=== PATIENT | female | born 1970 | race Caucasian/White ===

== ENCOUNTER 2020-03-03 01:52 | Inpatient (IN) | payer OTHER, SELFPAY ==
[2020-03-03] VITALS (13 sets, daily range): BP systolic 84–128; BP diastolic 51–85; PULSE 75–89; RESP 14–20; TEMP 36.6–37.1; O2SAT 91–100; BMI 52.7
--- NOTE | 2020-03-03 | ECG_ITS ---
Test Reason : OD Blood Pressure : / mmHG Vent. Rate : 077 BPM Atrial Rate : 077 BPM P-R Int : 182 ms QRS Dur : 078 ms QT Int : 422 ms P-R-T Axes : -14 027 022 degrees QTc Int : 477 ms Normal sinus rhythm Normal ECG When compared with ECG of 03-MAR-2020 02:36, Nonspecific T wave abnormality no longer evident in Anterior leads Referred By: Imelda Hoyt Electronically Signed By:SHAYLEE MEEHAN MD
--- NOTE | 2020-03-03 02:26 | ECG_ITS ---
Test Reason : overdose Blood Pressure : / mmHG Vent. Rate : 088 BPM Atrial Rate : 088 BPM P-R Int : 160 ms QRS Dur : 082 ms QT Int : 404 ms P-R-T Axes : -13 037 026 degrees QTc Int : 488 ms Normal sinus rhythm Nonspecific T wave abnormality Prolonged QT Abnormal ECG No previous ECGs available Referred By: Chelsea Mendez Electronically Signed By:SHAYLEE MEEHAN MD
--- NOTE | 2020-03-03 02:41 | PC.NURSE ---
Pt to room #17 after taking unknown amt of seroquel which she has been pocketing from visiting nurse at home. Pt arrives alert and sleepy, slurring speech. pt chg into hospital gown with security at bedside. Belongings locked up. Pt on monitor with HR 86. PO 98% on RA. VS obtained. Sitter at bedside with pt for safety. HL inserted into right foot. Pt is a very difficult stick d/t substance abuse according to EMS. EKG obtained to MD for eval. Awaiting for further orders.
[2020-03-03] MEDS: 0.9 % Sodium Chloride 1,000 ML 999 ML IVCONT ×2 (03:00→07:10)
[2020-03-03 03:05] LABS: MANUAL DIFF FLAG NO
[2020-03-03 03:07] LABS: Basophils Percent Auto 0.2 % (0-2); Hemoglobin 11.9 g/dl (12.0-16.0); Lymphocytes Absolute Auto 1.7 X10*3/uL (1.2-4.9); Lymphocytes Percent Auto 31.3 % (20-40); Mean Corpuscular HGB Conc 32.2 g/dl (31.0-35.0); Mean Corpuscular Hemoglobin 28.1 pg (27.0-33.0); Mean Corpuscular Volume 87.5 fL (80-98); Mean Platelet Volume 11.4 fL (9.4-12.3); Monocytes Absolute Auto 0.5 X10*3/uL (0.1-1.2); Monocytes Percent Auto 8.2 % (2-11); Neutrophils Absolute Auto 3.3 X10*3/uL (2.0-8.3); Neutrophils Percent Auto 60.3 % (45-73); Platelet Count 214 X10*3/uL (160-400); Red Blood Count 4.23 X10*6/uL (4.20-5.50); Red Cell Distribution Width 16.5 % (11.0-16.0); White Blood Count 5.5 X10*3/uL (4.8-10.8)
[2020-03-03 03:28] LABS: Ethanol 73 mg/dL
[2020-03-03 03:32] LABS: Acetaminophen LAB < 1 mcg/mL (<30); Alanine Aminotransferase 10 U/L (0-31); Albumin Level 4.3 g/dL (3.5-5.0); Alkaline Phosphatase 93 U/L (39-117); Anion Gap 19 (12-20); Aspartate Amino Transferase 14 U/L (5-31); Bilirubin Total 0.3 mg/dL (0.0-1.0); Blood Urea Nitrogen 12 mg/dL (9-16); Carbon Dioxide 19 mmol/L (22-29); Chloride 109 mmol/L (96-108); Estimated Glomerular Filt Rate > 60; Glucose Random 110 mg/dL (60-115); Potassium 3.2 mmol/l (3.3-5.1); Salicylate < 5.0 mg/dL (15-30); Sodium 144 mmol/L (135-145); Total Protein 7.6 g/dL (6.5-8.0)
--- NOTE | 2020-03-03 03:49 | PC.NURSE ---
Reported pt to Poison Control which recommended the following: Monitor pt for 12 hrs, watch for REPEAT CHIEF and respiratory depression. Intubate if loses airway, Give fluids if becomes hypotensive. Watch for QT prolongation, Torsades, tachycardia, seizure activity. Repeat CMP, Tylenol and ASA in [address] Mendez aware of guidelines.
--- NOTE | 2020-03-03 06:43 | ED.OVERDOSE ---
HPI - Overdose General Chief Complaint: Overdose Stated Complaint: overdose Time Seen by Provider: 03/03/20 02:24 History of Present Illness HPI Narrative: patient is a 50-year-old female admitted to using alcohol and Seroquel prior to arrival and attempt to kill herself. Patient unsure as to the number tablets of Seroquel. Unsure as to the dose of the Seroquel patient thinks that she took it approximately 1 hour prior to arrival in the emergency department. She denies any chest pain and shortness of breath. She denies any other medication. Normally gets her meds through a visiting nurse. Patient somehow got a hold of Seroquel. Patient denies any marijuana or heroin use. Patient denies any cocaine use. She is from home. Related Data Allergies Allergy/AdvReac Type Severity Reaction Status Date / Time trazodone [TRAZODONE] Allergy Severe SHORTNESS Unverified 01/25/20 15:23 OF BREATH, GASPING FOR AIR , SOB aspirin [ASPIRIN] Allergy Unknown STOMACH Unverified 01/25/20 15:23 UPSET, Nausea, nausa ciprofloxacin [Cipro] Allergy Unknown Rash Verified 10/02/15 00:00 promethazine [Phenergan] Allergy Unknown Hives Verified 10/02/15 00:00 Sulfa (Sulfonamide Allergy Unknown Verified 10/02/15 00:00 Antibiotics) From [facility] Allergy Unknown HIVES Uncoded 01/25/20 15:23 From [facility] Allergy Unknown HIVES Uncoded 01/25/20 15:23 Review of Systems Review of Systems: Patient refused to answer detailed review of system PMFSH Past Medical History Attestation statement: The following information was validated with the patient. Social History Social History 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: current Alcohol type: hard liquor Smoking Status: Current every day smoker Use of substances other than those prescribed or required for medical reasons: Unable to respond Advance Directives: No Advance Directives Information Provided: No Physical Exam Vital Signs: Vital Signs: Vital Signs Temp Pulse Resp BP Pulse Ox 03/03/20 04:00 85 16 93/58 L 97 03/03/20 03:28 86 18 100/58 L 97 03/03/20 02:11 98 F 89 18 91/53 L 97 Body Mass Index 52.7 Appearance: Alert. Oriented X3. No acute distress. Eyes: Pupils equal, round and reactive to light. ENT: Pharynx normal. Neck: Normal inspection. Neck supple. No lymph nodes noted. No crepitus CVS: Normal heart rate and rhythm. Pulses normal. Normal S1 and S2 Respiratory: No respiratory distress. Breath sounds normal. No Wheezing. No rales Abdomen: Soft and nontender. No rigidity. No distention. good BS x4 Skin: Skin warm and dry. Normal skin color. Normal skin turgor. Extremities: No lower extremity edema. Neurovascular intact to all extremities. No Lacerations. No Rash Neuro: Oriented X 3. No motor deficit. No sensory deficit. Moving all extermities. No slurred speech MDM - Overdose MDM Narrative Medical decision making narrative: patient's EKG showed a sinus pattern heart rate is 88. Patient's QTC is 488. patient monitor in the emergency department. Case was discussed with poison control. Agree to plan of monitoring for the next 10 hours. Patient will be referred for crisis intervention. Patient's aspirin and Tylenol levels were negative. Electrolytes unremarkable. Patient monitor in the emergency department with no ill affects. Will make sure Patient get a Evaluated by crisis. Lab Data Result diagrams: 03/03/20 02:59 03/03/20 02:59 Labs: Lab Results 03/03/20 03/03/20 03/03/20 Range/Units 02:59 02:59 02:59 WBC 5.5 (4.8-10.8) X10*3/uL RBC 4.23 (4.20-5.50) X10*6/uL Hgb 11.9 L (12.0-16.0) g/dl Hct 37.0 (37-47) % MCV 87.5 (80-98) fL MCH 28.1 (27.0-33.0) pg MCHC 32.2 (31.0-35.0) g/dl RDW 16.5 H (11.0-16.0) % Plt Count 214 (160-400) X10*3/uL MPV 11.4 (9.4-12.3) fL Immature Gran % (Auto) 0.0 (0.0-0.4) % Neut % (Auto) 60.3 (45-73) % Lymph % (Auto) 31.3 (20-40) % [place] % (Auto) 8.2 (2-11) % Eos % (Auto) 0.0 (0-4) % Baso % (Auto) 0.2 (0-2) % Lymph # (Auto) 1.7 (1.2-4.9) X10*3/uL [place] # (Auto) 0.5 (0.1-1.2) X10*3/uL Eos # (Auto) 0.0 (0.0-0.4) X10*3/uL Baso # (Auto) 0.0 (0.0-0.2) X10*3/uL Abs Immat Gran (auto) 0.00 (0.00-0.03) X10*3/uL Absolute Neuts (auto) 3.3 (2.0-8.3) X10*3/uL Absolute Nucleated RBC 0.000 (0.0-0.012) X10*3/uL Nucleated RBC % (auto) 0.0 (0.0-0.2) /100WBC Sodium 144 (135-145) mmol/L Potassium 3.2 L (3.3-5.1) mmol/l Chloride 109 H (96-108) mmol/L Carbon Dioxide 19 L (22-29) mmol/L Anion Gap 19 (12-20) BUN 12 (9-16) mg/dL Creatinine 0.75 (0.5-1.4) mg/dL Estim Creat Clear Calc 121.0 Estimated GFR > 60 Random Glucose 110 (60-115) mg/dL Calcium 9.0 (8.4-10.2) mg/dL Total Bilirubin 0.3 (0.0-1.0) mg/dL AST 14 (5-31) U/L ALT 10 (0-31) U/L Alkaline Phosphatase 93 (39-117) U/L Total Protein 7.6 (6.5-8.0) g/dL Albumin 4.3 (3.5-5.0) g/dL Salicylates < 5.0 L (15-30) mg/dL Acetaminophen < 1 (<30) mcg/mL Ethyl Alcohol 73 mg/dL
--- NOTE | 2020-03-03 07:10 | PC.NURSE ---
REPORT RECEIVED FROM BIANCA SANTORO. PT SLEEPING ON STRETCHER. AROUSABLE TO VERBAL STIMULI, BUT DRIFTS BACK TO SLEEP QUICKLY. ORIENTED X4. SKIN WPD. RR WNL, BUT SPO2 91-93% ON RA; PLACED ON 2L VIA NC. HYPOTENSIVE AT 80S/40S; MD MADE AWARE AND 1L NS NOW INFUSING PER MD VERBAL ORDER. NSR ON MONITOR. 1:[address] WILL CONTINUE TO MONITOR.
--- NOTE | 2020-03-03 08:39 | PC.NURSE ---
faxed release form to [facility] to get dose info.
--- NOTE | 2020-03-03 08:47 | PC.NURSE ---
methadone dose verified. form faxed to pharmacy
--- NOTE | 2020-03-03 09:43 | PC.NURSE ---
ATTEMPTED TO ASSIST PATIENT WITH AMBULATION TO BATHROOM, BUT PT C/O DIZZINESS AND WEAKNESS UPON SITTING UP TO SIDE OF BED. ASSISTED BACK TO LYING POSITION AND BED SOTO USED.
[2020-03-03 10:00] LABS: Amphetamine Screen Urine Not Detected (Not Detect); Barbiturates, Urine Not Detected (Not Detect); Benzodiazepines Screen Urine POSITIVE (Not Detect); Cannabinoid Screen Urine Not Detected (Not Detect); Cocaine Screen Urine POSITIVE (Not Detect); Opiate Screen Urine Not Detected (Not Detect); Phencyclidine Screen Urine Not Detected (Not Detect)
--- NOTE | 2020-03-03 11:37 | PC.NURSE ---
PT STOOD UP FROM STRETCHER, BUT TOO UNSTEADY ON FEET TO WALK TO BATHROOM. ASSISTED BACK INTO BED AND ASSISTED WITH BED SOTO.
[2020-03-03 12:35] LABS: Acetaminophen LAB < 1 mcg/mL (<30); Anion Gap 13 (12-20); Blood Urea Nitrogen 12 mg/dL (9-16); Calcium 8.2 mg/dL (8.4-10.2); Carbon Dioxide 19 mmol/L (22-29); Chloride 115 mmol/L (96-108); Creatinine Clr Calc Pharmacy 126.1; Estimated Glomerular Filt Rate > 60; Glucose Random 73 mg/dL (60-115); Potassium 3.7 mmol/l (3.3-5.1); Sodium 143 mmol/L (135-145)
[2020-03-03 12:44] LABS: Salicylate < 5.0 mg/dL (15-30)
[2020-03-03] MEDS: methADONE HCl 10 MG TABLET 9 MG PO (13:05)
--- NOTE | 2020-03-03 14:10 | PC.NURSE ---
pt ambulating independently to and from restroom. denies any dizziness. gait steady. sitter accompanying.
--- NOTE | 2020-03-03 14:28 | PC.NURSE ---
pt now medically cleared. n faxed.
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
--- NOTE | 2020-03-03 17:13 | PC.NURSE ---
Received call from [facility] stating that they never received a fax- refaxed and called again.
--- NOTE | 2020-03-03 17:50 | PC.NURSE ---
Pt reporting anxiety, states she normally has clonopin prn. Pt awake, alert. Declining tylenol or motrin for back pain.
[2020-03-03] MEDS: clonazePAM 1 MG TABLET PO (20:13)
[2020-03-03] MEDS: Zolpidem Tartrate 5 MG TABLET 10 MG PO (22:15)
--- NOTE | 2020-03-03 22:24 | PC.NURSE ---
Patient medication rec redone by calling her pharmacy and have them fax medication list, Patient has active Oxcarbazapine order per pharmacy, since patient's medication is handled by visiting nurse, patient has not clue what has been picked from Pharmacy. Patient informed this blog writer that she has stopped taking Trileptal for long time because medication caused her feel uncomfortable. Provider notified/medication discontinued.
[2020-03-04 05:51] VITALS: BP 115/73; PULSE 84; RESP 16; TEMP 36.9; O2SAT 97
--- NOTE | 2020-03-04 06:07 | PC.NURSE ---
[facility] called/spoke with Lorrie VALENZUELA/verified methadone dose. Patient takes 9 mg and last dose was 0n 03/02/20, patient received her 03/03/20 dose in main ED as one time order, Provider notified/approved/pending emar update. Patient in bed lying, awake, resting, will continue to monitor.
--- NOTE | 2020-03-04 07:13 | PC.NURSE ---
PT SITTING IN ROOM EATING BREAKFAST. NO SIGN OF DISTRESS NOTED. RESPIRATIONS EVEN/UNLABORED BILATERALLY. WILL CONTINUE TO MONITOR.
[2020-03-04] MEDS: Venlafaxine HCl ER 75 MG CAP.ER.24H PO (09:03)
[2020-03-04] MEDS: methADONE HCl 10 MG TABLET PO (09:03)
[2020-03-04] MEDS: Venlafaxine HCl ER 150 MG CAP.ER.24H PO (09:03)
[2020-03-04 09:12] VITALS: BP 129/78; PULSE 70; TEMP 36.4; O2SAT 98
[2020-03-04] MEDS: clonazePAM 0.5 MG TABLET PO (09:44)
[2020-03-04 10:00] VITALS: RESP 16
--- NOTE | 2020-03-04 12:25 | PC.NURSE ---
pt resting in room, respirations even/unlabored bilaterally, no sign of distress at this time. will continue to monitor.
[2020-03-04] MEDS: LORazepam 1 MG TABLET 2 MG PO (15:12)
--- NOTE | 2020-03-04 15:20 | PC.NURSE ---
Report received. Pt resting in bed, reporting anxiety, given ativan 2 MG PO. No other complaints. Continues to be a section 12 bed search.
[2020-03-04 15:53] VITALS: BP 122/74; PULSE 70; RESP 18; TEMP 37.1; O2SAT 98
--- NOTE | 2020-03-04 18:56 | PC.NURSE ---
Pt currently standing in doorway. Calm. No complaints at this time.
--- NOTE | 2020-03-04 20:13 | PC.NURSE ---
Pt had been sleeping but woke easily. Stated she is no longer suicidal but is depressed. is calm and cooperative. awaiting bedsearch results.
[2020-03-04] MEDS: clonazePAM 1 MG TABLET PO (20:43)
[2020-03-04] MEDS: QUEtiapine Fumarate 100 MG TABLET 250 MG PO (20:44)
[2020-03-04] MEDS: Zolpidem Tartrate 5 MG TABLET 10 MG PO (21:44)
[2020-03-05 00:32] VITALS: BP 101/66; PULSE 86; RESP 18; TEMP 37.2; O2SAT 96
[2020-03-05 06:34] VITALS: BP 115/73; PULSE 88; RESP 18; TEMP 35.8; O2SAT 95
[2020-03-05] MEDS: Ibuprofen 600 MG TABLET PO (06:43)
--- NOTE | 2020-03-05 07:00 | PC.NURSE ---
Report recieved. Pt currently eating breakfast, denies complaints. PT is inpatient bedsearch.
[2020-03-05] MEDS: Venlafaxine HCl ER 150 MG CAP.ER.24H PO (08:26)
[2020-03-05] MEDS: clonazePAM 0.5 MG TABLET PO ×2 (08:26→17:55)
[2020-03-05] MEDS: Venlafaxine HCl ER 75 MG CAP.ER.24H PO (08:26)
[2020-03-05 08:56] VITALS: BP 102/64; PULSE 66; RESP 18; TEMP 36.6
[2020-03-05] MEDS: QUEtiapine Fumarate 25 MG TABLET PO (13:48)
[2020-03-05 16:31] VITALS: BP 117/72; PULSE 74; RESP 20; TEMP 36.9; O2SAT 96
[2020-03-05 19:06] VITALS: BP 136/91; PULSE 68; RESP 20; TEMP 37; O2SAT 98
[2020-03-05] MEDS: LORazepam 1 MG TABLET 2 MG PO (19:09)
--- NOTE | 2020-03-05 19:11 | PC.NURSE ---
pt feeling aggitated, pt is aox3 denies pain, steady gait. po drink and snack given. pt treated with ativan po prn. pt calm and cooperative.
--- NOTE | 2020-03-05 20:57 | PC.NURSE ---
pt seen by laly receiving [facility] for abscess under pt right arm. expressed by provider and waiting order for antibx. pt roxana well,
[2020-03-05] MEDS: clonazePAM 1 MG TABLET PO (21:08)
[2020-03-05] MEDS: cephALEXin 500 MG CAPSULE PO (21:08)
[2020-03-05] MEDS: QUEtiapine Fumarate 100 MG TABLET 250 MG PO (21:09)
[2020-03-05] MEDS: OXcarbazepine 300 MG TABLET 600 MG PO (21:09)
--- NOTE | 2020-03-05 22:10 | PC.NURSE ---
Patient sitting in her bed watching TV, denied distress, will continue to monmitor.
[2020-03-06 00:12] VITALS: BP 94/58; PULSE 89; RESP 17; TEMP 36.8; O2SAT 97
--- NOTE | 2020-03-06 00:38 | PC.NURSE ---
Patient in bed appears sleeping, no distress observed/reported, respiration +/=/non-labored bilaterally. Will continue to monitor.
--- NOTE | 2020-03-06 02:12 | PC.NURSE ---
Patient in bed appears sleeping, no distress observed/reported, respiration +/=/non-labored bilaterally. Will continue to monitor for safety and provide comfort.
--- NOTE | 2020-03-06 04:08 | PC.NURSE ---
Patient in bed lying, awake, watching TV, no distress reported, out of room for snacks and TV remote. Will continue to monitor.
--- NOTE | 2020-03-06 06:05 | PC.NURSE ---
Patient in bed appears sleeping, no distress observed/reported, respiration +/=/non-labored bilaterally, will continue to monitor, provide comfort & safety.
--- NOTE | 2020-03-06 06:49 | PC.NURSE ---
Report recieved. Pt currently sleeping, respirations even and unlabored, in no apparent distress. Pt is inpatient bedsearch.
[2020-03-06 06:54] VITALS: BP 107/70; PULSE 77; RESP 18; TEMP 36.8; O2SAT 97
[2020-03-06] MEDS: QUEtiapine Fumarate 25 MG TABLET PO ×2 (07:19→16:54)
[2020-03-06 09:20] VITALS: BP 91/60; PULSE 83; TEMP 36.8
[2020-03-06] MEDS: Venlafaxine HCl ER 75 MG CAP.ER.24H PO (09:37)
[2020-03-06] MEDS: Venlafaxine HCl ER 150 MG CAP.ER.24H PO (09:37)
[2020-03-06] MEDS: cephALEXin 500 MG CAPSULE PO ×4 (09:37→21:14)
[2020-03-06] MEDS: clonazePAM 0.5 MG TABLET PO (10:23)
[2020-03-06 10:49] LABS: SARS COV2 PCR INHOUSE NEGATIVE (Negative)
--- NOTE | 2020-03-06 13:18 | PC.NURSE ---
PT aware of admission to m5 later today, pt reporting some anxiety, calm and cooperative.
[2020-03-06] MEDS: LORazepam 1 MG TABLET 2 MG PO (13:36)
[2020-03-06 16:43] VITALS: BP 94/67; PULSE 82; RESP 16; TEMP 36.2; O2SAT 97
[2020-03-06] MEDS: clonazePAM 1 MG TABLET PO (21:14)
[2020-03-06] MEDS: QUEtiapine Fumarate 100 MG TABLET 250 MG PO (21:15)
--- NOTE | 2020-03-06 22:03 | PC.NURSE ---
Pt is a 50 year old Northern Irish speaking femal
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
[2020-03-07 06:00] VITALS: BP 142/84; PULSE 100; RESP 16; TEMP 36.2; O2SAT 98
[2020-03-07] MEDS: QUEtiapine Fumarate 25 MG TABLET PO (06:10)
[2020-03-07 06:15] VITALS: BP 88/52; PULSE 91; RESP 16; TEMP 37
[2020-03-07] MEDS: cephALEXin 500 MG CAPSULE PO ×4 (09:28→20:08)
[2020-03-07] MEDS: Venlafaxine HCl ER 75 MG CAP.ER.24H PO (09:30)
[2020-03-07] MEDS: Venlafaxine HCl ER 150 MG CAP.ER.24H PO (09:30)
[2020-03-07] MEDS: LORazepam 1 MG TABLET 2 MG PO ×2 (10:05→16:43)
[2020-03-07] MEDS: clonazePAM 0.5 MG TABLET PO (14:16)
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
[2020-03-07 18:00] VITALS: BP 118/67; BP 96/51; PULSE 77; PULSE 91; RESP 16; TEMP 35.8; TEMP 36.6; O2SAT 96
[2020-03-07] MEDS: Zolpidem Tartrate 5 MG TABLET 10 MG PO (20:08)
[2020-03-07] MEDS: clonazePAM 1 MG TABLET PO (20:08)
[2020-03-07] MEDS: QUEtiapine Fumarate 100 MG TABLET 250 MG PO (20:09)
[2020-03-08 06:00] VITALS: BP 96/51; PULSE 91; TEMP 32.7; TEMP 35.8
[2020-03-08] MEDS: QUEtiapine Fumarate 25 MG TABLET PO ×2 (06:55→18:07)
[2020-03-08] MEDS: cephALEXin 500 MG CAPSULE PO ×4 (09:01→20:02)
[2020-03-08] MEDS: Venlafaxine HCl ER 75 MG CAP.ER.24H PO (09:02)
[2020-03-08] MEDS: Venlafaxine HCl ER 150 MG CAP.ER.24H PO (09:03)
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
[2020-03-08] MEDS: clonazePAM 0.5 MG TABLET PO ×2 (09:29→18:14)
[2020-03-08] MEDS: LORazepam 1 MG TABLET 2 MG PO (13:41)
[2020-03-08 18:00] VITALS: BP 121/71; BP 125/74; PULSE 73; PULSE 80; TEMP 36.8; TEMP 37.3
[2020-03-08] MEDS: QUEtiapine Fumarate 100 MG TABLET 250 MG PO (20:02)
[2020-03-08] MEDS: clonazePAM 1 MG TABLET PO (20:04)
--- NOTE | 2020-03-08 22:30 | PC.NURSE ---
Pt retracted her 3-day notice this pm. Dr Miller notified as was Mona Beal
[2020-03-09] MEDS: QUEtiapine Fumarate 25 MG TABLET PO (01:09)
[2020-03-09 06:20] VITALS: BP 97/56; PULSE 79; RESP 18; TEMP 36.9
[2020-03-09] MEDS: Venlafaxine HCl ER 75 MG CAP.ER.24H PO (09:02)
[2020-03-09] MEDS: Venlafaxine HCl ER 150 MG CAP.ER.24H PO (09:02)
[2020-03-09] MEDS: cephALEXin 500 MG CAPSULE PO ×4 (09:02→21:08)
[2020-03-09] MEDS: clonazePAM 0.5 MG TABLET PO (09:07)
--- NOTE | 2020-03-09 10:57 | P.PNPSI_ITS ---
Subjective Subjective Date of Service: 03/09/20 Reason For Visit: overdose Subjective Notes: Conditional Voluntary Interim History: Wants to get out of here, but admits to leaving [place] 3 wks ago too early and then [place] She has had many losses in last months her 13yo son () , her neighbor she was close to would hang out with all day outside, and another friend Medication Compliance: Yes Side effects from medications: No Attending Groups: Yes Review of Systems Acute medical concerns: No Medical Review of Systems: unchanged Review of Systems Review of Systems Yes all other systems are reviewed and are negative Mental Status Exam Mental Status Exam Narrative: casually dressed, just got into a bitch session with another patient who accused me of looking at clip board - when pt was just putting it back - Patient Appearance: Well Grooomed and Appropriate Patient Orientation: Person, Place, Time and Situation Level of Consciousness: Awake and Appropriate Patient Behavior: Talkative, Cooperative and Good Eye Contact Behavior Comments: irritable Mood Description: Angry (easily angered by others ) Affect Description: Depressed, Anxious and Sad Patient Cognition Impaired: No Ability to Follow Directions: Good Speech Pattern: Clear Hallucinations: None Delusions: Not Present Thought Process: Intact and Goal Oriented Thought Content: positive for Intact, positive for Goal Oriented and positive fo r Suicidal Ideation Depressive Symptoms: Increased Anxiety, Diff. Making Decisions, Increased Irritability, Difficulty Sleeping and Hopelessness Abnormal Motor Activity Signs and Symptoms: Restlessness Judgement: Fair Diagnostics Vital Signs (24Hr): Vital Signs - 24 hr 03/08/20 18:00 03/09/20 06:20 Temperature 99.1 F 98.4 F Pulse Rate 80 79 Respiratory Rate 18 Blood Pressure 121/71 97/56 L Body Mass Index 52.7 Labs Results: 03/03/20 02:59 03/03/20 11:54 Medications Medications Current Medications Generic Name Dose Route Start Last Admin Trade Name Freq PRN Reason Stop Dose Admin Acetaminophen 650 mg 03/06/20 18:05 Acetaminophen 325 Mg Tablet PO Q6H PRN Headache/Pain Mild Scale (1-3) Albuterol Sulfate 2 puff 03/04/20 09:39 03/07/20 20:41 Albuterol Sulfate 90 Mcg 18 Gm Inhaler INHALE 2 puff Q4H PRN Administration Shortness Of Breath Cephalexin HCl 500 mg 03/05/20 21:00 03/09/20 09:02 Cephalexin 500 Mg Capsule PO 03/15/20 20:59 500 mg QID ALICIA Administration Clonazepam 1 mg 03/09/20 21:00 Clonazepam 1 Mg Tablet PO BEDTIME ALICIA Doxycycline Hyclate 100 mg 03/05/20 21:00 03/09/20 09:02 Doxycycline Hyclate 100 Mg Tablet PO 03/15/20 20:58 100 mg BID ALICIA Administration Hydroxyzine HCl 25 mg 03/06/20 18:05 Hydroxyzine Hcl 25 Mg Tablet PO BEDTIME PRN Anxiety Lorazepam 2 mg 03/04/20 13:47 03/08/20 13:41 Lorazepam 1 Mg Tablet PO 2 mg RQ6H PRN Administration Anxiety Methadone HCl 10 mg 03/05/20 09:00 03/09/20 09:02 Methadone Hcl 1 Mg/0.1 Ml Oral.Conc PO 10 mg DAILY ALICIA Administration Nicotine Polacrilex 2 mg 03/06/20 18:05 Nicotine Polacrilex 2 Mg Gum BUCCAL Q2H PRN Nicotine Cravings Oxcarbazepine 300 mg 03/04/20 09:00 03/09/20 09:04 Oxcarbazepine 300 Mg Tablet PO Not Given DAILY ALICIA Oxcarbazepine 600 mg 03/04/20 21:00 03/08/20 20:06 Oxcarbazepine 300 Mg Tablet PO Not Given BEDTIME ALICIA Quetiapine Fumarate 25 mg 03/04/20 09:39 03/09/20 01:09 Quetiapine Fumarate 25 Mg Tablet PO 25 mg TID PRN Administration Anxiety Quetiapine Fumarate 250 mg 03/04/20 21:00 03/08/20 20:02 Quetiapine Fumarate 100 Mg Tablet PO 250 mg BEDTIME ALICIA Administration Venlafaxine HCl 75 mg 03/04/20 09:00 03/09/20 09:02 Venlafaxine Hcl Er 75 Mg Cap.Er.24h PO 75 mg DAILY ALIICA Administration Venlafaxine HCl 150 mg 03/04/20 09:00 03/09/20 09:02 Venlafaxine Hcl Er 150 Mg Cap.Er.24h PO 150 mg DAILY ALICIA Administration Zolpidem Tartrate 5 mg 03/08/20 22:19 Zolpidem Tartrate 5 Mg Tablet PO BEDTIME PRN Insomnia Allergies Allergies Allergy/AdvReac Type Severity Reaction Status Date / Time trazodone [TRAZODONE] Allergy Severe SHORTNESS Verified 03/03/20 08:18 OF BREATH, GASPING FOR AIR , SOB aspirin [ASPIRIN] Allergy Unknown STOMACH Verified 03/03/20 08:18 UPSET, Nausea, nausa ciprofloxacin [Cipro] Allergy Unknown Rash Verified 10/02/15 00:00 promethazine [Phenergan] Allergy Unknown Hives Verified 10/02/15 00:00 Sulfa (Sulfonamide Allergy Unknown Unknown Verified 03/03/20 08:18 Antibiotics) Assessment & Plan Assessment & Plan (1) Cocaine use disorder, moderate, dependence: Status: Acute Code(s): F14.20 - Cocaine dependence, uncomplicated Assessment and Plan: denies cravings (2) Opioid use disorder, severe, dependence: Status: Acute Code(s): F11.20 - Opioid dependence, uncomplicated Assessment and Plan: on meathdone (3) Post traumatic stress disorder: Status: Acute Code(s): F43.10 - Post-traumatic stress disorder, unspecified Assessment and Plan: taking benzos for anxiety - on 2 different here- clonazepam she came in on and added ativan discussed with pt changing to clonazepam and not being on 2 different benzo so will dc ativan and give prn clonazepam instead (4) Major depression, recurrent: Status: Acute Code(s): F33.9 - Major depressive disorder, recurrent, unspecified Assessment and Plan: tolerating inc venlafaxine, has had cumulative losses so experiencing grief Greater than 50% of the session was spent on counseling and/or coordination of care
[2020-03-09] MEDS: LORazepam 1 MG TABLET 2 MG PO (13:12)
[2020-03-09 18:00] VITALS: BP 125/74; PULSE 73; TEMP 36.8
[2020-03-09] MEDS: hydrOXYzine HCL 25 MG TABLET PO (19:00)
[2020-03-09] MEDS: QUEtiapine Fumarate 100 MG TABLET 250 MG PO (21:06)
[2020-03-09] MEDS: clonazePAM 1 MG TABLET PO (21:07)
[2020-03-10 06:30] VITALS: BP 97/54; PULSE 66; RESP 16; TEMP 36.8; O2SAT 97
[2020-03-10] MEDS: cephALEXin 500 MG CAPSULE PO ×4 (08:51→22:02)
[2020-03-10] MEDS: Venlafaxine HCl ER 150 MG CAP.ER.24H PO (08:52)
[2020-03-10] MEDS: clonazePAM 1 MG TABLET PO ×2 (08:52→22:03)
[2020-03-10] MEDS: Venlafaxine HCl ER 75 MG CAP.ER.24H PO (08:52)
[2020-03-10] MEDS: QUEtiapine Fumarate 50 MG TABLET PO (13:03)
--- NOTE | 2020-03-10 15:05 | P.PNPSI_ITS ---
Subjective Subjective Date of Service: 03/10/20 Reason For Visit: overdose Subjective Notes: Conditional Voluntary Interim History: tPatient wanting to leave even though she retracted 3 day, reminded her how she fel she left [place] too soon then [place]- Pt continues irritable - concerned about my writing 1mg clonazepam/day prn instead 0.5mg bid prn feels it doesn't last 10 hrs Medication Compliance: Yes Side effects from medications: No Attending Groups: Yes Review of Systems Acute medical concerns: No Medical Review of Systems: unchanged Mental Status Exam Mental Status Exam Narrative: seems constantly annoyed, wearing levy Patient Orientation: Person, Place, Time and Situation Level of Consciousness: Awake Patient Behavior: Appropriate Mood Description: Labile (mildly irritable) Affect Description: Anxious Ability to Follow Directions: Fair Speech Pattern: Clear Thought Process: Intact Thought Content: positive for Intact and positive for Goal Oriented Depressive Symptoms: Increased Anxiety and Difficulty Sleeping Judgement: Fair Diagnostics Vital Signs (24Hr): Vital Signs - 24 hr 03/09/20 18:00 03/10/20 06:30 Temperature 98.2 F 98.3 F Pulse Rate 73 66 Respiratory Rate 16 Blood Pressure 125/74 97/54 L Pulse Oximetry 97 Body Mass Index Labs Results: 03/03/20 02:59 03/03/20 11:54 Medications Medications Current Medications Generic Name Dose Route Start Last Admin Trade Name Ariel PRN Reason Stop Dose Admin Acetaminophen 650 mg 03/06/20 18:05 Acetaminophen 325 Mg Tablet PO Q6H PRN Headache/Pain Mild Scale (1-3) Albuterol Sulfate 2 puff 03/04/20 09:39 03/07/20 20:41 Albuterol Sulfate 90 Mcg 18 Gm Inhaler INHALE 2 puff Q4H PRN Administration Shortness Of Breath Cephalexin HCl 500 mg 03/05/20 21:00 03/10/20 13:03 Cephalexin 500 Mg Capsule PO 03/15/20 20:59 500 mg QID ALICIA Administration Clonazepam 1 mg 03/09/20 21:00 03/09/20 21:07 Clonazepam 1 Mg Tablet PO 1 mg BEDTIME ALICIA Administration Clonazepam 0.5 mg 03/10/20 11:50 Clonazepam 1 Mg Tablet PO BID PRN anxiety Doxycycline Hyclate 100 mg 03/05/20 21:00 03/10/20 08:52 Doxycycline Hyclate 100 Mg Tablet PO 03/15/20 20:58 100 mg BID ALICIA Administration Hydroxyzine HCl 25 mg 03/06/20 18:05 03/09/20 19:00 Hydroxyzine Hcl 25 Mg Tablet PO 25 mg BEDTIME PRN Administration Anxiety Methadone HCl 10 mg 03/05/20 09:00 03/10/20 08:52 Methadone Hcl 1 Mg/0.1 Ml Oral.Conc PO 10 mg DAILY ALICIA Administration Naloxone HCl 4 mg 03/10/20 09:24 Naloxone Hcl Nasal 4 Mg [place] NOSTRILALT ONCE PRN opioid overdose Nicotine Polacrilex 2 mg 03/06/20 18:05 Nicotine Polacrilex 2 Mg Gum BUCCAL Q2H PRN Nicotine Cravings Quetiapine Fumarate 200 mg 03/10/20 21:00 Quetiapine Fumarate 50 Mg Tablet PO BEDTIME ALICIA Quetiapine Fumarate 50 mg 03/10/20 11:50 03/10/20 13:03 Quetiapine Fumarate 50 Mg Tablet PO 50 mg TID PRN Administration Anxiety Venlafaxine HCl 75 mg 03/04/20 09:00 03/10/20 08:52 Venlafaxine Hcl Er 75 Mg Cap.Er.24h PO 75 mg DAILY ALICIA Administration Venlafaxine HCl 150 mg 03/04/20 09:00 03/10/20 08:52 Venlafaxine Hcl Er 150 Mg Cap.Er.24h PO 150 mg DAILY ALICIA Administration Zolpidem Tartrate 5 mg 03/08/20 22:19 Zolpidem Tartrate 5 Mg Tablet PO BEDTIME PRN Insomnia Allergies Allergies Allergy/AdvReac Type Severity Reaction Status Date / Time trazodone [TRAZODONE] Allergy Severe SHORTNESS Verified 03/03/20 08:18 OF BREATH, GASPING FOR AIR , SOB aspirin [ASPIRIN] Allergy Unknown STOMACH Verified 03/03/20 08:18 UPSET, Nausea, nausa ciprofloxacin [Cipro] Allergy Unknown Rash Verified 10/02/15 00:00 promethazine [Phenergan] Allergy Unknown Hives Verified 10/02/15 00:00 Sulfa (Sulfonamide Allergy Unknown Unknown Verified 03/03/20 08:18 Antibiotics) Assessment & Plan Assessment & Plan (1) Post traumatic stress disorder: Status: Acute Code(s): F43.10 - Post-traumatic stress disorder, unspecified Assessment and Plan: hypervigilant taking clonazepam and seroquel (2) Major depression, recurrent: Status: Acute Code(s): F33.9 - Major depressive disorder, recurrent, unspecified Assessment and Plan: reports best she did was on sertraline and seroquel and clonazepam on effexor now couldn't take sertraline any more (3) Drug overdose: Status: Acute Code(s): T50.901A - Poisoning by unspecified drugs, medicaments and biological substances, accidental (unintentional), initial encounter Assessment and Plan: reports having [place] on seroquel prior to admit Greater than 50% of the session was spent on counseling and/or coordination of care
[2020-03-10] MEDS: clonazePAM 1 MG TABLET 0.5 MG PO ×2 (15:16→18:58)
[2020-03-10 18:00] VITALS: BP 101/52; PULSE 72; TEMP 36.8
[2020-03-10] MEDS: QUEtiapine Fumarate 50 MG TABLET 200 MG PO (22:02)
[2020-03-11 06:00] VITALS: BP 100/57; PULSE 67; RESP 18; TEMP 36.8
--- NOTE | 2020-03-11 08:50 | P.PNPSI_ITS ---
Subjective Subjective Date of Service: 03/11/20 Reason For Visit: overdose Subjective Notes: Conditional Voluntary Interim History: More contrite today. Agrees she remains depressed, easily tearful, helpless. Feels fragile and unsafe out of hospital. Agrees to increase Effexor Medication Compliance: Yes Side effects from medications: No Attending Groups: Yes Review of Systems Review of Systems Yes all other systems are reviewed and are negative Mental Status Exam Mental Status Exam Narrative: seems constantly annoyed, wearing levy Patient Appearance: Well Grooomed and Appropriate Patient Orientation: Person, Place, Time and Situation Level of Consciousness: Awake Patient Behavior: Appropriate Behavior Comments: irritable Mood Description: Depressed and Labile (mildly irritable) Affect Description: Depressed and Anxious Patient Cognition Impaired: No Ability to Follow Directions: Fair Speech Pattern: Clear Memory Description: Intact Hallucinations: None Delusions: Not Present Depressive Symptoms: Diff. Making Decisions, Crying Spells, Unhappiness and Low Self Esteem Judgement: Poor Diagnostics Vital Signs (24Hr): Vital Signs - 24 hr 03/10/20 18:00 03/11/20 06:00 Temperature 98.2 F 98.3 F Pulse Rate 72 67 Respiratory Rate 18 Blood Pressure 101/52 L 100/57 L Body Mass Index 52.7 Labs Results: 03/03/20 02:59 03/03/20 11:54 Medications Medications Current Medications Generic Name Dose Route Start Last Admin Trade Name Freq PRN Reason Stop Dose Admin Acetaminophen 650 mg 03/06/20 18:05 Acetaminophen 325 Mg Tablet PO Q6H PRN Headache/Pain Mild Scale (1-3) Albuterol Sulfate 2 puff 03/04/20 09:39 03/07/20 20:41 Albuterol Sulfate 90 Mcg 18 Gm Inhaler INHALE 2 puff Q4H PRN Administration Shortness Of Breath Cephalexin HCl 500 mg 03/05/20 21:00 03/10/20 22:02 Cephalexin 500 Mg Capsule PO 03/15/20 20:59 500 mg QID ALICIA Administration Clonazepam 1 mg 03/09/20 21:00 03/10/20 22:03 Clonazepam 1 Mg Tablet PO 1 mg BEDTIME ALICIA Administration Clonazepam 0.5 mg 03/10/20 11:50 03/10/20 18:58 Clonazepam 1 Mg Tablet PO 0.5 mg BID PRN Administration anxiety Doxycycline Hyclate 100 mg 03/05/20 21:00 03/10/20 22:01 Doxycycline Hyclate 100 Mg Tablet PO 03/15/20 20:58 100 mg BID ALICIA Administration Hydroxyzine HCl 25 mg 03/06/20 18:05 03/09/20 19:00 Hydroxyzine Hcl 25 Mg Tablet PO 25 mg BEDTIME PRN Administration Anxiety Methadone HCl 10 mg 03/05/20 09:00 03/10/20 08:52 Methadone Hcl 1 Mg/0.1 Ml Oral.Conc PO 10 mg DAILY ALICIA Administration Naloxone HCl 4 mg 03/10/20 09:24 Naloxone Hcl Nasal 4 Mg [place] NOSTRILALT ONCE PRN opioid overdose Nicotine Polacrilex 2 mg 03/06/20 18:05 Nicotine Polacrilex 2 Mg Gum BUCCAL Q2H PRN Nicotine Cravings Quetiapine Fumarate 200 mg 03/10/20 21:00 03/10/20 22:02 Quetiapine Fumarate 50 Mg Tablet PO 200 mg BEDTIME ALICIA Administration Quetiapine Fumarate 50 mg 03/10/20 11:50 03/10/20 13:03 Quetiapine Fumarate 50 Mg Tablet PO 50 mg TID PRN Administration Anxiety Venlafaxine HCl 75 mg 03/04/20 09:00 03/10/20 08:52 Venlafaxine Hcl Er 75 Mg Cap.Er.24h PO 75 mg DAILY ALICIA Administration Venlafaxine HCl 150 mg 03/04/20 09:00 03/10/20 08:52 Venlafaxine Hcl Er 150 Mg Cap.Er.24h PO 150 mg DAILY ALICIA Administration Zolpidem Tartrate 5 mg 03/08/20 22:19 Zolpidem Tartrate 5 Mg Tablet PO BEDTIME PRN Insomnia Allergies Allergies Allergy/AdvReac Type Severity Reaction Status Date / Time trazodone [TRAZODONE] Allergy Severe SHORTNESS Verified 03/03/20 08:18 OF BREATH, GASPING FOR AIR , SOB aspirin [ASPIRIN] Allergy Unknown STOMACH Verified 03/03/20 08:18 UPSET, Nausea, nausa ciprofloxacin [Cipro] Allergy Unknown Rash Verified 10/02/15 00:00 promethazine [Phenergan] Allergy Unknown Hives Verified 10/02/15 00:00 Sulfa (Sulfonamide Allergy Unknown Unknown Verified 03/03/20 08:18 Antibiotics) Assessment & Plan Assessment & Plan (1) Post traumatic stress disorder: Status: Acute Code(s): F43.10 - Post-traumatic stress disorder, unspecified Assessment and Plan: hypervigilant taking clonazepam and seroquel (2) Major depression, recurrent: Status: Acute Code(s): F33.9 - Major depressive disorder, recurrent, unspecified Assessment and Plan: reports best she did was on sertraline and seroquel and clonazepam on effexor now couldn't take sertraline any more TMS education (3) Drug overdose: Status: Acute Code(s): T50.901A - Poisoning by unspecified drugs, medicaments and biological substances, accidental (unintentional), initial encounter Assessment and Plan: reports having [facility] on seroquel prior to admit Greater than 50% of the session was spent on counseling and/or coordination of care
[2020-03-11] MEDS: Venlafaxine HCl ER 150 MG CAP.ER.24H PO (09:22)
[2020-03-11] MEDS: cephALEXin 500 MG CAPSULE PO ×4 (09:22→20:28)
[2020-03-11] MEDS: Venlafaxine HCl ER 75 MG CAP.ER.24H PO ×2 (09:23→13:14)
[2020-03-11] MEDS: clonazePAM 1 MG TABLET 0.5 MG PO ×2 (09:31→15:51)
[2020-03-11] MEDS: QUEtiapine Fumarate 50 MG TABLET PO (12:11)
[2020-03-11 18:00] VITALS: BP 111/64; PULSE 75; TEMP 36.8
[2020-03-11] MEDS: QUEtiapine Fumarate 50 MG TABLET 200 MG PO (20:27)
[2020-03-11] MEDS: clonazePAM 1 MG TABLET PO (20:28)
[2020-03-11] MEDS: Ibuprofen 600 MG TABLET PO (22:44)
--- NOTE | 2020-03-12 05:21 | HO.PSYCHPN ---
Subjective Subjective Reason For Visit: overdose Interim History: Mood better after PRN meds. Remains depressed. Wants her support systems in place. Looking for grief groups. Ct meds. Will consider TMS later under advisement Review of Systems Review of Systems Yes all other systems are reviewed and are negative Mental Status Exam Mental Status Exam Narrative: seems constantly annoyed, wearing levy Patient Appearance: Well Grooomed and Appropriate Patient Orientation: Person, Place, Time and Situation Level of Consciousness: Awake Patient Behavior: Appropriate Behavior Comments: irritable Mood Description: Depressed and Labile (mildly irritable) Affect Description: Depressed and Anxious Patient Cognition Impaired: No Ability to Follow Directions: Fair Speech Pattern: Clear Memory Description: Intact Diagnostics Vital Signs (24Hr): Vital Signs - 24 hr 03/11/20 06:00 03/11/20 18:00 Temperature 98.3 F 98.2 F Pulse Rate 67 75 Respiratory Rate 18 Blood Pressure 100/57 L 111/64 Body Mass Index 52.7 Labs Results: 03/03/20 02:59 03/03/20 11:54 Medications Medications Current Medications Generic Name Dose Route Start Last Admin Trade Name Freq PRN Reason Stop Dose Admin Acetaminophen 650 mg 03/06/20 18:05 Acetaminophen 325 Mg Tablet PO Q6H PRN Headache/Pain Mild Scale (1-3) Albuterol Sulfate 2 puff 03/04/20 09:39 03/07/20 20:41 Albuterol Sulfate 90 Mcg 18 Gm Inhaler INHALE 2 puff Q4H PRN Administration Shortness Of Breath Cephalexin HCl 500 mg 03/05/20 21:00 03/11/20 20:28 Cephalexin 500 Mg Capsule PO 03/15/20 20:59 500 mg QID ALICIA Administration Clonazepam 1 mg 03/09/20 21:00 03/11/20 20:28 Clonazepam 1 Mg Tablet PO 1 mg BEDTIME ALICIA Administration Clonazepam 0.5 mg 03/10/20 11:50 03/11/20 15:51 Clonazepam 1 Mg Tablet PO 0.5 mg BID PRN Administration anxiety Doxycycline Hyclate 100 mg 03/05/20 21:00 03/11/20 20:28 Doxycycline Hyclate 100 Mg Tablet PO 03/15/20 20:58 100 mg BID ALICIA Administration Hydroxyzine HCl 25 mg 03/06/20 18:05 03/09/20 19:00 Hydroxyzine Hcl 25 Mg Tablet PO 25 mg BEDTIME PRN Administration Anxiety Ibuprofen 600 mg 03/11/20 20:52 03/11/20 22:44 Ibuprofen 600 Mg Tablet PO 600 mg Q6H PRN Administration Pain, Moderate (Pain Scale 4-6 Methadone HCl 10 mg 03/05/20 09:00 03/11/20 12:08 Methadone Hcl 1 Mg/0.1 Ml Oral.Conc PO 10 mg DAILY ALICIA Administration Naloxone HCl 4 mg 03/10/20 09:24 Naloxone Hcl Nasal 4 Mg [place] NOSTRILALT ONCE PRN opioid overdose Nicotine Polacrilex 2 mg 03/06/20 18:05 Nicotine Polacrilex 2 Mg [place] BUCCAL Q2H PRN Nicotine Cravings Quetiapine Fumarate 200 mg 03/10/20 21:00 03/11/20 20:27 Quetiapine Fumarate 50 Mg Tablet PO 200 mg BEDTIME ALICIA Administration Quetiapine Fumarate 50 mg 03/10/20 11:50 03/11/20 12:11 Quetiapine Fumarate 50 Mg Tablet PO 50 mg TID PRN Administration Anxiety Venlafaxine HCl 300 mg 03/12/20 09:00 Venlafaxine Hcl Er 150 Mg Cap.Er.24h PO DAILY ALICIA Zolpidem Tartrate 5 mg 03/08/20 22:19 Zolpidem Tartrate 5 Mg Tablet PO BEDTIME PRN Insomnia Allergies Allergies Allergy/AdvReac Type Severity Reaction Status Date / Time trazodone [TRAZODONE] Allergy Severe SHORTNESS Verified 03/03/20 08:18 OF BREATH, GASPING FOR AIR , SOB aspirin [ASPIRIN] Allergy Unknown STOMACH Verified 03/03/20 08:18 UPSET, Nausea, nausa ciprofloxacin [Cipro] Allergy Unknown Rash Verified 10/02/15 00:00 promethazine [Phenergan] Allergy Unknown Hives Verified 10/02/15 00:00 Sulfa (Sulfonamide Allergy Unknown Unknown Verified 03/03/20 08:18 Antibiotics) Assessment & Plan Assessment & Plan (1) Post traumatic stress disorder: Status: Acute Code(s): F43.10 - Post-traumatic stress disorder, unspecified Assessment and Plan: hypervigilant taking clonazepam and seroquel (2) Major depression, recurrent: Status: Acute Code(s): F33.9 - Major depressive disorder, recurrent, unspecified Assessment and Plan: reports best she did was on sertraline and seroquel and clonazepam on effexor now couldn't take sertraline any more TMS education (3) Drug overdose: Status: Acute Code(s): T50.901A - Poisoning by unspecified drugs, medicaments and biological substances, accidental (unintentional), initial encounter Assessment and Plan: reports having [facility] on seroquel prior to admit Greater than 50% of the session was spent on counseling and/or coordination of care
[2020-03-12 06:00] VITALS: BP 94/54; PULSE 65; RESP 16; TEMP 36.7
[2020-03-12] MEDS: cephALEXin 500 MG CAPSULE PO ×4 (08:48→20:45)
[2020-03-12] MEDS: Venlafaxine HCl ER 150 MG CAP.ER.24H 300 MG PO (08:49)
[2020-03-12] MEDS: clonazePAM 1 MG TABLET 0.5 MG PO ×2 (09:18→17:15)
[2020-03-12] MEDS: QUEtiapine Fumarate 50 MG TABLET PO ×2 (13:12→18:18)
[2020-03-12 13:17] VITALS: TEMP 36.2
[2020-03-12 16:36] VITALS: BP 118/61; PULSE 64; TEMP 36.4
[2020-03-12] MEDS: clonazePAM 1 MG TABLET PO (20:45)
[2020-03-12] MEDS: QUEtiapine Fumarate 50 MG TABLET 200 MG PO (20:45)
[2020-03-13 06:00] VITALS: BP 91/46; PULSE 58; RESP 16; TEMP 36.8
--- NOTE | 2020-03-13 06:38 | P.PNPSI_ITS ---
Subjective Subjective Reason For Visit: overdose Interim History: Mood better after PRN meds. Remains depressed. Wants her support systems in place. Looking for grief groups. Ct meds. Unable to do PHP as has no smartphone or computer. DC Fri Review of Systems Review of Systems Yes all other systems are reviewed and are negative Mental Status Exam Mental Status Exam Narrative: seems constantly annoyed, wearing levy Patient Appearance: Well Grooomed and Appropriate Patient Orientation: Person, Place, Time and Situation Level of Consciousness: Awake Patient Behavior: Appropriate Behavior Comments: irritable Mood Description: Depressed Affect Description: Depressed and Anxious Patient Cognition Impaired: No Ability to Follow Directions: Fair Speech Pattern: Clear Memory Description: Intact Diagnostics Vital Signs (24Hr): Vital Signs - 24 hr 03/12/20 13:17 03/12/20 16:36 03/13/20 06:00 Temperature 97.1 F 97.5 F 98.3 F Pulse Rate 64 58 Respiratory Rate 16 Blood Pressure 118/61 91/46 L Body Mass Index 52.7 Labs Results: 03/03/20 02:59 03/03/20 11:54 Medications Medications Current Medications Generic Name Dose Route Start Last Admin Trade Name Freq PRN Reason Stop Dose Admin Acetaminophen 650 mg 03/06/20 18:05 Acetaminophen 325 Mg Tablet PO Q6H PRN Headache/Pain Mild Scale (1-3) Albuterol Sulfate 2 puff 03/04/20 09:39 03/07/20 20:41 Albuterol Sulfate 90 Mcg 18 Gm Inhaler INHALE 2 puff Q4H PRN Administration Shortness Of Breath Clonazepam 1 mg 03/09/20 21:00 03/12/20 20:45 Clonazepam 1 Mg Tablet PO 1 mg BEDTIME ALICIA Administration Clonazepam 0.5 mg 03/10/20 11:50 03/12/20 17:15 Clonazepam 1 Mg Tablet PO 0.5 mg BID PRN Administration anxiety Hydroxyzine HCl 25 mg 03/06/20 18:05 03/09/20 19:00 Hydroxyzine Hcl 25 Mg Tablet PO 25 mg BEDTIME PRN Administration Anxiety Ibuprofen 600 mg 03/11/20 20:52 03/11/20 22:44 Ibuprofen 600 Mg Tablet PO 600 mg Q6H PRN Administration Pain, Moderate (Pain Scale 4-6 Methadone HCl 10 mg 03/05/20 09:00 03/12/20 08:50 Methadone Hcl 1 Mg/0.1 Ml Oral.Conc PO 10 mg DAILY ALICIA Administration Naloxone HCl 4 mg 03/10/20 09:24 Naloxone Hcl Nasal 4 Mg [place] NOSTRILALT ONCE PRN opioid overdose Nicotine Polacrilex 2 mg 03/06/20 18:05 Nicotine Polacrilex 2 Mg [place] BUCCAL Q2H PRN Nicotine Cravings Quetiapine Fumarate 200 mg 03/10/20 21:00 03/12/20 20:45 Quetiapine Fumarate 50 Mg Tablet PO 200 mg BEDTIME ALICIA Administration Quetiapine Fumarate 50 mg 03/10/20 11:50 03/12/20 18:18 Quetiapine Fumarate 50 Mg Tablet PO 50 mg TID PRN Administration Anxiety Venlafaxine HCl 300 mg 03/12/20 09:00 03/12/20 08:49 Venlafaxine Hcl Er 150 Mg Cap.Er.24h PO 300 mg DAILY ALICAI Administration Zolpidem Tartrate 5 mg 03/08/20 22:19 Zolpidem Tartrate 5 Mg Tablet PO BEDTIME PRN Insomnia Allergies Allergies Allergy/AdvReac Type Severity Reaction Status Date / Time trazodone [TRAZODONE] Allergy Severe SHORTNESS Verified 03/03/20 08:18 OF BREATH, GASPING FOR AIR , SOB aspirin [ASPIRIN] Allergy Unknown STOMACH Verified 03/03/20 08:18 UPSET, Nausea, nausa ciprofloxacin [Cipro] Allergy Unknown Rash Verified 10/02/15 00:00 promethazine [Phenergan] Allergy Unknown Hives Verified 10/02/15 00:00 Sulfa (Sulfonamide Allergy Unknown Unknown Verified 03/03/20 08:18 Antibiotics) Assessment & Plan Assessment & Plan (1) Post traumatic stress disorder: Status: Acute Code(s): F43.10 - Post-traumatic stress disorder, unspecified Assessment and Plan: hypervigilant taking clonazepam and seroquel (2) Major depression, recurrent: Status: Acute Code(s): F33.9 - Major depressive disorder, recurrent, unspecified Assessment and Plan: on effexor now (3) Drug overdose: Status: Acute Code(s): T50.901A - Poisoning by unspecified drugs, medicaments and biological substances, accidental (unintentional), initial encounter Assessment and Plan: Safety plan discussed. Coordinate community support Greater than 50% of the session was spent on counseling and/or coordination of care
[2020-03-13] MEDS: Venlafaxine HCl ER 150 MG CAP.ER.24H 300 MG PO (08:43)
[2020-03-13] MEDS: clonazePAM 1 MG TABLET 0.5 MG PO ×2 (09:42→18:23)
[2020-03-13] MEDS: QUEtiapine Fumarate 50 MG TABLET PO (13:42)
[2020-03-13 16:28] VITALS: BP 101/60; PULSE 61; TEMP 36.7
[2020-03-13] MEDS: clonazePAM 1 MG TABLET PO (20:18)
[2020-03-13] MEDS: QUEtiapine Fumarate 50 MG TABLET 200 MG PO (20:18)
[2020-03-14 06:00] VITALS: BP 108/59; PULSE 67; TEMP 36.6
[2020-03-14 06:42] VITALS: BP 108/59; PULSE 67; RESP 16; TEMP 36.6; O2SAT 95
[2020-03-14 07:00] VITALS: BMI 27.0
--- NOTE | 2020-03-14 07:31 | HO.PSYCHPN ---
Subjective Subjective Date of Service: 03/14/20 Reason For Visit: overdose Subjective Notes: Short Warning Interim History: Mood better after PRN meds. Remains depressed. Wants her support systems in place. Looking for grief groups. Ct meds. Unable to do PHP as has no smartphone or computer. DC Fri Medication Compliance: No Side effects from medications: No Review of Systems Review of Systems Yes all other systems are reviewed and are negative Mental Status Exam Mental Status Exam Narrative: seems constantly annoyed, wearing levy Patient Appearance: Well Grooomed and Appropriate Patient Orientation: Person, Place, Time and Situation Level of Consciousness: Awake Patient Behavior: Appropriate Behavior Comments: irritable Mood Description: Depressed Affect Description: Depressed and Anxious Patient Cognition Impaired: No Ability to Follow Directions: Fair Speech Pattern: Clear Memory Description: Intact Diagnostics Vital Signs (24Hr): Vital Signs - 24 hr 03/13/20 16:28 03/14/20 06:42 Temperature 98.0 F 97.9 F Pulse Rate 61 67 Respiratory Rate 16 Blood Pressure 101/60 108/59 L Pulse Oximetry 95 Body Mass Index 52.7 Labs Results: 03/03/20 02:59 03/03/20 11:54 Medications Medications Current Medications Generic Name Dose Route Start Last Admin Trade Name Freq PRN Reason Stop Dose Admin Acetaminophen 650 mg 03/06/20 18:05 Acetaminophen 325 Mg Tablet PO Q6H PRN Headache/Pain Mild Scale (1-3) Albuterol Sulfate 2 puff 03/04/20 09:39 03/07/20 20:41 Albuterol Sulfate 90 Mcg 18 Gm Inhaler INHALE 2 puff Q4H PRN Administration Shortness Of Breath Clonazepam 1 mg 03/09/20 21:00 03/13/20 20:18 Clonazepam 1 Mg Tablet PO 1 mg BEDTIME ALICIA Administration Clonazepam 0.5 mg 03/10/20 11:50 03/13/20 18:23 Clonazepam 1 Mg Tablet PO 0.5 mg BID PRN Administration anxiety Hydroxyzine HCl 25 mg 03/06/20 18:05 03/09/20 19:00 Hydroxyzine Hcl 25 Mg Tablet PO 25 mg BEDTIME PRN Administration Anxiety Ibuprofen 600 mg 03/11/20 20:52 03/11/20 22:44 Ibuprofen 600 Mg Tablet PO 600 mg Q6H PRN Administration Pain, Moderate (Pain Scale 4-6 Methadone HCl 10 mg 03/05/20 09:00 03/13/20 08:45 Methadone Hcl 1 Mg/0.1 Ml Oral.Conc PO 10 mg DAILY ALICIA Administration Naloxone HCl 4 mg 03/10/20 09:24 Naloxone Hcl Nasal 4 Mg [place] NOSTRILALT ONCE PRN opioid overdose Nicotine Polacrilex 2 mg 03/06/20 18:05 Nicotine Polacrilex 2 Mg Gum BUCCAL Q2H PRN Nicotine Cravings Quetiapine Fumarate 200 mg 03/10/20 21:00 03/13/20 20:18 Quetiapine Fumarate 50 Mg Tablet PO 200 mg BEDTIME ALICIA Administration Quetiapine Fumarate 50 mg 03/10/20 11:50 03/13/20 13:42 Quetiapine Fumarate 50 Mg Tablet PO 50 mg TID PRN Administration Anxiety Venlafaxine HCl 300 mg 03/12/20 09:00 03/13/20 08:43 Venlafaxine Hcl Er 150 Mg Cap.Er.24h PO 300 mg DAILY ALICIA Administration Zolpidem Tartrate 5 mg 03/13/20 22:18 Zolpidem Tartrate 5 Mg Tablet PO BEDTIME PRN Insomnia Allergies Allergies Allergy/AdvReac Type Severity Reaction Status Date / Time trazodone [TRAZODONE] Allergy Severe SHORTNESS Verified 03/03/20 08:18 OF BREATH, GASPING FOR AIR , SOB aspirin [ASPIRIN] Allergy Unknown STOMACH Verified 03/03/20 08:18 UPSET, Nausea, nausa ciprofloxacin [Cipro] Allergy Unknown Rash Verified 10/02/15 00:00 promethazine [Phenergan] Allergy Unknown Hives Verified 10/02/15 00:00 Sulfa (Sulfonamide Allergy Unknown Unknown Verified 03/03/20 08:18 Antibiotics) Assessment & Plan Assessment & Plan (1) Post traumatic stress disorder: Status: Acute Code(s): F43.10 - Post-traumatic stress disorder, unspecified Assessment and Plan: hypervigilant taking clonazepam and seroquel (2) Major depression, recurrent: Status: Acute Code(s): F33.9 - Major depressive disorder, recurrent, unspecified Assessment and Plan: on effexor now (3) Drug overdose: Status: Acute Code(s): T50.901A - Poisoning by unspecified drugs, medicaments and biological substances, accidental (unintentional), initial encounter Assessment and Plan: Safety plan discussed. Coordinate community support Greater than 50% of the session was spent on counseling and/or coordination of care
[2020-03-14] MEDS: Venlafaxine HCl ER 150 MG CAP.ER.24H 300 MG PO (08:20)
[2020-03-14] MEDS: clonazePAM 1 MG TABLET 0.5 MG PO ×2 (08:22→17:21)
[2020-03-14] MEDS: QUEtiapine Fumarate 50 MG TABLET PO (13:25)
[2020-03-14 17:00] VITALS: BP 106/65; PULSE 77; TEMP 36.9
[2020-03-14] MEDS: QUEtiapine Fumarate 50 MG TABLET 200 MG PO (20:23)
[2020-03-14] MEDS: clonazePAM 1 MG TABLET PO (20:26)
[2020-03-14] MEDS: Zolpidem Tartrate 5 MG TABLET PO (20:26)
[2020-03-15 06:00] VITALS: BP 108/55; PULSE 73; TEMP 36.8
[2020-03-15] MEDS: clonazePAM 1 MG TABLET 0.5 MG PO ×2 (06:10→11:23)
[2020-03-15] MEDS: Venlafaxine HCl ER 150 MG CAP.ER.24H 300 MG PO (08:32)
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
== END 2020-03-15 14:05 | disposition home or self-care (01) | DRG 751 ==
LOC: HO.ED 14:54 → HO.PM5 03-06 18:48
PROVIDERS: Emergency Medicine; Physician Assistant; Admitting Provider Psychiatry & Neurology Psychiatry; Emergency Provider Emergency Medicine Emergency Medical Services; Visit Provider Psychiatry & Neurology Psychiatry
DX: F33.9 Major depressive disorder, recurrent, unspecified (principal); R45.851 Suicidal ideations; F11.20 Opioid dependence, uncomplicated; F14.20 Cocaine dependence, uncomplicated; F43.10 Post-traumatic stress disorder, unspecified; F17.210 Nicotine dependence, cigarettes, uncomplicated; Z71.6 Tobacco abuse counseling; Z20.828 Contact with and (suspected) exposure to other viral communicable diseases; Z91.5 Personal history of self-harm; Z88.2 Allergy status to sulfonamides; Z88.6 Allergy status to analgesic agent; Z79.899 Other long term (current) drug therapy
CPT/HCPCS: 36415; 80048; 80053; 80307; 80320; 85025; 87635; 93005; 96360; 96361; 99223; 99232; 99239; 99285; G0480

== ENCOUNTER 2020-04-10 13:06 | Inpatient (IN) | payer OTHER, SELFPAY ==
[2020-04-10] VITALS (8 sets, daily range): BP systolic 103–121; BP diastolic 62–72; PULSE 67–108; RESP 14–24; TEMP 36.7–37.5; O2SAT 96–100; BMI 24.2
--- NOTE | 2020-04-10 13:14 | ECG_ITS ---
Test Reason : ABNORMAL EKG EMS Blood Pressure : / mmHG Vent. Rate : 092 BPM Atrial Rate : 092 BPM P-R Int : 138 ms QRS Dur : 084 ms QT Int : 390 ms P-R-T Axes : 048 036 040 degrees QTc Int : 482 ms Normal sinus rhythm Prolonged QT Abnormal ECG When compared to the previous EKG of QT has lengthened Referred By: Alisson Ernst Electronically Signed By:CHADWICK CARIAS MD
--- NOTE | 2020-04-10 13:21 | ED.SKABFB ---
HPI - Skin/Abscess/Foreign Bdy General Chief complaint: Skin/Abscess/Foreign Body Stated complaint: cellulitis Time Seen by Provider: 04/10/20 13:14 Source: EMS Mode of arrival: EMS Limitations: no limitations History of Present Illness HPI narrative: 50-year-old female with a past medical history of PTSD, substance abuse here with left leg redness, swelling and pain. The patient reports she has been injecting cocaine into her left thigh to the same spot and yesterday noticed redness and swelling and pain to the site. No fevers or chills. No difficulty moving the extremity. Patient does have a she was on methadone till about 10 days ago. Since then she has been intermittently using cocaine to help with withdrawal symptoms. She tells me she has had some intermittent diarrhea and vomiting which she thought were secondary to withdrawal symptoms. MD complaint: abscess/boil Onset (ago): day(s) Tetanus up to date: yes Location: LLE Severity: moderate Quality: burning Pain Consistency: constant Relieving factors: none Exacerbating factors: none Context: none Associated symptoms: denies other symptoms Treatments prior to arrival: none Related Data Previous Rx's Medication Instructions Recorded albuterol sulfate [Ventolin HFA] 2 puff INHALATION Q4H PRN 30 Days 03/15/20 #2 g clonazepam 0.5 mg PO BID PRN 30 Days #60 tab 03/15/20 methadone [Methadose] 10 mg PO DAILY 1 Days #1 ml 03/15/20 naloxone [Narcan] 4 mg INTRANASAL (ALT) ONCE PRN 1 03/15/20 Days #1 ea quetiapine 50 mg PO TID PRN 30 Days #90 tab 03/15/20 quetiapine [Seroquel] 200 mg PO BEDTIME 30 Days #30 tab 03/15/20 venlafaxine 300 mg PO DAILY 30 Days #60 cap 03/15/20 zolpidem [Ambien] 10 mg PO BEDTIME PRN 30 Days #30 03/15/20 tab Allergies Allergy/AdvReac Type Severity Reaction Status Date / Time trazodone [TRAZODONE] Allergy Severe SHORTNESS Verified 04/10/20 13:21 OF BREATH, GASPING FOR AIR , SOB aspirin [ASPIRIN] Allergy Unknown STOMACH Verified 04/10/20 13:21 UPSET, Nausea, nausa ciprofloxacin [Cipro] Allergy Unknown Rash Verified 04/10/20 13:21 promethazine [Phenergan] Allergy Unknown Hives Verified 04/10/20 13:21 Sulfa (Sulfonamide Allergy Unknown Unknown Verified 04/10/20 13:21 Antibiotics) Review of Systems Review of Systems: Yes all other systems are reviewed and are negative Constitutional: Constitutional: Reports no additional constitutional complaints, Denies body ache(s), Denies chills, Denies fever(s), Denies headache(s) and Denies weakness Eyes: Eyes: Reports no additional eye complaints and Denies change in vision ENT: Reports system reviewed and no additional complaints, except as documented, Denies dizziness, Denies headache(s), Denies nasal congestion, Denies nasal discharge and Denies neck pain Cardiovascular: Cardiovascular: Reports no additional cardiovascular complaints, Denies chest pain, Denies leg edema and Denies dyspnea Respiratory: Respiratory: Reports no additional respiratory complaints, Denies cough and Denies dyspnea Gastrointestinal: Gastrointestinal: Reports no additional gastrointestinal complaints, Denies abdominal pain, Reports diarrhea, Denies nausea and Reports vomiting Genitourinary: Genitourinary: Reports no additional female genitourinary complaints and Denies urinary incontinence Musculoskeletal: Musculoskeletal: Reports no additional musculoskeletal complaints, Denies back pain, Denies arthralgias, Denies joint swelling, Denies neck pain, Denies numbness and Denies tingling Integumentary/Breasts: Skin/Breast: Reports system reviewed and no additional complaints, except as docu, Reports furuncle and Denies rash Neurologic: Reports system reviewed and no additional complaints, except as documented, Denies Abnormal speech present, Denies dizziness, Denies headache(s), Denies numbness, Denies tingling and Denies weakness [facility] Past Medical History Attestation statement: The following information was validated with the patient. Source: old records reviewed Medical History (Updated 04/10/20 @ 16:56 by Alisson Ernst NP) Asthma Cocaine use disorder, moderate, dependence Major depression, recurrent Opioid use disorder, severe, dependence Post traumatic stress disorder Social History Social History Household Members: None Housing: Apartment 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: current Alcohol type: hard liquor Smoking Status: Current every day smoker Tobacco Type: Cigarette Packs Per Day: 1 Cigarettes Per Day: 20.0 Years Smoked: whole life Second Hand Smoke Exposure: No Substance Use Type: Crack/Cocaine Advance Directives: No Advance Directives Information Provided: No service: No Sexual orientation: Straight/Heterosexual Physical Exam Vital Signs: Vital Signs: Last Vital Signs Temp 99.1 F 04/10/20 15:34 Pulse 85 04/10/20 15:31 Resp 15 04/10/20 15:31 BP 114/70 04/10/20 15:31 Pulse Ox 96 04/10/20 15:31 Body Mass Index 24.2 Const: General: cooperative, healthy appearing, comfortable and no acute distress Orientation/consciousness: patient oriented x3 Limitations: no limitations HENMT: Head: Yes normal to inspection Ears: hearing grossly normal bilaterally General nose exam: Normal external nose present Face and sinus: Yes normal facial exam Mouth: Normal oral and palatal mucosa present Throat: Yes posterior oropharynx normal Eyes: General: appearance normal, both eyes and all related structures Pupils: Equal, round and reactive pupils present Neck: Neck: Yes normal visual inspection Chest: Chest palpation & inspection: normal inspection of the chest Resp: Effort & Inspection: normal respiratory effort Auscultation: clear to auscultation bilaterally Cardio: Rate: regular rate Rhythm: regular rhythm Peripheral pulses: Peripheral pulses 2+ throughout GI: Inspection: Yes normal to inspection Palpation (GI): Soft to palpation and nontender Auscultation: normal bowel sounds Back/Spine/Pelvis: Thoracic/Lumbar Spine: thoracic and lumbar spine normal to inspection Skin: Other: To the left medial distal thigh there is a circular area of erythema, warmth, swelling, induration and tenderness. There are track larson noted around the site. There is no fluctuance. The patient is able to extend and flex the knee with difficulty. She does not report any pain outside of the area. The compartment is soft Neuro: General: patient oriented x3, no focal motor deficits and normal sensation to monofilament Cranial nerves: Yes Equal, round and reactive pupils present Cognition (Neuro): normal cognition Speech: No Abnormal speech present Gait exam (Neuro): Normal gait present Motor exam (neuro): 5/5 motor strength present throughout Extrem: General: Yes normal to inspection Course Course Course Narrative: 50-year-old female with a past medical history of IV cocaine use here with left lower extremity swelling, redness, tenderness, warmth and induration since yesterday. Patient tells me she use IV drugs at this site. She denies any fevers or chills. There does not appear to be any palpable abscess or fluctuance. Also complaining of some vomiting and diarrhea which patient contributes to withdrawal symptoms secondary to stopping methadone. Will check labs, UA, urine , DELACRUZ. EMS reports some EKG changes but I do not have this EKG available to review. 1600- EKG unremarkable. Nursing was unable to obtain IV access and labs show a right EJ was placed. Pending labs. 1700-Labs reviewed. Patient was seen by Dr Mao at the bedside. Plan for CT w/contrast to eval for underlying abscess vs gas. Sign out to Rebekah MONTIEL pending above. Procedures EJ/Peripheral Line Neck R: Time Out Performed: No Skin Cleansed in Sterile Fashion: Yes Size (gauge): 20 IV Secured and Dressing Applied: Yes Patient Tolerated Procedure: well MDM - Skin/Abscess/Foreign Bdy Medical Records Attestation: I reviewed the patient's medical records. Lab Data Attestation: I reviewed the patient's lab results. Result diagrams: 04/10/20 13:55 04/10/20 15:49 Labs: Lab Results 04/10/20 04/10/20 04/10/20 Range/Units 13:55 13:55 13:55 WBC 11.9 H (4.8-10.8) X10*3/uL RBC 4.40 (4.20-5.50) X10*6/uL Hgb 12.6 (12.0-16.0) g/dl Hct 37.7 (37-47) % MCV 85.7 (80-98) fL MCH 28.6 (27.0-33.0) pg MCHC 33.4 (31.0-35.0) g/dl RDW 16.2 H (11.0-16.0) % Plt Count 213 (160-400) X10*3/uL MPV 11.3 (9.4-12.3) fL Immature Gran % (Auto) 0.4 (0.0-0.4) % Neut % (Auto) 80.5 H (45-73) % Lymph % (Auto) 7.4 L (20-40) % [place] % (Auto) 11.6 H (2-11) % Eos % (Auto) 0.0 (0-4) % Baso % (Auto) 0.1 (0-2) % Lymph # (Auto) 0.9 L (1.2-4.9) X10*3/uL [place] # (Auto) 1.4 H (0.1-1.2) X10*3/uL Eos # (Auto) 0.0 (0.0-0.4) X10*3/uL Baso # (Auto) 0.0 (0.0-0.2) X10*3/uL Abs Immat Gran (auto) 0.05 H (0.00-0.03) X10*3/uL Absolute Neuts (auto) 9.6 H (2.0-8.3) X10*3/uL Absolute Nucleated RBC 0.000 (0.0-0.012) X10*3/uL Nucleated RBC % (auto) 0.0 (0.0-0.2) /100WBC PT 13.5 H (10.8-13.0) SEC INR 1.1 (0.9-1.1) Sodium Cancelled Potassium Cancelled Chloride Cancelled Carbon Dioxide Cancelled Anion Gap Cancelled BUN Cancelled Creatinine Cancelled Estim Creat Clear Calc Cancelled Estimated GFR Cancelled Random Glucose Cancelled Lactic Acid (0.5-2.0) mmol/L Calcium Cancelled Magnesium Cancelled Total Bilirubin Cancelled Direct Bilirubin Cancelled AST Cancelled ALT Cancelled Alkaline Phosphatase Cancelled Total Protein Cancelled Albumin Cancelled 04/10/20 04/10/20 Range/Units 13:55 15:49 WBC (4.8-10.8) X10*3/uL RBC (4.20-5.50) X10*6/uL Hgb (12.0-16.0) g/dl Hct (37-47) % MCV (80-98) fL MCH (27.0-33.0) pg MCHC (31.0-35.0) g/dl RDW (11.0-16.0) % Plt Count (160-400) X10*3/uL MPV (9.4-12.3) fL Immature Gran % (Auto) (0.0-0.4) % Neut % (Auto) (45-73) % Lymph % (Auto) (20-40) % [place] % (Auto) (2-11) % Eos % (Auto) (0-4) % Baso % (Auto) (0-2) % Lymph # (Auto) (1.2-4.9) X10*3/uL [place] # (Auto) (0.1-1.2) X10*3/uL Eos # (Auto) (0.0-0.4) X10*3/uL Baso # (Auto) (0.0-0.2) X10*3/uL Abs Immat Gran (auto) (0.00-0.03) X10*3/uL Absolute Neuts (auto) (2.0-8.3) X10*3/uL Absolute Nucleated RBC (0.0-0.012) X10*3/uL Nucleated RBC % (auto) (0.0-0.2) /100WBC PT (10.8-13.0) SEC INR (0.9-1.1) Sodium 139 Potassium 3.0 L Chloride 106 Carbon Dioxide 22 Anion Gap 14 BUN 14 Creatinine 0.70 Estim Creat Clear Calc 83.0 Estimated GFR > 60 Random Glucose 80 Lactic Acid 0.9 (0.5-2.0) mmol/L Calcium 8.5 Magnesium 2.2 Total Bilirubin 0.7 Direct Bilirubin 0.2 AST 12 ALT 10 Alkaline Phosphatase 90 Total Protein 7.0 Albumin 4.0 ECG Data ECG interpretation date: 04/10/20 ECG interpretation time: 13:30 Interpretation: normal sinus rhythm, normal [place], normal QRS, prolonged QT 482. Discharge Plan Discharge Clinical Impression: Cellulitis Qualifiers: Site of cellulitis: extremity Site of cellulitis of extremity: lower extremity Laterality: left Qualified Code(s): L03.116 - Cellulitis of left lower limb Prescriptions: No Action methadone [Methadose] 10 mg/mL Concentrate 10 mg PO DAILY 1 Days Qty: 1 RF: 0 albuterol sulfate [Ventolin HFA] 90 mcg/actuation Hfa Aerosol Inhaler 2 puff inhalation Q4H PRN (Reason: Shortness Of Breath) 30 Days Qty: 2 RF: 0 quetiapine [Seroquel] 200 mg tablet 200 mg PO BEDTIME 30 Days Qty: 30 RF: 0 clonazepam 1 mg Tablet 0.5 mg PO BID PRN (Reason: anxiety) 30 Days Qty: 60 RF: 0 venlafaxine 150 mg Capsule,Extended Release 24hr 300 mg PO DAILY 30 Days Qty: 60 RF: 0 quetiapine 50 mg Tablet 50 mg PO TID PRN (Reason: Anxiety) 30 Days Qty: 90 RF: 0 Narcan 4 mg/actuation [place],Non-Aerosol 4 mg intranasal (ALT) ONCE PRN (Reason: opioid overdose) 1 Days Qty: 1 RF: 0 zolpidem [Ambien] 10 mg Tablet 10 mg PO BEDTIME PRN (Reason: Insomnia) 30 Days Qty: 30 RF: 0
[2020-04-10 14:04] LABS: Basophils Percent Auto 0.1 % (0-2); Hematocrit 37.7 % (37-47); Hemoglobin 12.6 g/dl (12.0-16.0); Imm Gran Abs Auto 0.05 X10*3/uL (0.00-0.03); Imm Gran Pct Auto 0.4 % (0.0-0.4); Lymphocytes Absolute Auto 0.9 X10*3/uL (1.2-4.9); Lymphocytes Percent Auto 7.4 % (20-40); MANUAL DIFF FLAG NO; Mean Corpuscular HGB Conc 33.4 g/dl (31.0-35.0); Mean Corpuscular Hemoglobin 28.6 pg (27.0-33.0); Mean Corpuscular Volume 85.7 fL (80-98); Mean Platelet Volume 11.3 fL (9.4-12.3); Monocytes Absolute Auto 1.4 X10*3/uL (0.1-1.2); Monocytes Percent Auto 11.6 % (2-11); Neutrophils Absolute Auto 9.6 X10*3/uL (2.0-8.3); Neutrophils Percent Auto 80.5 % (45-73); Platelet Count 213 X10*3/uL (160-400); Red Cell Distribution Width 16.2 % (11.0-16.0); White Blood Count 11.9 X10*3/uL (4.8-10.8)
[2020-04-10] MEDS: Morphine Sulfate 4 MG/ML CARTRIDGE IVPUSH ×2 (14:06→18:43)
[2020-04-10] MEDS: Piperacillin Sodium/Tazobactam 3.375 GM in 0.9 % Sodium Chloride 50 ML IV ×2 (14:06→22:44)
[2020-04-10] MEDS: 0.9 % Sodium Chloride 1,000 ML 999 ML IV (14:07)
[2020-04-10 14:12] LABS: INTERNATIONAL NORM RATIO 1.1 (0.9-1.1); Prothrombin Time 13.5 SEC (10.8-13.0)
[2020-04-10] MEDS: ondansetron HCL 4 MG/2 ML VIAL IVPUSH (14:13)
[2020-04-10 14:22] LABS: Lactic Acid 0.9 mmol/L (0.5-2.0)
--- NOTE | 2020-04-10 14:54 | PC.NURSE ---
PT TRIAGED C/O LLE PAIN, CELLULITIC LOOKING AREA ON POSTERIOR ASPECT. IRREGULARLY SHAPED, WARM, RED, RAISED X 2 DAYS. REPORTS INJECTING COCAINE IN THIS AREA. RECENTLY WEANED SELF OFF 7MG METHADONE, DENIES WD SXS AT THIS TIME. DIFFICULT STICK, PHYSICAL EDUCATION SPECIALIST KAIDEN PLACED 20G IN IN R EJ. PT A&OX3, SPEAKING IN CLEAR FULL SENTENCES. RESP EVEN AND NONLABOURED.
[2020-04-10] MEDS: Ketorolac Tromethamine 30 MG/ML VIAL IVPUSH (15:30)
[2020-04-10 16:38] LABS: Alanine Aminotransferase 10 U/L (0-31); Alkaline Phosphatase 90 U/L (39-117); Anion Gap 14 (12-20); Aspartate Amino Transferase 12 U/L (5-31); Bilirubin Direct 0.2 mg/dL (0.0-0.5); Bilirubin Total 0.7 mg/dL (0.0-1.0); Blood Urea Nitrogen 14 mg/dL (9-16); Calcium 8.5 mg/dL (8.4-10.2); Carbon Dioxide 22 mmol/L (22-29); Chloride 106 mmol/L (96-108); Estimated Glomerular Filt Rate > 60; Glucose Random 80 mg/dL (60-115); Magnesium 2.2 mg/dL (1.6-2.6); Sodium 139 mmol/L (135-145)
--- NOTE | 2020-04-10 16:45 | CT_ITS ---
EXAMINATION: CT FEMUR WITH CONTRAST, LEFT CLINICAL INFORMATION: Swelling and redness of distal femur. Concern for abscess or gas in the soft tissues. COMPARISON: None TECHNIQUE: Axial images obtained through the femur postcontrast. 85 mL Omnipaque 350 injected. Coronal and sagittal reformatted images are performed at the CT scanner. This CT examination was performed using dose optimization techniques as appropriate, variously including the following: *Automated exposure control. *Adjustment of mA and/or kV according to patient size (this includes techniques or standardized protocols for targeted exams where dose is matched to indication/reason for exam; i.e. extremities or head). *Use of iterative reconstruction technique. DLP: 337 mGy-cm FINDINGS: In the subcutaneous tissues of the distal medial left upper leg near the level of the metadiaphysis of the femur there is a small air collection in the subcutaneous tissue with surrounding reticulation and edema, fluid, in the subcutaneous tissue. There is no defined abscess or drainable fluid collection, however. There is no radiopaque foreign body. There is no involvement of the deeper soft tissues of muscle or intermuscular fat. There is a small popliteal cyst posterior to the knee. There is no osseous abnormality. The hip, femur and knee joint is unremarkable. CT/CT femur LT w con IMPRESSION: Small focus of edema in the subcutaneous tissue at the distal medial left thigh with a small air droplet in the area of the edema. No radiopaque foreign body.
--- NOTE | 2020-04-10 17:00 | PC.NURSE ---
pt to ct scan
[2020-04-10] MEDS: Clindamycin Phosphate/D5W 600 MG/50 ML PIGGYBACK 100 MG IV (17:14)
[2020-04-10 18:10] LABS: Glucose Urine UA NEG (NEG); Leukocyte Esterase Urine NEG (NEG); Nitrite Urine NEG (NEG); PH 5.5 (5.0-8.0); Specific Gravity - Urine >= 1.030 (1.005-1.025); Urine Blood 2+ (NEG); Urine Ketones 40 MG/DL (NEG); Urine Protein TRACE MG/DL (NEG-TRACE)
[2020-04-10 18:12] LABS: Appearance Urine HAZY; Color Urine YELLOW
[2020-04-10 18:13] LABS: UPreg QC Valid YES; Urine Pregnancy NEGATIVE (NEGATIVE)
[2020-04-10] MEDS: iohexoL 350 MG/ML 100 ML INFUS..BTL IV (18:13)
[2020-04-10 18:18] LABS: WBC Urine 0 /HPF (0-4)
[2020-04-10 18:19] LABS: Mucus Urine 1+ /LPF; Squamous Epithelial Cell Urine TRACE /LPF
[2020-04-10 18:30] LABS: Amphetamine Screen Urine Not Detected (Not Detect); Barbiturates, Urine Not Detected (Not Detect); Benzodiazepines Screen Urine POSITIVE (Not Detect); Cannabinoid Screen Urine Not Detected (Not Detect); Cocaine Screen Urine POSITIVE (Not Detect); Opiate Screen Urine POSITIVE (Not Detect); Phencyclidine Screen Urine Not Detected (Not Detect)
[2020-04-10] MEDS: oxyCODONE HCl Immed Release 5 MG TABLET PO (18:43)
[2020-04-10 20:28] LABS: COVID-19 Test Negative (Negative); IDNOW Serial# 9DD0AD1C
--- NOTE | 2020-04-10 22:15 | P.HPHOSP_ITS ---
History of Present Illness Date of Service: 04/10/20 Chief Complaint: left leg pain 85 y/o female with PMHX of underlying psychotic disorder and IV drug abuse who presented from home due to Left leg pain. Patient is a poor historian. Reports that has been injecting cocaine directly to her skin in the left leg and noticed several days ago that her distal part of the thigh became swollen and had a surrounded redness. Patient reports that for the past few days has been present but now has noticed that the erythema has decreased compared to when it started. Patient decided to come to the ED because noticed that eventhough the redness has been improving but the pain got worse. Patient denies any episodes of chest pain, SOB, nausea, vomiting, diarrhea or fever. On presentation to the ED patient was initially at some point tachypneic but rest of the vitals remained stable, initial blood work showed leukocytosis of 11.9 with left shift, K of 3.0, Utox positive for opiates, benzos and cocaine. Patient was given a total of 1 liter NS, one dose of Zosyn and Clindamycin at 1 pm. KCL not supplemented. Decision for admission taken at 7 pm. Patient was seen and examined at the bedside, laying down in bed in no acute distress. ROS as above otherwise negative. Physical exam showing distal left thigh swelling with surrounding erythema of approximately 5 cm, hot to touch and tender, hard but no palpable fluctuation or crepitate. CT reviewed which showed edema with small air droplet. General Surgery Dr Crump was contacted per ED who reports that air droplet might be secondary to injections and recommended patient to be admitted to medicine for IV antbx and will follow up in am. PMHX: IVDA, Psychotic disorder, Insomnia PSx: none Toxic habits: IVDA, no hx of alcohol abuse or smoking Review of Systems Constitutional: Constitutional: Denies headache(s) and Denies weakness ENT: Denies dizziness and Denies headache(s) Musculoskeletal: Musculoskeletal: Reports other (left leg pain, swel ling/erythema) Neurologic: Reports system reviewed and no additional complaints, except as documented, Denies dizziness, Denies headache(s) and Denies weakness PMFSH Medical History Asthma Cocaine use disorder, moderate, dependence Major depression, recurrent Opioid use disorder, severe, dependence Post traumatic stress disorder Functional capacity: independent ambulation Social History Household Members: None Housing: Apartment 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: current 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 frequency: does not drink Alcohol type: hard liquor Smoking Status: Current every day smoker Tobacco Type: Cigarette Packs Per Day: 1 Cigarettes Per Day: 20.0 Years Smoked: whole life Second Hand Smoke Exposure: No Substance Use Type: IV Drugs Substance Use Frequency: Chronic Longstanding Last Used Substance: Days (ago) Advance Directives: No Advance Directives Information Provided: No service: No Sexual orientation: Straight/Heterosexual Meds Allergies Allergy/AdvReac Type Severity Reaction Status Date / Time trazodone [TRAZODONE] Allergy Severe SHORTNESS Verified 04/10/20 13:21 OF BREATH, GASPING FOR AIR , SOB aspirin [ASPIRIN] Allergy Unknown STOMACH Verified 04/10/20 13:21 UPSET, Nausea, nausa ciprofloxacin [Cipro] Allergy Unknown Rash Verified 04/10/20 13:21 promethazine [Phenergan] Allergy Unknown Hives Verified 04/10/20 13:21 Sulfa (Sulfonamide Allergy Unknown Unknown Verified 04/10/20 13:21 Antibiotics) Physical Exam Vital Signs and Narrative: Vital Signs: Last Vital Signs Temp 98.1 F 04/10/20 22:05 Pulse 67 04/10/20 22:05 Resp 20 04/10/20 22:05 BP 103/62 04/10/20 22:05 Pulse Ox 99 04/10/20 22:05 Body Mass Index 24.2 Const: General: cooperative, comfortable and no acute distress Orientation/consciousness: oriented to person, oriented to place and oriented to time HENMT: Head: Yes normal to inspection Eyes: General: appearance normal, both eyes and all related structures Neck: Yes normal visual inspection Chest: Chest palpation & inspection: normal inspection of the chest Resp: Effort & Inspection: normal respiratory effort Auscultation: clear to auscultation bilaterally Cardio: Jugular venous distension: no JVD Rate: regular rate Rhythm: regular rhythm Heart sounds: S1 normal heart sound present and S2 normal heart sound present GI: Inspection: Yes normal to inspection Skin: General skin exam: other (distal left thigh swelling with surrounding er ytema, 5 cm diameter approxim) Neuro: General: oriented to person, oriented to place and oriented to time Cognition (Neuro): normal cognition Results Labs CBC and Chem 7: 04/10/20 13:55 04/10/20 15:49 Labs: Laboratory Results - last 24 hr 04/10/20 04/10/20 04/10/20 13:55 13:55 13:55 MCV 85.7 MCH 28.6 MCHC 33.4 RDW 16.2 H Plt Count 213 MPV 11.3 Immature Gran % (Auto) 0.4 Neut % (Auto) 80.5 H Lymph % (Auto) 7.4 L [place] % (Auto) 11.6 H Eos % (Auto) 0.0 Baso % (Auto) 0.1 Lymph # (Auto) 0.9 L [place] # (Auto) 1.4 H Eos # (Auto) 0.0 Baso # (Auto) 0.0 Abs Immat Gran (auto) 0.05 H Absolute Neuts (auto) 9.6 H Absolute Nucleated RBC 0.000 Nucleated RBC % (auto) 0.0 PT 13.5 H INR 1.1 Anion Gap Cancelled Estim Creat Clear Calc Cancelled Estimated GFR Cancelled Random Glucose Cancelled Lactic Acid Calcium Cancelled Magnesium Cancelled Total Bilirubin Cancelled Direct Bilirubin Cancelled AST Cancelled ALT Cancelled Alkaline Phosphatase Cancelled Total Protein Cancelled Albumin Cancelled Urine Color Urine Appearance Urine pH Ur Specific [place] Urine Protein Urine Glucose (UA) Urine Ketones Urine Blood Urine Nitrite Ur Leukocyte Esterase Urine RBC Urine WBC Ur Squamous Epith Cells Urine Bacteria Urine Mucus Urine Test Urine Opiates Screen Ur Barbiturates Screen Ur Phencyclidine Scrn Ur Amphetamines Screen U Benzodiazepines Scrn Urine Cocaine Screen U Marijuana (THC) Screen COVID-19 (SAMANTHA) COVID-19 Clin Com 04/10/20 04/10/20 04/10/20 13:55 15:49 17:53 MCV MCH MCHC RDW Plt Count MPV Immature Gran % (Auto) Neut % (Auto) Lymph % (Auto) [place] % (Auto) Eos % (Auto) Baso % (Auto) Lymph # (Auto) [place] # (Auto) Eos # (Auto) Baso # (Auto) Abs Immat Gran (auto) Absolute Neuts (auto) Absolute Nucleated RBC Nucleated RBC % (auto) PT INR Anion Gap 14 Estim Creat Clear Calc 83.0 Estimated GFR > 60 Random Glucose 80 Lactic Acid 0.9 Calcium 8.5 Magnesium 2.2 Total Bilirubin 0.7 Direct Bilirubin 0.2 AST 12 ALT 10 Alkaline Phosphatase 90 Total Protein 7.0 Albumin 4.0 Urine Color YELLOW Urine Appearance HAZY Urine pH 5.5 Ur Specific [place] >= 1.030 H Urine Protein TRACE Urine Glucose (UA) NEG Urine Ketones 40 Urine Blood 2+ H Urine Nitrite NEG Ur Leukocyte Esterase NEG Urine RBC 5-9 H Urine WBC 0 Ur Squamous Epith Cells TRACE Urine Bacteria NONE Urine Mucus 1+ Urine Test NEGATIVE Urine Opiates Screen Ur Barbiturates Screen Ur Phencyclidine Scrn Ur Amphetamines Screen U Benzodiazepines Scrn Urine Cocaine Screen U Marijuana (THC) Screen COVID-19 (SAMANTHA) COVID-19 [employer] 04/10/20 04/10/20 17:53 19:54 MCV MCH MCHC RDW Plt Count MPV Immature Gran % (Auto) Neut % (Auto) Lymph % (Auto) [place] % (Auto) Eos % (Auto) Baso % (Auto) Lymph # (Auto) [place] # (Auto) Eos # (Auto) Baso # (Auto) Abs Immat Gran (auto) Absolute Neuts (auto) Absolute Nucleated RBC Nucleated RBC % (auto) PT INR Anion Gap Estim Creat Clear Calc Estimated GFR Random Glucose Lactic Acid Calcium Magnesium Total Bilirubin Direct Bilirubin AST ALT Alkaline Phosphatase Total Protein Albumin Urine Color Urine Appearance Urine pH Ur Specific [place] Urine Protein Urine Glucose (UA) Urine Ketones Urine Blood Urine Nitrite Ur Leukocyte Esterase Urine RBC Urine WBC Ur Squamous Epith Cells Urine Bacteria Urine Mucus Urine Test Urine Opiates Screen POSITIVE H Ur Barbiturates Screen Not Detected Ur Phencyclidine Scrn Not Detected Ur Amphetamines Screen Not Detected U Benzodiazepines Scrn POSITIVE H Urine Cocaine Screen POSITIVE H U Marijuana (THC) Screen Not Detected COVID-19 (SAMANTHA) Negative COVID-19 [employer] Com See Note Imaging Radiologist's Impressions: Impressions Femur CT 04/10/20 16:45 IMPRESSION: Small focus of edema in the subcutaneous tissue at the distal medial left thigh with a small air droplet in the area of the edema. No radiopaque foreign body. Assessment and Plan (1) Cellulitis: Qualifiers: Laterality: left Site of cellulitis: extremity Site of cellulitis of extremity: lower extremity Qualified Code(s): L03.116 - Cellulitis of left lower limb Status: Acute Continue with Zosyn for gram neg coverage Start with Vancomycin for gram positive coverage Follow up Vanco trough Start with Clindamycin as ordered for anti toxin effect Continue with gentle IV hydration and monitor renal function closely General surgery consulted per ED Dr Crump to follow up in the am Infectious disease consult in the am (2) Psychotic disorder: Status: Acute continue with psych home meds as ordered
--- NOTE | 2020-04-10 22:23 | PC.NURSE ---
CALLED UP TO [facility] FOR REPORT, EXPECTING CALL BACK
[2020-04-10] MEDS: Potassium Chloride/H20 10 MEQ/100 ML PIGGYBACK 100 MEQ IV (22:44)
--- NOTE | 2020-04-10 23:25 | PC.NURSE ---
SITTING UP IN BED. ALERT. BREATHING EVEN, NON-LABORED. NO APPARENT DISTRESS. POTASSIUM NOW INFUSING WITH NS TO PREVENT BURNING SENSATION.
[2020-04-11] VITALS (8 sets, daily range): BP systolic 96–131; BP diastolic 60–83; PULSE 64–83; RESP 16–18; TEMP 36.1–37.1; O2SAT 94–99
--- NOTE | 2020-04-11 00:10 | PC.NURSE ---
NURSE TO NURSE GIVEN TO PINKY VALENZUELA.
[2020-04-11] MEDS: Potassium Chloride/H20 10 MEQ/100 ML PIGGYBACK 100 MEQ IV (00:15)
[2020-04-11] MEDS: clonazePAM 1 MG TABLET 0.5 MG PO ×3 (00:22→20:58)
[2020-04-11] MEDS: QUEtiapine Fumarate 200 MG TABLET PO ×2 (00:23→20:58)
[2020-04-11] MEDS: 0.9 % Sodium Chloride 1,000 ML 75 ML IVCONT (01:56)
[2020-04-11] MEDS: Clindamycin Phosphate/D5W 300 MG/50 ML PIGGYBACK 100 MG IV ×2 (02:14→09:31)
[2020-04-11 02:30] LABS: Anion Gap 10 (12-20); Blood Urea Nitrogen 12 mg/dL (9-16); Carbon Dioxide 24 mmol/L (22-29); Chloride 109 mmol/L (96-108); Creatinine Clr Calc Pharmacy 80.7; Estimated Glomerular Filt Rate > 60; Glucose Random 114 mg/dL (60-115); Potassium 3.3 mmol/l (3.3-5.1); Sodium 140 mmol/L (135-145)
[2020-04-11] MEDS: vancomycin HCL 1,000 MG in 0.9 % Sodium Chloride 250 ML 270 MG IV ×2 (03:10→13:44)
[2020-04-11] MEDS: Morphine Sulfate 2 MG/ML CARTRIDGE 1 MG IVPUSH ×2 (05:21→17:11)
[2020-04-11] MEDS: Piperacillin Sodium/Tazobactam 3.375 GM in 0.9 % Sodium Chloride 50 ML IV ×3 (05:22→17:11)
[2020-04-11 06:48] LABS: MANUAL DIFF FLAG NO
[2020-04-11 06:53] LABS: Basophils Percent Auto 0.2 % (0-2); Eosinophils Percent Auto 0.2 % (0-4); Hematocrit 31.6 % (37-47); Hemoglobin 10.3 g/dl (12.0-16.0); Imm Gran Abs Auto 0.02 X10*3/uL (0.00-0.03); Imm Gran Pct Auto 0.5 % (0.0-0.4); Lymphocytes Absolute Auto 1.1 X10*3/uL (1.2-4.9); Mean Corpuscular HGB Conc 32.6 g/dl (31.0-35.0); Mean Corpuscular Hemoglobin 28.6 pg (27.0-33.0); Mean Corpuscular Volume 87.8 fL (80-98); Mean Platelet Volume 12.1 fL (9.4-12.3); Monocytes Absolute Auto 0.7 X10*3/uL (0.1-1.2); Monocytes Percent Auto 15.7 % (2-11); Neutrophils Absolute Auto 2.6 X10*3/uL (2.0-8.3); Neutrophils Percent Auto 58.4 % (45-73); Platelet Count 169 X10*3/uL (160-400); Red Cell Distribution Width 16.6 % (11.0-16.0); White Blood Count 4.4 X10*3/uL (4.8-10.8)
[2020-04-11 07:17] LABS: Anion Gap 11 (12-20); Blood Urea Nitrogen 11 mg/dL (9-16); Calcium 8.1 mg/dL (8.4-10.2); Carbon Dioxide 24 mmol/L (22-29); Chloride 109 mmol/L (96-108); Estimated Glomerular Filt Rate > 60; Glucose Random 114 mg/dL (60-115); Potassium 3.2 mmol/l (3.3-5.1); Sodium 141 mmol/L (135-145)
--- NOTE | 2020-04-11 08:25 | P.CONGS_ITS ---
History of Present Illness Consult details Consult date: 04/11/20 Narrative: 50-year-old female with known IV drug abuse history, came into the ER yesterday because pain on her left leg. She describes this as an injection site. She says she had been injecting this area with cocaine even up until yesterday. She says this area had been swollen and red for several days but he continued on using needles on the area. She says that she had been on methadone in the past but she had transportation issues so she had been unable to take her methadone for a while now. She therefore went back to doing IV cocaine. She does state that the redness and swelling on the area seems to be improving but she continued to have pain that was the reason why she went to the ER last night. She denies any fever or chills. She had a CAT scan in the ER showing a small droplet to air on the area of the swelling with no fluid collection. Review of Systems Constitutional: Constitutional: Denies headache(s) and Denies weakness ENT: Denies dizziness and Denies headache(s) Musculoskeletal: Musculoskeletal: Denies numbness and Denies tingling Neurologic: Reports system reviewed and no additional complaints, except as documented, Denies Abnormal speech present, Denies dizziness, Denies headache(s), Denies numbness, Denies tingling and Denies weakness PMFSH Past Medical History Medical History Asthma Cocaine use disorder, moderate, dependence Major depression, recurrent Opioid use disorder, severe, dependence Post traumatic stress disorder Functional capacity: independent ambulation Social History Social History Household Members: None Housing: Apartment Do you presently have visiting nurse or other home services: Yes 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: current 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 frequency: does not drink Alcohol type: hard liquor Smoking Status: Current every day smoker Tobacco Type: Cigarette Packs Per Day: 0 Cigarettes Per Day: 10 Years Smoked: whole life Smoked in Last 30 Days: Yes Patient Interested in Nicotine Replacement: No Patient Given Instructions on How to Stop Smoking: No Second Hand Smoke Exposure: Yes Use of substances other than those prescribed or required for medical reasons: Yes Substance Use Type: Crack/Cocaine Substance Use Frequency: Daily Last Used Substance: Hours (ago) Currently Displaying Signs/Symptoms of Drug Intoxication Withdrawal: No Any prior treatment program specific to substance use: Yes Have you been hit, kicked, punched, or otherwise hurt by someone within the past year? If so, by whom?: No Do you feel safe in your current relationship?: Yes Is there a partner from a previous relationship who is making you feel unsafe no w?: No Are you made to feel afraid or neglected: No Advance Directives: No Advance Directives Information Provided: No Do you have thoughts of harming others: None Do you have a plan to hurt others: No Plan Recently lost weight without trying: Yes service: No Sexual orientation: Straight/Heterosexual Meds Allergies Allergy/AdvReac Type Severity Reaction Status Date / Time trazodone [TRAZODONE] Allergy Severe SHORTNESS Verified 04/10/20 13:21 OF BREATH, GASPING FOR AIR , SOB aspirin [ASPIRIN] Allergy Unknown STOMACH Verified 04/10/20 13:21 UPSET, Nausea, nausa ciprofloxacin [Cipro] Allergy Unknown Rash Verified 04/10/20 13:21 promethazine [Phenergan] Allergy Unknown Hives Verified 04/10/20 13:21 Sulfa (Sulfonamide Allergy Unknown Unknown Verified 04/10/20 13:21 Antibiotics) Physical Exam Vital Signs: Vital Signs: Last Vital Signs Temp 98.2 F 04/11/20 03:11 Pulse 83 04/11/20 03:11 Resp 18 04/11/20 03:11 BP 107/71 04/11/20 03:11 Pulse Ox 99 04/11/20 03:11 Body Mass Index 24.2 Const: General: comfortable and no acute distress Neck: Neck: Yes no lymphadenopathy Resp: Effort & Inspection: normal respiratory effort Cardio: Rhythm: regular rhythm GI: Inspection: No distended Palpation (GI): Soft to palpation and nontender Neuro: Speech: No Abnormal speech present Extrem: Other: Left leg on the distal thigh medially is note of a cord-like induration, about 7 cm long, mild redness, mild tenderness, no fluctuance, no getting cellulitis, no other skin changes beyond this duration Results Labs Result diagrams: 04/11/20 06:16 04/11/20 06:16 Labs: Abnormal lab results 04/10/20 04/10/20 04/10/20 Range/Units 13:55 13:55 15:49 WBC 11.9 H (4.8-10.8) X10*3/uL RBC (4.20-5.50) X10*6/uL Hgb (12.0-16.0) g/dl Hct (37-47) % RDW 16.2 H (11.0-16.0) % Immature Gran % (Auto) (0.0-0.4) % Neut % (Auto) 80.5 H (45-73) % Lymph % (Auto) 7.4 L (20-40) % [place] % (Auto) 11.6 H (2-11) % Lymph # (Auto) 0.9 L (1.2-4.9) X10*3/uL [place] # (Auto) 1.4 H (0.1-1.2) X10*3/uL Abs Immat Gran (auto) 0.05 H (0.00-0.03) X10*3/uL Absolute Neuts (auto) 9.6 H (2.0-8.3) X10*3/uL PT 13.5 H (10.8-13.0) SEC Potassium 3.0 L (3.3-5.1) mmol/l Chloride (96-108) mmol/L Anion Gap (12-20) Calcium (8.4-10.2) mg/dL Ur Specific [place] (1.005-1.025) Urine Blood (NEG) Urine RBC (0) /HPF Urine Opiates Screen (Not Detect) U Benzodiazepines Scrn (Not Detect) Urine Cocaine Screen (Not Detect) 04/10/20 04/10/20 04/11/20 Range/Units 17:53 17:53 01:27 WBC (4.8-10.8) X10*3/uL RBC (4.20-5.50) X10*6/uL Hgb (12.0-16.0) g/dl Hct (37-47) % RDW (11.0-16.0) % Immature Gran % (Auto) (0.0-0.4) % Neut % (Auto) (45-73) % Lymph % (Auto) (20-40) % [place] % (Auto) (2-11) % Lymph # (Auto) (1.2-4.9) X10*3/uL [place] # (Auto) (0.1-1.2) X10*3/uL Abs Immat Gran (auto) (0.00-0.03) X10*3/uL Absolute Neuts (auto) (2.0-8.3) X10*3/uL PT (10.8-13.0) SEC Potassium (3.3-5.1) mmol/l Chloride 109 H (96-108) mmol/L Anion Gap 10 L (12-20) Calcium 8.0 L (8.4-10.2) mg/dL Ur Specific [place] >= 1.030 H (1.005-1.025) Urine Blood 2+ H (NEG) Urine RBC 5-9 H (0) /HPF Urine Opiates Screen POSITIVE H (Not Detect) U Benzodiazepines Scrn POSITIVE H (Not Detect) Urine Cocaine Screen POSITIVE H (Not Detect) 04/11/20 04/11/20 Range/Units 06:16 06:16 WBC 4.4 L (4.8-10.8) X10*3/uL RBC 3.60 L (4.20-5.50) X10*6/uL Hgb 10.3 L (12.0-16.0) g/dl Hct 31.6 L (37-47) % RDW 16.6 H (11.0-16.0) % Immature Gran % (Auto) 0.5 H (0.0-0.4) % Neut % (Auto) (45-73) % Lymph % (Auto) (20-40) % [place] % (Auto) 15.7 H (2-11) % Lymph # (Auto) 1.1 L (1.2-4.9) X10*3/uL [place] # (Auto) (0.1-1.2) X10*3/uL Abs Immat Gran (auto) (0.00-0.03) X10*3/uL Absolute Neuts (auto) (2.0-8.3) X10*3/uL PT (10.8-13.0) SEC Potassium 3.2 L (3.3-5.1) mmol/l Chloride 109 H (96-108) mmol/L Anion Gap 11 L (12-20) Calcium 8.1 L (8.4-10.2) mg/dL Ur Specific [place] (1.005-1.025) Urine Blood (NEG) Urine RBC (0) /HPF Urine Opiates Screen (Not Detect) U Benzodiazepines Scrn (Not Detect) Urine Cocaine Screen (Not Detect) Short CBC 04/10/20 04/11/20 Range/Units 13:55 06:16 WBC 11.9 H 4.4 L (4.8-10.8) X10*3/uL Hgb 12.6 10.3 L (12.0-16.0) g/dl Hct 37.7 31.6 L (37-47) % Plt Count 213 169 (160-400) X10*3/uL BMP 04/10/20 04/10/20 04/11/20 13:55 15:49 01:27 Sodium Cancelled 139 140 Potassium Cancelled 3.0 L 3.3 Chloride Cancelled 106 109 H Carbon Dioxide Cancelled 22 24 BUN Cancelled 14 12 Creatinine Cancelled 0.70 0.72 Calcium Cancelled 8.5 8.0 L 04/11/20 06:16 Sodium 141 Potassium 3.2 L Chloride 109 H Carbon Dioxide 24 BUN 11 Creatinine 0.66 Calcium 8.1 L Liver Function 04/10/20 04/10/20 Range/Units 13:55 15:49 Total Bilirubin Cancelled 0.7 Direct Bilirubin Cancelled 0.2 AST Cancelled 12 ALT Cancelled 10 Alkaline Phosphatase Cancelled 90 Albumin Cancelled 4.0 Urine 04/10/20 Range/Units 17:53 Urine Color YELLOW Urine Appearance HAZY Urine pH 5.5 (5.0-8.0) Ur Specific [place] >= 1.030 H (1.005-1.025) Urine Protein TRACE (NEG-TRACE) MG/DL Urine Glucose (UA) NEG (NEG) MG/DL Urine Test NEGATIVE (NEGATIVE) All other labs normal. Assessment and Plan (1) Cellulitis: Qualifiers: Laterality: left Site of cellulitis: extremity Site of cellulitis of extremity: lower extremity Qualified Code(s): L03.116 - Cellulitis of left lower limb Status: Acute She has like this the injection site. This does not appear to be spreading and as per the patient, seemed to have improved. There is no suggestion of any abscess. There is note of a small teardrop blood and injection site likely because the needle sticks that she has been doing on herself. There is no suggestion of soft tissue necrosis. Her white count is normal. She appears well and nontoxic. Would recommend continuing IV antibiotics until tomorrow. Warm compresses the area may help with induration. At this time, she does not appear to need any surgical intervention. I will follow along while she is in the hospital.
--- NOTE | 2020-04-11 08:36 | MHC.CM.PN ---
CM met with Patient. Patient lives alone in an apartment and she is functionally independent. Patient's goal is to return home and CM has initiated and will follow for dc planning.Should Patient require LT IVABT, [facility] and [facility] facilities may need to be considered r/t IVDA.Patient states that her PCP is supposed to be through [place], but she refuses to see a [place] MD. Patient may benefit from a Care Team Consult r/t PTSD, Depression, Psychotic d/o and IVDA.
--- NOTE | 2020-04-11 08:43 | MHC.CM.PN ---
CORRECTION!!! Patient's goal for dc is to return home with resumption of [facility] for daily RN for med management.
[2020-04-11] MEDS: Venlafaxine HCl ER 150 MG CAP.ER.24H 300 MG PO (09:17)
[2020-04-11] MEDS: oxyCODONE HCl Immed Release 5 MG TABLET PO (10:55)
--- NOTE | 2020-04-11 15:41 | HO.PM.IMPN ---
Subjective Subjective Date of Service: 04/11/20 Interval History: left leg pain Review of Systems Patient still has leg pain and erythema and swelling area slightly improving as per the patient Denies any fever or abdominal pain or urinary complaints or weakness or numbness, any paresthesias or any rash or blister. Physical Exam Vital Signs: Vital Signs: Last Vital Signs Temp 98.0 F 04/11/20 11:54 Pulse 68 04/11/20 11:54 Resp 18 04/11/20 11:54 BP 116/66 04/11/20 11:54 Pulse Ox 94 04/11/20 11:54 Body Mass Index 24.2 Physical exam: Constitutional: Not in distress, slightly anxious. Cvs: rrr, [id number] , no murmur res: clear to auscultation ,no rhonchii or wheezing abd: no rebound or guarding ,nt, bs present. ext: Cellulitis area in the inner lower thigh area: Erythema and swelling seems improving, no discharge or fluctuation, any blister or any paresthesia. Both extremities pulses present, no edema neuro: axo3 , nonfocal. Objective Data Current Medications Generic Name Dose Route Start Last Admin Trade Name Freq PRN Reason Stop Dose Admin Albuterol Sulfate 2 puff 04/10/20 21:59 Albuterol Sulfate 90 Mcg 8 Gm Inhaler INHALE Q4H PRN Shortness Of Breath Clonazepam 0.5 mg 04/10/20 21:59 04/11/20 12:15 Clonazepam 1 Mg Tablet PO 0.5 mg BID PRN Administration anxiety Heparin Sodium (Porcine) 5,000 unit 04/11/20 01:15 04/11/20 09:35 Heparin Sodium,Porcine 5,000 Unit/Ml Vial SUBCUT Not Given Q8H ALICIA Piperacillin Sod/Tazobactam 50 mls @ 100 mls/hr 04/10/20 23:00 04/11/20 13:48 Sod 3.375 gm/ Sodium Chloride IV Infused Q6H ALICIA Infusion Vancomycin HCl 1,000 mg/ 270 mls @ 270 mls/hr 04/10/20 23:00 04/11/20 15:36 Sodium Chloride IV Infused Q12H ALICIA Infusion Sodium Chloride 1,000 mls @ 75 mls/hr 04/11/20 01:15 04/11/20 14:18 Ns IVCONT Not Given .[id number] ALICIA Oxycodone HCl 5 mg 04/11/20 10:17 04/11/20 10:55 Oxycodone Hcl Immed Release 5 Mg Tablet PO 5 mg Q6H PRN Administration leg pain Pharmacy Consult 1 each 04/10/20 19:30 Consult Rx Perform Med Rec MISCELLANE 04/11/20 19:29 ONCE PRN Consult order Pharmacy Consult 1 each 04/10/20 22:02 Consult Rx Antimicrob Dosing MISCELLANE DAILY PRN Consult order Potassium Chloride 40 meq 04/11/20 09:00 04/11/20 09:30 Potassium Chloride Packet 20 Meq Packet PO Not Given DAILY ALICIA Quetiapine Fumarate 200 mg 04/11/20 21:00 04/11/20 00:23 Quetiapine Fumarate 200 Mg Tablet PO 200 mg BEDTIME ALICIA Administration Venlafaxine HCl 300 mg 04/11/20 09:00 04/11/20 09:17 Venlafaxine Hcl Er 150 Mg Cap.Er.24h PO 300 mg DAILY ALICIA Administration Zolpidem Tartrate 5 mg 04/10/20 21:59 Zolpidem Tartrate 5 Mg Tablet PO BEDTIME PRN Insomnia Labs CBC & Chem 7: 04/11/20 06:16 04/11/20 06:16 Assessment and Plan (1) Psychotic disorder: Status: Acute (2) Cellulitis: Status: Acute Assessment and Plan: 1. Left leg cellulitis: Patient is on Vanco and Zosyn, oxycodone per pain vanco trough Seen by surgery: CT reviewed and recommended to continue IV antibiotics currently. Id evaluation pending Patient says her erythema and swelling improving as well as pain. 2.: Hypokalemia: P.o. replacement ordered 3.hx of anxiety and dperession: Continue quetiapine, venalafexine, clonazepam.
--- NOTE | 2020-04-11 15:50 | MHC.CARE ---
CARE Team reaches out to [facility] regarding potential d/c date for pt. Pt was seen by addictions recovery specialist in the ED, with plan to refer for CCC, but pt was subsequently medically admitted. Plan is for Alfredo to see pt on 04/12 to further discuss MAT and substance use resources.
[2020-04-11] MEDS: Potassium Chloride ER 20 MEQ TAB.ER.PRT PO (16:47)
[2020-04-11] MEDS: QUEtiapine Fumarate 25 MG TABLET 12.5 MG PO (16:47)
[2020-04-11] MEDS: Zolpidem Tartrate 5 MG TABLET PO (21:03)
--- NOTE | 2020-04-11 21:58 | W.PM.IDCN ---
History of Present Illness Data of Consult Service Date: 04/11/20 Requesting physician: Fam Mg Primary Care Provider: None Physician HPI Reason for consult: thigh cellulitis Patient presents to hospital with discomfort left thigh. She injected cocaine into area yesterday. She has redness in area extending up leg and pain Review of Systems Constitutional: Constitutional: Denies headache(s) and Denies weakness ENT: Denies dizziness and Denies headache(s) Musculoskeletal: Musculoskeletal: Denies numbness and Denies tingling Neurologic: Reports system reviewed and no additional complaints, except as documented, Denies Abnormal speech present, Denies dizziness, Denies headache(s), Denies numbness, Denies tingling and Denies weakness PMFSH Past Medical History Medical History Asthma Cocaine use disorder, moderate, dependence Major depression, recurrent Opioid use disorder, severe, dependence Post traumatic stress disorder Functional capacity: independent ambulation Social History Social History Household Members: None Housing: Apartment 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: unknown Smoking Status: Unknown if ever smoked Tobacco Type: Cigarette Packs Per Day: 0 Cigarettes Per Day: 10 Years Smoked: whole life Second Hand Smoke Exposure: Yes Use of substances other than those prescribed or required for medical reasons: Yes Substance Use Type: Opiates Advance Directives: No service: No Current occupational status: disabled Sexual orientation: Straight/Heterosexual Meds Allergies Allergy/AdvReac Type Severity Reaction Status Date / Time trazodone [TRAZODONE] Allergy Severe SHORTNESS Verified 04/10/20 13:21 OF BREATH, GASPING FOR AIR , SOB aspirin [ASPIRIN] Allergy Unknown STOMACH Verified 04/10/20 13:21 UPSET, Nausea, nausa ciprofloxacin [Cipro] Allergy Unknown Rash Verified 04/10/20 13:21 promethazine [Phenergan] Allergy Unknown Hives Verified 04/10/20 13:21 Sulfa (Sulfonamide Allergy Unknown Unknown Verified 04/10/20 13:21 Antibiotics) Physical Exam Vital Signs: Vital Signs: Last Vital Signs Temp 97.7 F 04/11/20 19:03 Pulse 74 04/11/20 19:03 Resp 18 04/11/20 19:03 BP 123/83 04/11/20 19:03 Pulse Ox 98 04/11/20 19:03 Body Mass Index 24.2 Const: General: cooperative HENMT: Head: Yes normal to inspection Eyes: General: appearance normal, both eyes and all related structures Resp: Effort & Inspection: normal respiratory effort Cardio: Rate: regular rate Rhythm: regular rhythm GI: Palpation (GI): Soft to palpation and nontender Neuro: Speech: No Abnormal speech present Extrem: Left lower extremity: lower leg (erythema 6 cm up leg) Upper/lower leg/hip images: 1. thrombosed vein up leg Assessment and Plan (1) Cellulitis: Qualifiers: Laterality: left Site of cellulitis: extremity Site of cellulitis of extremity: lower extremity Qualified Code(s): L03.116 - Cellulitis of left lower limb Status: Resolved Suggest continue Vancomycin cover gram positive like staph aureus Would stop Zosyn Warmth treat thrombose hemorrhoid PO Doxycycline on discharge Results Labs CBC & Chem 7: 04/12/20 06:08 04/12/20 06:08 Labs: Short CBC 04/11/20 Range/Units 06:16 WBC 4.4 L (4.8-10.8) X10*3/uL Hgb 10.3 L (12.0-16.0) g/dl Hct 31.6 L (37-47) % Plt Count 169 (160-400) X10*3/uL BMP 04/11/20 04/11/20 01:27 06:16 Sodium 140 141 Potassium 3.3 3.2 L Chloride 109 H 109 H Carbon Dioxide 24 24 BUN 12 11 Creatinine 0.72 0.66 Calcium 8.0 L 8.1 L Microbiology Microbiology Results: Microbiology 04/10/20 13:56 Blood - Venous Blood Culture - Preliminary No growth after 24 hours. 04/10/20 13:56 Blood - Venous Blood Culture - Preliminary No growth after 24 hours.
--- NOTE | 2020-04-11 23:25 | PC.NURSE ---
Patient unhooking herself from the IV. Refusing fluids at this time.
[2020-04-12] VITALS: BP 131/80; PULSE 64; RESP 18; TEMP 36.7; O2SAT 97
[2020-04-12] MEDS: vancomycin HCL 1,000 MG in 0.9 % Sodium Chloride 250 ML 270 MG IV (00:29)
[2020-04-12] MEDS: Heparin Sodium,Porcine 5,000 UNIT/ML VIAL 5000 UNIT SUBCUT (00:31)
[2020-04-12 04:00] VITALS: BP 119/72; PULSE 78; RESP 18; TEMP 36.4; O2SAT 98
[2020-04-12 06:49] LABS: Hematocrit 35.9 % (37-47); Hemoglobin 11.5 g/dl (12.0-16.0); Mean Corpuscular Hemoglobin 28.2 pg (27.0-33.0); Mean Platelet Volume 12.2 fL (9.4-12.3); Platelet Count 187 X10*3/uL (160-400); Red Blood Count 4.08 X10*6/uL (4.20-5.50); Red Cell Distribution Width 16.6 % (11.0-16.0); White Blood Count 5.2 X10*3/uL (4.8-10.8)
[2020-04-12 07:07] LABS: Anion Gap 12 (12-20); Blood Urea Nitrogen 5 mg/dL (9-16); Carbon Dioxide 26 mmol/L (22-29); Chloride 107 mmol/L (96-108); Creatinine Clr Calc Pharmacy 93.7; Estimated Glomerular Filt Rate > 60; Glucose Random 88 mg/dL (60-115); Potassium 3.7 mmol/l (3.3-5.1); Sodium 141 mmol/L (135-145)
--- NOTE | 2020-04-12 07:39 | PM.PNGS ---
Subjective Subjective Date of Service: 04/12/20 Interval history: says the left thigh feels better pain much improved pt wants to go home Physical Exam Vital Signs: Vital Signs: Last Vital Signs Temp 97.5 F 04/12/20 04:00 Pulse 78 04/12/20 04:00 Resp 18 04/12/20 04:00 BP 119/72 04/12/20 04:00 Pulse Ox 98 04/12/20 04:00 Body Mass Index 24.2 Const: General: comfortable and no acute distress Cardio: Rhythm: regular rhythm GI: Palpation (GI): Soft to palpation and nontender Extrem: Other: left thigh - cellulitic area much improved, induration resolving well, no fluctuance Progress Note: A&P Assessment and plan (1) Cellulitis: Problem details: She has erythema going up leg She has thrombus and possible cellulitis Status: Acute Assessment and Plan: celluliutus much improved presentation c/w superficial thromboplebitis with cellulitis, resolved warm compresses to area looks ok to switch to PO abx pt counseled on IVDA Fall Risk Details Current Medications: Current Medications Generic Name Dose Route Start Last Admin Trade Name Freq PRN Reason Stop Dose Admin Acetaminophen 650 mg 04/11/20 15:46 Acetaminophen 325 Mg Tablet PO Q6H PRN Pain, Mild (Pain Scale 1-3) Albuterol Sulfate 2 puff 04/10/20 21:59 Albuterol Sulfate 90 Mcg 8 Gm Inhaler INHALE Q4H PRN Shortness Of Breath Clonazepam 0.5 mg 04/10/20 21:59 04/11/20 20:58 Clonazepam 1 Mg Tablet PO 0.5 mg BID PRN Administration anxiety Heparin Sodium (Porcine) 5,000 unit 04/11/20 01:15 04/12/20 00:31 Heparin Sodium,Porcine 5,000 Unit/Ml Vial SUBCUT 5,000 unit Q8H ALICIA Administration Vancomycin HCl 1,000 mg/ 270 mls @ 270 mls/hr 04/10/20 23:00 04/12/20 01:30 Sodium Chloride IV Infused Q12H ALICIA Infusion Sodium Chloride 1,000 mls @ 75 mls/hr 04/11/20 01:15 04/12/20 04:45 Ns IVCONT Not Given .[id number] ALICIA Morphine Sulfate 1 mg 04/11/20 16:54 04/11/20 17:11 Morphine Sulfate 2 Mg/Ml Cartridge IVPUSH 1 mg Q4H PRN Administration Pain, Mild (Pain Scale 1-3) Oxycodone HCl 5 mg 04/11/20 10:17 04/11/20 10:55 Oxycodone Hcl Immed Release 5 Mg Tablet PO 5 mg Q6H PRN Administration leg pain Pharmacy Consult 1 each 04/10/20 22:02 Consult Rx Antimicrob Dosing MISCELLANE DAILY PRN Consult order Potassium Chloride 40 meq 04/11/20 09:00 04/11/20 09:30 Potassium Chloride Packet 20 Meq Packet PO Not Given DAILY ALICIA Quetiapine Fumarate 200 mg 04/11/20 21:00 04/11/20 20:58 Quetiapine Fumarate 200 Mg Tablet PO 200 mg BEDTIME ALICIA Administration Venlafaxine HCl 300 mg 04/11/20 09:00 04/11/20 09:17 Venlafaxine Hcl Er 150 Mg Cap.Er.24h PO 300 mg DAILY ALICIA Administration Zolpidem Tartrate 5 mg 04/10/20 21:59 04/11/20 21:03 Zolpidem Tartrate 5 Mg Tablet PO 5 mg BEDTIME PRN Administration Insomnia Time Spent With Patient Time: Total time spent is greater than 50% in coordination of care (as documented) at patient's floor/unit and/or counseling patient: Time with patient: 15 - 24 minutes
[2020-04-12 08:00] VITALS: BP 120/83; PULSE 58; RESP 18; TEMP 36.2; O2SAT 97
--- NOTE | 2020-04-12 08:39 | MHC.CARE ---
Recovery Support note: Patient is a 50 year old [place] speaking female who presented to [facility] ED due to an injection site injury. Patient met with a Adjuster Leader while in the ED and expressed interest in possibly being referred to our MAT clinic. This designer/writer followed up with patient to see if she would like an additional resources or an appointment at our clinic. Patient reports she is still unsure if she wants to get connected with the [facility], stating that obtaining transportation is very difficult for her which is why she stopped Methadone MAT. Explained to patient that Suboxone can be prescribed and she would not have to go to the clinic daily. Patient accepted information on MAT clinics in the area, including the [facility]. Discussed IOP with patient. Patient reports she has done IOP in the past and has information on that resource. Informed patient that the IOP's are virtual now and she can attend from home. Discussed outpatient therapy with patient, patient reports she is already connected with a therapist. Patient reports she plans to follow up with [facility] for [facility] after discharge.
[2020-04-12] MEDS: Venlafaxine HCl ER 150 MG CAP.ER.24H 300 MG PO (09:10)
[2020-04-12] MEDS: clonazePAM 1 MG TABLET 0.5 MG PO (09:10)
--- NOTE | 2020-04-12 11:21 | PM.DS ---
DS: Providers Provider Date of admission: 04/10/20 22:02 Primary care physician: None Physician Consults: 04/10/20 22:02 Consult to Infectious Diseases Routine Consulting Provider: Esperanza Cervantes Reason for consultation: cellulitis Has provider been notified: No 04/11/20 01:15 Consult to General Surgery Routine Consulting Provider: [facility] General Surgeons Reason for consultation: cellulitis Has provider been notified: Yes DS: Diagnosis Discharge Diagnosis (1) Cellulitis: Status: Acute DS: Medications Discharge Medications Home Medications: Previous Rx's Medication Instructions Recorded Narcan 4 mg INTRANASAL (ALT) ONCE PRN 1 03/15/20 Days #1 ea albuterol sulfate [Ventolin HFA] 2 puff INHALATION Q4H PRN 30 Days 03/15/20 #2 g clonazepam 0.5 mg PO BID PRN 30 Days #60 tab 03/15/20 quetiapine 50 mg PO TID PRN 30 Days #90 tab 03/15/20 quetiapine [Seroquel] 200 mg PO BEDTIME 30 Days #30 tab 03/15/20 venlafaxine 300 mg PO DAILY 30 Days #60 cap 03/15/20 zolpidem [Ambien] 10 mg PO BEDTIME PRN 30 Days #30 03/15/20 tab doxycycline hyclate 100 mg PO BID 7 Days #14 tab 04/12/20 DS: Summary Hospital Course Hospital Course: HPI from admission 85 y/o female with PMHX of underlying psychotic disorder and IV drug abuse who presented from home due to Left leg pain. Patient is a poor historian. Reports that has been injecting cocaine directly to her skin in the left leg and noticed several days ago that her distal part of the thigh became swollen and had a surrounded redness. Patient reports that for the past few days has been present but now has noticed that the erythema has decreased compared to when it started. Patient decided to come to the ED because noticed that eventhough the redness has been improving but the pain got worse. Patient denies any episodes of chest pain, SOB, nausea, vomiting, diarrhea or fever. On presentation to the ED patient was initially at some point tachypneic but rest of the vitals remained stable, initial blood work showed leukocytosis of 11.9 with left shift, K of 3.0, Utox positive for opiates, benzos and cocaine. Patient was given a total of 1 liter NS, one dose of Zosyn and Clindamycin at 1 pm. KCL not supplemented. Decision for admission taken at 7 pm. Patient was seen and examined at the bedside, laying down in bed in no acute distress. ROS as above otherwise negative. Physical exam showing distal left thigh swelling with surrounding erythema of approximately 5 cm, hot to touch and tender, hard but no palpable fluctuation or crepitate. CT reviewed which showed edema with small air droplet. General Surgery Dr Crump was contacted per ED who reports that air droplet might be secondary to injections and recommended patient to be admitted to medicine for IV antbx and will follow up in am. Hospital course 50-year-old female with IV drug use admitted with left lower extremity cellulitis and thrombophlebitis, patient was started on Vanco and Zosyn, cultures were sent, patient was seen by ID recommended continue Vanco and Zosyn, left lower extremity erythema and swelling improved, blood cultures remain negative, patient was stable, patient was seen by care team and given outpatient resources, patient was discharged home with p.o. doxycycline Time Spent with Patient Time attestation: Total time spent providing and/or coordinating discharge services: Physical Exam Vital Signs: Vital Signs: Last Vital Signs Temp 97.2 F 04/12/20 08:00 Pulse 58 04/12/20 08:00 Resp 18 04/12/20 08:00 BP 120/83 04/12/20 08:00 Pulse Ox 97 04/12/20 08:00 Body Mass Index 24.2 Const: General: cooperative, comfortable and no acute distress Orientation/consciousness: oriented to person, oriented to place and oriented to time HENMT: Head: Yes normal to inspection Eyes: General: appearance normal, both eyes and all related structures Neck: Neck: Yes normal visual inspection Chest: Chest palpation & inspection: normal inspection of the chest Resp: Effort & Inspection: normal respiratory effort Auscultation: clear to auscultation bilaterally Cardio: Jugular venous distension: no JVD Rate: regular rate Rhythm: regular rhythm Heart sounds: S1 normal heart sound present and S2 normal heart sound present GI: Inspection: Yes normal to inspection Skin: General skin exam: other (distal left thigh swelling with surrounding erytema, 5 cm diameter approxim) Neuro: General: oriented to person, oriented to place and oriented to time Cognition (Neuro): normal cognition DS: Data Data Completed and Pending Labs on day of discharge: 04/10/20 13:14 ECG 12 lead EKG Stat EKG Documentation DIRECTED 0.9 % Sodium Chloride [Ns] 1,000 ml IV 999 mls/hr 04/10/20 13:15 Morphine Sulfate 4 mg IVPUSH ONCE ONE Piperacillin Sodium/Tazobactam [Zosyn] 3.375 gm 0.9 % Sodium Chloride [Ns] 50 ml IV ONCE 04/10/20 13:55 Complete Blood Count Auto Diff Stat Lactic Acid Stat Prothrombin Time INR Stat 04/10/20 14:00 Piperacillin Sodium/Tazobactam [Zosyn] 3.375 gm IV .STK-MED ONE 04/10/20 14:10 ondansetron HCL [Zofran] 4 mg IVPUSH ONCE ONE 04/10/20 14:12 ondansetron HCL [Zofran] 4 mg .ROUTE .STK-MED ONE 04/10/20 15:10 Ketorolac Tromethamine [Toradol] 30 mg IVPUSH ONCE ONE 04/10/20 15:49 BMP [Basic Metabolic Panel] Stat Liver Panel Stat Magnesium Stat 04/10/20 16:45 CT femur LT w con Stat Clindamycin Phosphate/D5W [Cleocin] 600 mg in 50 ml IV ONCE 04/10/20 17:53 Drug Screen Urine Stat Ur Preg Test Stat 04/10/20 18:02 Morphine Sulfate 4 mg IVPUSH ONCE ONE oxyCODONE HCl Immed Release [Roxicodone] 5 mg PO ONCE ONE 04/10/20 18:13 iohexoL 350 MG/ML [Omnipaque 350 MG/ML] 100 ml IV ONCE ONE 04/10/20 19:30 Consult Rx Perform Med Rec 1 each MISCELLANE ONCE PRN 04/10/20 19:54 COVID-19 ID NOW ([facility]) Stat 04/10/20 22:00 Transfer Order Routine 04/10/20 22:15 Potassium Chloride/H20 10 meq in 100 ml IV Q1H 04/10/20 22:29 vancomycin HCL 1,000 mg .ROUTE .STK-MED ONE 04/10/20 22:32 Piperacillin Sodium/Tazobactam [Zosyn] 3.375 gm IV .STK-MED ONE 04/10/20 23:00 Piperacillin Sodium/Tazobactam [Zosyn] 3.375 gm 0.9 % Sodium Chloride [Ns] 50 ml IV Q6H 04/11/20 00:00 Clindamycin Phosphate/D5W [Cleocin] 300 mg in 50 ml IV Q6H Clindamycin Phosphate/D5W [Cleocin] 300 mg in 50 ml IV Q8H 04/11/20 01:27 Basic Metabolic Panel Stat 04/11/20 03:56 Morphine Sulfate 1 mg IVPUSH ONCE ONE 04/11/20 05:17 Piperacillin Sodium/Tazobactam [Zosyn] 3.375 gm IV .STK-MED ONE 04/11/20 06:16 Basic Metabolic Panel Routine Complete Blood Count Auto Diff Routine 04/11/20 Breakfast Low Sodium Diet 04/11/20 10:51 Piperacillin Sodium/Tazobactam [Zosyn] 3.375 gm IV .STK-MED ONE 04/11/20 13:36 vancomycin HCL 1,000 mg .ROUTE .STK-MED ONE 04/11/20 15:39 QUEtiapine Fumarate [SEROquel] 12.5 mg PO ONCE ONE 04/11/20 15:46 Potassium Chloride ER [Klor-con] 20 meq PO ONCE ONE 04/11/20 17:02 Piperacillin Sodium/Tazobactam [Zosyn] 3.375 gm IV .STK-MED ONE 04/12/20 00:18 vancomycin HCL 1,000 mg .ROUTE .STK-MED ONE 04/12/20 06:08 Basic Metabolic Panel DAILY@0600 Complete Blood Count no Diff Routine Laboratory Last Values WBC 5.2 X10*3/uL (4.8-10.8) 04/12/20 06:08 RBC 4.08 X10*6/uL (4.20-5.50) L 04/12/20 06:08 Hgb 11.5 g/dl (12.0-16.0) L 04/12/20 06:08 Hct 35.9 % (37-47) L 04/12/20 06:08 MCV 88.0 fL (80-98) 04/12/20 06:08 MCH 28.2 pg (27.0-33.0) 04/12/20 06:08 MCHC 32.0 g/dl (31.0-35.0) 04/12/20 06:08 RDW 16.6 % (11.0-16.0) H 04/12/20 06:08 Plt Count 187 X10*3/uL (160-400) 04/12/20 06:08 MPV 12.2 fL (9.4-12.3) 04/12/20 06:08 Immature Gran % (Auto) 0.5 % (0.0-0.4) H 04/11/20 06:16 Neut % (Auto) 58.4 % (45-73) 04/11/20 06:16 Lymph % (Auto) 25.0 % (20-40) 04/11/20 06:16 [place] % (Auto) 15.7 % (2-11) H 04/11/20 06:16 Eos % (Auto) 0.2 % (0-4) 04/11/20 06:16 Baso % (Auto) 0.2 % (0-2) 04/11/20 06:16 Lymph # (Auto) 1.1 X10*3/uL (1.2-4.9) L 04/11/20 06:16 [place] # (Auto) 0.7 X10*3/uL (0.1-1.2) 04/11/20 06:16 Eos # (Auto) 0.0 X10*3/uL (0.0-0.4) 04/11/20 06:16 Baso # (Auto) 0.0 X10*3/uL (0.0-0.2) 04/11/20 06:16 Abs Immat Gran (auto) 0.02 X10*3/uL (0.00-0.03) 04/11/20 06:16 Absolute Neuts (auto) 2.6 X10*3/uL (2.0-8.3) 04/11/20 06:16 Absolute Nucleated RBC 0.000 X10*3/uL (0.0-0.012) 04/12/20 06:08 Nucleated RBC % (auto) 0.0 /100WBC (0.0-0.2) 04/12/20 06:08 PT 13.5 SEC (10.8-13.0) H 04/10/20 13:55 INR 1.1 (0.9-1.1) 04/10/20 13:55 Sodium 141 mmol/L (135-145) 04/12/20 06:08 Potassium 3.7 mmol/l (3.3-5.1) 04/12/20 06:08 Chloride 107 mmol/L (96-108) 04/12/20 06:08 Carbon Dioxide 26 mmol/L (22-29) 04/12/20 06:08 Anion Gap 12 (12-20) 04/12/20 06:08 BUN 5 mg/dL (9-16) L D 04/12/20 06:08 Creatinine 0.62 mg/dL (0.5-1.4) 04/12/20 06:08 Estim Creat Clear Calc 93.7 04/12/20 06:08 Estimated GFR > 60 04/12/20 06:08 Random Glucose 88 mg/dL (60-115) 04/12/20 06:08 Lactic Acid 0.9 mmol/L (0.5-2.0) 04/10/20 13:55 Calcium 9.0 mg/dL (8.4-10.2) D 04/12/20 06:08 Magnesium 2.2 mg/dL (1.6-2.6) 04/10/20 15:49 Total Bilirubin 0.7 mg/dL (0.0-1.0) 04/10/20 15:49 Direct Bilirubin 0.2 mg/dL (0.0-0.5) 04/10/20 15:49 AST 12 U/L (5-31) 04/10/20 15:49 ALT 10 U/L (0-31) 04/10/20 15:49 Alkaline Phosphatase 90 U/L (39-117) 04/10/20 15:49 Total Protein 7.0 g/dL (6.5-8.0) 04/10/20 15:49 Albumin 4.0 g/dL (3.5-5.0) 04/10/20 15:49 Urine Color YELLOW 04/10/20 17:53 Urine Appearance HAZY 04/10/20 17:53 Urine pH 5.5 (5.0-8.0) 04/10/20 17:53 Ur Specific [place] >= 1.030 (1.005-1.025) H 04/10/20 17:53 Urine Protein TRACE MG/DL (NEG-TRACE) 04/10/20 17:53 Urine Glucose (UA) NEG MG/DL (NEG) 04/10/20 17:53 Urine Ketones 40 MG/DL (NEG) 04/10/20 17:53 Urine Blood 2+ (NEG) H 04/10/20 17:53 Urine Nitrite NEG (NEG) 04/10/20 17:53 Ur Leukocyte Esterase NEG (NEG) 04/10/20 17:53 Urine RBC 5-9 /HPF (0) H 04/10/20 17:53 Urine WBC 0 /HPF (0-4) 04/10/20 17:53 Ur Squamous Epith Cells TRACE /LPF 04/10/20 17:53 Urine Bacteria NONE /LPF 04/10/20 17:53 Urine Mucus 1+ /LPF 04/10/20 17:53 Urine Test NEGATIVE (NEGATIVE) 04/10/20 17:53 Urine Opiates Screen POSITIVE (Not Detect) H 04/10/20 17:53 Ur Barbiturates Screen Not Detected (Not Detect) 04/10/20 17:53 Ur Phencyclidine Scrn Not Detected (Not Detect) 04/10/20 17:53 Ur Amphetamines Screen Not Detected (Not Detect) 04/10/20 17:53 U Benzodiazepines Scrn POSITIVE (Not Detect) H 04/10/20 17:53 Urine Cocaine Screen POSITIVE (Not Detect) H 04/10/20 17:53 U Marijuana (THC) Screen Not Detected (Not Detect) 04/10/20 17:53 COVID-19 (SAMANTHA) Negative (Negative) 04/10/20 19:54 COVID-19 Clin Com See Note 04/10/20 19:54 Preliminary micro results at discharge 04/10/20 13:56 Blood Culture - Preliminary Blood - Venous No growth after 24 hours. 04/10/20 13:56 Blood Culture - Preliminary Blood - Venous No growth after 24 hours. Discharge Plan Discharge Anticipated Discharge Date/Time: 04/12/20 11:16 Patient Disposition: Home Health Service Referrals: [facility] [Outside] Physician,None [Primary Care Provider] - Discharge Medications: New doxycycline hyclate 100 mg tablet 100 mg PO BID 7 Days Qty: 14 RF: 0 Continued albuterol sulfate [Ventolin HFA] 90 mcg/actuation Hfa Aerosol Inhaler 2 puff inhalation Q4H PRN (Reason: Shortness Of Breath) 30 Days Qty: 2 RF: 0 quetiapine [Seroquel] 200 mg tablet 200 mg PO BEDTIME 30 Days Qty: 30 RF: 0 clonazepam 1 mg Tablet 0.5 mg PO BID PRN (Reason: anxiety) 30 Days Qty: 60 RF: 0 venlafaxine 150 mg Capsule,Extended Release 24hr 300 mg PO DAILY 30 Days Qty: 60 RF: 0 quetiapine 50 mg Tablet 50 mg PO TID PRN (Reason: Anxiety) 30 Days Qty: 90 RF: 0 Narcan 4 mg/actuation [place],Non-Aerosol 4 mg intranasal (ALT) ONCE PRN (Reason: opioid overdose) 1 Days Qty: 1 RF: 0 zolpidem [Ambien] 10 mg Tablet 10 mg PO BEDTIME PRN (Reason: Insomnia) 30 Days Qty: 30 RF: 0 Discharge Orders: Discharge Order (Routine); Ordered 04/12/20 Ordered By: Thanh Roach Diet: advance to usual diet Activity on Discharge: As tolerated Discharge Date/Time: 04/12/20 12:35 Visit Report Forms: Patient Portal Discharge page Care Plan Goals: see above Health Concerns: drug abuse Plan of Treatment: outpatient resource by care team
--- NOTE | 2020-04-12 11:22 | MHC.CM.PN ---
Patient has been medically cleared for dc to home to resume [facility] services from [facility], who has been notified of today's dc.
== END 2020-04-12 12:35 | disposition home health service (06) | DRG 383 ==
LOC: HO.ED 19:35 → HO.IMC 22:18
PROVIDERS: Internal Medicine; Nurse Practitioner Family; Physician Assistant Medical; Admitting Provider Internal Medicine; Emergency Provider Emergency Medicine; Visit Provider Internal Medicine
DX: L03.116 Cellulitis of left lower limb (principal); F33.9 Major depressive disorder, recurrent, unspecified; F10.20 Alcohol dependence, uncomplicated; F29 Unspecified psychosis not due to a substance or known physiological condition; F17.210 Nicotine dependence, cigarettes, uncomplicated; Z71.6 Tobacco abuse counseling; E87.6 Hypokalemia; F41.9 Anxiety disorder, unspecified; Z20.828 Contact with and (suspected) exposure to other viral communicable diseases; Z88.2 Allergy status to sulfonamides; Z88.6 Allergy status to analgesic agent; Z79.899 Other long term (current) drug therapy
CPT/HCPCS: 36415; 73701; 80048; 80076; 80307; 81001; 81025; 83605; 83735; 85025; 85027; 85610; 87040; 87635; 93005; 96361; 96365; 96375; 96376; 99285; J1885; J2270; J2405; J2543; J3370; Q9967

== ENCOUNTER 2020-04-29 20:52 | Emergency (ER) | payer OTHER, SELFPAY ==
[2020-04-29 21:09] VITALS: BP 100/60; BP 125/80; PULSE 79; PULSE 80; RESP 20; TEMP 36.4; O2SAT 98; BMI 23.0
--- NOTE | 2020-04-29 21:52 | ED.OVERDOSE ---
HPI - Overdose General Chief Complaint: Overdose Stated Complaint: od Time Seen by Provider: 04/29/20 21:45 Source: patient Mode of arrival: EMS Limitations: no limitations History of Present Illness HPI Narrative: Patient comes to the emergency room complaining of an overdose. Patient states earlier today she snorted powder of a tablet which she thought it was oxycodone. Patient states that she thinks she overdosed, when she woke up she called EMS. Patient states she did not fall, no head injury, no chest pain or shortness of breath. Patient states she did not mean to overdose. Denies SI or HI. Patient complaining of menstrual cramps. Related Data Previous Rx's Medication Instructions Recorded Narcan 4 mg INTRANASAL (ALT) ONCE PRN 1 03/15/20 Days #1 ea albuterol sulfate [Ventolin HFA] 2 puff INHALATION Q4H PRN 30 Days 03/15/20 #2 g clonazepam 0.5 mg PO BID PRN 30 Days #60 tab 03/15/20 quetiapine 50 mg PO TID PRN 30 Days #90 tab 03/15/20 quetiapine [Seroquel] 200 mg PO BEDTIME 30 Days #30 tab 03/15/20 venlafaxine 300 mg PO DAILY 30 Days #60 cap 03/15/20 zolpidem [Ambien] 10 mg PO BEDTIME PRN 30 Days #30 03/15/20 tab doxycycline hyclate 100 mg PO BID 7 Days #14 tab 04/12/20 Allergies Allergy/AdvReac Type Severity Reaction Status Date / Time trazodone [TRAZODONE] Allergy Severe SHORTNESS Verified 04/10/20 13:21 OF BREATH, GASPING FOR AIR , SOB aspirin [ASPIRIN] Allergy Unknown STOMACH Verified 04/10/20 13:21 UPSET, Nausea, nausa ciprofloxacin [Cipro] Allergy Unknown Rash Verified 04/10/20 13:21 promethazine [Phenergan] Allergy Unknown Hives Verified 04/10/20 13:21 Sulfa (Sulfonamide Allergy Unknown Unknown Verified 04/10/20 13:21 Antibiotics) Review of Systems Review of Systems: Constitutional : No Weight loss, No Fever, No Chills, No Night Sweats, No Fatigue, No Malaise ENT/Mouth : No Hearing loss, No Ear Pain, No Nasal Congestion, No Sinus Pain, No Hoarseness, No sore throat, No Rhinorrhea, No Swallowing Difficulty Eyes: No Eye Pain, No Swelling, No Redness, No Foreign Body, No Discharge, No Vision Changes Cardiovascular : No Chest Pain, No SOB, No Dyspnea on Exertion, No Orthopnea, No Edema, No Palpitations Respiratory : No Cough, No Sputum, No Wheezing, No Smoke Exposure, No Dyspnea Gastrointestinal : No Nausea, No Vomiting, No Diarrhea, No Constipation, No abdominal Pain, No Hematochezia, No Melena Genitourinary : Patient complaining abdominal cramps, No Dysuria, No Urinary Frequency, No Hematuria, No Urinary Incontinence, No Urgency, No Flank Pain, No Urinary Flow Changes, No Hesitancy Musculoskeletal : No joint pain, No Myalgias, No Joint Swelling Skin : No Skin Lesions, No rash Neuro : No Weakness, No Numbness, No Paresthesias, No Loss of Consciousness, No Dizziness, No Headache Psych : No Anxiety/Panic, No Depression, No SI/HI/AH/VH, No Social Issues, Heme/Lymph: No Bruising, No Bleeding,No Lymphadenopathy Endocrine : No Polyuria, No Polydipsia, No Temperature Intolerance [facility] Past Medical History Medical History Asthma Cocaine use disorder, moderate, dependence Major depression, recurrent Opioid use disorder, severe, dependence Post traumatic stress disorder Social History Social History Household Members: None Housing: Apartment 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: current 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 frequency: does not drink Alcohol type: hard liquor Smoking Status: Current every day smoker Tobacco Type: Cigarette Packs Per Day: 0 Cigarettes Per Day: 10 Years Smoked: whole life Second Hand Smoke Exposure: Yes Substance Use Type: Crack/Cocaine Advance Directives: No service: No Current occupational status: disabled Sexual orientation: Straight/Heterosexual Physical Exam Vital Signs: Vital Signs: Last Vital Signs Temp 97.6 F 04/30/20 00:23 Pulse 80 04/30/20 00:23 Resp 14 04/30/20 00:23 BP 100/63 04/30/20 00:23 Pulse Ox 96 04/30/20 00:23 Body Mass Index 23.0 Appearance: Alert. Oriented X3. No acute distress. Somnolent but easily arousable to name Eyes: Pupils equal, round and reactive to light. ENT: Pharynx normal. Neck: Normal inspection. Neck supple. No lymph nodes noted. No crepitus CVS: Normal heart rate and rhythm. Pulses normal. Normal S1 and S2 Respiratory: No respiratory distress. Breath sounds normal. No Wheezing. No rales Abdomen: Soft and nontender to palpation. No rigidity. No distention. good BS x4 Skin: Skin warm and dry. Normal skin color. Normal skin turgor. Extremities: No lower extremity edema. No lower extremity edema. No Lacerations. No Rash Neuro: Oriented X 3. No motor deficit. No sensory deficit. Moving all extermities. No slurred speech. Course Course Course Narrative: Patient remains sleeping, easily arousable. Does not seem sober yet. Please discharge when patient is sober. Patient is now sober, patient is alert and oriented x3, steady gait. Patient ready for discharge Discharge Plan Discharge Clinical Impression: Drug overdose Qualifiers: Encounter type: initial encounter Injury intent: accidental or unintentional Qualified Code(s): T50.901A - Poisoning by unspecified drugs, medicaments and biological substances, accidental (unintentional), initial encounter Patient Disposition: Home, Self-Care Instructions: Adult Overdose (ED) Additional Instructions: Please stop using drugs. Please follow-up with your primary care physician tomorrow. If you have any worsening or new symptoms, please return to the emergency room or call 911 Prescriptions: No Action albuterol sulfate [Ventolin HFA] 90 mcg/actuation Hfa Aerosol Inhaler 2 puff inhalation Q4H PRN (Reason: Shortness Of Breath) 30 Days Qty: 2 RF: 0 quetiapine [Seroquel] 200 mg tablet 200 mg PO BEDTIME 30 Days Qty: 30 RF: 0 clonazepam 1 mg Tablet 0.5 mg PO BID PRN (Reason: anxiety) 30 Days Qty: 60 RF: 0 venlafaxine 150 mg Capsule,Extended Release 24hr 300 mg PO DAILY 30 Days Qty: 60 RF: 0 quetiapine 50 mg Tablet 50 mg PO TID PRN (Reason: Anxiety) 30 Days Qty: 90 RF: 0 Narcan 4 mg/actuation [place],Non-Aerosol 4 mg intranasal (ALT) ONCE PRN (Reason: opioid overdose) 1 Days Qty: 1 RF: 0 zolpidem [Ambien] 10 mg Tablet 10 mg PO BEDTIME PRN (Reason: Insomnia) 30 Days Qty: 30 RF: 0 doxycycline hyclate 100 mg tablet 100 mg PO BID 7 Days Qty: 14 RF: 0
[2020-04-29] MEDS: Ibuprofen 600 MG TABLET PO (22:02)
[2020-04-29 22:16] VITALS: BP 107/71; PULSE 77; RESP 14; TEMP 36.6; O2SAT 96
[2020-04-30 00:23] VITALS: BP 100/63; PULSE 80; RESP 14; TEMP 36.4; O2SAT 96
[2020-04-30 02:39] VITALS: BP 117/73; PULSE 77; RESP 16; TEMP 36.7; O2SAT 98
[2020-04-30] MEDS: Acetaminophen 325 MG TABLET 650 MG PO (02:39)
== END 2020-04-30 03:22 | disposition home or self-care (01) ==
PROVIDERS: Emergency Provider Emergency Medicine
DX: T50.901A Poisoning by unspecified drugs, medicaments and biological substances, accidental (unintentional), initial encounter (principal); R40.0 Somnolence; Y92.009 Unspecified place in unspecified non-institutional (private) residence as the place of occurrence of the external cause; F11.20 Opioid dependence, uncomplicated; F14.20 Cocaine dependence, uncomplicated; F17.210 Nicotine dependence, cigarettes, uncomplicated
CPT/HCPCS: 99284

== ENCOUNTER 2020-05-27 16:48 | Emergency (ER) | payer OTHER, SELFPAY ==
[2020-05-27 17:06] VITALS: BP 126/80; BP 91/61; PULSE 107; PULSE 90; RESP 16; TEMP 36.6; O2SAT 97; O2SAT 98; BMI 21.4
[2020-05-27 17:26] VITALS: BP 103/66; PULSE 79
--- NOTE | 2020-05-27 17:29 | ECG_ITS ---
Test Reason : OVERDOSE Blood Pressure : / mmHG Vent. Rate : 073 BPM Atrial Rate : 073 BPM P-R Int : 148 ms QRS Dur : 084 ms QT Int : 412 ms P-R-T Axes : -12 026 030 degrees QTc Int : 453 ms Normal sinus rhythm Normal ECG When compared with ECG of 10-APR-2020 13:30, No significant change was found Referred By: Imelda Hoyt Electronically Signed By:JEN TAYLOR
--- NOTE | 2020-05-27 17:32 | ED_ITS ---
HPI - Psych General Chief Complaint: Psychiatric Symptoms Stated Complaint: section 12, overdose Time Seen by Provider: 05/27/20 17:24 Source: patient and EMS Mode of arrival: EMS Limitations: no limitations History of Present Illness HPI Narrative: Patient comes to the emergency room complaining of a suicide attempt. Patient states earlier today, she called the crisis center, concerned that she was feeling suicidal. She waited back for a phone call, but while waiting she decided to ingest Seroquel tablets of 100 mg each. Patient states she took a handful, estimates she had 15-20 tablets. Patient denies homicidal ideation. Patient states that over the last year she has had a lot of stress in her life, mostly with family members dying or being very sick. MD complaint: suicidal ideation Related Data Previous Rx's Medication Instructions Recorded Narcan 4 mg INTRANASAL (ALT) ONCE PRN 1 03/15/20 Days #1 ea albuterol sulfate [Ventolin HFA] 2 puff INHALATION Q4H PRN 30 Days 03/15/20 #2 g clonazepam 0.5 mg PO BID PRN 30 Days #60 tab 03/15/20 quetiapine 50 mg PO TID PRN 30 Days #90 tab 03/15/20 quetiapine [Seroquel] 200 mg PO BEDTIME 30 Days #30 tab 03/15/20 venlafaxine 300 mg PO DAILY 30 Days #60 cap 03/15/20 zolpidem [Ambien] 10 mg PO BEDTIME PRN 30 Days #30 03/15/20 tab doxycycline hyclate 100 mg PO BID 7 Days #14 tab 04/12/20 Allergies Allergy/AdvReac Type Severity Reaction Status Date / Time trazodone [TRAZODONE] Allergy Severe SHORTNESS Verified 04/10/20 13:21 OF BREATH, GASPING FOR AIR , SOB aspirin [ASPIRIN] Allergy Unknown STOMACH Verified 04/10/20 13:21 UPSET, Nausea, nausa ciprofloxacin [Cipro] Allergy Unknown Rash Verified 04/10/20 13:21 promethazine [Phenergan] Allergy Unknown Hives Verified 04/10/20 13:21 Sulfa (Sulfonamide Allergy Unknown Unknown Verified 04/10/20 13:21 Antibiotics) Review of Systems Review of Systems: Constitutional : No Weight loss, No Fever, No Chills, No Night Sweats, No Fatigue, No Malaise ENT/Mouth : No Hearing loss, No Ear Pain, No Nasal Congestion, No Sinus Pain, No Hoarseness, No sore throat, No Rhinorrhea, No Swallowing Difficulty Eyes: No Eye Pain, No Swelling, No Redness, No Foreign Body, No Discharge, No Vision Changes Cardiovascular : No Chest Pain, No SOB, No Dyspnea on Exertion, No Orthopnea, No Edema, No Palpitations Respiratory : No Cough, No Sputum, No Wheezing, No Smoke Exposure, No Dyspnea Gastrointestinal : No Nausea, No Vomiting, No Diarrhea, No Constipation, No abdominal Pain, No Hematochezia, No Melena Genitourinary : no irregular bleeding, No Dysuria, No Urinary Frequency, No Hematuria, No Urinary Incontinence, No Urgency, No Flank Pain, No Urinary Flow Changes, No Hesitancy Musculoskeletal : No joint pain, No Myalgias, No Joint Swelling Skin : No Skin Lesions, No rash Neuro : No Weakness, No Numbness, No Paresthesias, No Loss of Consciousness, No Dizziness, No Headache Psych : Complaining of depression, had a suicidal attempt, no homicidal ideation Heme/Lymph: No Bruising, No Bleeding,No Lymphadenopathy Endocrine : No Polyuria, No Polydipsia, No Temperature Intolerance PMFSH Past Medical History Medical History Asthma Cocaine use disorder, moderate, dependence Major depression, recurrent Opioid use disorder, severe, dependence Post traumatic stress disorder Social History Social History Household Members: None Housing: Apartment 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: current 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 frequency: does not drink Alcohol type: hard liquor Smoking Status: Current every day smoker Tobacco Type: Cigarette Packs Per Day: 0 Cigarettes Per Day: 10 Years Smoked: whole life Second Hand Smoke Exposure: Yes Use of substances other than those prescribed or required for medical reasons: Yes Substance Use Type: Crack/Cocaine Substance Use Frequency: Chronic Longstanding Last Used Substance: Days (ago) Advance Directives: No Advance Directives Information Provided: Yes service: No Current occupational status: disabled Sexual orientation: Straight/Heterosexual Physical Exam Vital Signs: Vital Signs: Last Vital Signs Temp 97.8 F 05/27/20 17:06 Pulse 88 05/27/20 18:33 Resp 16 05/27/20 17:06 BP 95/64 05/27/20 18:33 Pulse Ox 97 05/27/20 17:06 Body Mass Index 21.4 Appearance: Alert. Oriented X3. No acute distress. Eyes: Pupils equal, round and reactive to light. ENT: Pharynx normal. Neck: Normal inspection. Neck supple. No lymph nodes noted. No crepitus CVS: Normal heart rate and rhythm. Pulses normal. Normal S1 and S2 Respiratory: No respiratory distress. Breath sounds normal. No Wheezing. No rales Abdomen: Soft and nontender. No rigidity. No distention. good BS x4 Skin: Skin warm and dry. Normal skin color. Normal skin turgor. Extremities: No lower extremity edema. No lower extremity edema. No Lacerations. No Rash Neuro: Oriented X 3. No motor deficit. No sensory deficit. Moving all extermities. No slurred speech. Course Course Course Narrative: Patient claims that she took 15-20 tablets of Seroquel, this happened approximately at 15:00, at this time, 17:30, patient is asymptomatic, not somnolent, does not feel sleepy. Labs pending. Patient states that she took all this medication at 15:00, per EMS, she told them that this happened at 04:30 p.m. Notes a p.m., patient remains completely awake, not somnolent at all, it is possible the patient may not have taken as many tablets of Seroquel as she states. Patient's LFTs, acetaminophen and salicylates are negative. Urinalysis positive for cocaine. EKG no changes. Patient is medically cleared to receive a [facility]. EKG: Heart rate 73, normal sinus rhythm, QTC 453, no ST segment depressions or elevations, no T-wave inversions MDM - Psych Restraints Face to Face Assessment: Face to Face Assessment: Current Situation: After assessment of the patient, a review of the pertinent medical record and a discussion with nursing staff, I feel the patient requires a restrain intervention. Reaction To: [] Medical Condition: [] Behavioral State: [] Continued Need: [] Lab Data Result diagrams: 05/27/20 17:59 05/27/20 17:58 Labs: Lab Results 05/27/20 05/27/20 05/27/20 Range/Units 17:26 17:26 17:58 WBC (4.8-10.8) X10*3/uL RBC (4.20-5.50) X10*6/uL Hgb (12.0-16.0) g/dl Hct (37-47) % MCV (80-98) fL MCH (27.0-33.0) pg MCHC (31.0-35.0) g/dl RDW (11.0-16.0) % Plt Count (160-400) X10*3/uL MPV (9.4-12.3) fL Immature Gran % (Auto) (0.0-0.4) % Neut % (Auto) (45-73) % Lymph % (Auto) (20-40) % [place] % (Auto) (2-11) % Eos % (Auto) (0-4) % Baso % (Auto) (0-2) % Lymph # (Auto) (1.2-4.9) X10*3/uL [place] # (Auto) (0.1-1.2) X10*3/uL Eos # (Auto) (0.0-0.4) X10*3/uL Baso # (Auto) (0.0-0.2) X10*3/uL Abs Immat Gran (auto) (0.00-0.03) X10*3/uL Absolute Neuts (auto) (2.0-8.3) X10*3/uL Absolute Nucleated RBC (0.0-0.012) X10*3/uL Nucleated RBC % (auto) (0.0-0.2) /100WBC Sodium 141 (135-145) mmol/L Potassium 3.7 (3.3-5.1) mmol/l Chloride 105 (96-108) mmol/L Carbon Dioxide 27 (22-29) mmol/L Anion Gap 13 (12-20) BUN 12 D (9-16) mg/dL Creatinine 0.67 (0.5-1.4) mg/dL Estim Creat Clear Calc 86.7 Estimated GFR > 60 Random Glucose 81 (60-115) mg/dL Calcium 9.2 (8.4-10.2) mg/dL Total Bilirubin 0.2 (0.0-1.0) mg/dL Direct Bilirubin < 0.2 (0.0-0.5) mg/dL AST 14 (5-31) U/L ALT 11 (0-31) U/L Alkaline Phosphatase 88 (39-117) U/L Total Protein 7.5 (6.5-8.0) g/dL Albumin 4.3 (3.5-5.0) g/dL Urine Color STRAW Urine Appearance CLEAR Urine pH 6.0 (5.0-8.0) Ur Specific [place] <= 1.005 (1.005-1.025) Urine Protein NEG (NEG-TRACE) MG/DL Urine Glucose (UA) NEG (NEG) MG/DL Urine Ketones NEG (NEG) MG/DL Urine Blood NEG (NEG) Urine Nitrite NEG (NEG) Ur Leukocyte Esterase NEG (NEG) Urine Test NEGATIVE (NEGATIVE) Salicylates (15-30) mg/dL Urine Opiates Screen Not Detected (Not Detect) Acetaminophen (<30) mcg/mL Ur Barbiturates Screen Not Detected (Not Detect) Ur Phencyclidine Scrn Not Detected (Not Detect) Ur Amphetamines Screen Not Detected (Not Detect) U Benzodiazepines Scrn Not Detected (Not Detect) Urine Cocaine Screen POSITIVE H (Not Detect) U Marijuana (THC) Screen Not Detected (Not Detect) COVID-19 (SAMANTHA) (Negative) COVID-19 Clin Com 05/27/20 05/27/20 05/27/20 Range/Units 17:59 17:59 18:24 WBC 5.4 (4.8-10.8) X10*3/uL RBC 4.19 L (4.20-5.50) X10*6/uL Hgb 11.9 L (12.0-16.0) g/dl Hct 36.7 L (37-47) % MCV 87.6 (80-98) fL MCH 28.4 (27.0-33.0) pg MCHC 32.4 (31.0-35.0) g/dl RDW 16.4 H (11.0-16.0) % Plt Count 234 D (160-400) X10*3/uL MPV 11.3 (9.4-12.3) fL Immature Gran % (Auto) 0.2 (0.0-0.4) % Neut % (Auto) 60.9 (45-73) % Lymph % (Auto) 31.8 (20-40) % [place] % (Auto) 6.9 (2-11) % Eos % (Auto) 0.0 (0-4) % Baso % (Auto) 0.2 (0-2) % Lymph # (Auto) 1.7 (1.2-4.9) X10*3/uL [place] # (Auto) 0.4 (0.1-1.2) X10*3/uL Eos # (Auto) 0.0 (0.0-0.4) X10*3/uL Baso # (Auto) 0.0 (0.0-0.2) X10*3/uL Abs Immat Gran (auto) 0.01 (0.00-0.03) X10*3/uL Absolute Neuts (auto) 3.3 (2.0-8.3) X10*3/uL Absolute Nucleated RBC 0.000 (0.0-0.012) X10*3/uL Nucleated RBC % (auto) 0.0 (0.0-0.2) /100WBC Sodium (135-145) mmol/L Potassium (3.3-5.1) mmol/l Chloride (96-108) mmol/L Carbon Dioxide (22-29) mmol/L Anion Gap (12-20) BUN (9-16) mg/dL Creatinine (0.5-1.4) mg/dL Estim Creat Clear Calc Estimated GFR Random Glucose (60-115) mg/dL Calcium (8.4-10.2) mg/dL Total Bilirubin (0.0-1.0) mg/dL Direct Bilirubin (0.0-0.5) mg/dL AST (5-31) U/L ALT (0-31) U/L Alkaline Phosphatase (39-117) U/L Total Protein (6.5-8.0) g/dL Albumin (3.5-5.0) g/dL Urine Color Urine Appearance Urine pH (5.0-8.0) Ur Specific [place] (1.005-1.025) Urine Protein (NEG-TRACE) MG/DL Urine Glucose (UA) (NEG) MG/DL Urine Ketones (NEG) MG/DL Urine Blood (NEG) Urine Nitrite (NEG) Ur Leukocyte Esterase (NEG) Urine Test (NEGATIVE) Salicylates < 5.0 L (15-30) mg/dL Urine Opiates Screen (Not Detect) Acetaminophen < 1 (<30) mcg/mL Ur Barbiturates Screen (Not Detect) Ur Phencyclidine Scrn (Not Detect) Ur Amphetamines Screen (Not Detect) U Benzodiazepines Scrn (Not Detect) Urine Cocaine Screen (Not Detect) U Marijuana (THC) Screen (Not Detect) COVID-19 (SAMANTHA) Negative (Negative) COVID-19 Clin Com See Note Discharge Plan Discharge Prescriptions: No Action albuterol sulfate [Ventolin HFA] 90 mcg/actuation Hfa Aerosol Inhaler 2 puff inhalation Q4H PRN (Reason: Shortness Of Breath) 30 Days Qty: 2 RF: 0 quetiapine [Seroquel] 200 mg tablet 200 mg PO BEDTIME 30 Days Qty: 30 RF: 0 clonazepam 1 mg Tablet 0.5 mg PO BID PRN (Reason: anxiety) 30 Days Qty: 60 RF: 0 venlafaxine 150 mg Capsule,Extended Release 24hr 300 mg PO DAILY 30 Days Qty: 60 RF: 0 quetiapine 50 mg Tablet 50 mg PO TID PRN (Reason: Anxiety) 30 Days Qty: 90 RF: 0 Narcan 4 mg/actuation [place],Non-Aerosol 4 mg intranasal (ALT) ONCE PRN (Reason: opioid overdose) 1 Days Qty: 1 RF: 0 zolpidem [Ambien] 10 mg Tablet 10 mg PO BEDTIME PRN (Reason: Insomnia) 30 Days Qty: 30 RF: 0 doxycycline hyclate 100 mg tablet 100 mg PO BID 7 Days Qty: 14 RF: 0
--- NOTE | 2020-05-27 17:43 | PC.NURSE ---
Called poison control- recommended basic labs, charcoal, ekg, and close CMS monitoring. Dr. Lai jacobsen. Called N for dispo ( pt sectioned by [facility] in community)- awaiting call back from communications supervisor.
--- NOTE | 2020-05-27 17:46 | PC.NURSE ---
Per [facility]- pt needs to be medically cleared and then assessed by [facility]. Provider aware
[2020-05-27 18:04] LABS: UPreg QC Valid YES; Urine Pregnancy NEGATIVE (NEGATIVE)
[2020-05-27 18:05] LABS: Basophils Percent Auto 0.2 % (0-2); Hematocrit 36.7 % (37-47); Hemoglobin 11.9 g/dl (12.0-16.0); Imm Gran Abs Auto 0.01 X10*3/uL (0.00-0.03); Imm Gran Pct Auto 0.2 % (0.0-0.4); Lymphocytes Absolute Auto 1.7 X10*3/uL (1.2-4.9); Lymphocytes Percent Auto 31.8 % (20-40); MANUAL DIFF FLAG NO; Mean Corpuscular HGB Conc 32.4 g/dl (31.0-35.0); Mean Corpuscular Hemoglobin 28.4 pg (27.0-33.0); Mean Corpuscular Volume 87.6 fL (80-98); Mean Platelet Volume 11.3 fL (9.4-12.3); Monocytes Absolute Auto 0.4 X10*3/uL (0.1-1.2); Monocytes Percent Auto 6.9 % (2-11); Neutrophils Absolute Auto 3.3 X10*3/uL (2.0-8.3); Neutrophils Percent Auto 60.9 % (45-73); Platelet Count 234 X10*3/uL (160-400); Red Blood Count 4.19 X10*6/uL (4.20-5.50); Red Cell Distribution Width 16.4 % (11.0-16.0); White Blood Count 5.4 X10*3/uL (4.8-10.8)
[2020-05-27 18:07] LABS: Glucose Urine UA NEG (NEG); Leukocyte Esterase Urine NEG (NEG); Nitrite Urine NEG (NEG); Specific Gravity - Urine <= 1.005 (1.005-1.025); Urine Blood NEG (NEG); Urine Ketones NEG (NEG); Urine Protein NEG (NEG-TRACE)
[2020-05-27 18:13] LABS: Appearance Urine CLEAR; Color Urine STRAW
[2020-05-27 18:22] LABS: Amphetamine Screen Urine Not Detected (Not Detect); Barbiturates, Urine Not Detected (Not Detect); Benzodiazepines Screen Urine Not Detected (Not Detect); Cannabinoid Screen Urine Not Detected (Not Detect); Cocaine Screen Urine POSITIVE (Not Detect); Opiate Screen Urine Not Detected (Not Detect); Phencyclidine Screen Urine Not Detected (Not Detect)
[2020-05-27 18:33] VITALS: BP 95/64; PULSE 88
[2020-05-27 18:35] LABS: Alanine Aminotransferase 11 U/L (0-31); Albumin Level 4.3 g/dL (3.5-5.0); Alkaline Phosphatase 88 U/L (39-117); Anion Gap 13 (12-20); Aspartate Amino Transferase 14 U/L (5-31); Bilirubin Direct < 0.2 mg/dL (0.0-0.5); Bilirubin Total 0.2 mg/dL (0.0-1.0); Blood Urea Nitrogen 12 mg/dL (9-16); Calcium 9.2 mg/dL (8.4-10.2); Carbon Dioxide 27 mmol/L (22-29); Chloride 105 mmol/L (96-108); Creatinine Clr Calc Pharmacy 86.7; Estimated Glomerular Filt Rate > 60; Glucose Random 81 mg/dL (60-115); Potassium 3.7 mmol/l (3.3-5.1); Sodium 141 mmol/L (135-145); Total Protein 7.5 g/dL (6.5-8.0)
[2020-05-27 18:39] LABS: Salicylate < 5.0 mg/dL (15-30)
[2020-05-27 18:40] LABS: Acetaminophen LAB < 1 mcg/mL (<30)
[2020-05-27 19:05] LABS: COVID-19 Test Negative (Negative)
[2020-05-27 20:00] VITALS: BP 94/60; PULSE 94; RESP 21; O2SAT 97
--- NOTE | 2020-05-27 20:47 | PC.NURSE ---
[facility] was faxed with patient information for consult.
--- NOTE | 2020-05-27 22:24 | PC.NURSE ---
PHONE CALL FROM POISON CONTROL LOOKING FOR UPDATE ON PATIENT'S VSS AND RESULTS OF EKG. ECONOMETRICS PROFESSOR STATED THAT IT IS USUALLY 6 HRS. EKG TO BE REPEATED AT MIDNIGHT.
[2020-05-27 23:56] VITALS: BP 90/55; PULSE 84; RESP 18; TEMP 36.6; O2SAT 98
[2020-05-28] MEDS: clonazePAM 1 MG TABLET PO ×2 (03:18→21:05)
[2020-05-28 06:06] LABS: Glucose, Whole Blood 172 mg/dL (60-115)
[2020-05-28 10:09] VITALS: PULSE 78; RESP 18; O2SAT 99
[2020-05-28] MEDS: Albuterol Sulfate 90 MCG 8 GM INHALER 2 PUFF INHALE (10:31)
[2020-05-28] MEDS: clonazePAM 1 MG TABLET 0.5 MG PO (10:32)
--- NOTE | 2020-05-28 12:11 | PC.NURSE ---
Called N for update, PT continues to be a bed search, currently section 12 in ED. will continue to monitor.
[2020-05-28] MEDS: clonazePAM 0.5 MG TABLET PO (13:15)
--- NOTE | 2020-05-28 14:07 | PC.NURSE ---
PT STANDING IN HER ROOM DOOR, SHE IS SPEAKING WITH MYRON FROM CARE TEAM EXPRESSING HER LEVEL OF AGGITAION AND LACK OF PATIENTS WITH BEING IN THE ED. SHE IS CURRENTLY REDIRECTABLE
--- NOTE | 2020-05-28 14:33 | PC.NURSE ---
Report received. Pt ambulated to pod with steady gait, irritable. Pt is inpatient bedsearch.
[2020-05-28 16:01] VITALS: BP 105/55; PULSE 65; RESP 15; TEMP 36.8; O2SAT 98
--- NOTE | 2020-05-28 19:27 | PC.NURSE ---
Report received. PT is resting in bed quietly. Calm and cooperative. Inpatient bed search.
[2020-05-28] MEDS: Zolpidem Tartrate 5 MG TABLET 10 MG PO (20:57)
[2020-05-28 21:01] VITALS: BP 121/80; PULSE 71; RESP 16; TEMP 36.6; O2SAT 98
--- NOTE | 2020-05-28 21:11 | PC.NURSE ---
PULLED 1MG ATIVAN TAB UNDER 0.5MG ORDER. THEN PROVIDER ORDERED 1MG DOSE. GIVEN FROM THIS TAB THAT HAD ALREADY HAD HALF TAB WASTED IN PYXIS. WASTED IN PYXIS WITH JOHNNY RN TO CLEAR UNDOCUMENTED WASTE.
[2020-05-28] MEDS: QUEtiapine Fumarate 200 MG TABLET PO (21:23)
[2020-05-29 06:00] VITALS: BP 115/73; PULSE 78; RESP 18; TEMP 37.1; O2SAT 96
--- NOTE | 2020-05-29 07:08 | PC.NURSE ---
report taken from niya pierre pt here for si attempt, sec 12 inpt bed search. appears to be sleeping in bed att, rr even/unlabored. wctm.
[2020-05-29] MEDS: Venlafaxine HCl ER 150 MG CAP.ER.24H 300 MG PO (08:56)
[2020-05-29] MEDS: clonazePAM 1 MG TABLET 0.5 MG PO (08:58)
[2020-05-29 09:01] VITALS: BP 98/62; PULSE 74; TEMP 36.8; O2SAT 96
--- NOTE | 2020-05-29 09:15 | PC.NURSE ---
pt updated that [facility] clinician will speak w pt sometime late morning.
--- NOTE | 2020-05-29 10:01 | PC.NURSE ---
pt hanging out in [place] [facility] area conversing w pts and staff, pleasent affect. awaiting crisis.
[2020-05-29] MEDS: Albuterol Sulfate 90 MCG 8 GM INHALER 2 PUFF INHALE (10:51)
[2020-05-29] MEDS: QUEtiapine Fumarate 50 MG TABLET PO (12:24)
--- NOTE | 2020-05-29 12:30 | PC.NURSE ---
pt given prn anxiety med per request.
== END 2020-05-29 15:05 | disposition home or self-care (01) ==
PROVIDERS: Emergency Provider Emergency Medicine
DX: T43.591A Poisoning by other antipsychotics and neuroleptics, accidental (unintentional), initial encounter (principal); Y92.9 Unspecified place or not applicable; F32.9 Major depressive disorder, single episode, unspecified; Z20.822 Contact with and (suspected) exposure to COVID-19; F14.90 Cocaine use, unspecified, uncomplicated; F11.90 Opioid use, unspecified, uncomplicated; F17.210 Nicotine dependence, cigarettes, uncomplicated
CPT/HCPCS: 36415; 80048; 80076; 80307; 81003; 81025; 82947; 85025; 87635; 93005; 99285; G0480

== ENCOUNTER 2020-07-19 11:00 | Emergency (ER) | payer OTHER, SELFPAY ==
--- NOTE | ~2020-07-19 | XR_ITS ---
EXAMINATION: XR CHEST CLINICAL INFORMATION: SOB COMPARISON: None TECHNIQUE: Frontal view of the chest was obtained. FINDINGS: No significant abnormality is noted involving the heart, lungs, mediastinum, bony thorax or soft tissues. XR/XR chest 1V IMPRESSION: Unremarkable chest examination.
--- NOTE | ~2020-07-19 | CT_ITS ---
EXAMINATION: CT ANGIOGRAM OF THE CHEST WITH AND WITHOUT CONTRAST (CT PULMONARY ANGIOGRAM FOR PE) CLINICAL INFORMATION: Reason for Exam ? PE COMPARISON: Chest x-ray performed earlier same day TECHNIQUE: Prior to contrast administration, noncontrast localization images were obtained. Subsequently, multidetector volumetric imaging was performed from the thoracic inlet to below the diaphragms following the administration of 80 mL Omnipaque 350 intravenous contrast. No contrast reaction reported Sagittal, coronal, and MIP oblique sagittal reformatted images were obtained on the CT workstation, uploaded to PACS, and reviewed. This CT examination was performed using dose optimization techniques as appropriate, variously including the following: *Automated exposure control *Adjustment of mA and/or kV according to patient size (this includes techniques or standardized protocols for targeted exams where dose is matched to indication/reason for exam; i.e. extremities or head) *Use of iterative reconstruction technique Total exam dose-length product 200 mGy-cm FINDINGS: QUALITY OF STUDY/CONTRAST BOLUS: Satisfactory. PULMONARY ARTERIES: No central or segmental pulmonary emboli. THORACIC AORTA: No aneurysm or dissection. LUNG: There is some minimal linear opacity in the lingula and left lower lobe compatible discoid atelectasis or scarring. PLEURA: No pleural effusion or pneumothorax. MEDIASTINUM: Normal heart size. No pericardial effusion. No hilar or mediastinal lymphadenopathy. No evidence of septal bowing or right heart strain. CHEST WALL/AXILLA: No axillary or internal mammary lymphadenopathy. OSSEOUS STRUCTURES: No acute or suspicious osseous abnormality. UPPER ABDOMEN: Unremarkable. No reflux of contrast into the hepatic veins to suggest elevated right heart pressures. CT/CT angio chest PE protocol IMPRESSION: No evidence for pulmonary embolism. Minimal discoid atelectasis or scarring in the left lung VTE: negative
[2020-07-19 11:07] VITALS: BP 114/69; PULSE 75; RESP 18; TEMP 36.9; O2SAT 99; BMI 26.5
[2020-07-19 11:13] VITALS: BP 123/64; PULSE 73; RESP 16; TEMP 37.2; O2SAT 97
--- NOTE | 2020-07-19 11:39 | ECG_ITS ---
Test Reason : CHF Blood Pressure : / mmHG Vent. Rate : 063 BPM Atrial Rate : 063 BPM P-R Int : 164 ms QRS Dur : 094 ms QT Int : 434 ms P-R-T Axes : -06 025 019 degrees QTc Int : 444 ms Normal sinus rhythm Normal ECG When compared with ECG of 27-MAY-2020 17:51, No significant change was found Referred By: Chelsea Mendez Electronically Signed By:CHADWICK CARIAS MD
--- NOTE | 2020-07-19 12:03 | ED_ITS ---
HPI - SOB/Dyspnea General Chief Complaint: Dyspnea Stated Complaint: SOB Time Seen by Provider: 07/19/20 11:39 History of Present Illness HPI Narrative: Patient is a 50-year-old female presented today with having shortness of breath. Patient has small amount of leg swelling. Also compla ining of generalized malaise weakness. Patient denies any chest pain. Has pain to her rib area on the right posterior back. Patient has no spinal pain. Patient has a history of using cocaine. History of using heroin IV. No history of diabetes, hypertension, mi, family history of NC. positive coughing positive congestion. Patient went to see urgent care. Did not want to come in yesterday. Came back in today because of shortness of breath. No travel history. No history of blood clots. The leg swelling is bilateral. Patient denies any diaphoresis. Patient have not received the coronavirus vaccine Related Data Home Medications Medication Instructions Recorded Confirmed clonazepam 1 mg PO BEDTIME 05/28/20 05/28/20 Previous Rx's Medication Instructions Recorded Narcan 4 mg INTRANASAL (ALT) ONCE PRN 1 03/15/20 Days #1 ea albuterol sulfate [Ventolin HFA] 2 puff INHALATION Q4H PRN 30 Days 03/15/20 #2 g clonazepam 0.5 mg PO BID PRN 30 Days #60 tab 03/15/20 quetiapine 50 mg PO TID PRN 30 Days #90 tab 03/15/20 quetiapine [Seroquel] 200 mg PO BEDTIME 30 Days #30 tab 03/15/20 venlafaxine 300 mg PO DAILY 30 Days #60 cap 03/15/20 zolpidem [Ambien] 10 mg PO BEDTIME PRN 30 Days #30 03/15/20 tab ibuprofen 400 mg PO Q6H PRN #20 tab 07/19/20 Allergies Allergy/AdvReac Type Severity Reaction Status Date / Time trazodone [TRAZODONE] Allergy Severe SHORTNESS Verified 04/10/20 13:21 OF BREATH, GASPING FOR AIR , SOB aspirin [ASPIRIN] Allergy Unknown STOMACH Verified 04/10/20 13:21 UPSET, Nausea, nausa ciprofloxacin [Cipro] Allergy Unknown Rash Verified 04/10/20 13:21 promethazine [Phenergan] Allergy Unknown Hives Verified 04/10/20 13:21 Sulfa (Sulfonamide Allergy Unknown Unknown Verified 04/10/20 13:21 Antibiotics) Review of Systems Review of Systems: Constitutional: No Weight loss, No Fever, No Chills, No Night Sweats, No Fatigue, No Malaise ENT/Mouth: No Hearing loss, No Ear Pain, No Nasal Congestion, No Sinus Pain, No Hoarseness, No sore throat, No Rhinorrhea, No Swallowing Difficulty Eyes: No Eye Pain, No Swelling, No Redness, No Foreign Body, No Discharge, No Vision Changes Cardiovascular: No Chest Pain, No SOB, No Dyspnea on Exertion, No Orthopnea, No Edema, No Palpitations Respiratory: Positive shortness of breath positive coughing Gastrointestinal: No Nausea, No Vomiting, No Diarrhea, No Constipation, No abdominal Pain, No Hematochezia, No Melena Genitourinary: no irregular bleeding, No Dysuria, No Urinary Frequency, No Hematuria, No Urinary Incontinence, No Urgency, No Flank Pain, No Urinary Flow Changes, No Hesitancy Musculoskeletal: No joint pain, No Myalgias, No Joint Swelling Skin: No Skin Lesions, No rash Neuro: No Weakness, No Numbness, No Paresthesias, No Loss of Consciousness, No Dizziness, No Headache Psych: No Anxiety/Panic, No Depression, No SI/HI/AH/VH, No Social Issues, Heme/Lymph: No Bruising, No Bleeding,No Lymphadenopathy Endocrine: No Polyuria, No Polydipsia, No Temperature Intolerance [facility] Past Medical History Medical History Asthma Cocaine use disorder, moderate, dependence Major depression, recurrent Opioid use disorder, severe, dependence Post traumatic stress disorder Social History Social History Household Members: None Housing: Apartment 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: current 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 frequency: holidays/special occasions only Alcohol type: wine Smoking Status: Current some day smoker Tobacco Type: Cigarette Packs Per Day: 0 Cigarettes Per Day: 10 Years Smoked: whole life Smoked in Last 30 Days: Yes Second Hand Smoke Exposure: Yes Use of substances other than those prescribed or required for medical reasons: Yes Substance Use Type: Crack/Cocaine, Heroin and Marijuana Substance Use Frequency: Occasionally Last Used Substance: Days (ago) Any prior treatment program specific to substance use: Yes Advance Directives: No Advance Directives Information Provided: No service: No Current occupational status: disabled Sexual orientation: Straight/Heterosexual Physical Exam Vital Signs: Vital Signs: Last Vital Signs Temp 99.0 F 07/19/20 11:13 Pulse 64 07/19/20 14:22 Resp 15 07/19/20 14:22 BP 117/77 07/19/20 14:22 Pulse Ox 96 07/19/20 14:22 Body Mass Index 26.5 Appearance: Alert. Oriented X3. No acute distress. Eyes: Pupils equal, round and reactive to light. ENT: Pharynx normal. Neck: Normal inspection. Neck supple. No lymph nodes noted. No crepitus CVS: Normal heart rate and rhythm. Pulses normal. Normal S1 and S2 Respiratory: No respiratory distress. Breath sounds normal. No Wheezing. No rales Abdomen: Soft and nontender. No rigidity. No distention. good BS x4 Skin: Skin warm and dry. Normal skin color. Normal skin turgor. Extremities: No lower extremity edema. Neurovascular intact to all extremities. No Lacerations. No Rash Neuro: Oriented X 3. No motor deficit. No sensory deficit. Moving all extermities. No slurred speech No spinal tenderness elicited on palpation. MDM - SOB/Dyspnea MDM Narrative Medical decision making narrative: Patient's D-dimer was elevated. Based CTA of the chest was done is grossly negative for any acute evidence of pulmonary emboli. There is no rib fracture noted. Patient's electrolytes unremarkable. Patient's white count is normal. Told to stop using recreational drugs. Currently in stable condition. Will discharge home. Patient's EKG was also normal. Lab Data Result diagrams: 07/19/20 12:39 07/19/20 12:39 Labs: Lab Results 07/19/20 07/19/20 07/19/20 Range/Units 12:39 12:39 12:39 WBC 4.1 L (4.8-10.8) X10*3/uL RBC 3.49 L (4.20-5.50) X10*6/uL Hgb 9.9 L (12.0-16.0) g/dl Hct 31.2 L (37-47) % MCV 89.4 (80-98) fL MCH 28.4 (27.0-33.0) pg MCHC 31.7 (31.0-35.0) g/dl RDW 16.2 H (11.0-16.0) % Plt Count 192 (160-400) X10*3/uL MPV 12.0 (9.4-12.3) fL Immature Gran % (Auto) 0.2 (0.0-0.4) % Neut % (Auto) 48.4 (45-73) % Lymph % (Auto) 34.5 (20-40) % [place] % (Auto) 16.7 H (2-11) % Eos % (Auto) 0.0 (0-4) % Baso % (Auto) 0.2 (0-2) % Lymph # (Auto) 1.4 (1.2-4.9) X10*3/uL [place] # (Auto) 0.7 (0.1-1.2) X10*3/uL Eos # (Auto) 0.0 (0.0-0.4) X10*3/uL Baso # (Auto) 0.0 (0.0-0.2) X10*3/uL Abs Immat Gran (auto) 0.01 (0.00-0.03) X10*3/uL Absolute Neuts (auto) 2.0 (2.0-8.3) X10*3/uL Absolute Nucleated RBC 0.000 (0.0-0.012) X10*3/uL Nucleated RBC % (auto) 0.0 (0.0-0.2) /100WBC ESR 42 H (0-20) MM/HR D-Dimer Cancelled Hold Blue Top Cancelled Sodium (135-145) mmol/L Potassium (3.3-5.1) mmol/L Chloride (96-108) mmol/L Carbon Dioxide (22-29) mmol/L Anion Gap (12-20) BUN (9-16) mg/dL Creatinine (0.5-1.4) mg/dL Estim Creat Clear Calc Estimated GFR Random Glucose (60-115) mg/dL Calcium (8.4-10.2) mg/dL Total Bilirubin (0.0-1.0) mg/dL Direct Bilirubin (0.0-0.5) mg/dL AST (5-31) U/L ALT (0-31) U/L Alkaline Phosphatase (39-117) U/L Troponin I High Sens (<3.5-17.0) ng/L C-Reactive Protein (< or = 0.50) mg/dL B-Natriuretic Peptide (<100) pg/mL Total Protein (6.5-8.0) g/dL Albumin (3.5-5.0) g/dL Urine Color Urine Appearance Urine pH (5.0-8.0) Ur Specific [place] (1.005-1.025) Urine Protein (NEG-TRACE) MG/DL Urine Glucose (UA) (NEG) MG/DL Urine Ketones (NEG) MG/DL Urine Blood (NEG) Urine Nitrite (NEG) Ur Leukocyte Esterase (NEG) Urine RBC (0) /HPF Urine WBC (0-4) /HPF Ur Squamous Epith Cells /LPF Urine Bacteria /LPF Urine Mucus /LPF 07/19/20 07/19/20 07/19/20 Range/Units 12:39 12:39 13:11 WBC (4.8-10.8) X10*3/uL RBC (4.20-5.50) X10*6/uL Hgb (12.0-16.0) g/dl Hct (37-47) % MCV (80-98) fL MCH (27.0-33.0) pg MCHC (31.0-35.0) g/dl RDW (11.0-16.0) % Plt Count (160-400) X10*3/uL MPV (9.4-12.3) fL Immature Gran % (Auto) (0.0-0.4) % Neut % (Auto) (45-73) % Lymph % (Auto) (20-40) % [place] % (Auto) (2-11) % Eos % (Auto) (0-4) % Baso % (Auto) (0-2) % Lymph # (Auto) (1.2-4.9) X10*3/uL [place] # (Auto) (0.1-1.2) X10*3/uL Eos # (Auto) (0.0-0.4) X10*3/uL Baso # (Auto) (0.0-0.2) X10*3/uL Abs Immat Gran (auto) (0.00-0.03) X10*3/uL Absolute Neuts (auto) (2.0-8.3) X10*3/uL Absolute Nucleated RBC (0.0-0.012) X10*3/uL Nucleated RBC % (auto) (0.0-0.2) /100WBC ESR (0-20) MM/HR D-Dimer Hold Blue Top Sodium 140 (135-145) mmol/L Potassium 3.9 (3.3-5.1) mmol/L Chloride 106 (96-108) mmol/L Carbon Dioxide 27 (22-29) mmol/L Anion Gap 11 L (12-20) BUN 19 H D (9-16) mg/dL Creatinine 0.72 (0.5-1.4) mg/dL Estim Creat Clear Calc 86.5 Estimated GFR > 60 Random Glucose 112 D (60-115) mg/dL Calcium 9.2 (8.4-10.2) mg/dL Total Bilirubin 0.2 (0.0-1.0) mg/dL Direct Bilirubin < 0.2 (0.0-0.5) mg/dL AST 22 D (5-31) U/L ALT 13 (0-31) U/L Alkaline Phosphatase 89 (39-117) U/L Troponin I High Sens < 3.5 (<3.5-17.0) ng/L C-Reactive Protein 2.92 H (< or = 0.50) mg/dL B-Natriuretic Peptide 28 (<100) pg/mL Total Protein 6.7 (6.5-8.0) g/dL Albumin 3.8 (3.5-5.0) g/dL Urine Color YELLOW Urine Appearance HAZY Urine pH 5.5 (5.0-8.0) Ur Specific [place] >= 1.030 H (1.005-1.025) Urine Protein NEG (NEG-TRACE) MG/DL Urine Glucose (UA) NEG (NEG) MG/DL Urine Ketones NEG (NEG) MG/DL Urine Blood 2+ H (NEG) Urine Nitrite NEG (NEG) Ur Leukocyte Esterase NEG (NEG) Urine RBC 1-4 (0) /HPF Urine WBC 0 (0-4) /HPF Ur Squamous Epith Cells 1+ /LPF Urine Bacteria NONE /LPF Urine Mucus TRACE /LPF 03/12/21 Range/Units 14:18 WBC (4.8-10.8) X10*3/uL RBC (4.20-5.50) X10*6/uL Hgb (12.0-16.0) g/dl Hct (37-47) % MCV (80-98) fL MCH (27.0-33.0) pg MCHC (31.0-35.0) g/dl RDW (11.0-16.0) % Plt Count (160-400) X10*3/uL MPV (9.4-12.3) fL Immature Gran % (Auto) (0.0-0.4) % Neut % (Auto) (45-73) % Lymph % (Auto) (20-40) % [place] % (Auto) (2-11) % Eos % (Auto) (0-4) % Baso % (Auto) (0-2) % Lymph # (Auto) (1.2-4.9) X10*3/uL [place] # (Auto) (0.1-1.2) X10*3/uL Eos # (Auto) (0.0-0.4) X10*3/uL Baso # (Auto) (0.0-0.2) X10*3/uL Abs Immat Gran (auto) (0.00-0.03) X10*3/uL Absolute Neuts (auto) (2.0-8.3) X10*3/uL Absolute Nucleated RBC (0.0-0.012) X10*3/uL Nucleated RBC % (auto) (0.0-0.2) /100WBC ESR (0-20) MM/HR D-Dimer 388 Hold Blue Top Sodium (135-145) mmol/L Potassium (3.3-5.1) mmol/L Chloride (96-108) mmol/L Carbon Dioxide (22-29) mmol/L Anion Gap (12-20) BUN (9-16) mg/dL Creatinine (0.5-1.4) mg/dL Estim Creat Clear Calc Estimated GFR Random Glucose (60-115) mg/dL Calcium (8.4-10.2) mg/dL Total Bilirubin (0.0-1.0) mg/dL Direct Bilirubin (0.0-0.5) mg/dL AST (5-31) U/L ALT (0-31) U/L Alkaline Phosphatase (39-117) U/L Troponin I High Sens (<3.5-17.0) ng/L C-Reactive Protein (< or = 0.50) mg/dL B-Natriuretic Peptide (<100) pg/mL Total Protein (6.5-8.0) g/dL Albumin (3.5-5.0) g/dL Urine Color Urine Appearance Urine pH (5.0-8.0) Ur Specific [place] (1.005-1.025) Urine Protein (NEG-TRACE) MG/DL Urine Glucose (UA) (NEG) MG/DL Urine Ketones (NEG) MG/DL Urine Blood (NEG) Urine Nitrite (NEG) Ur Leukocyte Esterase (NEG) Urine RBC (0) /HPF Urine WBC (0-4) /HPF Ur Squamous Epith Cells /LPF Urine Bacteria /LPF Urine Mucus /LPF ECG Data Interpretation: EKG showed a heart rate of 60 VT QRS QT within normal limits is no acute ST segment elevation noted. Discharge Plan Discharge Clinical Impression: Chest wall pain, Substance abuse Patient Disposition: Home, Self-Care Instructions: Polysubstance Abuse (ED), Chest Wall Pain (ED) Prescriptions: New ibuprofen 400 mg tablet 400 mg PO Q6H PRN (Reason: pain) Qty: 20 RF: 0 No Action albuterol sulfate [Ventolin HFA] 90 mcg/actuation Hfa Aerosol Inhaler 2 puff inhalation Q4H PRN (Reason: Shortness Of Breath) 30 Days Qty: 2 RF: 0 quetiapine [Seroquel] 200 mg tablet 200 mg PO BEDTIME 30 Days Qty: 30 RF: 0 clonazepam 1 mg Tablet 0.5 mg PO BID PRN (Reason: anxiety) 30 Days Qty: 60 RF: 0 venlafaxine 150 mg Capsule,Extended Release 24hr 300 mg PO DAILY 30 Days Qty: 60 RF: 0 quetiapine 50 mg Tablet 50 mg PO TID PRN (Reason: Anxiety) 30 Days Qty: 90 RF: 0 Narcan 4 mg/actuation [place],Non-Aerosol 4 mg intranasal (ALT) ONCE PRN (Reason: opioid overdose) 1 Days Qty: 1 RF: 0 zolpidem [Ambien] 10 mg Tablet 10 mg PO BEDTIME PRN (Reason: Insomnia) 30 Days Qty: 30 RF: 0 clonazepam 1 mg tablet 1 mg PO BEDTIME RF: 0 Referrals: Physician,None [Primary Care Provider] - 2 days
[2020-07-19 12:44] LABS: MANUAL DIFF FLAG NO
[2020-07-19 12:46] LABS: Basophils Percent Auto 0.2 % (0-2); Hematocrit 31.2 % (37-47); Hemoglobin 9.9 g/dl (12.0-16.0); Imm Gran Abs Auto 0.01 X10*3/uL (0.00-0.03); Imm Gran Pct Auto 0.2 % (0.0-0.4); Lymphocytes Absolute Auto 1.4 X10*3/uL (1.2-4.9); Lymphocytes Percent Auto 34.5 % (20-40); Mean Corpuscular HGB Conc 31.7 g/dl (31.0-35.0); Mean Corpuscular Hemoglobin 28.4 pg (27.0-33.0); Mean Corpuscular Volume 89.4 fL (80-98); Monocytes Absolute Auto 0.7 X10*3/uL (0.1-1.2); Monocytes Percent Auto 16.7 % (2-11); Neutrophils Percent Auto 48.4 % (45-73); Platelet Count 192 X10*3/uL (160-400); Red Blood Count 3.49 X10*6/uL (4.20-5.50); Red Cell Distribution Width 16.2 % (11.0-16.0); White Blood Count 4.1 X10*3/uL (4.8-10.8)
[2020-07-19 13:09] VITALS: BP 103/62; PULSE 64; RESP 17; O2SAT 96
[2020-07-19 13:22] LABS: Glucose Urine UA NEG (NEG); Leukocyte Esterase Urine NEG (NEG); Nitrite Urine NEG (NEG); PH 5.5 (5.0-8.0); Specific Gravity - Urine >= 1.030 (1.005-1.025); Urine Blood 2+ (NEG); Urine Ketones NEG (NEG); Urine Protein NEG (NEG-TRACE)
[2020-07-19 13:23] LABS: B Type Natriuretic Peptide 28 pg/mL (<100); Troponin-I High Sensitivity < 3.5 ng/L (<3.5-17.0)
[2020-07-19 13:24] LABS: Anion Gap 11 (12-20)
[2020-07-19 13:24] LABS: Appearance Urine HAZY; Color Urine YELLOW
[2020-07-19 13:25] LABS: Alanine Aminotransferase 13 U/L (0-31); Albumin Level 3.8 g/dL (3.5-5.0); Alkaline Phosphatase 89 U/L (39-117); Aspartate Amino Transferase 22 U/L (5-31); Bilirubin Direct < 0.2 mg/dL (0.0-0.5); Bilirubin Total 0.2 mg/dL (0.0-1.0); Blood Urea Nitrogen 19 mg/dL (9-16); C Reactive Protein 2.92 mg/dL (< or = 0.50); Calcium 9.2 mg/dL (8.4-10.2); Carbon Dioxide 27 mmol/L (22-29); Chloride 106 mmol/L (96-108); Creatinine Clr Calc Pharmacy 86.5; Estimated Glomerular Filt Rate > 60; Glucose Random 112 mg/dL (60-115); Potassium 3.9 mmol/L (3.3-5.1); Sodium 140 mmol/L (135-145); Total Protein 6.7 g/dL (6.5-8.0)
[2020-07-19 13:38] LABS: Mucus Urine TRACE /LPF; Squamous Epithelial Cell Urine 1+ /LPF; WBC Urine 0 /HPF (0-4)
[2020-07-19 13:52] LABS: Erythrocyte Sedimentation Rate 42 MM/HR (0-20)
[2020-07-19 14:22] VITALS: BP 117/77; PULSE 64; RESP 15; O2SAT 96
[2020-07-19 14:43] LABS: D Dimer 388 NG/ML
[2020-07-19] MEDS: iohexoL 350 MG/ML 100 ML INFUS..BTL IV (15:41)
[2020-07-19 15:43] LABS: Influenza A PCR NEGATIVE (Negative); Influenza B PCR NEGATIVE (Negative); Resp Syncy Virus RNA Qual PCR NEGATIVE (Negative); SARS COV2 PCR INHOUSE NEGATIVE (Negative)
== END 2020-07-19 16:51 | disposition home or self-care (01) ==
PROVIDERS: Emergency Provider Emergency Medicine Emergency Medical Services
DX: R07.89 Other chest pain (principal); F11.220 Opioid dependence with intoxication, uncomplicated; F14.20 Cocaine dependence, uncomplicated; F12.90 Cannabis use, unspecified, uncomplicated; F17.210 Nicotine dependence, cigarettes, uncomplicated
CPT/HCPCS: 0241U; 36415; 71045; 71275; 80048; 80076; 81001; 83880; 84484; 85025; 85379; 85652; 86140; 93005; 99284; Q9967

== ENCOUNTER 2020-09-20 11:40 | Inpatient (IN) | payer OTHER, SELFPAY ==
--- NOTE | ~2020-09-20 | XR_ITS ---
EXAMINATION: XR HAND, RIGHT CLINICAL INFORMATION: Pain and swelling. Rule out foreign body. COMPARISON: None TECHNIQUE: PA, lateral, and oblique views of the right hand. FINDINGS: There is mild loss of PIP and DIP joints all 5 digits without any visible fracture, dislocation or subluxation. There is periarticular spurring DIP joints 2nd through 5th digits. There is mild soft tissue swelling in the PIP joints of all digits. The MCP joint space is maintained normal. The intercarpal joint space is normal. XR/XR hand RT min 3V IMPRESSION: Mild degenerative changes PIP and DIP joints with mild soft tissue swelling. No visible acute fracture, dislocation or subluxation seen.
[2020-09-20 11:41] VITALS: BP 143/83; PULSE 76; RESP 18; TEMP 36.4; O2SAT 98; BMI 25.7
[2020-09-20 14:00] VITALS: BP 142/88; PULSE 74; RESP 18; O2SAT 98
--- NOTE | 2020-09-20 14:24 | ED_ITS ---
HPI - General Adult General Chief complaint: General Medical Stated complaint: R HAND SWELLING Time Seen by Provider: 09/20/20 12:56 Source: patient Mode of arrival: ambulatory Limitations: no limitations History of Present Illness HPI narrative: Patient presents to the ED for right hand swelling after IV cocaine was introdcued into right hand yesterday. patient states also feeling mailiase and feeling warm. Related Data Home Medications Medication Instructions Recorded Confirmed clonazepam 1 mg PO BEDTIME 05/28/20 09/20/20 albuterol sulfate [ProAir HFA] 2 puff INHALATION Q4H PRN 09/20/20 09/20/20 zolpidem [Ambien] 10 mg PO BEDTIME 09/20/20 09/20/20 Previous Rx's Medication Instructions Recorded Narcan 4 mg INTRANASAL (ALT) ONCE PRN 1 03/15/20 Days #1 ea clonazepam 0.5 mg PO BID PRN 30 Days #60 tab 03/15/20 quetiapine 50 mg PO TID PRN 30 Days #90 tab 03/15/20 quetiapine [Seroquel] 200 mg PO BEDTIME 30 Days #30 tab 03/15/20 venlafaxine 300 mg PO DAILY 30 Days #60 cap 03/15/20 Allergies Allergy/AdvReac Type Severity Reaction Status Date / Time trazodone [TRAZODONE] Allergy Severe SHORTNESS Verified 04/10/20 13:21 OF BREATH, GASPING FOR AIR , SOB aspirin [ASPIRIN] Allergy Unknown STOMACH Verified 04/10/20 13:21 UPSET, Nausea, nausa ciprofloxacin [Cipro] Allergy Unknown Rash Verified 04/10/20 13:21 promethazine [Phenergan] Allergy Unknown Hives Verified 04/10/20 13:21 Sulfa (Sulfonamide Allergy Unknown Unknown Verified 04/10/20 13:21 Antibiotics) Review of Systems Review of Systems: Yes all other systems are reviewed and are negative Constitutional: Constitutional: Reports as per HPI and Reports no additional constitutional complaints Eyes: Eyes: Reports as per HPI and Reports no additional eye complaints ENT: Reports system reviewed and no additional complaints, except as documented and Reports as per HPI Cardiovascular: Cardiovascular: Reports as per HPI and Reports no additional cardiovascular complaints Respiratory: Respiratory: Reports as per HPI and Reports no additional respiratory complaints Gastrointestinal: Gastrointestinal: Reports as per HPI and Reports no additional gastrointestinal complaints Genitourinary: Genitourinary: Reports no additional female genitourinary complaints and Reports as per HPI Musculoskeletal: Musculoskeletal: Reports no additional musculoskeletal complaints and Reports as per HPI Comments: Right hand swelling/redness on dorsal aspect of hand., Neurologic: Reports system reviewed and no additional complaints, except as documented and Reports as per HPI Psychiatric: Psychiatric: Reports no additional psychiatric complaints and Reports as per HPI [facility] Past Medical History Medical History Asthma Cocaine use disorder, moderate, dependence Major depression, recurrent Opioid use disorder, severe, dependence Post traumatic stress disorder Social History Social History Household Members: None Housing: Apartment 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: current 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 frequency: holidays/special occasions only Alcohol type: wine Smoking Status: Current some day smoker Tobacco Type: Cigarette Packs Per Day: 0 Cigarettes Per Day: 10 Years Smoked: whole life Second Hand Smoke Exposure: Yes Substance Use Type: Crack/Cocaine, Heroin and Marijuana Advance Directives: Yes Advance Directives Information Provided: Yes Advance Directives on File: No Patient : No service: No Current occupational status: disabled Sexual orientation: Straight/Heterosexual Physical Exam Vital Signs: Vital Signs: Last Vital Signs Temp 97.6 F 09/20/20 11:41 Pulse 74 09/20/20 14:00 Resp 18 09/20/20 14:00 BP 142/88 H 09/20/20 14:00 Pulse Ox 98 09/20/20 14:00 Body Mass Index 25.7 Const: General: cooperative, healthy appearing, comfortable, no acute distress, well developed, alert, awake and Physically active Orientation/consciousness: patient oriented x3 HENMT: Head: Yes normal to inspection, Yes No palpable skull fracture present, Yes normocephalic and Yes atraumatic Eyes: General: appearance normal, both eyes and all related structures Neck: Neck: Yes normal visual inspection, Yes full ROM, Yes no lymphadenopathy, Yes no meningeal signs, Yes trachea midline, Yes supple and No tender Chest: Chest palpation & inspection: normal inspection of the chest and normal palpation of entire chest wall Resp: Effort & Inspection: normal respiratory effort and able to speak in complete sentences Auscultation: clear to auscultation bilaterally Cardio: Jugular venous distension: no JVD Heart sounds: S1 normal heart sound present and S2 normal heart sound present GI: Inspection: Yes normal to inspection and No abdominal wall ecchymosis Palpation (GI): Soft to palpation, not firm, nontender, no guarding and not rigid : General: No CVA tenderness and Yes no CVA tenderness Back/Spine/Pelvis: Back: no CVA tenderness, No CVA tenderness and No back tenderness Skin: General skin exam: no rashes or lesions noted and abnormal elasticity Neuro: General: patient oriented x3, no meningeal signs and CN's II-XI intact bilaterally Cranial nerves: Yes CN's II-XII intact bilaterally Extrem: Other: Right upper extremity: positive for swelling/redness on dorsal aspect of right hand. negative for fluctulance or mass on palpation. negative for any limitation of felxion or extension of fingers. patient able to make a fist. not suspecting tenosynovitis General: Yes normal to inspection and Yes full ROM Psych: Appearance: grossly normal, well kempt and not disheveled Course Course Course Narrative: Patient will have labs, imaging, Reevaluation(s) Reevaluation #1: Patient has no elevated WBC count. CRP and ESR elevated. Xray negative for foreign body or osteomyelitis. Patient was evaluated by Ortho DINESH MARK who states presently history and physical exam does not indicate tenosynocvitis. She recommends IV antibiotics. Reevaluation #2: Case accepted by Dr. Ferraro, [facility], for admission Medical Decision Making MDM Narrative Medical decision making narrative: cellulitis Lab Data Result diagrams: 09/20/20 14:52 09/20/20 14:52 Labs: Lab Results 09/20/20 09/20/20 09/20/20 Range/Units 14:52 14:52 14:52 WBC 5.4 (4.8-10.8) X10*3/uL RBC 4.47 D (4.20-5.50) X10*6/uL Hgb 12.3 D (12.0-16.0) g/dl Hct 38.3 D (37-47) % MCV 85.7 (80-98) fL MCH 27.5 (27.0-33.0) pg MCHC 32.1 (31.0-35.0) g/dl RDW 15.0 (11.0-16.0) % Plt Count 250 D (160-400) X10*3/uL MPV 11.0 (9.4-12.3) fL Immature Gran % (Auto) 0.2 (0.0-0.4) % Neut % (Auto) 64.2 (45-73) % Lymph % (Auto) 24.1 (20-40) % [place] % (Auto) 11.3 H (2-11) % Eos % (Auto) 0.0 (0-4) % Baso % (Auto) 0.2 (0-2) % Lymph # (Auto) 1.3 (1.2-4.9) X10*3/uL [place] # (Auto) 0.6 (0.1-1.2) X10*3/uL Eos # (Auto) 0.0 (0.0-0.4) X10*3/uL Baso # (Auto) 0.0 (0.0-0.2) X10*3/uL Abs Immat Gran (auto) 0.01 (0.00-0.03) X10*3/uL Absolute Neuts (auto) 3.5 (2.0-8.3) X10*3/uL Absolute Nucleated RBC 0.000 (0.0-0.012) X10*3/uL Nucleated RBC % (auto) 0.0 (0.0-0.2) /100WBC ESR (0-20) MM/HR PT 11.7 (10.8-13.0) SEC INR 1.0 (0.9-1.1) APTT 33.9 (24.1-38.0) SEC Sodium (135-145) mmol/L Potassium (3.3-5.1) mmol/L Chloride (96-108) mmol/L Carbon Dioxide (22-29) mmol/L Anion Gap (12-20) BUN (9-16) mg/dL Creatinine (0.5-1.4) mg/dL Estim Creat Clear Calc Estimated GFR Random Glucose (60-115) mg/dL Lactic Acid 0.7 (0.5-2.0) mmol/L Calcium (8.4-10.2) mg/dL Total Bilirubin (0.0-1.0) mg/dL AST (5-31) U/L ALT (0-31) U/L Alkaline Phosphatase (39-117) U/L C-Reactive Protein (< or = 0.50) mg/dL Total Protein (6.5-8.0) g/dL Albumin (3.5-5.0) g/dL 09/20/20 09/20/20 Range/Units 14:52 14:53 WBC (4.8-10.8) X10*3/uL RBC (4.20-5.50) X10*6/uL Hgb (12.0-16.0) g/dl Hct (37-47) % MCV (80-98) fL MCH (27.0-33.0) pg MCHC (31.0-35.0) g/dl RDW (11.0-16.0) % Plt Count (160-400) X10*3/uL MPV (9.4-12.3) fL Immature Gran % (Auto) (0.0-0.4) % Neut % (Auto) (45-73) % Lymph % (Auto) (20-40) % [place] % (Auto) (2-11) % Eos % (Auto) (0-4) % Baso % (Auto) (0-2) % Lymph # (Auto) (1.2-4.9) X10*3/uL [place] # (Auto) (0.1-1.2) X10*3/uL Eos # (Auto) (0.0-0.4) X10*3/uL Baso # (Auto) (0.0-0.2) X10*3/uL Abs Immat Gran (auto) (0.00-0.03) X10*3/uL Absolute Neuts (auto) (2.0-8.3) X10*3/uL Absolute Nucleated RBC (0.0-0.012) X10*3/uL Nucleated RBC % (auto) (0.0-0.2) /100WBC ESR 54 H (0-20) MM/HR PT (10.8-13.0) SEC INR (0.9-1.1) APTT (24.1-38.0) SEC Sodium 138 (135-145) mmol/L Potassium 3.6 (3.3-5.1) mmol/L Chloride 102 (96-108) mmol/L Carbon Dioxide 26 (22-29) mmol/L Anion Gap 14 (12-20) BUN 15 (9-16) mg/dL Creatinine 0.76 (0.5-1.4) mg/dL Estim Creat Clear Calc 80.7 Estimated GFR > 60 Random Glucose 82 (60-115) mg/dL Lactic Acid (0.5-2.0) mmol/L Calcium 9.8 D (8.4-10.2) mg/dL Total Bilirubin 0.6 (0.0-1.0) mg/dL AST 15 (5-31) U/L ALT 13 (0-31) U/L Alkaline Phosphatase 128 H D (39-117) U/L C-Reactive Protein 3.86 H (< or = 0.50) mg/dL Total Protein 8.4 H D (6.5-8.0) g/dL Albumin 4.6 D (3.5-5.0) g/dL Discharge Plan Discharge Clinical Impression: Cellulitis Patient Disposition: Admitted As Inpatient
[2020-09-20 15:01] LABS: MANUAL DIFF FLAG NO
[2020-09-20 15:04] LABS: Basophils Percent Auto 0.2 % (0-2); Hematocrit 38.3 % (37-47); Hemoglobin 12.3 g/dl (12.0-16.0); Imm Gran Abs Auto 0.01 X10*3/uL (0.00-0.03); Imm Gran Pct Auto 0.2 % (0.0-0.4); Lymphocytes Absolute Auto 1.3 X10*3/uL (1.2-4.9); Lymphocytes Percent Auto 24.1 % (20-40); Mean Corpuscular HGB Conc 32.1 g/dl (31.0-35.0); Mean Corpuscular Hemoglobin 27.5 pg (27.0-33.0); Mean Corpuscular Volume 85.7 fL (80-98); Monocytes Absolute Auto 0.6 X10*3/uL (0.1-1.2); Monocytes Percent Auto 11.3 % (2-11); Neutrophils Absolute Auto 3.5 X10*3/uL (2.0-8.3); Neutrophils Percent Auto 64.2 % (45-73); Platelet Count 250 X10*3/uL (160-400); Red Blood Count 4.47 X10*6/uL (4.20-5.50); White Blood Count 5.4 X10*3/uL (4.8-10.8)
[2020-09-20 15:09] LABS: Prothrombin Time 11.7 SEC (10.8-13.0)
[2020-09-20 15:12] LABS: Partial Thromboplastin Time 33.9 SEC (24.1-38.0)
[2020-09-20 15:27] LABS: Lactic Acid 0.7 mmol/L (0.5-2.0)
[2020-09-20 15:29] LABS: C Reactive Protein 3.86 mg/dL (< or = 0.50)
[2020-09-20 15:55] LABS: Erythrocyte Sedimentation Rate 54 MM/HR (0-20)
[2020-09-20] MEDS: Piperacillin Sodium/Tazobactam 3.375 GM in 0.9 % Sodium Chloride 50 ML IV (16:07)
[2020-09-20 16:16] LABS: Alanine Aminotransferase 13 U/L (0-31); Albumin Level 4.6 g/dL (3.5-5.0); Alkaline Phosphatase 128 U/L (39-117); Anion Gap 14 (12-20); Aspartate Amino Transferase 15 U/L (5-31); Bilirubin Total 0.6 mg/dL (0.0-1.0); Blood Urea Nitrogen 15 mg/dL (9-16); Calcium 9.8 mg/dL (8.4-10.2); Carbon Dioxide 26 mmol/L (22-29); Chloride 102 mmol/L (96-108); Creatinine Clr Calc Pharmacy 80.7; Estimated Glomerular Filt Rate > 60; Glucose Random 82 mg/dL (60-115); Potassium 3.6 mmol/L (3.3-5.1); Sodium 138 mmol/L (135-145); Total Protein 8.4 g/dL (6.5-8.0)
--- NOTE | 2020-09-20 17:16 | PM.EVENT ---
Event Note Date of Service: 09/20/20 Event Note: Patient seen and examined independently and was present during lora portion of E/M service. Agree with midlevel's history, physical, assessment, and plan. 50F presented with right hand swelling and pain after injection of heroin and cocaine [facility] ortho follow up cultures
[2020-09-20] MEDS: ondansetron HCL 4 MG/2 ML VIAL IVPUSH (17:17)
[2020-09-20] MEDS: Ketorolac Tromethamine 30 MG/ML VIAL IVPUSH (17:17)
--- NOTE | 2020-09-20 17:21 | P.HPHOSP_ITS ---
History of Present Illness Date of Service: 09/20/20 Chief Complaint: right hand pain This is a 50-year-old female who presents to the emergency department with complaints of redness, pain, swelling of her right hand. She has a history of polysubstance abuse and recently injected cocaine and heroin into her right hand. She has associated chills. These symptoms started yesterday. In the emergency department she is afebrile. Lab work reveals no leukocytosis. There is no evidence of sepsis. Lactic acid is within normal limits. She received a dose of empiric vancomycin. X-ray of the hand shows soft tissue swelling with no foreign body. She was evaluated by the orthopedic PA who felt the patient could be admitted to the medical service and no acute surgical intervention was required. Review of Systems Review of Systems: Yes all other systems are reviewed and are negative Constitutional: Constitutional: Reports chills and Denies fever(s) Cardiovascular: Cardiovascular: Denies chest pain Respiratory: Respiratory: Denies cough Gastrointestinal: Gastrointestinal: Denies abdominal pain [facility] Medical History (Updated 09/20/20 @ 17:29 by DINESH Craft) Asthma Cocaine use disorder, moderate, dependence COPD (chronic obstructive pulmonary disease) Major depression, recurrent Opioid use disorder, severe, dependence Post traumatic stress disorder Functional capacity: independent ambulation Family history: reviewed and not pertinent Social History Household Members: None Housing: Apartment 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: current 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 frequency: holidays/special occasions only Alcohol type: wine Smoking Status: Current some day smoker Tobacco Type: Cigarette Packs Per Day: 0 Cigarettes Per Day: 10 Years Smoked: whole life Second Hand Smoke Exposure: Yes Substance Use Type: Crack/Cocaine, Heroin and Marijuana Advance Directives: Yes Advance Directives Information Provided: Yes Advance Directives on File: No Patient : No service: No Current occupational status: disabled Sexual orientation: Straight/Heterosexual Meds Allergies Allergy/AdvReac Type Severity Reaction Status Date / Time trazodone [TRAZODONE] Allergy Severe SHORTNESS Verified 04/10/20 13:21 OF BREATH, GASPING FOR AIR , SOB aspirin [ASPIRIN] Allergy Unknown STOMACH Verified 04/10/20 13:21 UPSET, Nausea, nausa ciprofloxacin [Cipro] Allergy Unknown Rash Verified 04/10/20 13:21 promethazine [Phenergan] Allergy Unknown Hives Verified 04/10/20 13:21 Sulfa (Sulfonamide Allergy Unknown Unknown Verified 04/10/20 13:21 Antibiotics) Active Medications: Current Medications Generic Name Dose Route Start Last Admin Trade Name Donavanq PRN Reason Stop Dose Admin Nicotine 14 mg 09/20/20 17:15 Nicotine 14 Mg Patch.Td24 TRANSDERMA DAILY [facility] Pharmacy Consult 1 each 09/20/20 16:28 Consult Rx Perform Med Rec MISCELLANE ONCE PRN Consult order Home Medications Medication Instructions Recorded Confirmed Last Taken Type clonazepam 1 mg PO BEDTIME 05/28/20 09/20/20 Unknown History albuterol sulfate [ProAir HFA] 2 puff INHALATION Q4H PRN 09/20/20 09/20/20 Unknown History zolpidem [Ambien] 10 mg PO BEDTIME 09/20/20 09/20/20 Unknown History Physical Exam Vital Signs and Narrative: Vital Signs: Last Vital Signs Temp 97.6 F 09/20/20 11:41 Pulse 74 09/20/20 14:00 Resp 18 09/20/20 14:00 BP 142/88 H 09/20/20 14:00 Pulse Ox 98 09/20/20 14:00 Body Mass Index 25.7 Const: Nutritional Appearance: well nourished Orientation/consciousness: patient oriented x3 HENMT: Head: Yes normocephalic and Yes atraumatic Eyes: Sclerae: sclerae normal Chest: Chest palpation & inspection: normal inspection of the chest Resp: Effort & Inspection: normal respiratory effort and no respiratory distress Auscultation: clear to auscultation bilaterally Cardio: Rate: regular rate Rhythm: regular rhythm GI: Palpation (GI): Soft to palpation and nontender Skin: Other: no fluctuance or induration, no drainage Neuro: General: patient oriented x3 Cranial nerves: Yes CN's II-XII intact bilaterally and Yes Bilaterally intact EOM present Results Labs CBC and Chem 7: 09/20/20 14:52 09/20/20 14:52 Labs: Laboratory Results - last 24 hr 09/20/20 09/20/20 09/20/20 14:52 14:52 14:52 MCV 85.7 MCH 27.5 MCHC 32.1 RDW 15.0 Plt Count 250 D MPV 11.0 Immature Gran % (Auto) 0.2 Neut % (Auto) 64.2 Lymph % (Auto) 24.1 [place] % (Auto) 11.3 H Eos % (Auto) 0.0 Baso % (Auto) 0.2 Lymph # (Auto) 1.3 [place] # (Auto) 0.6 Eos # (Auto) 0.0 Baso # (Auto) 0.0 Abs Immat Gran (auto) 0.01 Absolute Neuts (auto) 3.5 Absolute Nucleated RBC 0.000 Nucleated RBC % (auto) 0.0 ESR PT 11.7 INR 1.0 APTT 33.9 Anion Gap Estim Creat Clear Calc Estimated GFR Random Glucose Lactic Acid 0.7 Calcium Total Bilirubin AST ALT Alkaline Phosphatase C-Reactive Protein Total Protein Albumin 09/20/20 09/20/20 14:52 14:53 MCV MCH MCHC RDW Plt Count MPV Immature Gran % (Auto) Neut % (Auto) Lymph % (Auto) [place] % (Auto) Eos % (Auto) Baso % (Auto) Lymph # (Auto) [place] # (Auto) Eos # (Auto) Baso # (Auto) Abs Immat Gran (auto) Absolute Neuts (auto) Absolute Nucleated RBC Nucleated RBC % (auto) ESR 54 H PT INR APTT Anion Gap 14 Estim Creat Clear Calc 80.7 Estimated GFR > 60 Random Glucose 82 Lactic Acid Calcium 9.8 D Total Bilirubin 0.6 AST 15 ALT 13 Alkaline Phosphatase 128 H D C-Reactive Protein 3.86 H Total Protein 8.4 H D Albumin 4.6 D Imaging Radiologist's Impressions: Impressions Hand X-Ray 09/20/20 12:56 IMPRESSION: Mild degenerative changes PIP and DIP joints with mild soft tissue swelling. No visible acute fracture, dislocation or subluxation seen. Assessment and Plan (1) Cellulitis: Status: Acute This is a 50-year-old female with history of polysubstance abuse presents to the emergency department with 1 day history of increasing redness, pain, pain of her right hand Right hand cellulitis In the setting of IVDU No evidence of sepsis -IV vancomycin -follow-up blood cultures Polysubstance abuse -addiction medicine consult -reportedly started methadone recently, will need to confirm dose tobacco dependence -NRT Mood -continue effexor, ativan, seroquel dvt ppx - lovenox code status full code Attending: dr. Ferraro
[2020-09-20 17:55] LABS: COVID-19 Test Negative (Negative)
[2020-09-20] MEDS: vancomycin HCL 750 MG in 0.9 % Sodium Chloride 250 ML 265 MG IV (18:14)
[2020-09-20 19:10] VITALS: BP 108/65; PULSE 71; RESP 18; TEMP 36.8; O2SAT 98
--- NOTE | 2020-09-20 19:26 | PC.NURSE ---
rn to rn with [place]
[2020-09-20 20:21] VITALS: BP 136/86; PULSE 62; RESP 16; TEMP 36.2; O2SAT 98
[2020-09-20] MEDS: clonazePAM 1 MG TABLET PO (20:43)
[2020-09-20] MEDS: QUEtiapine Fumarate 200 MG TABLET PO (20:43)
[2020-09-20] MEDS: 0.9 % Sodium Chloride Flush 3 ML SYRINGE IVFLUSH (20:43)
--- NOTE | 2020-09-20 20:53 | PM.EVENT ---
Event Note Date of Service: 09/20/20 Event Note: cellulitis -saw the patient at bedside in the ED -swelling on the dorsum of the hand -she is able to make a fist and extend all digits -no notable abscess formation -recommend iv abx, no surgical intervention at this time -will re-eval in 24 hours
--- NOTE | 2020-09-20 20:54 | PM.CNOR ---
History of Present Illness HPI Consult date: 09/22/20 Chief complaint: Right hand cellulitis Narrative: Ms. Chow is a 50 yo female who presented to the ED with worsening redness and pain in the right hand s/p IVDU. She was admitted to the hospital service for iv abx and ortho was consulted for further recommendations. Review of Systems Review of Systems: Yes all other systems are reviewed and are negative PMFSH Past Medical History Medical History (Updated 09/20/20 @ 17:29 by DINESH Craft) Asthma Cocaine use disorder, moderate, dependence COPD (chronic obstructive pulmonary disease) Major depression, recurrent Opioid use disorder, severe, dependence Post traumatic stress disorder Functional capacity: independent ambulation Family History Family history: reviewed and not pertinent Social History Social History Household Members: None Housing: Apartment Do you presently have visiting nurse or other home services: Yes 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: never Smoking Status: Current every day smoker Tobacco Type: Cigarette Packs Per Day: 0 Cigarettes Per Day: 10 Years Smoked: whole life Smoked in Last 30 Days: Yes Patient Interested in Nicotine Replacement: No Patient Given Instructions on How to Stop Smoking: Yes Date Education Initiated: 09/20/20 Second Hand Smoke Exposure: No Use of substances other than those prescribed or required for medical reasons: Yes Substance Use Type: Crack/Cocaine and Heroin Substance Use Frequency: Daily Last Used Substance: Days (ago) Currently Displaying Signs/Symptoms of Drug Intoxication Withdrawal: No Have you been hit, kicked, punched, or otherwise hurt by someone within the past year? If so, by whom?: No Do you feel safe in your current relationship?: No Is there a partner from a previous relationship who is making you feel unsafe now?: No Are you made to feel afraid or neglected: No Advance Directives: Yes Advance Directives Information Provided: Yes Advance Directives on File: No Advance Directives Date on File: 09/20/20 Do you have thoughts of harming others: None Do you have a plan to hurt others: No Plan Recently lost weight without trying: No Nutrition Risks: No Nutritional Risk Patient : No : No Poor oral hygiene: No service: No Current occupational status: disabled Sexual orientation: Straight/Heterosexual Meds Allergies Allergy/AdvReac Type Severity Reaction Status Date / Time trazodone [TRAZODONE] Allergy Severe SHORTNESS Verified 04/10/20 13:21 OF BREATH, GASPING FOR AIR , SOB aspirin [ASPIRIN] Allergy Unknown STOMACH Verified 04/10/20 13:21 UPSET, Nausea, nausa ciprofloxacin [Cipro] Allergy Unknown Rash Verified 04/10/20 13:21 promethazine [Phenergan] Allergy Unknown Hives Verified 04/10/20 13:21 Sulfa (Sulfonamide Allergy Unknown Unknown Verified 04/10/20 13:21 Antibiotics) Active Medications: Current Medications Generic Name Dose Route Start Last Admin Trade Name Freq PRN Reason Stop Dose Admin Acetaminophen 650 mg 09/20/20 17:48 Acetaminophen 325 Mg Tablet PO Q6H PRN Pain, Mild (Pain Scale 1-3) Clonazepam 1 mg 09/20/20 21:00 09/20/20 20:43 Clonazepam 1 Mg Tablet PO 1 mg BEDTIME ALICIA Administration Clonazepam 0.5 mg 09/20/20 17:48 Clonazepam 0.5 Mg Tablet PO BID PRN anxiety Docusate Sodium 100 mg 09/20/20 17:48 Docusate Sodium 100 Mg Capsule PO DAILY PRN Constipation Enoxaparin Sodium 40 mg 09/20/20 18:00 09/20/20 20:45 Enoxaparin Sodium 40 Mg/0.4 Ml Syringe SUBCUT Not Given Q24H [facility] Vancomycin HCl 1,000 mg/ 270 mls @ 270 mls/hr 09/21/20 02:00 Sodium Chloride IV Q12H [facility] Morphine Sulfate 2 mg 09/20/20 17:38 Morphine Sulfate 2 Mg/Ml Cartridge IVPUSH Q3H PRN Pain, Severe (Pain Scale 7-10) Nicotine 14 mg 09/20/20 17:15 09/20/20 18:15 Nicotine 14 Mg Patch.Td24 TRANSDERMA Not Given DAILY [facility] Ondansetron HCl 4 mg 09/20/20 17:48 Ondansetron Hcl 4 Mg/2 Ml Vial IVPUSH Q8H PRN Nausea and Vomiting Oxycodone HCl 5 mg 09/20/20 17:38 Oxycodone Hcl Immed Release 5 Mg Tablet PO Q6H PRN Pain, Moderate (Pain Scale 4-6 Pharmacy Consult 1 each 09/20/20 16:28 Consult Rx Perform Med Rec MISCELLANE ONCE PRN Consult order Pharmacy Consult 1 each 09/20/20 17:48 Consult Rx Vancomycin Dosing MISCELLANE DAILY PRN Consult order Quetiapine Fumarate 50 mg 09/20/20 17:48 Quetiapine Fumarate 50 Mg Tablet PO TID PRN Anxiety Quetiapine Fumarate 200 mg 09/20/20 21:00 09/20/20 20:43 Quetiapine Fumarate 200 Mg Tablet PO 200 mg BEDTIME ALICIA Administration Sodium Chloride 3 ml 09/21/20 00:00 09/20/20 20:43 0.9 % Sodium Chloride Flush 3 Ml Syringe IVFLUSH 3 ml QSHIFT ALICIA Administration Venlafaxine HCl 300 mg 09/21/20 09:00 Venlafaxine Hcl Er 75 Mg Cap.Er.24h PO DAILY [facility] Zolpidem Tartrate 10 mg 09/20/20 17:48 Zolpidem Tartrate 5 Mg Tablet PO BEDTIME PRN Insomnia Home Medications Medication Instructions Recorded Confirmed Last Taken Type clonazepam 1 mg PO BEDTIME 05/28/20 09/20/20 Unknown History albuterol sulfate [ProAir HFA] 2 puff INHALATION Q4H PRN 09/20/20 09/20/20 Unknown History zolpidem [Ambien] 10 mg PO BEDTIME 09/20/20 09/20/20 Unknown History methadone 20 mg PO DAILY 09/21/20 09/21/20 09/20/20 10:42 History Physical Exam Vital Signs: Vital Signs: Last Vital Signs Temp 97.1 F 09/20/20 20:21 Pulse 62 09/20/20 20:21 Resp 16 09/20/20 20:21 BP 136/86 09/20/20 20:21 Pulse Ox 98 09/20/20 20:21 Body Mass Index 25.7 Const: General: cooperative, healthy appearing, comfortable and no acute distress Extrem: Other: Right hand swelling over the dorsum of the hand. There is an area of redness and swelling below the index finder MCP joint with mild tenderness. She can make a full fist and fully extend the digits. NVI. xrays of the right hand negative for fractures, dislocations or foreign bodies. Results Labs Result Diagrams: 09/21/20 05:34 09/21/20 05:34 Labs: Abnormal lab results 09/20/20 09/20/20 09/20/20 Range/Units 14:52 14:52 14:53 [place] % (Auto) 11.3 H (2-11) % ESR 54 H (0-20) MM/HR Alkaline Phosphatase 128 H D (39-117) U/L C-Reactive Protein 3.86 H (< or = 0.50) mg/dL Total Protein 8.4 H D (6.5-8.0) g/dL H & H 09/20/20 Range/Units 14:52 Hgb 12.3 D (12.0-16.0) g/dl Hct 38.3 D (37-47) % Coagulation 09/20/20 Range/Units 14:52 INR 1.0 (0.9-1.1) All other labs normal. Assessment and Plan (1) Cellulitis: Status: Acute Case discussed with Dr Paz. Will continue with IV abx and warm compress. Will continue to follow.
[2020-09-20] MEDS: oxyCODONE HCl Immed Release 5 MG TABLET PO (21:07)
--- NOTE | 2020-09-21 | ECG_ITS ---
Test Reason : methadone Blood Pressure : / mmHG Vent. Rate : 066 BPM Atrial Rate : 066 BPM P-R Int : 154 ms QRS Dur : 078 ms QT Int : 424 ms P-R-T Axes : -15 026 024 degrees QTc Int : 444 ms Normal sinus rhythm Normal ECG When compared to the previous EKG of No significant changes seen Referred By: Otoniel Ferraro Electronically Signed By:Andres Dial
[2020-09-21 00:28] VITALS: BP 104/66; PULSE 69; RESP 16; TEMP 36.7; O2SAT 97
[2020-09-21 04:40] VITALS: BP 104/62; PULSE 70; RESP 16; TEMP 36.1; O2SAT 95
[2020-09-21] MEDS: vancomycin HCL 1,000 MG in 0.9 % Sodium Chloride 250 ML 270 MG IV ×2 (05:21→18:16)
[2020-09-21 06:06] LABS: Hemoglobin 10.2 g/dl (12.0-16.0); Mean Corpuscular HGB Conc 31.9 g/dl (31.0-35.0); Mean Corpuscular Hemoglobin 27.2 pg (27.0-33.0); Mean Corpuscular Volume 85.3 fL (80-98); Mean Platelet Volume 11.6 fL (9.4-12.3); Platelet Count 226 X10*3/uL (160-400); Red Blood Count 3.75 X10*6/uL (4.20-5.50); White Blood Count 3.4 X10*3/uL (4.8-10.8)
[2020-09-21 06:30] LABS: Anion Gap 10 (12-20); Blood Urea Nitrogen 12 mg/dL (9-16); Carbon Dioxide 24 mmol/L (22-29); Chloride 109 mmol/L (96-108); Creatinine Clr Calc Pharmacy 95.8; Estimated Glomerular Filt Rate > 60; Glucose Random 74 mg/dL (60-115); Potassium 3.5 mmol/L (3.3-5.1); Sodium 139 mmol/L (135-145)
[2020-09-21 07:50] VITALS: BP 113/56; PULSE 68; RESP 18; TEMP 37.3; O2SAT 94
[2020-09-21] MEDS: Venlafaxine HCl ER 150 MG CAP.ER.24H 300 MG PO (08:41)
[2020-09-21] MEDS: 0.9 % Sodium Chloride Flush 3 ML SYRINGE IVFLUSH ×3 (08:41→20:25)
[2020-09-21] MEDS: oxyCODONE HCl Immed Release 5 MG TABLET PO (09:39)
--- NOTE | 2020-09-21 10:01 | MHC.RECOVSUP ---
Recovery Support note: Patient is a 50 year old Dominican speaking female who presented to [facility] ED due to a hand infection that occurred after injecting heroin and cocaine. Patient was medically admitted and seen by this underwriter solicitation director to discuss her substance use and treatment options. Discussed harm reduction with patient and the risk of infection when injecting substances. Patient reports she gets her needles from the pharmacy. Patient states this was the first time she used cocaine in a period of weeks and that she has been using heroin regularly however recently enrolled in a methadone clinic. Patient reports she has not had any withdrawal symptoms over the past day. Patient reports she is getting her methadone from the [facility] in [place] an that they started her yesterday. Patient reports she has had great success with methadone in the past and that she had 8 years of sobriety. Patient reports during that 8 year period, she also found it helpful to be on the right psychiatric medications. Patient reports she currently feels very good about her mental health and she feels her medications are working as intended. Patient reports she gets therapy and psychiatry through [facility]. Patient reports winter is a hard time of year for her and that she is feeling good about her recovery now that she will be able to stay busy outside. Discussed additional ways to support her recovery and patient was receptive to suggestions. Patient reports she does not do well in groups however she may be interested in trying out virtual support meetings. Patient reports her methadone clinic has requested an EKG and this underwriter solicitation director passed along this request to patient's hospitalist. Discussed case with patient's RN.
--- NOTE | 2020-09-21 10:14 | P.PNIM_ITS ---
Subjective Subjective Date of Service: 09/21/20 Interval History: hand improving Cardiovascular Cardiovascular: Reports no additional cardiovascular complaints Respiratory Respiratory: Reports no additional respiratory complaints Physical Exam Vital Signs: Vital Signs: Last Vital Signs Temp 99.1 F 09/21/20 07:50 Pulse 68 09/21/20 07:50 Resp 18 09/21/20 07:50 BP 113/56 L 09/21/20 07:50 Pulse Ox 94 09/21/20 07:50 Body Mass Index 25.7 General: AO X 3, no acute distress Resp: CTA bilateral CVS: S1,S2,RRR GI: soft, non tender, non distended Neuro: motor grossly intact Psych: appropriate affect est: improving right hand erythema and edema Objective Data Current Medications Generic Name Dose Route Start Last Admin Trade Name Freq PRN Reason Stop Dose Admin Acetaminophen 650 mg 09/20/20 17:48 Acetaminophen 325 Mg Tablet PO Q6H PRN Pain, Mild (Pain Scale 1-3) Clonazepam 1 mg 09/20/20 21:00 09/20/20 20:43 Clonazepam 1 Mg Tablet PO 1 mg BEDTIME ALICIA Administration Clonazepam 0.5 mg 09/20/20 17:48 Clonazepam 0.5 Mg Tablet PO BID PRN anxiety Docusate Sodium 100 mg 09/20/20 17:48 Docusate Sodium 100 Mg Capsule PO DAILY PRN Constipation Enoxaparin Sodium 40 mg 09/20/20 18:00 09/20/20 20:45 Enoxaparin Sodium 40 Mg/0.4 Ml Syringe SUBCUT Not Given Q24H [facility] Vancomycin HCl 1,000 mg/ 270 mls @ 270 mls/hr 09/21/20 06:00 09/21/20 06:46 Sodium Chloride IV Infused Q12H [facility] Infusion Methadone HCl 20 mg 09/21/20 10:00 Methadone Hcl 1 Mg/0.1 Ml Oral.Conc PO DAILY [facility] Morphine Sulfate 2 mg 09/20/20 17:38 Morphine Sulfate 2 Mg/Ml Cartridge IVPUSH Q3H PRN Pain, Severe (Pain Scale 7-10) Nicotine 14 mg 09/20/20 17:15 09/21/20 08:41 Nicotine 14 Mg Patch.Td24 TRANSDERMA Not Given DAILY [facility] Ondansetron HCl 4 mg 09/20/20 17:48 Ondansetron Hcl 4 Mg/2 Ml Vial IVPUSH Q8H PRN Nausea and Vomiting Oxycodone HCl 5 mg 09/20/20 17:38 09/21/20 09:39 Oxycodone Hcl Immed Release 5 Mg Tablet PO 5 mg Q6H PRN Administration Pain, Moderate (Pain Scale 4-6 Pharmacy Consult 1 each 09/20/20 16:28 Consult Rx Perform Med Rec MISCELLANE ONCE PRN Consult order Pharmacy Consult 1 each 09/20/20 17:48 Consult Rx Vancomycin Dosing MISCELLANE DAILY PRN Consult order Quetiapine Fumarate 50 mg 09/20/20 17:48 Quetiapine Fumarate 50 Mg Tablet PO TID PRN Anxiety Quetiapine Fumarate 200 mg 09/20/20 21:00 09/20/20 20:43 Quetiapine Fumarate 200 Mg Tablet PO 200 mg BEDTIME ALICIA Administration Sodium Chloride 3 ml 09/21/20 00:00 09/21/20 08:41 0.9 % Sodium Chloride Flush 3 Ml Syringe IVFLUSH 3 ml QSHIFT ALICIA Administration Venlafaxine HCl 300 mg 09/21/20 09:00 09/21/20 08:41 Venlafaxine Hcl Er 150 Mg Cap.Er.24h PO 300 mg DAILY ALICIA Administration Zolpidem Tartrate 10 mg 09/20/20 17:48 Zolpidem Tartrate 5 Mg Tablet PO BEDTIME PRN Insomnia Labs CBC & Chem 7: 09/21/20 05:34 09/21/20 05:34 Assessment and Plan (1) Cellulitis: Status: Acute Assessment and Plan: 50-year-old female with history of polysubstance abuse presented to the emergency department with redness, pain, pain of her right hand Right hand cellulitis In the setting of IVDU No evidence of sepsis continue vancomycin -follow-up blood cultures improved today follow up ortho Polysubstance abuse -addiction medicine following recently started on methadone 20mg check ekg tobacco dependence -NRT Mood -continue effexor, ativan, seroquel dvt ppx - lovenox code status full code
[2020-09-21 12:00] VITALS: BP 108/56; PULSE 63; RESP 19; TEMP 36.9; O2SAT 97
[2020-09-21] MEDS: Morphine Sulfate 2 MG/ML CARTRIDGE IVPUSH ×2 (13:22→18:21)
[2020-09-21] MEDS: clonazePAM 0.5 MG TABLET PO (13:28)
--- NOTE | 2020-09-21 14:11 | PC.NURSE ---
EKG done x 2,Dr Ferraro aware.
--- NOTE | 2020-09-21 14:17 | PM.EVENT ---
Event Note Date of Service: 09/21/20 Event Note: right hand cellulitis s/p IVDU she feels there is slight improvement -continued redness and swelling -rec warm soaks -re-eval in morning after 24+ hrs on abx
--- NOTE | 2020-09-21 15:08 | MHC.CM.PN ---
PATIENT LIVES ALONE. SHE IS ACTIVE AT METHADONE CLINIC IN [place] (REPORTS THAT THIS IS A FAIRLY NEW LOCATION) PATIENT IS ACTIVE WITH QUINN TREVIÑO FOR DAILY MEDICATION ADMINISTRATION. REFERRAL PLACED FOR AGENCY TO FOLLOW. NO DME FOR AMBULATION ASSIST. THERE IS NO HCP ON FILE. PATIENT IS HOPING TO BE ABLE TO RETURN HOME TOMORROW, BUT IS AWARE THAT THERE IS CURRENTLY NO PLAN FOR DISCHARGE.
[2020-09-21 15:38] VITALS: BP 134/68; PULSE 70; RESP 16; TEMP 36; O2SAT 97
[2020-09-21 19:22] VITALS: BP 128/75; PULSE 68; RESP 18; TEMP 36; O2SAT 97
[2020-09-21] MEDS: QUEtiapine Fumarate 200 MG TABLET PO (20:24)
[2020-09-21] MEDS: clonazePAM 1 MG TABLET PO (20:24)
[2020-09-22] VITALS (8 sets, daily range): BP systolic 97–140; BP diastolic 62–79; PULSE 57–78; RESP 16–19; TEMP 36.2–37.1; O2SAT 97–99
[2020-09-22] MEDS: Morphine Sulfate 2 MG/ML CARTRIDGE IVPUSH ×4 (01:15→20:31)
[2020-09-22] MEDS: vancomycin HCL 1,000 MG in 0.9 % Sodium Chloride 250 ML 270 MG IV ×2 (06:44→17:48)
[2020-09-22] MEDS: Venlafaxine HCl ER 150 MG CAP.ER.24H 300 MG PO (07:58)
[2020-09-22] MEDS: 0.9 % Sodium Chloride Flush 3 ML SYRINGE IVFLUSH ×3 (07:58→20:34)
--- NOTE | 2020-09-22 09:24 | HO.PM.IMPN ---
Subjective Subjective Date of Service: 09/22/20 Interval History: still with right hand pain, maybe a bit better today Cardiovascular Cardiovascular: Reports no additional cardiovascular complaints Genitourinary Genitourinary: Reports no additional female genitourinary complaints Physical Exam Vital Signs: Vital Signs: Last Vital Signs Temp 97.1 F 09/22/20 08:00 Pulse 57 09/22/20 08:00 Resp 19 09/22/20 08:00 BP 113/67 09/22/20 08:00 Pulse Ox 99 09/22/20 08:00 Body Mass Index 25.7 General: AO X 3, no acute distress Resp: CTA bilateral CVS: S1,S2,RRR GI: soft, non tender, non distended Neuro: motor grossly intact Psych: appropriate affect est: improving right hand erythema and edema Objective Data Current Medications Generic Name Dose Route Start Last Admin Trade Name Freq PRN Reason Stop Dose Admin Acetaminophen 650 mg 09/20/20 17:48 Acetaminophen 325 Mg Tablet PO Q6H PRN Pain, Mild (Pain Scale 1-3) Clonazepam 1 mg 09/20/20 21:00 09/21/20 20:24 Clonazepam 1 Mg Tablet PO 1 mg BEDTIME ALICIA Administration Clonazepam 0.5 mg 09/20/20 17:48 09/21/20 13:28 Clonazepam 0.5 Mg Tablet PO 0.5 mg BID PRN Administration anxiety Docusate Sodium 100 mg 09/20/20 17:48 Docusate Sodium 100 Mg Capsule PO DAILY PRN Constipation Enoxaparin Sodium 40 mg 09/20/20 18:00 09/21/20 18:17 Enoxaparin Sodium 40 Mg/0.4 Ml Syringe SUBCUT Not Given Q24H ALICIA Vancomycin HCl 1,000 mg/ 270 mls @ 270 mls/hr 09/21/20 06:00 09/22/20 07:59 Sodium Chloride IV Infused Q12H ALICIA Infusion Methadone HCl 20 mg 09/21/20 10:00 09/22/20 07:58 Methadone Hcl 1 Mg/0.1 Ml Oral.Conc PO 20 mg DAILY ALICIA Administration Morphine Sulfate 2 mg 09/20/20 17:38 09/22/20 01:15 Morphine Sulfate 2 Mg/Ml Cartridge IVPUSH 2 mg Q3H PRN Administration Pain, Severe (Pain Scale 7-10) Nicotine 14 mg 09/20/20 17:15 09/22/20 07:58 Nicotine 14 Mg Patch.Td24 TRANSDERMA Not Given DAILY ALICIA Ondansetron HCl 4 mg 09/20/20 17:48 Ondansetron Hcl 4 Mg/2 Ml Vial IVPUSH Q8H PRN Nausea and Vomiting Oxycodone HCl 5 mg 09/20/20 17:38 09/21/20 09:39 Oxycodone Hcl Immed Release 5 Mg Tablet PO 5 mg Q6H PRN Administration Pain, Moderate (Pain Scale 4-6 Pharmacy Consult 1 each 09/20/20 16:28 Consult Rx Perform Med Rec MISCELLANE ONCE PRN Consult order Pharmacy Consult 1 each 09/20/20 17:48 Consult Rx Vancomycin Dosing MISCELLANE DAILY PRN Consult order Quetiapine Fumarate 50 mg 09/20/20 17:48 Quetiapine Fumarate 50 Mg Tablet PO TID PRN Anxiety Quetiapine Fumarate 200 mg 09/20/20 21:00 09/21/20 20:24 Quetiapine Fumarate 200 Mg Tablet PO 200 mg BEDTIME ALICIA Administration Sodium Chloride 3 ml 09/21/20 00:00 09/22/20 07:58 0.9 % Sodium Chloride Flush 3 Ml Syringe IVFLUSH 3 ml QSHIFT ALICIA Administration Venlafaxine HCl 300 mg 09/21/20 09:00 09/22/20 07:58 Venlafaxine Hcl Er 150 Mg Cap.Er.24h PO 300 mg DAILY ALICIA Administration Zolpidem Tartrate 10 mg 09/20/20 17:48 Zolpidem Tartrate 5 Mg Tablet PO BEDTIME PRN Insomnia Labs CBC & Chem 7: 09/21/20 05:34 09/21/20 05:34 Microbiology Microbiology Results: Microbiology 09/20/20 17:25 Blood - Venous Blood Culture - Preliminary No growth after 24 hours. 09/20/20 14:51 Blood - Venous Blood Culture - Preliminary No growth after 24 hours. Assessment and Plan (1) Cellulitis: Status: Acute Assessment and Plan: 50-year-old female with history of polysubstance abuse presented to the emergency department with redness, pain, pain of her right hand Right hand cellulitis In the setting of IVDU No evidence of sepsis continue vancomycin IV for now blood cultures negative so far continue soaks follow up ortho Polysubstance abuse -addiction medicine following recently started on methadone 20mg tobacco dependence -NRT Mood -continue effexor, ativan, seroquel dvt ppx - lovenox code status full code
--- NOTE | 2020-09-22 11:13 | MHC.RECOVSUP ---
Recovery Support note: Patient signed release for EKG results to be sent to [facility] in [place]. This service writer advisor faxed release and EKG to facility.
[2020-09-22] MEDS: clonazePAM 0.5 MG TABLET PO (11:52)
[2020-09-22] MEDS: QUEtiapine Fumarate 200 MG TABLET PO (20:24)
[2020-09-22] MEDS: clonazePAM 1 MG TABLET PO (20:24)
[2020-09-22] MEDS: Zolpidem Tartrate 5 MG TABLET 10 MG PO ×2 (20:27→20:28)
[2020-09-23] VITALS: BP 133/71; PULSE 63; RESP 18; TEMP 36.1; O2SAT 99
[2020-09-23] MEDS: Morphine Sulfate 2 MG/ML CARTRIDGE IVPUSH ×3 (03:32→11:58)
[2020-09-23 04:00] VITALS: BP 100/60; RESP 16; TEMP 37; O2SAT 94
[2020-09-23] MEDS: vancomycin HCL 1,000 MG in 0.9 % Sodium Chloride 250 ML 270 MG IV (06:46)
[2020-09-23 06:55] LABS: Hematocrit 36.7 % (37-47); Hemoglobin 11.4 g/dl (12.0-16.0); Mean Corpuscular HGB Conc 31.1 g/dl (31.0-35.0); Mean Corpuscular Volume 86.8 fL (80-98); Mean Platelet Volume 12.5 fL (9.4-12.3); Platelet Count 191 X10*3/uL (160-400); Red Blood Count 4.23 X10*6/uL (4.20-5.50); Red Cell Distribution Width 15.2 % (11.0-16.0); White Blood Count 4.1 X10*3/uL (4.8-10.8)
[2020-09-23 07:11] VITALS: BP 110/55; PULSE 55; RESP 17; TEMP 36.8; O2SAT 95
[2020-09-23 07:34] LABS: Anion Gap 14 (12-20); Blood Urea Nitrogen 14 mg/dL (9-16); Calcium 9.6 mg/dL (8.4-10.2); Carbon Dioxide 25 mmol/L (22-29); Chloride 104 mmol/L (96-108); Creatinine Clr Calc Pharmacy 94.4; Estimated Glomerular Filt Rate > 60; Glucose Fasting 103 mg/dL (60-99); Magnesium 2.1 mg/dL (1.6-2.6); Potassium 5.1 mmol/L (3.3-5.1); Sodium 138 mmol/L (135-145)
[2020-09-23] MEDS: Venlafaxine HCl ER 150 MG CAP.ER.24H 300 MG PO (08:58)
[2020-09-23] MEDS: clonazePAM 0.5 MG TABLET PO (09:01)
--- NOTE | 2020-09-23 09:52 | PM.DS ---
DS: Providers Provider Date of Service: 09/23/20 Date of admission: 09/20/20 17:07 Primary care physician: Aretha Macedo MD Consults: 09/20/20 17:07 Addiction Medicine Routine Consulting Provider: Anali Valdez Reason for consultation: polysubstance abuse Has provider been notified: No Consult to Orthopedics Routine Consulting Provider: Margot Paz Reason for consultation: right hand cellulitis, IVDU Has provider been notified: No DS: Diagnosis Discharge Diagnosis (1) Cellulitis: Status: Acute (2) Polysubstance (including opioids) dependence with physiol dependence: Status: Acute (3) Tobacco use: Status: Acute DS: Medications Discharge Medications Home Medications: Home Medications Medication Instructions Recorded Confirmed clonazepam 1 mg PO BEDTIME 05/28/20 09/20/20 albuterol sulfate [ProAir HFA] 2 puff INHALATION Q4H PRN 09/20/20 09/20/20 zolpidem [Ambien] 10 mg PO BEDTIME 09/20/20 09/20/20 methadone 20 mg PO DAILY 09/21/20 09/21/20 Previous Rx's Medication Instructions Recorded Narcan 4 mg INTRANASAL (ALT) ONCE PRN 1 03/15/20 Days #1 ea clonazepam 0.5 mg PO BID PRN 30 Days #60 tab 03/15/20 quetiapine 50 mg PO TID PRN 30 Days #90 tab 03/15/20 quetiapine [Seroquel] 200 mg PO BEDTIME 30 Days #30 tab 03/15/20 venlafaxine 300 mg PO DAILY 30 Days #60 cap 03/15/20 doxycycline hyclate 100 mg PO BID #14 tab 09/23/20 DS: Summary Hospital Course Hospital Course: Patient was admitted for cellulitis of the right hand and forearm in the setting of IV drug use. She was started on IV vancomycin and orthopedic consultation was sought. Orthopedics recommended IV antibiotics and warm compresses. The patient did not require any surgical intervention. Over the course of 3 days in the hospital her cellulitis had significant improvement. Her blood cultures were negative at 48 hours and she will be transitioned to oral doxycycline for 7 more days at the time of discharge. She has been strongly encouraged on complete cessation of illicit substances. She reports that she follows up with the methadone clinic and she has been advised to do so. Time Spent with Patient Time attestation: Total time spent providing and/or coordinating discharge services: Discharge coordination time: Greater than 30 minutes Quality: Stroke Does the patient have a stroke diagnosis?: No Physical Exam Vital Signs: Vital Signs: Last Vital Signs Temp 98.2 F 09/23/20 07:11 Pulse 55 09/23/20 07:11 Resp 17 09/23/20 07:11 BP 110/55 L 09/23/20 07:11 Pulse Ox 95 09/23/20 07:11 Body Mass Index 25.7 Const: Other: General - no acute distress, appears comfortable Cardiovascular - regular rate and rhythm, S1-S2 Lungs - normal respiratory effort, clear to auscultation bilaterally, no wheezing Abdomen - soft, nontender, no rebound or guarding Extremities - no edema bilaterally Neuro - awake and alert, no focal deficits Skin - RUE - dorsal aspect mild erythema, ROM normal, no pain with ROM DS: Data Data Completed and Pending Completed studies during hospitalization [Text1]: Procedures Insertion of Infusion Device into Right External Jugular Vein, Percutaneous Approach (04/10/20) Ultrasonography of Right Jugular Veins, Guidance (04/10/20) Labs on day of discharge: Laboratory Results - last 24 hr 09/23/20 09/23/20 06:06 06:06 WBC 4.1 L RBC 4.23 Hgb 11.4 L Hct 36.7 L MCV 86.8 MCH 27.0 MCHC 31.1 RDW 15.2 Plt Count 191 MPV 12.5 H Absolute Nucleated RBC 0.000 Nucleated RBC % (auto) 0.0 Sodium 138 Potassium 5.1 D Chloride 104 Carbon Dioxide 25 Anion Gap 14 BUN 14 Creatinine 0.65 Estim Creat Clear Calc 94.4 Estimated GFR > 60 Fasting Glucose 103 H Calcium 9.6 D Magnesium 2.1 Preliminary micro results at discharge 09/20/20 17:25 Blood Culture - Preliminary Blood - Venous No growth after 48 hours. 09/20/20 14:51 Blood Culture - Preliminary Blood - Venous No growth after 48 hours. Discharge Plan Discharge Patient Disposition: Home, Self-Care Discharge Diagnosis: Cellulitis in the setting of IVDU Referrals: [facility] [Other] - 1 Week (RESUMPTION OF YOUR [facility] FOR METHADONE DELIVERY AND MEDICATION ADMINISTRTION ) Aretha Macedo MD [Primary Care Provider] - 1 Week Discharge Medications: New doxycycline hyclate 100 mg tablet 100 mg PO BID Qty: 14 RF: 0 Continued quetiapine [Seroquel] 200 mg tablet 200 mg PO BEDTIME 30 Days Qty: 30 RF: 0 clonazepam 1 mg Tablet 0.5 mg PO BID PRN (Reason: anxiety) 30 Days Qty: 60 RF: 0 venlafaxine 150 mg Capsule,Extended Release 24hr 300 mg PO DAILY 30 Days Qty: 60 RF: 0 quetiapine 50 mg Tablet 50 mg PO TID PRN (Reason: Anxiety) 30 Days Qty: 90 RF: 0 Narcan 4 mg/actuation [place],Non-Aerosol 4 mg intranasal (ALT) ONCE PRN (Reason: opioid overdose) 1 Days Qty: 1 RF: 0 clonazepam 1 mg tablet 1 mg PO BEDTIME RF: 0 albuterol sulfate [ProAir HFA] 90 mcg/actuation HFA aerosol inhaler 2 puff inhalation Q4H PRN (Reason: Shortness Of Breath Or Wheezing) RF: 0 zolpidem [Ambien] 10 mg tablet 10 mg PO BEDTIME RF: 0 methadone solution 20 mg PO DAILY RF: 0 Discharge Orders: Discharge Order (Routine); Ordered 09/23/20 Ordered By: Delano Castellanos Diet: advance to usual diet Activity on Discharge: As tolerated Stand Alone Forms: Patient Portal Discharge page Care Plan Goals: To stay healthy and out of the hospital. Health Concerns: Cellulitis IVDU Plan of Treatment: Cellulitis - Take Doxycycline for 7 more days. If you have worsening pain, redness, fevers/chills or any other symptoms, return to the ED. IVDU - follow up at the Methadone clinic Assessment: 50 yo F admitted for cellulitis. Treated with vancomcyin with improvement in her symptoms. Evaluated by orthopedics and did not require any surgical intervention. Will be d/c home on oral doxycycline.
--- NOTE | 2020-09-23 09:57 | MHC.CM.PN ---
NURSE BOOKBINDER APPRENTICE NOTE ELECTRONIC MEDICAL RECORD REVIEWED, PATIENT WILL BE DISCHARGED HOME TOD SHE MADONNA AY WITH THE RESUMPTION OF HER [facility] AT HOME ,NURSE FOR HER DAILY METHADONE DELIVERY AND MEDICATION ADMINISTRATION TRANSPORTATION PATIENT TO SELF ARRANGE PCP PATIENT TO CONTACT FOR POST HOSPITLA DISCHARGE FOLLOW UP CALLED TO [facility] AND NOTIFIED OF THE DISCHAGRE HOME TODAY AND REQUESTED DAILY NURSING VISIT FOR HER METHADONE ADMINISTRATION , .
--- NOTE | 2020-09-23 10:25 | PM.EVENT ---
Event Note Date of Service: 09/23/20 Event Note: Resolving right hand cellulitis from IVDU No purulance or abscess formation. Recommend continue Abx and f/u with PCP
[2020-09-23 10:57] VITALS: BP 103/53; PULSE 63; RESP 15; TEMP 36.4; O2SAT 98
--- NOTE | 2020-09-23 12:25 | MHC.CM.PN ---
CASE MANAGEMENT VERIFIED THAT PATIENT CAN USE SHUTTLE TO TRANSPORT HOME TODAY TO [place]. FORM COMPLETD AND GIVEN TO RN. PATIENT TO BE DOWNSTAIRS BY 12:45 FOR TRANSPORT
== END 2020-09-23 13:02 | disposition home health service (06) | DRG 383 ==
LOC: HO.ED 17:27 → HO.S3 19:11
PROVIDERS: Internal Medicine; Physician Assistant; Admitting Provider Physician Assistant Medical; Emergency Provider Emergency Medicine; PCP Internal Medicine; Visit Provider Family Medicine
DX: L03.113 Cellulitis of right upper limb (principal); F11.20 Opioid dependence, uncomplicated; F32.9 Major depressive disorder, single episode, unspecified; F17.210 Nicotine dependence, cigarettes, uncomplicated; F19.10 Other psychoactive substance abuse, uncomplicated; Z20.822 Contact with and (suspected) exposure to COVID-19; Z88.2 Allergy status to sulfonamides; Z88.6 Allergy status to analgesic agent; Z79.899 Other long term (current) drug therapy
CPT/HCPCS: 36415; 73130; 80048; 80053; 80202; 83605; 83735; 85025; 85027; 85610; 85652; 85730; 86140; 87040; 87635; 93005; 96368; 96375; 99285; J1885; J2270; J2405; J2543; J3370

== ENCOUNTER 2020-10-25 13:45 | Emergency (ER) | payer OTHER, SELFPAY ==
[2020-10-25 13:52] VITALS: BP 121/83; BP 154/86; PULSE 82; PULSE 93; RESP 18; TEMP 37.6; O2SAT 98; BMI 23.0
--- NOTE | 2020-10-25 14:11 | ED.GENADULT ---
HPI - General Adult General Chief complaint: Skin/Abscess/Foreign Body Stated complaint: leg pain Time Seen by Provider: 10/25/20 14:00 Source: patient and EMS Mode of arrival: EMS History of Present Illness HPI narrative: 50-year-old female with a past medical history of asthma, COPD, substance abuse, PTSD, depression, BIBA c/o bilateral foot swelling, erythema, and pain x a couple days, and generalized malaise, nausea, vomiting, diarrhea, and chills x1 day. Admits does use IV cocaine in bilateral feet which occurred prior to foot symptoms. Denies fever, weakness, abdominal pain, chest pain, shortness of breath Is interested in talking about detox, denies other illicit drugs/substances Related Data Home Medications Medication Instructions Recorded Confirmed clonazepam 1 mg PO BEDTIME 05/28/20 09/20/20 albuterol sulfate [ProAir HFA] 2 puff INHALATION Q4H PRN 09/20/20 09/20/20 zolpidem [Ambien] 10 mg PO BEDTIME 09/20/20 09/20/20 methadone 20 mg PO DAILY 09/21/20 09/21/20 Previous Rx's Medication Instructions Recorded Narcan 4 mg INTRANASAL (ALT) ONCE PRN 1 03/15/20 Days #1 ea clonazepam 0.5 mg PO BID PRN 30 Days #60 tab 03/15/20 quetiapine 50 mg PO TID PRN 30 Days #90 tab 03/15/20 quetiapine [Seroquel] 200 mg PO BEDTIME 30 Days #30 tab 03/15/20 venlafaxine 300 mg PO DAILY 30 Days #60 cap 03/15/20 doxycycline hyclate 100 mg PO BID #14 tab 09/23/20 cephalexin 500 mg PO QID 7 Days #28 cap 10/25/20 doxycycline hyclate 100 mg PO BID 7 Days #14 tab 10/25/20 Allergies Allergy/AdvReac Type Severity Reaction Status Date / Time trazodone [TRAZODONE] Allergy Severe SHORTNESS Verified 04/10/20 13:21 OF BREATH, GASPING FOR AIR , SOB aspirin [ASPIRIN] Allergy Unknown STOMACH Verified 04/10/20 13:21 UPSET, Nausea, nausa ciprofloxacin [Cipro] Allergy Unknown Rash Verified 04/10/20 13:21 promethazine [Phenergan] Allergy Unknown Hives Verified 04/10/20 13:21 Sulfa (Sulfonamide Allergy Unknown Unknown Verified 04/10/20 13:21 Antibiotics) Review of Systems Review of Systems: Constitutional: No Fever, + Chills, + Fatigue, No Malaise Cardiovascular: No Chest Pain, No SOB, + Edema Respiratory: No Cough, No Dyspnea Gastrointestinal: + Nausea, + Vomiting, + Diarrhea, No Constipation, No Abdominal pain, No Hematochezia, No Melena Genitourinary: No Dysuria, No Urinary Frequency, No Hematuria Musculoskeletal: + joint pain, No Myalgias, No Joint Swelling Skin: No Skin Lesions, No rash Neuro: No Weakness, No Numbness, + paresthesias, + Headache Yes all other systems are reviewed and are negative [facility] Past Medical History Attestation statement: The following information was validated with the patient. Medical History (Updated 10/25/20 @ 17:38 by DINESH Woods) Asthma Cocaine use disorder, moderate, dependence COPD (chronic obstructive pulmonary disease) Major depression, recurrent Opioid use disorder, severe, dependence Post traumatic stress disorder Social History Social History Household Members: None Housing: Apartment Do you presently have visiting nurse or other home services: Yes 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: never Patient Tobacco Use Status: Current everyday Tobacco user Cigarette Packs Per Day: 0 Cigarettes Per Day: 10 Years Smoked: whole life Second Hand Smoke Exposure: No Substance Use Type: Crack/Cocaine Advance Directives: No Advance Directives Information Provided: No Advance Directives Date on File: 09/20/20 service: No Current occupational status: disabled Sexual orientation: Straight/Heterosexual Physical Exam Vital Signs: Vital Signs: Last Vital Signs Temp 99.7 F 10/25/20 13:52 Pulse 82 10/25/20 13:52 Resp 18 10/25/20 13:52 BP 121/83 10/25/20 13:52 Body Mass Index 23.0 Const: General: cooperative and healthy appearing Orientation/consciousness: patient oriented x3 Limitations: no limitations HENMT: Head: Yes normal to inspection Ears: hearing grossly normal bilaterally General nose exam: Normal external nose present Face and sinus: Yes normal facial exam Eyes: General: appearance normal, both eyes and all related structures EOM: EOMs intact bilaterally Neck: Neck: Yes normal visual inspection Resp: Effort & Inspection: normal respiratory effort Auscultation: clear to auscultation bilaterally Cardio: Rate: regular rate Heart sounds: S1 normal heart sound present and S2 normal heart sound present GI: Inspection: Yes normal to inspection Palpation (GI): Soft to palpation, nontender, no guarding and not rigid Skin: Rashes: no rashes Neuro: General: patient oriented x3 Gait exam (Neuro): Normal gait present Extrem: Other: Bilateral feet with mild swelling and erythema. Track larson noted to dorsal aspect of right foot. No fluctuance or induration. No streaking. NV intact. Course Course Course Narrative: -no leukocytosis, ESR elevated to 40 (chronically elevated), CRP mildly elevated (improved from priors) >> results discussed with patient, patient reporting she needs IV antibiotics and admission, discussed with her that she does not require admission at this time, can initiate p.o. antibiotics, offered 1st dose in the ED, patient got very upset, refused dose in the ED, also stated not to send antibiotics to the pharmacy that she would just come back in a couple days. Discussed with her that infection would get worse and she would require IV antibiotics in a couple days if she did not take p.o. antibiotics. Told patient she is welcome to return, stressed importance of returning if symptoms persist or worsen, especially if she is not compliant with antibiotics. Patient proceeded to elope the ED. I will still send antibiotics to the pharmacy anyway Medical Decision Making MDM Narrative Medical decision making narrative: 50-year-old female with a past medical history of asthma, COPD, substance abuse, PTSD, depression, BIBA c/o bilateral foot swelling, erythema, and pain x a couple days, and generalized malaise, nausea, vomiting, diarrhea, and chills x1 day. On exam VS, NAD/nontoxic, physical exam as above. Concern for early cellulitis. No evidence of abscess. Low concern for severe sepsis. Plan: Labs, lactic, blood cultures, reassess Lab Data Result diagrams: 10/25/20 15:21 10/25/20 15:21 Labs: Lab Results 10/25/20 10/25/20 10/25/20 Range/Units 15:21 15:21 15:21 WBC 8.3 (4.8-10.8) X10*3/uL RBC 4.78 (4.20-5.50) X10*6/uL Hgb 12.9 (12.0-16.0) g/dl Hct 40.6 (37-47) % MCV 84.9 (80-98) fL MCH 27.0 (27.0-33.0) pg MCHC 31.8 (31.0-35.0) g/dl RDW 16.5 H (11.0-16.0) % Plt Count 301 D (160-400) X10*3/uL MPV 11.3 (9.4-12.3) fL Immature Gran % (Auto) 0.4 (0.0-0.4) % Neut % (Auto) 75.8 H (45-73) % Lymph % (Auto) 18.5 L (20-40) % [place] % (Auto) 5.2 (2-11) % Eos % (Auto) 0.0 (0-4) % Baso % (Auto) 0.1 (0-2) % Lymph # (Auto) 1.5 (1.2-4.9) X10*3/uL [place] # (Auto) 0.4 (0.1-1.2) X10*3/uL Eos # (Auto) 0.0 (0.0-0.4) X10*3/uL Baso # (Auto) 0.0 (0.0-0.2) X10*3/uL Abs Immat Gran (auto) 0.03 (0.00-0.03) X10*3/uL Absolute Neuts (auto) 6.3 (2.0-8.3) X10*3/uL Absolute Nucleated RBC 0.000 (0.0-0.012) X10*3/uL Nucleated RBC % (auto) 0.0 (0.0-0.2) /100WBC ESR 40 H (0-20) MM/HR Sodium 142 (135-145) mmol/L Potassium 4.1 (3.3-5.1) mmol/L Chloride 104 (96-108) mmol/L Carbon Dioxide 26 (22-29) mmol/L Anion Gap 16 (12-20) BUN 18 H (9-16) mg/dL Creatinine 0.82 (0.5-1.4) mg/dL Estim Creat Clear Calc 67.8 Estimated GFR > 60 Random Glucose 84 (60-115) mg/dL Lactic Acid (0.5-2.0) mmol/L Calcium 10.7 H D (8.4-10.2) mg/dL Magnesium 2.3 (1.6-2.6) mg/dL Total Bilirubin 0.8 (0.0-1.0) mg/dL Direct Bilirubin 0.2 (0.0-0.5) mg/dL AST 18 (5-31) U/L ALT 10 (0-31) U/L Alkaline Phosphatase 145 H (39-117) U/L C-Reactive Protein 0.86 H (< or = 0.50) mg/dL Total Protein 8.8 H (6.5-8.0) g/dL Albumin 4.8 (3.5-5.0) g/dL Lipase 21 (8-78) U/L 10/25/20 10/25/20 Range/Units 15:21 15:21 WBC (4.8-10.8) X10*3/uL RBC (4.20-5.50) X10*6/uL Hgb (12.0-16.0) g/dl Hct (37-47) % MCV (80-98) fL MCH (27.0-33.0) pg MCHC (31.0-35.0) g/dl RDW (11.0-16.0) % Plt Count (160-400) X10*3/uL MPV (9.4-12.3) fL Immature Gran % (Auto) (0.0-0.4) % Neut % (Auto) (45-73) % Lymph % (Auto) (20-40) % [place] % (Auto) (2-11) % Eos % (Auto) (0-4) % Baso % (Auto) (0-2) % Lymph # (Auto) (1.2-4.9) X10*3/uL [place] # (Auto) (0.1-1.2) X10*3/uL Eos # (Auto) (0.0-0.4) X10*3/uL Baso # (Auto) (0.0-0.2) X10*3/uL Abs Immat Gran (auto) (0.00-0.03) X10*3/uL Absolute Neuts (auto) (2.0-8.3) X10*3/uL Absolute Nucleated RBC (0.0-0.012) X10*3/uL Nucleated RBC % (auto) (0.0-0.2) /100WBC ESR (0-20) MM/HR Sodium (135-145) mmol/L Potassium (3.3-5.1) mmol/L Chloride (96-108) mmol/L Carbon Dioxide (22-29) mmol/L Anion Gap (12-20) BUN (9-16) mg/dL Creatinine (0.5-1.4) mg/dL Estim Creat Clear Calc Estimated GFR Random Glucose (60-115) mg/dL Lactic Acid 1.1 (0.5-2.0) mmol/L Calcium (8.4-10.2) mg/dL Magnesium (1.6-2.6) mg/dL Total Bilirubin (0.0-1.0) mg/dL Direct Bilirubin (0.0-0.5) mg/dL AST (5-31) U/L ALT (0-31) U/L Alkaline Phosphatase (39-117) U/L C-Reactive Protein (< or = 0.50) mg/dL Total Protein (6.5-8.0) g/dL Albumin (3.5-5.0) g/dL Lipase Cancelled (8-78) U/L Discharge Plan Discharge Clinical Impression: Cellulitis Patient Disposition: Elopement Instructions: Cellulitis (ED) Additional Instructions: You have early cellulitis of her bilateral feet. Doxycycline and Keflex for antibiotics please take as prescribed Please return to the ED if her symptoms persist or worsen or if you develop fever Prescriptions: New cephalexin 500 mg capsule 500 mg PO QID 7 Days Qty: 28 RF: 0 doxycycline hyclate 100 mg tablet 100 mg PO BID 7 Days Qty: 14 RF: 0 No Action quetiapine [Seroquel] 200 mg tablet 200 mg PO BEDTIME 30 Days Qty: 30 RF: 0 clonazepam 1 mg Tablet 0.5 mg PO BID PRN (Reason: anxiety) 30 Days Qty: 60 RF: 0 venlafaxine 150 mg Capsule,Extended Release 24hr 300 mg PO DAILY 30 Days Qty: 60 RF: 0 quetiapine 50 mg Tablet 50 mg PO TID PRN (Reason: Anxiety) 30 Days Qty: 90 RF: 0 Narcan 4 mg/actuation [place],Non-Aerosol 4 mg intranasal (ALT) ONCE PRN (Reason: opioid overdose) 1 Days Qty: 1 RF: 0 clonazepam 1 mg tablet 1 mg PO BEDTIME RF: 0 albuterol sulfate [ProAir HFA] 90 mcg/actuation HFA aerosol inhaler 2 puff inhalation Q4H PRN (Reason: Shortness Of Breath Or Wheezing) RF: 0 zolpidem [Ambien] 10 mg tablet 10 mg PO BEDTIME RF: 0 methadone solution 20 mg PO DAILY RF: 0 doxycycline hyclate 100 mg tablet 100 mg PO BID Qty: 14 RF: 0 Referrals: ED Physician,Jonny [Emergency Provider] - 2 days Aretha Macedo MD [Primary Care Provider] - 2 days
[2020-10-25] MEDS: 0.9 % Sodium Chloride 1,000 ML 999 ML IVCONT (15:27)
[2020-10-25 15:31] LABS: MANUAL DIFF FLAG NO
[2020-10-25 15:32] LABS: Basophils Percent Auto 0.1 % (0-2); Hematocrit 40.6 % (37-47); Hemoglobin 12.9 g/dl (12.0-16.0); Imm Gran Abs Auto 0.03 X10*3/uL (0.00-0.03); Imm Gran Pct Auto 0.4 % (0.0-0.4); Lymphocytes Absolute Auto 1.5 X10*3/uL (1.2-4.9); Lymphocytes Percent Auto 18.5 % (20-40); Mean Corpuscular HGB Conc 31.8 g/dl (31.0-35.0); Mean Corpuscular Volume 84.9 fL (80-98); Mean Platelet Volume 11.3 fL (9.4-12.3); Monocytes Absolute Auto 0.4 X10*3/uL (0.1-1.2); Monocytes Percent Auto 5.2 % (2-11); Neutrophils Absolute Auto 6.3 X10*3/uL (2.0-8.3); Neutrophils Percent Auto 75.8 % (45-73); Platelet Count 301 X10*3/uL (160-400); Red Blood Count 4.78 X10*6/uL (4.20-5.50); Red Cell Distribution Width 16.5 % (11.0-16.0); White Blood Count 8.3 X10*3/uL (4.8-10.8)
--- NOTE | 2020-10-25 15:59 | PC.NURSE ---
pt states she injects cocaine vaibhav her feet. She states she has tried stopping drugs but friends encourage her to use. She states she has had infections in the past from IVDU and states understanding of risks involved with the behavior. Pt awake, oriented, calm and cooperative. IV placed under ultrasound, pt getting IVF
[2020-10-25 16:02] LABS: Lactic Acid 1.1 mmol/L (0.5-2.0)
[2020-10-25 16:14] LABS: Alanine Aminotransferase 10 U/L (0-31); Albumin Level 4.8 g/dL (3.5-5.0); Alkaline Phosphatase 145 U/L (39-117); Anion Gap 16 (12-20); Aspartate Amino Transferase 18 U/L (5-31); Bilirubin Direct 0.2 mg/dL (0.0-0.5); Bilirubin Total 0.8 mg/dL (0.0-1.0); Blood Urea Nitrogen 18 mg/dL (9-16); C Reactive Protein 0.86 mg/dL (< or = 0.50); Calcium 10.7 mg/dL (8.4-10.2); Carbon Dioxide 26 mmol/L (22-29); Chloride 104 mmol/L (96-108); Creatinine Clr Calc Pharmacy 67.8; Estimated Glomerular Filt Rate > 60; Glucose Random 84 mg/dL (60-115); Lipase 21 U/L (8-78); Magnesium 2.3 mg/dL (1.6-2.6); Potassium 4.1 mmol/L (3.3-5.1); Sodium 142 mmol/L (135-145); Total Protein 8.8 g/dL (6.5-8.0)
[2020-10-25 16:18] LABS: Erythrocyte Sedimentation Rate 40 MM/HR (0-20)
--- NOTE | 2020-10-25 17:26 | PC.NURSE ---
pt has refused tylenol, states she was wanting real pain medication. She is also stating she wants to leave and is threatening to walk out. Provider aware.
--- NOTE | 2020-10-25 18:13 | PC.NURSE ---
pt refused all antibiotics and further treatment and left.Provider spoke with pt who would not stay for treatment.
== END 2020-10-25 18:16 | disposition left against medical advice (07) ==
PROVIDERS: Physician Assistant; Emergency Provider Internal Medicine; PCP Internal Medicine
DX: L03.116 Cellulitis of left lower limb (principal); L03.115 Cellulitis of right lower limb; J44.9 Chronic obstructive pulmonary disease, unspecified; Z79.899 Other long term (current) drug therapy
CPT/HCPCS: 36415; 80048; 80076; 83605; 83690; 83735; 85025; 85652; 86140; 87040; 96360; 99284

== ENCOUNTER 2021-01-14 02:08 | Emergency (ER) | payer OTHER, SELFPAY ==
[2021-01-14 02:22] VITALS: BP 106/70; BP 93/60; PULSE 72; PULSE 84; RESP 16; TEMP 36.5; O2SAT 94; O2SAT 97; BMI 23.0
[2021-01-14 03:13] VITALS: BP 90/52; PULSE 68; RESP 15; O2SAT 92
[2021-01-14 06:45] VITALS: BP 90/54; PULSE 65; RESP 13; O2SAT 100
--- NOTE | 2021-01-14 06:47 | ED.OVERDOSE ---
HPI - Overdose General Chief Complaint: Overdose Stated Complaint: DRUG USE Time Seen by Provider: 01/14/21 06:10 Source: patient and EMS Mode of arrival: EMS Limitations: no limitations History of Present Illness HPI Narrative: pt comes to the Ed after being found unconscious by a neighbor. The patient's neighbor called EMS, on their arrival they gave the patient 4 mg of nasal Narcan, patient woke up immediately, vomited, no other complaints under to the hospital. Patient admits to using heroin prior to arrival. Patient denies falls, no head injury, not on blood thinners. Patient denies suicidal or homicidal ideation Related Data Home Medications Medication Instructions Recorded Confirmed clonazepam 1 mg tablet 1 mg PO BEDTIME 05/28/20 09/20/20 albuterol sulfate 90 mcg/actuation 2 puff INHALATION Q4H PRN 09/20/20 09/20/20 aerosol inhaler (ProAir HFA) zolpidem 10 mg tablet (Ambien) 10 mg PO BEDTIME 09/20/20 09/20/20 methadone 20 mg PO DAILY 09/21/20 09/21/20 Previous Rx's Medication Instructions Recorded clonazepam 1 mg tablet 0.5 mg PO BID PRN 30 Days #60 tab 03/15/20 naloxone 4 mg/actuation nasal 4 mg INTRANASAL (ALT) ONCE PRN 1 03/15/20 spray (Narcan) Days #1 ea quetiapine 200 mg tablet (Seroquel) 200 mg PO BEDTIME 30 Days #30 tab 03/15/20 quetiapine 50 mg tablet 50 mg PO TID PRN 30 Days #90 tab 03/15/20 venlafaxine 150 mg 300 mg PO DAILY 30 Days #60 cap 03/15/20 capsule,extended release 24 hr doxycycline hyclate 100 mg tablet 100 mg PO BID #14 tab 09/23/20 cephalexin 500 mg capsule 500 mg PO QID 7 Days #28 cap 10/25/20 doxycycline hyclate 100 mg tablet 100 mg PO BID 7 Days #14 tab 10/25/20 Allergies Allergy/AdvReac Type Severity Reaction Status Date / Time trazodone [TRAZODONE] Allergy Severe SHORTNESS Verified 01/14/21 02:23 OF BREATH, GASPING FOR AIR , SOB aspirin [ASPIRIN] Allergy Unknown STOMACH Verified 01/14/21 02:23 UPSET, Nausea, nausa ciprofloxacin [Cipro] Allergy Unknown Rash Verified 01/14/21 02:23 promethazine [Phenergan] Allergy Unknown Hives Verified 01/14/21 02:23 Sulfa (Sulfonamide Allergy Unknown Unknown Verified 01/14/21 02:23 Antibiotics) Review of Systems Review of Systems: Constitutional : No Weight loss, No Fever, No Chills, No Night Sweats, No Fatigue, No Malaise ENT/Mouth : No Hearing loss, No Ear Pain, No Nasal Congestion, No Sinus Pain, No Hoarseness, No sore throat, No Rhinorrhea, No Swallowing Difficulty Eyes: No Eye Pain, No Swelling, No Redness, No Foreign Body, No Discharge, No Vision Changes Cardiovascular : No Chest Pain, No SOB, No Dyspnea on Exertion, No Orthopnea, No Edema, No Palpitations Respiratory : No Cough, No Sputum, No Wheezing, No Smoke Exposure, No Dyspnea Gastrointestinal : No Nausea, No Vomiting, No Diarrhea, No Constipation, No abdominal Pain, No Hematochezia, No Melena Genitourinary : no irregular bleeding, No Dysuria, No Urinary Frequency, No Hematuria, No Urinary Incontinence, No Urgency, No Flank Pain, No Urinary Flow Changes, No Hesitancy Musculoskeletal : No joint pain, No Myalgias, No Joint Swelling Skin : No Skin Lesions, No rash Neuro : No Weakness, No Numbness, No Paresthesias, No Loss of Consciousness, No Dizziness, No Headache Psych : No Anxiety/Panic, No Depression, No SI/HI/AH/VH, No Social Issues, Heme/Lymph: No Bruising, No Bleeding,No Lymphadenopathy Endocrine : No Polyuria, No Polydipsia, No Temperature Intolerance [facility] Past Medical History Medical History Asthma Cocaine use disorder, moderate, dependence COPD (chronic obstructive pulmonary disease) Major depression, recurrent Opioid use disorder, severe, dependence Post traumatic stress disorder Social History Social History Household Members: None Housing: Apartment Do you presently have visiting nurse or other home services: Yes 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: never Patient Tobacco Use Status: Current everyday Tobacco user Cigarette Packs Per Day: 0 Cigarettes Per Day: 10 Years Smoked: whole life Second Hand Smoke Exposure: No Substance Use Type: Crack/Cocaine Advance Directives: Yes Advance Directives on File: Yes Advance Directives Date on File: 09/20/20 Patient : No service: No Current occupational status: disabled Sexual orientation: Straight/Heterosexual Physical Exam Vital Signs: Vital Signs: Last Vital Signs Temp 97.7 F 01/14/21 02:22 Pulse 65 01/14/21 06:45 Resp 13 01/14/21 06:45 BP 90/54 L 01/14/21 06:45 Pulse Ox 100 01/14/21 06:45 Body Mass Index 23.0 Const: Other: Appearance: Alert. Somnolent, easily arousable, calm and cooperative Eyes: Pupils equal, round and reactive to light. ENT: Pharynx normal. Neck: Normal inspection. Neck supple. No lymph nodes noted. No crepitus CVS: Normal heart rate and rhythm. Pulses normal. Normal S1 and S2 Respiratory: No respiratory distress. Breath sounds normal. No Wheezing. No rales Abdomen: Soft and nontender. No rigidity. No distention. good BS x4 Skin: Skin warm and dry. Normal skin color. Normal skin turgor. Extremities: No lower extremity edema. No lower extremity edema. No Lacerations. No Rash Neuro: Oriented X 3. No motor deficit. No sensory deficit. Moving all extermities. No slurred speech. Cranial nerves 2-12 grossly intact Course Course Course Narrative: Patient remains somnolent, easily arousable, oxygen saturation in the high 90s on room air. Patient will metabolize to freedom, then she can be discharged. Patient denies SI or HI Sign-out given to Dr. Choi Discharge Plan Discharge Clinical Impression: Drug overdose, Heroin abuse Patient Disposition: Home, Self-Care Instructions: Adult Overdose (ED) Additional Instructions: Please follow-up with your primary care physician tomorrow. If you have any worsening or new symptoms, please return to the emergency room or call 911 Prescriptions: No Action cephalexin 500 mg capsule 500 mg PO QID 7 Days Qty: 28 RF: 0 doxycycline hyclate 100 mg tablet 100 mg PO BID 7 Days Qty: 14 RF: 0 quetiapine [Seroquel] 200 mg tablet 200 mg PO BEDTIME 30 Days Qty: 30 RF: 0 clonazepam 1 mg Tablet 0.5 mg PO BID PRN (Reason: anxiety) 30 Days Qty: 60 RF: 0 venlafaxine 150 mg Capsule,Extended Release 24hr 300 mg PO DAILY 30 Days Qty: 60 RF: 0 quetiapine 50 mg Tablet 50 mg PO TID PRN (Reason: Anxiety) 30 Days Qty: 90 RF: 0 Narcan 4 mg/actuation Doran,Non-Aerosol 4 mg intranasal (ALT) ONCE PRN (Reason: opioid overdose) 1 Days Qty: 1 RF: 0 clonazepam 1 mg tablet 1 mg PO BEDTIME RF: 0 albuterol sulfate [ProAir HFA] 90 mcg/actuation HFA aerosol inhaler 2 puff inhalation Q4H PRN (Reason: Shortness Of Breath Or Wheezing) RF: 0 zolpidem [Ambien] 10 mg tablet 10 mg PO BEDTIME RF: 0 methadone solution 20 mg PO DAILY RF: 0 doxycycline hyclate 100 mg tablet 100 mg PO BID Qty: 14 RF: 0
--- NOTE | 2021-01-14 06:48 | PC.NURSE ---
PT WAKES TO VOICE AND TOUCH. PT GIVEN ICEWATER, SWALLOWS WITHOUT COUGHING OR CHOKING.
[2021-01-14 08:20] VITALS: BP 90/54; PULSE 70; RESP 16
== END 2021-01-14 08:22 | disposition home or self-care (01) ==
PROVIDERS: Emergency Provider Emergency Medicine
DX: T40.1X1A Poisoning by heroin, accidental (unintentional), initial encounter (principal); R40.0 Somnolence; Y92.410 Unspecified street and highway as the place of occurrence of the external cause; F19.10 Other psychoactive substance abuse, uncomplicated; F14.20 Cocaine dependence, uncomplicated; F11.20 Opioid dependence, uncomplicated; F17.210 Nicotine dependence, cigarettes, uncomplicated
CPT/HCPCS: 99282; 99284

== ENCOUNTER 2021-06-23 16:18 | Inpatient (IN) | payer OTHER, SELFPAY ==
--- NOTE | 2021-06-23 | ECG_ITS ---
Test Reason : med clearance Blood Pressure : / mmHG Vent. Rate : 078 BPM Atrial Rate : 078 BPM P-R Int : 174 ms QRS Dur : 088 ms QT Int : 408 ms P-R-T Axes : 061 039 027 degrees QTc Int : 465 ms Normal sinus rhythm Normal ECG When compared with ECG of 21-SEP-2020 13:59, T wave inversion no longer evident in Anterior leads Referred By: Pilar Powers Electronically Signed By:CHADWICK CARIAS MD
--- NOTE | 2021-06-23 16:23 | MHC.CARE ---
CARE team was contacted by Boris- pt was evaluated in the community and arrives as in inpt psych bedsearch. Plan is for pt to be admitted to this evening pending medical clearance.
--- NOTE | 2021-06-23 16:31 | ED_ITS ---
HPI - Psych General Chief Complaint: Psychiatric Symptoms Stated Complaint: SECTION 12 BY CONYN,SEEN IN COMM,BED SEARCH IN PROG Source: patient and EMS Mode of arrival: EMS Limitations: no limitations History of Present Illness HPI Narrative: 51-year-old female presents via EMS on a Section 12 from the community. Patient is suicidal, homicidal, and requesting detox. Patient admits to using approximately 4 bags of heroin and cocaine this morning MD complaint: suicidal ideation, feels depressed, homicidal ideation, anxiety, substance abuse and alcohol abuse Onset (ago): unknown Duration: constant History of same: Yes Relieving factors: none Exacerbating factors: alcohol and drug use Context: recent alcohol abuse, recent drug abuse and significant life stressor Associated psychiatric symptoms: depression, suicidal ideation, homicidal ideation and racing thoughts Associated symptoms: denies other symptoms Treatments prior to arrival: placed on mental health hold If self harm: admits thoughts of self harm Related Data Home Medications Medication Instructions Recorded Confirmed clonazepam 1 mg tablet 1 mg PO BEDTIME 05/28/20 06/23/21 albuterol sulfate 90 mcg/actuation 2 puff INHALATION Q4H PRN 09/20/20 06/23/21 aerosol inhaler (ProAir HFA) zolpidem 10 mg tablet (Ambien) 10 mg PO BEDTIME 09/20/20 06/23/21 methadone 20 mg PO DAILY 09/21/20 09/21/20 clonazepam 1 mg tablet 0.5 mg PO BID 06/23/21 06/23/21 Previous Rx's Medication Instructions Recorded naloxone 4 mg/actuation nasal 4 mg INTRANASAL (ALT) ONCE PRN 1 03/15/20 spray (Narcan) Days #1 ea quetiapine 200 mg tablet (Seroquel) 200 mg PO BEDTIME 30 Days #30 tab 03/15/20 quetiapine 50 mg tablet 50 mg PO TID PRN 30 Days #90 tab 03/15/20 venlafaxine 150 mg 300 mg PO DAILY 30 Days #60 cap 03/15/20 capsule,extended release 24 hr Allergies Allergy/AdvReac Type Severity Reaction Status Date / Time trazodone [TRAZODONE] Allergy Severe SHORTNESS Verified 01/14/21 02:23 OF BREATH, GASPING FOR AIR , SOB aspirin [ASPIRIN] Allergy Unknown STOMACH Verified 01/14/21 02:23 UPSET, Nausea, nausa ciprofloxacin [Cipro] Allergy Unknown Rash Verified 01/14/21 02:23 promethazine [Phenergan] Allergy Unknown Hives Verified 01/14/21 02:23 Sulfa (Sulfonamide Allergy Unknown Unknown Verified 01/14/21 02:23 Antibiotics) Review of Systems Review of Systems: Constitutional: No Fever, No Chills ENT/Mouth: No Ear Pain, No Nasal Congestion, No sore throat Eyes: No Eye Pain, No Swelling, No Redness Cardiovascular: No Chest Pain, No SOB Respiratory: No Cough, No Sputum, No Dyspnea Gastrointestinal: No Nausea, No Vomiting, No Diarrhea, No Hematochezia, No Melena Genitourinary: No Dysuria, No Urinary Frequency, No Hematuria Musculoskeletal: No Myalgias Skin: No Skin Lesions, No rash Neuro: No Weakness, No Numbness, No Paresthesias, No Dizziness, No Headache Psych: positive Anxiety, positive Depression, positive SI, positive HI, positive polysubstance abuse Heme/Lymph: No Lymphadenopathy Endocrine: No Polyuria, No Polydipsia Yes all other systems are reviewed and are negative [facility] Past Medical History Attestation statement: The following information was validated with the patient. Source: old records reviewed Medical History Asthma Cocaine use disorder, moderate, dependence COPD (chronic obstructive pulmonary disease) Major depression, recurrent Opioid use disorder, severe, dependence Post traumatic stress disorder Social History Social History Household Members: None Housing: Apartment Do you presently have visiting nurse or other home services: Yes 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: never Patient Tobacco Use Status: Current everyday Tobacco user Cigarette Packs Per Day: 0 Cigarettes Per Day: 10 Years Smoked: whole life Second Hand Smoke Exposure: No Substance Use Type: Crack/Cocaine Advance Directives: Yes Advance Directives Information Provided: No Advance Directives on File: No Advance Directives Date on File: 09/20/20 Patient : No service: No Current occupational status: disabled Sexual orientation: Straight/Heterosexual Physical Exam Vital Signs: Vital Signs: Last Vital Signs Temp 97.9 F 06/23/21 16:38 Pulse 74 06/23/21 16:38 Resp 18 06/23/21 16:38 BP 125/76 06/23/21 16:38 Pulse Ox 97 06/23/21 16:38 BMI result Body Mass Index 23.0 Appearance: Alert. Oriented X3. Moderate emotional distress. Eyes: Pupils equal, round and reactive to light. EOMI. Sclera nonicteric. ENT: Pharynx normal. Moist mucous membranes. Neck: Normal inspection. Neck supple. CVS: Normal heart rate and rhythm. Pulses normal. Respiratory: No respiratory distress. Breath sounds normal. Abdomen: Soft and nontender. Skin: Skin warm and dry. Normal skin color. Normal skin turgor. Extremities: No lower extremity edema. Gait well-balanced well coordinated. Neuro: No motor deficit. No sensory deficit. Cranial nerves 2-12 intact. Course Course Course Narrative: 51-year-old female presents via EMS on section 12 bed search for suicidal ideation, homicidal ideation, polysubstance abuse. Patient is seeking detox. States have used 4 bags of heroin and some cocaine rocks earlier today. Will order labs, crisis consult, section 12 bed search. Midnight patient transported to . MDM - Psych Differential Diagnosis Differential diagnosis: Likely acute psychosis, homicidal ideation, suicidal ideation, depression, drug-induced psychotic disorder, acute anxiety, substance abuse and alcohol intoxication Medical Records Attestation: I reviewed the patient's medical records. Lab Data Attestation: I reviewed the patient's lab results. Result diagrams: 06/23/21 19:02 06/23/21 19:02 Labs: Lab Results 06/23/21 06/23/21 06/23/21 Range/Units 17:46 17:48 19:02 WBC (4.8-10.8) X10*3/uL RBC (4.20-5.50) X10*6/uL Hgb (12.0-16.0) g/dl Hct (37.0-47.0) % MCV (80.0-98.0) fL MCH (27.0-33.0) pg MCHC (31.0-35.0) g/dl RDW (11.0-16.0) % Plt Count (160-400) X10*3/uL MPV (9.4-12.3) fL Immature Gran % (Auto) (0.0-0.4) % Neut % (Auto) (45-73) % Lymph % (Auto) (20-40) % [place] % (Auto) (2-11) % Eos % (Auto) (0-4) % Baso % (Auto) (0-2) % Lymph # (Auto) (1.2-4.9) X10*3/uL [place] # (Auto) (0.1-1.2) X10*3/uL Eos # (Auto) (0.0-0.4) X10*3/uL Baso # (Auto) (0.0-0.2) X10*3/uL Abs Immat Gran (auto) (0.00-0.03) X10*3/uL Absolute Neuts (auto) (2.0-8.3) x10*3/uL Absolute Nucleated RBC (0.0-0.012) X10*3/uL Nucleated RBC % (auto) (0.0-0.2) /100WBC Sodium 140 (135-145) mmol/L Potassium 3.3 (3.3-5.1) mmol/L Chloride 105 (96-108) mmol/L Carbon Dioxide 23 (22-29) mmol/L Anion Gap 15 (12-20) BUN 17 H (9-16) mg/dL Creatinine 0.67 (0.5-1.4) mg/dL Estim Creat Clear Calc 82.1 Estimated GFR > 60 Random Glucose 134 H (60-115) mg/dL Calcium 10.4 H (8.4-10.2) mg/dL Total Bilirubin 0.5 (0.0-1.0) mg/dL AST 15 (5-31) U/L ALT 8 (0-31) U/L Alkaline Phosphatase 90 D (39-117) U/L Total Protein 7.8 (6.5-8.0) g/dL Albumin 4.2 (3.5-5.0) g/dL Urine Color YELLOW Urine Appearance HAZY Urine pH 6.0 (5.0-8.0) Ur Specific [place] >= 1.030 H (1.005-1.025) Urine Protein TRACE (NEG-TRACE) MG/DL Urine Glucose (UA) NEG (NEG) MG/DL Urine Ketones 15 (NEG) MG/DL Urine Blood TRACE (NEG) Urine Nitrite NEG (NEG) Ur Leukocyte Esterase NEG (NEG) Urine RBC 0-2 (0) /HPF Urine WBC 0-2 (0-4) /HPF Ur Squamous Epith Cells 3+ /LPF Calcium Oxalate Crystal 2+ /LPF Amorphous Sediment 1+ /LPF Urine Bacteria NONE /LPF Urine Mucus 3+ /LPF Urine Opiates Screen POSITIVE H (Not Detect) Urine Fentanyl Screen POSITIVE H (Not Detect) Ur Barbiturates Screen Not Detected (Not Detect) Ur Phencyclidine Scrn Not Detected (Not Detect) Ur Amphetamines Screen Not Detected (Not Detect) U Benzodiazepines Scrn Not Detected (Not Detect) Urine Cocaine Screen POSITIVE H (Not Detect) U Marijuana (THC) Screen Not Detected (Not Detect) Ethyl Alcohol mg/dL COVID-19 (SAMANTHA) (Negative) COVID-19 Clin Com 06/23/21 06/23/21 06/23/21 Range/Units 19:02 19:02 20:46 WBC 9.8 (4.8-10.8) X10*3/uL RBC 4.20 (4.20-5.50) X10*6/uL Hgb 11.7 L (12.0-16.0) g/dl Hct 35.5 L (37.0-47.0) % MCV 84.5 (80.0-98.0) fL MCH 27.9 (27.0-33.0) pg MCHC 33.0 (31.0-35.0) g/dl RDW 15.3 (11.0-16.0) % Plt Count 265 (160-400) X10*3/uL MPV 11.7 (9.4-12.3) fL Immature Gran % (Auto) 0.4 (0.0-0.4) % Neut % (Auto) 66.1 (45-73) % Lymph % (Auto) 25.1 (20-40) % [place] % (Auto) 8.2 (2-11) % Eos % (Auto) 0.0 (0-4) % Baso % (Auto) 0.2 (0-2) % Lymph # (Auto) 2.5 (1.2-4.9) X10*3/uL [place] # (Auto) 0.8 (0.1-1.2) X10*3/uL Eos # (Auto) 0.0 (0.0-0.4) X10*3/uL Baso # (Auto) 0.0 (0.0-0.2) X10*3/uL Abs Immat Gran (auto) 0.04 H (0.00-0.03) X10*3/uL Absolute Neuts (auto) 6.4 (2.0-8.3) x10*3/uL Absolute Nucleated RBC 0.000 (0.0-0.012) X10*3/uL Nucleated RBC % (auto) 0.0 (0.0-0.2) /100WBC Sodium (135-145) mmol/L Potassium (3.3-5.1) mmol/L Chloride (96-108) mmol/L Carbon Dioxide (22-29) mmol/L Anion Gap (12-20) BUN (9-16) mg/dL Creatinine (0.5-1.4) mg/dL Estim Creat Clear Calc Estimated GFR Random Glucose (60-115) mg/dL Calcium (8.4-10.2) mg/dL Total Bilirubin (0.0-1.0) mg/dL AST (5-31) U/L ALT (0-31) U/L Alkaline Phosphatase (39-117) U/L Total Protein (6.5-8.0) g/dL Albumin (3.5-5.0) g/dL Urine Color Urine Appearance Urine pH (5.0-8.0) Ur Specific [place] (1.005-1.025) Urine Protein (NEG-TRACE) MG/DL Urine Glucose (UA) (NEG) MG/DL Urine Ketones (NEG) MG/DL Urine Blood (NEG) Urine Nitrite (NEG) Ur Leukocyte Esterase (NEG) Urine RBC (0) /HPF Urine WBC (0-4) /HPF Ur Squamous Epith Cells /LPF Calcium Oxalate Crystal /LPF Amorphous Sediment /LPF Urine Bacteria /LPF Urine Mucus /LPF Urine Opiates Screen (Not Detect) Urine Fentanyl Screen (Not Detect) Ur Barbiturates Screen (Not Detect) Ur Phencyclidine Scrn (Not Detect) Ur Amphetamines Screen (Not Detect) U Benzodiazepines Scrn (Not Detect) Urine Cocaine Screen (Not Detect) U Marijuana (THC) Screen (Not Detect) Ethyl Alcohol < 10 mg/dL COVID-19 (SAMANTHA) Negative (Negative) COVID-19 Clin Com See Note ECG Data Attestation: I personally reviewed and interpreted this ECG as follows: ECG interpretation date: 06/23/21 ECG interpretation time: 22:51 Prior ECG tracings: available for review Interpretation: Vent. rate 78 BPM CA interval 174 ms QRS duration 88 ms QT/QTc 408/465 ms P-R-T axes 61 39 27 Normal sinus rhythm Normal ECG When compared with ECG of 21-SEP-2020 13:59, T wave inversion no longer evident in Anterior leads Discharge Plan Discharge Clinical Impression: Depression Patient Disposition: Admitted As Inpatient Interventions: Admission Worksheet (ED) Last Done: 06/24/21 00:01 Discharge Date/Time: 06/24/21 00:03
[2021-06-23 16:33] VITALS: BMI 23.0
[2021-06-23 16:38] VITALS: BP 125/76; PULSE 74; RESP 18; TEMP 36.6; O2SAT 97
--- NOTE | 2021-06-23 17:24 | PC.NURSE ---
belongings in locker 9
[2021-06-23 18:02] LABS: Appearance Urine HAZY; Color Urine YELLOW; Glucose Urine UA NEG (NEG); Leukocyte Esterase Urine NEG (NEG); Nitrite Urine NEG (NEG); Specific Gravity - Urine >= 1.030 (1.005-1.025); Urine Blood TRACE (NEG); Urine Ketones 15 MG/DL (NEG); Urine Protein TRACE MG/DL (NEG-TRACE)
[2021-06-23 18:16] LABS: WBC Urine 0-2 /HPF (0-4)
[2021-06-23 18:17] LABS: Amphetamine Screen Urine Not Detected (Not Detect); Barbiturates, Urine Not Detected (Not Detect); Benzodiazepines Screen Urine Not Detected (Not Detect); Cannabinoid Screen Urine Not Detected (Not Detect); Cocaine Screen Urine POSITIVE (Not Detect); Fentanyl, urine POSITIVE (Not Detect); Opiate Screen Urine POSITIVE (Not Detect); Phencyclidine Screen Urine Not Detected (Not Detect)
[2021-06-23 18:17] LABS: Amorphous Sediment Urine 1+ /LPF; Calcium Oxalate Crystals Urine 2+ /LPF; Mucus Urine 3+ /LPF; RBC Urine 0-2 /HPF (0); Squamous Epithelial Cell Urine 3+ /LPF
[2021-06-23] MEDS: LORazepam 1 MG TABLET 2 MG PO (18:24)
--- NOTE | 2021-06-23 18:37 | PC.NURSE ---
spoke with LEESA - pt is an inpatient bed search- will send smart sheet when labs have been drawn
[2021-06-23 19:15] LABS: MANUAL DIFF FLAG NO
[2021-06-23 19:18] LABS: Basophils Percent Auto 0.2 % (0-2); Hematocrit 35.5 % (37.0-47.0); Hemoglobin 11.7 g/dl (12.0-16.0); Imm Gran Abs Auto 0.04 X10*3/uL (0.00-0.03); Imm Gran Pct Auto 0.4 % (0.0-0.4); Lymphocytes Absolute Auto 2.5 X10*3/uL (1.2-4.9); Lymphocytes Percent Auto 25.1 % (20-40); Mean Corpuscular Hemoglobin 27.9 pg (27.0-33.0); Mean Corpuscular Volume 84.5 fL (80.0-98.0); Mean Platelet Volume 11.7 fL (9.4-12.3); Monocytes Absolute Auto 0.8 X10*3/uL (0.1-1.2); Monocytes Percent Auto 8.2 % (2-11); Neutrophils Absolute Auto 6.4 x10*3/uL (2.0-8.3); Neutrophils Percent Auto 66.1 % (45-73); Platelet Count 265 X10*3/uL (160-400); Red Cell Distribution Width 15.3 % (11.0-16.0); White Blood Count 9.8 X10*3/uL (4.8-10.8)
[2021-06-23 19:30] LABS: Ethanol < 10 mg/dL
[2021-06-23 19:37] LABS: Alanine Aminotransferase 8 U/L (0-31); Albumin Level 4.2 g/dL (3.5-5.0); Alkaline Phosphatase 90 U/L (39-117); Anion Gap 15 (12-20); Aspartate Amino Transferase 15 U/L (5-31); Bilirubin Total 0.5 mg/dL (0.0-1.0); Blood Urea Nitrogen 17 mg/dL (9-16); Calcium 10.4 mg/dL (8.4-10.2); Carbon Dioxide 23 mmol/L (22-29); Chloride 105 mmol/L (96-108); Creatinine Clr Calc Pharmacy 82.1; Estimated Glomerular Filt Rate > 60; Glucose Random 134 mg/dL (60-115); Potassium 3.3 mmol/L (3.3-5.1); Sodium 140 mmol/L (135-145); Total Protein 7.8 g/dL (6.5-8.0)
[2021-06-23 21:12] LABS: COVID-19 Test Negative (Negative)
[2021-06-24] MEDS: LORazepam 1 MG TABLET PO (01:41)
[2021-06-24] MEDS: QUEtiapine Fumarate 200 MG TABLET PO ×2 (01:41→20:25)
[2021-06-24 02:02] VITALS: BMI 22.6
[2021-06-24 04:00] VITALS: BP 105/68; PULSE 98; RESP 18; TEMP 36.9; O2SAT 97
--- NOTE | 2021-06-24 04:38 | PC.ADMIT ---
Patient is a 51-year-old single white female who was evaluated in the community by [facility] for suicidal ideation and thoughts of robbing a bank and harming others. Patient relapsed two months ago and has since lost her treatment providers and is unable to refill her medications. Patient is seeking detox stating, I was told by N to come here because I won't just get Ativan and Haldol to detox, that do nothing, that I would get Methadone or Suboxone and would not feel any withdrawal symptoms at all. This RN clarified to the patient withdrawal symptoms to some degree are unavoidable and she may have misinterpreted the conversation with N. Patient admited to using approximately 4 bags of heroin this morning before arriving to the hospital. Patient was withdrawn and not more forthcoming; stated she was tired and wanted to go to her room.
[2021-06-24 06:00] VITALS: BP 102/65; PULSE 100; RESP 18; TEMP 37.1; O2SAT 97
--- NOTE | 2021-06-24 09:41 | PC.NURSE ---
This RN offered to administer flu shot but patient refused at this time
--- NOTE | 2021-06-24 09:59 | HO.PSYADMNOT ---
HPI Date of Service: 06/24/21 Chief Complaint: SI, HI, Polysubstance use Sources of Information: patient interviewed, chart reviewed and crisis/core team assessment reviewed HPI Subjective Notes: Short Warning and Conditional Voluntary Narrative: Pt is a 51 yo female with long hx of depression, PTSD and heroin dependence who presents for SI, recent intentional overdose, and HI in face of increased heroin use, currently in withdrawal and off her medications for a week. Pt reports she's been using heroin consistently for at least 15 years with some brief periods of sobriety. Patient reports that until about 2 months ago she was using heroin every other day but it has now become daily about 2 g per day. Patient reports that she has chronic, intermittent suicidal ideation as well as chronic intermittent thoughts about robbing a bank. She reports that over the last week her depression increased and so did her suicidality. She started having thoughts like just do it and attempted to overdose on heroin. She also had thought to shoot herself but decided to tell a friend of hers to get the guns out of her house which he did. Patient also had increased thoughts of robbing a bank; she said she has had this thought on and off for years of robbing a specific bank and has fantasized about plans. Patient said she has never actually attempted to do anything like this but reports that this past week she considered it; regarding shooting people, patient said she has no intention of harming anybody but understands it could be necessary if she were to jeniffer a bank. Patient said that in her depression she called [facility] herself and got herself to the hospital, wanting to avoid harm. She reports that she has been taking her medications as prescribed except stopped Effexor this past week and is feeling the effects of abruptly discontinuing. She does not think that Effexor has helped her very much saying even when she was sober she found herself depressed; she reports having tried most medications which have done very little or nothing to help. Patient says she is regularly prescribed clonazepam 0.5 mg b.i.d. p.r.n. and 1 mg at bedtime in addition to Ambien 10 mg at bedtime and says nothing else helps her sleep or helps her anxiety; information writer reviewed prescription monitoring program and verified this information. Patient denies history of manic type symptoms or episodes. She endorses history of multiple traumas throughout her life and has consistent nightmares, flashbacks, hypervigilance and is easily startled. Patient would like to get on Suboxone but would like to use methadone to help her withdrawal symptoms which are currently mild to moderate, 4/10. She reports that she is not currently suicidal and is not currently planning to jeniffer a bank harm anyone. Past Psychiatric History: Hx X detoxs/suicide attempts, area hospitalizations. OD in Jun needed intubation. 2020: Prov x 2/ [place]. M5 on . [facility] providers X but dropped out recently Medical Evaluation Reviewed: Yes [facility] Medical History (Updated 06/24/21 @ 18:22 by Bhupinder Chavez MD) Asthma Cocaine use disorder, moderate, dependence COPD (chronic obstructive pulmonary disease) Major depression, recurrent MDD (major depressive disorder), recurrent episode, severe Opioid dependence Post traumatic stress disorder PTSD (post-traumatic stress disorder) Family History: X family members have depression and substance abuse Social History: Single, lives in own apt. On SDI. Son14, in November in MVA Don mujica is supportive but conflicted relationship Has 2 daughters and grandchildren Substance History: Long history of opiate abuse starting around 18 years old; off and on cocaine abuse Trauma History: Complex PTSD: nightmares/triggers/intrusive thoughts Diagnostics Vital Signs (24Hr): Vital Signs - 24 hr 06/23/21 16:38 06/24/21 04:00 06/24/21 06:00 Temperature 97.9 F 98.5 F 98.7 F Pulse Rate 74 98 100 Respiratory Rate 18 18 18 Blood Pressure 125/76 105/68 102/65 Pulse Oximetry 97 97 97 BMI result Body Mass Index 22.6 Labs Results: 06/23/21 19:02 06/23/21 19:02 Labs: Laboratory Results - last 48 hr 06/23/21 06/23/21 06/23/21 17:46 17:48 19:02 WBC RBC Hgb Hct MCV MCH MCHC RDW Plt Count MPV Immature Gran % (Auto) Neut % (Auto) Lymph % (Auto) [place] % (Auto) Eos % (Auto) Baso % (Auto) Lymph # (Auto) [place] # (Auto) Eos # (Auto) Baso # (Auto) Abs Immat Gran (auto) Absolute Neuts (auto) Absolute Nucleated RBC Nucleated RBC % (auto) Sodium 140 Potassium 3.3 Chloride 105 Carbon Dioxide 23 Anion Gap 15 BUN 17 H Creatinine 0.67 Estim Creat Clear Calc 82.1 Estimated GFR > 60 Random Glucose 134 H Calcium 10.4 H Total Bilirubin 0.5 AST 15 ALT 8 Alkaline Phosphatase 90 D Total Protein 7.8 Albumin 4.2 Urine Color YELLOW Urine Appearance HAZY Urine pH 6.0 Ur Specific [place] >= 1.030 H Urine Protein TRACE Urine Glucose (UA) NEG Urine Ketones 15 Urine Blood TRACE Urine Nitrite NEG Ur Leukocyte Esterase NEG Urine RBC 0-2 Urine WBC 0-2 Ur Squamous Epith Cells 3+ Calcium Oxalate Crystal 2+ Amorphous Sediment 1+ Urine Bacteria NONE Urine Mucus 3+ Urine Opiates Screen POSITIVE H Urine Fentanyl Screen POSITIVE H Ur Barbiturates Screen Not Detected Ur Phencyclidine Scrn Not Detected Ur Amphetamines Screen Not Detected U Benzodiazepines Scrn Not Detected Urine Cocaine Screen POSITIVE H U Marijuana (THC) Screen Not Detected Ethyl Alcohol COVID-19 (SAMANTHA) COVID-19 Clin Com 06/23/21 06/23/21 06/23/21 19:02 19:02 20:46 WBC 9.8 RBC 4.20 Hgb 11.7 L Hct 35.5 L MCV 84.5 MCH 27.9 MCHC 33.0 RDW 15.3 Plt Count 265 MPV 11.7 Immature Gran % (Auto) 0.4 Neut % (Auto) 66.1 Lymph % (Auto) 25.1 [place] % (Auto) 8.2 Eos % (Auto) 0.0 Baso % (Auto) 0.2 Lymph # (Auto) 2.5 [place] # (Auto) 0.8 Eos # (Auto) 0.0 Baso # (Auto) 0.0 Abs Immat Gran (auto) 0.04 H Absolute Neuts (auto) 6.4 Absolute Nucleated RBC 0.000 Nucleated RBC % (auto) 0.0 Sodium Potassium Chloride Carbon Dioxide Anion Gap BUN Creatinine Estim Creat Clear Calc Estimated GFR Random Glucose Calcium Total Bilirubin AST ALT Alkaline Phosphatase Total Protein Albumin Urine Color Urine Appearance Urine pH Ur Specific [place] Urine Protein Urine Glucose (UA) Urine Ketones Urine Blood Urine Nitrite Ur Leukocyte Esterase Urine RBC Urine WBC Ur Squamous Epith Cells Calcium Oxalate Crystal Amorphous Sediment Urine Bacteria Urine Mucus Urine Opiates Screen Urine Fentanyl Screen Ur Barbiturates Screen Ur Phencyclidine Scrn Ur Amphetamines Screen U Benzodiazepines Scrn Urine Cocaine Screen U Marijuana (THC) Screen Ethyl Alcohol < 10 COVID-19 (SAMANTHA) Negative COVID-19 Clin Com See Note Meds/Allergies Meds Home Medications Acetaminophen (Acetaminophen 325 Mg Tablet) 650 mg PO Q6H PRN PRN Reason: Headache/Pain Mild Scale (1-3) Al Hydroxide/Mg Hydroxide (Magnesium Hydrox/Alum Hydrox 30 Ml Oral.Susp) 30 ml PO Q6H PRN PRN Reason: Heartburn/Nausea Albuterol Sulfate (Albuterol Sulfate 90 Mcg 8 Gm Inhaler) 2 puff INHALE Q4H PRN PRN Reason: Shortness Of Breath Or Wheezing Clonazepam (Clonazepam 0.5 Mg Tablet) 0.5 mg PO BID PRN PRN Reason: anxiety/insomnia Clonazepam (Clonazepam 1 Mg Tablet) 1 mg PO BEDTIME PRN PRN Reason: anxiety/insomnia Clonidine HCl (Clonidine Hcl 0.1 Mg Tablet) 0.1 mg PO Q4H PRN; Protocol PRN Reason: Opiate Withdrawal Hydroxyzine HCl (Hydroxyzine Hcl 25 Mg Tablet) 25 mg PO Q6H PRN PRN Reason: Anxiety Magnesium Hydroxide (Milk Of Magnesia 30 Ml Oral.Susp) 30 ml PO DAILY PRN PRN Reason: Constipation Methadone HCl (Methadone Hcl 20 Mg/2 Ml Oral.Conc) 15 mg PO DAILY ALICIA Quetiapine Fumarate (Quetiapine Fumarate 200 Mg Tablet) 200 mg PO BEDTIME [facility] Last Admin: 06/24/21 01:41 Dose: 200 mg Documented by: Quetiapine Fumarate (Quetiapine Fumarate 25 Mg Tablet) 75 mg PO BID PRN PRN Reason: anxiety Allergies Allergies Allergy/AdvReac Type Severity Reaction Status Date / Time trazodone [TRAZODONE] Allergy Severe SHORTNESS Verified 01/14/21 02:23 OF BREATH, GASPING FOR AIR , SOB aspirin [ASPIRIN] Allergy Unknown STOMACH Verified 01/14/21 02:23 UPSET, Nausea, nausa ciprofloxacin [Cipro] Allergy Unknown Rash Verified 01/14/21 02:23 promethazine [Phenergan] Allergy Unknown Hives Verified 01/14/21 02:23 Sulfa (Sulfonamide Allergy Unknown Unknown Verified 01/14/21 02:23 Antibiotics) Mental Status Exam Mental Status Exam Narrative: Pt is alert and oriented; behavior is cooperative, friendly and calm; patient is not in distress; dressed in casual attire with unkempt hair but adequate hygiene; mood is described as good and affect congruent; eye contact appropriate; Speech is normal rate, volume and prosody and not pressured; no psychomotor agitation/retardation present; thought process is organized and goal directed; Thought content is on tx; otherwise pertinent to relevant topics and without any delusional content, paranoid ideations or grandiosity; denies any SI/HI. There is no evidence of perceptual disturbance. Patients insight and judgment appear intact. Assessment & Plan Assessment & Plan (1) MDD (major depressive disorder), recurrent episode, severe: Status: Acute Code(s): F33.2 - Major depressive disorder, recurrent severe without psychotic features (2) PTSD (post-traumatic stress disorder): Status: Acute Code(s): F43.10 - Post-traumatic stress disorder, unspecified (3) Opioid dependence: Status: Acute Code(s): F11.20 - Opioid dependence, uncomplicated Plan Pt is a 51 yo female with long hx of depression, PTSD and heroin dependence who presents for SI, recent intentional overdose, and HI in face of increased heroin use, currently in withdrawal and off her medications for a week. Pt reports she's been using heroin consistently for at least 15 years with some brief periods of sobriety. Patient reports that until about 2 months ago she was using heroin every other day but it has now become daily about 2 g per day. Patient reports that she has chronic, intermittent suicidal ideation as well as chronic intermittent thoughts about robbing a bank. She reports that over the last week her depression increased and so did her suicidality. -patient reports SI has resolved and she currently has no intention or plans to jeniffer a bank however she says that she was considering this over the past few days -says medications are helping but agrees to restart venlafaxine to avoid discontinuation syndrom while discussing med management -methadone for detox and then transferred to Suboxone Patient's outpatient provider has been prescribing both Ambien 10 mg and clonazepam regularly Plan Patient on CV Q 15 minute checks Venlafaxine ER 150 mg daily for now; will discuss with patient whether not to continue this medication and resume home dose or to have a new medication trial Methadone 20 mg today; 15 mg tomorrow and will continue to taper Transition to Suboxone Patient has been on both Ambien and clonazepam prescriber outpatient provider. Patient is adamant about this being continued and says nothing else helps her sleep. Given her long history of being on this med information writer will continue clonazepam; however will hold Ambien for now since she was just started on methadone and did not want to risk over sedation Will need to verify that the guns were removed from her house Will need to verify that the excess medications have been removed Reason for continued inpatient stay Substantial Risk for: harm to self and rapid decompensation
[2021-06-24 12:00] VITALS: BP 106/65; PULSE 96
[2021-06-24] MEDS: Venlafaxine HCl ER 150 MG CAP.ER.24H PO (12:14)
[2021-06-24] MEDS: clonazePAM 0.5 MG TABLET PO ×2 (12:36→17:40)
--- NOTE | 2021-06-24 13:32 | PC.NURSE ---
This RN called [facility] Rend[facility] [phone] to verify pt's methadone dose. Each time the call went to voicemail. This RN left a message requesting them to call us back as soon as possible.
[2021-06-24] MEDS: methADONE HCl 20 MG/2 ML ORAL.CONC PO (13:39)
[2021-06-24 16:30] VITALS: BP 117/72; PULSE 80; TEMP 35.8
--- NOTE | 2021-06-24 16:54 | PC.NURSE ---
Pt was offered and declined nicotine replacement therapy; pt is aware she can request nicotine replacement therapy at any time.
[2021-06-24] MEDS: clonazePAM 1 MG TABLET PO (20:24)
[2021-06-25 06:00] VITALS: BP 93/52; PULSE 62; RESP 16; TEMP 36.7; O2SAT 95
[2021-06-25] MEDS: clonazePAM 0.5 MG TABLET PO ×2 (07:10→20:36)
[2021-06-25] MEDS: methADONE HCl 20 MG/2 ML ORAL.CONC 15 MG PO (08:51)
[2021-06-25 09:17] VITALS: BP 91/52; PULSE 66
[2021-06-25] MEDS: Venlafaxine HCl ER 150 MG CAP.ER.24H 300 MG PO (12:43)
[2021-06-25] MEDS: methADONE HCl 20 MG/2 ML ORAL.CONC 5 MG PO (12:43)
[2021-06-25] MEDS: Cyclobenzaprine HCl 10 MG TABLET PO (12:43)
[2021-06-25] MEDS: chlorproMAZINE HCl 25 MG TABLET PO ×2 (14:43→20:36)
--- NOTE | 2021-06-25 16:56 | P.PNPSI_ITS ---
Subjective Subjective Date of Service: 06/25/21 Reason For Visit: SI, HI, Polysubstance use Interim History: Patient reports that SI has fully resolved. Regarding thoughts to jeniffer a bank, p chayo laughed and said how strange the mine works and that I do not know what I was thinking. Patient says that she gets destructive thoughts like that when she is depressed. She denies any intention or plans to jeniffer a bank, harm herself or anyone. Patient slept well enough last night without Ambien. After discussing medication in more detail, she feels that venlafaxine did help take away night terrors, which she said were severe, describing that 1 time she woke up with a knife in her hand, screaming. She also attributes clonazepam 1 mg at bedtime with helping them resolve. Thus, patient would like to get back to her home dose of 300 mg. Patient also agrees to augmenting this with mirtazapine which she has been on in the past. She says it makes her very sleepy which can also help with her insomnia and hopefully further make her less inclined to use Ambien. She agrees that given her continued substance abuse, it is very difficult to ascertain the true benefits from medication. Patient reports that she has worse withdrawal symptoms today and would like another 5 mg of methad one. She is still hopeful to get on Suboxone. Patient denies any recent history of sharing needles. Patient shared more about her history of trauma which says started in infancy and has followed her through her life year after year with numerous traumatic incidences. Patient says that she can get very triggered at times and black out angry if triggered enough. Court Orderly discussed guns and excess medication in her apartment. Patient said that her friend who is sober, took the guns out of her house and will not give them back to her. Court Orderly explained the team's concerns and wanting to verify this with her friend. Patient said this will not happen, she does not want to involve her friend and there is no way her friend would ever talk to staff anyway. Patient feels it is unnecessary for staff to verify this with her friend anyway, giving evidence by saying do you know how easy it would be for me to get another gun? I could just walked out the door and in 30 minutes I would have one. Regarding excess supply of Seroquel, patient says that she would like to restart her VNA who will take the excess medications. Court Orderly and patient discussed therapy. She says that therapy was helpful in the past. She was not aware of EMDR or exposure therapy but said she can not imagine this would be helpful. Mental Status Exam Mental Status Exam Narrative: Pt is alert and oriented; behavior is cooperative, friendly and calm; patient is not in distress; dressed in hospital gown and sweatshirt, with combed hair and good hygiene; mood is described as ok and affect congruent; eye contact appropriate; Speech is normal rate, volume and prosody and not pressured; no psychomotor agitation/retardation present; thought process is organized and goal directed; Thought content is on tx; otherwise pertinent to relevant topics and without any delusional content, paranoid ideations or grandiosity; denies any SI/HI. There is no evidence of perceptual disturbance. ?Patients insight and judgment appear intact. Diagnostics Vital Signs (24Hr): Vital Signs - 24 hr 06/25/21 06:00 06/25/21 09:17 Temperature 98.1 F Pulse Rate 62 66 Respiratory Rate 16 Blood Pressure 93/52 L 91/52 L Pulse Oximetry 95 BMI result Body Mass Index 22.6 Labs Results: 06/23/21 19:02 06/23/21 19:02 Labs: Laboratory Results - last 48 hr 06/23/21 06/23/21 06/23/21 17:46 17:48 19:02 WBC RBC Hgb Hct MCV MCH MCHC RDW Plt Count MPV Immature Gran % (Auto) Neut % (Auto) Lymph % (Auto) [place] % (Auto) Eos % (Auto) Baso % (Auto) Lymph # (Auto) [place] # (Auto) Eos # (Auto) Baso # (Auto) Abs Immat Gran (auto) Absolute Neuts (auto) Absolute Nucleated RBC Nucleated RBC % (auto) Sodium 140 Potassium 3.3 Chloride 105 Carbon Dioxide 23 Anion Gap 15 BUN 17 H Creatinine 0.67 Estim Creat Clear Calc 82.1 Estimated GFR > 60 Random Glucose 134 H Calcium 10.4 H Total Bilirubin 0.5 AST 15 ALT 8 Alkaline Phosphatase 90 D Total Protein 7.8 Albumin 4.2 Urine Color YELLOW Urine Appearance HAZY Urine pH 6.0 Ur Specific [place] >= 1.030 H Urine Protein TRACE Urine Glucose (UA) NEG Urine Ketones 15 Urine Blood TRACE Urine Nitrite NEG Ur Leukocyte Esterase NEG Urine RBC 0-2 Urine WBC 0-2 Ur Squamous Epith Cells 3+ Calcium Oxalate Crystal 2+ Amorphous Sediment 1+ Urine Bacteria NONE Urine Mucus 3+ Urine Opiates Screen POSITIVE H Urine Fentanyl Screen POSITIVE H Ur Barbiturates Screen Not Detected Ur Phencyclidine Scrn Not Detected Ur Amphetamines Screen Not Detected U Benzodiazepines Scrn Not Detected Urine Cocaine Screen POSITIVE H U Marijuana (THC) Screen Not Detected Ethyl Alcohol COVID-19 (SAMANTHA) COVID-19 [facility] Com 06/23/21 06/23/21 06/23/21 19:02 19:02 20:46 WBC 9.8 RBC 4.20 Hgb 11.7 L Hct 35.5 L MCV 84.5 MCH 27.9 MCHC 33.0 RDW 15.3 Plt Count 265 MPV 11.7 Immature Gran % (Auto) 0.4 Neut % (Auto) 66.1 Lymph % (Auto) 25.1 [place] % (Auto) 8.2 Eos % (Auto) 0.0 Baso % (Auto) 0.2 Lymph # (Auto) 2.5 [place] # (Auto) 0.8 Eos # (Auto) 0.0 Baso # (Auto) 0.0 Abs Immat Gran (auto) 0.04 H Absolute Neuts (auto) 6.4 Absolute Nucleated RBC 0.000 Nucleated RBC % (auto) 0.0 Sodium Potassium Chloride Carbon Dioxide Anion Gap BUN Creatinine Estim Creat Clear Calc Estimated GFR Random Glucose Calcium Total Bilirubin AST ALT Alkaline Phosphatase Total Protein Albumin Urine Color Urine Appearance Urine pH Ur Specific [place] Urine Protein Urine Glucose (UA) Urine Ketones Urine Blood Urine Nitrite Ur Leukocyte Esterase Urine RBC Urine WBC Ur Squamous Epith Cells Calcium Oxalate Crystal Amorphous Sediment Urine Bacteria Urine Mucus Urine Opiates Screen Urine Fentanyl Screen Ur Barbiturates Screen Ur Phencyclidine Scrn Ur Amphetamines Screen U Benzodiazepines Scrn Urine Cocaine Screen U Marijuana (THC) Screen Ethyl Alcohol < 10 COVID-19 (SAMANTHA) Negative COVID-19 Clin Com See Note Medications Medications Current Medications Acetaminophen (Acetaminophen 325 Mg Tablet) 650 mg PO Q6H PRN PRN Reason: Headache/Pain Mild Scale (1-3) Al Hydroxide/Mg Hydroxide (Magnesium Hydrox/Alum Hydrox 30 Ml Oral.Susp) 30 ml PO Q6H PRN PRN Reason: Heartburn/Nausea Albuterol Sulfate (Albuterol Sulfate 90 Mcg 8 Gm Inhaler) 2 puff INHALE Q4H PRN PRN Reason: Shortness Of Breath Or Wheezing Chlorpromazine HCl (Chlorpromazine Hcl 25 Mg Tablet) 25 mg PO QID PRN PRN Reason: anxiety Last Admin: 06/25/21 14:43 Dose: 25 mg Documented by: Clonazepam (Clonazepam 0.5 Mg Tablet) 0.5 mg PO BID PRN PRN Reason: anxiety/insomnia Last Admin: 06/25/21 07:10 Dose: 0.5 mg Documented by: Clonazepam (Clonazepam 1 Mg Tablet) 1 mg PO BEDTIME PRN PRN Reason: anxiety/insomnia Last Admin: 06/24/21 20:24 Dose: 1 mg Documented by: Clonidine HCl (Clonidine Hcl 0.1 Mg Tablet) 0.1 mg PO Q4H PRN; Protocol PRN Reason: Opiate Withdrawal Cyclobenzaprine HCl (Cyclobenzaprine Hcl 10 Mg Tablet) 10 mg PO TID PRN PRN Reason: muscle cramps Last Admin: 06/25/21 12:43 Dose: 10 mg Documented by: Dicyclomine HCl (Dicyclomine Hcl 10 Mg Capsule) 10 mg PO TIDAC PRN PRN Reason: stomach cramps Hydroxyzine HCl (Hydroxyzine Hcl 25 Mg Tablet) 25 mg PO Q6H PRN PRN Reason: Anxiety Loperamide HCl (Loperamide Hcl 2 Mg Capsule) 2 mg PO Q4H PRN PRN Reason: loose stool Magnesium Hydroxide (Milk Of Magnesia 30 Ml Oral.Susp) 30 ml PO DAILY PRN PRN Reason: Constipation Methadone HCl (Methadone Hcl 20 Mg/2 Ml Oral.Conc) 15 mg PO DAILY ALICIA Mirtazapine (Mirtazapine 7.5 Mg Tablet) 7.5 mg PO BEDTIME ALICIA Quetiapine Fumarate (Quetiapine Fumarate 200 Mg Tablet) 200 mg PO BEDTIME ALICIA Last Admin: 06/24/21 20:25 Dose: 200 mg Documented by: Quetiapine Fumarate (Quetiapine Fumarate 25 Mg Tablet) 75 mg PO BID PRN PRN Reason: anxiety Venlafaxine HCl (Venlafaxine Hcl Er 150 Mg Cap.Er.24h) 300 mg PO DAILY ALICIA Allergies Allergies Allergy/AdvReac Type Severity Reaction Status Date / Time trazodone [TRAZODONE] Allergy Severe SHORTNESS Verified 01/14/21 02:23 OF BREATH, GASPING FOR AIR , SOB aspirin [ASPIRIN] Allergy Unknown STOMACH Verified 01/14/21 02:23 UPSET, Nausea, nausa ciprofloxacin [Cipro] Allergy Unknown Rash Verified 01/14/21 02:23 promethazine [Phenergan] Allergy Unknown Hives Verified 01/14/21 02:23 Sulfa (Sulfonamide Allergy Unknown Unknown Verified 01/14/21 02:23 Antibiotics) Assessment & Plan Assessment & Plan (1) MDD (major depressive disorder), recurrent episode, severe: Status: Acute Code(s): F33.2 - Major depressive disorder, recurrent severe without psychotic features (2) PTSD (post-traumatic stress disorder): Status: Acute Code(s): F43.10 - Post-traumatic stress disorder, unspecified (3) Opioid dependence: Status: Acute Code(s): F11.20 - Opioid dependence, uncomplicated Plan Pt is a 51 yo female with long hx of depression, PTSD and heroin dependence who presents for SI, recent intentional overdose, and HI in face of increased heroin use, currently in withdrawal and off her medications for a week. Pt reports she's been using heroin consistently for at least 15 years with some brief periods of sobriety. Patient reports that until about 2 months ago she was using heroin every other day but it has now become daily about 2 g per day. Patient reports that she has chronic, intermittent suicidal ideation as well as chronic intermittent thoughts about robbing a bank. She reports that over the last week her depression increased and so did her suicidality. -patient reports SI has resolved and she currently has no intention or plans to jeniffer a bank however she says that she was considering this over the past few days -says medications are helping but agrees to restart venlafaxine to avoid discontinuation syndrom while discussing med management -methadone for detox and then transferred to Suboxone Patient's outpatient provider has been prescribing both Ambien 10 mg and clonazepam regularly 06/25 patient's mood is better and denies any SI, HI or thoughts of robbing anything. She would like to get back on full dose of venlafaxine since she thinks it has been at least partially helpful and would like to restart mirtazapine which she has been on in the past. Patient will not give TATYANA or the phone number to verify that the guns removed from her house but feels it is sufficient to say that they are gone and that music writer will just have to trust this is true because even if music writer did talk to her friend and verified, she could always get new ones if she really wanted. Plan Patient on CV Q 15 minute checks INCREASE to Venlafaxine ER 300 mg daily since partially helpful Start mirtazapine 7.5 mg q.h.s.; venlafaxine only partially helpful; the patient has tolerated this medication in the past and helps with insomnia Again Methadone 20 mg today; Methadone 15 mg tomorrow and will continue to taper Transition to Suboxone Patient has been on both Ambien and clonazepam prescriber outpatient provider. Patient is adamant about this being continued and says nothing else helps her sleep. Given her long history of being on this med music writer will continue clonazepam; however will hold Ambien for now since she was just started on methadone and did not want to risk over sedation I spent minutes with the patient and/or on the patient floor today, greater than?50% of which was spent counseling/coordinating care. Reason for contiued inpatient stay Substantial Risk for: rapid decompensation and med/psych decompensation
[2021-06-25] MEDS: Acetaminophen 325 MG TABLET 650 MG PO (18:06)
[2021-06-25] MEDS: clonazePAM 1 MG TABLET PO (18:07)
[2021-06-25 20:10] VITALS: BP 103/55; PULSE 72; TEMP 36.6; O2SAT 99
[2021-06-25] MEDS: QUEtiapine Fumarate 200 MG TABLET PO (21:39)
[2021-06-25] MEDS: Mirtazapine 7.5 MG TABLET PO (21:39)
[2021-06-26 06:00] VITALS: BP 108/62; PULSE 68; RESP 18; TEMP 36.7; O2SAT 98
[2021-06-26 08:00] VITALS: BP 93/55; PULSE 69; RESP 16; TEMP 36.6; O2SAT 97
[2021-06-26] MEDS: Venlafaxine HCl ER 150 MG CAP.ER.24H 300 MG PO (08:10)
[2021-06-26] MEDS: methADONE HCl 20 MG/2 ML ORAL.CONC 15 MG PO (08:11)
[2021-06-26] MEDS: chlorproMAZINE HCl 25 MG TABLET PO (09:12)
[2021-06-26] MEDS: clonazePAM 0.5 MG TABLET PO ×2 (09:12→15:01)
[2021-06-26 10:10] VITALS: BMI 23.3
[2021-06-26] MEDS: Cyclobenzaprine HCl 10 MG TABLET PO ×2 (10:51→18:45)
[2021-06-26] MEDS: Ondansetron ODT 4 MG TAB.RAPDIS TRANSLINGU (11:06)
[2021-06-26 12:00] VITALS: BP 99/61; PULSE 74
[2021-06-26] MEDS: chlorproMAZINE HCl 25 MG TABLET 50 MG PO ×2 (15:01→18:45)
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
[2021-06-26 19:30] VITALS: BP 103/56; PULSE 68
[2021-06-26] MEDS: QUEtiapine Fumarate 200 MG TABLET PO (19:49)
[2021-06-26] MEDS: fluvoxaMINE Maleate 50 MG TABLET PO (19:50)
[2021-06-26] MEDS: Mirtazapine 7.5 MG TABLET PO (19:50)
[2021-06-27 06:00] VITALS: BP 108/62; PULSE 68; TEMP 36.6; O2SAT 99
[2021-06-27] MEDS: methADONE HCl 20 MG/2 ML ORAL.CONC 10 MG PO (08:36)
[2021-06-27] MEDS: Cyclobenzaprine HCl 10 MG TABLET PO (09:45)
[2021-06-27] MEDS: Acetaminophen 325 MG TABLET 650 MG PO ×2 (09:46→16:58)
[2021-06-27 09:55] VITALS: BP 72/44; PULSE 119; RESP 16; TEMP 36.7; O2SAT 97
[2021-06-27 12:19] VITALS: BP 81/46; PULSE 77
[2021-06-27] MEDS: clonazePAM 0.5 MG TABLET PO (13:16)
[2021-06-27] MEDS: chlorproMAZINE HCl 25 MG TABLET 50 MG PO (16:58)
--- NOTE | 2021-06-27 18:15 | HO.PSYCHPN ---
Subjective Subjective Date of Service: 06/27/21 Reason For Visit: SI, HI, Polysubstance use Interim History: pt reports feeling withdrawal symptoms more today than before; she agrees to have another methadone 10mg tomorrow and elongate taper. Mood is a little better overall though still depressed and still frequent bouts of anxiety. Pt denies any SI/HI. BP dropped and pt felt a little dizzy, however, it resolved; automatic typewriter inspector explained most likely due to Fluvoxamine. Pt would like to continue. Slept well last night, again w/out ambien. Mental Status Exam Mental Status Exam Narrative: Pt is alert and oriented; behavior is cooperative and calm; patient is not in distress; dressed in hospital gown and sweatshirt, with combed hair and good hygiene; mood is described as depressed and affect still downcaste; eye contact overall appropriate but tendency to look down; Speech is normal rate, volume and prosody and not pressured; some psychomotor retardation present; thought process is organized and goal directed; Thought content is on tx, no SI but intermittent passive wish; otherwise pertinent to relevant topics and without any delusional content, paranoid ideations or grandiosity; denies any active SI; denies HI. There is no evidence of perceptual disturbance. ?Patients insight and judgment are adequate. Diagnostics Vital Signs (24Hr): Vital Signs - 24 hr 06/26/21 19:30 06/27/21 06:00 06/27/21 09:55 Temperature 97.8 F 98.1 F Pulse Rate 68 68 119 H Respiratory Rate 16 Blood Pressure 103/56 L 108/62 72/44 L Pulse Oximetry 99 97 06/27/21 12:19 Temperature Pulse Rate 77 Respiratory Rate Blood Pressure 81/46 L Pulse Oximetry BMI result Body Mass Index 23.3 Labs Results: 06/23/21 19:02 06/23/21 19:02 Medications Medications Current Medications Acetaminophen (Acetaminophen 325 Mg Tablet) 650 mg PO Q6H PRN PRN Reason: Headache/Pain Mild Scale (1-3) Last Admin: 06/27/21 16:58 Dose: 650 mg Documented by: Al Hydroxide/Mg Hydroxide (Magnesium Hydrox/Alum Hydrox 30 Ml Oral.Susp) 30 ml PO Q6H PRN PRN Reason: Heartburn/Nausea Albuterol Sulfate (Albuterol Sulfate 90 Mcg 8 Gm Inhaler) 2 puff INHALE Q4H PRN PRN Reason: Shortness Of Breath Or Wheezing Chlorpromazine HCl (Chlorpromazine Hcl 25 Mg Tablet) 50 mg PO QID PRN PRN Reason: anxiety Last Admin: 06/27/21 16:58 Dose: 50 mg Documented by: Clonazepam (Clonazepam 0.5 Mg Tablet) 0.5 mg PO BID PRN PRN Reason: anxiety/insomnia Last Admin: 06/27/21 13:16 Dose: 0.5 mg Documented by: Clonazepam (Clonazepam 1 Mg Tablet) 1 mg PO BEDTIME PRN PRN Reason: anxiety/insomnia Last Admin: 06/25/21 18:07 Dose: 1 mg Documented by: Clonidine HCl (Clonidine Hcl 0.1 Mg Tablet) 0.1 mg PO Q4H PRN; Protocol PRN Reason: Opiate Withdrawal Cyclobenzaprine HCl (Cyclobenzaprine Hcl 10 Mg Tablet) 10 mg PO TID PRN PRN Reason: muscle cramps Last Admin: 06/27/21 09:45 Dose: 10 mg Documented by: Dicyclomine HCl (Dicyclomine Hcl 10 Mg Capsule) 10 mg PO TIDAC PRN PRN Reason: stomach cramps Fluvoxamine Maleate (Fluvoxamine Maleate 50 Mg Tablet) 50 mg PO BEDTIME [facility] Last Admin: 06/26/21 19:50 Dose: 50 mg Documented by: Hydroxyzine HCl (Hydroxyzine Hcl 25 Mg Tablet) 25 mg PO Q6H PRN PRN Reason: Anxiety Loperamide HCl (Loperamide Hcl 2 Mg Capsule) 2 mg PO Q4H PRN PRN Reason: loose stool Magnesium Hydroxide (Milk Of Magnesia 30 Ml Oral.Susp) 30 ml PO DAILY PRN PRN Reason: Constipation Methadone HCl (Methadone Hcl 20 Mg/2 Ml Oral.Conc) 10 mg PO DAILY [facility] Last Admin: 06/27/21 08:36 Dose: 10 mg Documented by: Mirtazapine (Mirtazapine 7.5 Mg Tablet) 7.5 mg PO BEDTIME [facility]ICIA Last Admin: 06/26/21 19:50 Dose: 7.5 mg Documented by: Ondansetron HCl (Ondansetron Odt 4 Mg Tab.Rapdis) 4 mg TRANSLINGU Q6H PRN PRN Reason: Nausea Last Admin: 06/26/21 11:06 Dose: 4 mg Documented by: Quetiapine Fumarate (Quetiapine Fumarate 200 Mg Tablet) 200 mg PO BEDTIME [facility]ICIA Last Admin: 06/26/21 19:49 Dose: 200 mg Documented by: Allergies Allergies Allergy/AdvReac Type Severity Reaction Status Date / Time trazodone [TRAZODONE] Allergy Severe SHORTNESS Verified 01/14/21 02:23 OF BREATH, GASPING FOR AIR , SOB aspirin [ASPIRIN] Allergy Unknown STOMACH Verified 01/14/21 02:23 UPSET, Nausea, nausa ciprofloxacin [Cipro] Allergy Unknown Rash Verified 01/14/21 02:23 promethazine [Phenergan] Allergy Unknown Hives Verified 01/14/21 02:23 Sulfa (Sulfonamide Allergy Unknown Unknown Verified 01/14/21 02:23 Antibiotics) Assessment & Plan Assessment & Plan (1) MDD (major depressive disorder), recurrent episode, severe: Status: Acute Code(s): F33.2 - Major depressive disorder, recurrent severe without psychotic features (2) PTSD (post-traumatic stress disorder): Status: Acute Code(s): F43.10 - Post-traumatic stress disorder, unspecified (3) Opioid dependence: Status: Acute Code(s): F11.20 - Opioid dependence, uncomplicated Plan Pt is a 51 yo female with long hx of depression, PTSD and heroin dependence who presents for SI, recent intentional overdose, and HI in face of increased heroin use, currently in withdrawal and off her medications for a week. Pt reports she's been using heroin consistently for at least 15 years with some brief periods of sobriety. Patient reports that until about 2 months ago she was using heroin every other day but it has now become daily about 2 g per day. Patient reports that she has chronic, intermittent suicidal ideation as well as chronic intermittent thoughts about robbing a bank. She reports that over the last week her depression increased and so did her suicidality. -patient reports SI has resolved and she currently has no intention or plans to jeniffer a bank however she says that she was considering this over the past few days -says medications are helping but agrees to restart venlafaxine to avoid discontinuation syndrom while discussing med management -methadone for detox and then transferred to Suboxone Patient's outpatient provider has been prescribing both Ambien 10 mg and clonazepam regularly 06/25 patient's mood is better and denies any SI, HI or thoughts of robbing anything. She would like to get back on full dose of venlafaxine since she thinks it has been at least partially helpful and would like to restart mirtazapine which she has been on in the past. Patient will not give TATYANA or the phone number to verify that the guns removed from her house but feels it is sufficient to say that they are gone and that automatic typewriter inspector will just have to trust this is true because even if automatic typewriter inspector did talk to her friend and verified, she could always get new ones if she really wanted. 06/26 Patient clarified that her better mood is only better in comparison to what it has been which is severely depressed. She reports continued depression with intermittent thoughts throughout the day, wishing she were . Patient reflected on the medications and concluded that Effexor is not really helpful and would like to switch; she agrees to fluvoxamine. Currently, patient is not appropriate for discharge. She remains very depressed And with passive wish we leaves her vulnerable for resurgence of active SI; patient still needs to be discontinued on venlafaxine and started and titrated on fluvoxamine; also her liver enzymes will need to be checked once on fluvoxamine since they were elevated during past trials of Sertraline. Patient is also still tapering down off methadone and will need to be switched to Suboxone. Given her continued depression and need for continued medication management, patient is to remain on the unit for continued stabilization and safety. 06/27 pt mood a little better; still intermittent passive thoughts of wishing to be , but less frequent, less intense. Plan Patient on CV Q 15 minute checks DC Venlafaxine Conitnue Fluvoxamine 50 mg q.h.s. for depression, PTSD; will increase but slowly given hypotenision Will get LFT's Since she reports they were elevated on Zoloft Continue mirtazapine 7.5 mg q.h.s.; the patient has tolerated this medication in the past and helps with insomnia Methadone 10 mg wednesday methadone 5mg wednesday and wednesday, the dc and Transition to Suboxone Patient has been on both Ambien and clonazepam prescriber outpatient provider. Patient is adamant about this being continued and says nothing else helps her sleep. Given her long history of being on this med automatic typewriter inspector will continue clonazepam; however will hold Ambien for now since she was just started on methadone and did not want to risk over sedation med trials: Zoloft: Helpful however increased liver enzymes so discontinued Lexapro 10 mg Lamictal: Sub therapeutic dose Abilify 5 mg Mirtazapine 15 mg Oxcarbamazepine 600 Wellbutrin: Worsened anxiety Patient reports history of Depakote and lithium which she said were unhelpful I spent minutes with the patient and/or on the patient floor today, greater than?50% of which was spent counseling/coordinating care. Reason for contiued inpatient stay Substantial Risk for: rapid decompensation
[2021-06-27 19:07] VITALS: BP 90/55; PULSE 77
[2021-06-27] MEDS: Mirtazapine 7.5 MG TABLET PO (20:30)
[2021-06-27] MEDS: QUEtiapine Fumarate 200 MG TABLET PO (20:30)
[2021-06-27] MEDS: fluvoxaMINE Maleate 50 MG TABLET PO (20:31)
[2021-06-27] MEDS: clonazePAM 1 MG TABLET PO (20:33)
[2021-06-28] VITALS: BP 92/58; PULSE 72; RESP 16; O2SAT 98
[2021-06-28 06:00] VITALS: BP 94/56; PULSE 68; RESP 16; TEMP 36.7; O2SAT 98
[2021-06-28 07:55] LABS: Alanine Aminotransferase 7 U/L (0-31); Albumin Level 3.4 g/dL (3.5-5.0); Alkaline Phosphatase 66 U/L (39-117); Aspartate Amino Transferase 14 U/L (5-31); Bilirubin Direct < 0.2 mg/dL (0.0-0.5); Bilirubin Total 0.2 mg/dL (0.0-1.0); Total Protein 6.6 g/dL (6.5-8.0)
[2021-06-28] MEDS: methADONE HCl 20 MG/2 ML ORAL.CONC 10 MG PO (08:43)
[2021-06-28 08:46] VITALS: BP 90/59; PULSE 86; RESP 18; TEMP 36.7; O2SAT 96
[2021-06-28] MEDS: clonazePAM 0.5 MG TABLET PO ×2 (08:58→18:37)
[2021-06-28] MEDS: Cyclobenzaprine HCl 10 MG TABLET PO (08:58)
[2021-06-28 12:00] VITALS: BP 101/63; PULSE 75
[2021-06-28] MEDS: chlorproMAZINE HCl 25 MG TABLET 50 MG PO (14:02)
[2021-06-28] MEDS: Acetaminophen 325 MG TABLET 650 MG PO (14:02)
[2021-06-28 16:00] VITALS: BP 110/57; PULSE 87
--- NOTE | 2021-06-28 16:44 | P.PNPSI_ITS ---
Subjective Subjective Date of Service: 06/28/21 Reason For Visit: SI, HI, Polysubstance use Subjective Notes: Conditional Voluntary Interim History: patient reports that today has been difficult. Anxiety and depression have been high. Some irritability. Sleep has been okay though. Feels positive that Luvox has been started. Feels the chlorpromazine has been helpful regarding anxiety. Slept better last night. Was asking around Effexor dosing which was 300 mg pre-admission and had been off same for approximately 3-4 days prior to admission. Denied current SI. Hopeful around treatment. Denies cravings Medication Compliance: Yes Side effects from medications: No Attending Groups: Yes Review of Systems Acute medical concerns: No Review of Systems Review of Systems unremarkable Mental Status Exam Mental Status Exam Narrative: pleasant. Engaged. Organized. Reports feeling irritable and anxious. Is some anxiety in affect but no agitation. No SI. No HI. Insight judgment fair Diagnostics Vital Signs (24Hr): Vital Signs - 24 hr 06/27/21 19:07 06/28/21 00:00 06/28/21 06:00 Temperature 98.0 F Pulse Rate 77 72 68 Respiratory Rate 16 16 Blood Pressure 90/55 L 92/58 L 94/56 L Pulse Oximetry 98 98 06/28/21 08:46 06/28/21 12:00 06/28/21 16:00 Temperature 98.1 F Pulse Rate 86 75 87 Respiratory Rate 18 Blood Pressure 90/59 L 101/63 110/57 L Pulse Oximetry 96 BMI result Body Mass Index 23.3 Labs Results: 06/23/21 19:02 06/23/21 19:02 Labs: Laboratory Results - last 48 hr 06/28/21 07:11 Total Bilirubin 0.2 Direct Bilirubin < 0.2 AST 14 ALT 7 Alkaline Phosphatase 66 D Total Protein 6.6 Albumin 3.4 L Medications Medications Current Medications Acetaminophen (Acetaminophen 325 Mg Tablet) 650 mg PO Q6H PRN PRN Reason: Headache/Pain Mild Scale (1-3) Last Admin: 06/28/21 14:02 Dose: 650 mg Documented by: Al Hydroxide/Mg Hydroxide (Magnesium Hydrox/Alum Hydrox 30 Ml Oral.Susp) 30 ml PO Q6H PRN PRN Reason: Heartburn/Nausea Albuterol Sulfate (Albuterol Sulfate 90 Mcg 8 Gm Inhaler) 2 puff INHALE Q4H PRN PRN Reason: Shortness Of Breath Or Wheezing Chlorpromazine HCl (Chlorpromazine Hcl 25 Mg Tablet) 50 mg PO QID PRN PRN Reason: anxiety Last Admin: 06/28/21 14:02 Dose: 50 mg Documented by: Clonazepam (Clonazepam 0.5 Mg Tablet) 0.5 mg PO BID PRN PRN Reason: anxiety/insomnia Last Admin: 06/28/21 08:58 Dose: 0.5 mg Documented by: Clonazepam (Clonazepam 1 Mg Tablet) 1 mg PO BEDTIME PRN PRN Reason: anxiety/insomnia Last Admin: 06/27/21 20:33 Dose: 1 mg Documented by: Clonidine HCl (Clonidine Hcl 0.1 Mg Tablet) 0.1 mg PO Q4H PRN; Protocol PRN Reason: Opiate Withdrawal Cyclobenzaprine HCl (Cyclobenzaprine Hcl 10 Mg Tablet) 10 mg PO TID PRN PRN Reason: muscle cramps Last Admin: 06/28/21 08:58 Dose: 10 mg Documented by: Dicyclomine HCl (Dicyclomine Hcl 10 Mg Capsule) 10 mg PO TIDAC PRN PRN Reason: stomach cramps Fluvoxamine Maleate (Fluvoxamine Maleate 50 Mg Tablet) 50 mg PO BEDTIME ALICIA Last Admin: 06/27/21 20:31 Dose: 50 mg Documented by: Hydroxyzine HCl (Hydroxyzine Hcl 25 Mg Tablet) 25 mg PO Q6H PRN PRN Reason: Anxiety Loperamide HCl (Loperamide Hcl 2 Mg Capsule) 2 mg PO Q4H PRN PRN Reason: loose stool Magnesium Hydroxide (Milk Of Magnesia 30 Ml Oral.Susp) 30 ml PO DAILY PRN PRN Reason: Constipation Methadone HCl (Methadone Hcl 20 Mg/2 Ml Oral.Conc) 10 mg PO DAILY ALICIA Stop: 06/28/21 23:59 Last Admin: 06/28/21 08:43 Dose: 10 mg Documented by: Methadone HCl (Methadone Hcl 5 Mg Tablet) 5 mg PO DAILY ALICIA Stop: 06/30/21 23:50 Mirtazapine (Mirtazapine 7.5 Mg Tablet) 7.5 mg PO BEDTIME ALICIA Last Admin: 06/27/21 20:30 Dose: 7.5 mg Documented by: Ondansetron HCl (Ondansetron Odt 4 Mg Tab.Rapdis) 4 mg TRANSLINGU Q6H PRN PRN Reason: Nausea Last Admin: 06/26/21 11:06 Dose: 4 mg Documented by: Quetiapine Fumarate (Quetiapine Fumarate 200 Mg Tablet) 200 mg PO BEDTIME ALICIA Last Admin: 06/27/21 20:30 Dose: 200 mg Documented by: Allergies Allergies Allergy/AdvReac Type Severity Reaction Status Date / Time trazodone [TRAZODONE] Allergy Severe SHORTNESS Verified 01/14/21 02:23 OF BREATH, GASPING FOR AIR , SOB aspirin [ASPIRIN] Allergy Unknown STOMACH Verified 01/14/21 02:23 UPSET, Nausea, nausa ciprofloxacin [Cipro] Allergy Unknown Rash Verified 01/14/21 02:23 promethazine [Phenergan] Allergy Unknown Hives Verified 01/14/21 02:23 Sulfa (Sulfonamide Allergy Unknown Unknown Verified 01/14/21 02:23 Antibiotics) Assessment & Plan Assessment & Plan (1) MDD (major depressive disorder), recurrent episode, severe: Status: Acute Code(s): F33.2 - Major depressive disorder, recurrent severe without psychotic features (2) PTSD (post-traumatic stress disorder): Status: Acute Code(s): F43.10 - Post-traumatic stress disorder, unspecified (3) Opioid dependence: Status: Acute Code(s): F11.20 - Opioid dependence, uncomplicated Plan Pt is a 51 yo female with long hx of depression, PTSD and heroin dependence who presents for SI, recent intentional overdose, and HI in face of increased heroin use, currently in withdrawal and off her medications for a week. Pt reports she's been using heroin consistently for at least 15 years with some brief periods of sobriety. Patient reports that until about 2 months ago she was using heroin every other day but it has now become daily about 2 g per day. Patient reports that she has chronic, intermittent suicidal ideation as well as chronic intermittent thoughts about robbing a bank. She reports that over the last week her depression increased and so did her suicidality. -patient reports SI has resolved and she currently has no intention or plans to jeniffer a bank however she says that she was considering this over the past few days -says medications are helping but agrees to restart venlafaxine to avoid discontinuation syndrom while discussing med management -methadone for detox and then transferred to Suboxone Patient's outpatient provider has been prescribing both Ambien 10 mg and clonazepam regularly 06/25 patient's mood is better and denies any SI, HI or thoughts of robbing anything. She would like to get back on full dose of venlafaxine since she thinks it has been at least partially helpful and would like to restart mirtazapine which she has been on in the past. Patient will not give TATYANA or the phone number to verify that the guns removed from her house but feels it is sufficient to say that they are gone and that physician underwriter will just have to trust this is true because even if physician underwriter did talk to her friend and verified, she could always get new ones if she really wanted. 06/26 Patient clarified that her better mood is only better in comparison to what it has been which is severely depressed. She reports continued depression with intermittent thoughts throughout the day, wishing she were . Patient reflected on the medications and concluded that Effexor is not really helpful and would like to switch; she agrees to fluvoxamine. Currently, patient is not appropriate for discharge. She remains very depressed And with passive wish we leaves her vulnerable for resurgence of active SI; patient still needs to be discontinued on venlafaxine and started and titrated on fluvoxamine; also her liver enzymes will need to be checked once on fluvoxamine since they were elevated during past trials of Sertraline. Patient is also still tapering down off methadone and will need to be switched to Suboxone. Given her continued depression and need for continued medication management, patient is to remain on the unit for continued stabilization and safety. 06/27 pt mood a little better; still intermittent passive thoughts of wishing to be , but less frequent, less intense. Plan Patient on CV Q 15 minute checks DC Venlafaxine Conitnue Fluvoxamine 50 mg q.h.s. for depression, PTSD; will increase but slowly given hypotenision Will get LFT's Since she reports they were elevated on Zoloft Continue mirtazapine 7.5 mg q.h.s.; the patient has tolerated this medication in the past and helps with insomnia Methadone 10 mg wednesday methadone 5mg wednesday and wednesday, the dc and Transition to Suboxone Patient has been on both Ambien and clonazepam prescriber outpatient provider. Patient is adamant about this being continued and says nothing else helps her sleep. Given her long history of being on this med physician underwriter will continue clonazepam; however will hold Ambien for now since she was just started on methadone and did not want to risk over sedation med trials: Zoloft: Helpful however increased liver enzymes so discontinued Lexapro 10 mg Lamictal: Sub therapeutic dose Abilify 5 mg Mirtazapine 15 mg Oxcarbamazepine 600 Wellbutrin: Worsened anxiety Patient reports history of Depakote and lithium which she said were unhelpful 06/28/2021: No changes to primary team treatment plan. Will continue to observe being off Effexor on a daily basis. Otherwise no changes. I spent minutes with the patient and/or on the patient floor today, greater than?50% of which was spent counseling/coordinating care. Reason for contiued inpatient stay Substantial Risk for: inability to function
[2021-06-28] MEDS: QUEtiapine Fumarate 200 MG TABLET PO (19:49)
[2021-06-28] MEDS: fluvoxaMINE Maleate 50 MG TABLET PO (19:49)
[2021-06-28] MEDS: clonazePAM 1 MG TABLET PO (19:49)
[2021-06-28] MEDS: Mirtazapine 7.5 MG TABLET PO (19:49)
[2021-06-29 05:08] VITALS: BP 106/60; PULSE 78; RESP 18; TEMP 36.6; O2SAT 98
[2021-06-29 08:00] VITALS: BP 101/63; PULSE 75
[2021-06-29] MEDS: methADONE HCl 20 MG/2 ML ORAL.CONC 5 MG PO (08:27)
[2021-06-29] MEDS: Cyclobenzaprine HCl 10 MG TABLET PO ×2 (08:43→16:25)
[2021-06-29] MEDS: clonazePAM 0.5 MG TABLET PO ×2 (08:43→16:26)
[2021-06-29] MEDS: hydrOXYzine HCL 25 MG TABLET PO (11:28)
--- NOTE | 2021-06-29 11:59 | P.PNPSI_ITS ---
Subjective Subjective Date of Service: 06/29/21 Reason For Visit: SI, HI, Polysubstance use Subjective Notes: Conditional Voluntary Medical Problems Affecting Mental Status: No Interim History: Patient reports that today has been better than yesterday, but still feels anxious. Mood slightly less irritable. Has been out of room more and trying to attend groups. Sleep was broken last night and we did discuss scheduling Thorazine. Reports Thorazine has been helpful for anxiety symptoms. We also discussed ongoing withdrawal and sometimes difficult to separate when drawl symptoms and mood symptoms. Methadone is helping with withdrawal symptoms. Otherwise no concerns regarding medications. Denied current SI. Hopeful around treatment. Denies cravings Medication Compliance: Yes Side effects from medications: No Attending Groups: Intermittent Review of Systems Acute medical concerns: No Review of Systems Review of Systems unremarkable Mental Status Exam Mental Status Exam Narrative: Out of room more today. Self-care is better today. Engaged. Organized. Reports feeling anxious, but less irritable today. Has some anxiety in affect but no agitation. No SI. No HI. Insight judgment fair Diagnostics Vital Signs (24Hr): Vital Signs - 24 hr 06/28/21 12:00 06/28/21 16:00 06/29/21 05:08 Temperature 97.8 F Pulse Rate 75 87 78 Respiratory Rate 18 Blood Pressure 101/63 110/57 L 106/60 Pulse Oximetry 98 06/29/21 08:00 Temperature Pulse Rate 75 Respiratory Rate Blood Pressure 101/63 Pulse Oximetry BMI result Body Mass Index 23.3 Labs Results: 06/23/21 19:02 06/23/21 19:02 Labs: Laboratory Results - last 48 hr 06/28/21 07:11 Total Bilirubin 0.2 Direct Bilirubin < 0.2 AST 14 ALT 7 Alkaline Phosphatase 66 D Total Protein 6.6 Albumin 3.4 L Medications Medications Current Medications Acetaminophen (Acetaminophen 325 Mg Tablet) 650 mg PO Q6H PRN PRN Reason: Headache/Pain Mild Scale (1-3) Last Admin: 06/28/21 14:02 Dose: 650 mg Documented by: Al Hydroxide/Mg Hydroxide (Magnesium Hydrox/Alum Hydrox 30 Ml Oral.Susp) 30 ml PO Q6H PRN PRN Reason: Heartburn/Nausea Albuterol Sulfate (Albuterol Sulfate 90 Mcg 8 Gm Inhaler) 2 puff INHALE Q4H PRN PRN Reason: Shortness Of Breath Or Wheezing Chlorpromazine HCl (Chlorpromazine Hcl 25 Mg Tablet) 50 mg PO QID PRN PRN Reason: anxiety Last Admin: 06/28/21 14:02 Dose: 50 mg Documented by: Clonazepam (Clonazepam 0.5 Mg Tablet) 0.5 mg PO BID PRN PRN Reason: anxiety/insomnia Last Admin: 06/29/21 08:43 Dose: 0.5 mg Documented by: Clonazepam (Clonazepam 1 Mg Tablet) 1 mg PO BEDTIME PRN PRN Reason: anxiety/insomnia Last Admin: 06/28/21 19:49 Dose: 1 mg Documented by: Clonidine HCl (Clonidine Hcl 0.1 Mg Tablet) 0.1 mg PO Q4H PRN; Protocol PRN Reason: Opiate Withdrawal Cyclobenzaprine HCl (Cyclobenzaprine Hcl 10 Mg Tablet) 10 mg PO TID PRN PRN Reason: muscle cramps Last Admin: 06/29/21 08:43 Dose: 10 mg Documented by: Dicyclomine HCl (Dicyclomine Hcl 10 Mg Capsule) 10 mg PO TIDAC PRN PRN Reason: stomach cramps Fluvoxamine Maleate (Fluvoxamine Maleate 50 Mg Tablet) 50 mg PO BEDTIME ALICIA Last Admin: 06/28/21 19:49 Dose: 50 mg Documented by: Hydroxyzine HCl (Hydroxyzine Hcl 25 Mg Tablet) 25 mg PO Q6H PRN PRN Reason: Anxiety Last Admin: 06/29/21 11:28 Dose: 25 mg Documented by: Loperamide HCl (Loperamide Hcl 2 Mg Capsule) 2 mg PO Q4H PRN PRN Reason: loose stool Magnesium Hydroxide (Milk Of Magnesia 30 Ml Oral.Susp) 30 ml PO DAILY PRN PRN Reason: Constipation Methadone HCl (Methadone Hcl 20 Mg/2 Ml Oral.Conc) 5 mg PO DAILY ALICIA Last Admin: 06/29/21 08:27 Dose: 5 mg Documented by: Mirtazapine (Mirtazapine 7.5 Mg Tablet) 7.5 mg PO BEDTIME ALICIA Last Admin: 06/28/21 19:49 Dose: 7.5 mg Documented by: Ondansetron HCl (Ondansetron Odt 4 Mg Tab.Rapdis) 4 mg TRANSLINGU Q6H PRN PRN Reason: Nausea Last Admin: 06/26/21 11:06 Dose: 4 mg Documented by: Quetiapine Fumarate (Quetiapine Fumarate 200 Mg Tablet) 200 mg PO BEDTIME ALICIA Last Admin: 06/28/21 19:49 Dose: 200 mg Documented by: Allergies Allergies Allergy/AdvReac Type Severity Reaction Status Date / Time trazodone [TRAZODONE] Allergy Severe SHORTNESS Verified 01/14/21 02:23 OF BREATH, GASPING FOR AIR , SOB aspirin [ASPIRIN] Allergy Unknown STOMACH Verified 01/14/21 02:23 UPSET, Nausea, nausa ciprofloxacin [Cipro] Allergy Unknown Rash Verified 01/14/21 02:23 promethazine [Phenergan] Allergy Unknown Hives Verified 01/14/21 02:23 Sulfa (Sulfonamide Allergy Unknown Unknown Verified 01/14/21 02:23 Antibiotics) Assessment & Plan Assessment & Plan (1) MDD (major depressive disorder), recurrent episode, severe: Status: Acute Code(s): F33.2 - Major depressive disorder, recurrent severe without psychotic features (2) PTSD (post-traumatic stress disorder): Status: Acute Code(s): F43.10 - Post-traumatic stress disorder, unspecified (3) Opioid dependence: Status: Acute Code(s): F11.20 - Opioid dependence, uncomplicated Plan Pt is a 51 yo female with long hx of depression, PTSD and heroin dependence who presents for SI, recent intentional overdose, and HI in face of increased heroin use, currently in withdrawal and off her medications for a week. Pt reports she's been using heroin consistently for at least 15 years with some brief periods of sobriety. Patient reports that until about 2 months ago she was using heroin every other day but it has now become daily about 2 g per day. Patient reports that she has chronic, intermittent suicidal ideation as well as chronic intermittent thoughts about robbing a bank. She reports that over the last week her depression increased and so did her suicidality. -patient reports SI has resolved and she currently has no intention or plans to jeniffer a bank however she says that she was considering this over the past few days -says medications are helping but agrees to restart venlafaxine to avoid discontinuation syndrom while discussing med management -methadone for detox and then transferred to Suboxone Patient's outpatient provider has been prescribing both Ambien 10 mg and clonazepam regularly 06/25 patient's mood is better and denies any SI, HI or thoughts of robbing anything. She would like to get back on full dose of venlafaxine since she thinks it has been at least partially helpful and would like to restart mirtazapine which she has been on in the past. Patient will not give TATYANA or the phone number to verify that the guns removed from her house but feels it is sufficient to say that they are gone and that typewriter ribbon winder will just have to trust this is true because even if typewriter ribbon winder did talk to her friend and verified, she could always get new ones if she really wanted. 06/26 Patient clarified that her better mood is only better in comparison to what it has been which is severely depressed. She reports continued depression with intermittent thoughts throughout the day, wishing she were . Patient reflected on the medications and concluded that Effexor is not really helpful and would like to switch; she agrees to fluvoxamine. Currently, patient is not appropriate for discharge. She remains very depressed And with passive wish we leaves her vulnerable for resurgence of active SI; patient still needs to be discontinued on venlafaxine and started and titrated on fluvoxamine; also her liver enzymes will need to be checked once on fluvoxamine since they were elevated during past trials of Sertraline. Patient is also still tapering down off methadone and will need to be switched to Suboxone. Given her continued depression and need for continued medication management, patient is to remain on the unit for continued stabilization and safety. 06/27 pt mood a little better; still intermittent passive thoughts of wishing to be , but less frequent, less intense. Plan Patient on CV Q 15 minute checks DC Venlafaxine Conitnue Fluvoxamine 50 mg q.h.s. for depression, PTSD; will increase but slowly given hypotenision Will get LFT's Since she reports they were elevated on Zoloft Continue mirtazapine 7.5 mg q.h.s.; the patient has tolerated this medication in the past and helps with insomnia Methadone 10 mg wednesday methadone 5mg wednesday and wednesday, the dc and Transition to Suboxone Patient has been on both Ambien and clonazepam prescriber outpatient provider. Patient is adamant about this being continued and says nothing else helps her sleep. Given her long history of being on this med typewriter ribbon winder will continue c lonazepam; however will hold Ambien for now since she was just started on methadone and did not want to risk over sedation med trials: Zoloft: Helpful however increased liver enzymes so discontinued Lexapro 10 mg Lamictal: Sub therapeutic dose Abilify 5 mg Mirtazapine 15 mg Oxcarbamazepine 600 Wellbutrin: Worsened anxiety Patient reports history of Depakote and lithium which she said were unhelpful 06/28/2021: No changes to primary team treatment plan. Will continue to observe being off Effexor on a daily basis. Otherwise no changes. 06/29: Schedule Thorazine 50 mg at bedtime I spent minutes with the patient and/or on the patient floor today, greater than?50% of which was spent counseling/coordinating care. Reason for contiued inpatient stay Substantial Risk for: inability to function and rapid decompensation
[2021-06-29] MEDS: chlorproMAZINE HCl 25 MG TABLET 50 MG PO ×2 (14:25→20:18)
[2021-06-29] MEDS: Mineral Oil/Petrolatum,White 106 GM Tube 1 APPL TOPICAL (14:26)
[2021-06-29 16:21] VITALS: BP 125/71; PULSE 91
[2021-06-29] MEDS: QUEtiapine Fumarate 200 MG TABLET PO (20:18)
[2021-06-29] MEDS: clonazePAM 1 MG TABLET PO (20:18)
[2021-06-29] MEDS: fluvoxaMINE Maleate 50 MG TABLET PO (20:18)
[2021-06-29] MEDS: Mirtazapine 7.5 MG TABLET PO (20:18)
[2021-06-30 06:00] VITALS: BP 112/68; PULSE 82; RESP 18; TEMP 36.6; O2SAT 98
[2021-06-30] MEDS: methADONE HCl 20 MG/2 ML ORAL.CONC 5 MG PO (09:21)
[2021-06-30] MEDS: Mineral Oil/Petrolatum,White 106 GM Tube 1 APPL TOPICAL (09:23)
--- NOTE | 2021-06-30 10:46 | HO.PSYCHPN ---
Subjective Subjective Date of Service: 06/30/21 Reason For Visit: SI, HI, Polysubstance use Medical Problems Affecting Mental Status: No Interim History: Patient was seen and discussed in rounds. Records were reviewed. She has been doing a little better but continues to feel depressed and anxious. She states that she is having a lot of sleep interruptions and does not know why she was not continued on her Ambien which she will discuss with Dr. Chavez tomorrow. Current regimen reviewed. She has some questions about Thorazine which we discussed. No changes were made today Medication Compliance: Yes Side effects from medications: No Review of Systems Review of Systems Yes all other systems are reviewed and are negative Mental Status Exam Mental Status Exam Narrative: In today's visit she is alert, oriented and pleasant. Normal speech. The lie contact. Affect is subdued. Moderate anxiety present. No auditory or visual hallucinations. No SI. Cognitively is intact. Judgment is intact Diagnostics Vital Signs (24Hr): Vital Signs - 24 hr 06/29/21 16:21 06/30/21 06:00 Temperature 97.9 F Pulse Rate 91 82 Respiratory Rate 18 Blood Pressure 125/71 112/68 Pulse Oximetry 98 BMI result Body Mass Index 23.3 Labs Results: 06/23/21 19:02 06/23/21 19:02 Medications Medications Current Medications Acetaminophen (Acetaminophen 325 Mg Tablet) 650 mg PO Q6H PRN PRN Reason: Headache/Pain Mild Scale (1-3) Last Admin: 06/28/21 14:02 Dose: 650 mg Documented by: Al Hydroxide/Mg Hydroxide (Magnesium Hydrox/Alum Hydrox 30 Ml Oral.Susp) 30 ml PO Q6H PRN PRN Reason: Heartburn/Nausea Albuterol Sulfate (Albuterol Sulfate 90 Mcg 8 Gm Inhaler) 2 puff INHALE Q4H PRN PRN Reason: Shortness Of Breath Or Wheezing Chlorpromazine HCl (Chlorpromazine Hcl 25 Mg Tablet) 50 mg PO QID PRN PRN Reason: anxiety Last Admin: 06/29/21 14:25 Dose: 50 mg Documented by: Chlorpromazine HCl (Chlorpromazine Hcl 25 Mg Tablet) 50 mg PO BEDTIME ALICIA Last Admin: 06/29/21 20:18 Dose: 50 mg Documented by: Clonazepam (Clonazepam 1 Mg Tablet) 1 mg PO BEDTIME PRN PRN Reason: Insomnia Last Admin: 06/29/21 20:18 Dose: 1 mg Documented by: Clonazepam (Clonazepam 0.5 Mg Tablet) 0.5 mg PO BID PRN PRN Reason: anxiety Clonidine HCl (Clonidine Hcl 0.1 Mg Tablet) 0.1 mg PO Q4H PRN; Protocol PRN Reason: Opiate Withdrawal Cyclobenzaprine HCl (Cyclobenzaprine Hcl 10 Mg Tablet) 10 mg PO TID PRN PRN Reason: muscle cramps Last Admin: 06/29/21 16:25 Dose: 10 mg Documented by: Dicyclomine HCl (Dicyclomine Hcl 10 Mg Capsule) 10 mg PO TIDAC PRN PRN Reason: stomach cramps Fluvoxamine Maleate (Fluvoxamine Maleate 50 Mg Tablet) 50 mg PO BEDTIME ALICIA Last Admin: 06/29/21 20:18 Dose: 50 mg Documented by: Hydroxyzine HCl (Hydroxyzine Hcl 25 Mg Tablet) 25 mg PO Q6H PRN PRN Reason: Anxiety Last Admin: 06/29/21 11:28 Dose: 25 mg Documented by: Loperamide HCl (Loperamide Hcl 2 Mg Capsule) 2 mg PO Q4H PRN PRN Reason: loose stool Magnesium Hydroxide (Milk Of Magnesia 30 Ml Oral.Susp) 30 ml PO DAILY PRN PRN Reason: Constipation Methadone HCl (Methadone Hcl 20 Mg/2 Ml Oral.Conc) 5 mg PO DAILY ALICIA Last Admin: 06/30/21 09:21 Dose: 5 mg Documented by: Mirtazapine (Mirtazapine 7.5 Mg Tablet) 7.5 mg PO BEDTIME ALICIA Last Admin: 06/29/21 20:18 Dose: 7.5 mg Documented by: Multi-Ingred Cream/Lotion/Oil/Oint (Mineral Oil/Petrolatum,White 106 Gm Tube) 1 appl TOPICAL TID ALICIA; Protocol Last Admin: 06/30/21 09:23 Dose: 1 appl Documented by: Ondansetron HCl (Ondansetron Odt 4 Mg Tab.Rapdis) 4 mg TRANSLINGU Q6H PRN PRN Reason: Nausea Last Admin: 06/26/21 11:06 Dose: 4 mg Documented by: Quetiapine Fumarate (Quetiapine Fumarate 200 Mg Tablet) 200 mg PO BEDTIME ALICIA Last Admin: 06/29/21 20:18 Dose: 200 mg Documented by: Allergies Allergies Allergy/AdvReac Type Severity Reaction Status Date / Time trazodone [TRAZODONE] Allergy Severe SHORTNESS Verified 01/14/21 02:23 OF BREATH, GASPING FOR AIR , SOB aspirin [ASPIRIN] Allergy Unknown STOMACH Verified 01/14/21 02:23 UPSET, Nausea, nausa ciprofloxacin [Cipro] Allergy Unknown Rash Verified 01/14/21 02:23 promethazine [Phenergan] Allergy Unknown Hives Verified 01/14/21 02:23 Sulfa (Sulfonamide Allergy Unknown Unknown Verified 01/14/21 02:23 Antibiotics) Assessment & Plan Assessment & Plan (1) MDD (major depressive disorder), recurrent episode, severe: Status: Acute Code(s): F33.2 - Major depressive disorder, recurrent severe without psychotic features (2) PTSD (post-traumatic stress disorder): Status: Acute Code(s): F43.10 - Post-traumatic stress disorder, unspecified (3) Opioid dependence: Status: Acute Code(s): F11.20 - Opioid dependence, uncomplicated Plan Pt is a 51 yo female with long hx of depression, PTSD and heroin dependence who presents for SI, recent intentional overdose, and HI in face of increased heroin use, currently in withdrawal and off her medications for a week. Pt reports she's been using heroin consistently for at least 15 years with some brief periods of sobriety. Patient reports that until about 2 months ago she was using heroin every other day but it has now become daily about 2 g per day. Patient reports that she has chronic, intermittent suicidal ideation as well as chronic intermittent thoughts about robbing a bank. She reports that over the last week her depression increased and so did her suicidality. -patient reports SI has resolved and she currently has no intention or plans to jeniffer a bank however she says that she was considering this over the past few days -says medications are helping but agrees to restart venlafaxine to avoid discontinuation syndrom while discussing med management -methadone for detox and then transferred to Suboxone Patient's outpatient provider has been prescribing both Ambien 10 mg and clonazepam regularly 06/25 patient's mood is better and denies any SI, HI or thoughts of robbing anything. She would like to get back on full dose of venlafaxine since she thinks it has been at least partially helpful and would like to restart mirtazapine which she has been on in the past. Patient will not give TATYANA or the phone number to verify that the guns removed from her house but feels it is sufficient to say that they are gone and that commercial loan underwriter will just have to trust this is true because even if commercial loan underwriter did talk to her friend and verified, she could always get new ones if she really wanted. 06/26 Patient clarified that her better mood is only better in comparison to what it has been which is severely depressed. She reports continued depression with intermittent thoughts throughout the day, wishing she were . Patient reflected on the medications and concluded that Effexor is not really helpful and would like to switch; she agrees to fluvoxamine. Currently, patient is not appropriate for discharge. She remains very depressed And with passive wish we leaves her vulnerable for resurgence of active SI; patient still needs to be discontinued on venlafaxine and started and titrated on fluvoxamine; also her liver enzymes will need to be checked once on fluvoxamine since they were elevated during past trials of Sertraline. Patient is also still tapering down off methadone and will need to be switched to Suboxone. Given her continued depression and need for continued medication management, patient is to remain on the unit for continued stabilization and safety. 06/27 pt mood a little better; still intermittent passive thoughts of wishing to be , but less frequent, less intense. Plan Patient on CV Q 15 minute checks DC Venlafaxine Conitnue Fluvoxamine 50 mg q.h.s. for depression, PTSD; will increase but slowly given hypotenision Will get LFT's Since she reports they were elevated on Zoloft Continue mirtazapine 7.5 mg q.h.s.; the patient has tolerated this medication in the past and helps with insomnia Methadone 10 mg wednesday methadone 5mg wednesday and wednesday, the dc and Transition to Suboxone Patient has been on both Ambien and clonazepam prescriber outpatient provider. Patient is adamant about this being continued and says nothing else helps her sleep. Given her long history of being on this med commercial loan underwriter will continue clonazepam; however will hold Ambien for now since she was just started on methadone and did not want to risk over sedation med trials: Zoloft: Helpful however increased liver enzymes so discontinued Lexapro 10 mg Lamictal: Sub therapeutic dose Abilify 5 mg Mirtazapine 15 mg Oxcarbamazepine 600 Wellbutrin: Worsened anxiety Patient reports history of Depakote and lithium which she said were unhelpful 06/28/2021: No changes to primary team treatment plan. Will continue to observe being off Effexor on a daily basis. Otherwise no changes. 06/29: Schedule Thorazine 50 mg at bedtime 06/30/2021: Continue current regimen. I did increase her Thorazine to 100 mg I spent minutes with the patient and/or on the patient floor today, greater than?50% of which was spent counseling/coordinating care. Patient educated on: medication risk/benefits Reason for contiued inpatient stay Substantial Risk for: other
[2021-06-30] MEDS: clonazePAM 0.5 MG TABLET PO ×2 (11:04→15:13)
[2021-06-30] MEDS: Cyclobenzaprine HCl 10 MG TABLET PO ×2 (11:04→15:13)
[2021-06-30] MEDS: chlorproMAZINE HCl 25 MG TABLET 50 MG PO (13:25)
[2021-06-30 18:01] VITALS: BP 120/67; PULSE 80
[2021-06-30] MEDS: fluvoxaMINE Maleate 50 MG TABLET PO (21:02)
[2021-06-30] MEDS: QUEtiapine Fumarate 200 MG TABLET PO (21:02)
[2021-06-30] MEDS: chlorproMAZINE HCl 100 MG TABLET PO (21:02)
[2021-06-30] MEDS: clonazePAM 1 MG TABLET PO (21:02)
[2021-06-30] MEDS: Mirtazapine 7.5 MG TABLET PO (21:02)
[2021-07-01 06:00] VITALS: BP 84/49; PULSE 78; RESP 16; TEMP 36.9; O2SAT 97
[2021-07-01] MEDS: Mineral Oil/Petrolatum,White 106 GM Tube 1 APPL TOPICAL (08:35)
[2021-07-01] MEDS: methADONE HCl 20 MG/2 ML ORAL.CONC 5 MG PO (08:35)
[2021-07-01] MEDS: Cyclobenzaprine HCl 10 MG TABLET PO ×2 (08:43→18:55)
[2021-07-01] MEDS: clonazePAM 0.5 MG TABLET PO ×2 (08:44→20:31)
[2021-07-01] MEDS: Buprenorphine/Naloxone 8/2 mg FILM 1 FILM SUBLINGUAL (15:01)
[2021-07-01] MEDS: Buprenorphine/Naloxone 4/1 mg FILM 1 FILM SUBLINGUAL (16:08)
[2021-07-01 17:00] VITALS: BP 122/85; PULSE 83; TEMP 36.3; O2SAT 96
--- NOTE | 2021-07-01 17:33 | P.PNPSI_ITS ---
Subjective Subjective Date of Service: 07/01/21 Reason For Visit: SI, HI, Polysubstance use Interim History: Patient reports that her mood is significantly better and that anxiety is down. Patient feels that the medications are indeed helping. She feels withdrawal is mostly over and is ready to get on Suboxone. Patient also notices that her ability to interact without getting triggered has increased and she denies any SI and does not have passive wish. Patient reports she is overall sleeping well enough even without Ambien. Pulmonology Physician discussed the risks of Ambien and patient wondered if perhaps the few instances of para insomnia activity she has had was due to Ambien. She said maybe it is time she gets off of it and would like to see if she can continue sleeping without it. Patient asked also if Seroquel could be made into a p.r.n. to see if she does not need this me dication either since Thorazine has been working well. Regarding Suboxone patient agrees to get on Suboxone now and quality analyst/technical writer discussed the procedure and how to take this medication. She asked if it was possible for some to be available as a p.r.n. for pain to which quality analyst/technical writer agreed that this is an option. Mental Status Exam Mental Status Exam Narrative: Pt is alert and oriented; behavior is cooperative and calm; patient is not in distress; dressed in casual, appropriate cloths, well groomed and good hygiene; mood is described as better and affect congruent, more calm; eye contact adequate; Speech is normal rate, volume and prosody and not pressured; no psychomotor retardation present; thought process is organized and goal directed; Thought content is on tx; otherwise pertinent to relevant topics and without any delusional content, paranoid ideations or grandiosity; denies any SI or any de nies HI. There is no evidence of perceptual disturbance. ?Patients insight and judgment are adequate and fair. Diagnostics Vital Signs (24Hr): Vital Signs - 24 hr 06/30/21 18:01 07/01/21 06:00 Temperature 98.4 F Pulse Rate 80 78 Respiratory Rate 16 Blood Pressure 120/67 84/49 L Pulse Oximetry 97 BMI result Body Mass Index 23.3 Labs Results: 06/23/21 19:02 06/23/21 19:02 Medications Medications Current Medications Acetaminophen (Acetaminophen 325 Mg Tablet) 650 mg PO Q6H PRN PRN Reason: Headache/Pain Mild Scale (1-3) Last Admin: 06/28/21 14:02 Dose: 650 mg Documented by: Al Hydroxide/Mg Hydroxide (Magnesium Hydrox/Alum Hydrox 30 Ml Oral.Susp) 30 ml PO Q6H PRN PRN Reason: Heartburn/Nausea Albuterol Sulfate (Albuterol Sulfate 90 Mcg 8 Gm Inhaler) 2 puff INHALE Q4H PRN PRN Reason: Shortness Of Breath Or Wheezing Buprenorphine/Naloxone (Buprenorphine/Naloxone 4/1 Mg Film) 1 film SUBLINGUAL ONCE PRN PRN Reason: titration Last Admin: 07/01/21 16:08 Dose: 1 film Documented by: Chlorpromazine HCl (Chlorpromazine Hcl 25 Mg Tablet) 50 mg PO QID PRN PRN Reason: anxiety Last Admin: 06/30/21 13:25 Dose: 50 mg Documented by: Chlorpromazine HCl (Chlorpromazine Hcl 100 Mg Tablet) 100 mg PO BEDTIME ALICIA Last Admin: 06/30/21 21:02 Dose: 100 mg Documented by: Clonazepam (Clonazepam 1 Mg Tablet) 1 mg PO BEDTIME PRN PRN Reason: Insomnia Last Admin: 06/30/21 21:02 Dose: 1 mg Documented by: Clonazepam (Clonazepam 0.5 Mg Tablet) 0.5 mg PO BID PRN PRN Reason: anxiety Last Admin: 07/01/21 08:44 Dose: 0.5 mg Documented by: Clonidine HCl (Clonidine Hcl 0.1 Mg Tablet) 0.1 mg PO Q4H PRN; Protocol PRN Reason: Opiate Withdrawal Cyclobenzaprine HCl (Cyclobenzaprine Hcl 10 Mg Tablet) 10 mg PO TID PRN PRN Reason: muscle cramps Last Admin: 07/01/21 08:43 Dose: 10 mg Documented by: Fluvoxamine Maleate (Fluvoxamine Maleate 50 Mg Tablet) 50 mg PO BEDTIME ALICIA Last Admin: 06/30/21 21:02 Dose: 50 mg Documented by: Hydroxyzine HCl (Hydroxyzine Hcl 25 Mg Tablet) 25 mg PO Q6H PRN PRN Reason: Anxiety Last Admin: 06/29/21 11:28 Dose: 25 mg Documented by: Magnesium Hydroxide (Milk Of Magnesia 30 Ml Oral.Susp) 30 ml PO DAILY PRN PRN Reason: Constipation Mirtazapine (Mirtazapine 7.5 Mg Tablet) 7.5 mg PO BEDTIME ALICIA Last Admin: 06/30/21 21:02 Dose: 7.5 mg Documented by: Multi-Ingred Cream/Lotion/Oil/Oint (Mineral Oil/Petrolatum,White 106 Gm Tube) 1 appl TOPICAL TID ALICIA; Protocol Last Admin: 07/01/21 13:32 Dose: Not Given Documented by: Ondansetron HCl (Ondansetron Odt 4 Mg Tab.Rapdis) 4 mg TRANSLINGU Q6H PRN PRN Reason: Nausea Last Admin: 06/26/21 11:06 Dose: 4 mg Documented by: Quetiapine Fumarate (Quetiapine Fumarate 100 Mg Tablet) 100 mg PO BEDTIME PRN PRN Reason: insomnia Allergies Allergies Allergy/AdvReac Type Severity Reaction Status Date / Time trazodone [TRAZODONE] Allergy Severe SHORTNESS Verified 01/14/21 02:23 OF BREATH, GASPING FOR AIR , SOB aspirin [ASPIRIN] Allergy Unknown STOMACH Verified 01/14/21 02:23 UPSET, Nausea, nausa ciprofloxacin [Cipro] Allergy Unknown Rash Verified 01/14/21 02:23 promethazine [Phenergan] Allergy Unknown Hives Verified 01/14/21 02:23 Sulfa (Sulfonamide Allergy Unknown Unknown Verified 01/14/21 02:23 Antibiotics) Assessment & Plan Assessment & Plan (1) MDD (major depressive disorder), recurrent episode, severe: Status: Acute Code(s): F33.2 - Major depressive disorder, recurrent severe without psychotic features (2) PTSD (post-traumatic stress disorder): Status: Acute Code(s): F43.10 - Post-traumatic stress disorder, unspecified (3) Opioid dependence: Status: Acute Code(s): F11.20 - Opioid dependence, uncomplicated Plan Pt is a 51 yo female with long hx of depression, PTSD and heroin dependence who presents for SI, recent intentional overdose, and HI in face of increased heroin use, currently in withdrawal and off her medications for a week. Pt reports she 's been using heroin consistently for at least 15 years with some brief periods of sobriety. Patient reports that until about 2 months ago she was using heroin every other day but it has now become daily about 2 g per day. Patient reports that she has chronic, intermittent suicidal ideation as well as chronic intermittent thoughts about robbing a bank. She reports that over the last week her depression increased and so did her suicidality. -patient reports SI has resolved and she currently has no intention or plans to jeniffer a bank however she says that she was considering this over the past few days -says medications are helping but agrees to restart venlafaxine to avoid discontinuation syndrom while discussing med management -methadone for detox and then transferred to Suboxone Patient's outpatient provider has been prescribing both Ambien 10 mg and clonazepam regularly 06/25 patient's mood is better and denies any SI, HI or thoughts of robbing anything. She would like to get back on full dose of venlafaxine since she thinks it has been at least partially helpful and would like to restart mirtazapine which she has been on in the past. Patient will not give TATYANA or the phone number to verify that the guns removed from her house but feels it is sufficient to say that they are gone and that quality analyst/technical writer will just have to trust this is true because even if quality analyst/technical writer did talk to her friend and verified, she could always get new ones if she really wanted. 06/26 Patient clarified that her better mood is only better in comparison to what it has been which is severely depressed. She reports continued depression with intermittent thoughts throughout the day, wishing she were . Patient reflected on the medications and concluded that Effexor is not really helpful and would like to switch; she agrees to fluvoxamine. Currently, patient is not appropriate for discharge. She remains very depressed And with passive wish we leaves her vulnerable for resurgence of active SI; patient still needs to be discontinued on venlafaxine and started and titrated on fluvoxamine; also her liver enzymes will need to be checked once on fluvoxamine since they were elevated during past trials of Sertraline. Patient is also still tapering down off methadone and will need to be switched to Suboxone. Given her continued depression and need for continued medication management, patient is to remain on the unit for continued stabilization and safety. 06/27 pt mood a little better; still intermittent passive thoughts of wishing to be , but less frequent, less intense. 07/01 patient's mood significantly improved, anxiety improved, patient is sleeping and progressing well; methadone discontinued and patient being transition to Suboxone. No SI, no HI Plan Patient on CV Q 15 minute checks DC Methadone START Suboxone tirtration to 12/3mg -Conitnue Fluvoxamine 50 mg q.h.s. for depression, PTSD; will increase but slowly given hypotenision; LFT's wnl (lfts reportedly elevated on Zoloft) -Continue mirtazapine 7.5 mg q.h.s.; the patient has tolerated this medication in the past and helps with insomnia -continue Thorazine for sleep and as a p.r.n. -make Seroquel p.r.n. for continued insomnia -patient is sleeping without Ambien: Patient has been on both Ambien and clonazepam prescriber outpatient provider. Patient is adamant about this being continued and says nothing else helps her sleep. Given her long history of being on this med quality analyst/technical writer will -continue clonazepam; however will hold Ambien for now since she was just started on methadone and did not want to risk over sedation DC Venlafaxine med trials: Zoloft: Helpful however increased liver enzymes so discontinued Lexapro 10 mg Lamictal: Sub therapeutic dose Abilify 5 mg Mirtazapine 15 mg Oxcarbamazepine 600 Wellbutrin: Worsened anxiety Patient reports history of Depakote and lithium which she said were unhelpful 06/28/2021: No changes to primary team treatment plan. Will continue to observe being off Effexor on a daily basis. Otherwise no changes. 06/29: Schedule Thorazine 50 mg at bedtime 06/30/2021: Continue current regimen. I did increase her Thorazine to 100 mg I spent minutes with the patient and/or on the patient floor today, greater than?50% of which was spent counseling/coordinating care. Reason for contiued inpatient stay Substantial Risk for: stable for discharge
[2021-07-01] MEDS: clonazePAM 1 MG TABLET PO (18:56)
[2021-07-01] MEDS: fluvoxaMINE Maleate 50 MG TABLET PO (20:20)
[2021-07-01] MEDS: Mirtazapine 7.5 MG TABLET PO (20:20)
[2021-07-01] MEDS: chlorproMAZINE HCl 100 MG TABLET PO (20:20)
[2021-07-01] MEDS: QUEtiapine Fumarate 100 MG TABLET PO (20:32)
[2021-07-01] MEDS: Buprenorphine/Naloxone 2/0.5mg FILM 1 FILM SUBLINGUAL (21:02)
[2021-07-02] MEDS: Mineral Oil/Petrolatum,White 106 GM Tube 1 APPL TOPICAL ×2 (08:42→21:45)
[2021-07-02] MEDS: Buprenorphine/Naloxone 12/3 mg FILM 1 FILM SUBLINGUAL (08:42)
[2021-07-02] MEDS: clonazePAM 0.5 MG TABLET PO ×2 (09:03→16:24)
[2021-07-02] MEDS: Cyclobenzaprine HCl 10 MG TABLET PO ×2 (09:03→16:24)
[2021-07-02 09:33] VITALS: BP 91/55; PULSE 107; RESP 18; TEMP 36.6; O2SAT 98
[2021-07-02] MEDS: chlorproMAZINE HCl 25 MG TABLET 50 MG PO ×2 (12:12→18:53)
--- NOTE | 2021-07-02 12:48 | HO.PSYCHPN ---
Subjective Subjective Date of Service: 07/02/21 Reason For Visit: SI, HI, Polysubstance use Interim History: pt reports she actually feels happier today and she says today is best she's felt in a long time. Pt says usually she leaves hospitals too soon, but she reports feeling ready and a little excited about going home. Pt is tolerating suboxone; data analyst report writer discussed and pt agrees to increase to 16/4mg daily all at once; data analyst report writer provided further education on this med, risks/side-effects. Regarding insomnia, pt says she is able to fall asleep w/out a problem but keeps waking up every 2 hours or so for various reasons, sometimes, anxious, sometimes naturally...upon further discussion pt says she thinks it's likely hx of trauma and that her body has gotten used to being hypervigilent about her surroundings. She agrees with data analyst report writer that Ambien in not the best for her and that she'll try to remain off it, however, she says she says it does help her stay asleep. Pt understands however that as she continues to address ptsd/trauma hx, her frequent waking up will hopefully decrease. Given pt's mutliple med changes/titrations over admission, agreed to leave Fluvoxamine at current dose and let outpt provider f/u. Pt denies any SI or HI and no passive wish. Optimistic and wants to restart therapy. Mental Status Exam Mental Status Exam Narrative: Pt is alert and oriented; behavior is cooperative and calm; patient is not in distress; dressed in casual, appropriate cloths, well groomed and good hygiene; mood is described as happier and affect congruent, more calm; eye contact adequate; Speech is normal rate, volume and prosody and not pressured; no psychomotor retardation present; thought process is organized and goal directed; Thought content is on tx; otherwise pertinent to relevant topics and without any delusional content, paranoid ideations or grandiosity; denies any SI or any denies HI. There is no evidence of perceptual disturbance. ?Patients insight and judgment are adequate and fair. Diagnostics Vital Signs (24Hr): Vital Signs - 24 hr 07/01/21 17:00 07/02/21 09:33 Temperature 97.4 F 97.9 F Pulse Rate 83 107 H Respiratory Rate 18 Blood Pressure 122/85 91/55 L Pulse Oximetry 96 98 BMI result Body Mass Index 23.3 Labs Results: 06/23/21 19:02 06/23/21 19:02 Medications Medications Current Medications Acetaminophen (Acetaminophen 325 Mg Tablet) 650 mg PO Q6H PRN PRN Reason: Headache/Pain Mild Scale (1-3) Last Admin: 06/28/21 14:02 Dose: 650 mg Documented by: Al Hydroxide/Mg Hydroxide (Magnesium Hydrox/Alum Hydrox 30 Ml Oral.Susp) 30 ml PO Q6H PRN PRN Reason: Heartburn/Nausea Albuterol Sulfate (Albuterol Sulfate 90 Mcg 8 Gm Inhaler) 2 puff INHALE Q4H PRN PRN Reason: Shortness Of Breath Or Wheezing Buprenorphine/Naloxone (Buprenorphine/Naloxone 8/2 Mg Film) 2 film SUBLINGUAL DAILY ALICIA Buprenorphine/Naloxone (Buprenorphine/Naloxone 2/0.5mg Film) 1 film SUBLINGUAL TID PRN PRN Reason: more severe pain Chlorpromazine HCl (Chlorpromazine Hcl 25 Mg Tablet) 50 mg PO QID PRN PRN Reason: anxiety Last Admin: 07/02/21 12:12 Dose: 50 mg Documented by: Chlorpromazine HCl (Chlorpromazine Hcl 100 Mg Tablet) 100 mg PO BEDTIME ALICIA Last Admin: 07/01/21 20:20 Dose: 100 mg Documented by: Clonazepam (Clonazepam 1 Mg Tablet) 1 mg PO BEDTIME PRN PRN Reason: Insomnia Last Admin: 07/01/21 18:56 Dose: 1 mg Documented by: Clonazepam (Clonazepam 0.5 Mg Tablet) 0.5 mg PO BID PRN PRN Reason: anxiety Last Admin: 07/02/21 09:03 Dose: 0.5 mg Documented by: Clonidine HCl (Clonidine Hcl 0.1 Mg Tablet) 0.1 mg PO Q4H PRN; Protocol PRN Reason: Opiate Withdrawal Cyclobenzaprine HCl (Cyclobenzaprine Hcl 10 Mg Tablet) 10 mg PO TID PRN PRN Reason: muscle cramps Last Admin: 07/02/21 09:03 Dose: 10 mg Documented by: Fluvoxamine Maleate (Fluvoxamine Maleate 50 Mg Tablet) 50 mg PO BEDTIME ALICIA Last Admin: 07/01/21 20:20 Dose: 50 mg Documented by: Magnesium Hydroxide (Milk Of Magnesia 30 Ml Oral.Susp) 30 ml PO DAILY PRN PRN Reason: Constipation Mirtazapine (Mirtazapine 7.5 Mg Tablet) 7.5 mg PO BEDTIME ALICIA Last Admin: 07/01/21 20:20 Dose: 7.5 mg Documented by: Multi-Ingred Cream/Lotion/Oil/Oint (Mineral Oil/Petrolatum,White 106 Gm Tube) 1 appl TOPICAL TID ALICIA; Protocol Last Admin: 07/02/21 08:42 Dose: 1 appl Documented by: Quetiapine Fumarate (Quetiapine Fumarate 100 Mg Tablet) 100 mg PO BEDTIME PRN PRN Reason: insomnia Last Admin: 07/01/21 20:32 Dose: 100 mg Documented by: Allergies Allergies Allergy/AdvReac Type Severity Reaction Status Date / Time trazodone [TRAZODONE] Allergy Severe SHORTNESS Verified 01/14/21 02:23 OF BREATH, GASPING FOR AIR , SOB aspirin [ASPIRIN] Allergy Unknown STOMACH Verified 01/14/21 02:23 UPSET, Nausea, nausa ciprofloxacin [Cipro] Allergy Unknown Rash Verified 01/14/21 02:23 promethazine [Phenergan] Allergy Unknown Hives Verified 01/14/21 02:23 Sulfa (Sulfonamide Allergy Unknown Unknown Verified 01/14/21 02:23 Antibiotics) Assessment & Plan Assessment & Plan (1) MDD (major depressive disorder), recurrent episode, severe: Status: Acute Code(s): F33.2 - Major depressive disorder, recurrent severe without psychotic features (2) PTSD (post-traumatic stress disorder): Status: Acute Code(s): F43.10 - Post-traumatic stress disorder, unspecified (3) Opioid dependence: Status: Acute Code(s): F11.20 - Opioid dependence, uncomplicated Plan Pt is a 51 yo female with long hx of depression, PTSD and heroin dependence who presents for SI, recent intentional overdose, and HI in face of increased heroin use, currently in withdrawal and off her medications for a week. Pt reports she's been using heroin consistently for at least 15 years with some brief periods of sobriety. Patient reports that until about 2 months ago she was using heroin every other day but it has now become daily about 2 g per day. Patient reports that she has chronic, intermittent suicidal ideation as well as chronic intermittent thoughts about robbing a bank. She reports that over the last week her depression increased and so did her suicidality. -patient reports SI has resolved and she currently has no intention or plans to jeniffer a bank however she says that she was considering this over the past few days -says medications are helping but agrees to restart venlafaxine to avoid discontinuation syndrom while discussing med management -methadone for detox and then transferred to Suboxone Patient's outpatient provider has been prescribing both Ambien 10 mg and clonazepam regularly 06/25 patient's mood is better and denies any SI, HI or thoughts of robbing anything. She would like to get back on full dose of venlafaxine since she thinks it has been at least partially helpful and would like to restart mirtazapine which she has been on in the past. Patient will not give TATYANA or the phone number to verify that the guns removed from her house but feels it is sufficient to say that they are gone and that data analyst report writer will just have to trust this is true because even if data analyst report writer did talk to her friend and verified, she could always get new ones if she really wanted. 06/26 Patient clarified that her better mood is only better in comparison to what it has been which is severely depressed. She reports continued depression with intermittent thoughts throughout the day, wishing she were . Patient reflected on the medications and concluded that Effexor is not really helpful and would like to switch; she agrees to fluvoxamine. Currently, patient is not appropriate for discharge. She remains very depressed And with passive wish we leaves her vulnerable for resurgence of active SI; patient still needs to be discontinued on venlafaxine and started and titrated on fluvoxamine; also her liver enzymes will need to be checked once on fluvoxamine since they were elevated during past trials of Sertraline. Patient is also still tapering down off methadone and will need to be switched to Suboxone. Given her continued depression and need for continued medication management, patient is to remain on the unit for continued stabilization and safety. 06/27 pt mood a little better; still intermittent passive thoughts of wishing to be , but less frequent, less intense. 07/01 patient's mood significantly improved, anxiety improved, patient is sleeping and progressing well; methadone discontinued and patient being transition to Suboxone. No SI, no HI 07/02 Patient's mood continues to improve and she remained stable, without any SI or HI. Medications seem to be helping and patient denies side effects. She has some insomnia, able fall sleep but with frequent waking up during the night which she mostly attributes to history of trauma and PTSD symptoms. Patient feels stable and is ready to discuss discharge. Plan Patient on CV Q 15 minute checks DC Methadone titrated to Suboxone tirtration to 16/4mg daily subxone 2/0.5mg TID for mod-severe pain; acetaminophen/nsaids minimal help; data analyst report writer's strong opinion that if adding some suboxone as a prn helps her stay sober, the benefits far outweigh the risks -Conitnue Fluvoxamine 50 mg q.h.s. for depression, PTSD; will increase but slowly given hypotenision; LFT's wnl (lfts reportedly elevated on Zoloft) -Continue mirtazapine 7.5 mg q.h.s.; the patient has tolerated this medication in the past and helps with insomnia -continue Thorazine for sleep and as a p.r.n. -make Seroquel p.r.n. for continued insomnia -patient is sleeping without Ambien: Patient has been on both Ambien and clonazepam prescriber outpatient provider. Patient is adamant about this being continued and says nothing else helps her sleep. Given her long history of being on this med data analyst report writer will -continue clonazepam; however will hold Ambien for now since she was just started on methadone and did not want to risk over sedation DC Venlafaxine med trials: Zoloft: Helpful however increased liver enzymes so discontinued Lexapro 10 mg Lamictal: Sub therapeutic dose Abilify 5 mg Mirtazapine 15 mg Oxcarbamazepine 600 Wellbutrin: Worsened anxiety Patient reports history of Depakote and lithium which she said were unhelpful 06/28/2021: No changes to primary team treatment plan. Will continue to observe being off Effexor on a daily basis. Otherwise no changes. 06/29: Schedule Thorazine 50 mg at bedtime 06/30/2021: Continue current regimen. I did increase her Thorazine to 100 mg I spent minutes with the patient and/or on the patient floor today, greater than?50% of which was spent counseling/coordinating care. Reason for contiued inpatient stay Substantial Risk for: stable for discharge
[2021-07-02] MEDS: Buprenorphine/Naloxone 4/1 mg FILM 1 FILM SUBLINGUAL (13:20)
[2021-07-02 16:28] VITALS: BP 122/80; PULSE 95; TEMP 36.7; O2SAT 100
[2021-07-02] MEDS: Buprenorphine/Naloxone 2/0.5mg FILM 1 FILM SUBLINGUAL (19:17)
[2021-07-02] MEDS: fluvoxaMINE Maleate 50 MG TABLET PO (21:42)
[2021-07-02] MEDS: Mirtazapine 7.5 MG TABLET PO (21:42)
[2021-07-02] MEDS: chlorproMAZINE HCl 100 MG TABLET PO (21:42)
[2021-07-02] MEDS: QUEtiapine Fumarate 100 MG TABLET PO (21:45)
[2021-07-02] MEDS: clonazePAM 1 MG TABLET PO (21:47)
[2021-07-03 06:00] VITALS: BP 110/68; PULSE 88; RESP 18; TEMP 36.4; O2SAT 98
[2021-07-03] MEDS: Cyclobenzaprine HCl 10 MG TABLET PO ×2 (08:18→13:58)
[2021-07-03] MEDS: clonazePAM 0.5 MG TABLET PO ×2 (08:18→13:58)
[2021-07-03] MEDS: Buprenorphine/Naloxone 8/2 mg FILM 2 FILM SUBLINGUAL (08:18)
[2021-07-03 08:21] VITALS: BMI 25.2
[2021-07-03] MEDS: chlorproMAZINE HCl 25 MG TABLET 50 MG PO (10:47)
[2021-07-03] MEDS: Naloxone HCl Nasal TAKE HOME 4 MG SPRAY NOSTRILALT (14:57)
--- NOTE | 2021-07-03 15:18 | PM.PSYDC ---
DS: Providers Provider Date of Service: 07/03/21 Date of admission: 06/23/21 23:10 Date of discharge: 07/03/21 Primary care physician: Unknown Physician Attending physician on admission: Bhupinder Chavez Attending physician on discharge: Bhupinder Chavez DS: Diagnosis Discharge Diagnosis (1) MDD (major depressive disorder), recurrent episode, severe: Status: Acute (2) PTSD (post-traumatic stress disorder): Status: Acute (3) Opioid dependence: Status: Acute DS: Medications Discharge Medications Home Medications: Previous Rx's Medication Instructions Recorded naloxone 4 mg/actuation nasal 4 mg INTRANASAL (ALT) ONCE PRN 1 03/15/20 spray (Narcan) Days #1 ea albuterol sulfate 90 mcg/actuation 2 puff INHALATION Q4H PRN 30 Days 07/03/21 aerosol inhaler (ProAir HFA) #6.7 g buprenorphine 2 mg-naloxone 0.5 mg 1 film BUCCAL BID PRN 5 Days #10 ea 07/03/21 sublingual film (Suboxone) buprenorphine 8 mg-naloxone 2 mg 2 film SUBLINGUAL DAILY 5 Days #10 07/03/21 sublingual film (Suboxone) ea chlorpromazine 50 mg tablet See Rx Instructions .ROUTE 07/03/21 .COMPLEX #120 tab clonazepam 1 mg tablet See Rx Instructions .ROUTE 07/03/21 .COMPLEX PRN 15 Days #30 tab cyclobenzaprine 10 mg tablet 10 mg PO BID PRN 30 Days #60 tab 07/03/21 fluvoxamine 50 mg tablet 50 mg PO BEDTIME 30 Days #30 tab 07/03/21 mirtazapine 7.5 mg tablet 7.5 mg PO BEDTIME 30 Days #30 tab 07/03/21 Mental Status Exam Mental Status Exam Narrative: Pt is alert and oriented; behavior is cooperative and calm; patient is not in distress; dressed in casual, appropriate cloths, well groomed and good hygiene; mood is described as good and affect congruent, more calm; eye contact adequate; Speech is normal rate, volume and prosody and not pressured; no psychomotor retardation present; thought process is organized and goal directed; Thought content is on tx; otherwise pertinent to relevant topics and without any delusional content, paranoid ideations or grandiosity; denies any SI or any denies HI. There is no evidence of perceptual disturbance. ?Patients insight and judgment are adequate and fair. Data Data Completed and Pending Completed studies during hospitalization [Text1]: 06/28/21 07:11 Total Bilirubin 0.2 Direct Bilirubin < 0.2 AST 14 ALT 7 Alkaline Phosphatase 66 D Total Protein 6.6 Albumin 3.4 L DS: Summary Hospital Course Hospital Course: Pt is a 51 yo female with long hx of depression, PTSD and heroin dependence who presents for SI, recent intentional overdose, and HI in face of increased heroin use, currently in withdrawal and off her medications for a week. Pt reports she's been using heroin consistently for at least 15 years with some brief periods of sobriety.? Patient reports that until about 2 months ago she was using heroin every other day but it has now become daily about 2 g per day.? Patient reports that she has chronic, intermittent suicidal ideation as well as chronic intermittent thoughts about robbing a bank.? She reports that over the last week her depression increased and so did her suicidality.? On admission, pt was depressed, though SI and HI soon resolved. She was detoxing with methadone and eventually successfully transitioned to suboxone. Pt at first wanted to get back on Venlafaxine but eventually concluded it was not that helpful and agreed to start Fluvoxamine which was titrated to good effect. She was also started on Mirtazpine and was eventually able to realize she could sleep w/out any Ambien, which she agreed to discontinue given it's risks/side-effects. Pt also benefited from low dose Thorazine for insomnia. Pt was enaged in treatment, attending groups and being forthcoming during 1:1 sessions. Over subsequent days, her mood significantly improved and she reported she actually feels happy and the best she's felt in a long time. Pt says usually she leaves hospitals too soon, but she reports feeling ready and a little excited about going home. Pt is tolerating suboxone; sign writer letterer or painter discussed and pt agrees to increase to 16/4mg daily all at once; sign writer letterer or painter provided further education on this med, risks/side-effects. Regarding insomnia, pt says she is able to fall asleep w/out a problem but keeps waking up every 2 hours or so for various reasons, sometimes, anxious, sometimes naturally...upon further discussion pt says she thinks it's likely hx of trauma and that her body has gotten used to being hypervigilent about her surroundings. She agrees with sign writer letterer or painter that Ambien in not the best for her and that she'll try to remain off it, however, she says she says it does help her stay asleep. Pt understands however that as she continues to address ptsd/trauma hx, her frequent waking up will hopefully decrease. Given pt's mutliple med changes/titrations over admission, agreed to leave Fluvoxamine at current dose and let outpt provider f/u. Pt denies any SI or HI and no passive wish. Optimistic and wants to restart therapy. Pt felt ready for discharge and ready to return home. There was a coming snow storm so patient wanted to discharge a day earlier than was planned; sign writer letterer or painter advised staying longer so that discharge is not rushed, but she decided she was ready. She discussed her vulnerability to relapse but knows it will be a chronic struggle for her that she'll need to work on for a long while. She remains in a good mood w/out any SI or HI and agrees to present again if she feels unsafe. Pt not in imminent risk of harm to herself or others and her request for discharge honored. med trials: Venlafaxine: does not think it was all that helpful Zoloft: Helpful however increased liver enzymes so discontinued Lexapro 10 mg Lamictal: Sub therapeutic dose Abilify 5 mg Mirtazapine 15 mg Oxcarbamazepine 600 Wellbutrin:? 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 Referrals: QUINN GARAY RN [Other] - 07/05/21 (FAX- [phone] services will resume after D/C ) [facility] [Other] - 07/08/21 10:00 am (Outpatient MAT treatment at [facility] [Other] - 1 Week (Outpatient provider appointment with therapist) [facility] [Other] - 1 Week (Outpatient psychiatry appointment ) Discharge Medications: New chlorpromazine 50 mg tablet See Rx Instructions .ROUTE .COMPLEX Qty: 120 0RF Rx Instructions: take 1 tab BID as needed for anxiety; take 2 tabs at bedtime as needed for insomnia Discontinued quetiapine [Seroquel] 200 mg tablet 200 mg PO BEDTIME 30 Days Qty: 30 0RF venlafaxine 150 mg Capsule,Extended Release 24hr 300 mg PO DAILY 30 Days Qty: 60 0RF quetiapine 50 mg Tablet 50 mg PO TID PRN (Reason: Anxiety) 30 Days Qty: 90 0RF clonazepam 1 mg tablet 1 mg PO BEDTIME 0RF albuterol sulfate [ProAir HFA] 90 mcg/actuation HFA aerosol inhaler 2 puff inhalation Q4H PRN (Reason: Shortness Of Breath Or Wheezing) 0RF zolpidem [Ambien] 10 mg tablet 10 mg PO BEDTIME 0RF methadone solution 20 mg PO DAILY 0RF clonazepam 1 mg tablet 0.5 mg PO BID 0RF No Action fluvoxamine 50 mg tablet 1 tab PO BEDTIME 0RF albuterol sulfate [ProAir HFA] 90 mcg/actuation HFA aerosol inhaler 2 puff inhalation Q4H PRN (Reason: wheezing) 0RF mirtazapine 7.5 mg tablet 1 tab PO BEDTIME 0RF buprenorphine-naloxone [Suboxone] 8-2 mg film 2 strip sublingual DAILY 0RF cephalexin 500 mg Capsule 500 mg PO QID 2 Days Qty: 7 0RF doxycycline hyclate 100 mg Tablet 100 mg PO BID 2 Days Qty: 3 0RF nicotine 21 mg/24 hr Patch 24 Hour 21 mg transdermal DAILY PRN (Reason: smoking cessation) 28 Days Qty: 28 0RF buprenorphine-naloxone [Suboxone] 2-0.5 mg Film 1 film sublingual BID PRN (Reason: Pain, Moderate (Pain Scale 4-6) Qty: 0 0RF clonazepam 1 mg tablet See Rx Instructions .ROUTE .COMPLEX PRN (Reason: anxiety) 15 Days Qty: 30 0RF Rx Instructions: take 1/2 BID prn for anxiety; take 1 tab at bedtime prn for anxiety buprenorphine-naloxone [Suboxone] 2-0.5 mg film 1 film sublingual BID Qty: 14 0RF Rx Instructions: place 1 strip/tab under (each) side of tongue Discharge Orders: Discharge Order (Routine); Ordered 07/03/21 Ordered By: Bhupinder Chavez Diet: regular diet Activity on Discharge: As tolerated Stand Alone Forms: Patient Portal Discharge page, Community Support Care Plan Goals: Maintain mood and safe behaviors Take medications as prescribed Continue to pursue sobriety Practice coping skills Continue with outpatient providers and reach out to them as needed Health Concerns: Mood stability and behaviors Sobriety Chronic Back pain Plan of Treatment: Follow up with your PCP, psychiatric provider and other outpatient providers regarding above concerns Take medications as prescribed Assessment: Risk assessment at time of discharge:? Patient was interviewed prior to discharge and found to be fully oriented and without any SI or HI. Patient has insight and demonstrates good judgment in terms of wanting to pursue treatment. Patient is not in imminent risk of harm to self or others and has a safety plan that includes presenting to the closest ER or calling 911 if feeling unsafe.? Patient has been observed closely by nursing and unit staff throughout admission; patient has not engaged in any behaviors that suggest dangerousness to self or others and has demonstrated appropriate behaviors and impulse control Discharge Date/Time: 07/03/21 16:00
--- NOTE | 2021-07-03 16:03 | PC.NURSE ---
Pt walked with staff to lobby where her ride was waiting. Pt verbalized understanding of discharge instructions.
== END 2021-07-03 16:00 | disposition home or self-care (01) | DRG 751 ==
LOC: HO.ED 23:16 → HO.PM5 23:18
PROVIDERS: Nurse Practitioner Family; Admitting Provider Registered Nurse; Emergency Provider Internal Medicine; Visit Provider Psychiatry & Neurology Psychiatry
DX: F33.2 Major depressive disorder, recurrent severe without psychotic features (principal); R45.851 Suicidal ideations; F43.10 Post-traumatic stress disorder, unspecified; F11.20 Opioid dependence, uncomplicated; F17.210 Nicotine dependence, cigarettes, uncomplicated; Z20.822 Contact with and (suspected) exposure to COVID-19; Z71.6 Tobacco abuse counseling; Z88.2 Allergy status to sulfonamides; Z88.6 Allergy status to analgesic agent; Z79.899 Other long term (current) drug therapy
CPT/HCPCS: 36415; 80053; 80076; 80307; 81001; 82077; 85025; 87635; 93005; 99285

== ENCOUNTER 2021-07-08 21:19 | Inpatient (IN) | payer OTHER, SELFPAY ==
--- NOTE | ~2021-07-08 | US_ITS ---
EXAMINATION: US VENOUS ULTRASOUND WITH DOPPLER LOWER EXTREMITY, LEFT CLINICAL INFORMATION: Left lower extremity pain and swelling COMPARISON: 03/22/2019 TECHNIQUE: Ultrasound of the deep veins is performed from the hip to the calf with compression sonography and color and pulse Doppler assessment. Spectral analysis with color-flow imaging is performed. FINDINGS: There is normal venous compression and respiratory variation and augmented flow. The visualized common femoral vein, superficial femoral vein, profunda femoral vein, popliteal vein, and the trifurcation region shows no evidence of deep venous thrombosis. There is a fluid collection seen in the left popliteal fossa measuring 3.9 x 0.6 x 1.0 cm, similar to prior. The contralateral right common femoral vein appears normal. If the patient's symptoms persist, followup ultrasound in 5 days 7 days might be of value to exclude proximal propagation from a non-visualized calf vein. US/US venous duplex LE IMPRESSION: No DVT demonstrated in the left lower extremity. A left sided Thompson's cyst is present, similar to prior.
[2021-07-08 21:37] VITALS: BP 121/78; BP 138/84; PULSE 107; PULSE 95; RESP 16; TEMP 37.3; O2SAT 97; O2SAT 98; BMI 24.0
--- NOTE | 2021-07-08 22:23 | ED.PSYCH ---
HPI - Psych General Chief Complaint: Psychiatric Symptoms Stated Complaint: crisis/SI Time Seen by Provider: 07/08/21 22:23 Source: patient and EMS Mode of arrival: EMS Limitations: no limitations History of Present Illness HPI Narrative: This is a 51-year-old female past medical history significant for PTSD, major depression, polysubstance abuse, IV drug abuse presenting to the emergency department with complaints of intermittent suicidal ideation, and pain behind the left knee. Patient tells me that she tried to inject heroin behind the knee few days ago. In this site quickly became red, inflamed, and painful. She tells me that she was recently here and patient at our hospital, for depression. She tells me she was here for about a week. When she left she has it she is feeling great however she started to compensating. She tells me she was discharged on a bunch of new medications, some of which she had a hard time getting from the pharmacy. She also mentions to me that today she blacked out for a moment and just remembers having scissors in her hand. She denies visual, auditory and tactile hallucinations. She is having intermittent suicidal ideation without a specific plan. Denies homicidal ideation. Admits to IV heroin use, no other drugs, denies tobacco, alcohol abuse. She denies fevers, chills, nausea, vomiting, chest pain, shortness of breath. MD complaint: suicidal ideation and feels depressed Duration: constant History of same: Yes Relieving factors: none Exacerbating factors: none Context: recent drug abuse and new medication(s) Associated psychiatric symptoms: depression and suicidal ideation Associated symptoms: denies other symptoms Treatments prior to arrival: none If self harm: admits thoughts of self harm Related Data Previous Rx's Medication Instructions Recorded naloxone 4 mg/actuation nasal 4 mg INTRANASAL (ALT) ONCE PRN 1 03/15/20 spray (Narcan) Days #1 ea albuterol sulfate 90 mcg/actuation 2 puff INHALATION Q4H PRN 30 Days 07/03/21 aerosol inhaler (ProAir HFA) #6.7 g buprenorphine 2 mg-naloxone 0.5 mg 1 film BUCCAL BID PRN 5 Days #10 ea 07/03/21 sublingual film (Suboxone) buprenorphine 8 mg-naloxone 2 mg 2 film SUBLINGUAL DAILY 5 Days #10 07/03/21 sublingual film (Suboxone) ea chlorpromazine 50 mg tablet See Rx Instructions .ROUTE 07/03/21 .COMPLEX #120 tab clonazepam 1 mg tablet See Rx Instructions .ROUTE 07/03/21 .COMPLEX PRN 15 Days #30 tab cyclobenzaprine 10 mg tablet 10 mg PO BID PRN 30 Days #60 tab 07/03/21 fluvoxamine 50 mg tablet 50 mg PO BEDTIME 30 Days #30 tab 07/03/21 mirtazapine 7.5 mg tablet 7.5 mg PO BEDTIME 30 Days #30 tab 07/03/21 cephalexin 500 mg tablet 500 mg PO Q6H 10 Days #40 tab 07/09/21 doxycycline hyclate 100 mg capsule 100 mg PO BID 10 Days #20 cap 07/09/21 Allergies Allergy/AdvReac Type Severity Reaction Status Date / Time trazodone [TRAZODONE] Allergy Severe SHORTNESS Verified 01/14/21 02:23 OF BREATH, GASPING FOR AIR , SOB aspirin [ASPIRIN] Allergy Unknown STOMACH Verified 01/14/21 02:23 UPSET, Nausea, nausa ciprofloxacin [Cipro] Allergy Unknown Rash Verified 01/14/21 02:23 promethazine [Phenergan] Allergy Unknown Hives Verified 01/14/21 02:23 Sulfa (Sulfonamide Allergy Unknown Unknown Verified 01/14/21 02:23 Antibiotics) Review of Systems Review of Systems: Constitutional : No Fever, No Chills ENT/Mouth : No sore throat, No Rhinorrhea Eyes: No Eye Pain, No Swelling, No Redness Cardiovascular : No Chest Pain, No SOB Respiratory : No Cough, No Sputum Gastrointestinal : No Nausea, No Vomiting, No Diarrhea, No abdominal Pain Genitourinary : No Dysuria, No Hematuria Musculoskeletal : No joint pain, No Myalgias, + Joint Swelling Skin : No Skin Lesions, No rash Neuro : No Weakness, No Numbness Psych : No Anxiety, + Depression, + SI, No HI/AH/VH/TH Heme/Lymph: No Bruising, No Bleeding Endocrine : No Polyuria, No Polydipsia All other systems reviewed and are negative Yes all other systems are reviewed and are negative [facility] Past Medical History Attestation statement: The following information was validated with the patient. Source: old records reviewed and nursing notes reviewed Medical History Asthma Cocaine use disorder, moderate, dependence COPD (chronic obstructive pulmonary disease) Major depression, recurrent MDD (major depressive disorder), recurrent episode, severe Opioid dependence Post traumatic stress disorder PTSD (post-traumatic stress disorder) Social History Social History Household Members: None Housing: Apartment Do you presently have visiting nurse or other home services: No 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: never Patient Tobacco Use Status: Current everyday Tobacco user Tobacco use type: Cigarette Cigarette Packs Per Day: 0 Cigarettes Per Day: 10 Years Smoked: whole life e-Cigarette/Vaping Use: Never Used Second Hand Smoke Exposure: No Substance Use Type: Crack/Cocaine, Heroin, Opiates, Other and Prescription Drugs Advance Directives: Yes Advance Directives Information Provided: No Advance Directives on File: No Advance Directives Date on File: 09/20/20 Patient : No service: No Current occupational status: disabled Sexual orientation: Straight/Heterosexual Physical Exam Vital Signs: Vital Signs: Last Vital Signs Temp 99.2 F 07/08/21 21:37 Pulse 84 07/08/21 23:41 Resp 16 07/08/21 23:41 BP 100/64 07/08/21 23:41 Pulse Ox 98 07/08/21 23:41 BMI result Body Mass Index 24.0 VSS Appearance: Alert.? Oriented X3.? No acute distress.? Head: Normocephalic, atraumatic, no step-offs or deformities Eyes: Pupils equal, round and reactive to light.? ENT: Pharynx normal.? Neck: Normal inspection.? Neck supple.? CVS: Normal heart rate and rhythm.? Pulses normal.? Respiratory: No respiratory distress.? Breath sounds normal.? Abdomen: Soft and nontender.? Skin: Skin warm and dry.? Normal skin color.? Normal skin turgor.? Extremities: No lower extremity edema.? No calf ttp. 5/5 strength to bilateral upper and lower extremities + erythema and tenderness to the posterior aspect of left knee. Consistent with cellulitis. Back: No midline tenderness, no C-spine tenderness, full range of motion, no CVA tenderness bilaterally Neuro: Oriented X 3.? No motor deficit.? No sensory deficit. CN 2-12 intact Course Reevaluation(s) Reevaluation #1: CBC within normal limits patient appears to have a normocytic anemia at baseline. Chemistry with no acute electrolyte abnormalities. UA negative for infection. UA positive for fentanyl and cocaine. COVID negative. Pending ultrasound of left lower extremity. Time: 23:31 Reevaluation #2: Ultrasound of the left lower extremity with no DVT. A left-sided Thompson cyst is noted. This does not appear to be a new finding. At this time patient will be placed in physician observation to allow more time for patient to be evaluated by the behavioral health team. I will give patient doxycycline and Keflex p.o. by mouth now. At time observation was started vital signs are stable. Patient was, cooperative in no acute distress. She has a sitter at the bedside. Time: 01:51 MDM - Psych MDM Narrative Medical decision making narrative: 2222 51 yo f presents with intermittent suicidal ideation, depression and redness and swelling to the posterior aspect of left knee x1 week worsening. Patient reports IV drug abuse and she tells me she injected behind the left knee. Physical examination significant for erythema and swelling and pain to palpation to the posterior aspect of left knee. Full range of motion to bilateral knees. Plan at this time labs, urine, drug tox, doppler to rule out DVT Likely small area of cellulitis to left lower extremity that can be treated with p.o. doxycycline/ Keflex. Medical Records Attestation: I reviewed the patient's medical records. Lab Data Attestation: I reviewed the patient's lab results. Result diagrams: 07/08/21 22:52 07/08/21 22:52 Labs: Lab Results 07/08/21 07/08/21 07/08/21 Range/Units 22:52 22:52 22:52 WBC 7.4 (4.8-10.8) X10*3/uL RBC 3.79 L (4.20-5.50) X10*6/uL Hgb 10.6 L (12.0-16.0) g/dl Hct 34.1 L (37.0-47.0) % MCV 90.0 (80.0-98.0) fL MCH 28.0 (27.0-33.0) pg MCHC 31.1 (31.0-35.0) g/dl RDW 15.8 (11.0-16.0) % Plt Count TNP MPV 12.0 (9.4-12.3) fL Immature Gran % (Auto) 0.4 (0.0-0.4) % Neut % (Auto) 70.0 (45-73) % Lymph % (Auto) 21.9 (20-40) % [place] % (Auto) 7.3 (2-11) % Eos % (Auto) 0.3 (0-4) % Baso % (Auto) 0.1 (0-2) % Lymph # (Auto) 1.6 (1.2-4.9) X10*3/uL [place] # (Auto) 0.5 (0.1-1.2) X10*3/uL Eos # (Auto) 0.0 (0.0-0.4) X10*3/uL Baso # (Auto) 0.0 (0.0-0.2) X10*3/uL Abs Immat Gran (auto) 0.03 (0.00-0.03) X10*3/uL Absolute Neuts (auto) 5.2 (2.0-8.3) x10*3/uL Absolute Nucleated RBC 0.000 (0.0-0.012) X10*3/uL Nucleated RBC % (auto) 0.0 (0.0-0.2) /100WBC Smear Tech's Comments VERIFIED Sodium 139 (135-145) mmol/L Potassium 4.0 D (3.3-5.1) mmol/L Chloride 105 (96-108) mmol/L Carbon Dioxide 21 L (22-29) mmol/L Anion Gap 17 (12-20) BUN 12 (9-16) mg/dL Creatinine 0.66 (0.5-1.4) mg/dL Estim Creat Clear Calc 87.0 Estimated GFR > 60 Random Glucose 133 H (60-115) mg/dL Calcium 9.8 (8.4-10.2) mg/dL Total Bilirubin 0.3 (0.0-1.0) mg/dL AST 20 D (5-31) U/L ALT 12 (0-31) U/L Alkaline Phosphatase 81 D (39-117) U/L Total Protein 8.3 H D (6.5-8.0) g/dL Albumin 4.4 D (3.5-5.0) g/dL Urine Color Urine Appearance Urine pH (5.0-8.0) Ur Specific [place] (1.005-1.025) Urine Protein (NEG-TRACE) MG/DL Urine Glucose (UA) (NEG) MG/DL Urine Ketones (NEG) MG/DL Urine Blood (NEG) Urine Nitrite (NEG) Ur Leukocyte Esterase (NEG) Urine RBC (0) /HPF Urine WBC (0-4) /HPF Ur Squamous Epith Cells /LPF Ur Renal Epithelial Cell /LPF Urine Bacteria /LPF Urine Mucus /LPF Urine Opiates Screen (Not Detect) Urine Fentanyl Screen (Not Detect) Ur Barbiturates Screen (Not Detect) Ur Phencyclidine Scrn (Not Detect) Ur Amphetamines Screen (Not Detect) U Benzodiazepines Scrn (Not Detect) Urine Cocaine Screen (Not Detect) U Marijuana (THC) Screen (Not Detect) Ethyl Alcohol mg/dL COVID-19 (SAMANTHA) Negative (Negative) COVID-19 Clin Com See Note 07/08/21 07/08/21 07/08/21 Range/Units 22:52 22:52 22:52 WBC (4.8-10.8) X10*3/uL RBC (4.20-5.50) X10*6/uL Hgb (12.0-16.0) g/dl Hct (37.0-47.0) % MCV (80.0-98.0) fL MCH (27.0-33.0) pg MCHC (31.0-35.0) g/dl RDW (11.0-16.0) % Plt Count MPV (9.4-12.3) fL Immature Gran % (Auto) (0.0-0.4) % Neut % (Auto) (45-73) % Lymph % (Auto) (20-40) % [place] % (Auto) (2-11) % Eos % (Auto) (0-4) % Baso % (Auto) (0-2) % Lymph # (Auto) (1.2-4.9) X10*3/uL [place] # (Auto) (0.1-1.2) X10*3/uL Eos # (Auto) (0.0-0.4) X10*3/uL Baso # (Auto) (0.0-0.2) X10*3/uL Abs Immat Gran (auto) (0.00-0.03) X10*3/uL Absolute Neuts (auto) (2.0-8.3) x10*3/uL Absolute Nucleated RBC (0.0-0.012) X10*3/uL Nucleated RBC % (auto) (0.0-0.2) /100WBC Smear Tech's Comments Sodium (135-145) mmol/L Potassium (3.3-5.1) mmol/L Chloride (96-108) mmol/L Carbon Dioxide (22-29) mmol/L Anion Gap (12-20) BUN (9-16) mg/dL Creatinine (0.5-1.4) mg/dL Estim Creat Clear Calc Estimated GFR Random Glucose (60-115) mg/dL Calcium (8.4-10.2) mg/dL Total Bilirubin (0.0-1.0) mg/dL AST (5-31) U/L ALT (0-31) U/L Alkaline Phosphatase (39-117) U/L Total Protein (6.5-8.0) g/dL Albumin (3.5-5.0) g/dL Urine Color YELLOW Urine Appearance HAZY Urine pH 5.5 (5.0-8.0) Ur Specific [place] >= 1.030 H (1.005-1.025) Urine Protein TRACE (NEG-TRACE) MG/DL Urine Glucose (UA) NEG (NEG) MG/DL Urine Ketones NEG (NEG) MG/DL Urine Blood 1+ H (NEG) Urine Nitrite NEG (NEG) Ur Leukocyte Esterase NEG (NEG) Urine RBC 1-4 (0) /HPF Urine WBC 0 (0-4) /HPF Ur Squamous Epith Cells 3+ /LPF Ur Renal Epithelial Cell 1+ /LPF Urine Bacteria TRACE /LPF Urine Mucus 2+ /LPF Urine Opiates Screen Not Detected (Not Detect) Urine Fentanyl Screen POSITIVE H (Not Detect) Ur Barbiturates Screen Not Detected (Not Detect) Ur Phencyclidine Scrn Not Detected (Not Detect) Ur Amphetamines Screen Not Detected (Not Detect) U Benzodiazepines Scrn Not Detected (Not Detect) Urine Cocaine Screen POSITIVE H (Not Detect) U Marijuana (THC) Screen Not Detected (Not Detect) Ethyl Alcohol < 10 mg/dL COVID-19 (SAMANTHA) (Negative) COVID-19 Clin Com Critical Care Time Critical Care Time Critical Care Time: No Discharge Plan Discharge Clinical Impression: Cellulitis, Suicidal ideation, Depression Patient Disposition: Still a Patient Instructions: Cellulitis (ED), Depression (ED), Suicide Prevention (ED), Depression in Older Adults (ED) Additional Instructions: Take your medications as prescribed. If you were prescribed antibiotics today, it is important that you take your medication to their entirety, do not skip any doses, do not finish them early. Follow-up with your primary care provider this week. Please follow-up with your therapist/psychiatrist as soon as possible. Return to the emergency department with new or worsening symptoms. Such as fevers, chills, nausea, vomiting, chest pain, shortness of breath, worsening of redness, swelling to the lower extremities, fevers, chills. In case of emergency call 911 Prescriptions: New doxycycline hyclate 100 mg capsule 100 mg PO BID 10 Days Qty: 20 0RF cephalexin 500 mg tablet 500 mg PO Q6H 10 Days Qty: 40 0RF No Action naloxone [Narcan] 4 mg/actuation [place],Non-Aerosol 4 mg intranasal (ALT) ONCE PRN (Reason: opioid overdose) 1 Days Qty: 1 0RF cyclobenzaprine 10 mg Tablet 10 mg PO BID PRN (Reason: muscle cramps) 30 Days Qty: 60 0RF chlorpromazine 50 mg tablet See Rx Instructions .ROUTE .COMPLEX Qty: 120 0RF Rx Instructions: take 1 tab BID as needed for anxiety; take 2 tabs at bedtime as needed for insomnia fluvoxamine 50 mg Tablet 50 mg PO BEDTIME 30 Days Qty: 30 0RF mirtazapine 7.5 mg Tablet 7.5 mg PO BEDTIME 30 Days Qty: 30 0RF buprenorphine-naloxone [Suboxone] 8-2 mg Film 2 film sublingual DAILY 5 Days Qty: 10 0RF buprenorphine-naloxone [Suboxone] 2-0.5 mg film 1 film buccal BID PRN (Reason: pain) 5 Days Qty: 10 0RF Rx Instructions: place 1 strip/tab under (each) side of tongue clonazepam 1 mg tablet See Rx Instructions .ROUTE .COMPLEX PRN (Reason: anxiety) 15 Days Qty: 30 1RF Rx Instructions: take 1/2 tab BID as needed for anxiety; take 1 tab at bedtime as needed for nighttime anxiety albuterol sulfate [ProAir HFA] 90 mcg/actuation HFA aerosol inhaler 2 puff inhalation Q4H PRN (Reason: Shortness Of Breath Or Wheezing) 30 Days Qty: 6.7 0RF Referrals: Physician,None [Primary Care Provider] - 2 days
[2021-07-08 23:00] LABS: Basophils Percent Auto 0.1 % (0-2); Eosinophils Percent Auto 0.3 % (0-4); Hematocrit 34.1 % (37.0-47.0); Hemoglobin 10.6 g/dl (12.0-16.0); Imm Gran Abs Auto 0.03 X10*3/uL (0.00-0.03); Imm Gran Pct Auto 0.4 % (0.0-0.4); Lymphocytes Absolute Auto 1.6 X10*3/uL (1.2-4.9); Lymphocytes Percent Auto 21.9 % (20-40); MANUAL DIFF FLAG SCAN; Mean Corpuscular HGB Conc 31.1 g/dl (31.0-35.0); Monocytes Absolute Auto 0.5 X10*3/uL (0.1-1.2); Monocytes Percent Auto 7.3 % (2-11); Neutrophils Absolute Auto 5.2 x10*3/uL (2.0-8.3); PLT CLUMP 1; Red Blood Count 3.79 X10*6/uL (4.20-5.50); Red Cell Distribution Width 15.8 % (11.0-16.0); SCAN SMEAR FLAG 1
[2021-07-08 23:02] LABS: White Blood Count 7.4 X10*3/uL (4.8-10.8)
[2021-07-08 23:03] LABS: Appearance Urine HAZY; Color Urine YELLOW; Glucose Urine UA NEG (NEG); Leukocyte Esterase Urine NEG (NEG); Nitrite Urine NEG (NEG); PH 5.5 (5.0-8.0); Specific Gravity - Urine >= 1.030 (1.005-1.025); UACC Culture Trigger NO; Urine Blood 1+ (NEG); Urine Ketones NEG (NEG); Urine Protein TRACE MG/DL (NEG-TRACE)
[2021-07-08 23:09] LABS: Bacteria Urine TRACE /LPF; Mucus Urine 2+ /LPF; Renal Epithelial Cells Urine 1+ /LPF; Squamous Epithelial Cell Urine 3+ /LPF; WBC Urine 0 /HPF (0-4)
[2021-07-08 23:11] LABS: Ethanol < 10 mg/dL
[2021-07-08 23:14] LABS: Alanine Aminotransferase 12 U/L (0-31); Albumin Level 4.4 g/dL (3.5-5.0); Alkaline Phosphatase 81 U/L (39-117); Anion Gap 17 (12-20); Aspartate Amino Transferase 20 U/L (5-31); Bilirubin Total 0.3 mg/dL (0.0-1.0); Blood Urea Nitrogen 12 mg/dL (9-16); Calcium 9.8 mg/dL (8.4-10.2); Carbon Dioxide 21 mmol/L (22-29); Chloride 105 mmol/L (96-108); Estimated Glomerular Filt Rate > 60; Glucose Random 133 mg/dL (60-115); Sodium 139 mmol/L (135-145); Total Protein 8.3 g/dL (6.5-8.0)
[2021-07-08 23:17] LABS: COVID-19 Test Negative (Negative)
[2021-07-08 23:19] LABS: Amphetamine Screen Urine Not Detected (Not Detect); Barbiturates, Urine Not Detected (Not Detect); Benzodiazepines Screen Urine Not Detected (Not Detect); Cannabinoid Screen Urine Not Detected (Not Detect); Cocaine Screen Urine POSITIVE (Not Detect); Fentanyl, urine POSITIVE (Not Detect); Opiate Screen Urine Not Detected (Not Detect); Phencyclidine Screen Urine Not Detected (Not Detect)
[2021-07-08 23:23] LABS: SLIDE REVIEW VERIFIED
[2021-07-08 23:41] VITALS: BP 100/64; PULSE 84; RESP 16; O2SAT 98
--- NOTE | 2021-07-09 | ECG_ITS ---
Test Reason : MED CLEARANCE Blood Pressure : / mmHG Vent. Rate : 082 BPM Atrial Rate : 082 BPM P-R Int : 138 ms QRS Dur : 078 ms QT Int : 386 ms P-R-T Axes : 011 042 044 degrees QTc Int : 450 ms Normal sinus rhythm Normal ECG When compared with ECG of 23-JUN-2021 22:51, No significant change was found Referred By: Roseline Dee Electronically Signed By:Andres Dial
[2021-07-09] MEDS: cephALEXin 500 MG CAPSULE PO ×3 (02:15→19:44)
[2021-07-09 02:17] VITALS: BP 91/55; PULSE 86; RESP 18; O2SAT 97
--- NOTE | 2021-07-09 05:39 | PC.NURSE ---
[facility]
--- NOTE | 2021-07-09 06:10 | PC.NURSE ---
Patient was just transferred from main ED, ambulated independently with minimal limping from drug use, calm and quiet, no distress reported or observed, [facility] referral completed and confirmed pending evaluation in the morning, med rec completed/pending provider's approval, will continue to monitor.
[2021-07-09 06:29] VITALS: BP 102/75; PULSE 82; RESP 16; TEMP 37.1; O2SAT 98
--- NOTE | 2021-07-09 07:32 | PC.NURSE ---
patient appears to remain asleep at present respirations are even and unlabored patient appears in no distress
[2021-07-09] MEDS: chlorproMAZINE HCl 25 MG TABLET PO (12:52)
[2021-07-09] MEDS: lamoTRIgine 100 MG TABLET PO (12:52)
--- NOTE | 2021-07-09 13:35 | MHC.CARE ---
Patient evaluated by the CARE Team to need inpatient psychiatric care, written assessment to follow.
[2021-07-09] MEDS: clonazePAM 0.5 MG TABLET PO (17:02)
[2021-07-09 17:08] VITALS: BP 104/68; PULSE 89; RESP 18; TEMP 36.9; O2SAT 100
[2021-07-09] MEDS: chlorproMAZINE HCl 25 MG TABLET 50 MG PO ×2 (19:45→23:35)
[2021-07-09] MEDS: Mirtazapine 7.5 MG TABLET PO (21:00)
[2021-07-09] MEDS: fluvoxaMINE Maleate 50 MG TABLET PO (21:06)
[2021-07-09 21:28] VITALS: BP 108/70; PULSE 89; RESP 16; TEMP 36.3; O2SAT 100; BMI 24.6
--- NOTE | 2021-07-09 22:26 | PC.ADMIT ---
Pt is a 51y/o female admitted for inpatient level of care for depression and SI. Pt reports that she has been off of her meds since discharge from on 07/03/21 and relapsed on heroin and cocain. Pt decompensated quickly, feels depressed with SI and feels she cannot manage this all alone and would like to be stabilized. Pt is alert and oriented X3, VSS, Covid negative, Tox positive for cocain and fentanyl. Pt appears disheveled, slightly labile, Speech is coherent with normal tone and rhythm. Pt denies SI/HI/AH/VH. Pt reports cellulites behind the knee from IV drug use access. Admission orders obtained.
[2021-07-10 06:00] VITALS: BP 117/68; PULSE 89; TEMP 36.6; O2SAT 98
[2021-07-10] MEDS: Buprenorphine/Naloxone 8/2 mg FILM 2 FILM SUBLINGUAL (08:34)
[2021-07-10] MEDS: lamoTRIgine 100 MG TABLET PO (08:34)
[2021-07-10] MEDS: clonazePAM 0.5 MG TABLET PO (09:50)
[2021-07-10 09:56] LABS: Free T4 (Free Thyroxine) 0.77 ng/dL (0.71-1.85); Thyroid Stimulating Hormone 3.76 uIU/mL (0.32-4.0)
[2021-07-10 10:21] LABS: Folate 6.9 ng/mL (> or = 4.0); Vitamin B12 343 pg/mL (200-900)
[2021-07-10] MEDS: chlorproMAZINE HCl 25 MG TABLET 50 MG PO (14:00)
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
[2021-07-10] MEDS: cephALEXin 500 MG CAPSULE PO ×2 (18:23→21:07)
[2021-07-10] MEDS: Loperamide HCl 2 MG CAPSULE 4 MG PO (18:23)
[2021-07-10] MEDS: Mirtazapine 7.5 MG TABLET PO (21:06)
[2021-07-10] MEDS: chlorproMAZINE HCl 100 MG TABLET PO (21:07)
[2021-07-10] MEDS: fluvoxaMINE Maleate 50 MG TABLET PO (21:07)
[2021-07-10 21:10] VITALS: BP 100/60; PULSE 88; TEMP 36.7
[2021-07-11 06:00] VITALS: BP 99/57; PULSE 82; RESP 16; TEMP 37; O2SAT 96
[2021-07-11] MEDS: Buprenorphine/Naloxone 8/2 mg FILM 2 FILM SUBLINGUAL (09:59)
[2021-07-11] MEDS: cephALEXin 500 MG CAPSULE PO ×4 (09:59→20:35)
[2021-07-11] MEDS: Loperamide HCl 2 MG CAPSULE PO (10:00)
--- NOTE | 2021-07-11 10:19 | HO.PSYCHPN ---
Subjective Subjective Date of Service: 07/11/21 Reason For Visit: Depression,SI Interim History: Patient reports that her mood is better and that is overall .good she denies any SI and says depression is resolved. Patient says she just got overwhelmed which she does easily and and feels that she will be able to discharge next week. She thinks that she would do better if the [facility] could meter the day she discharges. Patient is overall sleeping okay. She is also tolerating antibiotics making use of Imodium. Mental Status Exam Mental Status Exam Narrative: Pt is alert and oriented; behavior is cooperative and calm; patient is not in distress; dressed in casual attire with washed hair and adequate hygiene; mood is described as good and affect congruent; eye contact appropriate; Speech is normal rate, volume and prosody and not pressured; psychomotor retardation present; thought process is organized and goal directed; Thought content is on tx; otherwise pertinent to relevant topics and without any delusional content, paranoid ideations or grandiosity; denies SI/HI. There is no evidence of perceptual disturbance. ?Patients insight and judgment appear intact. Diagnostics Vital Signs (24Hr): Vital Signs - 24 hr 07/10/21 21:10 07/11/21 06:00 Temperature 98.1 F 98.6 F Pulse Rate 88 82 Respiratory Rate 16 Blood Pressure 100/60 99/57 L Pulse Oximetry 96 BMI result Body Mass Index 24.6 Labs Results: 07/08/21 22:52 07/08/21 22:52 Labs: Laboratory Results - last 48 hr 07/10/21 07/10/21 08:32 08:32 Magnesium 2.0 Vitamin B12 343 Folate 6.9 TSH 3.76 Free T4 0.77 Imaging Radiology Impressions: ITS Impressions Venous Duplex 07/09/21 00:30 IMPRESSION: No DVT demonstrated in the left lower extremity. A left sided Thompson's cyst is present, similar to prior. Medications Medications Current Medications Acetaminophen (Acetaminophen 325 Mg Tablet) 650 mg PO Q6H PRN PRN Reason: Headache/Pain Mild Scale (1-3) Al Hydroxide/Mg Hydroxide (Magnesium Hydrox/Alum Hydrox 30 Ml Oral.Susp) 30 ml PO Q6H PRN PRN Reason: Heartburn/Nausea Albuterol Sulfate (Albuterol Sulfate 90 Mcg 8 Gm Inhaler) 2 puff INHALE Q4H PRN PRN Reason: wheezing Buprenorphine/Naloxone (Buprenorphine/Naloxone 8/2 Mg Film) 2 film SUBLINGUAL DAILY [facility] Last Admin: 07/11/21 09:59 Dose: 2 film Documented by: Buprenorphine/Naloxone (Buprenorphine/Naloxone 2/0.5mg Film) 1 film SUBLINGUAL BID PRN PRN Reason: Pain, Moderate (Pain Scale 4-6 Cephalexin HCl (Cephalexin 500 Mg Capsule) 500 mg PO QID [facility] Stop: 07/16/21 12:59 Last Admin: 07/11/21 09:59 Dose: 500 mg Documented by: Chlorpromazine HCl (Chlorpromazine Hcl 100 Mg Tablet) 100 mg PO BEDTIME [facility] Last Admin: 07/10/21 21:07 Dose: 100 mg Documented by: Chlorpromazine HCl (Chlorpromazine Hcl 25 Mg Tablet) 50 mg PO QID PRN PRN Reason: Anxiety Last Admin: 07/10/21 14:00 Dose: 50 mg Documented by: Clonazepam (Clonazepam 0.5 Mg Tablet) 0.5 mg PO BID PRN PRN Reason: anxiety Last Admin: 07/10/21 09:50 Dose: 0.5 mg Documented by: Clonazepam (Clonazepam 1 Mg Tablet) 1 mg PO BEDTIME PRN PRN Reason: Insomnia Doxycycline Hyclate (Doxycycline Hyclate 100 Mg Tablet) 100 mg PO BID [facility] Stop: 07/16/21 12:59 Last Admin: 07/11/21 09:59 Dose: 100 mg Documented by: Fluvoxamine Maleate (Fluvoxamine Maleate 50 Mg Tablet) 50 mg PO BEDTIME [facility] Last Admin: 07/10/21 21:07 Dose: 50 mg Documented by: Hydroxyzine HCl (Hydroxyzine Hcl 25 Mg Tablet) 25 mg PO Q6H PRN PRN Reason: Anxiety Loperamide HCl (Loperamide Hcl 2 Mg Capsule) 2 mg PO Q4H PRN PRN Reason: Loose Stool Last Admin: 07/11/21 10:00 Dose: 2 mg Documented by: Magnesium Hydroxide (Milk Of Magnesia 30 Ml Oral.Susp) 30 ml PO DAILY PRN PRN Reason: Constipation Mirtazapine (Mirtazapine 7.5 Mg Tablet) 7.5 mg PO BEDTIME [facility] Last Admin: 07/10/21 21:06 Dose: 7.5 mg Documented by: Nicotine (Nicotine 21 Mg Patch.Td24) 21 mg TRANSDERMA DAILY PRN PRN Reason: smoking cessation Allergies Allergies Allergy/AdvReac Type Severity Reaction Status Date / Time trazodone [TRAZODONE] Allergy Severe SHORTNESS Verified 01/14/21 02:23 OF BREATH, GASPING FOR AIR , SOB aspirin [ASPIRIN] Allergy Unknown STOMACH Verified 01/14/21 02:23 UPSET, Nausea, nausa ciprofloxacin [Cipro] Allergy Unknown Rash Verified 01/14/21 02:23 promethazine [Phenergan] Allergy Unknown Hives Verified 01/14/21 02:23 Sulfa (Sulfonamide Allergy Unknown Unknown Verified 01/14/21 02:23 Antibiotics) Assessment & Plan Assessment & Plan (1) MDD (major depressive disorder), recurrent episode, severe: Status: Acute Code(s): F33.2 - Major depressive disorder, recurrent severe without psychotic features (2) PTSD (post-traumatic stress disorder): Status: Acute Code(s): F43.10 - Post-traumatic stress disorder, unspecified (3) Opioid dependence: Status: Acute Code(s): F11.20 - Opioid dependence, uncomplicated (4) Cellulitis: Status: Acute Code(s): L03.90 - Cellulitis, unspecified Plan Pt is a 51 yo female with hx of PtSD, depression, opiate dependence and cocaine abuse, now with cellulites on left leg from IV drug use, recently discharged from last week who presents for depression and SI in face of not taking her prescriptions, including Suboxone, and relapse with cocaine and heroin -SI resolved -pt restarted on meds, subxone 3/4 patient reports that depression has resolved and that her mood is good. She denies any SI. She feels that meds continue to work and thinks she will be ready to discharge early next week plan: cv q15min restart home meds tx cellulitis I spent minutes with the patient and/or on the patient floor today, greater than?50% of which was spent counseling/coordinating care. Patient educated on: diagnosis, medication risk/benefits and substance abuse Informed Consent: understands Reason for contiued inpatient stay Substantial Risk for: stable for discharge
[2021-07-11] MEDS: clonazePAM 0.5 MG TABLET PO (12:18)
[2021-07-11] MEDS: Acetaminophen 325 MG TABLET 650 MG PO (12:18)
[2021-07-11] MEDS: Buprenorphine/Naloxone 2/0.5mg FILM 1 FILM SUBLINGUAL (15:00)
[2021-07-11] MEDS: chlorproMAZINE HCl 25 MG TABLET 50 MG PO (16:46)
[2021-07-11 18:35] VITALS: BP 122/79; PULSE 94; TEMP 36.3
[2021-07-11] MEDS: Mirtazapine 7.5 MG TABLET PO (20:36)
[2021-07-11] MEDS: fluvoxaMINE Maleate 50 MG TABLET PO (20:36)
[2021-07-11] MEDS: chlorproMAZINE HCl 100 MG TABLET PO (20:36)
[2021-07-11] MEDS: clonazePAM 1 MG TABLET PO (21:18)
[2021-07-12 05:55] VITALS: BP 110/68; PULSE 83; TEMP 36.8; O2SAT 97
[2021-07-12] MEDS: cephALEXin 500 MG CAPSULE PO ×4 (08:42→20:00)
[2021-07-12] MEDS: Buprenorphine/Naloxone 8/2 mg FILM 2 FILM SUBLINGUAL (09:08)
[2021-07-12] MEDS: clonazePAM 0.5 MG TABLET PO ×2 (10:17→15:02)
[2021-07-12] MEDS: chlorproMAZINE HCl 25 MG TABLET 50 MG PO (12:27)
--- NOTE | 2021-07-12 14:54 | HO.PSYCHPN ---
Subjective Subjective Date of Service: 07/12/21 Reason For Visit: Depression,SI Subjective Notes: Conditional Voluntary Interim History: Kelley reports having dry nasal passages. She requests a saline nasal spray. She has no other immediate concerns Review of Systems Acute medical concerns: No Mental Status Exam Mental Status Exam Narrative: Pt is alert and oriented; behavior is cooperative and calm; patient is not in distress; dressed in casual attire with washed hair and adequate hygiene; mood is described as good and affect congruent; eye contact appropriate; Speech is normal rate, volume and prosody and not pressured; psychomotor retardation present; thought process is organized and goal directed; Thought content is on tx; otherwise pertinent to relevant topics and without any delusional content, paranoid ideations or grandiosity; denies SI/HI. There is no evidence of perceptual disturbance. ?Patients insight and judgment appear intact. Diagnostics Vital Signs (24Hr): Vital Signs - 24 hr 07/11/21 18:35 07/12/21 05:55 Temperature 97.3 F 98.2 F Pulse Rate 94 83 Blood Pressure 122/79 110/68 Pulse Oximetry 97 BMI result Body Mass Index 24.6 Labs Results: 07/08/21 22:52 07/08/21 22:52 Imaging Radiology Impressions: ITS Impressions Venous Duplex 07/09/21 00:30 IMPRESSION: No DVT demonstrated in the left lower extremity. A left sided Thompson's cyst is present, similar to prior. Medications Medications Current Medications Acetaminophen (Acetaminophen 325 Mg Tablet) 650 mg PO Q6H PRN PRN Reason: Headache/Pain Mild Scale (1-3) Last Admin: 07/11/21 12:18 Dose: 650 mg Documented by: Al Hydroxide/Mg Hydroxide (Magnesium Hydrox/Alum Hydrox 30 Ml Oral.Susp) 30 ml PO Q6H PRN PRN Reason: Heartburn/Nausea Albuterol Sulfate (Albuterol Sulfate 90 Mcg 8 Gm Inhaler) 2 puff INHALE Q4H PRN PRN Reason: wheezing Buprenorphine/Naloxone (Buprenorphine/Naloxone 8/2 Mg Film) 2 film SUBLINGUAL DAILY [facility] Last Admin: 07/12/21 09:08 Dose: 2 film Documented by: Buprenorphine/Naloxone (Buprenorphine/Naloxone 2/0.5mg Film) 1 film SUBLINGUAL BID PRN PRN Reason: Pain, Moderate (Pain Scale 4-6 Last Admin: 07/11/21 15:00 Dose: 1 film Documented by: Cephalexin HCl (Cephalexin 500 Mg Capsule) 500 mg PO QID [facility] Stop: 07/16/21 12:59 Last Admin: 07/12/21 12:27 Dose: 500 mg Documented by: Chlorpromazine HCl (Chlorpromazine Hcl 100 Mg Tablet) 100 mg PO BEDTIME [facility] Last Admin: 07/11/21 20:36 Dose: 100 mg Documented by: Chlorpromazine HCl (Chlorpromazine Hcl 25 Mg Tablet) 50 mg PO QID PRN PRN Reason: Anxiety Last Admin: 07/12/21 12:27 Dose: 50 mg Documented by: Clonazepam (Clonazepam 0.5 Mg Tablet) 0.5 mg PO BID PRN PRN Reason: anxiety Last Admin: 07/12/21 10:17 Dose: 0.5 mg Documented by: Clonazepam (Clonazepam 1 Mg Tablet) 1 mg PO BEDTIME PRN PRN Reason: Insomnia Last Admin: 07/11/21 21:18 Dose: 1 mg Documented by: Doxycycline Hyclate (Doxycycline Hyclate 100 Mg Tablet) 100 mg PO BID [facility] Stop: 07/16/21 12:59 Last Admin: 07/12/21 08:42 Dose: 100 mg Documented by: Fluvoxamine Maleate (Fluvoxamine Maleate 50 Mg Tablet) 50 mg PO BEDTIME [facility] Last Admin: 07/11/21 20:36 Dose: 50 mg Documented by: Hydroxyzine HCl (Hydroxyzine Hcl 25 Mg Tablet) 25 mg PO Q6H PRN PRN Reason: Anxiety Loperamide HCl (Loperamide Hcl 2 Mg Capsule) 2 mg PO Q4H PRN PRN Reason: Loose Stool Last Admin: 07/11/21 10:00 Dose: 2 mg Documented by: Magnesium Hydroxide (Milk Of Magnesia 30 Ml Oral.Susp) 30 ml PO DAILY PRN PRN Reason: Constipation Mirtazapine (Mirtazapine 7.5 Mg Tablet) 7.5 mg PO BEDTIME [facility] Last Admin: 07/11/21 20:36 Dose: 7.5 mg Documented by: Nicotine (Nicotine 21 Mg Patch.Td24) 21 mg TRANSDERMA DAILY PRN PRN Reason: smoking cessation Sodium Chloride (Sodium Chloride 0.65 % Nasal 44 Ml Sprbtl) 1 spray NOSTRIL-B Q1H PRN PRN Reason: Dryness Allergies Allergies Allergy/AdvReac Type Severity Reaction Status Date / Time trazodone [TRAZODONE] Allergy Severe SHORTNESS Verified 01/14/21 02:23 OF BREATH, GASPING FOR AIR , SOB aspirin [ASPIRIN] Allergy Unknown STOMACH Verified 01/14/21 02:23 UPSET, Nausea, nausa ciprofloxacin [Cipro] Allergy Unknown Rash Verified 01/14/21 02:23 promethazine [Phenergan] Allergy Unknown Hives Verified 01/14/21 02:23 Sulfa (Sulfonamide Allergy Unknown Unknown Verified 01/14/21 02:23 Antibiotics) Assessment & Plan Assessment & Plan (1) MDD (major depressive disorder), recurrent episode, severe: Status: Acute Code(s): F33.2 - Major depressive disorder, recurrent severe without psychotic features (2) PTSD (post-traumatic stress disorder): Status: Acute Code(s): F43.10 - Post-traumatic stress disorder, unspecified (3) Opioid dependence: Status: Acute Code(s): F11.20 - Opioid dependence, uncomplicated (4) Cellulitis: Status: Acute Code(s): L03.90 - Cellulitis, unspecified Plan Pt is a 51 yo female with hx of PtSD, depression, opiate dependence and cocaine abuse, now with cellulites on left leg from IV drug use, recently discharged from last week who presents for depression and SI in face of not taking her prescriptions, including Suboxone, and relapse with cocaine and heroin -SI resolved -pt restarted on meds, subxone 07/11 patient reports that depression has resolved and that her mood is good. She denies any SI. She feels that meds continue to work and thinks she will be ready to discharge early next week plan: cv q15min restart home meds tx cellulitis 07/12/21 - no change to the above I spent minutes with the patient and/or on the patient floor today, greater than?50% of which was spent counseling/coordinating care. Patient educated on: diagnosis and medication risk/benefits Informed Consent: further education needed Reason for contiued inpatient stay Substantial Risk for: rapid decompensation
[2021-07-12] MEDS: Buprenorphine/Naloxone 2/0.5mg FILM 1 FILM SUBLINGUAL (15:02)
[2021-07-12 15:50] VITALS: BP 100/54; PULSE 91; TEMP 36.7
[2021-07-12] MEDS: Mirtazapine 7.5 MG TABLET PO (20:00)
[2021-07-12] MEDS: fluvoxaMINE Maleate 50 MG TABLET PO (20:00)
[2021-07-12] MEDS: chlorproMAZINE HCl 100 MG TABLET PO (20:00)
[2021-07-12] MEDS: clonazePAM 1 MG TABLET PO (20:01)
[2021-07-13 06:00] VITALS: BP 110/70; PULSE 82; TEMP 36.8; O2SAT 98
[2021-07-13] MEDS: cephALEXin 500 MG CAPSULE PO ×4 (09:01→20:49)
[2021-07-13] MEDS: Buprenorphine/Naloxone 8/2 mg FILM 2 FILM SUBLINGUAL (09:01)
[2021-07-13] MEDS: clonazePAM 0.5 MG TABLET PO (09:02)
[2021-07-13] MEDS: Sodium Chloride 0.65 % Nasal 44 ML SPRBTL 1 SPRAY NOSTRIL-B (12:15)
[2021-07-13] MEDS: chlorproMAZINE HCl 25 MG TABLET 50 MG PO (14:58)
[2021-07-13 16:21] VITALS: BP 95/59; PULSE 104
--- NOTE | 2021-07-13 17:21 | HO.PSYCHPN ---
Subjective Subjective Date of Service: 07/13/21 Reason For Visit: Depression,SI Interim History: Kelely has been keeping to herself. She found the nasal spray quite helpful Medication Compliance: Yes Side effects from medications: No Review of Systems Acute medical concerns: No Mental Status Exam Mental Status Exam Narrative: Pt is alert and oriented; behavior is cooperative and calm; patient is not in distress; dressed in casual attire with washed hair and adequate hygiene; mood is described as good and affect congruent; eye contact appropriate; Speech is normal rate, volume and prosody and not pressured; psychomotor retardation present; thought process is organized and goal directed; Thought content is on tx; otherwise pertinent to relevant topics and without any delusional content, paranoid ideations or grandiosity; denies SI/HI. There is no evidence of perceptual disturbance. ?Patients insight and judgment appear intact. Diagnostics Vital Signs (24Hr): Vital Signs - 24 hr 07/13/21 06:00 07/13/21 16:21 Temperature 98.2 F Pulse Rate 82 104 H Blood Pressure 110/70 95/59 L Pulse Oximetry 98 BMI result Body Mass Index 24.6 Labs Results: 07/08/21 22:52 07/08/21 22:52 Imaging Radiology Impressions: ITS Impressions Venous Duplex 07/09/21 00:30 IMPRESSION: No DVT demonstrated in the left lower extremity. A left sided Thompson's cyst is present, similar to prior. Medications Medications Current Medications Acetaminophen (Acetaminophen 325 Mg Tablet) 650 mg PO Q6H PRN PRN Reason: Headache/Pain Mild Scale (1-3) Last Admin: 07/11/21 12:18 Dose: 650 mg Documented by: Al Hydroxide/Mg Hydroxide (Magnesium Hydrox/Alum Hydrox 30 Ml Oral.Susp) 30 ml PO Q6H PRN PRN Reason: Heartburn/Nausea Albuterol Sulfate (Albuterol Sulfate 90 Mcg 8 Gm Inhaler) 2 puff INHALE Q4H PRN PRN Reason: wheezing Buprenorphine/Naloxone (Buprenorphine/Naloxone 8/2 Mg Film) 2 film SUBLINGUAL DAILY [facility] Last Admin: 07/13/21 09:01 Dose: 2 film Documented by: Buprenorphine/Naloxone (Buprenorphine/Naloxone 2/0.5mg Film) 1 film SUBLINGUAL BID PRN PRN Reason: Pain, Moderate (Pain Scale 4-6 Last Admin: 07/12/21 15:02 Dose: 1 film Documented by: Cephalexin HCl (Cephalexin 500 Mg Capsule) 500 mg PO QID [facility] Stop: 07/16/21 12:59 Last Admin: 07/13/21 16:20 Dose: 500 mg Documented by: Chlorpromazine HCl (Chlorpromazine Hcl 100 Mg Tablet) 100 mg PO BEDTIME [facility] Last Admin: 07/12/21 20:00 Dose: 100 mg Documented by: Chlorpromazine HCl (Chlorpromazine Hcl 25 Mg Tablet) 50 mg PO QID PRN PRN Reason: Anxiety Last Admin: 07/13/21 14:58 Dose: 50 mg Documented by: Clonazepam (Clonazepam 0.5 Mg Tablet) 0.5 mg PO BID PRN PRN Reason: anxiety Last Admin: 07/13/21 09:02 Dose: 0.5 mg Documented by: Clonazepam (Clonazepam 1 Mg Tablet) 1 mg PO BEDTIME PRN PRN Reason: Insomnia Last Admin: 07/12/21 20:01 Dose: 1 mg Documented by: Doxycycline Hyclate (Doxycycline Hyclate 100 Mg Tablet) 100 mg PO BID [facility] Stop: 07/16/21 12:59 Last Admin: 07/13/21 09:01 Dose: 100 mg Documented by: Fluvoxamine Maleate (Fluvoxamine Maleate 50 Mg Tablet) 50 mg PO BEDTIME [facility] Last Admin: 07/12/21 20:00 Dose: 50 mg Documented by: Hydroxyzine HCl (Hydroxyzine Hcl 25 Mg Tablet) 25 mg PO Q6H PRN PRN Reason: Anxiety Loperamide HCl (Loperamide Hcl 2 Mg Capsule) 2 mg PO Q4H PRN PRN Reason: Loose Stool Last Admin: 07/11/21 10:00 Dose: 2 mg Documented by: Magnesium Hydroxide (Milk Of Magnesia 30 Ml Oral.Susp) 30 ml PO DAILY PRN PRN Reason: Constipation Mirtazapine (Mirtazapine 7.5 Mg Tablet) 7.5 mg PO BEDTIME [facility] Last Admin: 07/12/21 20:00 Dose: 7.5 mg Documented by: Nicotine (Nicotine 21 Mg Patch.Td24) 21 mg TRANSDERMA DAILY PRN PRN Reason: smoking cessation Sodium Chloride (Sodium Chloride 0.65 % Nasal 44 Ml Sprbtl) 1 spray NOSTRIL-B Q1H PRN PRN Reason: Dryness Last Admin: 07/13/21 12:15 Dose: 1 spray Documented by: Allergies Allergies Allergy/AdvReac Type Severity Reaction Status Date / Time trazodone [TRAZODONE] Allergy Severe SHORTNESS Verified 01/14/21 02:23 OF BREATH, GASPING FOR AIR , SOB aspirin [ASPIRIN] Allergy Unknown STOMACH Verified 01/14/21 02:23 UPSET, Nausea, nausa ciprofloxacin [Cipro] Allergy Unknown Rash Verified 01/14/21 02:23 promethazine [Phenergan] Allergy Unknown Hives Verified 01/14/21 02:23 Sulfa (Sulfonamide Allergy Unknown Unknown Verified 01/14/21 02:23 Antibiotics) Assessment & Plan Assessment & Plan (1) MDD (major depressive disorder), recurrent episode, severe: Status: Acute Code(s): F33.2 - Major depressive disorder, recurrent severe without psychotic features (2) PTSD (post-traumatic stress disorder): Status: Acute Code(s): F43.10 - Post-traumatic stress disorder, unspecified (3) Opioid dependence: Status: Acute Code(s): F11.20 - Opioid dependence, uncomplicated (4) Cellulitis: Status: Acute Code(s): L03.90 - Cellulitis, unspecified Plan Pt is a 51 yo female with hx of PtSD, depression, opiate dependence and cocaine abuse, now with cellulites on left leg from IV drug use, recently discharged from last week who presents for depression and SI in face of not taking her prescriptions, including Suboxone, and relapse with cocaine and heroin -SI resolved -pt restarted on meds, subxone 3 patient reports that depression has resolved and that her mood is good. She denies any SI. She feels that meds continue to work and thinks she will be ready to discharge early next week plan: cv q15min restart home meds tx cellulitis 07/12/21 - no change to the above 07/13/21 - no change I spent minutes with the patient and/or on the patient floor today, greater than?50% of which was spent counseling/coordinating care. Reason for contiued inpatient stay Substantial Risk for: rapid decompensation
[2021-07-13] MEDS: fluvoxaMINE Maleate 50 MG TABLET PO (20:48)
[2021-07-13] MEDS: clonazePAM 1 MG TABLET PO (20:49)
[2021-07-13] MEDS: chlorproMAZINE HCl 100 MG TABLET PO (20:49)
[2021-07-13] MEDS: Mirtazapine 7.5 MG TABLET PO (20:49)
[2021-07-14 06:00] VITALS: BP 108/66; PULSE 87; RESP 18; TEMP 36.6; O2SAT 98
[2021-07-14] MEDS: cephALEXin 500 MG CAPSULE PO ×4 (09:06→20:29)
[2021-07-14] MEDS: Buprenorphine/Naloxone 8/2 mg FILM 2 FILM SUBLINGUAL (09:06)
--- NOTE | 2021-07-14 09:19 | HO.PSYCHPN ---
Subjective Subjective Date of Service: 07/14/21 Reason For Visit: Depression,SI Interim History: Patient said that her mood remains good in that she is bored being on the unit. She says she is looking for to discharging tomorrow. She denies any SI or HI and feels that medications are working well enough. 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 Patient is thankful that the VNA will continue to come to her house saying that this is in the central part of her remaining stable. Mental Status Exam Mental Status Exam Narrative: Pt is alert and oriented; behavior is cooperative and calm; patient is not in distress; dressed in casual attire with good hygiene; mood is described as good and affect congruent; eye contact appropriate; Speech is normal rate, volume and prosody and not pressured; psychomotor retardation present; thought process is organized and goal directed; Thought content is on tx; otherwise pertinent to relevant topics and without any delusional content, paranoid ideations or grandiosity; denies SI/HI. There is no evidence of perceptual disturbance. ?Patients insight and judgment appear intact. Diagnostics Vital Signs (24Hr): Vital Signs - 24 hr 07/13/21 16:21 07/14/21 06:00 Temperature 97.9 F Pulse Rate 104 H 87 Respiratory Rate 18 Blood Pressure 95/59 L 108/66 Pulse Oximetry 98 BMI result Body Mass Index 24.6 Labs Results: 07/08/21 22:52 07/08/21 22:52 Imaging Radiology Impressions: ITS Impressions Venous Duplex 07/09/21 00:30 IMPRESSION: No DVT demonstrated in the left lower extremity. A left sided Thompson's cyst is present, similar to prior. Medications Medications Current Medications Acetaminophen (Acetaminophen 325 Mg Tablet) 650 mg PO Q6H PRN PRN Reason: Headache/Pain Mild Scale (1-3) Last Admin: 07/11/21 12:18 Dose: 650 mg Documented by: Al Hydroxide/Mg Hydroxide (Magnesium Hydrox/Alum Hydrox 30 Ml Oral.Susp) 30 ml PO Q6H PRN PRN Reason: Heartburn/Nausea Albuterol Sulfate (Albuterol Sulfate 90 Mcg 8 Gm Inhaler) 2 puff INHALE Q4H PRN PRN Reason: wheezing Buprenorphine/Naloxone (Buprenorphine/Naloxone 8/2 Mg Film) 2 film SUBLINGUAL DAILY [facility] Last Admin: 07/14/21 09:06 Dose: 2 film Documented by: Buprenorphine/Naloxone (Buprenorphine/Naloxone 2/0.5mg Film) 1 film SUBLINGUAL BID PRN PRN Reason: Pain, Moderate (Pain Scale 4-6 Last Admin: 07/12/21 15:02 Dose: 1 film Documented by: Cephalexin HCl (Cephalexin 500 Mg Capsule) 500 mg PO QID [facility] Stop: 07/16/21 12:59 Last Admin: 07/14/21 09:06 Dose: 500 mg Documented by: Chlorpromazine HCl (Chlorpromazine Hcl 100 Mg Tablet) 100 mg PO BEDTIME [facility] Last Admin: 07/13/21 20:49 Dose: 100 mg Documented by: Chlorpromazine HCl (Chlorpromazine Hcl 25 Mg Tablet) 50 mg PO QID PRN PRN Reason: Anxiety Last Admin: 07/13/21 14:58 Dose: 50 mg Documented by: Clonazepam (Clonazepam 0.5 Mg Tablet) 0.5 mg PO BID PRN PRN Reason: anxiety Last Admin: 07/13/21 09:02 Dose: 0.5 mg Documented by: Clonazepam (Clonazepam 1 Mg Tablet) 1 mg PO BEDTIME PRN PRN Reason: Insomnia Last Admin: 07/13/21 20:49 Dose: 1 mg Documented by: Doxycycline Hyclate (Doxycycline Hyclate 100 Mg Tablet) 100 mg PO BID [facility] Stop: 07/16/21 12:59 Last Admin: 07/14/21 09:06 Dose: 100 mg Documented by: Fluvoxamine Maleate (Fluvoxamine Maleate 50 Mg Tablet) 50 mg PO BEDTIME [facility] Last Admin: 07/13/21 20:48 Dose: 50 mg Documented by: Hydroxyzine HCl (Hydroxyzine Hcl 25 Mg Tablet) 25 mg PO Q6H PRN PRN Reason: Anxiety Loperamide HCl (Loperamide Hcl 2 Mg Capsule) 2 mg PO Q4H PRN PRN Reason: Loose Stool Last Admin: 07/11/21 10:00 Dose: 2 mg Documented by: Magnesium Hydroxide (Milk Of Magnesia 30 Ml Oral.Susp) 30 ml PO DAILY PRN PRN Reason: Constipation Mirtazapine (Mirtazapine 7.5 Mg Tablet) 7.5 mg PO BEDTIME [facility] Last Admin: 07/13/21 20:49 Dose: 7.5 mg Documented by: Nicotine (Nicotine 21 Mg Patch.Td24) 21 mg TRANSDERMA DAILY PRN PRN Reason: smoking cessation Sodium Chloride (Sodium Chloride 0.65 % Nasal 44 Ml Sprbtl) 1 spray NOSTRIL-B Q1H PRN PRN Reason: Dryness Last Admin: 07/13/21 12:15 Dose: 1 spray Documented by: Allergies Allergies Allergy/AdvReac Type Severity Reaction Status Date / Time trazodone [TRAZODONE] Allergy Severe SHORTNESS Verified 01/14/21 02:23 OF BREATH, GASPING FOR AIR , SOB aspirin [ASPIRIN] Allergy Unknown STOMACH Verified 01/14/21 02:23 UPSET, Nausea, nausa ciprofloxacin [Cipro] Allergy Unknown Rash Verified 01/14/21 02:23 promethazine [Phenergan] Allergy Unknown Hives Verified 01/14/21 02:23 Sulfa (Sulfonamide Allergy Unknown Unknown Verified 01/14/21 02:23 Antibiotics) Assessment & Plan Assessment & Plan (1) MDD (major depressive disorder), recurrent episode, severe: Status: Acute Code(s): F33.2 - Major depressive disorder, recurrent severe without psychotic features (2) PTSD (post-traumatic stress disorder): Status: Acute Code(s): F43.10 - Post-traumatic stress disorder, unspecified (3) Opioid dependence: Status: Acute Code(s): F11.20 - Opioid dependence, uncomplicated (4) Cellulitis: Status: Acute Code(s): L03.90 - Cellulitis, unspecified Plan Pt is a 51 yo female with hx of PtSD, depression, opiate dependence and cocaine abuse, now with cellulites on left leg from IV drug use, recently discharged from last week who presents for depression and SI in face of not taking her prescriptions, including Suboxone, and relapse with cocaine and heroin -SI resolved -pt restarted on meds, subxone 07/11 patient reports that depression has resolved and that her mood is good. She denies any SI. She feels that meds continue to work and thinks she will be ready to discharge early next week 07/14 patient remains in good mood, no SI, with good impulse and behavioral control unit and feeling that she is ready for discharge; eating and sleeping well and future oriented. Patient is not in imminent risk for harm to self or others and her request for discharge honored plan: cv q15min restart home meds tx cellulitis 07/12/21 - no change to the above 07/13/21 - no change I spent minutes with the patient and/or on the patient floor today, greater than?50% of which was spent counseling/coordinating care. Patient educated on: medication risk/benefits Reason for contiued inpatient stay Substantial Risk for: stable for discharge
[2021-07-14] MEDS: clonazePAM 0.5 MG TABLET PO (10:43)
[2021-07-14] MEDS: Sodium Chloride 0.65 % Nasal 44 ML SPRBTL 1 SPRAY NOSTRIL-B ×2 (10:43→20:31)
--- NOTE | 2021-07-14 11:24 | HE.PHANOTE ---
Patient own medications are being stored in the main pharmacy: [facility]
[2021-07-14] MEDS: chlorproMAZINE HCl 25 MG TABLET 50 MG PO (18:32)
[2021-07-14] MEDS: clonazePAM 1 MG TABLET PO (20:28)
[2021-07-14] MEDS: chlorproMAZINE HCl 100 MG TABLET PO (20:28)
[2021-07-14] MEDS: Mirtazapine 7.5 MG TABLET PO (20:29)
[2021-07-14] MEDS: fluvoxaMINE Maleate 50 MG TABLET PO (20:29)
[2021-07-15 06:00] VITALS: BP 87/51; PULSE 72; RESP 18; TEMP 37.2; O2SAT 98
[2021-07-15] MEDS: cephALEXin 500 MG CAPSULE PO ×2 (09:10→12:27)
[2021-07-15] MEDS: Buprenorphine/Naloxone 8/2 mg FILM 2 FILM SUBLINGUAL (09:10)
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
[2021-07-15] MEDS: Naloxone HCl Nasal TAKE HOME 4 MG SPRAY NOSTRILALT (11:50)
[2021-07-15] MEDS: chlorproMAZINE HCl 25 MG TABLET 50 MG PO (12:28)
== END 2021-07-15 13:08 | disposition home or self-care (01) | DRG 751 ==
LOC: HO.ED 07-09 05:29 → HO.PM5 07-09 21:04
PROVIDERS: Physician Assistant; Registered Nurse; Admitting Provider Psychiatry & Neurology Psychiatry; Emergency Provider Internal Medicine; Visit Provider Psychiatry & Neurology Psychiatry
DX: F33.2 Major depressive disorder, recurrent severe without psychotic features (principal); R45.851 Suicidal ideations; L03.116 Cellulitis of left lower limb; F11.20 Opioid dependence, uncomplicated; F14.10 Cocaine abuse, uncomplicated; F17.210 Nicotine dependence, cigarettes, uncomplicated; F43.10 Post-traumatic stress disorder, unspecified; Z20.822 Contact with and (suspected) exposure to COVID-19; Z71.6 Tobacco abuse counseling; Z88.2 Allergy status to sulfonamides; Z88.5 Allergy status to narcotic agent; Z79.899 Other long term (current) drug therapy
CPT/HCPCS: 36415; 80053; 80307; 81001; 82077; 82607; 82746; 83735; 84439; 84443; 85025; 87635; 93005; 93971; 99285

== ENCOUNTER 2022-02-09 16:08 | Inpatient (IN) | payer OTHER, SELFPAY ==
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
[2022-02-09 18:00] VITALS: BP 92/54; PULSE 72; TEMP 37; O2SAT 94
--- NOTE | 2022-02-09 18:30 | PC.ADMIT ---
pt is a 52 year old female who presented to [facility] ED with SI, withdrawal, and IV cellutiits. pt has a PMH of opioid use disorder, cocaine use disorder, cellutitis, mild asthma. during admission, pt looked tired, but answered questions. pt reported limited pain in her wrists due to celluitis. patient reports no symptoms of withdrawal during admission. pt said nothing has been helping her anxiety recently and wants her meds changed.
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
[2022-02-09] MEDS: clonazePAM 1 MG TABLET PO (20:44)
[2022-02-09] MEDS: QUEtiapine Fumarate 100 MG TABLET PO (20:44)
[2022-02-09] MEDS: busPIRone HCl 5 MG TABLET 15 MG PO (20:44)
[2022-02-10 06:00] VITALS: BP 85/50; PULSE 83; RESP 16; TEMP 36.8; O2SAT 97
[2022-02-10] MEDS: clonazePAM 0.5 MG TABLET PO ×2 (08:10→15:07)
[2022-02-10] MEDS: busPIRone HCl 5 MG TABLET 15 MG PO ×2 (08:10→14:48)
--- NOTE | 2022-02-10 08:29 | HE.PHANOTE ---
[Methadone verification] Received methadone verification form from [facility] for 80mg daily 02/10/22
[2022-02-10] MEDS: methADONE HCl 20 MG/2 ML ORAL.CONC 80 MG PO (08:38)
--- NOTE | 2022-02-10 09:17 | P.PNPSI_ITS ---
Subjective Subjective Date of Service: 02/10/22 Reason For Visit: Opioid d/o, stimulant use d/o, PTSD Interim History: Patient reports that she is depressed and anxious. She is vague about the past 5-6 months since her last admission but says that she has been using on and off since she was discharged. Initially she said Suboxone just in work for her, saying that she still had pain with it; then she said there was something wrong with the appointment for Suboxone and so she just bought from the street but ultimately said it just was not helping her. Patient shared numerous other system failures regarding missed therapy appointment. Regarding medication, Patient said that the medications were initially helping but then they just stopped helping so she stopped taking them (pt says she's been off most meds for at least 3 months). [facility] she said that anxiety just kept getting worse and worse and that this past month it has been so bad that she has and been able to leave her house and is even beginning paranoid about noises and feeling excessively fearful.[facility] shared that it seems patient felt the medications were helpful and read aloud the notes from her last admission in July 2021 where she reported feeling much better, in a good mood without any SI, anxiety down, sleeping better. [facility] also discussed with patient how no medication can overcome the dysregulating effect of ongoing substance abuse and how after she stopped taking medications her anxiety and mood just seemed to get worse. Patient however remains focus on the fact that the medications just stopped working. She says that they stop working and that is what led to her relapse. [facility] reviewed list of medication trials. Patient does not want to try anything she has tried before. She is willing to try Risperdal after appeals writer went over the risks/side effects of this medication. Patient said that methadone has been helpful to reduce cravings but she still feels like it needs to be higher. Mental Status Exam Mental Status Exam Narrative: Pt is alert and oriented; behavior is marginally cooperative; patient is not in distress; dressed in casual attire with adequate hygiene; mood is described as depressed...anxious and affect congruent, downcast, poor eye contact; Speech is normal rate, volume and prosody and not pressured; psychomotor agitation present; thought process is organized and goal directed; Thought content is on how medications just stop working; otherwise pertinent to relevant topics and without any delusional content, paranoid ideations or grandiosity; intermittent SI; denies HI. There is no evidence of perceptual disturbance; denies AVH. Patients insight and judgment are impaired, but adequate Diagnostics Vital Signs (24Hr): Vital Signs - 24 hr 02/09/22 18:00 Temperature 98.6 F Pulse Rate 72 Blood Pressure 92/54 L Pulse Oximetry 94 Oxygen Delivery Method Room Air Medications Medications Current Medications Acetaminophen (Acetaminophen 325 Mg Tablet) 650 mg PO Q6H PRN PRN Reason: Headache/Pain Mild Scale (1-3) Al Hydroxide/Mg Hydroxide (Magnesium Hydrox/Alum Hydrox 30 Ml Oral.Susp) 30 ml PO Q6H PRN PRN Reason: Heartburn/Nausea Buspirone HCl (Buspirone Hcl 5 Mg Tablet) 15 mg PO TID [facility] Last Admin: 02/10/22 08:10 Dose: 15 mg Clonazepam (Clonazepam 1 Mg Tablet) 1 mg PO BEDTIME [facility] Last Admin: 02/09/22 20:44 Dose: 1 mg Clonazepam (Clonazepam 0.5 Mg Tablet) 0.5 mg PO BID@0900,1600 [facility] Last Admin: 02/10/22 08:10 Dose: 0.5 mg Doxycycline Hyclate (Doxycycline Hyclate 100 Mg Tablet) 100 mg PO Q12H [facility] Last Admin: 02/10/22 08:10 Dose: 100 mg Hydroxyzine HCl (Hydroxyzine Hcl 25 Mg Tablet) 25 mg PO Q6H PRN PRN Reason: Anxiety Magnesium Hydroxide (Milk Of Magnesia 30 Ml Oral.Susp) 30 ml PO DAILY PRN PRN Reason: Constipation Methadone HCl (Methadone Hcl 20 Mg/2 Ml Oral.Conc) 80 mg PO DAILY [facility] Last Admin: 02/10/22 08:38 Dose: 80 mg Quetiapine Fumarate (Quetiapine Fumarate 100 Mg Tablet) 100 mg PO BEDTIME PRN PRN Reason: insomnia Last Admin: 02/09/22 20:44 Dose: 100 mg Allergies Allergies Allergy/AdvReac Type Severity Reaction Status Date / Time trazodone [TRAZODONE] Allergy Severe SHORTNESS Verified 01/14/21 02:23 OF BREATH, GASPING FOR AIR , SOB aspirin [ASPIRIN] Allergy Unknown STOMACH Verified 01/14/21 02:23 UPSET, Nausea, nausa ciprofloxacin [Cipro] Allergy Unknown Rash Verified 09/07/21 02:23 promethazine [Phenergan] Allergy Unknown Hives Verified 01/14/21 02:23 Sulfa (Sulfonamide Allergy Unknown Unknown Verified 01/14/21 02:23 Antibiotics) Assessment & Plan Assessment & Plan (1) MDD (major depressive disorder), recurrent episode, severe: Status: Acute Code(s): F33.2 - Major depressive disorder, recurrent severe without psychotic features (2) PTSD (post-traumatic stress disorder): Status: Acute Code(s): F43.10 - Post-traumatic stress disorder, unspecified (3) Opioid dependence: Status: Acute Code(s): F11.20 - Opioid dependence, uncomplicated (4) Cocaine use disorder, moderate, dependence: Status: Acute Code(s): F14.20 - Cocaine dependence, uncomplicated Plan Kelley is a 52 y.o. woman who carries a dx of opioid use disorder, cocaine use disorder, PTSD, social anxiety, and MDD recurrent. She presented to [facility] ED on 02/07/2022 due to worsening depression, anxiety, and SI with a plan to run into traffic. Precipitating factors include that pt has been using IV heroin and cocaine, chronic relapsing, has not had a period of sustained sobriety in several years. She is non-adherent with psych meds, only taking klonopin and seroquel for sleep. Says her landlord is trying to evict her. Utox positive for opiates, methadone, fentanyl, benzos, and cocaine. Hx of several [facility] admissions. 02/10 patient depressed and anxious; denies active SI but has passive wish. Patient minimizing role that her relapse and chronic substance abuse with cocaine and heroin has in worsening her anxiety/depressive symptoms, saying that the medications were working before, but then just stopped working; unable to acknowledge that after going off the medications symptoms simply got worse. [facility] encouraged patient to retry fluvoxamine/Remeron which she reported was helpful for a time period, however patient does not agree. [facility] discussed options and Patient agrees to trying Risperdal which could help some emotional lability (reviewed risks/side effects of this medication which patient understood, asked questions about and agreed to continue with). PLAN: 1. depression/anxiety/ptsd START Risperdal 0.5mg BID (may help with emotional lability -has only been taking klonopin 1 mg HS and 0.5 mg BID -seroquel 100-200 mg HS PRN for insomnia. -buspar 15mg TID was started on admission (Lamictal, Latuda, Vraylar are considerations) 2. indurated area on the hand (left?) -will monitor Dr. Castellanos: She has an indurated area on the hand...if... enlarging over the next few days...recommend gen Surg to see if maybe an I&D would be of benefit. Doxycycline Hyclate 100 mg PO Q12H [facility] x8 doses 3. opioid dependence methadone 80 mg Q15 min safety checks, CV Monitor response to medications. Monitor for safety in the milieu. Discharge on stabilization. Patient seen. Chart reviewed. Discussed with team. Obtain collateral contact info?as needed med trials: Fluvoxamine: says helpful at first and then stopped working Remeron: says helpful at first and then stopped working Zoloft: Helpful however increased liver enzymes so discontinued Lexapro 10 mg Lamictal: only Sub-therapeutic dose Abilify 5 mg Mirtazapine 15 mg Oxcarbamazepine 600 Wellbutrin:? Worsened anxiety Patient reports history of Depakote and lithium which she said were unhelpful prn seroquel prn thorazine prazosin/clonidine for nightmares: not helpful I spent minutes with the patient and/or on the patient floor today, greater than?50% of which was spent counseling/coordinating care. Patient educated on: diagnosis, medication risk/benefits, substance abuse and therapeutic strategies Informed Consent: further education needed Reason for contiued inpatient stay Substantial Risk for: rapid decompensation
--- NOTE | 2022-02-10 09:44 | PC.NURSE ---
Methadone Verification This morning Kelley reported that she had been taking methadone 80 mg daily. This was verified at her clinic. The form was filled out, faxed, and filed. Pharmacy received the verification. Kelley was continued on her outpatient dose this morning.
--- NOTE | 2022-02-10 11:26 | HO.PM.IMCN ---
History of Present Illness Data of Consult Service Date: 02/10/22 Primary Care Provider: Aretha Macedo MD HPI Reason for consult: routine medical H&P This is a 52 yo F with a PMH as outlined below who is admitted to the inpatient psychiatric unit. Medical consult has been requested for routine medical H&P. Pt seen and examined in the exam room. Window Glass Cutter Off present. Pt denies any medical complaints, particularly those related to low BP. Her BP this AM was 85/50 -- which is likely innacurate as the patient is abmulating without any issues. Chart review reveals that her BP is usually on the lower side. The pt endorses intravenous opiate/cocaine use. She reports last use prior to presentation as [facility] (from where she was transferred). Review of Systems Review of Systems: negative except HPI [facility] Medical History Adjustment disorder with mixed disturbance of emotions and conduct in remission Asthma Cocaine use disorder, moderate, dependence COPD (chronic obstructive pulmonary disease) Major depression, recurrent MDD (major depressive disorder), recurrent episode, severe Opioid dependence Post traumatic stress disorder PTSD (post-traumatic stress disorder) Pertinent family history: Denies Social History Household Members: None Household Members Other:: no Housing: Apartment Do you presently have visiting nurse or other home services: Yes 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: never Patient Tobacco Use Status: Current everyday Tobacco user Tobacco use type: Cigarette Cigarette Packs Per Day: 0.5 Cigarettes Per Day: 10.0 Years Smoked: whole life e-Cigarette/Vaping Use: Currently Using Patient Interested in Nicotine Replacement: No Patient Given Instructions on How to Stop Smoking: Yes Date Education Initiated: 02/09/22 Second Hand Smoke Exposure: No Use of substances other than those prescribed or required for medical reasons: Yes Substance Use Type: Crack/Cocaine and Heroin Substance Use Frequency: Occasionally Last Used Substance: Just Prior to Admission Currently Displaying Signs/Symptoms of Drug Intoxication Withdrawal: No Any prior treatment program specific to substance use: Yes Have you been hit, kicked, punched, or otherwise hurt by someone within the past year? If so, by whom?: No Do you feel safe in your current relationship?: Yes Is there a partner from a previous relationship who is making you feel unsafe now?: No Are you made to feel afraid or neglected: No Advance Directives: Yes Advance Directives on File: Yes Advance Directives Date on File: 09/20/20 Do you have thoughts of harming others: None Do you have a plan to hurt others: No Plan Recently lost weight without trying: No How much weight loss: 2-13 pounds Eating poorly because of decreased appetite: Yes Nutrition screen score: 2 Nutrition Risks: No Nutritional Risk Patient : No : No Poor oral hygiene: No service: No Current occupational status: disabled Sexual orientation: Straight/Heterosexual Meds Allergies Allergy/AdvReac Type Severity Reaction Status Date / Time trazodone [TRAZODONE] Allergy Severe SHORTNESS Verified 01/14/21 02:23 OF BREATH, GASPING FOR AIR , SOB aspirin [ASPIRIN] Allergy Unknown STOMACH Verified 01/14/21 02:23 UPSET, Nausea, nausa ciprofloxacin [Cipro] Allergy Unknown Rash Verified 01/14/21 02:23 promethazine [Phenergan] Allergy Unknown Hives Verified 01/14/21 02:23 Sulfa (Sulfonamide Allergy Unknown Unknown Verified 01/14/21 02:23 Antibiotics) Active Medications: Current Medications Acetaminophen (Acetaminophen 325 Mg Tablet) 650 mg PO Q6H PRN PRN Reason: Headache/Pain Mild Scale (1-3) Al Hydroxide/Mg Hydroxide (Magnesium Hydrox/Alum Hydrox 30 Ml Oral.Susp) 30 ml PO Q6H PRN PRN Reason: Heartburn/Nausea Buspirone HCl (Buspirone Hcl 5 Mg Tablet) 15 mg PO TID [facility] Last Admin: 02/10/22 08:10 Dose: 15 mg Clonazepam (Clonazepam 1 Mg Tablet) 1 mg PO BEDTIME [facility] Last Admin: 02/09/22 20:44 Dose: 1 mg Clonazepam (Clonazepam 0.5 Mg Tablet) 0.5 mg PO BID@0900,1600 [facility] Last Admin: 02/10/22 08:10 Dose: 0.5 mg Doxycycline Hyclate (Doxycycline Hyclate 100 Mg Tablet) 100 mg PO Q12H [facility] Last Admin: 02/10/22 08:10 Dose: 100 mg Hydroxyzine HCl (Hydroxyzine Hcl 25 Mg Tablet) 25 mg PO Q6H PRN PRN Reason: Anxiety Magnesium Hydroxide (Milk Of Magnesia 30 Ml Oral.Susp) 30 ml PO DAILY PRN PRN Reason: Constipation Methadone HCl (Methadone Hcl 20 Mg/2 Ml Oral.Conc) 80 mg PO DAILY [facility] Last Admin: 02/10/22 08:38 Dose: 80 mg Quetiapine Fumarate (Quetiapine Fumarate 100 Mg Tablet) 100 mg PO BEDTIME PRN PRN Reason: insomnia Last Admin: 02/09/22 20:44 Dose: 100 mg Home Medications Medication Instructions Recorded Confirmed Last Taken Type albuterol sulfate 90 mcg/actuation 2 puff inhalation Q4H PRN wheezing 07/09/21 07/09/21 Unknown History aerosol inhaler (ProAir HFA) buprenorphine 8 mg-naloxone 2 mg 2 strip sublingual DAILY 07/09/21 07/09/21 Unknown History sublingual film (Suboxone) fluvoxamine 50 mg tablet 1 tab PO BEDTIME 07/09/21 07/09/21 Unknown History mirtazapine 7.5 mg tablet 1 tab PO BEDTIME 07/09/21 07/09/21 Unknown History Physical Exam Vital Signs and Narrative: Vital Signs: Last Vital Signs Temp 98.3 F 02/10/22 06:00 Pulse 83 02/10/22 06:00 Resp 16 02/10/22 06:00 BP 85/50 L 02/10/22 06:00 Pulse Ox 97 02/10/22 06:00 O2 Del Method 02/10/22 06:00 Const: Other: General - no acute distress, appears comfortable Cardiovascular - regular rate and rhythm, S1-S2 Lungs - normal respiratory effort, clear to auscultation bilaterally, no wheezing Abdomen - soft, nontender, no rebound or guarding Extremities - no edema bilaterally; rull ROM b/l ue incluing hand/fingers Neuro - awake and alert, no focal deficits; cn 2-12 intact b/l Skin - indurated area on forearm, no fluctuation appreciated -- she reports it is improving Assessment and Plan (1) Routine medical exam: Status: Acute Plan 52 yo F with a history of active IVDU, admitted to for psychiatric treatment. 1. Cellulitis / possible abcess indurated area -- for which is she is on doxycycline; endorses that it is improving; would recommend surgical evaluation if not improving or worsens continue doxy -- total 10 days 2. Chronic Hypotension BP this AM in the 80s, but it appears to be a false reading as she is ambulating without any signs of symptoms of hypotension recommend repeat BP 3. Acute intravenous opiate/cocaine use cessation has been strongly encouraged Will sign off at this time. Please reconsult with any questions.
[2022-02-10] MEDS: risperiDONE 0.5 MG TABLET PO (14:48)
[2022-02-11 06:00] VITALS: BP 85/52; PULSE 57; RESP 14; TEMP 36.6; O2SAT 96
[2022-02-11] MEDS: methADONE HCl 20 MG/2 ML ORAL.CONC 80 MG PO (08:41)
[2022-02-11] MEDS: clonazePAM 0.5 MG TABLET PO ×2 (08:42→16:03)
[2022-02-11] MEDS: risperiDONE 0.5 MG TABLET PO ×2 (08:42→14:12)
[2022-02-11] MEDS: busPIRone HCl 5 MG TABLET 15 MG PO ×3 (08:42→21:50)
--- NOTE | 2022-02-11 10:15 | P.PNPSI_ITS ---
Subjective Subjective Date of Service: 02/11/22 Reason For Visit: Opioid d/o, stimulant use d/o, PTSD Interim History: Patient depressed but no SI. Overall slept well last night. With more discussion, patient agrees that perhaps the medications she will was on were at least partially helpful. She also agrees that her anxiety got significantly worse after she had fully discontinue taking these medications. She agrees to restart fluvoxamine. No side effects from Risperdal and agrees to continue taking. Patient shared about cycle social stressors that are troublesome for her, including potentially of action from her home. She is working with social work to try and navigate through this. Discussed more about substance abuse and how it was probably once a week until this last month when it got much worse. She agrees however that even if only once a week this amount can still be significantly disrupting to her mood making it seem that medications are not that helpful. Mental Status Exam Mental Status Exam Narrative: Pt is alert and oriented; behavior is cooperative; patient is not in distress; dressed in casual attire, well groomed; mood is described as depressed...a nxious and affect congruent, downcast, limited eye contact; Speech is normal rate, volume and prosody and not pressured; psychomotor retardation present; thought process is distracted with some latency, but is overall organized and goal directed; Thought content is on dealing with anxiety; otherwise pertinent to relevant topics and without any delusional content, paranoid ideations or grandiosity; no SI (though can intermittently come and go); denies HI. There is no evidence of perceptual disturbance; denies AVH. Patients insight and judgment are impaired, but improved and adequate Diagnostics Vital Signs (24Hr): Vital Signs - 24 hr 02/11/22 06:00 Temperature 97.9 F Pulse Rate 57 Respiratory Rate 14 Blood Pressure 85/52 L Pulse Oximetry 96 Oxygen Delivery Method Room Air Medications Medications Current Medications Acetaminophen (Acetaminophen 325 Mg Tablet) 650 mg PO Q6H PRN PRN Reason: Headache/Pain Mild Scale (1-3) Al Hydroxide/Mg Hydroxide (Magnesium Hydrox/Alum Hydrox 30 Ml Oral.Susp) 30 ml PO Q6H PRN PRN Reason: Heartburn/Nausea Buspirone HCl (Buspirone Hcl 5 Mg Tablet) 15 mg PO TID [facility] Last Admin: 02/11/22 08:42 Dose: 15 mg Clonazepam (Clonazepam 1 Mg Tablet) 1 mg PO BEDTIME [facility] Last Admin: 02/11/22 04:16 Dose: Not Given Clonazepam (Clonazepam 0.5 Mg Tablet) 0.5 mg PO BID@0900,1600 [facility] Last Admin: 02/11/22 08:42 Dose: 0.5 mg Doxycycline Hyclate (Doxycycline Hyclate 100 Mg Tablet) 100 mg PO Q12H [facility] Last Admin: 02/11/22 08:42 Dose: 100 mg Hydroxyzine HCl (Hydroxyzine Hcl 25 Mg Tablet) 25 mg PO Q6H PRN PRN Reason: Anxiety Magnesium Hydroxide (Milk Of Magnesia 30 Ml Oral.Susp) 30 ml PO DAILY PRN PRN Reason: Constipation Methadone HCl (Methadone Hcl 20 Mg/2 Ml Oral.Conc) 80 mg PO DAILY [facility] Last Admin: 02/11/22 08:41 Dose: 80 mg Quetiapine Fumarate (Quetiapine Fumarate 100 Mg Tablet) 100 mg PO BEDTIME PRN PRN Reason: insomnia Last Admin: 02/09/22 20:44 Dose: 100 mg Risperidone (Risperidone 0.5 Mg Tablet) 0.5 mg PO BID@0900,1500 [facility] Last Admin: 02/11/22 08:42 Dose: 0.5 mg Allergies Allergies Allergy/AdvReac Type Severity Reaction Status Date / Time trazodone [TRAZODONE] Allergy Severe SHORTNESS Verified 01/14/21 02:23 OF BREATH, GASPING FOR AIR , SOB aspirin [ASPIRIN] Allergy Unknown STOMACH Verified 01/14/21 02:23 UPSET, Nausea, nausa ciprofloxacin [Cipro] Allergy Unknown Rash Verified 01/14/21 02:23 promethazine [Phenergan] Allergy Unknown Hives Verified 01/14/21 02:23 Sulfa (Sulfonamide Allergy Unknown Unknown Verified 01/14/21 02:23 Antibiotics) Assessment & Plan Assessment & Plan (1) MDD (major depressive disorder), recurrent episode, severe: Status: Acute Code(s): F33.2 - Major depressive disorder, recurrent severe without psychotic features (2) PTSD (post-traumatic stress disorder): Status: Acute Code(s): F43.10 - Post-traumatic stress disorder, unspecified (3) Opioid dependence: Status: Acute Code(s): F11.20 - Opioid dependence, uncomplicated (4) Cocaine use disorder, moderate, dependence: Status: Acute Code(s): F14.20 - Cocaine dependence, uncomplicated Plan Kelley is a 52 y.o. woman who carries a dx of opioid use disorder, cocaine use disorder, PTSD, social anxiety, and MDD recurrent. She presented to [facility] ED on 02/07/2022 due to worsening depression, anxiety, and SI with a plan to run into traffic. Precipitating factors include that pt has been using IV heroin and cocaine, chronic relapsing, has not had a period of sustained sobriety in several years. She is non-adherent with psych meds, only taking klonopin and seroquel for sleep. Says her landlord is trying to evict her. Utox positive for opiates, methadone, fentanyl, benzos, and cocaine. Hx of several [facility] admissions. 02/10 patient depressed and anxious; denies active SI but has passive wish. Patient minimizing role that her relapse and chronic substance abuse with cocaine and heroin has in worsening her anxiety/depressive symptoms, saying that the medications were working before, but then just stopped working; unable to acknowledge that after going off the medications symptoms simply got worse. Black Topper encouraged patient to retry fluvoxamine/Remeron which she reported was helpful for a time period, however patient does not agree. Black Topper discussed options and Patient agrees to trying Risperdal which could help some emotional lability (reviewed risks/side effects of this medication which patient understood, asked questions about and agreed to continue with). 02/11, patient depressed but no SI. More able to engage and agrees that perhaps medications were at least partially helpful in the past and agrees to get back on fluvoxamine. Will stay on Risperdal for now to see if he can help. Will hold off Remeron since patient is sleeping. Though In the past, she has had Mood congruent psychotic symptoms, none are present thus far. -hypotensive but patient denies symptoms PLAN: 1. depression/anxiety/ptsd Continue Risperdal 0.5mg BID (may help with emotional lability -has only been taking klonopin 1 mg HS and 0.5 mg BID -seroquel 100-200 mg HS PRN for insomnia. -buspar 15mg TID was started on admission (Lamictal, Latuda, Vraylar are considerations) START Fluvoxamine 50mg qhs (patient has been on this before which was helpful; 2. indurated area on the hand (left?) -will monitor; no changes Dr. Castellanos: She has an indurated area on the hand...if... enlarging over the next few days...recommend gen Surg to see if maybe an I&D would be of benefit. Doxycycline Hyclate 100 mg PO Q12H [facility] x8 doses 3. opioid dependence methadone 80 mg Q15 min safety checks, CV Monitor response to medications. Monitor for safety in the milieu. Discharge on stabilization. Patient seen. Chart reviewed. Discussed with team. Obtain collateral contact info?as needed med trials: Fluvoxamine: says helpful at first and then stopped working Remeron: says helpful at first and then stopped working Zoloft: Helpful however increased liver enzymes so discontinued Lexapro 10 mg Lamictal: only Sub-therapeutic dose Abilify 5 mg Mirtazapine 15 mg Oxcarbamazepine 600 Wellbutrin:? Worsened anxiety Patient reports history of Depakote and lithium which she said were unhelpful prn seroquel prn thorazine prazosin/clonidine for nightmares: not helpful I spent minutes with the patient and/or on the patient floor today, greater than?50% of which was spent counseling/coordinating care. Patient educated on: diagnosis, medication risk/benefits, substance abuse and therapeutic strategies Informed Consent: understands Reason for contiued inpatient stay Substantial Risk for: rapid decompensation
[2022-02-11] MEDS: hydrOXYzine HCL 50 MG TABLET PO (14:12)
[2022-02-11 16:37] VITALS: BP 78/51; PULSE 53; RESP 14; TEMP 36.4; O2SAT 94
[2022-02-11] MEDS: fluvoxaMINE Maleate 50 MG TABLET PO (21:50)
[2022-02-11] MEDS: clonazePAM 1 MG TABLET PO (21:50)
[2022-02-12 06:00] VITALS: BP 97/49; PULSE 59; RESP 16; TEMP 37.3; O2SAT 96
[2022-02-12] MEDS: methADONE HCl 20 MG/2 ML ORAL.CONC 80 MG PO (08:11)
[2022-02-12] MEDS: clonazePAM 0.5 MG TABLET PO ×2 (08:12→16:04)
[2022-02-12] MEDS: risperiDONE 0.5 MG TABLET PO ×2 (08:12→14:06)
[2022-02-12] MEDS: busPIRone HCl 5 MG TABLET 15 MG PO ×3 (08:12→20:30)
--- NOTE | 2022-02-12 08:55 | P.PNPSI_ITS ---
Subjective Subjective Date of Service: 02/12/22 Reason For Visit: Opioid d/o, stimulant use d/o, PTSD Interim History: Patient reports she slept well enough last night. No medication side effects or complaints. Patient is hypotensive but denies any symptoms. She denies any AVH or SI or HI. Patient said she is trying to just block out her worries for today by distracting herself to see if that helps Examined abscess/induration left wrist which looks to be resolving and has decreased in size and no erythemia Mental Status Exam Mental Status Exam Narrative: Pt is alert and oriented; behavior is cooperative; patient is not in distress; dressed in casual attire, well groomed; mood is described as depressed...anxious and affect congruent, downcast, limited eye contact; Speech is normal rate, volume and prosody and not pressured; psychomotor retardation present; thought process is distracted with some latency, but is overall organized and goal directed; Thought content is on dealing with anxiety; otherwise pertinent to relevant topics and without any delusional content, paranoid ideations or grandiosity; no SI (though can intermittently come and go); denies HI. There is no evidence of perceptual disturbance; denies AVH. Patients insight and judgment are impaired, but improved and adequate Diagnostics Vital Signs (24Hr): Vital Signs - 24 hr 02/11/22 16:37 Temperature 97.6 F Pulse Rate 53 Respiratory Rate 14 Blood Pressure 78/51 L Pulse Oximetry 94 Oxygen Delivery Method Room Air Medications Medications Current Medications Acetaminophen (Acetaminophen 325 Mg Tablet) 650 mg PO Q6H PRN PRN Reason: Headache/Pain Mild Scale (1-3) Al Hydroxide/Mg Hydroxide (Magnesium Hydrox/Alum Hydrox 30 Ml Oral.Susp) 30 ml PO Q6H PRN PRN Reason: Heartburn/Nausea Buspirone HCl (Buspirone Hcl 5 Mg Tablet) 15 mg PO TID [facility] Last Admin: 02/12/22 08:12 Dose: 15 mg Clonazepam (Clonazepam 1 Mg Tablet) 1 mg PO BEDTIME [facility] Last Admin: 02/11/22 21:50 Dose: 1 mg Clonazepam (Clonazepam 0.5 Mg Tablet) 0.5 mg PO BID@0900,1600 [facility] Last Admin: 02/12/22 08:12 Dose: 0.5 mg Doxycycline Hyclate (Doxycycline Hyclate 100 Mg Tablet) 100 mg PO Q12H [facility] Last Admin: 02/12/22 08:12 Dose: 100 mg Fluvoxamine Maleate (Fluvoxamine Maleate 50 Mg Tablet) 50 mg PO BEDTIME [facility] Last Admin: 02/11/22 21:50 Dose: 50 mg Hydroxyzine HCl (Hydroxyzine Hcl 50 Mg Tablet) 50 mg PO Q6H PRN PRN Reason: Anxiety Last Admin: 02/11/22 14:12 Dose: 50 mg Magnesium Hydroxide (Milk Of Magnesia 30 Ml Oral.Susp) 30 ml PO DAILY PRN PRN Reason: Constipation Methadone HCl (Methadone Hcl 20 Mg/2 Ml Oral.Conc) 80 mg PO DAILY [facility] Last Admin: 02/12/22 08:11 Dose: 80 mg Quetiapine Fumarate (Quetiapine Fumarate 100 Mg Tablet) 100 mg PO BEDTIME PRN PRN Reason: insomnia Last Admin: 02/09/22 20:44 Dose: 100 mg Risperidone (Risperidone 0.5 Mg Tablet) 0.5 mg PO BID@0900,1500 [facility] Last Admin: 02/12/22 08:12 Dose: 0.5 mg Allergies Allergies Allergy/AdvReac Type Severity Reaction Status Date / Time trazodone [TRAZODONE] Allergy Severe SHORTNESS Verified 01/14/21 02:23 OF BREATH, GASPING FOR AIR , SOB aspirin [ASPIRIN] Allergy Unknown STOMACH Verified 01/14/21 02:23 UPSET, Nausea, nausa ciprofloxacin [Cipro] Allergy Unknown Rash Verified 01/14/21 02:23 promethazine [Phenergan] Allergy Unknown Hives Verified 01/14/21 02:23 Sulfa (Sulfonamide Allergy Unknown Unknown Verified 01/14/21 02:23 Antibiotics) Assessment & Plan Assessment & Plan (1) MDD (major depressive disorder), recurrent episode, severe: Status: Acute Code(s): F33.2 - Major depressive disorder, recurrent severe without psychotic features (2) PTSD (post-traumatic stress disorder): Status: Acute Code(s): F43.10 - Post-traumatic stress disorder, unspecified (3) Opioid dependence: Status: Acute Code(s): F11.20 - Opioid dependence, uncomplicated (4) Cocaine use disorder, moderate, dependence: Status: Acute Code(s): F14.20 - Cocaine dependence, uncomplicated Plan Kelley is a 52 y.o. woman who carries a dx of opioid use disorder, cocaine use disorder, PTSD, social anxiety, and MDD recurrent. She presented to [facility] ED on 02/07/2022 due to worsening depression, anxiety, and SI with a plan to run into traffic. Precipitating factors include that pt has been using IV heroin and cocaine, chronic relapsing, has not had a period of sustained sobriety in several years. She is non-adherent with psych meds, only taking klonopin and seroquel for sleep. Says her landlord is trying to evict her. Utox positive for opiates, methadone, fentanyl, benzos, and cocaine. Hx of several [facility] admissions. 02/10 patient depressed and anxious; denies active SI but has passive wish. Patient minimizing role that her relapse and chronic substance abuse with cocaine and heroin has in worsening her anxiety/depressive symptoms, saying that the medications were working before, but then just stopped working; unable to a cknowledge that after going off the medications symptoms simply got worse. Fur Finisher Tailor encouraged patient to retry fluvoxamine/Remeron which she reported was helpful for a time period, however patient does not agree. Fur Finisher Tailor discussed options and Patient agrees to trying Risperdal which could help some emotional lability (reviewed risks/side effects of this medication which patient understood, asked questions about and agreed to continue with). 02/11, patient depressed but no SI. More able to engage and agrees that perhaps medications were at least partially helpful in the past and agrees to get back on fluvoxamine. Will stay on Risperdal for now to see if he can help. Will hold off Remeron since patient is sleeping. Though In the past, she has had Mood congruent psychotic symptoms, none are present thus far. -hypotensive but patient denies symptoms PLAN: 1. depression/anxiety/ptsd Continue Risperdal 0.5mg BID (may help with emotional lability -has only been taking klonopin 1 mg HS and 0.5 mg BID -seroquel 100-200 mg HS PRN for insomnia. -buspar 15mg TID was started on admission (Lamictal, Latuda, Vraylar are considerations) Continue Fluvoxamine 50mg qhs (patient has been on this before which was helpful; 2. indurated area on the wrist (left) -will monitor; no changes 10/6 Examined abscess/induration left wrist which looks to be resolving and has decreased in size and no erythemia Dr. Castellanos: She has an indurated area on the hand...if... enlarging over the next few days...recommend gen Surg to see if maybe an I&D would be of benefit. Doxycycline Hyclate 100 mg PO Q12H [facility] x8 doses 3. opioid dependence methadone 80 mg Q15 min safety checks, CV Monitor response to medications. Monitor for safety in the milieu. Discharge on stabilization. Patient seen. Chart reviewed. Discussed with team. Obtain collateral contact info?as needed med trials: Fluvoxamine: says helpful at first and then stopped working Remeron: says helpful at first and then stopped working Zoloft: Helpful however increased liver enzymes so discontinued Lexapro 10 mg Lamictal: only Sub-therapeutic dose Abilify 5 mg Mirtazapine 15 mg Oxcarbamazepine 600 Wellbutrin:? Worsened anxiety Patient reports history of Depakote and lithium which she said were unhelpful prn seroquel prn thorazine prazosin/clonidine for nightmares: not helpful I spent minutes with the patient and/or on the patient floor today, greater than?50% of which was spent counseling/coordinating care. Patient educated on: diagnosis and medication risk/benefits Informed Consent: understands Reason for contiued inpatient stay Substantial Risk for: rapid decompensation
[2022-02-12 16:57] VITALS: BP 96/53; PULSE 58
[2022-02-12] MEDS: clonazePAM 1 MG TABLET PO (20:30)
[2022-02-12] MEDS: fluvoxaMINE Maleate 50 MG TABLET PO (20:30)
[2022-02-13 06:00] VITALS: BP 107/53; PULSE 55; RESP 14; TEMP 35.8; O2SAT 96
[2022-02-13] MEDS: clonazePAM 0.5 MG TABLET PO ×2 (08:30→15:44)
[2022-02-13] MEDS: busPIRone HCl 5 MG TABLET 15 MG PO ×3 (08:30→19:45)
[2022-02-13] MEDS: risperiDONE 0.5 MG TABLET PO ×4 (08:30→19:46)
[2022-02-13] MEDS: methADONE HCl 20 MG/2 ML ORAL.CONC 80 MG PO (08:31)
--- NOTE | 2022-02-13 15:14 | HO.PSYCHPN ---
Subjective Subjective Date of Service: 02/13/22 Reason For Visit: Opioid d/o, stimulant use d/o, PTSD Interim History: Patient reports it is little hard to fall asleep but even though she keeps waking up is able to fall back asleep. She still feels depressed. But no SI. Mental Status Exam Mental Status Exam Narrative: Pt is alert and oriented; behavior is cooperative; patient is not in distress; dressed in casual attire, well groomed; mood is described as the same and affect congruent, downcast, limited eye contact; Speech is normal rate, volume and prosody and not pressured; psychomotor retardation present; thought process is distracted with some latency, but is overall organized and goal directed; Thought content is on dealing with anxiety; otherwise pertinent to relevant topics and without any delusional content, paranoid ideations or grandiosity; no SI (though can intermittently come and go); denies HI. There is no evidence of perceptual disturbance; denies AVH. Patients insight and judgment are impaired, but improved and adequate Diagnostics Vital Signs (24Hr): Vital Signs - 24 hr 02/12/22 16:57 02/13/22 06:00 Temperature 96.5 F L Pulse Rate 58 55 Respiratory Rate 14 Blood Pressure 96/53 L 107/53 L Pulse Oximetry 96 Oxygen Delivery Method Room Air Medications Medications Current Medications Acetaminophen (Acetaminophen 325 Mg Tablet) 650 mg PO Q6H PRN PRN Reason: Headache/Pain Mild Scale (1-3) Al Hydroxide/Mg Hydroxide (Magnesium Hydrox/Alum Hydrox 30 Ml Oral.Susp) 30 ml PO Q6H PRN PRN Reason: Heartburn/Nausea Buspirone HCl (Buspirone Hcl 5 Mg Tablet) 15 mg PO TID [facility] Last Admin: 02/13/22 08:30 Dose: 15 mg Clonazepam (Clonazepam 1 Mg Tablet) 1 mg PO BEDTIME [facility] Last Admin: 02/12/22 20:30 Dose: 1 mg Clonazepam (Clonazepam 0.5 Mg Tablet) 0.5 mg PO BID@0900,1600 [facility] Last Admin: 02/13/22 08:30 Dose: 0.5 mg Doxycycline Hyclate (Doxycycline Hyclate 100 Mg Tablet) 100 mg PO Q12H [facility] Last Admin: 02/13/22 08:29 Dose: 100 mg Fluvoxamine Maleate (Fluvoxamine Maleate 50 Mg Tablet) 50 mg PO BEDTIME [facility] Last Admin: 02/12/22 20:30 Dose: 50 mg Hydroxyzine HCl (Hydroxyzine Hcl 50 Mg Tablet) 50 mg PO Q6H PRN PRN Reason: Anxiety Last Admin: 02/11/22 14:12 Dose: 50 mg Magnesium Hydroxide (Milk Of Magnesia 30 Ml Oral.Susp) 30 ml PO DAILY PRN PRN Reason: Constipation Methadone HCl (Methadone Hcl 20 Mg/2 Ml Oral.Conc) 80 mg PO DAILY [facility] Last Admin: 02/13/22 08:31 Dose: 80 mg Quetiapine Fumarate (Quetiapine Fumarate 100 Mg Tablet) 100 mg PO BEDTIME PRN PRN Reason: insomnia Last Admin: 02/09/22 20:44 Dose: 100 mg Risperidone (Risperidone 0.5 Mg Tablet) 0.5 mg PO BID@0900,1500 [facility] Last Admin: 02/13/22 08:30 Dose: 0.5 mg Allergies Allergies Allergy/AdvReac Type Severity Reaction Status Date / Time trazodone [TRAZODONE] Allergy Severe SHORTNESS Verified 01/14/21 02:23 OF BREATH, GASPING FOR AIR , SOB aspirin [ASPIRIN] Allergy Unknown STOMACH Verified 01/14/21 02:23 UPSET, Nausea, nausa ciprofloxacin [Cipro] Allergy Unknown Rash Verified 01/14/21 02:23 promethazine [Phenergan] Allergy Unknown Hives Verified 01/14/21 02:23 Sulfa (Sulfonamide Allergy Unknown Unknown Verified 01/14/21 02:23 Antibiotics) Assessment & Plan Assessment & Plan (1) MDD (major depressive disorder), recurrent episode, severe: Status: Acute Code(s): F33.2 - Major depressive disorder, recurrent severe without psychotic features (2) PTSD (post-traumatic stress disorder): Status: Acute Code(s): F43.10 - Post-traumatic stress disorder, unspecified (3) Opioid dependence: Status: Acute Code(s): F11.20 - Opioid dependence, uncomplicated (4) Cocaine use disorder, moderate, dependence: Status: Acute Code(s): F14.20 - Cocaine dependence, uncomplicated Plan Kelley is a 52 y.o. woman who carries a dx of opioid use disorder, cocaine use disorder, PTSD, social anxiety, and MDD recurrent. She presented to [facility] ED on 02/07/2022 due to worsening depression, anxiety, and SI with a plan to run into traffic. Precipitating factors include that pt has been using IV heroin and cocaine, chronic relapsing, has not had a period of sustained sobriety in several years. She is non-adherent with psych meds, only taking klonopin and seroquel for sleep. Says her landlord is trying to evict her. Utox positive for opiates, methadone, fentanyl, benzos, and cocaine. Hx of several [facility] admissions. 02/10 patient depressed and anxious; denies active SI but has passive wish. Patient minimizing role that her relapse and chronic substance abuse with cocaine and heroin has in worsening her anxiety/depressive symptoms, saying that the medications were working before, but then just stopped working; unable to acknowledge that after going off the medications symptoms simply got worse. Tip Mender encouraged patient to retry fluvoxamine/Remeron which she reported was helpful for a time period, however patient does not agree. Tip Mender discussed options and Patient agrees to trying Risperdal which could help some emotional lability (reviewed risks/side effects of this medication which patient understood, asked questions about and agreed to continue with). 02/11, patient depressed but no SI. More able to engage and agrees that perhaps medications were at least partially helpful in the past and agrees to get back on fluvoxamine. Will stay on Risperdal for now to see if he can help. Will hold off Remeron since patient is sleeping. Though In the past, she has had Mood congruent psychotic symptoms, none are present thus far. -hypotensive but patient denies symptoms 02/13 remains depressed, downcast affect, psychomotor retardation, quiet. No SI PLAN: 1. depression/anxiety/ptsd Continue Risperdal 0.5mg BID (may help with emotional lability -has only been taking klonopin 1 mg HS and 0.5 mg BID -seroquel 100-200 mg HS PRN for insomnia. -buspar 15mg TID was started on admission (Lamictal, Latuda, Vraylar are considerations) Continue Fluvoxamine 50mg qhs (patient has been on this before which was helpful; 2. indurated area on the wrist (left) -will monitor; no changes 02/12 Examined abscess/induration left wrist which looks to be resolving and has decreased in size and no erythemia Dr. Castellanos: She has an indurated area on the hand...if... enlarging over the next few days...recommend gen Surg to see if maybe an I&D would be of benefit. Doxycycline Hyclate 100 mg PO Q12H [facility] x8 doses 3. opioid dependence methadone 80 mg Q15 min safety checks, CV Monitor response to medications. Monitor for safety in the milieu. Discharge on stabilization. Patient seen. Chart reviewed. Discussed with team. Obtain collateral contact info?as needed med trials: Fluvoxamine: says helpful at first and then stopped working Remeron: says helpful at first and then stopped working Zoloft: Helpful however increased liver enzymes so discontinued Lexapro 10 mg Lamictal: only Sub-therapeutic dose Abilify 5 mg Mirtazapine 15 mg Oxcarbamazepine 600 Wellbutrin:? Worsened anxiety Patient reports history of Depakote and lithium which she said were unhelpful prn seroquel prn thorazine prazosin/clonidine for nightmares: not helpful I spent minutes with the patient and/or on the patient floor today, greater than?50% of which was spent counseling/coordinating care. Patient educated on: diagnosis Informed Consent: understands Reason for contiued inpatient stay Substantial Risk for: rapid decompensation
[2022-02-13 18:00] VITALS: BP 97/58; PULSE 53; RESP 16; TEMP 36.9; O2SAT 99
[2022-02-13] MEDS: fluvoxaMINE Maleate 50 MG TABLET PO (19:46)
[2022-02-13] MEDS: clonazePAM 1 MG TABLET PO (19:46)
[2022-02-14 09:00] VITALS: BP 120/69; PULSE 118; TEMP 37.2
[2022-02-14] MEDS: busPIRone HCl 5 MG TABLET 15 MG PO ×3 (09:32→20:55)
[2022-02-14] MEDS: risperiDONE 0.5 MG TABLET PO ×2 (09:32→20:55)
[2022-02-14] MEDS: clonazePAM 0.5 MG TABLET PO ×2 (09:32→16:59)
[2022-02-14] MEDS: methADONE HCl 20 MG/2 ML ORAL.CONC 80 MG PO (09:34)
[2022-02-14 18:00] VITALS: BP 90/50; PULSE 72; TEMP 36.6; O2SAT 96
[2022-02-14] MEDS: fluvoxaMINE Maleate 50 MG TABLET PO (20:55)
[2022-02-14] MEDS: clonazePAM 1 MG TABLET PO (20:55)
--- NOTE | 2022-02-14 22:26 | HO.PSYCHPN ---
Subjective Subjective Date of Service: 02/14/22 Reason For Visit: Opioid d/o, stimulant use d/o, PTSD Interim History: Patient says she is feeling isolated today and down but not sure why; still wants still wants to leave medications the way they are for now but is open to adjusting them Mental Status Exam Mental Status Exam Narrative: Pt is alert and oriented; behavior is cooperative; patient is not in distress; dressed in casual attire, well groomed; mood is described as the same and affect congruent, downcast, limited eye contact; Speech is normal rate, volume and prosody and not pressured; psychomotor retardation present; thought process is distracted with some latency, but is overall organized and goal directed; Thought content is on dealing with anxiety; otherwise pertinent to relevant topics and without any delusional content, paranoid ideations or grandiosity; no SI (though can intermittently come and go); denies HI. There is no evidence of perceptual disturbance; denies AVH. Patients insight and judgment are impaired, but improved and adequate Diagnostics Vital Signs (24Hr): Vital Signs - 24 hr 02/14/22 09:00 02/14/22 18:00 Temperature 99 F 98 F Pulse Rate 118 H 72 Blood Pressure 120/69 90/50 L Pulse Oximetry 96 Oxygen Delivery Method Room Air Medications Medications Current Medications Acetaminophen (Acetaminophen 325 Mg Tablet) 650 mg PO Q6H PRN PRN Reason: Headache/Pain Mild Scale (1-3) Al Hydroxide/Mg Hydroxide (Magnesium Hydrox/Alum Hydrox 30 Ml Oral.Susp) 30 ml PO Q6H PRN PRN Reason: Heartburn/Nausea Buspirone HCl (Buspirone Hcl 5 Mg Tablet) 15 mg PO TID [facility] Last Admin: 02/14/22 20:55 Dose: 15 mg Clonazepam (Clonazepam 0.5 Mg Tablet) 0.5 mg PO BID@0900,1600 [facility] Last Admin: 02/14/22 16:59 Dose: 0.5 mg Doxycycline Hyclate (Doxycycline Hyclate 100 Mg Tablet) 100 mg PO Q12H [facility] Last Admin: 02/14/22 20:55 Dose: 100 mg Fluvoxamine Maleate (Fluvoxamine Maleate 50 Mg Tablet) 50 mg PO BEDTIME [facility] Last Admin: 02/14/22 20:55 Dose: 50 mg Hydroxyzine HCl (Hydroxyzine Hcl 50 Mg Tablet) 50 mg PO Q6H PRN PRN Reason: Anxiety Last Admin: 02/11/22 14:12 Dose: 50 mg Magnesium Hydroxide (Milk Of Magnesia 30 Ml Oral.Susp) 30 ml PO DAILY PRN PRN Reason: Constipation Methadone HCl (Methadone Hcl 20 Mg/2 Ml Oral.Conc) 80 mg PO DAILY [facility] Last Admin: 02/14/22 09:34 Dose: 80 mg Quetiapine Fumarate (Quetiapine Fumarate 100 Mg Tablet) 100 mg PO BEDTIME PRN PRN Reason: insomnia Last Admin: 02/09/22 20:44 Dose: 100 mg Risperidone (Risperidone 0.5 Mg Tablet) 0.5 mg PO BID [facility] Last Admin: 02/14/22 20:55 Dose: 0.5 mg Allergies Allergies Allergy/AdvReac Type Severity Reaction Status Date / Time trazodone [TRAZODONE] Allergy Severe SHORTNESS Verified 01/14/21 02:23 OF BREATH, GASPING FOR AIR , SOB aspirin [ASPIRIN] Allergy Unknown STOMACH Verified 01/14/21 02:23 UPSET, Nausea, nausa ciprofloxacin [Cipro] Allergy Unknown Rash Verified 01/14/21 02:23 promethazine [Phenergan] Allergy Unknown Hives Verified 01/14/21 02:23 Sulfa (Sulfonamide Allergy Unknown Unknown Verified 01/14/21 02:23 Antibiotics) Assessment & Plan Assessment & Plan (1) MDD (major depressive disorder), recurrent episode, severe: Status: Acute Code(s): F33.2 - Major depressive disorder, recurrent severe without psychotic features (2) PTSD (post-traumatic stress disorder): Status: Acute Code(s): F43.10 - Post-traumatic stress disorder, unspecified (3) Opioid dependence: Status: Acute Code(s): F11.20 - Opioid dependence, uncomplicated (4) Cocaine use disorder, moderate, dependence: Status: Acute Code(s): F14.20 - Cocaine dependence, uncomplicated Plan Kelley is a 52 y.o. woman who carries a dx of opioid use disorder, cocaine use disorder, PTSD, social anxiety, and MDD recurrent. She presented to [facility] ED on 02/07/2022 due to worsening depression, anxiety, and SI with a plan to run into traffic. Precipitating factors include that pt has been using IV heroin and cocaine, chronic relapsing, has not had a period of sustained sobriety in several years. She is non-adherent with psych meds, only taking klonopin and seroquel for sleep. Says her landlord is trying to evict her. Utox positive for opiates, methadone, fentanyl, benzos, and cocaine. Hx of several [facility] admissions. 02/10 patient depressed and anxious; denies active SI but has passive wish. Patient minimizing role that her relapse and chronic substance abuse with cocaine and heroin has in worsening her anxiety/depressive symptoms, saying that the medications were working before, but then just stopped working; unable to acknowledge that after going off the medications symptoms simply got worse. Staff Certified Nurse Midwife encouraged patient to retry fluvoxamine/Remeron which she reported was helpful for a time period, however patient does not agree. Staff Certified Nurse Midwife discussed options and Patient agrees to trying Risperdal which could help some emotional lability (reviewed risks/side effects of this medication which patient understood, asked questions about and agreed to continue with). 02/11, patient depressed but no SI. More able to engage and agrees that perhaps medications were at least partially helpful in the past and agrees to get back on fluvoxamine. Will stay on Risperdal for now to see if he can help. Will hold off Remeron since patient is sleeping. Though In the past, she has had Mood congruent psychotic symptoms, none are present thus far. -hypotensive but patient denies symptoms 02/13 remains depressed, downcast affect, psychomotor retardation, quiet.? No SI 02/14 will consider increasing fluvoxamine; remains depressed PLAN: 1. depression/anxiety/ptsd Continue Risperdal 0.5mg BID (may help with emotional lability -has only been taking klonopin 1 mg HS and 0.5 mg BID -seroquel 100-200 mg HS PRN for insomnia. -buspar 15mg TID was started on admission (Lamictal, Latuda, Vraylar are considerations) Continue Fluvoxamine 50mg qhs (patient has been on this before which was helpful; 2. indurated area on the wrist (left) -will monitor; no changes 02/12 Examined abscess/induration left wrist which looks to be resolving and has decreased in size and no erythemia Dr. Castellanos: She has an indurated area on the hand...if... enlarging over the next few days...recommend gen Surg to see if maybe an I&D would be of benefit. Doxycycline Hyclate 100 mg PO Q12H [facility]IC[facility] x8 doses 3. opioid dependence methadone 80 mg Q15 min safety checks, CV Monitor response to medications. Monitor for safety in the milieu. Discharge on stabilization. Patient seen. Chart reviewed. Discussed with team. Obtain collateral contact info?as needed med trials: Fluvoxamine: says helpful at first and then stopped working Remeron: says helpful at first and then stopped working Zoloft: Helpful however increased liver enzymes so discontinued Lexapro 10 mg Lamictal: only Sub-therapeutic dose Abilify 5 mg Mirtazapine 15 mg Oxcarbamazepine 600 Wellbutrin:? Worsened anxiety Patient reports history of Depakote and lithium which she said were unhelpful prn seroquel prn thorazine prazosin/clonidine for nightmares: not helpful I spent minutes with the patient and/or on the patient floor today, greater than?50% of which was spent counseling/coordinating care. Patient educated on: diagnosis and medication risk/benefits Informed Consent: understands Reason for contiued inpatient stay Substantial Risk for: rapid decompensation
[2022-02-15 08:30] VITALS: BP 99/56; PULSE 82; TEMP 36.7
[2022-02-15] MEDS: risperiDONE 0.5 MG TABLET PO ×2 (09:25→19:24)
[2022-02-15] MEDS: busPIRone HCl 5 MG TABLET 15 MG PO ×3 (09:25→19:24)
[2022-02-15] MEDS: methADONE HCl 20 MG/2 ML ORAL.CONC 80 MG PO (09:27)
[2022-02-15] MEDS: clonazePAM 0.5 MG TABLET PO ×2 (10:34→16:31)
[2022-02-15 16:34] VITALS: BP 94/91; PULSE 100; TEMP 36.7; O2SAT 95
[2022-02-15] MEDS: clonazePAM 1 MG TABLET PO (19:24)
[2022-02-15] MEDS: fluvoxaMINE Maleate 50 MG TABLET 100 MG PO (19:24)
--- NOTE | 2022-02-15 20:33 | HO.PSYCHPN ---
Subjective Subjective Date of Service: 02/15/22 Reason For Visit: Opioid d/o, stimulant use d/o, PTSD Interim History: Patient said she is a little bit better and notices that she laughed some in the milieu when interacting with peers. She also says she slept better. Patient would like fluvoxamine to be increased to help with her mood. Drying Machine Back Tender examined patient's left arm/abscess which continues to be reduced in swelling and without obvious signs of infection Mental Status Exam Mental Status Exam Narrative: Pt is alert and oriented; behavior is cooperative; patient is not in distress; dressed in casual attire, well groomed; mood is described as little better though affect congruent, downcast, limited eye contact; Speech is normal rate, volume and prosody and not pressured; psychomotor retardation present; thought process is distracted with some latency, but is overall organized and goal directed; Thought content is on dealing with anxiety; otherwise pertinent to relevant topics and without any delusional content, paranoid ideations or grandiosity; no SI (though can intermittently come and go); denies HI. There is no evidence of perceptual disturbance; denies AVH. Patients insight and judgment are impaired, but improved and adequate Diagnostics Vital Signs (24Hr): Vital Signs - 24 hr 02/15/22 08:30 02/15/22 16:34 Temperature 98.1 F 98.1 F Pulse Rate 82 100 Blood Pressure 99/56 L 94/91 H Pulse Oximetry 95 Oxygen Delivery Method Room Air Medications Medications Current Medications Acetaminophen (Acetaminophen 325 Mg Tablet) 650 mg PO Q6H PRN PRN Reason: Headache/Pain Mild Scale (1-3) Al Hydroxide/Mg Hydroxide (Magnesium Hydrox/Alum Hydrox 30 Ml Oral.Susp) 30 ml PO Q6H PRN PRN Reason: Heartburn/Nausea Buspirone HCl (Buspirone Hcl 5 Mg Tablet) 15 mg PO TID [facility] Last Admin: 02/15/22 19:24 Dose: 15 mg Clonazepam (Clonazepam 1 Mg Tablet) 1 mg PO BEDTIME [facility] Last Admin: 02/15/22 19:24 Dose: 1 mg Clonazepam (Clonazepam 0.5 Mg Tablet) 0.5 mg PO DAILY@0900,1600 [facility] Last Admin: 02/15/22 16:31 Dose: 0.5 mg Doxycycline Hyclate (Doxycycline Hyclate 100 Mg Tablet) 100 mg PO Q12H [facility] Last Admin: 02/15/22 19:24 Dose: 100 mg Fluvoxamine Maleate (Fluvoxamine Maleate 50 Mg Tablet) 100 mg PO BEDTIME [facility] Last Admin: 02/15/22 19:24 Dose: 100 mg Hydroxyzine HCl (Hydroxyzine Hcl 50 Mg Tablet) 50 mg PO Q6H PRN PRN Reason: Anxiety Last Admin: 02/11/22 14:12 Dose: 50 mg Magnesium Hydroxide (Milk Of Magnesia 30 Ml Oral.Susp) 30 ml PO DAILY PRN PRN Reason: Constipation Methadone HCl (Methadone Hcl 20 Mg/2 Ml Oral.Conc) 80 mg PO DAILY [facility] Last Admin: 02/15/22 09:27 Dose: 80 mg Multi-Ingred Cream/Lotion/Oil/Oint (Mineral Oil/Petrolatum,White 106 Gm Tube) 1 appl TOPICAL TID PRN; Protocol PRN Reason: dry skin Quetiapine Fumarate (Quetiapine Fumarate 100 Mg Tablet) 100 mg PO BEDTIME PRN PRN Reason: insomnia Last Admin: 02/09/22 20:44 Dose: 100 mg Risperidone (Risperidone 0.5 Mg Tablet) 0.5 mg PO BID [facility] Last Admin: 02/15/22 19:24 Dose: 0.5 mg Allergies Allergies Allergy/AdvReac Type Severity Reaction Status Date / Time trazodone [TRAZODONE] Allergy Severe SHORTNESS Verified 01/14/21 02:23 OF BREATH, GASPING FOR AIR , SOB aspirin [ASPIRIN] Allergy Unknown STOMACH Verified 01/14/21 02:23 UPSET, Nausea, nausa ciprofloxacin [Cipro] Allergy Unknown Rash Verified 01/14/21 02:23 promethazine [Phenergan] Allergy Unknown Hives Verified 01/14/21 02:23 Sulfa (Sulfonamide Allergy Unknown Unknown Verified 01/14/21 02:23 Antibiotics) Assessment & Plan Assessment & Plan (1) MDD (major depressive disorder), recurrent episode, severe: Status: Acute Code(s): F33.2 - Major depressive disorder, recurrent severe without psychotic features (2) PTSD (post-traumatic stress disorder): Status: Acute Code(s): F43.10 - Post-traumatic stress disorder, unspecified (3) Opioid dependence: Status: Acute Code(s): F11.20 - Opioid dependence, uncomplicated (4) Cocaine use disorder, moderate, dependence: Status: Acute Code(s): F14.20 - Cocaine dependence, uncomplicated Plan Kelley is a 52 y.o. woman who carries a dx of opioid use disorder, cocaine use disorder, PTSD, social anxiety, and MDD recurrent. She presented to [facility] ED on 02/07/2022 due to worsening depression, anxiety, and SI with a plan to run into traffic. Precipitating factors include that pt has been using IV heroin and cocaine, chronic relapsing, has not had a period of sustained sobriety in several years. She is non-adherent with psych meds, only taking klonopin and seroquel for sleep. Says her landlord is trying to evict her. Utox positive for opiates, methadone, fentanyl, benzos, and cocaine. Hx of several [facility] [place]. 02/10 patient depressed and anxious; denies active SI but has passive wish. Patient minimizing role that her relapse and chronic substance abuse with cocaine and heroin has in worsening her anxiety/depressive symptoms, saying that the medications were working before, but then just stopped working; unable to acknowledge that after going off the medications symptoms simply got worse. Drying Machine Back Tender encouraged patient to retry fluvoxamine/Remeron which she reported was helpful for a time period, however patient does not agree. Drying Machine Back Tender discussed options and Patient agrees to trying Risperdal which could help some emotional lability (reviewed risks/side effects of this medication which patient understood, asked questions about and agreed to continue with). 02/11, patient depressed but no SI. More able to engage and agrees that perhaps medications were at least partially helpful in the past and agrees to get back on fluvoxamine. Will stay on Risperdal for now to see if he can help. Will hold off Remeron since patient is sleeping. Though In the past, she has had Mood congruent psychotic symptoms, none are present thus far. -hypotensive but patient denies symptoms 02/13 remains depressed, downcast affect, psychomotor retardation, quiet.? No SI 02/14 will consider increasing fluvoxamine; remains depressed PLAN: 1. depression/anxiety/ptsd INCREASE fluvoxamine to 100 mg q.h.s. for continued depression Continue Risperdal 0.5mg BID (may help with emotional lability -has only been taking klonopin 1 mg HS and 0.5 mg BID -seroquel 100-200 mg HS PRN for insomnia. -buspar 15mg TID was started on admission (Lamictal, Latuda, Vraylar are considerations) 2. indurated area on the wrist (left) -will monitor; no changes 02/12 Examined abscess/induration left wrist which looks to be resolving and has decreased in size and no erythemia Dr. Castellanos: She has an indurated area on the hand...if... enlarging over the next few days...recommend gen Surg to see if maybe an I&D would be of benefit. Doxycycline Hyclate 100 mg PO Q12H ALICIA x8 doses 3. opioid dependence methadone 80 mg Q15 min safety checks, CV Monitor response to medications. Monitor for safety in the milieu. Discharge on stabilization. Patient seen. Chart reviewed. Discussed with team. Obtain collateral contact info?as needed med trials: Fluvoxamine: says helpful at first and then stopped working Remeron: says helpful at first and then stopped working Zoloft: Helpful however increased liver enzymes so discontinued Lexapro 10 mg Lamictal: only Sub-therapeutic dose Abilify 5 mg Mirtazapine 15 mg Oxcarbamazepine 600 Wellbutrin:? Worsened anxiety Patient reports history of Depakote and lithium which she said were unhelpful prn seroquel prn thorazine prazosin/clonidine for nightmares: not helpful I spent minutes with the patient and/or on the patient floor today, greater than?50% of which was spent counseling/coordinating care. Patient educated on: diagnosis and medication risk/benefits Informed Consent: understands Reason for contiued inpatient stay Substantial Risk for: rapid decompensation
[2022-02-16 06:00] VITALS: BP 89/51; PULSE 64; RESP 16; TEMP 36.5; O2SAT 97
[2022-02-16] MEDS: risperiDONE 0.5 MG TABLET PO ×2 (09:32→20:02)
[2022-02-16] MEDS: methADONE HCl 20 MG/2 ML ORAL.CONC 80 MG PO (09:32)
[2022-02-16] MEDS: busPIRone HCl 5 MG TABLET 15 MG PO ×3 (09:32→20:02)
[2022-02-16] MEDS: clonazePAM 0.5 MG TABLET PO ×2 (09:39→15:46)
[2022-02-16] MEDS: Mineral Oil/Petrolatum,White 106 GM Tube 1 APPL TOPICAL (09:56)
--- NOTE | 2022-02-16 14:33 | P.PNPSI_ITS ---
Subjective Subjective Date of Service: 02/16/22 Reason For Visit: Opioid d/o, stimulant use d/o, PTSD Interim History: Patient reports that she has overall doing better and that her mood has significantly improved since 1st coming in. She still feels depressed and anxious and the improved mood can still epic flow, but feels her emotions are getting under control. Patient had an upsetting dream last night but wonders if it was triggered by rude comment a peer made to her last night. Patient had asked if methadone could be increased and video games storywriter agreed to start bumping it up as her mood is stabilizing Mental Status Exam Mental Status Exam Narrative: Pt is alert and oriented; behavior is cooperative; patient is not in distress; dressed in casual attire, well groomed; mood is described as little better though affect still downcast, limited eye contact; Speech is normal rate, volume and prosody and not pressured; psychomotor retardation present; thought process is distracted with some latency, but is overall organized and goal directed; Thought content is on dealing with anxiety; otherwise pertinent to relevant topics and without any delusional content, paranoid ideations or grandiosity; no SI (though can intermittently come and go); denies HI. There is no evidence of perceptual disturbance; denies AVH. Patients insight and judgment are impaired, but improved and adequate Diagnostics Vital Signs (24Hr): Vital Signs - 24 hr 02/15/22 16:34 02/16/22 06:00 Temperature 98.1 F 97.7 F Pulse Rate 100 64 Respiratory Rate 16 Blood Pressure 94/91 H 89/51 L Pulse Oximetry 95 97 Oxygen Delivery Method Room Air Room Air Medications Medications Current Medications Acetaminophen (Acetaminophen 325 Mg Tablet) 650 mg PO Q6H PRN PRN Reason: Headache/Pain Mild Scale (1-3) Al Hydroxide/Mg Hydroxide (Magnesium Hydrox/Alum Hydrox 30 Ml Oral.Susp) 30 ml PO Q6H PRN PRN Reason: Heartburn/Nausea Buspirone HCl (Buspirone Hcl 5 Mg Tablet) 15 mg PO TID [facility] Last Admin: 02/16/22 14:25 Dose: 15 mg Clonazepam (Clonazepam 1 Mg Tablet) 1 mg PO BEDTIME [facility] Last Admin: 02/15/22 19:24 Dose: 1 mg Clonazepam (Clonazepam 0.5 Mg Tablet) 0.5 mg PO DAILY@0900,1600 [facility] Last Admin: 02/16/22 09:39 Dose: 0.5 mg Doxycycline Hyclate (Doxycycline Hyclate 100 Mg Tablet) 100 mg PO Q12H [facility] Last Admin: 02/16/22 09:32 Dose: 100 mg Fluvoxamine Maleate (Fluvoxamine Maleate 50 Mg Tablet) 100 mg PO BEDTIME [facility] Last Admin: 02/15/22 19:24 Dose: 100 mg Hydroxyzine HCl (Hydroxyzine Hcl 50 Mg Tablet) 50 mg PO Q6H PRN PRN Reason: Anxiety Last Admin: 02/11/22 14:12 Dose: 50 mg Magnesium Hydroxide (Milk Of Magnesia 30 Ml Oral.Susp) 30 ml PO DAILY PRN PRN Reason: Constipation Methadone HCl (Methadone Hcl 20 Mg/2 Ml Oral.Conc) 80 mg PO DAILY [facility] Last Admin: 02/16/22 09:32 Dose: 80 mg Multi-Ingred Cream/Lotion/Oil/Oint (Mineral Oil/Petrolatum,White 106 Gm Tube) 1 appl TOPICAL TID PRN; Protocol PRN Reason: dry skin Last Admin: 02/16/22 09:56 Dose: 1 appl Quetiapine Fumarate (Quetiapine Fumarate 100 Mg Tablet) 100 mg PO BEDTIME PRN PRN Reason: insomnia Last Admin: 02/09/22 20:44 Dose: 100 mg Risperidone (Risperidone 0.5 Mg Tablet) 0.5 mg PO BID [facility] Last Admin: 02/16/22 09:32 Dose: 0.5 mg Allergies Allergies Allergy/AdvReac Type Severity Reaction Status Date / Time trazodone [TRAZODONE] Allergy Severe SHORTNESS Verified 01/14/21 02:23 OF BREATH, GASPING FOR AIR , SOB aspirin [ASPIRIN] Allergy Unknown STOMACH Verified 01/14/21 02:23 UPSET, Nausea, nausa ciprofloxacin [Cipro] Allergy Unknown Rash Verified 01/14/21 02:23 promethazine [Phenergan] Allergy Unknown Hives Verified 01/14/21 02:23 Sulfa (Sulfonamide Allergy Unknown Unknown Verified 01/14/21 02:23 Antibiotics) Assessment & Plan Assessment & Plan (1) MDD (major depressive disorder), recurrent episode, severe: Status: Acute Code(s): F33.2 - Major depressive disorder, recurrent severe without psychotic features (2) PTSD (post-traumatic stress disorder): Status: Acute Code(s): F43.10 - Post-traumatic stress disorder, unspecified (3) Opioid dependence: Status: Acute Code(s): F11.20 - Opioid dependence, uncomplicated (4) Cocaine use disorder, moderate, dependence: Status: Acute Code(s): F14.20 - Cocaine dependence, uncomplicated Plan Kelley is a 52 y.o. woman who carries a dx of opioid use disorder, cocaine use disorder, PTSD, social anxiety, and MDD recurrent. She presented to [facility] ED on 02/07/2022 due to worsening depression, anxiety, and SI with a plan to run into traffic. Precipitating factors include that pt has been using IV heroin and cocaine, chronic relapsing, has not had a period of sustained sobriety in several years. She is non-adherent with psych meds, only taking klonopin and seroquel for sleep. Says her landlord is trying to evict her. Utox positive for opiates, methadone, fentanyl, benzos, and cocaine. H[place] of several [facility] [place]. 02/10 patient depressed and anxious; denies active SI but has passive wish. Patient minimizing role that her relapse and chronic substance abuse with cocaine and heroin has in worsening her anxiety/depressive symptoms, saying that the medications were working before, but then just stopped working; unable to acknowledge that after going off the medications symptoms simply got worse. Paper Machine Back Tender encouraged patient to retry fluvoxamine/Remeron which she reported was helpful for a time period, however patient does not agree. Paper Machine Back Tender discussed options and Patient agrees to trying Risperdal which could help some emotional lability (reviewed risks/side effects of this medication which patient understood, asked questions about and agreed to continue with). 02/11, patient depressed but no SI. More able to engage and agrees that perhaps medications were at least partially helpful in the past and agrees to get back on fluvoxamine. Will stay on Risperdal for now to see if he can help. Will hold off Remeron since patient is sleeping. Though In the past, she has had Mood congruent psychotic symptoms, none are present thus far. -hypotensive but patient denies symptoms 02/13 remains depressed, downcast affect, psychomotor retardation, quiet.? No SI 02/14 will consider increasing fluvoxamine; remains depressed PLAN: 1. depression/anxiety/ptsd INCREASE fluvoxamine to 100 mg q.h.s. for continued depression Continue Risperdal 0.5mg BID (may help with emotional lability -has only been taking klonopin 1 mg HS and 0.5 mg BID -seroquel 100-200 mg HS PRN for insomnia. -buspar 15mg TID was started on admission (Lamictal, Latuda, Vraylar are considerations) 2. indurated area on the wrist (left) -will monitor; no changes 02/12 Examined abscess/induration left wrist which looks to be resolving and has decreased in size and no erythemia Dr. Castellanos: She has an indurated area on the hand...if... enlarging over the next few days...recommend gen Surg to see if maybe an I&D would be of benefit. Doxycycline Hyclate 100 mg PO Q12H ALICIA x8 doses 3. opioid dependence INCREASE to methadone 85 mg today and then to 90mg Q15 min safety checks, CV Monitor response to medications. Monitor for safety in the milieu. Discharge on stabilization. Patient seen. Chart reviewed. Discussed with team. Obtain collateral contact info?as needed med trials: Fluvoxamine: says helpful at first and then stopped working Remeron: says helpful at first and then stopped working Zoloft: Helpful however increased liver enzymes so discontinued Lexapro 10 mg Lamictal: only Sub-therapeutic dose Abilify 5 mg Mirtazapine 15 mg Oxcarbamazepine 600 Wellbutrin:? Worsened anxiety Patient reports history of Depakote and lithium which she said were unhelpful prn seroquel prn thorazine prazosin/clonidine for nightmares: not helpful I spent minutes with the patient and/or on the patient floor today, greater than?50% of which was spent counseling/coordinating care. Patient educated on: diagnosis, medication risk/benefits and substance abuse Informed Consent: understands Reason for contiued inpatient stay Substantial Risk for: stable for discharge
[2022-02-16] MEDS: methADONE HCl 20 MG/2 ML ORAL.CONC 5 MG PO (15:46)
[2022-02-16 18:00] VITALS: BP 101/63; PULSE 56; RESP 16; TEMP 36.4; O2SAT 98
[2022-02-16] MEDS: fluvoxaMINE Maleate 50 MG TABLET 100 MG PO (20:02)
[2022-02-16] MEDS: clonazePAM 1 MG TABLET PO (20:02)
[2022-02-17 06:00] VITALS: BP 92/54; PULSE 52; RESP 18
[2022-02-17] MEDS: risperiDONE 0.5 MG TABLET PO ×2 (08:24→20:07)
[2022-02-17] MEDS: methADONE HCl 20 MG/2 ML ORAL.CONC 90 MG PO (08:24)
[2022-02-17] MEDS: busPIRone HCl 5 MG TABLET 15 MG PO ×3 (08:24→20:07)
[2022-02-17] MEDS: clonazePAM 0.5 MG TABLET PO ×2 (08:31→15:57)
[2022-02-17 16:18] VITALS: BP 88/49; PULSE 50; RESP 18; O2SAT 98
--- NOTE | 2022-02-17 18:01 | HO.PSYCHPN ---
Subjective Subjective Date of Service: 02/17/22 Reason For Visit: Opioid d/o, stimulant use d/o, PTSD Interim History: Patient reports that she remains better and denies any SI. Discussed discharge and patient said she is feeling close to ready. Does worry about discharging before the weekend since the weekends are very triggering for her. Patient continues to have nightmares and wonders if it is the increasing fluvoxamine. Discussed lowering fluvoxamine and starting Remeron instead. Also discussed TMS which patient is interested Mental Status Exam Mental Status Exam Narrative: Pt is alert and oriented; behavior is cooperative; patient is not in distress; dressed in casual attire, well groomed; mood is described as little better though affect still downcast but less so; appropriate eye contact; Speech is normal rate, volume and prosody and not pressured; some psychomotor retardation present; thought process is linear and goal oriented; less distracted, no latency; Thought content is on dealing with anxiety, symptoms, aftercare; otherwise pertinent to relevant topics and without any delusional content, paranoid ideations or grandiosity; no SI; no HI; There is no evidence of perceptual disturbance; denies AVH. Patients insight and judgment are improved, fair and adequate. Diagnostics Vital Signs (24Hr): Vital Signs - 24 hr 02/17/22 06:00 02/17/22 16:18 Pulse Rate 52 50 Respiratory Rate 18 18 Blood Pressure 92/54 L 88/49 L Pulse Oximetry 98 Oxygen Delivery Method Room Air Medications Medications Current Medications Acetaminophen (Acetaminophen 325 Mg Tablet) 650 mg PO Q6H PRN PRN Reason: Headache/Pain Mild Scale (1-3) Al Hydroxide/Mg Hydroxide (Magnesium Hydrox/Alum Hydrox 30 Ml Oral.Susp) 30 ml PO Q6H PRN PRN Reason: Heartburn/Nausea Buspirone HCl (Buspirone Hcl 5 Mg Tablet) 15 mg PO TID [facility] Last Admin: 02/17/22 14:19 Dose: 15 mg Clonazepam (Clonazepam 1 Mg Tablet) 1 mg PO BEDTIME [facility] Last Admin: 02/16/22 20:02 Dose: 1 mg Clonazepam (Clonazepam 0.5 Mg Tablet) 0.5 mg PO DAILY@0900,1600 [facility] Last Admin: 02/17/22 15:57 Dose: 0.5 mg Doxycycline Hyclate (Doxycycline Hyclate 100 Mg Tablet) 100 mg PO Q12H [facility] Last Admin: 02/17/22 08:24 Dose: 100 mg Fluvoxamine Maleate (Fluvoxamine Maleate 50 Mg Tablet) 100 mg PO BEDTIME [facility] Last Admin: 02/16/22 20:02 Dose: 100 mg Hydroxyzine HCl (Hydroxyzine Hcl 50 Mg Tablet) 50 mg PO Q6H PRN PRN Reason: Anxiety Last Admin: 02/11/22 14:12 Dose: 50 mg Magnesium Hydroxide (Milk Of Magnesia 30 Ml Oral.Susp) 30 ml PO DAILY PRN PRN Reason: Constipation Methadone HCl (Methadone Hcl 20 Mg/2 Ml Oral.Conc) 90 mg PO DAILY [facility] Last Admin: 02/17/22 08:24 Dose: 90 mg Multi-Ingred Cream/Lotion/Oil/Oint (Mineral Oil/Petrolatum,White 106 Gm Tube) 1 appl TOPICAL TID PRN; Protocol PRN Reason: dry skin Last Admin: 02/16/22 09:56 Dose: 1 appl Quetiapine Fumarate (Quetiapine Fumarate 100 Mg Tablet) 100 mg PO BEDTIME PRN PRN Reason: insomnia Last Admin: 02/09/22 20:44 Dose: 100 mg Risperidone (Risperidone 0.5 Mg Tablet) 0.5 mg PO BID [facility] Last Admin: 02/17/22 08:24 Dose: 0.5 mg Allergies Allergies Allergy/AdvReac Type Severity Reaction Status Date / Time trazodone [TRAZODONE] Allergy Severe SHORTNESS Verified 01/14/21 02:23 OF BREATH, GASPING FOR AIR , SOB aspirin [ASPIRIN] Allergy Unknown STOMACH Verified 01/14/21 02:23 UPSET, Nausea, nausa ciprofloxacin [Cipro] Allergy Unknown Rash Verified 01/14/21 02:23 promethazine [Phenergan] Allergy Unknown Hives Verified 01/14/21 02:23 Sulfa (Sulfonamide Allergy Unknown Unknown Verified 01/14/21 02:23 Antibiotics) Assessment & Plan Assessment & Plan (1) MDD (major depressive disorder), recurrent episode, severe: Status: Acute Code(s): F33.2 - Major depressive disorder, recurrent severe without psychotic features (2) PTSD (post-traumatic stress disorder): Status: Acute Code(s): F43.10 - Post-traumatic stress disorder, unspecified (3) Opioid dependence: Status: Acute Code(s): F11.20 - Opioid dependence, uncomplicated (4) Cocaine use disorder, moderate, dependence: Status: Acute Code(s): F14.20 - Cocaine dependence, uncomplicated Plan Kelley is a 52 y.o. woman who carries a dx of opioid use disorder, cocaine use disorder, PTSD, social anxiety, and MDD recurrent. She presented to [facility] ED on 02/07/2022 due to worsening depression, anxiety, and SI with a plan to run into traffic. Precipitating factors include that pt has been using IV heroin and cocaine, chronic relapsing, has not had a period of sustained sobriety in several years. She is non-adherent with psych meds, only taking klonopin and seroquel for sleep. Says her landlord is trying to evict her. Utox positive for opiates, methadone, fentanyl, benzos, and cocaine. [place] [facility] [place] 02/10 patient depressed and anxious; denies active SI but has passive wish. Patient minimizing role that her relapse and chronic substance abuse with cocaine and heroin has in worsening her anxiety/depressive symptoms, saying that the medications were working before, but then just stopped working; unable to acknowledge that after going off the medications symptoms simply got worse. Mushroom Picker encouraged patient to retry fluvoxamine/Remeron which she reported was helpful for a time period, however patient does not agree. Mushroom Picker discussed options and Patient agrees to trying Risperdal which could help some emotional lability (reviewed risks/side effects of this medication which patient understood, asked questions about and agreed to continue with). 02/11, patient depressed but no SI. More able to engage and agrees that perhaps medications were at least partially helpful in the past and agrees to get back on fluvoxamine. Will stay on Risperdal for now to see if he can help. Will hold off Remeron since patient is sleeping. Though In the past, she has had Mood congruent psychotic symptoms, none are present thus far. -hypotensive but patient denies symptoms 02/13 remains depressed, downcast affect, psychomotor retardation, quiet.? No SI 02/14 will consider increasing fluvoxamine; remains depressed 02/17 patient stable no SI mood is better. Continues to have nightmares and wonders if it is the fluvoxamine that was raised to 200. Will consider lowering that and starting Remeron. Discussing discharge however patient is very worried about discharging right before the weekend which is triggering for her; discussed respite PLAN: 1. depression/anxiety/ptsd INCREASE fluvoxamine to 100 mg q.h.s. for continued depression Continue Risperdal 0.5mg BID (may help with emotional lability -has only been taking klonopin 1 mg HS and 0.5 mg BID -seroquel 100-200 mg HS PRN for insomnia. -buspar 15mg TID was started on admission (Lamictal, Latuda, Vraylar are considerations) 2. indurated area on the wrist (left) -will monitor; no changes 02/12 Examined abscess/induration left wrist which looks to be resolving and has decreased in size and no erythemia Dr. Castellanos: She has an indurated area on the hand...if... enlarging over the next few days...recommend gen Surg to see if maybe an I&D would be of benefit. Doxycycline Hyclate 100 mg PO Q12H [facility] x8 doses 3. opioid dependence INCREASE to methadone 85 mg today and then to 90mg Q15 min safety checks, CV Monitor response to medications. Monitor for safety in the milieu. Discharge on stabilization. Patient seen. Chart reviewed. Discussed with team. Obtain collateral contact info?as needed med trials: Fluvoxamine: says helpful at first and then stopped working Remeron: says helpful at first and then stopped working Zoloft: Helpful however increased liver enzymes so discontinued Lexapro 10 mg Lamictal: only Sub-therapeutic dose Abilify 5 mg Mirtazapine 15 mg Oxcarbamazepine 600 Wellbutrin:? Worsened anxiety Patient reports history of Depakote and lithium which she said were unhelpful prn seroquel prn thorazine prazosin/clonidine for nightmares: not helpful I spent minutes with the patient and/or on the patient floor today, greater than?50% of which was spent counseling/coordinating care. Patient educated on: diagnosis, medication risk/benefits and substance abuse Informed Consent: understands Reason for contiued inpatient stay Substantial Risk for: stable for discharge
[2022-02-17] MEDS: clonazePAM 1 MG TABLET PO (20:07)
[2022-02-17] MEDS: fluvoxaMINE Maleate 50 MG TABLET 100 MG PO (20:07)
[2022-02-18 06:00] VITALS: BP 89/54; PULSE 60
[2022-02-18] MEDS: methADONE HCl 20 MG/2 ML ORAL.CONC 90 MG PO (07:54)
[2022-02-18] MEDS: risperiDONE 0.5 MG TABLET PO ×2 (07:54→19:57)
[2022-02-18] MEDS: busPIRone HCl 5 MG TABLET 15 MG PO ×3 (07:54→19:57)
[2022-02-18] MEDS: clonazePAM 0.5 MG TABLET PO ×2 (08:29→17:42)
[2022-02-18 09:16] VITALS: BP 89/54; PULSE 57; RESP 17; TEMP 37.1; O2SAT 96
--- NOTE | 2022-02-18 09:57 | P.PNPSI_ITS ---
Subjective Subjective Date of Service: 02/18/22 Reason For Visit: Opioid d/o, stimulant use d/o, PTSD Interim History: remains in better mood, anxiety better, no SI; had another nightmare last night and thinks probably due to increaed fluvoxamine dose; agrees to lower it and add remeron back on which worked in past. Mental Status Exam Mental Status Exam Narrative: Pt is alert and oriented; behavior is cooperative; patient is not in distress; dressed in casual attire, well groomed; mood is described as better though affect, brighter; appropriate eye contact; Speech is normal rate, volume and prosody and not pressured; no psychomotor retardation present; thought process is linear and goal oriented; no latency; Thought content is on dealing staying stable, aftercare; otherwise pertinent to relevant topics and without any delusional content, paranoid ideations or grandiosity; no SI; no HI; There is no evidence of perceptual disturbance; denies AVH. Patients insight and judgment are improved, fair and adequate. Diagnostics Vital Signs (24Hr): Vital Signs - 24 hr 02/17/22 16:18 02/18/22 06:00 02/18/22 09:16 Temperature 98.8 F Pulse Rate 50 60 57 Respiratory Rate 18 17 Blood Pressure 88/49 L 89/54 L 89/54 L Pulse Oximetry 98 96 Oxygen Delivery Method Room Air Medications Medications Current Medications Acetaminophen (Acetaminophen 325 Mg Tablet) 650 mg PO Q6H PRN PRN Reason: Headache/Pain Mild Scale (1-3) Al Hydroxide/Mg Hydroxide (Magnesium Hydrox/Alum Hydrox 30 Ml Oral.Susp) 30 ml PO Q6H PRN PRN Reason: Heartburn/Nausea Buspirone HCl (Buspirone Hcl 5 Mg Tablet) 15 mg PO TID [facility] Last Admin: 02/18/22 07:54 Dose: 15 mg Clonazepam (Clonazepam 1 Mg Tablet) 1 mg PO BEDTIME [facility] Last Admin: 02/17/22 20:07 Dose: 1 mg Clonazepam (Clonazepam 0.5 Mg Tablet) 0.5 mg PO DAILY@0900,1600 [facility] Last Admin: 02/18/22 08:29 Dose: 0.5 mg Doxycycline Hyclate (Doxycycline Hyclate 100 Mg Tablet) 100 mg PO Q12H [facility] Last Admin: 02/18/22 07:54 Dose: 100 mg Fluvoxamine Maleate (Fluvoxamine Maleate 50 Mg Tablet) 100 mg PO BEDTIME [facility] Last Admin: 02/17/22 20:07 Dose: 100 mg Hydroxyzine HCl (Hydroxyzine Hcl 50 Mg Tablet) 50 mg PO Q6H PRN PRN Reason: Anxiety Last Admin: 02/11/22 14:12 Dose: 50 mg Magnesium Hydroxide (Milk Of Magnesia 30 Ml Oral.Susp) 30 ml PO DAILY PRN PRN Reason: Constipation Methadone HCl (Methadone Hcl 20 Mg/2 Ml Oral.Conc) 90 mg PO DAILY [facility] Last Admin: 02/18/22 07:54 Dose: 90 mg Multi-Ingred Cream/Lotion/Oil/Oint (Mineral Oil/Petrolatum,White 106 Gm Tube) 1 appl TOPICAL TID PRN; Protocol PRN Reason: dry skin Last Admin: 02/16/22 09:56 Dose: 1 appl Quetiapine Fumarate (Quetiapine Fumarate 100 Mg Tablet) 100 mg PO BEDTIME PRN PRN Reason: insomnia Last Admin: 02/09/22 20:44 Dose: 100 mg Risperidone (Risperidone 0.5 Mg Tablet) 0.5 mg PO BID [facility] Last Admin: 02/18/22 07:54 Dose: 0.5 mg Allergies Allergies Allergy/AdvReac Type Severity Reaction Status Date / Time trazodone [TRAZODONE] Allergy Severe SHORTNESS Verified 01/14/21 02:23 OF BREATH, GASPING FOR AIR , SOB aspirin [ASPIRIN] Allergy Unknown STOMACH Verified 01/14/21 02:23 UPSET, Nausea, nausa ciprofloxacin [Cipro] Allergy Unknown Rash Verified 01/14/21 02:23 promethazine [Phenergan] Allergy Unknown Hives Verified 01/14/21 02:23 Sulfa (Sulfonamide Allergy Unknown Unknown Verified 01/14/21 02:23 Antibiotics) Assessment & Plan Assessment & Plan (1) MDD (major depressive disorder), recurrent episode, severe: Status: Acute Code(s): F33.2 - Major depressive disorder, recurrent severe without psychotic features (2) PTSD (post-traumatic stress disorder): Status: Acute Code(s): F43.10 - Post-traumatic stress disorder, unspecified (3) Opioid dependence: Status: Acute Code(s): F11.20 - Opioid dependence, uncomplicated (4) Cocaine use disorder, moderate, dependence: Status: Acute Code(s): F14.20 - Cocaine dependence, uncomplicated Plan Kelley is a 52 y.o. woman who carries a dx of opioid use disorder, cocaine use disorder, PTSD, social anxiety, and MDD recurrent. She presented to [facility] ED on 02/07/2022 due to worsening depression, anxiety, and SI with a plan to run into traffic. Precipitating factors include that pt has been using IV heroin and cocaine, chronic relapsing, has not had a period of sustained sobriety in several years. She is non-adherent with psych meds, only taking klonopin and seroquel for sleep. Says her landlord is trying to evict her. Utox positive for opiates, methadone, fentanyl, benzos, and cocaine. Hx of several [facility] [place]. 02/10 patient depressed and anxious; denies active SI but has passive wish. Patient minimizing role that her relapse and chronic substance abuse with cocaine and heroin has in worsening her anxiety/depressive symptoms, saying that the medications were working before, but then just stopped working; unable to acknowledge that after going off the medications symptoms simply got worse. Nurse Epidemiologist encouraged patient to retry fluvoxamine/Remeron which she reported was helpful for a time period, however patient does not agree. Nurse Epidemiologist discussed options and Patient agrees to trying Risperdal which could help some emotional lability (reviewed risks/side effects of this medication which patient understood, asked questions about and agreed to continue with). 02/11, patient depressed but no SI. More able to engage and agrees that perhaps medications were at least partially helpful in the past and agrees to get back on fluvoxamine. Will stay on Risperdal for now to see if he can help. Will hold off Remeron since patient is sleeping. Though In the past, she has had Mood congruent psychotic symptoms, none are present thus far. -hypotensive but patient denies symptoms 02/13 remains depressed, downcast affect, psychomotor retardation, quiet.? No SI 02/14 will consider increasing fluvoxamine; remains depressed 02/17 patient stable no SI mood is better. Continues to have nightmares and wonders if it is the fluvoxamine that was raised to 200. Will consider lowering that and starting Remeron. Discussing discharge however patient is very worr ied about discharging right before the weekend which is triggering for her; discussed respite 02/18 stable, no SI; still nightmares so will lower fluvox back to 50mg and restart remeron (which worked in past) PLAN: 1. depression/anxiety/ptsd Lowered to fluvoxamine to 50 mg q.h.s. (lowered since maybe causing nightmares at 100mg) START Remeron 7.5mg qhs Continue Risperdal 0.5mg BID (may help with emotional lability -has only been taking klonopin 1 mg HS and 0.5 mg BID -seroquel 100-200 mg HS PRN for insomnia. -buspar 15mg TID was started on admission (Lamictal, Latuda, Vraylar are considerations) 2. indurated area on the wrist (left) -will monitor; no changes 02/12 Examined abscess/induration left wrist which looks to be resolving and has decreased in size and no erythemia Dr. Castellanos: She has an indurated area on the hand...if... enlarging over the next few days...recommend gen Surg to see if maybe an I&D would be of benefit. Doxycycline Hyclate 100 mg PO Q12H [facility] x8 doses 3. opioid dependence INCREASE to methadone 85 mg today and then to 90mg Q15 min safety checks, CV Monitor response to medications. Monitor for safety in the milieu. Discharge on stabilization. Patient seen. Chart reviewed. Discussed with team. Obtain collateral contact info?as needed med trials: Fluvoxamine: says helpful at first and then stopped working Remeron: says helpful at first and then stopped working Zoloft: Helpful however increased liver enzymes so discontinued Lexapro 10 mg Lamictal: only Sub-therapeutic dose Abilify 5 mg Mirtazapine 15 mg Oxcarbamazepine 600 Wellbutrin:? Worsened anxiety Patient reports history of Depakote and lithium which she said were unhelpful prn seroquel prn thorazine prazosin/clonidine for nightmares: not helpful I spent minutes with the patient and/or on the patient floor today, greater than?50% of which was spent counseling/coordinating care. Patient educated on: diagnosis and medication risk/benefits Informed Consent: understands Reason for contiued inpatient stay Substantial Risk for: stable for discharge
[2022-02-18 18:00] VITALS: BP 122/78; PULSE 78; RESP 16; TEMP 36.6; O2SAT 98
[2022-02-18] MEDS: clonazePAM 1 MG TABLET PO (19:57)
[2022-02-18] MEDS: Mirtazapine 7.5 MG TABLET PO (19:57)
[2022-02-18] MEDS: fluvoxaMINE Maleate 50 MG TABLET PO (19:57)
[2022-02-19] MEDS: busPIRone HCl 5 MG TABLET 15 MG PO ×3 (08:52→20:09)
[2022-02-19] MEDS: risperiDONE 0.5 MG TABLET PO ×2 (08:52→20:09)
[2022-02-19] MEDS: methADONE HCl 20 MG/2 ML ORAL.CONC 90 MG PO (08:52)
[2022-02-19] MEDS: clonazePAM 0.5 MG TABLET PO ×2 (08:56→16:00)
[2022-02-19 09:02] VITALS: BP 114/56; PULSE 55; RESP 18; TEMP 36.8; O2SAT 97
--- NOTE | 2022-02-19 14:11 | HO.PSYCHPN ---
Subjective Subjective Date of Service: 02/19/22 Reason For Visit: Opioid d/o, stimulant use d/o, PTSD Medical Problems Affecting Mental Status: Yes Interim History: Patient reports depression remains but her mood is much better and she remains without any SI. Anxiety under better control. Nightmares less last night with reduction of fluvoxamine; patient will continue to take fluvoxamine 50 mg and Remeron which was restarted. Patient remains interested in TMS and consult set up for right after patient's discharge. Patient feels ready to go home. Mental Status Exam Mental Status Exam Narrative: Pt is alert and oriented; behavior is cooperative; patient is not in distress; dressed in casual attire, well groomed; mood is described as better though affect, brighter; appropriate eye contact; Speech is normal rate, volume and prosody and not pressured; no psychomotor retardation present; thought process is linear and goal oriented; no latency; Thought content is on dealing staying stable, aftercare; otherwise pertinent to relevant topics and without any delusional content, paranoid ideations or grandiosity; no SI; no HI; There is no evidence of perceptual disturbance; denies AVH. Patients insight and judgment are improved, fair and adequate. Diagnostics Vital Signs (24Hr): Vital Signs - 24 hr 02/18/22 18:00 02/19/22 09:02 Temperature 97.8 F 98.2 F Pulse Rate 78 55 Respiratory Rate 16 18 Blood Pressure 122/78 114/56 L Pulse Oximetry 98 97 Oxygen Delivery Method Room Air Room Air Medications Medications Current Medications Acetaminophen (Acetaminophen 325 Mg Tablet) 650 mg PO Q6H PRN PRN Reason: Headache/Pain Mild Scale (1-3) Al Hydroxide/Mg Hydroxide (Magnesium Hydrox/Alum Hydrox 30 Ml Oral.Susp) 30 ml PO Q6H PRN PRN Reason: Heartburn/Nausea Buspirone HCl (Buspirone Hcl 5 Mg Tablet) 15 mg PO TID [facility] Last Admin: 02/19/22 08:52 Dose: 15 mg Clonazepam (Clonazepam 1 Mg Tablet) 1 mg PO BEDTIME [facility] Last Admin: 02/18/22 19:57 Dose: 1 mg Clonazepam (Clonazepam 0.5 Mg Tablet) 0.5 mg PO DAILY@0900,1600 [facility] Last Admin: 02/19/22 08:56 Dose: 0.5 mg Fluvoxamine Maleate (Fluvoxamine Maleate 50 Mg Tablet) 50 mg PO BEDTIME [facility] Last Admin: 02/18/22 19:57 Dose: 50 mg Hydroxyzine HCl (Hydroxyzine Hcl 50 Mg Tablet) 50 mg PO Q6H PRN PRN Reason: Anxiety Last Admin: 02/11/22 14:12 Dose: 50 mg Magnesium Hydroxide (Milk Of Magnesia 30 Ml Oral.Susp) 30 ml PO DAILY PRN PRN Reason: Constipation Methadone HCl (Methadone Hcl 20 Mg/2 Ml Oral.Conc) 90 mg PO DAILY [facility] Last Admin: 02/19/22 08:52 Dose: 90 mg Mirtazapine (Mirtazapine 7.5 Mg Tablet) 7.5 mg PO BEDTIME [facility] Last Admin: 02/18/22 19:57 Dose: 7.5 mg Multi-Ingred Cream/Lotion/Oil/Oint (Mineral Oil/Petrolatum,White 106 Gm Tube) 1 appl TOPICAL TID PRN; Protocol PRN Reason: dry skin Last Admin: 02/16/22 09:56 Dose: 1 appl Quetiapine Fumarate (Quetiapine Fumarate 100 Mg Tablet) 100 mg PO BEDTIME PRN PRN Reason: insomnia Last Admin: 02/09/22 20:44 Dose: 100 mg Risperidone (Risperidone 0.5 Mg Tablet) 0.5 mg PO BID [facility] Last Admin: 02/19/22 08:52 Dose: 0.5 mg Allergies Allergies Allergy/AdvReac Type Severity Reaction Status Date / Time trazodone [TRAZODONE] Allergy Severe SHORTNESS Verified 01/14/21 02:23 OF BREATH, GASPING FOR AIR , SOB aspirin [ASPIRIN] Allergy Unknown STOMACH Verified 01/14/21 02:23 UPSET, Nausea, nausa ciprofloxacin [Cipro] Allergy Unknown Rash Verified 01/14/21 02:23 promethazine [Phenergan] Allergy Unknown Hives Verified 01/14/21 02:23 Sulfa (Sulfonamide Allergy Unknown Unknown Verified 01/14/21 02:23 Antibiotics) Assessment & Plan Assessment & Plan (1) MDD (major depressive disorder), recurrent episode, severe: Status: Acute Code(s): F33.2 - Major depressive disorder, recurrent severe without psychotic features (2) PTSD (post-traumatic stress disorder): Status: Acute Code(s): F43.10 - Post-traumatic stress disorder, unspecified (3) Opioid dependence: Status: Acute Code(s): F11.20 - Opioid dependence, uncomplicated (4) Cocaine use disorder, moderate, dependence: Status: Acute Code(s): F14.20 - Cocaine dependence, uncomplicated Plan Kelley is a 52 y.o. woman who carries a dx of opioid use disorder, cocaine use disorder, PTSD, social anxiety, and MDD recurrent. She presented to [facility] ED on 02/07/2022 due to worsening depression, anxiety, and SI with a plan to run into traffic. Precipitating factors include that pt has been using IV heroin and cocaine, chronic relapsing, has not had a period of sustained sobriety in several years. She is non-adherent with psych meds, only taking klonopin and seroquel for sleep. Says her landlord is trying to evict her. Utox positive for opiates, methadone, fentanyl, benzos, and cocaine. Hx of several [facility] [place] [facility] admissions. 02/10 patient depressed and anxious; denies active SI but has passive wish. Patient minimizing role that her relapse and chronic substance abuse with cocaine and heroin has in worsening her anxiety/depressive symptoms, saying that the medications were working before, but then just stopped working; unable to acknowledge that after going off the medications symptoms simply got worse. [employer] encouraged patient to retry fluvoxamine/Remeron which she reported was helpful for a time period, however patient does not agree. [employer] discussed options and Patient agrees to trying Risperdal which could help some emotional lability (reviewed risks/side effects of this medication which patient understood, asked questions about and agreed to continue with). 02/11, patient depressed but no SI. More able to engage and agrees that perhaps medications were at least partially helpful in the past and agrees to get back on fluvoxamine. Will stay on Risperdal for now to see if he can help. Will hold off Remeron since patient is sleeping. Though In the past, she has had Mood congruent psychotic symptoms, none are present thus far. -hypotensive but patient denies symptoms 02/13 remains depressed, downcast affect, psychomotor retardation, quiet.? No SI 02/14 will consider increasing fluvoxamine; remains depressed 02/17 patient stable no SI mood is better. Continues to have nightmares and wonders if it is the fluvoxamine that was raised to 200. Will consider lowering that and starting Remeron. Discussing discharge however patient is very worried about discharging right before the weekend which is triggering for her; discussed respite 02/18 stable, no SI; still nightmares so will lower fluvox back to 50mg and restart remeron (which worked in past) 02/19 patient remains in much improved mood, no SI no AVH no HI and anxiety under better control. She reports she is ready to go home tomorrow and is relieved to have made headway on her housing situation. Patient appreciates increase in methadone and is optimistic about staying sober. Patient has supports and a prescriber with whom she has a good rapport. She is not in imminent risk for harm to self or others and she is appropriate to continue treatment in the outpatient community. PLAN: 1. depression/anxiety/ptsd Continue fluvoxamine to 50 mg q.h.s. (lowered since maybe causing nightmares at 100mg) Continue Remeron 7.5mg qhs Continue Risperdal 0.5mg BID (may help with emotional lability -has only been taking klonopin 1 mg HS and 0.5 mg BID -seroquel 100-200 mg HS PRN for insomnia. -buspar 15mg TID was started on admission (Lamictal, Latuda, Vraylar are considerations) 2. indurated area on the wrist (left) -will monitor; no changes 02/12 Examined abscess/induration left wrist which looks to be resolving and has decreased in size and no erythemia Dr. Castellanos: She has an indurated area on the hand...if... enlarging over the next few days...recommend gen Surg to see if maybe an I&D would be of benefit. Doxycycline Hyclate 100 mg PO Q12H ALICIA x8 doses 3. opioid dependence INCREASE to methadone 85 mg today and then to 90mg Q15 min safety checks, CV Monitor response to medications. Monitor for safety in the milieu. Discharge on stabilization. Patient seen. Chart reviewed. Discussed with team. Obtain collateral contact info?as needed med trials: Fluvoxamine: says helpful at first and then stopped working Remeron: says helpful at first and then stopped working Zoloft: Helpful however increased liver enzymes so discontinued Lexapro 10 mg Lamictal: only Sub-therapeutic dose Abilify 5 mg Mirtazapine 15 mg Oxcarbamazepine 600 Wellbutrin:? Worsened anxiety Patient reports history of Depakote and lithium which she said were unhelpful prn seroquel prn thorazine prazosin/clonidine for nightmares: not helpful I spent minutes with the patient and/or on the patient floor today, greater than?50% of which was spent counseling/coordinating care. Patient educated on: diagnosis, medication risk/benefits and substance abuse Informed Consent: understands Reason for contiued inpatient stay Substantial Risk for: stable for discharge
[2022-02-19 15:44] VITALS: BP 101/63; PULSE 51
[2022-02-19] MEDS: fluvoxaMINE Maleate 50 MG TABLET PO (20:09)
[2022-02-19] MEDS: clonazePAM 1 MG TABLET PO (20:09)
[2022-02-19] MEDS: Mirtazapine 7.5 MG TABLET PO (20:09)
[2022-02-20 06:00] VITALS: BP 109/59; PULSE 67; RESP 18; TEMP 36.3; O2SAT 97
[2022-02-20] MEDS: methADONE HCl 20 MG/2 ML ORAL.CONC 90 MG PO (09:15)
[2022-02-20] MEDS: busPIRone HCl 5 MG TABLET 15 MG PO (09:15)
[2022-02-20] MEDS: risperiDONE 0.5 MG TABLET PO (09:15)
[2022-02-20] MEDS: clonazePAM 0.5 MG TABLET PO (09:15)
--- NOTE | 2022-02-20 09:36 | P.DS_ITS ---
DS: Providers Provider Date of Service: 02/20/22 Date of admission: 02/09/22 16:08 Date of discharge: 02/20/22 Primary care physician: Aretha Macedo MD Attending physician on admission: Bhupinder Chavez Consults: 02/09/22 18:23 Consult to Hospitalist Routine Consulting Provider: Hospitalist Reason For Exam: New admit from [facility] Attending physician on discharge: Bhupinder Chavez DS: Diagnosis Discharge Diagnosis (1) MDD (major depressive disorder), recurrent episode, severe: Status: Acute (2) PTSD (post-traumatic stress disorder): Status: Acute (3) Opioid dependence: Status: Acute (4) Cocaine use disorder, moderate, dependence: Status: Acute DS: Medications Discharge Medications Home Medications: Previous Rx's Medication Instructions Recorded clonazepam 1 mg tablet See Rx Instructions .Route 07/15/21 .COMPLEX PRN anxiety 15 days #30 tabs albuterol sulfate 90 mcg/actuation 2 puff inhalation Q4H PRN wheezing 02/19/22 aerosol inhaler (ProAir HFA) 30 days #6.7 grams buspirone 15 mg tablet 15 mg PO TID 30 days #90 tabs 02/19/22 fluvoxamine 50 mg tablet 50 mg PO BEDTIME 30 days #30 tabs 02/19/22 methadone 10 mg/mL oral 90 mg (9 mL) PO DAILY #0 mL 02/19/22 concentrate (Methadose) mirtazapine 7.5 mg tablet 7.5 mg PO BEDTIME 30 days #30 tabs 02/19/22 nicotine 21 mg/24 hr daily 21 mg transdermal DAILY PRN 02/19/22 transdermal patch smoking cessation 28 days #28 ea risperidone 0.5 mg tablet 0.5 mg PO BID 30 days #60 tabs 02/19/22 Mental Status Exam Mental Status Exam Narrative: Pt is alert and oriented; behavior is cooperative; patient is not in distress; dressed in casual attire, well groomed; mood is described as better though affect, brighter; appropriate eye contact; Speech is normal rate, volume and prosody and not pressured; no psychomotor retardation present; thought process is linear and goal oriented; no latency; Thought content is on dealing staying stable, aftercare; otherwise pertinent to relevant topics and without any delusional content, paranoid ideations or grandiosity; no SI; no HI; There is no evidence of perceptual disturbance; denies AVH. Patients insight and judgment are improved, fair and adequate. DS: Summary Hospital Course Hospital Course: HPI: Kelley is a 52 y.o. woman who carries a dx of opioid use disorder, cocaine use disorder, PTSD, social anxiety, and MDD recurrent. She presented to [facility] ED on 02/07/2022 due to worsening depression, anxiety, and SI with a plan to run into traffic. Precipitating factors include that pt has been using IV heroin and cocaine, chronic relapsing, has not had a period of sustained sobriety in several years. She is non-adherent with psych meds, only taking klonopin and seroquel for sleep. Says her landlord is trying to evict her. Utox positive for opiates, methadone, fentanyl, benzos, and cocaine. Hx of several [facility] [place] [place] admissions. Hospital course: On admission, patient was depressed with a passive wish, and struggling with anxiety. She was also detoxing from cocaine and opioids. Initially patient had a hard time deciding if past medications fluvoxamine and Remeron were helpful, saying they initially helped but seem to stop helping; however aft er more reflection she agreed that her consistent substance abuse interfered with their affect and agreed to get back on fluvoxamine medications. Patient also agreed to try Risperdal to help with emotional lability which patient found helpful. Patient remained depressed for several days however the medication kicked in and depression began to cris. All SI resolved. Patient reported she was mostly able to sleep well however when a fluvoxamine was increased to 100 mg, patient experienced nightmares so it was reduced back to 50 mg and Remeron started instead, both which were well tolerated and nightmares decreased. Patient's affect brightened and she remained with significantly improved mood. SI remained fully resolved. Patient was appropriate with peers and staff, attended group and was engaged in treatment. The situation with her housing/eviction seemed to be getting resolved and she would be able to stay in her place. Patient felt that methadone was much more helpful than Suboxone and this was also increased by 10 mg. Patient felt ready to return home, overall in a much better mood and future oriented. Assistant Coach discussed with her the possibility of TMS which she was very interested in and a consult appointment was arranged. Patient remains vulnerable to both relapse and decompensation as she has had a very long history struggling with both; however as mentioned this is chronic and will not resolve with a longer stay on the unit but requires consistent outpatient treatment with which patient says she is willing to engage. Patient was not in imminent risk for harm to self or others and appropriate to continue her treatment in the community. On admission, patient had an indurated area on her left wrist where she had injected drugs; hospitalist inspected and felt that it was resolving and patient was started on a trial of antibiotics which she completed. Induration continue to decrease in size and was without any signs of infection. Past med trials: Zoloft: Helpful however increased liver enzymes so discontinued Lexapro 10 mg Lamictal: only Sub-therapeutic dose Abilify 5 mg Mirtazapine 15 mg Oxcarbamazepine 600 Wellbutrin:? Worsened anxiety Patient reports history of Depakote and lithium which she said were unhelpful prn seroquel prn thorazine prazosin/clonidine for nightmares: not helpful Time spent discussing smoking cessation with patient: 3 to 10 minutes Status at Discharge Functional status at discharge: independent ambulation Overall status at discharge: patient is progressing back to baseline Time Spent with Patient Time attestation: Total time spent providing and/or coordinating discharge services: Time spent: Greater than 30 minutes Discharge Plan Discharge Anticipated Discharge Date/Time: 02/20/22 11:00 Patient Disposition: Home, Self-Care Discharge Diagnosis: MDD, recurrent, severe without psychosis, in partial sis ssion Referrals: Mikayla Zacarias [Other] - 02/25/22 9:00 am (Patient follow-up discharge appointment with outpatient psychiatric provider. Appointment by tele-health ) Aretha Macedo MD [Primary Care Provider] - 1 Week (LEFT MESSAGE TO CALL BACK FOR F/U APPOINTMENTalso left message for them to call her at home with f/u appointment) Discharge Medications: New buspirone 15 mg tablet 15 mg PO TID 30 Days Qty: 90 0RF methadone [Methadose] 10 mg/mL Concentrate 90 mg PO DAILY Qty: 0 0RF Rx Instructions: Partial Fill upon patient request. risperidone 0.5 mg Tablet 0.5 mg PO BID 30 Days Qty: 60 0RF Continued clonazepam 1 mg tablet See Rx Instructions .ROUTE .COMPLEX PRN (Reason: anxiety) 15 Days Qty: 30 0RF Rx Instructions: take 1/2 BID prn for anxiety; take 1 tab at bedtime prn for anxiety nicotine 21 mg/24 hr Patch 24 Hour 21 mg transdermal DAILY PRN (Reason: smoking cessation) 28 Days Qty: 28 0RF albuterol sulfate [ProAir HFA] 90 mcg/actuation HFA aerosol inhaler 2 puff inhalation Q4H PRN (Reason: wheezing) 30 Days Qty: 6.7 0RF Changed fluvoxamine 50 mg tablet 50 mg PO BEDTIME 30 Days Qty: 30 0RF mirtazapine 7.5 mg tablet 7.5 mg PO BEDTIME 30 Days Qty: 30 0RF Discontinued buprenorphine-naloxone [Suboxone] 8-2 mg film 2 strip sublingual DAILY cephalexin 500 mg Capsule 500 mg PO QID 2 Days Qty: 7 0RF doxycycline hyclate 100 mg Tablet 100 mg PO BID 2 Days Qty: 3 0RF buprenorphine-naloxone [Suboxone] 2-0.5 mg Film 1 film sublingual BID PRN (Reason: Pain, Moderate (Pain Scale 4-6) Qty: 0 0RF buprenorphine-naloxone [Suboxone] 2-0.5 mg film 1 film sublingual BID Qty: 14 0RF Rx Instructions: place 1 strip/tab under (each) side of tongue chlorpromazine 50 mg tablet See Rx Instructions .ROUTE .COMPLEX Qty: 120 0RF Rx Instructions: take 1 tab BID as needed for anxiety; take 2 tabs at bedtime as needed for insomnia Discharge Orders: Discharge Order (Routine); Ordered 02/20/22 Ordered By: Bhupinder Chavez Diet: Regular diet Activity on Discharge: As tolerated Stand Alone Forms: Patient Portal Discharge page Care Plan Goals: Maintain mood and safe behaviors Take medications as prescribed Continue to pursue sobriety Practice coping skills Continue with outpatient providers and reach out to them as needed Health Concerns: Mood stability and behaviors Sobriety Asthma Plan of Treatment: Follow up with your PCP, psychiatric provider and other outpatient providers regarding above concerns Take medications as prescribed Assessment: Risk assessment at time of discharge:? Patient was interviewed prior to discharge and found to be fully oriented and without any SI or HI. Patient has insight and demonstrates good judgment in terms of wanting to pursue treatment. Patient is not in imminent risk of harm to self or others and has a safety plan that includes presenting to the closest ER or calling 911 if feeling unsafe.? Patient has been observed closely by nursing and unit staff throughout admission; patient has not engaged in any behaviors that suggest dangerousness to self or others and has demonstrated appropriate behaviors and impulse control
== END 2022-02-20 11:19 | disposition home or self-care (01) | DRG 751 ==
PROVIDERS: Admitting Provider Psychiatry & Neurology Psychiatry; PCP Internal Medicine; Visit Provider Psychiatry & Neurology Psychiatry
DX: F33.2 Major depressive disorder, recurrent severe without psychotic features (principal); I95.89 Other hypotension; R45.851 Suicidal ideations; F11.20 Opioid dependence, uncomplicated; J44.9 Chronic obstructive pulmonary disease, unspecified; F17.210 Nicotine dependence, cigarettes, uncomplicated; L02.414 Cutaneous abscess of left upper limb; F14.20 Cocaine dependence, uncomplicated; F43.10 Post-traumatic stress disorder, unspecified; Z71.6 Tobacco abuse counseling; Z88.1 Allergy status to other antibiotic agents; Z88.2 Allergy status to sulfonamides; Z88.6 Allergy status to analgesic agent; Z88.8 Allergy status to other drugs, medicaments and biological substances; Z79.899 Other long term (current) drug therapy
CPT/HCPCS: 90686; 90792

== ENCOUNTER 2022-04-12 21:15 | Inpatient (IN) | payer OTHER, SELFPAY ==
[2022-04-12 21:26] VITALS: BP 157/90; BP 158/100; PULSE 64; PULSE 71; RESP 18; TEMP 36.8; O2SAT 98; BMI 23.9
--- NOTE | 2022-04-12 21:40 | ECG_ITS ---
Test Reason : SYNCOPE Blood Pressure : / mmHG Vent. Rate : 064 BPM Atrial Rate : 064 BPM P-R Int : 156 ms QRS Dur : 078 ms QT Int : 472 ms P-R-T Axes : 012 030 035 degrees QTc Int : 486 ms Normal sinus rhythm Prolonged QT Abnormal ECG When compared with ECG of 09-JUL-2021 18:22, No significant change was found Referred By: Trip Mao Electronically Signed By:CHADWICK CARIAS MD
--- NOTE | 2022-04-12 21:41 | ED.GENADULT ---
HPI - General Adult General Chief complaint: General Medical Stated complaint: syncope Time Seen by Provider: 04/12/22 21:31 Source: patient Mode of arrival: EMS Limitations: no limitations History of Present Illness HPI narrative: 52-year-old female who presents emergency department for evaluation of a syncopal episode at home. Patient states that she was recently hospitalized in [place] for psychiatric illness and detox. She states that when she was discharged she was not given a refill of her Klonopin. She states she takes Klonopin 1 mg at night and half a tab twice a day as needed for anxiety. She states that she has been taking small pieces of her Klonopin so that she does not withdraw but she now believes that she is in withdrawal. She states that she is shaking uncontrollably, she has hot and cold flashes with sweats, she has had nausea with vomiting. She states that she walked into her kitchen, she felt lightheaded and dizzy as if she was going to pass out and then lowered herself to the ground. She then called her neighbor who called 911 and she was transported to the emergency department for evaluation. The patient does have a history of heroin and cocaine use disorder. She states that she relapsed yesterday and injected 1 bag of heroin and 1 bag of cocaine. She denied fever, rhinorrhea, sore throat, cough, chest pain, shortness of breath or dyspnea on exertion. She denied dark tarry stools or bright blood per rectum. She denied frequency, urgency or dysuria. Related Data Home Medications Medication Instructions Recorded Confirmed buspirone 10 mg tablet 1 tab PO TID 04/13/22 04/13/22 clonazepam 1 mg tablet 0.5 mg PO BID PRN Anxiety 04/13/22 04/13/22 clonazepam 1 mg tablet 1 mg PO BEDTIME 04/13/22 04/13/22 methadone 10 mg/mL oral 85 mg PO DAILY 04/13/22 04/13/22 concentrate (Methadose) sertraline 50 mg tablet 75 mg PO DAILY 04/13/22 04/13/22 Previous Rx's Medication Instructions Recorded albuterol sulfate 90 mcg/actuation 2 puff inhalation Q4H PRN wheezing 02/19/22 aerosol inhaler (ProAir HFA) 30 days #6.7 grams Allergies Allergy/AdvReac Type Severity Reaction Status Date / Time trazodone [TRAZODONE] Allergy Severe SHORTNESS Verified 01/14/21 02:23 OF BREATH, GASPING FOR AIR , SOB aspirin [ASPIRIN] Allergy Unknown STOMACH Verified 01/14/21 02:23 UPSET, Nausea, nausa ciprofloxacin [Cipro] Allergy Unknown Rash Verified 01/14/21 02:23 promethazine [Phenergan] Allergy Unknown Hives Verified 01/14/21 02:23 Sulfa (Sulfonamide Allergy Unknown Unknown Verified 01/14/21 02:23 Antibiotics) Review of Systems Review of Systems: Yes all other systems are reviewed and are negative [facility] Past Medical History [facility] Narrative: Social history: Smokes 1/2 pack of cigarettes per day times many years. She denies alcohol use. She does inject heroin and cocaine and states that she relapsed yesterday and used most of the substances as an injection Medical History Adjustment disorder with mixed disturbance of emotions and conduct in remission Asthma Cocaine use disorder, moderate, dependence COPD (chronic obstructive pulmonary disease) Major depression, recurrent MDD (major depressive disorder), recurrent episode, severe Opioid dependence Post traumatic stress disorder PTSD (post-traumatic stress disorder) Social History Social History Household Members: None Household Members Other:: no Housing: Apartment Do you presently have visiting nurse or other home services: Yes 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: never Patient Tobacco Use Status: Current everyday Tobacco user Tobacco use type: Cigarette Cigarette Packs Per Day: 0.5 Cigarettes Per Day: 10.0 Years Smoked: whole life e-Cigarette/Vaping Use: Currently Using Second Hand Smoke Exposure: No Use of substances other than those prescribed or required for medical reasons: Yes Substance Use Type: Crack/Cocaine and Heroin Advance Directives: No Advance Directives Information Provided: No Advance Directives Date on File: 09/20/20 Guardian: No service: No Current occupational status: disabled Sexual orientation: Straight/Heterosexual Physical Exam ED Vital Signs: Vital Signs - 24 hr 04/12/22 21:26 04/12/22 23:46 04/13/22 01:34 Temperature 98.3 F 97.9 F 97.9 F Pulse Rate 71 75 66 Respiratory Rate 18 15 16 Blood Pressure 157/90 H 124/74 92/54 L Pulse Oximetry 98 100 93 Oxygen Delivery Method Room Air Room Air Room Air 04/13/22 05:13 04/13/22 07:40 04/13/22 16:35 Temperature 97.9 F 97.9 F 97.9 F Pulse Rate 62 61 73 Respiratory Rate 18 14 17 Blood Pressure 96/58 L 90/63 100/59 L Pulse Oximetry 97 94 97 Oxygen Delivery Method Room Air Room Air Room Air BMI result Body Mass Index 23.9 Const Other: Awake, alert, female patient, very tremulous, cooperative, pleasant, answers all questions appropriately HENMT Head: Yes normal to inspection, Yes normocephalic and Yes atraumatic Ears: external ears normal General nose exam: Normal external nose present Face and sinus: Yes normal facial exam Mouth: Normal oral and palatal mucosa present Throat: Yes posterior oropharynx normal Eyes General: appearance normal, both eyes and all related structures Pupils: Equal, round and reactive pupils present Neck Neck: Yes normal visual inspection, Yes no lymphadenopathy, Yes trachea midline and Yes supple Chest Chest palpation & inspection: normal inspection of the chest and normal palpation of entire chest wall Resp Effort & Inspection: normal respiratory effort and able to speak in complete sentences Auscultation: clear to auscultation bilaterally Cardio Rate: regular rate Rhythm: regular rhythm Heart sounds: S1 normal heart sound present, S2 normal heart sound present and no murmurs GI Inspection: Yes normal to inspection Palpation (GI): Soft to palpation, nontender and no guarding Auscultation: normal bowel sounds General: Yes no CVA tenderness Back/Spine/Pelvis Back: no CVA tenderness Skin General skin exam: no rashes or lesions noted Neuro Cranial nerves: Yes CN's II-XII intact bilaterally and Yes Equal, round and reactive pupils present Cognition (Neuro): normal cognition Motor exam (neuro): 5/5 motor strength present throughout Extrem General: Yes normal to inspection Psych Appearance: grossly normal Speech and movement: Normal speech and movement present Affect: Anxious affect present Attitude: cooperative Thought process: Normal thought process present Thought content: Normal thought content present Course Course Course Narrative: 52-year-old female who presents emergency department for evaluation of a syncopal episode and withdrawal from benzodiazepines (Klonopin). Patient also has a history of opiate and cocaine use disorder and states she relapsed and she injected both heroin and cocaine yesterday. The patient states she was walking to her kitchen felt lightheaded dizzy and then lowered herself to the ground and passed out. At the time my evaluation she is complaining of withdrawal from opiates otherwise has no other complaints. Vital signs revealed hypertension with a blood pressure of 157/90 otherwise were unremarkable. Patient is tremulous and anxious appearing exam was otherwise normal. I did order a CBC, CMP, troponin, EKG. Patient will be placed on a cardiac and O2 saturation monitor. I did order Klonopin 2 mg orally for the patient's withdrawal symptoms. 2315: Laboratory evaluation CBC and CMP were normal. Troponin was below detectable limits. Twelve EKG was unremarkable. Start physician observation: I did discuss discharge with the patient however she told me that she is now having racing thoughts and over the past several days she has been thinking of hurting herself. She states she has been thinking of jumping in front of a car. She states that this time however she does not think that she will hurt herself but she would like to stay in the emergency department and talk to our crisis counselors about getting further treatment. I did order a COVID-19, RSV and influenza test on her. I will also get a urine drug screen on the patient. Patient will be placed in physician observation until she can be evaluated by our crisis counselors and disposition to be determined. I will obtain a medicine reconciliation and order Klonopin pain for the patient. She does take methadone so need to be confirmed in the morning. Medications Administered Generic Name Dose Route Start Last Admin Trade Name Freq PRN Reason Stop Dose Admin Buspirone HCl 10 mg 04/13/22 15:00 04/13/22 15:03 Buspirone Hcl 10 Mg Tablet PO 10 mg TID ALICIA Administration Clonazepam 0.5 mg 04/12/22 23:19 04/13/22 13:37 Clonazepam 0.5 Mg Tablet PO 0.5 mg BID PRN Administration Anxiety Clonazepam 1 mg 04/12/22 23:30 04/12/22 23:38 Clonazepam 1 Mg Tablet PO 1 mg BEDTIME ALICIA Administration Methadone HCl 85 mg 04/13/22 14:15 04/13/22 15:03 Methadone Hcl 20 Mg/2 Ml Oral.Conc PO 85 mg DAILY ALICIA Administration Sertraline HCl 75 mg 04/13/22 14:15 04/13/22 15:03 Sertraline Hcl 25 Mg Tablet PO 75 mg DAILY ALICIA Administration Discontinued Medications Generic Name Dose Route Start Last Admin Trade Name Ariel PRN Reason Stop Dose Admin Clonazepam 2 mg 04/12/22 21:41 04/12/22 21:53 Clonazepam 1 Mg Tablet PO 04/12/22 21:42 2 mg ONCE STA Administration Medical Decision Making Lab Data Result diagrams: 04/12/22 22:00 04/12/22 22:00 Labs: Lab Results 04/12/22 04/12/22 04/12/22 Range/Units 22:00 22:00 22:00 WBC 5.7 (4.8-10.8) X10*3/uL RBC 4.11 L (4.20-5.50) X10*6/uL Hgb 11.7 L (12.0-16.0) g/dl Hct 35.2 L (37.0-47.0) % MCV 85.6 (80.0-98.0) fL MCH 28.5 (27.0-33.0) pg MCHC 33.2 (31.0-35.0) g/dl RDW 17.1 H (11.0-16.0) % Plt Count 210 (160-400) X10*3/uL MPV 11.4 (9.4-12.3) fL Immature Gran % (Auto) 0.2 (0.0-0.4) % Neut % (Auto) 53.3 (45-73) % Lymph % (Auto) 27.1 (20-40) % Nobles % (Auto) 13.2 H (2-11) % Eos % (Auto) 5.8 H (0-4) % Baso % (Auto) 0.4 (0-2) % Lymph # (Auto) 1.5 (1.2-4.9) X10*3/uL Nobles # (Auto) 0.8 (0.1-1.2) X10*3/uL Eos # (Auto) 0.3 (0.0-0.4) X10*3/uL Baso # (Auto) 0.0 (0.0-0.2) X10*3/uL Abs Immat Gran (auto) 0.01 (0.00-0.03) X10*3/uL Absolute Neuts (auto) 3.0 (2.0-8.3) x10*3/uL Absolute Nucleated RBC 0.000 (0.0-0.012) X10*3/uL Nucleated RBC % (auto) 0.0 (0.0-0.2) /100WBC Sodium 142 (135-145) mmol/L Potassium 3.7 (3.3-5.1) mmol/L Chloride 104 (96-108) mmol/L Carbon Dioxide 25 (22-29) mmol/L Anion Gap 17 (12-20) BUN 13 (9-16) mg/dL Creatinine 0.68 (0.5-1.4) mg/dL Estim Creat Clear Calc 80.0 Estimated GFR > 60 Random Glucose 100 (60-115) mg/dL Calcium 9.9 (8.4-10.2) mg/dL Total Bilirubin 0.5 (0.0-1.0) mg/dL AST 17 (5-31) U/L ALT 12 (0-31) U/L Alkaline Phosphatase 115 D (39-117) U/L Troponin I High Sens < 3.5 (<3.5-17.0) ng/L Total Protein 7.7 (6.5-8.0) g/dL Albumin 4.4 (3.5-5.0) g/dL Urine Opiates Screen (Not Detect) Urine Fentanyl Screen (Not Detect) Ur Barbiturates Screen (Not Detect) Ur Phencyclidine Scrn (Not Detect) Ur Amphetamines Screen (Not Detect) U Benzodiazepines Scrn (Not Detect) Urine Cocaine Screen (Not Detect) U Marijuana (THC) Screen (Not Detect) Influenza Type A (PCR) (Negative) Influenza Type B (PCR) (Negative) RSV RNA Qual (PCR) (Negative) SARS-CoV-2 RNA (RT-PCR) (Negative) 04/12/22 04/13/22 Range/Units 23:52 01:12 WBC (4.8-10.8) X10*3/uL RBC (4.20-5.50) X10*6/uL Hgb (12.0-16.0) g/dl Hct (37.0-47.0) % MCV (80.0-98.0) fL MCH (27.0-33.0) pg MCHC (31.0-35.0) g/dl RDW (11.0-16.0) % Plt Count (160-400) X10*3/uL MPV (9.4-12.3) fL Immature Gran % (Auto) (0.0-0.4) % Neut % (Auto) (45-73) % Lymph % (Auto) (20-40) % Nobles % (Auto) (2-11) % Eos % (Auto) (0-4) % Baso % (Auto) (0-2) % Lymph # (Auto) (1.2-4.9) X10*3/uL Nobles # (Auto) (0.1-1.2) X10*3/uL Eos # (Auto) (0.0-0.4) X10*3/uL Baso # (Auto) (0.0-0.2) X10*3/uL Abs Immat Gran (auto) (0.00-0.03) X10*3/uL Absolute Neuts (auto) (2.0-8.3) x10*3/uL Absolute Nucleated RBC (0.0-0.012) X10*3/uL Nucleated RBC % (auto) (0.0-0.2) /100WBC Sodium (135-145) mmol/L Potassium (3.3-5.1) mmol/L Chloride (96-108) mmol/L Carbon Dioxide (22-29) mmol/L Anion Gap (12-20) BUN (9-16) mg/dL Creatinine (0.5-1.4) mg/dL Estim Creat Clear Calc Estimated GFR Random Glucose (60-115) mg/dL Calcium (8.4-10.2) mg/dL Total Bilirubin (0.0-1.0) mg/dL AST (5-31) U/L ALT (0-31) U/L Alkaline Phosphatase (39-117) U/L Troponin I High Sens (<3.5-17.0) ng/L Total Protein (6.5-8.0) g/dL Albumin (3.5-5.0) g/dL Urine Opiates Screen POSITIVE H (Not Detect) Urine Fentanyl Screen POSITIVE H (Not Detect) Ur Barbiturates Screen Not Detected (Not Detect) Ur Phencyclidine Scrn Not Detected (Not Detect) Ur Amphetamines Screen Not Detected (Not Detect) U Benzodiazepines Scrn POSITIVE H (Not Detect) Urine Cocaine Screen POSITIVE H (Not Detect) U Marijuana (THC) Screen Not Detected (Not Detect) Influenza Type A (PCR) NEGATIVE (Negative) Influenza Type B (PCR) NEGATIVE (Negative) RSV RNA Qual (PCR) NEGATIVE (Negative) SARS-CoV-2 RNA (RT-PCR) NEGATIVE (Negative) Discharge Plan Discharge Clinical Impression: Anxiety Patient Disposition: Still a Patient Prescriptions: No Action buspirone 10 mg tablet 1 tab PO TID sertraline 50 mg tablet 75 mg PO DAILY clonazepam 1 mg tablet 0.5 mg PO BID PRN (Reason: Anxiety) clonazepam 1 mg tablet 1 mg PO BEDTIME Rx Instructions: take 1/2 BID prn for anxiety; take 1 tab at bedtime prn for anxiety methadone [Methadose] 10 mg/mL concentrate 85 mg PO DAILY Rx Instructions: Partial Fill upon patient request. albuterol sulfate [ProAir HFA] 90 mcg/actuation HFA aerosol inhaler 2 puff inhalation Q4H PRN (Reason: wheezing) 30 Days Qty: 6.7 0RF
[2022-04-12] MEDS: clonazePAM 1 MG TABLET 2 MG PO (21:53)
[2022-04-12 22:05] LABS: MANUAL DIFF FLAG NO
[2022-04-12 22:08] LABS: Basophils Percent Auto 0.4 % (0-2); Eosinophils Absolute Auto 0.3 X10*3/uL (0.0-0.4); Eosinophils Percent Auto 5.8 % (0-4); Hematocrit 35.2 % (37.0-47.0); Hemoglobin 11.7 g/dl (12.0-16.0); Imm Gran Abs Auto 0.01 X10*3/uL (0.00-0.03); Imm Gran Pct Auto 0.2 % (0.0-0.4); Lymphocytes Absolute Auto 1.5 X10*3/uL (1.2-4.9); Lymphocytes Percent Auto 27.1 % (20-40); Mean Corpuscular HGB Conc 33.2 g/dl (31.0-35.0); Mean Corpuscular Hemoglobin 28.5 pg (27.0-33.0); Mean Corpuscular Volume 85.6 fL (80.0-98.0); Mean Platelet Volume 11.4 fL (9.4-12.3); Monocytes Absolute Auto 0.8 X10*3/uL (0.1-1.2); Monocytes Percent Auto 13.2 % (2-11); Neutrophils Percent Auto 53.3 % (45-73); Platelet Count 210 X10*3/uL (160-400); Red Blood Count 4.11 X10*6/uL (4.20-5.50); Red Cell Distribution Width 17.1 % (11.0-16.0); White Blood Count 5.7 X10*3/uL (4.8-10.8)
[2022-04-12 22:28] LABS: Alanine Aminotransferase 12 U/L (0-31); Albumin Level 4.4 g/dL (3.5-5.0); Alkaline Phosphatase 115 U/L (39-117); Anion Gap 17 (12-20); Aspartate Amino Transferase 17 U/L (5-31); Blood Urea Nitrogen 13 mg/dL (9-16); Calcium 9.9 mg/dL (8.4-10.2); Carbon Dioxide 25 mmol/L (22-29); Chloride 104 mmol/L (96-108); Estimated Glomerular Filt Rate > 60; Glucose Random 100 mg/dL (60-115); Potassium 3.7 mmol/L (3.3-5.1); Sodium 142 mmol/L (135-145); Total Protein 7.7 g/dL (6.5-8.0)
[2022-04-12 22:31] LABS: Troponin-I High Sensitivity < 3.5 ng/L (<3.5-17.0)
--- NOTE | 2022-04-12 23:26 | PC.NURSE ---
patient alert, oriented x4. tremulous. able to make needs known, uses call sprague appropriately. patient is currently eating a sandwich in bed while watching tv.
[2022-04-12] MEDS: clonazePAM 1 MG TABLET PO (23:38)
[2022-04-12 23:46] VITALS: BP 124/74; PULSE 75; RESP 15; TEMP 36.6; O2SAT 100
[2022-04-13 00:45] LABS: Influenza A PCR NEGATIVE (Negative); Influenza B PCR NEGATIVE (Negative); Resp Syncy Virus RNA Qual PCR NEGATIVE (Negative); SARS COV2 PCR INHOUSE NEGATIVE (Negative)
[2022-04-13 01:14] LABS: Bilirubin Total 0.5 mg/dL (0.0-1.0)
[2022-04-13 01:32] LABS: Amphetamine Screen Urine Not Detected (Not Detect); Barbiturates, Urine Not Detected (Not Detect); Benzodiazepines Screen Urine POSITIVE (Not Detect); Cannabinoid Screen Urine Not Detected (Not Detect); Cocaine Screen Urine POSITIVE (Not Detect); Fentanyl, urine POSITIVE (Not Detect); Opiate Screen Urine POSITIVE (Not Detect); Phencyclidine Screen Urine Not Detected (Not Detect)
[2022-04-13 01:34] VITALS: BP 92/54; PULSE 66; RESP 16; TEMP 36.6; O2SAT 93
--- NOTE | 2022-04-13 02:29 | PC.NURSE ---
patient sleeping. respirations are equal and unlabored..
[2022-04-13 05:13] VITALS: BP 96/58; PULSE 62; RESP 18; TEMP 36.6; O2SAT 97
[2022-04-13 07:40] VITALS: BP 90/63; PULSE 61; RESP 14; TEMP 36.6; O2SAT 94
--- NOTE | 2022-04-13 11:01 | PHA.MEDREC ---
Pharmacy Consult ? Medication Reconciliation Pharmacy has completed the medication reconciliation. Patient reports she was suppose to start setraline but has not picked it up. She stated she is no longer taking fluoxamine mirtazepine or risperidone. She thinks she is suppose to be on buspirone, which has been recently filled. Reports she is suppose to be on klonopin but has not gotten any refills. Ayana Mills, ArielD
--- NOTE | 2022-04-13 11:02 | HE.PHANOTE ---
Methadone Verification I confirmed with LEESA Telles that patient last received methadone 85 mg on 04/12 @ 0299. Ayana Mills, PharmD
--- NOTE | 2022-04-13 11:10 | PC.NURSE ---
smart sheet done by this rn.
--- NOTE | 2022-04-13 11:13 | MHC.RECOVRN ---
Briefly met with pt in main ED prior to move to [facility]. Pt reports recently being admitted psychiatrically in [place] and had been discharged without some prescriptions, including clonazepam. Per Kelly, last clonazepam script filled on 01/30 for a 30 day supply. Pt reports recurrence with substances after discharging from facility, however, is not interested in ATS at this time. Pt is currently on methadone, 85 mg daily at [facility] x 2 months. Pt reports hx 110 mg. Pt reports prolonged QTc and is working with OTP to adjust dose accordingly. Pt reports not taking psychiatric medications since dc from last facility and endorses SI. Pt denies questions or concerns for t/w. CARE Team aware.
[2022-04-13] MEDS: clonazePAM 0.5 MG TABLET PO (13:37)
[2022-04-13] MEDS: Sertraline HCL 25 MG TABLET 75 MG PO (15:03)
[2022-04-13] MEDS: methADONE HCl 20 MG/2 ML ORAL.CONC 85 MG PO (15:03)
[2022-04-13] MEDS: busPIRone HCl 10 MG TABLET PO ×2 (15:03→20:42)
[2022-04-13 16:35] VITALS: BP 100/59; PULSE 73; RESP 17; TEMP 36.6; O2SAT 97
--- NOTE | 2022-04-13 17:00 | MHC.CARE ---
Patient will remain in the ED tonight and CARE Team will follow up tomorrow. She is not on a Section 12A but should meet with a clinician for safety planning if she requests discharge.
[2022-04-13] MEDS: clonazePAM 1 MG TABLET PO (20:42)
[2022-04-13 23:54] VITALS: BP 96/68; PULSE 66; RESP 17; TEMP 36.8; O2SAT 95
--- NOTE | 2022-04-14 06:24 | PC.NURSE ---
Patient slept through the night, no distress observed/reported, behavior non concerning, patient was assessed by care team disposition, patient will be reassessed by care team in the morning, medication compliant, appetite is great and elimination intact, patient was observed/ tremulous, VSS, will continue to monitor.
--- NOTE | 2022-04-14 07:17 | PC.NURSE ---
patient appears to remain asleep at present respirations are even and unlabored patient appears in no distress
[2022-04-14] MEDS: Sertraline HCL 25 MG TABLET 75 MG PO (09:05)
[2022-04-14] MEDS: busPIRone HCl 10 MG TABLET PO ×3 (09:05→20:47)
[2022-04-14] MEDS: methADONE HCl 20 MG/2 ML ORAL.CONC 85 MG PO (09:05)
[2022-04-14] MEDS: clonazePAM 0.5 MG TABLET PO ×2 (09:13→15:04)
[2022-04-14 09:17] VITALS: BP 121/81; PULSE 76; RESP 18; TEMP 36.8; O2SAT 96
[2022-04-14 17:20] VITALS: BP 111/72; PULSE 71; RESP 16; TEMP 35.9; O2SAT 96
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
[2022-04-14] MEDS: hydrOXYzine HCL 25 MG TABLET PO (19:41)
[2022-04-14] MEDS: clonazePAM 1 MG TABLET PO (20:47)
[2022-04-15] MEDS: busPIRone HCl 10 MG TABLET PO (09:24)
[2022-04-15] MEDS: methADONE HCl 20 MG/2 ML ORAL.CONC 85 MG PO (09:24)
[2022-04-15] MEDS: Sertraline HCL 25 MG TABLET 75 MG PO (09:24)
[2022-04-15 09:27] VITALS: BP 117/70; PULSE 77; RESP 18; TEMP 36.3; O2SAT 97
[2022-04-15] MEDS: clonazePAM 0.5 MG TABLET PO ×2 (09:40→16:57)
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
[2022-04-15] MEDS: hydrOXYzine HCL 25 MG TABLET PO ×2 (11:24→14:20)
[2022-04-15] MEDS: busPIRone HCl 5 MG TABLET 15 MG PO ×2 (14:20→19:34)
[2022-04-15 17:01] VITALS: BP 107/66; PULSE 67; RESP 16; TEMP 35.1; O2SAT 96
[2022-04-15] MEDS: clonazePAM 1 MG TABLET PO (19:35)
[2022-04-16] MEDS: busPIRone HCl 5 MG TABLET 15 MG PO ×3 (09:14→20:02)
[2022-04-16] MEDS: methADONE HCl 20 MG/2 ML ORAL.CONC 85 MG PO (09:14)
[2022-04-16 09:21] VITALS: BP 107/60; PULSE 73; RESP 16; TEMP 36.4; O2SAT 96
[2022-04-16] MEDS: clonazePAM 0.5 MG TABLET PO (09:45)
[2022-04-16] MEDS: hydrOXYzine HCL 25 MG TABLET 50 MG PO (13:01)
--- NOTE | 2022-04-16 15:30 | P.PNPSI_ITS ---
Subjective Subjective Date of Service: 04/16/22 Reason For Visit: SI Interim History: late entry note for patient seen on 04/16/22 depressed; passive SI. She informs blog writer that she was recently switched back to Zoloft which had worked well for her in the past but was stopped due to prolonged qtc. She says at last admission at [facility] this was checked to be OK and so it was restarted; she was on it until this past week. Patient says most of her other meds were discontinued. She agrees to remain on remeron for now. Mental Status Exam Mental Status Exam Narrative: Pt is alert and oriented; behavior is Isolative and quiet; patient is not in distress; dressed in hospital attire with unkempt hair and marginal hygiene; mood is described as depressed and affect congruent, downcast; minimal eye contact; Speech is latent, soft; psychomotor retardation present; thought process is goal directed; Thought content is on hopelessness of her situation; otherwise pertinent to relevant topics and without any delusional content, paranoid ideations or grandiosity; +SI; no HI. There is no evidence of perceptual disturbance. Patients insight and judgment are impaired. Diagnostics Vital Signs (24Hr): Vital Signs - 24 hr 04/16/22 19:40 04/17/22 07:52 Temperature 98.1 F Pulse Rate 72 62 Respiratory Rate 16 Blood Pressure 107/65 85/54 L Pulse Oximetry 95 Oxygen Delivery Method Room Air BMI result Body Mass Index 23.9 Labs Results: 04/12/22 22:00 04/12/22 22:00 Medications Medications Current Medications Acetaminophen (Acetaminophen 325 Mg Tablet) 650 mg PO Q6H PRN PRN Reason: Headache/Pain Mild Scale (1-3) Al Hydroxide/Mg Hydroxide (Magnesium Hydrox/Alum Hydrox 30 Ml Oral.Susp) 30 ml PO Q6H PRN PRN Reason: Heartburn/Nausea Albuterol Sulfate (Albuterol Sulfate 90 Mcg 8 Gm Inhaler) 2 puff INHALE Q4H PRN PRN Reason: wheezing Buspirone HCl (Buspirone Hcl 5 Mg Tablet) 15 mg PO TID ALICIA Last Admin: 04/17/22 08:51 Dose: 15 mg Clonazepam (Clonazepam 0.5 Mg Tablet) 0.5 mg PO BID PRN PRN Reason: Anxiety Last Admin: 04/17/22 08:51 Dose: 0.5 mg Clonazepam (Clonazepam 1 Mg Tablet) 1 mg PO BEDTIME [facility] Last Admin: 04/16/22 20:03 Dose: 1 mg Hydroxyzine HCl (Hydroxyzine Hcl 25 Mg Tablet) 50 mg PO Q6H PRN PRN Reason: Anxiety Last Admin: 04/16/22 13:01 Dose: 50 mg Magnesium Hydroxide (Milk Of Magnesia 30 Ml Oral.Susp) 30 ml PO DAILY PRN PRN Reason: Constipation Methadone HCl (Methadone Hcl 20 Mg/2 Ml Oral.Conc) 85 mg PO DAILY [facility] Last Admin: 04/17/22 08:53 Dose: 85 mg Mirtazapine (Mirtazapine 7.5 Mg Tablet) 7.5 mg PO BEDTIME [facility] Last Admin: 04/16/22 20:03 Dose: 7.5 mg Multi-Ingred Cream/Lotion/Oil/Oint (Mineral Oil/Petrolatum,White 106 Gm Tube) 1 appl TOPICAL TID PRN; Protocol PRN Reason: dry skin Nicotine (Nicotine 21 Mg Patch.Td24) 21 mg TRANSDERMA DAILY PRN PRN Reason: nicotine craving Nicotine Polacrilex (Nicotine Polacrilex 2 Mg Gum) 4 mg BUCCAL Q2H PRN PRN Reason: Nicotine Cravings Quetiapine Fumarate (Quetiapine Fumarate 100 Mg Tablet) 100 mg PO BEDTIME PRN PRN Reason: insomnia Sertraline HCl (Sertraline Hcl 25 Mg Tablet) 75 mg PO DAILY [facility] Last Admin: 04/17/22 08:51 Dose: 75 mg Allergies Allergies Allergy/AdvReac Type Severity Reaction Status Date / Time trazodone [TRAZODONE] Allergy Severe SHORTNESS Verified 01/14/21 02:23 OF BREATH, GASPING FOR AIR , SOB aspirin [ASPIRIN] Allergy Unknown STOMACH Verified 01/14/21 02:23 UPSET, Nausea, nausa ciprofloxacin [Cipro] Allergy Unknown Rash Verified 01/14/21 02:23 promethazine [Phenergan] Allergy Unknown Hives Verified 01/14/21 02:23 Sulfa (Sulfonamide Allergy Unknown Unknown Verified 01/14/21 02:23 Antibiotics) Assessment & Plan Assessment & Plan (1) MDD (major depressive disorder), recurrent episode, severe: Status: Acute Code(s): F33.2 - Major depressive disorder, recurrent severe without psychotic features (2) PTSD (post-traumatic stress disorder): Status: Acute Code(s): F43.10 - Post-traumatic stress disorder, unspecified (3) Opioid dependence: Status: Acute Code(s): F11.20 - Opioid dependence, uncomplicated (4) Cocaine use disorder, moderate, dependence: Status: Acute Code(s): F14.20 - Cocaine dependence, uncomplicated Plan Patient is a 52-year-old female with hx of depression, anxiety, opioid and cocaine abuse, currently on methadone, who recently discharged from [place] in psych (and M5 on Feb 20) who presents to the ED following a near syncopal episode at home; on presentation, she reports she is anxious, depressed and suicidal in face of being off Clonazepam and having relapsed on opiates and cocaine. Withdrawal from benzos mild given low dose -patient remains with suicidal ideation and is feeling hopeless. Likely contributory is patients hx of trauma, including loss of a child, that seems to be only partially processed and of which she is reticent about during admissions; patient has few community supports and has other contributing psychosocial stressors such as possible eviction. She agrees to restart her medication regimen at last M 5 admission. 04/16 depressed, talking little, keeping to her self. Passive SI; wants to be back on Zoloft and dc fluvox/risperdal. Says did best on Zoloft; will restart and check qtc PLAN: CV Q 5 minute checks RESTART Zoloft 75mg; will titrate (pt thinks she's been on 200mg in past) -will check qtc; in past, she reports Zoloft caused prolonged qtc Contnue mirtazapine 7.5mg qhs DC fluvoxamine DC Risperdal continue BuSpar 15 mg t.i.d. Continue clonazepam 0.5 mg b.i.d. p.r.n. and 1 mg q.h.s.(has been on this dose for years) Continue Seroquel 100mg qhs prn for insomnia I spent minutes with the patient and/or on the patient floor today, greater than?50% of which was spent counseling/coordinating care. Patient educated on: diagnosis and medication risk/benefits Informed Consent: understands Reason for contiued inpatient stay Substantial Risk for: rapid decompensation
[2022-04-16] MEDS: Sertraline HCL 25 MG TABLET 75 MG PO (17:28)
[2022-04-16 19:40] VITALS: BP 107/65; PULSE 72
[2022-04-16] MEDS: Mirtazapine 7.5 MG TABLET PO (20:03)
[2022-04-16] MEDS: clonazePAM 1 MG TABLET PO (20:03)
[2022-04-17 07:52] VITALS: BP 85/54; PULSE 62; RESP 16; TEMP 36.7; O2SAT 95
[2022-04-17] MEDS: busPIRone HCl 5 MG TABLET 15 MG PO ×3 (08:51→19:53)
[2022-04-17] MEDS: Sertraline HCL 25 MG TABLET 75 MG PO (08:51)
[2022-04-17] MEDS: clonazePAM 0.5 MG TABLET PO ×2 (08:51→18:17)
[2022-04-17] MEDS: methADONE HCl 20 MG/2 ML ORAL.CONC 85 MG PO (08:53)
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
[2022-04-17] MEDS: hydrOXYzine HCL 25 MG TABLET 50 MG PO (12:19)
[2022-04-17 18:00] VITALS: BP 110/65; PULSE 80
[2022-04-17] MEDS: clonazePAM 1 MG TABLET PO (19:53)
[2022-04-17] MEDS: Mirtazapine 7.5 MG TABLET PO (19:53)
--- NOTE | 2022-04-18 | ECG_ITS ---
Test Reason : bradycardia Blood Pressure : / mmHG Vent. Rate : 053 BPM Atrial Rate : 053 BPM P-R Int : 166 ms QRS Dur : 078 ms QT Int : 506 ms P-R-T Axes : -17 030 032 degrees QTc Int : 474 ms Sinus bradycardia Otherwise normal ECG When compared with ECG of 12-APR-2022 21:46, No significant change was found Referred By: Bhupinder Chavez Electronically Signed By:JEN TAYLOR
[2022-04-18] MEDS: QUEtiapine Fumarate 100 MG TABLET PO (00:47)
[2022-04-18] MEDS: hydrOXYzine HCL 25 MG TABLET 50 MG PO ×2 (07:00→17:28)
[2022-04-18] MEDS: Sertraline HCL 25 MG TABLET 75 MG PO (08:57)
[2022-04-18] MEDS: methADONE HCl 20 MG/2 ML ORAL.CONC 85 MG PO (08:58)
[2022-04-18] MEDS: busPIRone HCl 5 MG TABLET 15 MG PO ×3 (08:58→22:44)
[2022-04-18 09:06] VITALS: BP 98/64; PULSE 74; TEMP 36.6; O2SAT 96
--- NOTE | 2022-04-18 09:42 | HO.PSYCHPN ---
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 Mental Status Exam Mental Status Exam Narrative: Mental Status Exam Narrative: Appearance: Casually dressed Behavior: Cooperative appropriate psychomotor: Within normal limits Speech: Normal volume and prosody Thought proccess logical poverty of content Thought content: Some hopelessness helplessness denies self-harm Mood: Depressed Affect: Constricted SI:denies HI:denies VH/AH:none Delusions: None Insight/judgment: Good insight and judgment Memory/cog: Intact Diagnostics Vital Signs (24Hr): Vital Signs - 24 hr 04/17/22 18:00 04/18/22 09:06 Temperature 97.9 F Pulse Rate 80 74 Blood Pressure 110/65 98/64 Pulse Oximetry 96 Oxygen Delivery Method Room Air BMI result Body Mass Index 23.9 Labs Results: 04/12/22 22:00 04/12/22 22:00 Medications Medications Current Medications Acetaminophen (Acetaminophen 325 Mg Tablet) 650 mg PO Q6H PRN PRN Reason: Headache/Pain Mild Scale (1-3) Al Hydroxide/Mg Hydroxide (Magnesium Hydrox/Alum Hydrox 30 Ml Oral.Susp) 30 ml PO Q6H PRN PRN Reason: Heartburn/Nausea Albuterol Sulfate (Albuterol Sulfate 90 Mcg 8 Gm Inhaler) 2 puff INHALE Q4H PRN PRN Reason: wheezing Buspirone HCl (Buspirone Hcl 5 Mg Tablet) 15 mg PO TID REPLACED BY [facility] Last Admin: 04/18/22 08:58 Dose: 15 mg Hydroxyzine HCl (Hydroxyzine Hcl 25 Mg Tablet) 50 mg PO Q6H PRN PRN Reason: Anxiety Last Admin: 04/18/22 07:00 Dose: 50 mg Magnesium Hydroxide (Milk Of Magnesia 30 Ml Oral.Susp) 30 ml PO DAILY PRN PRN Reason: Constipation Methadone HCl (Methadone Hcl 20 Mg/2 Ml Oral.Conc) 85 mg PO DAILY REPLACED BY [facility] Last Admin: 04/18/22 08:58 Dose: 85 mg Mirtazapine (Mirtazapine 7.5 Mg Tablet) 7.5 mg PO BEDTIME REPLACED BY [facility] Last Admin: 04/17/22 19:53 Dose: 7.5 mg Multi-Ingred Cream/Lotion/Oil/Oint (Mineral Oil/Petrolatum,White 106 Gm Tube) 1 appl TOPICAL TID PRN; Protocol PRN Reason: dry skin Nicotine (Nicotine 21 Mg Patch.Td24) 21 mg TRANSDERMA DAILY PRN PRN Reason: nicotine craving Nicotine Polacrilex (Nicotine Polacrilex 2 Mg Gum) 4 mg BUCCAL Q2H PRN PRN Reason: Nicotine Cravings Quetiapine Fumarate (Quetiapine Fumarate 100 Mg Tablet) 100 mg PO BEDTIME PRN PRN Reason: insomnia Last Admin: 04/18/22 00:47 Dose: 100 mg Sertraline HCl (Sertraline Hcl 25 Mg Tablet) 75 mg PO DAILY [facility] Last Admin: 04/18/22 08:57 Dose: 75 mg Allergies Allergies Allergy/AdvReac Type Severity Reaction Status Date / Time trazodone [TRAZODONE] Allergy Severe SHORTNESS Verified 01/14/21 02:23 OF BREATH, GASPING FOR AIR , SOB aspirin [ASPIRIN] Allergy Unknown STOMACH Verified 01/14/21 02:23 UPSET, Nausea, nausa ciprofloxacin [Cipro] Allergy Unknown Rash Verified 01/14/21 02:23 promethazine [Phenergan] Allergy Unknown Hives Verified 01/14/21 02:23 Sulfa (Sulfonamide Allergy Unknown Unknown Verified 01/14/21 02:23 Antibiotics) Assessment & Plan Assessment & Plan (1) MDD (major depressive disorder), recurrent episode, severe: Status: Acute Code(s): F33.2 - Major depressive disorder, recurrent severe without psychotic features (2) PTSD (post-traumatic stress disorder): Status: Acute Code(s): F43.10 - Post-traumatic stress disorder, unspecified (3) Opioid dependence: Status: Acute Code(s): F11.20 - Opioid dependence, uncomplicated (4) Cocaine use disorder, moderate, dependence: Status: Acute Code(s): F14.20 - Cocaine dependence, uncomplicated Plan Patient is a 52-year-old female with hx of depression, anxiety, opioid and cocaine abuse, currently on methadone, who recently discharged from [place] in psych (and M5 on Feb 20) who presents to the ED following a near syncopal episode at home; on presentation, she reports she is anxious, depressed and suicidal in face of being off Clonazepam and having relapsed on opiates and cocaine. Withdrawal from benzos mild given low dose -patient remains with suicidal ideation and is feeling hopeless. Likely contributory is patients hx of trauma, including loss of a child, that seems to be only partially processed and of which she is reticent about during admissions; patient has few community supports and has other contributing psychosocial stressors such as possible eviction. She agrees to restart her medication regimen at last M 5 admission. PLAN: CV Q 5 minute checks Restart mirtazapine 7.5mg qhs Restart fluvoxamine 50 mg q.h.s. Restart Risperdal 0.5 mg b.i.d. Restart BuSpar 15 mg t.i.d. Restart clonazepam 0.5 mg b.i.d. p.r.n. and 1 mg q.h.s.(has been on this dose for years) restart Seroquel 100mg qhs prn for insomnia 04/18/2022 Monitor EKG on methadone mirtazapine Seroquel p.r.n. has increase QTC will lower Seroquel p.r.n. I spent minutes with the patient and/or on the patient floor today, greater than?50% of which was spent counseling/coordinating care. Reason for contiued inpatient stay Substantial Risk for: harm to self
[2022-04-18] MEDS: clonazePAM 0.5 MG TABLET PO (10:18)
[2022-04-18 17:30] VITALS: BP 101/50; PULSE 73; TEMP 36.7
[2022-04-18] MEDS: clonazePAM 1 MG TABLET PO (22:43)
[2022-04-18] MEDS: Mirtazapine 15 MG TABLET PO (22:44)
[2022-04-19 06:00] VITALS: BP 90/50; PULSE 61; RESP 15; TEMP 36.7; O2SAT 97
[2022-04-19] MEDS: Sertraline HCL 25 MG TABLET 75 MG PO (08:28)
[2022-04-19] MEDS: methADONE HCl 20 MG/2 ML ORAL.CONC 85 MG PO (08:28)
[2022-04-19] MEDS: busPIRone HCl 5 MG TABLET 15 MG PO ×3 (08:28→20:38)
[2022-04-19 09:57] VITALS: BP 119/59
[2022-04-19] MEDS: clonazePAM 0.5 MG TABLET PO ×2 (09:59→16:34)
[2022-04-19] MEDS: hydrOXYzine HCL 25 MG TABLET 50 MG PO (13:31)
[2022-04-19 16:44] VITALS: BP 97/66; PULSE 65; RESP 18; TEMP 36.7; O2SAT 97
[2022-04-19] MEDS: Mirtazapine 15 MG TABLET PO (20:38)
[2022-04-19] MEDS: clonazePAM 1 MG TABLET PO (20:39)
--- NOTE | 2022-04-19 23:27 | HO.PSYCHPN ---
Subjective Subjective Date of Service: 04/19/22 Reason For Visit: SI Subjective Notes: Conditional Voluntary Interim History: The patient is withdrawn dysphoric spending much of her time in bed EKG reviewed QTC relatively unchanged from previous Seroquel had been lowered to 50 mg Mental Status Exam Mental Status Exam Narrative: Mental Status Exam Narrative: Appearance: Casually dressed Behavior: Cooperative appropriate psychomotor: Within normal limits Speech: Normal volume and prosody Thought proccess logical poverty of content Thought content: Some hopelessness helplessness denies self-harm Mood: Depressed Affect: Constricted SI:denies in this setting HI:denies VH/AH:none Delusions: None Insight/judgment: Good insight and judgment Memory/cog: Intact Diagnostics Vital Signs (24Hr): Vital Signs - 24 hr 04/19/22 06:00 04/19/22 09:57 04/19/22 16:44 Temperature 98.0 F 98.1 F Pulse Rate 61 65 Respiratory Rate 15 18 Blood Pressure 90/50 L 119/59 L 97/66 Pulse Oximetry 97 97 Oxygen Delivery Method Room Air Room Air BMI result Body Mass Index 23.9 Labs Results: 04/12/22 22:00 04/12/22 22:00 Medications Medications Current Medications Acetaminophen (Acetaminophen 325 Mg Tablet) 650 mg PO Q6H PRN PRN Reason: Headache/Pain Mild Scale (1-3) Al Hydroxide/Mg Hydroxide (Magnesium Hydrox/Alum Hydrox 30 Ml Oral.Susp) 30 ml PO Q6H PRN PRN Reason: Heartburn/Nausea Albuterol Sulfate (Albuterol Sulfate 90 Mcg 8 Gm Inhaler) 2 puff INHALE Q4H PRN PRN Reason: wheezing Buspirone HCl (Buspirone Hcl 5 Mg Tablet) 15 mg PO TID [facility] Last Admin: 04/19/22 20:38 Dose: 15 mg Clonazepam (Clonazepam 0.5 Mg Tablet) 0.5 mg PO BID PRN PRN Reason: anxiety Last Admin: 04/19/22 16:34 Dose: 0.5 mg Clonazepam (Clonazepam 1 Mg Tablet) 1 mg PO BEDTIME [facility] Last Admin: 04/19/22 20:39 Dose: 1 mg Hydroxyzine HCl (Hydroxyzine Hcl 25 Mg Tablet) 50 mg PO Q6H PRN PRN Reason: Anxiety Last Admin: 04/19/22 13:31 Dose: 50 mg Magnesium Hydroxide (Milk Of Magnesia 30 Ml Oral.Susp) 30 ml PO DAILY PRN PRN Reason: Constipation Methadone HCl (Methadone Hcl 20 Mg/2 Ml Oral.Conc) 85 mg PO DAILY [facility] Last Admin: 04/19/22 08:28 Dose: 85 mg Mirtazapine (Mirtazapine 15 Mg Tablet) 15 mg PO BEDTIME [facility] Last Admin: 04/19/22 20:38 Dose: 15 mg Multi-Ingred Cream/Lotion/Oil/Oint (Mineral Oil/Petrolatum,White 106 Gm Tube) 1 appl TOPICAL TID PRN; Protocol PRN Reason: dry skin Nicotine (Nicotine 21 Mg Patch.Td24) 21 mg TRANSDERMA DAILY PRN PRN Reason: nicotine craving Nicotine Polacrilex (Nicotine Polacrilex 2 Mg Gum) 4 mg BUCCAL Q2H PRN PRN Reason: Nicotine Cravings Quetiapine Fumarate (Quetiapine Fumarate 50 Mg Tablet) 50 mg PO BEDTIME PRN PRN Reason: insomnia Sertraline HCl (Sertraline Hcl 25 Mg Tablet) 75 mg PO DAILY [facility] Last Admin: 04/19/22 08:28 Dose: 75 mg Allergies Allergies Allergy/AdvReac Type Severity Reaction Status Date / Time trazodone [TRAZODONE] Allergy Severe SHORTNESS Verified 01/14/21 02:23 OF BREATH, GASPING FOR AIR , SOB aspirin [ASPIRIN] Allergy Unknown STOMACH Verified 01/14/21 02:23 UPSET, Nausea, nausa ciprofloxacin [Cipro] Allergy Unknown Rash Verified 01/14/21 02:23 promethazine [Phenergan] Allergy Unknown Hives Verified 01/14/21 02:23 Sulfa (Sulfonamide Allergy Unknown Unknown Verified 01/14/21 02:23 Antibiotics) Assessment & Plan Assessment & Plan (1) MDD (major depressive disorder), recurrent episode, severe: Status: Acute Code(s): F33.2 - Major depressive disorder, recurrent severe without psychotic features (2) PTSD (post-traumatic stress disorder): Status: Acute Code(s): F43.10 - Post-traumatic stress disorder, unspecified (3) Opioid dependence: Status: Acute Code(s): F11.20 - Opioid dependence, uncomplicated (4) Cocaine use disorder, moderate, dependence: Status: Acute Code(s): F14.20 - Cocaine dependence, uncomplicated Plan Patient is a 52-year-old female with hx of depression, anxiety, opioid and cocaine abuse, currently on methadone, who recently discharged from [place] in psych (and M5 on Feb 20) who presents to the ED following a near syncopal episode at home; on presentation, she reports she is anxious, depressed and suicidal in face of being off Clonazepam and having relapsed on opiates and cocaine. Withdrawal from benzos mild given low dose -patient remains with suicidal ideation and is feeling hopeless. Likely contributory is patients hx of trauma, including loss of a child, that seems to be only partially processed and of which she is reticent about during admissions; patient has few community supports and has other contributing psychosocial stressors such as possible eviction. She agrees to restart her medication regimen at last 5 admission. PLAN: CV Q 5 minute checks Restart mirtazapine 7.5mg qhs Restart fluvoxamine 50 mg q.h.s. Restart Risperdal 0.5 mg b.i.d. Restart BuSpar 15 mg t.i.d. Restart clonazepam 0.5 mg b.i.d. p.r.n. and 1 mg q.h.s.(has been on this dose for years) restart Seroquel 100mg qhs prn for insomnia 04/18/2022 Monitor EKG on methadone mirtazapine Seroquel p.r.n. has increase QTC will lower Seroquel p.r.n. 04/19/2022 Patient seen in psychiatric follow-up case reviewed with nursing staff. EKG was relatively stable QTC for 80s Seroquel lowered to 50 mg mirtazapine does have more of a tendency to increase QTC continue to monitor patient continues on methadone depressed withdrawn less agitation I spent minutes with the patient and/or on the patient floor today, greater than?50% of which was spent counseling/coordinating care. Reason for contiued inpatient stay Substantial Risk for: harm to self
[2022-04-20] MEDS: methADONE HCl 20 MG/2 ML ORAL.CONC 85 MG PO (08:32)
[2022-04-20] MEDS: busPIRone HCl 5 MG TABLET 15 MG PO ×3 (08:33→20:13)
[2022-04-20] MEDS: Sertraline HCL 25 MG TABLET 75 MG PO (08:33)
[2022-04-20 08:52] VITALS: BP 112/58; PULSE 65; TEMP 36.7; O2SAT 96
--- NOTE | 2022-04-20 08:53 | P.PNPSI_ITS ---
Subjective Subjective Date of Service: 04/20/22 Reason For Visit: SI Interim History: pt says she's feeling a little better though still depressed. SI comes and goes, but less intense. Pt is more engaged in conversation, talking more. Reports poor sleep and of note Seroquel was lowered, ostensibly to help reduce risk of prolonged QTc. At this point will increase back to 100mg (since low risk) since she feels sleep is more important and risk is low, to which brief writer agrees (will do serial EKG's). Pt mentions concern about TSH and brief writer will order lab. Pt relieved that housing court got continuance. some tongue fasiculations noted and brief writer discussed seroquel and risks of TD as well as possible tx; pt wants to continue with Seroquel for now; does not want to add any meds Mental Status Exam Mental Status Exam Narrative: Pt is alert and oriented; behavior is cooperative, more engaged; patient is not in distress; dressed in hospital attire with unkempt hair and marginal hygiene; mood is described as depressed and affect congruent, downcast but a little brighter; adequatre eye contact; Speech is regular rate, volume and prosody; no longer latent; some tongue fasiculations present; still some psychomotor retardation present; thought process is goal directed; Thought content is treatment, worries about eviction; otherwise pertinent to relevant topics and w ithout any delusional content, paranoid ideations or grandiosity; intermittent SI; no HI. There is no evidence of perceptual disturbance. Patients insight and judgment are impaired but improving. Diagnostics Vital Signs (24Hr): Vital Signs - 24 hr 04/19/22 09:57 04/19/22 16:44 04/20/22 08:52 Temperature 98.1 F 98.0 F Pulse Rate 65 65 Respiratory Rate 18 Blood Pressure 119/59 L 97/66 112/58 L Pulse Oximetry 97 96 Oxygen Delivery Method Room Air Room Air BMI result Body Mass Index 23.9 Labs Results: 04/12/22 22:00 04/12/22 22:00 Medications Medications Current Medications Acetaminophen (Acetaminophen 325 Mg Tablet) 650 mg PO Q6H PRN PRN Reason: Headache/Pain Mild Scale (1-3) Al Hydroxide/Mg Hydroxide (Magnesium Hydrox/Alum Hydrox 30 Ml Oral.Susp) 30 ml PO Q6H PRN PRN Reason: Heartburn/Nausea Albuterol Sulfate (Albuterol Sulfate 90 Mcg 8 Gm Inhaler) 2 puff INHALE Q4H PRN PRN Reason: wheezing Buspirone HCl (Buspirone Hcl 5 Mg Tablet) 15 mg PO TID [facility] Last Admin: 04/20/22 08:33 Dose: 15 mg Clonazepam (Clonazepam 0.5 Mg Tablet) 0.5 mg PO BID PRN PRN Reason: anxiety Last Admin: 04/19/22 16:34 Dose: 0.5 mg Clonazepam (Clonazepam 1 Mg Tablet) 1 mg PO BEDTIME [facility] Last Admin: 04/19/22 20:39 Dose: 1 mg Hydroxyzine HCl (Hydroxyzine Hcl 25 Mg Tablet) 50 mg PO Q6H PRN PRN Reason: Anxiety Last Admin: 04/19/22 13:31 Dose: 50 mg Magnesium Hydroxide (Milk Of Magnesia 30 Ml Oral.Susp) 30 ml PO DAILY PRN PRN Reason: Constipation Methadone HCl (Methadone Hcl 20 Mg/2 Ml Oral.Conc) 85 mg PO DAILY [facility] Last Admin: 04/20/22 08:32 Dose: 85 mg Mirtazapine (Mirtazapine 15 Mg Tablet) 15 mg PO BEDTIME [facility] Last Admin: 04/19/22 20:38 Dose: 15 mg Multi-Ingred Cream/Lotion/Oil/Oint (Mineral Oil/Petrolatum,White 106 Gm Tube) 1 appl TOPICAL TID PRN; Protocol PRN Reason: dry skin Nicotine (Nicotine 21 Mg Patch.Td24) 21 mg TRANSDERMA DAILY PRN PRN Reason: nicotine craving Nicotine Polacrilex (Nicotine Polacrilex 2 Mg Gum) 4 mg BUCCAL Q2H PRN PRN Reason: Nicotine Cravings Quetiapine Fumarate (Quetiapine Fumarate 50 Mg Tablet) 50 mg PO BEDTIME PRN PRN Reason: insomnia Sertraline HCl (Sertraline Hcl 25 Mg Tablet) 75 mg PO DAILY [facility] Last Admin: 04/20/22 08:33 Dose: 75 mg Allergies Allergies Allergy/AdvReac Type Severity Reaction Status Date / Time trazodone [TRAZODONE] Allergy Severe SHORTNESS Verified 01/14/21 02:23 OF BREATH, GASPING FOR AIR , SOB aspirin [ASPIRIN] Allergy Unknown STOMACH Verified 01/14/21 02:23 UPSET, Nausea, nausa ciprofloxacin [Cipro] Allergy Unknown Rash Verified 01/14/21 02:23 promethazine [Phenergan] Allergy Unknown Hives Verified 01/14/21 02:23 Sulfa (Sulfonamide Allergy Unknown Unknown Verified 01/14/21 02:23 Antibiotics) Assessment & Plan Assessment & Plan (1) MDD (major depressive disorder), recurrent episode, severe: Status: Acute Code(s): F33.2 - Major depressive disorder, recurrent severe without psychotic features (2) PTSD (post-traumatic stress disorder): Status: Acute Code(s): F43.10 - Post-traumatic stress disorder, unspecified (3) Opioid dependence: Status: Acute Code(s): F11.20 - Opioid dependence, uncomplicated (4) Cocaine use disorder, moderate, dependence: Status: Acute Code(s): F14.20 - Cocaine dependence, uncomplicated Plan Patient is a 52-year-old female with hx of depression, anxiety, opioid and cocaine abuse, currently on methadone, who recently discharged from [place] in psych (and M5 on Feb 20) who presents to the ED following a near syncopal episode at home; on presentation, she reports she is anxious, depressed and suicidal in face of being off Clonazepam and having relapsed on opiates and cocaine. Withdrawal from benzos mild given low dose -patient remains with suicidal ideation and is feeling hopeless. Likely contributory is patients hx of trauma, including loss of a child, that seems to be only partially processed and of which she is reticent about during adm issions; patient has few community supports and has other contributing psychosocial stressors such as possible eviction. ? She agrees to restart her medication regimen at last M 5 admission. 04/16 depressed, talking little, keeping to her self. Passive SI; wants to be back on Zoloft and dc fluvox/risperdal. Says did best on Zoloft; will restart and check qtc 04/18/2022 Monitor EKG on methadone mirtazapine Seroquel p.r.n. has increase QTC will lower Seroquel p.r.n. 04/20 discussed risks of Qtc and contributing meds; pt prefers increased seroquel to 100mg for now to which brief writer agrees since risks are low; discussed hx and pt denies any cardiac hx at all (in rare cases of prolonged Qtc becoming torsades, most had underlying cardiac issues). pt attending groups possibly some TD; discussed w/ patient who understands but wants to continue w/ meds PLAN: CV? Q 5 minute checks? Increased Zoloft 100mg; will titrate; serial EKG (pt thinks she's been on 200mg in past) -Serial EKG to check qtc; in past, she reports Zoloft caused prolonged qtc lower back to mirtazapine 7.5mg qhs (pt said had bad dreams when raised) DC fluvoxamine? DC Risperdal? continue BuSpar 15 mg t.i.d. Continue clonazepam 0.5 mg b.i.d. p.r.n. and 1 mg q.h.s.(has been on this dose for years) Continue Seroquel 100mg qhs prn for insomnia (back to this dose since poor sleep); will monitior EKG I spent minutes with the patient and/or on the patient floor today, greater than?50% of which was spent counseling/coordinating care. Patient educated on: diagnosis, medication risk/benefits and medical condition Informed Consent: understands Reason for contiued inpatient stay Substantial Risk for: rapid decompensation
[2022-04-20] MEDS: clonazePAM 0.5 MG TABLET PO ×2 (09:51→16:26)
[2022-04-20] MEDS: Sertraline HCL 25 MG TABLET PO (09:51)
[2022-04-20] MEDS: hydrOXYzine HCL 25 MG TABLET 50 MG PO (12:37)
[2022-04-20 19:55] VITALS: BP 105/62; PULSE 61; TEMP 36.4
[2022-04-20] MEDS: clonazePAM 1 MG TABLET PO (20:14)
[2022-04-20] MEDS: Mirtazapine 7.5 MG TABLET PO (20:14)
[2022-04-20] MEDS: QUEtiapine Fumarate 100 MG TABLET PO (21:55)
[2022-04-21] MEDS: busPIRone HCl 5 MG TABLET 15 MG PO ×3 (09:00→20:35)
[2022-04-21] MEDS: Sertraline HCL 100 MG TABLET PO (09:00)
[2022-04-21] MEDS: methADONE HCl 20 MG/2 ML ORAL.CONC 85 MG PO (09:01)
[2022-04-21] MEDS: clonazePAM 0.5 MG TABLET PO ×2 (09:30→16:08)
[2022-04-21 11:18] VITALS: BP 77/53; PULSE 70; TEMP 36.6; O2SAT 95
--- NOTE | 2022-04-21 11:27 | HO.PSYCHPN ---
Subjective Subjective Date of Service: 04/21/22 Reason For Visit: SI Interim History: remains depressed, downcaste, but working on it, going to groups, talking to staff. Discussed medications and she wonders if Clonidine could help w/ sleep. Intermittent sI. Mental Status Exam Mental Status Exam Narrative: Pt is alert and oriented; behavior is cooperative, more engaged; patient is not in distress; dressed in hospital attire with unkempt hair and marginal hygiene; mood is described as depressed and affect congruent, downcast but a little brighter; adequatre eye contact; Speech is regular rate, volume and prosody; no longer latent; some tongue fasiculations present; still some psychomotor retardation present; thought process is goal directed; Thought content is treatment, worries about eviction; otherwise pertinent to relevant topics and without any delusional content, paranoid ideations or grandiosity; intermittent SI; no HI. There is no evidence of perceptual disturbance. Patients insight and judgment are impaired but improving. Diagnostics Vital Signs (24Hr): Vital Signs - 24 hr 04/20/22 19:55 Temperature 97.5 F Pulse Rate 61 Blood Pressure 105/62 BMI result Body Mass Index 23.9 Labs Results: 04/12/22 22:00 04/12/22 22:00 Medications Medications Current Medications Acetaminophen (Acetaminophen 325 Mg Tablet) 650 mg PO Q6H PRN PRN Reason: Headache/Pain Mild Scale (1-3) Al Hydroxide/Mg Hydroxide (Magnesium Hydrox/Alum Hydrox 30 Ml Oral.Susp) 30 ml PO Q6H PRN PRN Reason: Heartburn/Nausea Albuterol Sulfate (Albuterol Sulfate 90 Mcg 8 Gm Inhaler) 2 puff INHALE Q4H PRN PRN Reason: wheezing Buspirone HCl (Buspirone Hcl 5 Mg Tablet) 15 mg PO TID [facility] Last Admin: 04/21/22 09:00 Dose: 15 mg Clonazepam (Clonazepam 0.5 Mg Tablet) 0.5 mg PO BID PRN PRN Reason: anxiety Last Admin: 04/21/22 09:30 Dose: 0.5 mg Clonazepam (Clonazepam 1 Mg Tablet) 1 mg PO BEDTIME [facility] Last Admin: 04/20/22 20:14 Dose: 1 mg Hydroxyzine HCl (Hydroxyzine Hcl 25 Mg Tablet) 50 mg PO Q6H PRN PRN Reason: Anxiety Last Admin: 04/20/22 12:37 Dose: 50 mg Magnesium Hydroxide (Milk Of Magnesia 30 Ml Oral.Susp) 30 ml PO DAILY PRN PRN Reason: Constipation Methadone HCl (Methadone Hcl 20 Mg/2 Ml Oral.Conc) 85 mg PO DAILY [facility] Last Admin: 04/21/22 09:01 Dose: 85 mg Mirtazapine (Mirtazapine 7.5 Mg Tablet) 7.5 mg PO BEDTIME [facility] Last Admin: 04/20/22 20:14 Dose: 7.5 mg Multi-Ingred Cream/Lotion/Oil/Oint (Mineral Oil/Petrolatum,White 106 Gm Tube) 1 appl TOPICAL TID PRN; Protocol PRN Reason: dry skin Nicotine (Nicotine 21 Mg Patch.Td24) 21 mg TRANSDERMA DAILY PRN PRN Reason: nicotine craving Nicotine Polacrilex (Nicotine Polacrilex 2 Mg Gum) 4 mg BUCCAL Q2H PRN PRN Reason: Nicotine Cravings Quetiapine Fumarate (Quetiapine Fumarate 100 Mg Tablet) 100 mg PO BEDTIME PRN PRN Reason: insomnia Last Admin: 04/20/22 21:55 Dose: 100 mg Sertraline HCl (Sertraline Hcl 100 Mg Tablet) 100 mg PO DAILY [facility] Last Admin: 04/21/22 09:00 Dose: 100 mg Allergies Allergies Allergy/AdvReac Type Severity Reaction Status Date / Time trazodone [TRAZODONE] Allergy Severe SHORTNESS Verified 01/14/21 02:23 OF BREATH, GASPING FOR AIR , SOB aspirin [ASPIRIN] Allergy Unknown STOMACH Verified 01/14/21 02:23 UPSET, Nausea, nausa ciprofloxacin [Cipro] Allergy Unknown Rash Verified 01/14/21 02:23 promethazine [Phenergan] Allergy Unknown Hives Verified 01/14/21 02:23 Sulfa (Sulfonamide Allergy Unknown Unknown Verified 01/14/21 02:23 Antibiotics) Assessment & Plan Assessment & Plan (1) MDD (major depressive disorder), recurrent episode, severe: Status: Acute Code(s): F33.2 - Major depressive disorder, recurrent severe without psychotic features (2) PTSD (post-traumatic stress disorder): Status: Acute Code(s): F43.10 - Post-traumatic stress disorder, unspecified (3) Opioid dependence: Status: Acute Code(s): F11.20 - Opioid dependence, uncomplicated (4) Cocaine use disorder, moderate, dependence: Status: Acute Code(s): F14.20 - Cocaine dependence, uncomplicated Plan Patient is a 52-year-old female with hx of depression, anxiety, opioid and cocaine abuse, currently on methadone, who recently discharged from [place] in psych (and M5 on Feb 20) who presents to the ED following a near syncopal episode at home; on presentation, she reports she is anxious, depressed and suicidal in face of being off Clonazepam and having relapsed on opiates and cocaine. Withdrawal from benzos mild given low dose -patient remains with suicidal ideation and is feeling hopeless. Likely contributory is patients hx of trauma, including loss of a child, that seems to be only partially processed and of which she is reticent about during admissions; patient has few community supports and has other contributing psychosocial stressors such as possible eviction. ? She agrees to restart her medication regimen at last M 5 admission. 04/16 depressed, talking little, keeping to her self. Passive SI; wants to be back on Zoloft and dc fluvox/risperdal. Says did best on Zoloft; will restart and check qtc 04/18/2022 Monitor EKG on methadone mirtazapine Seroquel p.r.n. has increase QTC will lower Seroquel p.r.n. 04/20 discussed risks of Qtc and contributing meds; pt prefers increased seroquel to 100mg for now to which hand sign writer agrees since risks are low; discussed hx and pt denies any cardiac hx at all (in rare cases of prolonged Qtc becoming torsades, most had underlying cardiac issues). pt attending groups possibly some TD; discussed w/ patient who understands but wants to continue w/ meds 04/21 depressed, intermittent SI but attending groups and working on symptoms; still trouble sleeping and will try clonidine. Patient requires Zoloft titration for stability; however, due to hx of prolonged QTc on this medication, will need to titrate a little more slowly and check Qtc. Patient should remain on unit to get Zoloft to therapeutic dose to mitigate risk of decompensation. -open to IOP, but not program since she has beloved cat and no one to care for it PLAN: CV? Q 5 minute checks? ADDED Clonidine 0.05mg qhs for help w/ insomnia (will start at low dose due to intermittent mild hypotension) Increased Zoloft 100mg; will titrate; serial EKG (pt thinks she's been on 200mg in past) -Serial EKG to check qtc; in past, she reports Zoloft caused prolonged qtc -checking TSH (requested by vale) lower back to mirtazapine 7.5mg qhs (pt said had bad dreams when raised) DC fluvoxamine? DC Risperdal? continue BuSpar 15 mg t.i.d. Continue clonazepam 0.5 mg b.i.d. p.r.n. and 1 mg q.h.s.(has been on this dose for years) Continue Seroquel 100mg qhs prn for insomnia (back to this dose since poor sleep); will monitior EKG I spent minutes with the patient and/or on the patient floor today, greater than?50% of which was spent counseling/coordinating care. Patient educated on: diagnosis and medication risk/benefits Informed Consent: understands Reason for contiued inpatient stay Substantial Risk for: rapid decompensation Time Spent With Patient Time: Total time managing care of this patient today ____ minutes.
[2022-04-21 11:38] VITALS: BP 95/54
[2022-04-21] MEDS: hydrOXYzine HCL 25 MG TABLET 50 MG PO (13:40)
[2022-04-21 18:00] VITALS: BP 117/58; PULSE 63; RESP 16; TEMP 36.9; O2SAT 98
[2022-04-21] MEDS: clonazePAM 1 MG TABLET PO (20:35)
[2022-04-21] MEDS: Mirtazapine 7.5 MG TABLET PO (20:35)
[2022-04-21] MEDS: cloNIDine HCL 0.1 MG TABLET 0.05 MG PO (20:36)
[2022-04-21] MEDS: QUEtiapine Fumarate 100 MG TABLET PO (20:40)
[2022-04-22 06:00] VITALS: BP 108/56; PULSE 65; RESP 16; TEMP 36.9; O2SAT 94
--- NOTE | 2022-04-22 07:29 | HO.PSYCHPN ---
Subjective Subjective Date of Service: 04/22/22 Reason For Visit: SI Interim History: pt says she's feeling better and depression is much less; SI is still intermittent but much less and not intense. Clonidine has helped with sleep. Pt still has anxiety and thinks that over the years, it's gotten a little worse overall; she says maybe her body is just worn out.... and agrees perhaps going through menapause is contributory. She does not want to change medications regimen at this time, hoping to overall be on as few medications as possible and wants to see if Zoloft titration will make a difference. Ambivalent about IOP; she says she can get triggered depending on the energy of other participants so is hesitant; rather she prefers 1:1 psychotherapy Mental Status Exam Mental Status Exam Narrative: Pt is alert and oriented; behavior is cooperative, more engaged; patient is not in distress; dressed in hospital attire with unkempt hair but goodl hygiene; mood is described as little better and affect congruent, brighter; adequate eye contact; Speech is regular rate, volume and prosody; no longer latent; some tongue fasciculation present; still some psychomotor retardation present; thought process is goal directed; Thought content is treatment, worries about eviction; otherwise pertinent to relevant topics and without any delusional content, paranoid ideations or grandiosity; intermittent SI; no HI. There is no evidence of perceptual disturbance. Patients insight and judgment have improved and adequate. Diagnostics Vital Signs (24Hr): Vital Signs - 24 hr 04/21/22 11:18 04/21/22 11:38 04/21/22 18:00 Temperature 97.9 F 98.5 F Pulse Rate 70 63 Respiratory Rate 16 Blood Pressure 77/53 L 95/54 L 117/58 L Pulse Oximetry 95 98 Oxygen Delivery Method Room Air Room Air BMI result Body Mass Index 23.9 Labs Results: 04/12/22 22:00 04/12/22 22:00 Medications Medications Current Medications Acetaminophen (Acetaminophen 325 Mg Tablet) 650 mg PO Q6H PRN PRN Reason: Headache/Pain Mild Scale (1-3) Al Hydroxide/Mg Hydroxide (Magnesium Hydrox/Alum Hydrox 30 Ml Oral.Susp) 30 ml PO Q6H PRN PRN Reason: Heartburn/Nausea Albuterol Sulfate (Albuterol Sulfate 90 Mcg 8 Gm Inhaler) 2 puff INHALE Q4H PRN PRN Reason: wheezing Buspirone HCl (Buspirone Hcl 5 Mg Tablet) 15 mg PO TID [facility] Last Admin: 04/21/22 20:35 Dose: 15 mg Clonazepam (Clonazepam 0.5 Mg Tablet) 0.5 mg PO BID PRN PRN Reason: anxiety Last Admin: 04/21/22 16:08 Dose: 0.5 mg Clonazepam (Clonazepam 1 Mg Tablet) 1 mg PO BEDTIME [facility] Last Admin: 04/21/22 20:35 Dose: 1 mg Clonidine HCl (Clonidine Hcl 0.1 Mg Tablet) 0.05 mg PO BEDTIME [facility]; Protocol Last Admin: 04/21/22 20:36 Dose: 0.05 mg Hydroxyzine HCl (Hydroxyzine Hcl 25 Mg Tablet) 50 mg PO Q6H PRN PRN Reason: Anxiety Last Admin: 04/21/22 13:40 Dose: 50 mg Magnesium Hydroxide (Milk Of Magnesia 30 Ml Oral.Susp) 30 ml PO DAILY PRN PRN Reason: Constipation Methadone HCl (Methadone Hcl 20 Mg/2 Ml Oral.Conc) 85 mg PO DAILY [facility] Last Admin: 04/21/22 09:01 Dose: 85 mg Mirtazapine (Mirtazapine 7.5 Mg Tablet) 7.5 mg PO BEDTIME [facility] Last Admin: 04/21/22 20:35 Dose: 7.5 mg Multi-Ingred Cream/Lotion/Oil/Oint (Mineral Oil/Petrolatum,White 106 Gm Tube) 1 appl TOPICAL TID PRN; Protocol PRN Reason: dry skin Nicotine (Nicotine 21 Mg Patch.Td24) 21 mg TRANSDERMA DAILY PRN PRN Reason: nicotine craving Nicotine Polacrilex (Nicotine Polacrilex 2 Mg Gum) 4 mg BUCCAL Q2H PRN PRN Reason: Nicotine Cravings Quetiapine Fumarate (Quetiapine Fumarate 100 Mg Tablet) 100 mg PO BEDTIME PRN PRN Reason: insomnia Last Admin: 04/21/22 20:40 Dose: 100 mg Sertraline HCl (Sertraline Hcl 100 Mg Tablet) 100 mg PO DAILY [facility] Last Admin: 04/21/22 09:00 Dose: 100 mg Allergies Allergies Allergy/AdvReac Type Severity Reaction Status Date / Time trazodone [TRAZODONE] Allergy Severe SHORTNESS Verified 01/14/21 02:23 OF BREATH, GASPING FOR AIR , SOB aspirin [ASPIRIN] Allergy Unknown STOMACH Verified 01/14/21 02:23 UPSET, Nausea, nausa ciprofloxacin [Cipro] Allergy Unknown Rash Verified 01/14/21 02:23 promethazine [Phenergan] Allergy Unknown Hives Verified 01/14/21 02:23 Sulfa (Sulfonamide Allergy Unknown Unknown Verified 01/14/21 02:23 Antibiotics) Assessment & Plan Assessment & Plan (1) MDD (major depressive disorder), recurrent episode, severe: Status: Acute Code(s): F33.2 - Major depressive disorder, recurrent severe without psychotic features (2) PTSD (post-traumatic stress disorder): Status: Acute Code(s): F43.10 - Post-traumatic stress disorder, unspecified (3) Opioid dependence: Status: Acute Code(s): F11.20 - Opioid dependence, uncomplicated (4) Cocaine use disorder, moderate, dependence: Status: Acute Code(s): F14.20 - Cocaine dependence, uncomplicated Plan Patient is a 52-year-old female with hx of depression, anxiety, opioid and cocaine abuse, currently on methadone, who recently discharged from [place] in psych (and M5 on Feb 20) who presents to the ED following a near syncopal episode at home; on presentation, she reports she is anxious, depressed and suicidal in face of being off Clonazepam and having relapsed on opiates and cocaine. Withdrawal from benzos mild given low dose -patient remains with suicidal ideation and is feeling hopeless. Likely contributory is patients hx of trauma, including loss of a child, that seems to be only partially processed and of which she is reticent about during admissions; patient has few community supports and has other contributing psychosocial stressors such as possible eviction. ? She agrees to restart her medication regimen at last M 5 admission. 04/16 depressed, talking little, keeping to her self. Passive SI; wants to be back on Zoloft and dc fluvox/risperdal. Says did best on Zoloft; will restart and check qtc 04/18/2022 Monitor EKG on methadone mirtazapine Seroquel p.r.n. has increase QTC will lower Seroquel p.r.n. 04/20 discussed risks of Qtc and contributing meds; pt prefers increased seroquel to 100mg for now to which clinical writer agrees since risks are low; discussed hx and pt denies any cardiac hx at all (in rare cases of prolonged Qtc becoming torsades, most had underlying cardiac issues). pt attending groups possibly some TD; discussed w/ patient who understands but wants to continue w/ meds 04/21 depressed, intermittent SI but attending groups and working on symptoms; still trouble sleeping and will try clonidine. Patient requires Zoloft titration for stability; however, due to hx of prolonged QTc on this medication, will need to titrate a little more slowly and check Qtc. Patient should remain on unit to get Zoloft to therapeutic dose to mitigate risk of decompensation. -open to IOP, but not program since she has beloved cat and no one to care for it 04/22 mood is better and less SI; still quite anxious; discussed TSH results; sleeping better with clonidine, BP tolerating (has periods of hypotensions, however each time has denied any side-effects) PLAN: CV? Q 5 minute checks? continue Clonidine 0.05mg qhs for help w/ insomnia (will start at low dose due to intermittent mild hypotension) Increased Zoloft 100mg; will titrate; serial EKG (pt thinks she's been on 200mg in past) -Serial EKG to check qtc; in past, she reports Zoloft caused prolonged qtc -TSH: WNL lower back to mirtazapine 7.5mg qhs (pt said had bad dreams when raised) DC fluvoxamine? DC Risperdal? continue BuSpar 15 mg t.i.d. Continue clonazepam 0.5 mg b.i.d. p.r.n. and 1 mg q.h.s.(has been on this dose for years) Continue Seroquel 100mg qhs prn for insomnia (back to this dose since poor sleep); will monitior EKG I spent minutes with the patient and/or on the patient floor today, greater than?50% of which was spent counseling/coordinating care. Patient educated on: diagnosis, medication risk/benefits and therapeutic strategies Reason for contiued inpatient stay Substantial Risk for: rapid decompensation Time Spent With Patient Time: Total time managing care of this patient today ____ minutes.
[2022-04-22] MEDS: busPIRone HCl 5 MG TABLET 15 MG PO ×3 (08:25→21:42)
[2022-04-22] MEDS: Sertraline HCL 100 MG TABLET PO (08:25)
[2022-04-22] MEDS: methADONE HCl 20 MG/2 ML ORAL.CONC 85 MG PO (08:26)
[2022-04-22] MEDS: clonazePAM 0.5 MG TABLET PO ×2 (09:44→18:08)
[2022-04-22 10:22] LABS: TSH reflex Free T4 2.02 uIU/mL (0.32-4.0)
[2022-04-22] MEDS: hydrOXYzine HCL 25 MG TABLET 50 MG PO (14:03)
[2022-04-22 18:00] VITALS: BP 107/68; PULSE 78; RESP 16; TEMP 36.4; O2SAT 98
[2022-04-22] MEDS: clonazePAM 1 MG TABLET PO (21:40)
[2022-04-22] MEDS: cloNIDine HCL 0.1 MG TABLET 0.05 MG PO (21:41)
[2022-04-22] MEDS: Mirtazapine 7.5 MG TABLET PO (21:42)
[2022-04-23 07:00] VITALS: BMI 26.1
[2022-04-23 08:29] VITALS: BP 110/57; PULSE 73; TEMP 36.9; O2SAT 96
[2022-04-23] MEDS: clonazePAM 0.5 MG TABLET PO ×2 (08:59→16:05)
[2022-04-23] MEDS: Sertraline HCL 100 MG TABLET PO (08:59)
[2022-04-23] MEDS: busPIRone HCl 5 MG TABLET 15 MG PO ×3 (08:59→20:02)
[2022-04-23] MEDS: methADONE HCl 20 MG/2 ML ORAL.CONC 85 MG PO (09:00)
--- NOTE | 2022-04-23 09:00 | ECG_ITS ---
Test Reason : QTC CHECK Blood Pressure : / mmHG Vent. Rate : 051 BPM Atrial Rate : 051 BPM P-R Int : 158 ms QRS Dur : 084 ms QT Int : 514 ms P-R-T Axes : -23 020 020 degrees QTc Int : 473 ms Sinus bradycardia Otherwise normal ECG When compared with ECG of 18-APR-2022 14:42, No significant change was found Referred By: Bhupinder Chavez Electronically Signed By:JEN TAYLOR
[2022-04-23] MEDS: hydrOXYzine HCL 25 MG TABLET 50 MG PO (13:18)
--- NOTE | 2022-04-23 13:27 | P.PNPSI_ITS ---
Subjective Subjective Date of Service: 04/23/22 Reason For Visit: SI Interim History: Patient reports she is starting to feel a little better still. Remains anxious but depression continues to get better. Denies any side effects from increased Zoloft and QTC remains within normal limits. Will increase further and recheck EKG. Mental Status Exam Mental Status Exam Narrative: Pt is alert and oriented; behavior is cooperative, more engaged; patient is not in distress; dressed in hospital attire with unkempt hair but goodl hygiene; mood is described as little better and affect congruent, brighter; adequate eye contact; Speech is regular rate, volume and prosody; no longer latent; some tongue fasciculation present; still some psychomotor retardation present; thought process is goal directed; Thought content is treatment, worries about eviction; otherwise pertinent to relevant topics and without any delusional content, paranoid ideations or grandiosity; intermittent SI; no HI. There is no evidence of perceptual disturbance. Patients insight and judgment have improved and adequate. Diagnostics Vital Signs (24Hr): Vital Signs - 24 hr 04/22/22 18:00 04/23/22 08:29 Temperature 97.6 F 98.5 F Pulse Rate 78 73 Respiratory Rate 16 Blood Pressure 107/68 110/57 L Pulse Oximetry 98 96 Oxygen Delivery Method Room Air Room Air BMI result Body Mass Index 23.9 Labs Results: 04/12/22 22:00 04/12/22 22:00 Labs: Laboratory Results - last 48 hr 04/22/22 08:47 TSH 2.02 Medications Medications Current Medications Acetaminophen (Acetaminophen 325 Mg Tablet) 650 mg PO Q6H PRN PRN Reason: Headache/Pain Mild Scale (1-3) Al Hydroxide/Mg Hydroxide (Magnesium Hydrox/Alum Hydrox 30 Ml Oral.Susp) 30 ml PO Q6H PRN PRN Reason: Heartburn/Nausea Albuterol Sulfate (Albuterol Sulfate 90 Mcg 8 Gm Inhaler) 2 puff INHALE Q4H PRN PRN Reason: wheezing Buspirone HCl (Buspirone Hcl 5 Mg Tablet) 15 mg PO TID [facility] Last Admin: 04/23/22 08:59 Dose: 15 mg Clonazepam (Clonazepam 0.5 Mg Tablet) 0.5 mg PO BID PRN PRN Reason: anxiety Last Admin: 04/23/22 08:59 Dose: 0.5 mg Clonazepam (Clonazepam 1 Mg Tablet) 1 mg PO BEDTIME [facility] Last Admin: 04/22/22 21:40 Dose: 1 mg Clonidine HCl (Clonidine Hcl 0.1 Mg Tablet) 0.05 mg PO BEDTIME [facility]; Protocol Last Admin: 04/22/22 21:41 Dose: 0.05 mg Hydroxyzine HCl (Hydroxyzine Hcl 25 Mg Tablet) 50 mg PO Q6H PRN PRN Reason: Anxiety Last Admin: 04/23/22 13:18 Dose: 50 mg Magnesium Hydroxide (Milk Of Magnesia 30 Ml Oral.Susp) 30 ml PO DAILY PRN PRN Reason: Constipation Methadone HCl (Methadone Hcl 20 Mg/2 Ml Oral.Conc) 85 mg PO DAILY [facility] Last Admin: 04/23/22 09:00 Dose: 85 mg Mirtazapine (Mirtazapine 7.5 Mg Tablet) 7.5 mg PO BEDTIME [facility] Last Admin: 04/22/22 21:42 Dose: 7.5 mg Multi-Ingred Cream/Lotion/Oil/Oint (Mineral Oil/Petrolatum,White 106 Gm Tube) 1 appl TOPICAL TID PRN; Protocol PRN Reason: dry skin Nicotine (Nicotine 21 Mg Patch.Td24) 21 mg TRANSDERMA DAILY PRN PRN Reason: nicotine craving Nicotine Polacrilex (Nicotine Polacrilex 2 Mg Gum) 4 mg BUCCAL Q2H PRN PRN Reason: Nicotine Cravings Quetiapine Fumarate (Quetiapine Fumarate 100 Mg Tablet) 100 mg PO BEDTIME PRN PRN Reason: insomnia Last Admin: 04/21/22 20:40 Dose: 100 mg Sertraline HCl (Sertraline Hcl 25 Mg Tablet) 125 mg PO DAILY [facility] Allergies Allergies Allergy/AdvReac Type Severity Reaction Status Date / Time trazodone [TRAZODONE] Allergy Severe SHORTNESS Verified 01/14/21 02:23 OF BREATH, GASPING FOR AIR , SOB aspirin [ASPIRIN] Allergy Unknown STOMACH Verified 01/14/21 02:23 UPSET, Nausea, nausa ciprofloxacin [Cipro] Allergy Unknown Rash Verified 01/14/21 02:23 promethazine [Phenergan] Allergy Unknown Hives Verified 01/14/21 02:23 Sulfa (Sulfonamide Allergy Unknown Unknown Verified 01/14/21 02:23 Antibiotics) Assessment & Plan Assessment & Plan (1) MDD (major depressive disorder), recurrent episode, severe: Status: Acute Code(s): F33.2 - Major depressive disorder, recurrent severe without psychotic features (2) PTSD (post-traumatic stress disorder): Status: Acute Code(s): F43.10 - Post-traumatic stress disorder, unspecified (3) Opioid dependence: Status: Acute Code(s): F11.20 - Opioid dependence, uncomplicated (4) Cocaine use disorder, moderate, dependence: Status: Acute Code(s): F14.20 - Cocaine dependence, uncomplicated Plan Patient is a 52-year-old female with hx of depression, anxiety, opioid and cocaine abuse, currently on methadone, who recently discharged from [place] inpt psych (and M5 on Feb 20) who presents to the ED following a near syncopal episode at home; on presentation, she reports she is anxious, depressed and suicidal in face of being off Clonazepam and having relapsed on opiates and cocaine. Withdrawal from benzos mild given low dose -patient remains with suicidal ideation and is feeling hopeless. Likely contributory is patients hx of trauma, including loss of a child, that seems to be only partially processed and of which she is reticent about during admissions; patient has few community supports and has other contributing psychosocial stressors such as possible eviction. ? She agrees to restart her medication regimen at last M 5 admission. 04/16 depressed, talking little, keeping to her self. Passive SI; wants to be back on Zoloft and dc fluvox/risperdal. Says did best on Zoloft; will restart and check qtc 04/18/2022 Monitor EKG on methadone mirtazapine Seroquel p.r.n. has increase QTC will lower Seroquel p.r.n. 04/20 discussed risks of Qtc and contributing meds; pt prefers increased seroquel to 100mg for now to which web content writer agrees since risks are low; discussed hx and pt denies any cardiac hx at all (in rare cases of prolonged Qtc becoming torsades, most had underlying cardiac issues). pt attending groups possibly some TD; discussed w/ patient who understands but wants to continue w/ meds 04/21 depressed, intermittent SI but attending groups and working on symptoms; still trouble sleeping and will try clonidine. Patient requires Zoloft titration for stability; however, due to hx of prolonged QTc on this medication, will need to titrate a little more slowly and check Qtc. Patient should remain on unit to get Zoloft to therapeutic dose to mitigate risk of decompensation. -open to IOP, but not program since she has beloved cat and no one to care for it 04/22 mood is better and less SI; still quite anxious; discussed TSH results; sleeping better with clonidine, BP tolerating (has periods of hypotensions, however each time has denied any side-effects) 04/23 QTC within normal limits. Patient has history of debilitating anxiety and depression and needs further titration of Zoloft with serial EKGs for continued stability and safety in the community. PLAN: CV? Q 5 minute checks? continue Clonidine 0.05mg qhs for help w/ insomnia (will start at low dose due to intermittent mild hypotension) Increased Zoloft 125mg; will titrate; serial EKG (pt thinks she's been on 200mg in past) -Serial EKG to check qtc; in past, she reports Zoloft caused prolonged qtc EKG 04/23: ? QT Int : 514 ms/ QTc Int : 473 ms -TSH: WNL lower back to mirtazapine 7.5mg qhs (pt said had bad dreams when raised) DC fluvoxamine? DC Risperdal? continue BuSpar 15 mg t.i.d. Continue clonazepam 0.5 mg b.i.d. p.r.n. and 1 mg q.h.s.(has been on this dose for years) Continue Seroquel 100mg qhs prn for insomnia (back to this dose since poor sleep); will monitior EKG I spent minutes with the patient and/or on the patient floor today, greater than?50% of which was spent counseling/coordinating care. Patient educated on: diagnosis, medication risk/benefits and medical condition Informed Consent: understands Reason for contiued inpatient stay Substantial Risk for: stable for discharge Time Spent With Patient Time: Total time managing care of this patient today ____ minutes.
[2022-04-23 20:00] VITALS: BP 113/58; PULSE 57; TEMP 36.2
[2022-04-23] MEDS: QUEtiapine Fumarate 100 MG TABLET PO (20:03)
[2022-04-23] MEDS: Mirtazapine 7.5 MG TABLET PO (20:03)
[2022-04-23] MEDS: clonazePAM 1 MG TABLET PO (20:03)
[2022-04-23] MEDS: cloNIDine HCL 0.1 MG TABLET 0.05 MG PO (20:03)
[2022-04-24 06:00] VITALS: BP 97/55; PULSE 59; RESP 14; TEMP 36.5; O2SAT 98
[2022-04-24] MEDS: methADONE HCl 20 MG/2 ML ORAL.CONC 85 MG PO (08:33)
[2022-04-24] MEDS: busPIRone HCl 5 MG TABLET 15 MG PO ×3 (08:35→21:29)
[2022-04-24] MEDS: Sertraline HCL 25 MG TABLET 125 MG PO (08:35)
--- NOTE | 2022-04-24 09:42 | P.PNPSI_ITS ---
Subjective Subjective Date of Service: 04/24/22 Reason For Visit: SI Interim History: pt says she's good and feeling better; some trouble with sleep remains. Patient still feels much anxiety, a lot of it social and has decided against IOP. Continue to discuss whether not to increase Zoloft for now. Discussed discharge and patient think she will ready on Wednesday Mental Status Exam Mental Status Exam Narrative: Pt is alert and oriented; behavior is cooperative, more engaged; patient is not in distress; dressed in hospital attire with unkempt hair but goodl hygiene; mo od is described as good and affect congruent, brighter; adequate eye contact; Speech is regular rate, volume and prosody; no longer latent; some tongue fasciculation present; still some psychomotor retardation present; thought process is goal directed; Thought content is treatment, worries about eviction; otherwise pertinent to relevant topics and without any delusional content, paranoid ideations or grandiosity; intermittent SI; no HI. There is no evidence of perceptual disturbance. Patients insight and judgment have improved and adequate. Diagnostics Vital Signs (24Hr): Vital Signs - 24 hr 04/23/22 20:00 Temperature 97.1 F Pulse Rate 57 Blood Pressure 113/58 L BMI result Body Mass Index 26.1 Labs Results: 04/12/22 22:00 04/12/22 22:00 Labs: Laboratory Results - last 48 hr 04/22/22 08:47 TSH 2.02 Medications Medications Current Medications Acetaminophen (Acetaminophen 325 Mg Tablet) 650 mg PO Q6H PRN PRN Reason: Headache/Pain Mild Scale (1-3) Al Hydroxide/Mg Hydroxide (Magnesium Hydrox/Alum Hydrox 30 Ml Oral.Susp) 30 ml PO Q6H PRN PRN Reason: Heartburn/Nausea Albuterol Sulfate (Albuterol Sulfate 90 Mcg 8 Gm Inhaler) 2 puff INHALE Q4H PRN PRN Reason: wheezing Buspirone HCl (Buspirone Hcl 5 Mg Tablet) 15 mg PO TID COUNT INCLUDES THE [facility] Last Admin: 04/24/22 08:35 Dose: 15 mg Clonazepam (Clonazepam 0.5 Mg Tablet) 0.5 mg PO BID PRN PRN Reason: anxiety Last Admin: 04/23/22 16:05 Dose: 0.5 mg Clonazepam (Clonazepam 1 Mg Tablet) 1 mg PO BEDTIME COUNT INCLUDES THE [facility] Last Admin: 04/23/22 20:03 Dose: 1 mg Clonidine HCl (Clonidine Hcl 0.1 Mg Tablet) 0.05 mg PO BEDTIME ALICIA; Protocol Last Admin: 04/23/22 20:03 Dose: 0.05 mg Hydroxyzine HCl (Hydroxyzine Hcl 25 Mg Tablet) 50 mg PO Q6H PRN PRN Reason: Anxiety Last Admin: 04/23/22 13:18 Dose: 50 mg Magnesium Hydroxide (Milk Of Magnesia 30 Ml Oral.Susp) 30 ml PO DAILY PRN PRN Reason: Constipation Methadone HCl (Methadone Hcl 20 Mg/2 Ml Oral.Conc) 85 mg PO DAILY ALICIA Last Admin: 04/24/22 08:33 Dose: 85 mg Mirtazapine (Mirtazapine 7.5 Mg Tablet) 7.5 mg PO BEDTIME ALICIA Last Admin: 04/23/22 20:03 Dose: 7.5 mg Multi-Ingred Cream/Lotion/Oil/Oint (Mineral Oil/Petrolatum,White 106 Gm Tube) 1 appl TOPICAL TID PRN; Protocol PRN Reason: dry skin Nicotine (Nicotine 21 Mg Patch.Td24) 21 mg TRANSDERMA DAILY PRN PRN Reason: nicotine craving Nicotine Polacrilex (Nicotine Polacrilex 2 Mg Gum) 4 mg BUCCAL Q2H PRN PRN Reason: Nicotine Cravings Quetiapine Fumarate (Quetiapine Fumarate 100 Mg Tablet) 100 mg PO BEDTIME PRN PRN Reason: insomnia Last Admin: 04/23/22 20:03 Dose: 100 mg Sertraline HCl (Sertraline Hcl 25 Mg Tablet) 125 mg PO DAILY COUNT INCLUDES THE [facility] Last Admin: 04/24/22 08:35 Dose: 125 mg Allergies Allergies Allergy/AdvReac Type Severity Reaction Status Date / Time trazodone [TRAZODONE] Allergy Severe SHORTNESS Verified 01/14/21 02:23 OF BREATH, GASPING FOR AIR , SOB aspirin [ASPIRIN] Allergy Unknown STOMACH Verified 01/14/21 02:23 UPSET, Nausea, nausa ciprofloxacin [Cipro] Allergy Unknown Rash Verified 01/14/21 02:23 promethazine [Phenergan] Allergy Unknown Hives Verified 01/14/21 02:23 Sulfa (Sulfonamide Allergy Unknown Unknown Verified 01/14/21 02:23 Antibiotics) Assessment & Plan Assessment & Plan (1) MDD (major depressive disorder), recurrent episode, severe: Status: Acute Code(s): F33.2 - Major depressive disorder, recurrent severe without psychotic features (2) PTSD (post-traumatic stress disorder): Status: Acute Code(s): F43.10 - Post-traumatic stress disorder, unspecified (3) Opioid dependence: Status: Acute Code(s): F11.20 - Opioid dependence, uncomplicated (4) Cocaine use disorder, moderate, dependence: Status: Acute Code(s): F14.20 - Cocaine dependence, uncomplicated Plan Patient is a 52-year-old female with hx of depression, anxiety, opioid and cocaine abuse, currently on methadone, who recently discharged from [place] in psych (and M5 on Feb 20) who presents to the ED following a near syncopal episode at home; on presentation, she reports she is anxious, depressed and suicidal in face of being off Clonazepam and having relapsed on opiates and cocaine. Withdrawal from benzos mild given low dose -patient remains with suicidal ideation and is feeling hopeless. Likely contributory is patients hx of trauma, including loss of a child, that seems to be only partially processed and of which she is reticent about during admissions; patient has few community supports and has other contributing psychosocial stressors such as possible eviction. ? She agrees to restart her medication regimen at last M 5 admission. 04/16 depressed, talking little, keeping to her self. Passive SI; wants to be ba ck on Zoloft and dc fluvox/risperdal. Says did best on Zoloft; will restart and check qtc 04/18/2022 Monitor EKG on methadone mirtazapine Seroquel p.r.n. has increase QTC will lower Seroquel p.r.n. 04/20 discussed risks of Qtc and contributing meds; pt prefers increased seroquel to 100mg for now to which fiction and nonfiction prose writer agrees since risks are low; discussed hx and pt denies any cardiac hx at all (in rare cases of prolonged Qtc becoming torsades, most had underlying cardiac issues). pt attending groups possibly some TD; discussed w/ patient who understands but wants to continue w/ meds 04/21 depressed, intermittent SI but attending groups and working on symptoms; still trouble sleeping and will try clonidine. Patient requires Zoloft titration for stability; however, due to hx of prolonged QTc on this medication, will need to titrate a little more slowly and check Qtc. Patient should remain on unit to get Zoloft to therapeutic dose to mitigate risk of decompensation. -open to IOP, but not program since she has beloved cat and no one to care for it 04/22 mood is better and less SI; still quite anxious; discussed TSH results; sleeping better with clonidine, BP tolerating (has periods of hypotensions, however each time has denied any side-effects) 04/23 QTC within normal limits. Patient has history of debilitating anxiety and depression and needs further titration of Zoloft with serial EKGs for continued stability and safety in the community. 04/24 doing better; will debate whether not to increase Zoloft further. Patient used to be on Zoloft 200 mg; however she is now also on mirtazapine and BuSpar which might make up the difference PLAN: CV? Q 5 minute checks? continue Clonidine 0.05mg qhs for help w/ insomnia (will start at low dose due to intermittent mild hypotension) Increased Zoloft 125mg; will titrate; serial EKG (pt thinks she's been on 200mg in past) -Serial EKG to check qtc; in past, she reports Zoloft caused prolonged qtc EKG 04/23: ? QT Int : 514 ms/ QTc Int : 473 ms -TSH: WNL lower back to mirtazapine 7.5mg qhs (pt said had bad dreams when raised) DC fluvoxamine? DC Risperdal? continue BuSpar 15 mg t.i.d. Continue clonazepam 0.5 mg b.i.d. p.r.n. and 1 mg q.h.s.(has been on this dose for years) Continue Seroquel 100mg qhs prn for insomnia (back to this dose since poor sleep); will monitior EKG I spent minutes with the patient and/or on the patient floor today, greater than?50% of which was spent counseling/coordinating care. Patient educated on: diagnosis and medication risk/benefits Informed Consent: understands Reason for contiued inpatient stay Substantial Risk for: stable for discharge Time Spent With Patient Time: Total time managing care of this patient today ____ minutes.
[2022-04-24] MEDS: clonazePAM 0.5 MG TABLET PO (11:15)
[2022-04-24] MEDS: Acetaminophen 325 MG TABLET 650 MG PO (15:42)
[2022-04-24] MEDS: hydrOXYzine HCL 25 MG TABLET 50 MG PO (15:42)
[2022-04-24 21:25] VITALS: BP 119/60; PULSE 60; RESP 14; TEMP 36.7
[2022-04-24] MEDS: Mirtazapine 7.5 MG TABLET PO (21:29)
[2022-04-24] MEDS: cloNIDine HCL 0.1 MG TABLET 0.05 MG PO (21:29)
[2022-04-24] MEDS: clonazePAM 1 MG TABLET PO (21:29)
[2022-04-25] MEDS: busPIRone HCl 5 MG TABLET 15 MG PO ×3 (08:45→21:04)
[2022-04-25] MEDS: clonazePAM 0.5 MG TABLET PO ×2 (08:45→17:27)
[2022-04-25] MEDS: Sertraline HCL 25 MG TABLET 125 MG PO (08:45)
[2022-04-25] MEDS: methADONE HCl 20 MG/2 ML ORAL.CONC 85 MG PO (08:45)
[2022-04-25 08:57] VITALS: BP 107/53; PULSE 51; RESP 16; TEMP 36.5; O2SAT 97
--- NOTE | 2022-04-25 10:25 | P.PNPSI_ITS ---
Subjective Subjective Date of Service: 04/25/22 Reason For Visit: SI Interim History: says she feels good; sleeping better; no complaints; preparing for discharge wednesday Mental Status Exam Mental Status Exam Narrative: Pt is alert and oriented; behavior is cooperative, more engaged; patient is not in distress; dressed in hospital attire with unkempt hair but goodl hygiene; mood is described as good and affect congruent, brighter; adequate eye contact; Speech is regular rate, volume and prosody; no longer latent; some tongue fasciculation present; still some psychomotor retardation present; thought process is goal directed; Thought content is treatment, worries about eviction; otherwise pertinent to relevant topics and without any delusional content, paranoid ideations or grandiosity; intermittent SI; no HI. There is no evidence of perceptual disturbance. Patients insight and judgment have improved and adequate. Diagnostics Vital Signs (24Hr): Vital Signs - 24 hr 04/24/22 21:25 04/25/22 08:57 Temperature 98.1 F 97.7 F Pulse Rate 60 51 Respiratory Rate 14 16 Blood Pressure 119/60 107/53 L Pulse Oximetry 97 BMI result Body Mass Index 26.1 Labs Results: 04/12/22 22:00 04/12/22 22:00 Medications Medications Current Medications Acetaminophen (Acetaminophen 325 Mg Tablet) 650 mg PO Q6H PRN PRN Reason: Headache/Pain Mild Scale (1-3) Last Admin: 04/24/22 15:42 Dose: 650 mg Al Hydroxide/Mg Hydroxide (Magnesium Hydrox/Alum Hydrox 30 Ml Oral.Susp) 30 ml PO Q6H PRN PRN Reason: Heartburn/Nausea Albuterol Sulfate (Albuterol Sulfate 90 Mcg 8 Gm Inhaler) 2 puff INHALE Q4H PRN PRN Reason: wheezing Buspirone HCl (Buspirone Hcl 5 Mg Tablet) 15 mg PO TID ALICIA Last Admin: 04/25/22 08:45 Dose: 15 mg Clonazepam (Clonazepam 0.5 Mg Tablet) 0.5 mg PO BID PRN PRN Reason: anxiety Last Admin: 04/25/22 08:45 Dose: 0.5 mg Clonazepam (Clonazepam 1 Mg Tablet) 1 mg PO BEDTIME ALICIA Last Admin: 04/24/22 21:29 Dose: 1 mg Clonidine HCl (Clonidine Hcl 0.1 Mg Tablet) 0.05 mg PO BEDTIME ALICIA; Protocol Last Admin: 04/24/22 21:29 Dose: 0.05 mg Hydroxyzine HCl (Hydroxyzine Hcl 25 Mg Tablet) 50 mg PO Q6H PRN PRN Reason: Anxiety Last Admin: 04/24/22 15:42 Dose: 50 mg Magnesium Hydroxide (Milk Of Magnesia 30 Ml Oral.Susp) 30 ml PO DAILY PRN PRN Reason: Constipation Methadone HCl (Methadone Hcl 20 Mg/2 Ml Oral.Conc) 85 mg PO DAILY [facility] Last Admin: 04/25/22 08:45 Dose: 85 mg Mirtazapine (Mirtazapine 7.5 Mg Tablet) 7.5 mg PO BEDTIME ALICIA Last Admin: 04/24/22 21:29 Dose: 7.5 mg Multi-Ingred Cream/Lotion/Oil/Oint (Mineral Oil/Petrolatum,White 106 Gm Tube) 1 appl TOPICAL TID PRN; Protocol PRN Reason: dry skin Nicotine (Nicotine 21 Mg Patch.Td24) 21 mg TRANSDERMA DAILY PRN PRN Reason: nicotine craving Nicotine Polacrilex (Nicotine Polacrilex 2 Mg Gum) 4 mg BUCCAL Q2H PRN PRN Reason: Nicotine Cravings Quetiapine Fumarate (Quetiapine Fumarate 100 Mg Tablet) 100 mg PO BEDTIME PRN PRN Reason: insomnia Last Admin: 04/23/22 20:03 Dose: 100 mg Sertraline HCl (Sertraline Hcl 25 Mg Tablet) 125 mg PO DAILY [facility] Last Admin: 04/25/22 08:45 Dose: 125 mg Allergies Allergies Allergy/AdvReac Type Severity Reaction Status Date / Time trazodone [TRAZODONE] Allergy Severe SHORTNESS Verified 01/14/21 02:23 OF BREATH, GASPING FOR AIR , SOB aspirin [ASPIRIN] Allergy Unknown STOMACH Verified 01/14/21 02:23 UPSET, Nausea, nausa ciprofloxacin [Cipro] Allergy Unknown Rash Verified 01/14/21 02:23 promethazine [Phenergan] Allergy Unknown Hives Verified 01/14/21 02:23 Sulfa (Sulfonamide Allergy Unknown Unknown Verified 01/14/21 02:23 Antibiotics) Assessment & Plan Assessment & Plan (1) MDD (major depressive disorder), recurrent episode, severe: Status: Acute Code(s): F33.2 - Major depressive disorder, recurrent severe without psychotic features (2) PTSD (post-traumatic stress disorder): Status: Acute Code(s): F43.10 - Post-traumatic stress disorder, unspecified (3) Opioid dependence: Status: Acute Code(s): F11.20 - Opioid dependence, uncomplicated (4) Cocaine use disorder, moderate, dependence: Status: Acute Code(s): F14.20 - Cocaine dependence, uncomplicated Plan Patient is a 52-year-old female with hx of depression, anxiety, opioid and cocaine abuse, currently on methadone, who recently discharged from [place] in psych (and M5 on Feb 20) who presents to the ED following a near syncopal episode at home; on presentation, she reports she is anxious, depressed and suicidal in face of being off Clonazepam and having relapsed on opiates and cocaine. Withdrawal from benzos mild given low dose -patient remains with suicidal ideation and is feeling hopeless. Likely contributory is patients hx of trauma, including loss of a child, that seems to be only partially processed and of which she is reticent about during admissions; patient has few community supports and has other contributing psychosocial stressors such as possible eviction. ? She agrees to restart her medication regimen at last M 5 admission. 04/16 depressed, talking little, keeping to her self. Passive SI; wants to be back on Zoloft and dc fluvox/risperdal. Says did best on Zoloft; will restart and check qtc 04/18/2022 Monitor EKG on methadone mirtazapine Seroquel p.r.n. has increase QTC will lower Seroquel p.r.n. 04/20 discussed risks of Qtc and contributing meds; pt prefers increased seroquel to 100mg for now to which life insurance underwriter agrees since risks are low; discussed hx and pt denies any cardiac hx at all (in rare cases of prolonged Qtc becoming torsades, most had underlying cardiac issues). pt attending groups possibly some TD; discussed w/ patient who understands but wants to continue w/ meds 04/21 depressed, intermittent SI but attending groups and working on symptoms; still trouble sleeping and will try clonidine. Patient requires Zoloft titration for stability; however, due to hx of prolonged QTc on this medication, will need to titrate a little more slowly and check Qtc. Patient should remain on unit to get Zoloft to therapeutic dose to mitigate risk of decompensation. -open to IOP, but not program since she has beloved cat and no one to care for it 04/22 mood is better and less SI; still quite anxious; discussed TSH results; sleeping better with clonidine, BP tolerating (has periods of hypotensions, however each time has denied any side-effects) 04/23 QTC within normal limits. Patient has history of debilitating anxiety and depression and needs further titration of Zoloft with serial EKGs for continued stability and safety in the community. 04/24 doing better; will debate whether not to increase Zoloft further. Patient used to be on Zoloft 200 mg; however she is now also on mirtazapine and BuSpar which might make up the difference 04/25 doing well; depression abating; feels regimen is working PLAN: CV? Q 5 minute checks? continue Clonidine 0.05mg qhs for help w/ insomnia (will start at low dose due to intermittent mild hypotension) Increased Zoloft 125mg; will titrate; serial EKG (pt thinks she's been on 200mg in past) -Serial EKG to check qtc; in past, she reports Zoloft caused prolonged qtc EKG 04/23: ? QT Int : 514 ms/ QTc Int : 473 ms -TSH: WNL lower back to mirtazapine 7.5mg qhs (pt said had bad dreams when raised) DC fluvoxamine? DC Risperdal? continue BuSpar 15 mg t.i.d. Continue clonazepam 0.5 mg b.i.d. p.r.n. and 1 mg q.h.s.(has been on this dose f or years) Continue Seroquel 100mg qhs prn for insomnia (back to this dose since poor sleep); will monitior EKG I spent minutes with the patient and/or on the patient floor today, greater than?50% of which was spent counseling/coordinating care. Patient educated on: diagnosis and medication risk/benefits Informed Consent: understands Reason for contiued inpatient stay Substantial Risk for: stable for discharge Time Spent With Patient Time: Total time managing care of this patient today ____ minutes.
[2022-04-25] MEDS: hydrOXYzine HCL 25 MG TABLET 50 MG PO (12:53)
[2022-04-25 18:00] VITALS: BP 135/74; PULSE 64; RESP 16; O2SAT 97
[2022-04-25] MEDS: clonazePAM 1 MG TABLET PO (21:04)
[2022-04-25] MEDS: Mirtazapine 7.5 MG TABLET PO (21:04)
[2022-04-25] MEDS: cloNIDine HCL 0.1 MG TABLET 0.05 MG PO (21:04)
[2022-04-25] MEDS: QUEtiapine Fumarate 100 MG TABLET PO (21:09)
[2022-04-26 06:00] VITALS: BP 98/55; PULSE 61; RESP 16; TEMP 36.3; O2SAT 97
[2022-04-26] MEDS: methADONE HCl 20 MG/2 ML ORAL.CONC 85 MG PO (08:35)
[2022-04-26] MEDS: busPIRone HCl 5 MG TABLET 15 MG PO ×3 (08:36→19:16)
[2022-04-26] MEDS: clonazePAM 0.5 MG TABLET PO (08:36)
[2022-04-26] MEDS: Sertraline HCL 25 MG TABLET 125 MG PO (08:36)
[2022-04-26] MEDS: hydrOXYzine HCL 25 MG TABLET 50 MG PO (12:13)
--- NOTE | 2022-04-26 17:43 | P.PNPSI_ITS ---
Subjective Subjective Date of Service: 04/26/22 Reason For Visit: SI Interim History: Patient reports she is in a good mood and that she slept better last night. No SI, feels ready to go tomorrow. Mental Status Exam Mental Status Exam Narrative: Pt is alert and oriented; behavior is cooperative, engaged; patient is not in distress; dressed in hospital attire with combed hair and good hygiene; mood is described as good and affect congruent, brighter; adequate eye contact; Speech is regular rate, volume and prosody; no longer latent; some tongue fasciculation present; no psychomotor retardation present; thought process is goal directed; Thought content is treatment, aftercare; some worries about eviction; otherwise pertinent to relevant topics and without any delusional content, paranoid ideations or grandiosity; intermittent SI; no HI. There is no evidence of p erceptual disturbance. Patients insight and judgment are fair. Diagnostics Vital Signs (24Hr): Vital Signs - 24 hr 04/25/22 18:00 04/26/22 06:00 Temperature 97.4 F Pulse Rate 64 61 Respiratory Rate 16 16 Blood Pressure 135/74 98/55 L Pulse Oximetry 97 97 Oxygen Delivery Method Room Air Room Air BMI result Body Mass Index 26.1 Labs Results: 04/12/22 22:00 04/12/22 22:00 Medications Medications Current Medications Acetaminophen (Acetaminophen 325 Mg Tablet) 650 mg PO Q6H PRN PRN Reason: Headache/Pain Mild Scale (1-3) Last Admin: 04/24/22 15:42 Dose: 650 mg Al Hydroxide/Mg Hydroxide (Magnesium Hydrox/Alum Hydrox 30 Ml Oral.Susp) 30 ml PO Q6H PRN PRN Reason: Heartburn/Nausea Albuterol Sulfate (Albuterol Sulfate 90 Mcg 8 Gm Inhaler) 2 puff INHALE Q4H PRN PRN Reason: wheezing Buspirone HCl (Buspirone Hcl 5 Mg Tablet) 15 mg PO TID [facility] Last Admin: 04/26/22 14:39 Dose: 15 mg Clonazepam (Clonazepam 0.5 Mg Tablet) 0.5 mg PO BID PRN PRN Reason: anxiety Last Admin: 04/26/22 08:36 Dose: 0.5 mg Clonazepam (Clonazepam 1 Mg Tablet) 1 mg PO BEDTIME [facility] Last Admin: 04/25/22 21:04 Dose: 1 mg Clonidine HCl (Clonidine Hcl 0.1 Mg Tablet) 0.05 mg PO BEDTIME ALICIA; Protocol Last Admin: 04/25/22 21:04 Dose: 0.05 mg Hydroxyzine HCl (Hydroxyzine Hcl 25 Mg Tablet) 50 mg PO Q6H PRN PRN Reason: Anxiety Last Admin: 04/26/22 12:13 Dose: 50 mg Magnesium Hydroxide (Milk Of Magnesia 30 Ml Oral.Susp) 30 ml PO DAILY PRN PRN Reason: Constipation Methadone HCl (Methadone Hcl 20 Mg/2 Ml Oral.Conc) 85 mg PO DAILY [facility] Last Admin: 04/26/22 08:35 Dose: 85 mg Mirtazapine (Mirtazapine 7.5 Mg Tablet) 7.5 mg PO BEDTIME [facility] Last Admin: 04/25/22 21:04 Dose: 7.5 mg Multi-Ingred Cream/Lotion/Oil/Oint (Mineral Oil/Petrolatum,White 106 Gm Tube) 1 appl TOPICAL TID PRN; Protocol PRN Reason: dry skin Nicotine (Nicotine 21 Mg Patch.Td24) 21 mg TRANSDERMA DAILY PRN PRN Reason: nicotine craving Nicotine Polacrilex (Nicotine Polacrilex 2 Mg Gum) 4 mg BUCCAL Q2H PRN PRN Reason: Nicotine Cravings Quetiapine Fumarate (Quetiapine Fumarate 100 Mg Tablet) 100 mg PO BEDTIME PRN PRN Reason: insomnia Last Admin: 04/25/22 21:09 Dose: 100 mg Sertraline HCl (Sertraline Hcl 25 Mg Tablet) 125 mg PO DAILY [facility] Last Admin: 04/26/22 08:36 Dose: 125 mg Allergies Allergies Allergy/AdvReac Type Severity Reaction Status Date / Time trazodone [TRAZODONE] Allergy Severe SHORTNESS Verified 01/14/21 02:23 OF BREATH, GASPING FOR AIR , SOB aspirin [ASPIRIN] Allergy Unknown STOMACH Verified 01/14/21 02:23 UPSET, Nausea, nausa ciprofloxacin [Cipro] Allergy Unknown Rash Verified 01/14/21 02:23 promethazine [Phenergan] Allergy Unknown Hives Verified 01/14/21 02:23 Sulfa (Sulfonamide Allergy Unknown Unknown Verified 01/14/21 02:23 Antibiotics) Assessment & Plan Assessment & Plan (1) MDD (major depressive disorder), recurrent episode, severe: Status: Acute Code(s): F33.2 - Major depressive disorder, recurrent severe without psychotic features (2) PTSD (post-traumatic stress disorder): Status: Acute Code(s): F43.10 - Post-traumatic stress disorder, unspecified (3) Opioid dependence: Status: Acute Code(s): F11.20 - Opioid dependence, uncomplicated (4) Cocaine use disorder, moderate, dependence: Status: Acute Code(s): F14.20 - Cocaine dependence, uncomplicated Plan Patient is a 52-year-old female with hx of depression, anxiety, opioid and cocaine abuse, currently on methadone, who recently discharged from [place] [facility] (and [facility] on Feb 20) who presents to the ED following a near syncopal episode at home; on presentation, she reports she is anxious, depressed and suicidal in face of being off Clonazepam and having relapsed on opiates and cocaine. Withdrawal from benzos mild given low dose -patient remains with suicidal ideation and is feeling hopeless. Likely contributory is patients hx of trauma, including loss of a child, that seems to be only partially processed and of which she is reticent about during admissions; patient has few community supports and has other contributing psychosocial stressors such as possible eviction. ? She agrees to restart her medication regimen at last M 5 admission. 04/16 depressed, talking little, keeping to her self. Passive SI; wants to be back on Zoloft and dc fluvox/risperdal. Says did best on Zoloft; will restart and check qtc 04/18/2022 Monitor EKG on methadone mirtazapine Seroquel p.r.n. has increase QTC will lower Seroquel p.r.n. 04/20 discussed risks of Qtc and contributing meds; pt prefers increased seroquel to 100mg for now to which ad copy writer agrees since risks are low; discussed hx and pt denies any cardiac hx at all (in rare cases of prolonged Qtc becoming torsades, most had underlying cardiac issues). pt attending groups possibly some TD; discussed w/ patient who understands but wants to continue w/ meds 04/21 depressed, intermittent SI but attending groups and working on symptoms; still trouble sleeping and will try clonidine. Patient requires Zoloft titration for stability; however, due to hx of prolonged QTc on this medication, will need to titrate a little more slowly and check Qtc. Patient should remain on unit to get Zoloft to therapeutic dose to mitigate risk of decompensation. -open to IOP, but not program since she has beloved cat and no one to care for it 04/22 mood is better and less SI; still quite anxious; discussed TSH results; sleeping better with clonidine, BP tolerating (has periods of hypotensions, however each time has denied any side-effects) 04/23 QTC within normal limits. Patient has history of debilitating anxiety and depression and needs further titration of Zoloft with serial EKGs for continued stability and safety in the community. 04/24 doing better; will debate whether not to increase Zoloft further. Patient used to be on Zoloft 200 mg; however she is now also on mirtazapine and BuSpar which might make up the difference 04/25 doing well; depression abating; feels regimen is working 04/26 remains in good mood, says depression pretty much gone, anxiety under better control, no SI, future oriented. Feels ready for discharge tomorrow. Patient is not in imminent risk for harm to self or others and she is appropriate to return to the community for treatment; her request for discharge honored. PLAN: CV? Q 5 minute checks? continue Clonidine 0.05mg qhs for help w/ insomnia (will start at low dose due to intermittent mild hypotension) Increased Zoloft 125mg; will titrate; serial EKG (pt thinks she's been on 200mg in past) -Serial EKG to check qtc; in past, she reports Zoloft caused prolonged qtc EKG 04/23: ? QT Int : 514 ms/ QTc Int : 473 ms -TSH: WNL lower back to mirtazapine 7.5mg qhs (pt said had bad dreams when raised) DC fluvoxamine? DC Risperdal? continue BuSpar 15 mg t.i.d. Continue clonazepam 0.5 mg b.i.d. p.r.n. and 1 mg q.h.s.(has been on this dose for years) Continue Seroquel 100mg qhs prn for insomnia (back to this dose since poor sleep); will monitior EKG I spent minutes with the patient and/or on the patient floor today, greater than?50% of which was spent counseling/coordinating care. Patient educated on: diagnosis and medication risk/benefits Informed Consent: understands Reason for contiued inpatient stay Substantial Risk for: stable for discharge Time Spent With Patient Time: Total time managing care of this patient today ____ minutes.
[2022-04-26 18:00] VITALS: BP 124/70; PULSE 59; RESP 16; TEMP 36.6; O2SAT 98
[2022-04-26] MEDS: clonazePAM 1 MG TABLET PO (19:16)
[2022-04-26] MEDS: cloNIDine HCL 0.1 MG TABLET 0.05 MG PO (19:16)
[2022-04-26] MEDS: Mirtazapine 7.5 MG TABLET PO (19:16)
[2022-04-26] MEDS: QUEtiapine Fumarate 100 MG TABLET PO (21:57)
[2022-04-27 07:45] VITALS: BP 100/66; PULSE 61; RESP 16; TEMP 36.8; O2SAT 97
[2022-04-27] MEDS: Sertraline HCL 25 MG TABLET 125 MG PO (09:06)
[2022-04-27] MEDS: methADONE HCl 20 MG/2 ML ORAL.CONC 85 MG PO (09:06)
[2022-04-27] MEDS: busPIRone HCl 5 MG TABLET 15 MG PO ×2 (09:07→14:03)
[2022-04-27] MEDS: clonazePAM 0.5 MG TABLET PO (09:21)
--- NOTE | 2022-04-27 09:44 | P.DS_ITS ---
DS: Providers Provider Date of Service: 04/27/22 Date of admission: 04/14/22 16:04 Date of discharge: 04/27/22 Primary care physician: Grecia Physician Attending physician on admission: Bhupinder Chavez Attending physician on discharge: Bhupinder Chavez DS: Diagnosis Discharge Diagnosis (1) MDD (major depressive disorder), recurrent episode, severe: Status: Acute (2) PTSD (post-traumatic stress disorder): Status: Acute (3) Opioid dependence: Status: Acute (4) Cocaine use disorder, moderate, dependence: Status: Acute DS: Medications Discharge Medications Home Medications: Home Medications Medication Instructions Recorded Confirmed methadone 10 mg/mL oral 85 mg PO DAILY 04/13/22 04/13/22 concentrate (Methadose) Previous Rx's Medication Instructions Recorded albuterol sulfate 90 mcg/actuation 2 puff inhalation Q4H PRN wheezing 04/27/22 aerosol inhaler (ProAir HFA) 30 days #6.7 grams buspirone 5 mg tablet 15 mg PO TID 30 days #270 tabs 04/27/22 clonazepam 1 mg tablet See Rx Instructions .Route 04/27/22 .COMPLEX 15 days #23 tabs clonidine HCl 0.1 mg tablet 0.05 mg PO BEDTIME 30 days #15 tabs 04/27/22 hydroxyzine HCl 50 mg tablet 50 mg PO TID PRN anxiety 30 days 04/27/22 #60 tabs mirtazapine 7.5 mg tablet 7.5 mg PO BEDTIME 30 days #30 tabs 04/27/22 quetiapine 100 mg tablet 100 mg PO BEDTIME PRN insomnia 30 04/27/22 days #30 tabs sertraline 100 mg tablet 100 mg PO DAILY 30 days #30 tabs 04/27/22 sertraline 25 mg tablet 25 mg PO DAILY 30 days #30 tabs 04/27/22 Mental Status Exam Mental Status Exam Narrative: Pt is alert and oriented; behavior is cooperative, engaged; patient is not in distress; combed hair and good hygiene; mood is described as good and affect congruent, brighter; adequate eye contact; Speech is regular rate, volume and prosody; no longer latent; some tongue fasciculation present; no psychomotor retardation present; thought process is goal directed; Thought content is treatment, aftercare; some worries about eviction; otherwise pertinent to relevant topics and without any delusional content, paranoid ideations or grandiosity; intermittent SI; no HI. There is no evidence of perceptual disturbance. Patients insight and judgment are fair. Data Data Completed and Pending Completed studies during hospitalization [Text1]: 04/22/22 08:47 TSH 2.02 DS: Summary Hospital Course Hospital Course: Patient is a 52-year-old female with hx of depression, anxiety, opioid and cocaine abuse, currently on methadone, who [facility] [place] [facility]) who presents to the ED following a near syncopal episode at home; on presentation, she reports she is anxious, depressed and suicidal in face of being off Clonazepam and having relapsed on opiates and cocaine. Withdrawal from benzos mild given low dose -patient remains with suicidal ideation and is feeling hopeless. Likely contributory is patients hx of trauma, including loss of a child, that seems to be only partially processed and of which she is reticent about during admissions; patient has few community supports and has other contributing psychosocial stressors such as possible eviction. ? She agrees to restart her medication regimen at last 5 admission. On admission patient was quite depressed, anxious and with passive SI. Initially she was talking very little and stayed in bed most of the time. She wanted to get back on Zoloft since she had done well in the past but was taken off due to prolonged QTC. Patient said she was restarted on this at last admission and QTC was fine. Wood Turning Lathe Operator agreed and fluvoxamine and Risperdal were discontinued. Patient was titrated on Zoloft and QTC monitored which remained grossly within normal; results were discussed with patient who agreed to continue with medication. Patient did struggle sleep and benefited from Seroquel p.r.n.. She did have some signs of tardive dyskinesia which was discussed with patient, including risks of continue with Seroquel, however she want to continue with current medication regimen. Patient's mood significantly improved and depression abated. She was once again talking freely and in the milieu much more often. SI fully resolved. Patient started sleeping better as well and benefited from clonidine at bedtime. In the past, patient says she was on Zoloft 200 mg; however Patient's mood remains stable at Zoloft 125 mg, possibly because she also remained on mirtazapine and BuSpar. Patient attended groups. She otherwise mostly kept to herself. She declined substance abuse program and declined partial, saying she rather just get back involved in 1 on 1 therapy. Her eviction court hearing was continued and patient found this relieving. Patient remained in a good mood, future oriented with noticeably brighter affect, tolerating medications and feeling ready for discharge. She was not in imminent risk for harm to self or others, appropriate to return to the community for care and her request for discharge honored. Time spent discussing smoking cessation with patient: 3 to 10 minutes Status at Discharge Functional status at discharge: independent ambulation Overall status at discharge: patient is back to baseline Time Spent with Patient Time attestation: Total time managing care of this patient today ____ minutes. Time spent: Less than 30 minutes Discharge Plan Discharge Anticipated Discharge Date/Time: 04/27/22 19:00 Patient Disposition: Home, Self-Care Discharge Diagnosis: MDD, recurrent, severe in full remission Referrals: [facility] [Other] - Tomorrow (Follow-up discharge appointment with psychiatrist Patient will need to follow-up after discharge as appointments were not provided by agency prior to discharge.) Physician,None [Primary Care Provider] - 1 Week Discharge Medications: New clonidine HCl 0.1 mg Tablet 0.05 mg PO BEDTIME 30 Days Qty: 15 0RF Protocol: Hold for SBP< HOLD for SBP < : 90 buspirone 5 mg Tablet 15 mg PO TID 30 Days Qty: 270 0RF hydroxyzine HCl 50 mg tablet 50 mg PO TID PRN (Reason: anxiety) 30 Days Qty: 60 0RF mirtazapine 7.5 mg Tablet 7.5 mg PO BEDTIME 30 Days Qty: 30 0RF quetiapine 100 mg Tablet 100 mg PO BEDTIME PRN (Reason: insomnia) 30 Days Qty: 30 0RF sertraline 100 mg tablet 100 mg PO DAILY 30 Days Qty: 30 0RF Rx Instructions: take with 25mg tab sertraline 25 mg tablet 25 mg PO DAILY 30 Days Qty: 30 0RF Rx Instructions: take with 100mg tab Continued methadone [Methadose] 10 mg/mL concentrate 85 mg PO DAILY Rx Instructions: Partial Fill upon patient request. albuterol sulfate [ProAir HFA] 90 mcg/actuation HFA aerosol inhaler 2 puff inhalation Q4H PRN (Reason: wheezing) 30 Days Qty: 6.7 0RF clonazepam 1 mg tablet See Rx Instructions .ROUTE .COMPLEX 15 Days Qty: 23 1RF Rx Instructions: take 1/2 BID prn for anxiety; take 1 tab at bedtime prn for anxiety Discontinued buspirone 10 mg tablet 1 tab PO TID sertraline 50 mg tablet 75 mg PO DAILY clonazepam 1 mg tablet 0.5 mg PO BID PRN (Reason: Anxiety) Discharge Orders: Discharge Order (Routine); Ordered 04/27/22 Ordered By: Bhupinder Chavez Diet: Regular diet Activity on Discharge: As tolerated Stand Alone Forms: Patient Portal Discharge page Care Plan Goals: Maintain mood and safe behaviors Take medications as prescribed Continue to pursue sobriety Practice coping skills Continue with outpatient providers and reach out to them as needed Health Concerns: Mood stability and behaviors Sobriety Plan of Treatment: Follow up with your PCP, psychiatric provider and other outpatient providers regarding above concerns Take medications as prescribed Assessment: Risk assessment at time of discharge:? Patient was interviewed prior to discharge and found to be fully oriented and without any SI or HI. Patient has insight and demonstrates good judgment in terms of wanting to pursue treatment. Patient is not in imminent risk of harm to self or others and has a safety plan that includes presenting to the closest ER or calling 911 if feeling unsafe.? Patient has been observed closely by nursing and unit staff throughout admission; patient has not engaged in any behaviors that suggest dangerousness to self or others and has demonstrated appropriate behaviors and impulse control
== END 2022-04-27 14:00 | disposition home or self-care (01) | DRG 751 ==
LOC: HO.ED 04-13 16:48 → HO.PM5 04-14 16:13
PROVIDERS: Admitting Provider Psychiatry & Neurology Psychiatry; Emergency Provider Emergency Medicine Emergency Medical Services; Visit Provider Psychiatry & Neurology Psychiatry
DX: F33.2 Major depressive disorder, recurrent severe without psychotic features (principal); R45.851 Suicidal ideations; F11.20 Opioid dependence, uncomplicated; J44.9 Chronic obstructive pulmonary disease, unspecified; F43.10 Post-traumatic stress disorder, unspecified; F14.20 Cocaine dependence, uncomplicated; F17.210 Nicotine dependence, cigarettes, uncomplicated; Z20.822 Contact with and (suspected) exposure to COVID-19; Z71.6 Tobacco abuse counseling; Z91.51 Personal history of suicidal behavior; Z88.1 Allergy status to other antibiotic agents; Z88.2 Allergy status to sulfonamides; Z88.6 Allergy status to analgesic agent; Z88.8 Allergy status to other drugs, medicaments and biological substances; Z79.899 Other long term (current) drug therapy
CPT/HCPCS: 0241U; 36415; 80053; 80307; 84443; 84484; 85025; 93005; 99285

== ENCOUNTER 2023-05-06 12:40 | Observation (INO) | payer OTHER, SELFPAY ==
[2023-05-06 12:57] VITALS: BP 107/66; PULSE 80; RESP 18; TEMP 36.6; O2SAT 98; BMI 21.3
[2023-05-06] MEDS: clonazePAM 1 MG TABLET PO (13:38)
--- NOTE | 2023-05-06 13:40 | ED_ITS ---
HPI - Psych General Chief Complaint: Psychiatric Symptoms Stated Complaint: si crisis Time Seen by Provider: 05/06/23 12:55 Source: patient Mode of arrival: ambulatory Limitations: no limitations History of Present Illness HPI Narrative: 53 yo female with PMH of PTSD, opiate dependence, anxiety, here with c/o getting weaned down on benzos to just 0.5mg a day and now dabbling in crack cocaine the last couple of days she is anxious and has SI. She is not taking her meds as she should. MD complaint: suicidal ideation, feels depressed, anxiety and substance abuse Onset (ago): day(s) (few) Duration: intermittent History of same: Yes Relieving factors: none Exacerbating factors: drug use Context: recent drug abuse and not taking psychiatric medications Associated psychiatric symptoms: depression and suicidal ideation Associated symptoms: denies other symptoms If self harm: admits thoughts of self harm Related Data Home Medications Medication Instructions Recorded Confirmed methadone 10 mg/mL oral 85 mg PO DAILY 04/13/22 04/13/22 concentrate (Methadose) Previous Rx's Medication Instructions Recorded albuterol sulfate 90 mcg/actuation 2 puff inhalation Q4H PRN wheezing 04/27/22 aerosol inhaler (ProAir HFA) 30 days #6.7 grams buspirone 5 mg tablet 15 mg (3 x 5 mg) PO TID 30 days 04/27/22 #270 tabs clonazepam 1 mg tablet (Klonopin) 1 mg PO .PRN #23 tabs 04/27/22 clonidine HCl 0.1 mg tablet 0.05 mg PO BEDTIME 30 days #15 tabs 04/27/22 hydroxyzine HCl 50 mg tablet 50 mg PO TID PRN anxiety 30 days 04/27/22 #60 tabs mirtazapine 7.5 mg tablet 7.5 mg PO BEDTIME 30 days #30 tabs 04/27/22 quetiapine 100 mg tablet 100 mg PO BEDTIME PRN insomnia 30 04/27/22 days #30 tabs sertraline 100 mg tablet 100 mg PO DAILY 30 days #30 tabs 04/27/22 sertraline 25 mg tablet 25 mg PO DAILY 30 days #30 tabs 04/27/22 Allergies Allergy/AdvReac Type Severity Reaction Status Date / Time trazodone [TRAZODONE] Allergy Severe SHORTNESS Verified 05/06/23 12:55 OF BREATH, GASPING FOR AIR , SOB aspirin [ASPIRIN] Allergy Unknown STOMACH Verified 05/06/23 12:55 UPSET, Nausea, nausa ciprofloxacin [Cipro] Allergy Unknown Rash Verified 05/06/23 12:55 promethazine [Phenergan] Allergy Unknown Hives Verified 05/06/23 12:55 Sulfa (Sulfonamide Allergy Unknown Unknown Verified 05/06/23 12:55 Antibiotics) Review of Systems 2 Review of Systems: Constitutional : No Fever, No Chills ENT/Mouth : No Ear Pain, No Nasal Congestion, No sore throat Eyes: No Eye Pain, No Swelling, No Redness Cardiovascular : No Chest Pain, No SOB Respiratory : No Cough, No Sputum, No Dyspnea Gastrointestinal : No Nausea, No Vomiting, No Diarrhea, No Hematochezia, No Melena Genitourinary : No Dysuria, No Urinary Frequency, No Hematuria Musculoskeletal : No Myalgias Skin : No Skin Lesions, No rash Neuro : No Weakness, No Numbness, No Paresthesias, No Dizziness, No Headache Psych : positive Anxiety, positive Depression, positive SI no HI Heme/Lymph: No Lymphadenopathy Endocrine : No Polyuria, No Polydipsia All other systems reviewed and are negative PMFSH Past Medical History Attestation statement: The following information was validated with the patient. Source: old records reviewed Medical History Adjustment disorder with mixed disturbance of emotions and conduct in remission Asthma Cocaine use disorder, moderate, dependence COPD (chronic obstructive pulmonary disease) Major depression, recurrent MDD (major depressive disorder), recurrent episode, severe Opioid dependence Post traumatic stress disorder PTSD (post-traumatic stress disorder) Social History Social History Household Members: None Household Members Other:: no Housing: Apartment Do you presently have visiting nurse or other home services: No 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: never Comment: PT is sleeping Patient Tobacco Use Status: Current everyday Tobacco user Tobacco use type: Cigarette Cigarette Packs Per Day: 0.5 Cigarettes Per Day: 10.0 Years Smoked: 40 e-Cigarette/Vaping Use: Currently Using Second Hand Smoke Exposure: Yes Substance Use Type: Crack/Cocaine and Heroin Advance Directives: No Advance Directives Information Provided: Yes Advance Directives Date on File: 09/20/20 service: No Current occupational status: disabled Sexual orientation: Don't Know Physical Exam 2 Vital Signs: Vital Signs: Last Vital Signs Temp 98 F 05/06/23 12:57 Pulse 80 05/06/23 12:57 Resp 18 05/06/23 12:57 BP 107/66 05/06/23 12:57 Pulse Ox 98 05/06/23 12:57 O2 Del Method Room Air 05/06/23 12:57 BMI result Body Mass Index 21.3 Appearance: Alert. Oriented X3. No acute distress. Anxious Eyes: Pupils equal, round and reactive to light. ENT: Pharynx normal. Neck: Normal inspection. Neck supple. CVS: Normal heart rate and rhythm. Pulses normal. Respiratory: No respiratory distress. Breath sounds normal. Abdomen: Soft and non-tender. Skin: Skin warm and dry. Normal skin color. Normal skin turgor. Extremities: No lower extremity edema. No calf ttp Neuro: Oriented X 3. No motor deficit. No sensory deficit. CN2-12 intact Course Course Course Narrative: Physician observation started at 145pm Patient placed in physician observation because the patient needed more time for CARE team to assess the need for psych admission. At the time observation was started the patient's vitals were stable, patient is alert and oriented but slightly anxious, Neuro: nonfocal, CV RRR, Lungs clear Medications Administered Discontinued Medications Generic Name Dose Route Start Last Admin Trade Name Freq PRN Reason Stop Dose Admin Clonazepam 1 mg 05/06/23 13:26 05/06/23 13:38 Clonazepam 1 Mg Tablet PO 05/06/23 13:27 1 mg ONCE ONE Administration Hydroxyzine HCl 50 mg 05/06/23 14:33 05/06/23 15:09 Hydroxyzine Hcl 50 Mg Tablet PO 05/06/23 14:34 50 mg ONCE ONE Administration Medical Decision Making Medical Decision Making [facility] Narrative: 53 yo female with PMH of PTSD, opiate dependence, anxiety, here with SI and anxiety not taking meds as she should and using crack at this time labs, PO klonopin, CARE team consult. Denies medical complaints to me. Differential Diagnosis Differential Diagnoses: The differential diagnosis associated with the presentation includes drug abuse, anxiety, SI Admission/Observation Consideration of admission/observation: Escalation of care including admission/observation considered Consult Healthcare Provider Management of the patient was discussed with: Behavioral Health Provider Lab Data [facility] Lab Attestation statement: I reviewed the patient's lab results. 05/06/23 15:13 05/06/23 15:13 Labs: Lab Results 05/06/23 Range/Units 13:38 Urine Color Dark Yellow Urine Appearance Cloudy Urine pH 5.0 (5.0-9.0) Ur Specific [place] 1.025 (1.005-1.025) Urine Protein Trace (Neg-Trace) mg/dL Urine Glucose (UA) Negative (Negative) mg/dL Urine Ketones Trace (Negative) mg/dL Urine Blood Negative (Negative) Urine Nitrite Negative (Negative) Ur Leukocyte Esterase Small (1+) H (Negative) Urine RBC 0-2 (0-2) /HPF Urine WBC 11-20 H (0-5) /HPF Ur Squamous Epith Cells >20 (0-2) /HPF Urine Bacteria 4+ (None Seen) Hyaline Casts 6-10 (0-2) /LPF Urine Test NEGATIVE (NEGATIVE) Urine Opiates Screen Not Detected (Not Detect) Urine Fentanyl Screen POSITIVE H (Not Detect) Ur Barbiturates Screen Not Detected (Not Detect) Ur Phencyclidine Scrn Not Detected (Not Detect) Ur Amphetamines Screen Not Detected (Not Detect) U Benzodiazepines Scrn POSITIVE H (Not Detect) Urine Cocaine Screen POSITIVE H (Not Detect) U Marijuana (THC) Screen Not Detected (Not Detect) COVID-19 (SAMANTHA) Negative (Negative) COVID-19 Clin Com See Note External Record Review External record reviewed: Inpatient record Social Determinants Patient?s care significantly limited by Social Determinants of Health including: Problems related to primary support group Discharge Plan Discharge Clinical Impression: Suicidal ideation Patient Disposition: Still a Patient Prescriptions: No Action methadone [Methadose] 10 mg/mL concentrate 85 mg PO DAILY Rx Instructions: Partial Fill upon patient request. albuterol sulfate [ProAir HFA] 90 mcg/actuation HFA aerosol inhaler 2 puff inhalation Q4H PRN (Reason: wheezing) 30 Days Qty: 6.7 0RF clonidine HCl 0.1 mg Tablet 0.05 mg PO BEDTIME 30 Days Qty: 15 0RF Protocol: Hold for SBP< HOLD for SBP < : 90 buspirone 5 mg Tablet 15 mg PO TID 30 Days Qty: 270 0RF hydroxyzine HCl 50 mg tablet 50 mg PO TID PRN (Reason: anxiety) 30 Days Qty: 60 0RF mirtazapine 7.5 mg Tablet 7.5 mg PO BEDTIME 30 Days Qty: 30 0RF quetiapine 100 mg Tablet 100 mg PO BEDTIME PRN (Reason: insomnia) 30 Days Qty: 30 0RF sertraline 100 mg tablet 100 mg PO DAILY 30 Days Qty: 30 0RF Rx Instructions: take with 25mg tab sertraline 25 mg tablet 25 mg PO DAILY 30 Days Qty: 30 0RF Rx Instructions: take with 100mg tab clonazepam [Klonopin] 1 mg tablet 1 mg PO .PRN Qty: 23 1RF Rx Instructions: Take 1/2 tablet twice daily as needed for anxiety. Take 1 tablet at bedtime as needed for anxiety
[2023-05-06 13:53] LABS: UPreg QC Valid YES; Urine Pregnancy NEGATIVE (NEGATIVE)
[2023-05-06 13:54] LABS: Amphetamine Screen Urine Not Detected (Not Detect); Appearance Urine Cloudy; Barbiturates, Urine Not Detected (Not Detect); Benzodiazepines Screen Urine POSITIVE (Not Detect); Cannabinoid Screen Urine Not Detected (Not Detect); Cocaine Screen Urine POSITIVE (Not Detect); Color Urine Dark Yellow; Fentanyl, urine POSITIVE (Not Detect); Glucose Urine UA Negative (Negative); Leukocyte Esterase Urine Small (1+) (Negative); Nitrite Urine Negative (Negative); Opiate Screen Urine Not Detected (Not Detect); Phencyclidine Screen Urine Not Detected (Not Detect); Specific Gravity - Urine 1.025 (1.005-1.025); UMIC TRIGGER UACC YES; Urine Blood Negative (Negative); Urine Ketones Trace mg/dL (Negative); Urine Protein Trace mg/dL (Neg-Trace)
[2023-05-06 14:03] LABS: COVID-19 Test Negative (Negative); IDNOW Serial# BCCEAD1C
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
[2023-05-06 14:20] LABS: Bacteria Urine 4+ (None Seen); RBC Urine 0-2 /HPF (0-2); Squamous Epithelial Cell Urine >20 /HPF (0-2); UACC Culture Trigger YES
[2023-05-06] MEDS: hydrOXYzine HCL 50 MG TABLET PO (15:09)
[2023-05-06 15:39] LABS: Alanine Aminotransferase 11 U/L (0-31); Albumin Level 4.1 g/dL (3.5-5.0); Alkaline Phosphatase 84 U/L (39-117); Anion Gap 19 (12-20); Aspartate Amino Transferase 25 U/L (5-31); Bilirubin Direct 0.1 mg/dL (0.0-0.5); Bilirubin Total 0.4 mg/dL (0.0-1.0); Blood Urea Nitrogen 24 mg/dL (9-16); Calcium 10.3 mg/dL (8.4-10.2); Carbon Dioxide 23 mmol/L (22-29); Chloride 105 mmol/L (96-108); Creatinine Clr Calc Pharmacy 60.4; Estimated Glomerular Filt Rate > 60; Ethanol < 10 mg/dL; Glucose Random 89 mg/dL (60-115); Sodium 142 mmol/L (135-145)
[2023-05-06 16:27] VITALS: RESP 17
[2023-05-06 18:26] VITALS: RESP 19
--- NOTE | 2023-05-06 20:05 | HE.PHANOTE ---
RE: methadone Methadone verification from [facility], last dose 80mg on 05/06/23 @0930. Patient brought 4 doses in lock box to ED per nursing note
--- NOTE | 2023-05-07 | ECG_ITS ---
Test Reason : CHECK PROLONG QTC Blood Pressure : / mmHG Vent. Rate : 037 BPM Atrial Rate : 037 BPM P-R Int : 140 ms QRS Dur : 074 ms QT Int : 682 ms P-R-T Axes : -08 031 046 degrees QTc Int : 535 ms Marked sinus bradycardia Prolonged QT Abnormal ECG When compared with ECG of 07-MAY-2023 08:22, Decrease in ventricular rate Referred By: Bree Maravilla Electronically Signed By:JEN TAYLOR
--- NOTE | 2023-05-07 | ECG_ITS ---
Test Reason : Bradycardia Blood Pressure : / mmHG Vent. Rate : 049 BPM Atrial Rate : 049 BPM P-R Int : 160 ms QRS Dur : 084 ms QT Int : 560 ms P-R-T Axes : -09 027 038 degrees QTc Int : 505 ms Sinus bradycardia Prolonged QT Abnormal ECG When compared with ECG of 07-MAY-2023 15:38, QT has shortened Referred By: Vikash Vick Electronically Signed By:JEN TAYLOR
[2023-05-07 06:18] VITALS: BP 82/50; PULSE 53; RESP 16; TEMP 36.6; O2SAT 96
[2023-05-07 07:15] VITALS: BP 97/54; PULSE 48; RESP 16; O2SAT 96
--- NOTE | 2023-05-07 07:16 | PC.NURSE ---
pt awake, eating breakfast in bed. BP recheck, 97/54. improved from hypotensive BP earlier this am. pt provided with salt for breakfast tray. resting quietly back in room. rr even/unlabored. ambulating with steady gait.
[2023-05-07 07:51] LABS: MANUAL DIFF FLAG NO
[2023-05-07 07:53] LABS: Basophils Percent Auto 0.6 % (0-2); Eosinophils Absolute Auto 0.2 X10*3/uL (0.0-0.4); Eosinophils Percent Auto 4.5 % (0-4); Hematocrit 41.6 % (37.0-47.0); Hemoglobin 13.4 g/dl (12.0-16.0); Imm Gran Abs Auto 0.01 X10*3/uL (0.00-0.03); Imm Gran Pct Auto 0.2 % (0.0-0.4); Lymphocytes Absolute Auto 2.8 X10*3/uL (1.2-4.9); Mean Corpuscular HGB Conc 32.2 g/dl (31.0-35.0); Mean Corpuscular Hemoglobin 29.6 pg (27.0-33.0); Mean Platelet Volume 12.3 fL (9.4-12.3); Monocytes Absolute Auto 0.7 X10*3/uL (0.1-1.2); Monocytes Percent Auto 13.4 % (2-11); Neutrophils Absolute Auto 1.5 x10*3/uL (2.0-8.3); Neutrophils Percent Auto 28.3 % (45-73); Platelet Count 190 X10*3/uL (160-400); Red Blood Count 4.52 X10*6/uL (4.20-5.50); Red Cell Distribution Width 14.3 % (11.0-16.0); White Blood Count 5.3 X10*3/uL (4.8-10.8)
--- NOTE | 2023-05-07 08:17 | ECG_ITS ---
Test Reason : PSYCH Blood Pressure : / mmHG Vent. Rate : 047 BPM Atrial Rate : 047 BPM P-R Int : 150 ms QRS Dur : 076 ms QT Int : 602 ms P-R-T Axes : -16 029 042 degrees QTc Int : 532 ms Sinus bradycardia Prolonged QT Abnormal ECG When compared with ECG of 23-APR-2022 10:15, T wave inversion now evident in Anterior leads QT has lengthened Referred By: Bree Maravilla Electronically Signed By:JEN TAYLOR
--- NOTE | 2023-05-07 08:23 | PC.NURSE ---
called pharmacy for med rec as requested by Dr. Maravilla.
--- NOTE | 2023-05-07 08:51 | PHA.MEDREC ---
Pharmacy Consult ? Medication Reconciliation Pharmacy has completed the medication reconciliation. Pt reports only being on baclofen, olanzapine, and klonopin, with methadone.
[2023-05-07] MEDS: Magnesium Oxide 400 MG TABLET 800 MG PO (09:19)
[2023-05-07] MEDS: methADONE HCl 20 MG/2 ML ORAL.CONC 80 MG PO (09:19)
[2023-05-07] MEDS: LORazepam 1 MG TABLET PO (09:52)
--- NOTE | 2023-05-07 09:53 | PC.NURSE ---
pt provided with vanilla ice cream and orange sherbert. pt medicated per jul for anxiety.
--- NOTE | 2023-05-07 10:43 | PC.NURSE ---
order by Dr. Maravilla to repeat EKG at 1200. pt medicated for prolonged QTc.
[2023-05-07] MEDS: Baclofen 10 MG TABLET PO ×2 (11:29→20:54)
--- NOTE | 2023-05-07 11:29 | PC.NURSE ---
Assumed care of patient at 1100. Pt is calm and coopertive, walking around ED, offers no complaints to this RN, provided with crackers anc juice per her request. Continue plan of care for inpt admission
--- NOTE | 2023-05-07 11:35 | PC.NURSE ---
Spoke with pt, expresses continued SI without plan and reports can ask for help if feelings become overwhelming. Denies HI/AH/VH. Expressed hunger, provided sandwich. Continued bed search, pt undertands plan and offers no questions @ this time.
--- NOTE | 2023-05-07 12:19 | PC.NURSE ---
EKG repeated and continues to show prolonged QTC, Dr. Maravilla ordered fluids and magnesium. Called [facility] back to let them know pt needs medical clearance again prior to going upstairs
[2023-05-07] MEDS: 0.9 % Sodium Chloride 1,000 ML 999 ML IV (13:17)
[2023-05-07] MEDS: Magnesium Sulfate/H2O 2 GM/50 ML PIGGYBACK IV (13:27)
[2023-05-07 14:26] VITALS: BP 90/46; PULSE 50; RESP 12; O2SAT 97
[2023-05-07 14:45] LABS: Magnesium 2.5 mg/dL (1.6-2.6)
--- NOTE | 2023-05-07 15:29 | ECG_ITS ---
Test Reason : CHECK QTC Blood Pressure : / mmHG Vent. Rate : 051 BPM Atrial Rate : 051 BPM P-R Int : 160 ms QRS Dur : 074 ms QT Int : 620 ms P-R-T Axes : -13 028 041 degrees QTc Int : 571 ms Sinus bradycardia Prolonged QT Abnormal ECG When compared with ECG of 07-MAY-2023 12:04, No significant change was found Referred By: Bree Maravilla Electronically Signed By:JEN TAYLOR
[2023-05-07] MEDS: OLANZapine 2.5 MG TABLET PO (16:12)
--- NOTE | 2023-05-07 16:42 | MHC.RECOVRN ---
Met with pt in ED10 after consult placed to Addiction Medicine for prolonged qtc on methadone. Pt had presented to the ED with substance use, depression, and SI. Upon evaluation, pt found to have qtc this morning of 532 and at 3:30PM it was 571. Subsequently admitted to the hospital. Pt is currently receiving methadone through [facility], currently 80 mg daily. Pt reports she has been taking methadone over a year and had decreased from 90 mg a couple months ago. Discussed qtc effects of methadone with pt, informed her medication may need to be held. Pt has been on Suboxone in the past, did not find it helpful because it did not address chronic pain. Pts goal is to continue methadone. Discussed with ED provider and hospitalist. Plan to hold methadone and utilize full agonist opioids to address any withdrawal symptoms. Pharmacy to [facility] hospitalist with medication recommendation. Will continue to follow.
[2023-05-07] MEDS: clonazePAM 0.5 MG TABLET PO (17:48)
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
--- NOTE | 2023-05-07 18:18 | PM.IMHP ---
History of Present Illness Date of Service: 05/07/23 Attending physician on admission: Fam Mg Chief Complaint: SI 52-year-old female with pmhx COPD, substance use, depression: c/o getting weaned down on benzos and now dabbling in crack cocaine the last couple of days she is anxious and has SI Came to the hospital : During initial hospital workup found to have QTC of 523 range, ED physician discussed the case with Cardiology and requested admission for observation on tele for QTC prolongation, in addition patient was given IV magnesium also Ativan. Otherwise patient is asymptomatic denies any systemic complaints including chest pain or shortness of breath or abdominal pain or fever or chills or nausea or vomiting or cough or any weakness or numbness. In addition patient is on methadone at home due to substance use. Patient has sitter and sectioned as per ED. Lab imaging EKG reviewed: CBC, BMP seems fine, electrolytes are fine accept slightly borderline elevated calcium 10.3. EKG shows QTC of 571 millisecond. In ED: Patient received Ativan, magnesium, clonazepam. Review of Systems Review of Systems: Yes all other systems are reviewed and are negative [facility] Medical History Adjustment disorder with mixed disturbance of emotions and conduct in remission Opioid dependence PTSD (post-traumatic stress disorder) MDD (major depressive disorder), recurrent episode, severe COPD (chronic obstructive pulmonary disease) Asthma Cocaine use disorder, moderate, dependence Post traumatic stress disorder Major depression, recurrent Social History Household Members: None Household Members Other:: no Housing: Apartment Do you presently have visiting nurse or other home services: No 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: never Comment: PT is sleeping Patient Tobacco Use Status: Current everyday Tobacco user Tobacco use type: Cigarette Cigarette Packs Per Day: 0.5 Cigarettes Per Day: 10.0 Years Smoked: 40 Smoked in Last 30 Days: Yes e-Cigarette/Vaping Use: Currently Using Second Hand Smoke Exposure: Yes Use of substances other than those prescribed or required for medical reasons: Yes Substance Use Type: Crack/Cocaine Advance Directives: No Advance Directives Information Provided: Yes Advance Directives Date on File: 09/20/20 service: No Current occupational status: disabled Sexual orientation: Don't Know Meds Allergies Allergy/AdvReac Type Severity Reaction Status Date / Time trazodone [TRAZODONE] Allergy Severe SHORTNESS Verified 05/06/23 12:55 OF BREATH, GASPING FOR AIR , SOB aspirin [ASPIRIN] Allergy Unknown STOMACH Verified 05/06/23 12:55 UPSET, Nausea, nausa ciprofloxacin [Cipro] Allergy Unknown Rash Verified 05/06/23 12:55 promethazine [Phenergan] Allergy Unknown Hives Verified 05/06/23 12:55 Sulfa (Sulfonamide Allergy Unknown Unknown Verified 05/06/23 12:55 Antibiotics) Active Medications: Current Medications Baclofen (Baclofen 10 Mg Tablet) 10 mg PO TID PRN PRN Reason: anxiety Last Admin: 05/07/23 11:29 Dose: 10 mg Clonazepam (Clonazepam 0.5 Mg Tablet) 0.5 mg PO BID PRN PRN Reason: Anxiety Last Admin: 05/07/23 17:48 Dose: 0.5 mg Clonazepam (Clonazepam 1 Mg Tablet) 1 mg PO BEDTIME PRN PRN Reason: Anxiety Sodium Chloride (Ns) 1,000 mls @ 100 mls/hr IVCONT .Q10H [facility] Olanzapine (Olanzapine 2.5 Mg Tablet) 2.5 mg PO BID PRN PRN Reason: Anxiety Last Admin: 05/07/23 16:12 Dose: 2.5 mg Sodium Chloride (0.9 % Sodium Chloride Flush 3 Ml Syringe) 3 ml IVFLUSH QSHIFT [facility] Home Medications Medication Instructions Recorded Confirmed Last Taken Type methadone 10 mg/mL oral 80 mg PO DAILY 04/13/22 05/06/23 05/06/23 History concentrate (Methadose) baclofen 10 mg tablet 10 mg PO TID PRN anxiety 05/07/23 05/07/23 2 Days Ago History ~05/05/23 clonazepam 1 mg tablet 0.5 mg PO BID PRN Anxiety 05/07/23 05/07/23 2 Days Ago History ~05/05/23 clonazepam 1 mg tablet (Klonopin) 1 mg PO BEDTIME PRN Anxiety 05/07/23 05/07/23 2 Days Ago History ~05/05/23 olanzapine 2.5 mg tablet 2.5 mg PO BID PRN Anxiety 05/07/23 05/07/23 2 Days Ago History ~05/05/23 Physical Exam Vital Signs and Narrative: Vital Signs: Last Vital Signs Temp 97.9 F 05/07/23 06:18 Pulse 50 05/07/23 14:26 Resp 12 05/07/23 14:26 BP 90/46 L 05/07/23 14:26 Pulse Ox 97 05/07/23 14:26 O2 Del Method Room Air 05/07/23 14:26 BMI result Body Mass Index 21.3 Appearance: Alert.? Oriented X3.? not in distress.? Eyes: Pupils equal, round and reactive to light.? Sclera nonicteric.? ENT: Pharynx normal.? Moist mucous membranes. cvs: rrr, [id number] . res: clear to auscultation ,no rhonchii or wheezing abd: no rebound or guarding ,nt, bs present. ext pulses present , no cyanosis . neuro: axo3 , nonfocal. Results Labs 05/07/23 07:46 05/06/23 15:13 Labs: Laboratory Results - last 24 hr 05/06/23 05/07/23 05/07/23 15:13 07:46 14:11 MCV Cancelled 92.0 MCH Cancelled 29.6 MCHC Cancelled 32.2 RDW Cancelled 14.3 Plt Count Cancelled 190 MPV Cancelled 12.3 Immature Gran % (Auto) Cancelled 0.2 Neut % (Auto) Cancelled 28.3 L Lymph % (Auto) Cancelled 53.0 H Sampson % (Auto) Cancelled 13.4 H Eos % (Auto) Cancelled 4.5 H Baso % (Auto) Cancelled 0.6 Lymph # (Auto) Cancelled 2.8 Sampson # (Auto) Cancelled 0.7 Eos # (Auto) Cancelled 0.2 Baso # (Auto) Cancelled 0.0 Abs Immat Gran (auto) Cancelled 0.01 Absolute Neuts (auto) Cancelled 1.5 L Absolute Nucleated RBC Cancelled 0.000 Nucleated RBC % (auto) Cancelled 0.0 Magnesium 2.5 Assessment and Plan (1) Prolonged QT interval: Status: Acute (2) Suicidal ideation: Status: Acute Plan 52-year-old female with pmhx COPD, substance use, depression-came with so suicidal ideation,substance use on methadone, found to have prolonged QT. Prolonged QT Telemetry Electrolytes seems fine, hold methadone Cardiology evaluation Depression with suicidal ideation: Continue home medications Psych evaluation , sitter, sectioned Patient will need BH and clearance before discharge. COPD: Stable No wheezing P.r.n. nebs Substance use: U tox is currently positive for fentanyl, cocaine Strongly advised to abstain from substance use. Methadone is on hold due to QTC prolongation Patient took her methadone dose this morning which will be hold for tomorrow. Care team is following for further plan of methadone use? DVT prophylaxis: SubQ Lovenox Patient has prolonged QT and risk of cardiac arrhythmia-needs to be monitored on telemetry as well as electrolytes monitoring, need expert consultation, as well as patient might need to monitor for any opioid withdrawal symptoms since currently methadone on hold. Above management discussed with the patient in detail length she understand and agreement with the above plan, time spent 70 minute. Quality Stroke Does the patient have a stroke diagnosis?: No VTE Prior VTE?: No VTE Risk Level:: Medical - moderate - high VTE Device Contraindication: N/A - Device Ordered VTE Drug Contraindication: N/A - Med Ordered
--- NOTE | 2023-05-07 18:23 | MHC.CARE ---
Azure Developer spoke with Charge Nurse in ED-plan is for patient to be medically admitted and placed on Section 12. She will be re-assessed by CARE Team after medical clearance. MD in agreement. Azure Developer spoke with patient and provided reassurance as RN reports she was 'worried about losing her [facility] psych bed' and was still wanting to receive psychiatric treatment.
[2023-05-07 19:17] VITALS: BP 106/46; PULSE 52; RESP 12; O2SAT 97
[2023-05-07] MEDS: 0.9 % Sodium Chloride 1,000 ML 100 ML IVCONT (19:30)
--- NOTE | 2023-05-07 19:35 | PC.NURSE ---
this rn assumed care of pt @ 1900. per previous shift rn fluids not hung due to iv line blown . this rn and pharmacist in charge owner assessed line pt tolerated well no s/s of infiltration. ivf initiated according to jul. 1:[address]
[2023-05-07 20:24] VITALS: BMI 22.6
[2023-05-07] MEDS: clonazePAM 1 MG TABLET PO (20:55)
[2023-05-07 22:00] VITALS: BP 102/61; PULSE 50; RESP 18; TEMP 37.1; O2SAT 96
--- NOTE | 2023-05-07 22:14 | PC.NURSE ---
Pt belongings completed and in the system. Pt also came with her own red lock box with Methadone containers in there, 10 empty bottles and 4 with contents in there. Med rec completed and pt signed. Pharmacy has the lock box with the medication in there. Copies of med rec in pt binder for when pt gets discharged.
[2023-05-07 23:01] VITALS: BP 106/60; PULSE 50; RESP 18; TEMP 36.7; O2SAT 96
--- NOTE | 2023-05-08 | ECG_ITS ---
Test Reason : qtc prolonged Blood Pressure : / mmHG Vent. Rate : 049 BPM Atrial Rate : 049 BPM P-R Int : 168 ms QRS Dur : 074 ms QT Int : 504 ms P-R-T Axes : 011 024 025 degrees QTc Int : 455 ms Sinus bradycardia Otherwise normal ECG When compared with ECG of 07-MAY-2023 23:34, No significant change was found Referred By: Fam Mg Electronically Signed By:JEN TAYLOR
[2023-05-08] MEDS: 0.9 % Sodium Chloride 1,000 ML 100 ML IVCONT (03:51)
[2023-05-08 04:00] VITALS: BP 120/62; PULSE 67; RESP 18; TEMP 36.2; O2SAT 96
[2023-05-08 07:47] VITALS: BP 118/59; PULSE 50; RESP 18; TEMP 37.1; O2SAT 97
[2023-05-08 08:19] LABS: Anion Gap 9 (12-20); Blood Urea Nitrogen 19 mg/dL (9-16); Calcium 9.3 mg/dL (8.4-10.2); Carbon Dioxide 26 mmol/L (22-29); Chloride 111 mmol/L (96-108); Creatinine Clr Calc Pharmacy 76.8; Estimated Glomerular Filt Rate > 60; Glucose Random 75 mg/dL (60-115); Magnesium 2.1 mg/dL (1.6-2.6); Potassium 4.5 mmol/L (3.3-5.1); Sodium 141 mmol/L (135-145)
[2023-05-08] MEDS: Baclofen 10 MG TABLET PO ×2 (08:34→15:43)
[2023-05-08] MEDS: clonazePAM 0.5 MG TABLET PO (08:34)
[2023-05-08] MEDS: 0.9 % Sodium Chloride Flush 3 ML SYRINGE IVFLUSH (08:35)
--- NOTE | 2023-05-08 08:45 | MHC.RECOVRN ---
Spoke with Dr. Ashwini Macdonald, biomedical engineering technologist of [facility] Substance Use Disorders, regarding pts prolonged qtc and methadone dosing recommendations. Per Dr. Macdonald, suggestion would be to split dose- 40 mg BID. [place] text sent to provider and stamp pad finisher with recommendation.
--- NOTE | 2023-05-08 08:59 | MHC.CM.PN ---
CM met with Patient at bedside and addressed FRIEND with her, providing Patient with the original and a copy has been placed on the chart. Patient states that the listed address is no longer accurate; she has been staying with a Friend. Patient receives her Methadone from [facility] in [place] and she was unable to provide information regarding her PCP. DC plan is pending Recovery Team and Care Team LOC Eval(SI). CM has initiated and will follow for dc planning.
--- NOTE | 2023-05-08 10:35 | PM.CNCAR ---
History of Present Illness History of Present Illness Date of Service: 05/08/23 Chief complaint: QTC prolongation Narrative: This is a cardiology consultation regarding prolonged QT interval. Patient has a history of polysubstance abuse. She came to the hospital for suicidal ideation. In this context, she was found to have prolonged QT and because of that she has been admitted. She is positive for cocaine, fentanyl, benzos. There is no cardiac complaints like chest pain or shortness of breath or syncope. It seems that she has been doing drugs for a long time. Denies any cardiac history otherwise. Review of Systems Review of Systems: Yes all other systems are reviewed and are negative Constitutional: Constitutional: Reports as per HPI and Reports no additional constitutional complaints Eyes: Eyes: Reports as per HPI and Denies no additional eye complaints ENT: Denies system reviewed and no additional complaints, except as documented and Reports as per HPI Cardiovascular: Cardiovascular: Reports as per HPI, Reports no additional cardiovascular complaints, Denies acrocyanosis, Denies cool extremities, Denies chest pain, Denies leg edema, Denies lightheadedness, Denies palpitations and Denies dyspnea Respiratory: Respiratory: Reports as per HPI, Denies no additional respiratory complaints and Denies dyspnea Gastrointestinal: Gastrointestinal: Reports as per HPI and Denies no additional gastrointestinal complaints Genitourinary: Genitourinary: Reports as per HPI Musculoskeletal: Musculoskeletal: Reports no additional musculoskeletal complaints and Reports as per HPI Integumentary/Breasts: Skin/Breast: Reports system reviewed and no additional complaints, except as docu Neurologic: Reports system reviewed and no additional complaints, except as documented and Reports as per HPI Psychiatric: Psychiatric: Reports no additional psychiatric complaints and Reports as per HPI Endocrine: Endocrine: Reports no additional endocrine complaints, Reports as per HPI and Denies palpitations Hematologic/Lymphatic: Hematologic/Lymphatic: Reports no additional hematologic/lymphatic complaints and Reports as per HPI Allergic/Immunologic: Allergic/Immunologic: Reports no additional allergic/immunologic complaints and Reports as per HPI [facility] Past Medical History Medical History Adjustment disorder with mixed disturbance of emotions and conduct in remission Opioid dependence PTSD (post-traumatic stress disorder) MDD (major depressive disorder), recurrent episode, severe COPD (chronic obstructive pulmonary disease) Asthma Cocaine use disorder, moderate, dependence Post traumatic stress disorder Major depression, recurrent Family History Pertinent family history: No pertinent family history Social History Social History Household Members: None Household Members Other:: no Housing: Homeless Do you presently have visiting nurse or other home services: No 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: never Comment: PT is sleeping Patient Tobacco Use Status: Current someday Tobacco user Tobacco use type: Cigarette Cigarette Packs Per Day: 0.5 Cigarettes Per Day: 10.0 Years Smoked: 40 e-Cigarette/Vaping Use: Currently Using Second Hand Smoke Exposure: Yes Substance Use Type: Crack/Cocaine Advance Directives Date on File: 09/20/20 service: No Current occupational status: disabled Sexual orientation: Don't Know Meds Allergies Allergy/AdvReac Type Severity Reaction Status Date / Time trazodone [TRAZODONE] Allergy Severe SHORTNESS Verified 05/06/23 12:55 OF BREATH, GASPING FOR AIR , SOB aspirin [ASPIRIN] Allergy Unknown STOMACH Verified 05/06/23 12:55 UPSET, Nausea, nausa ciprofloxacin [Cipro] Allergy Unknown Rash Verified 05/06/23 12:55 promethazine [Phenergan] Allergy Unknown Hives Verified 05/06/23 12:55 Sulfa (Sulfonamide Allergy Unknown Unknown Verified 05/06/23 12:55 Antibiotics) Active Medications: Current Medications Baclofen (Baclofen 10 Mg Tablet) 10 mg PO TID PRN PRN Reason: anxiety Last Admin: 05/08/23 08:34 Dose: 10 mg Clonazepam (Clonazepam 0.5 Mg Tablet) 0.5 mg PO BID PRN PRN Reason: Anxiety Last Admin: 05/08/23 08:34 Dose: 0.5 mg Clonazepam (Clonazepam 1 Mg Tablet) 1 mg PO BEDTIME PRN PRN Reason: Anxiety Last Admin: 05/07/23 20:55 Dose: 1 mg Enoxaparin Sodium (Enoxaparin Sodium 40 Mg/0.4 Ml Syringe) 40 mg SUBCUT Q24H [facility] Last Admin: 05/07/23 20:54 Dose: Not Given Sodium Chloride (Ns) 1,000 mls @ 100 mls/hr IVCONT .Q10H [facility] Last Admin: 05/08/23 03:51 Dose: 100 mls/hr Methadone HCl (Methadone Hcl 20 Mg/2 Ml Oral.Conc) 40 mg PO BID [facility] Olanzapine (Olanzapine 2.5 Mg Tablet) 2.5 mg PO BID PRN PRN Reason: Anxiety Last Admin: 05/07/23 16:12 Dose: 2.5 mg Sodium Chloride (0.9 % Sodium Chloride Flush 3 Ml Syringe) 3 ml IVFLUSH QSHIFT [facility] Last Admin: 05/08/23 08:35 Dose: 3 ml Home Medications Medication Instructions Recorded Confirmed Last Taken Type methadone 10 mg/mL oral 80 mg PO DAILY 04/13/22 05/06/23 05/06/23 History concentrate (Methadose) baclofen 10 mg tablet 10 mg PO TID PRN anxiety 05/07/23 05/07/23 2 Days Ago History ~05/05/23 clonazepam 1 mg tablet 0.5 mg PO BID PRN Anxiety 05/07/23 05/07/23 2 Days Ago History ~05/05/23 clonazepam 1 mg tablet (Klonopin) 1 mg PO BEDTIME PRN Anxiety 05/07/23 05/07/23 2 Days Ago History ~05/05/23 olanzapine 2.5 mg tablet 2.5 mg PO BID PRN Anxiety 05/07/23 05/07/23 2 Days Ago History ~05/05/23 Physical Exam Vital Signs: Vital Signs: Last Vital Signs Temp 98.8 F 05/08/23 07:47 Pulse 50 05/08/23 07:47 Resp 18 05/08/23 07:47 BP 118/59 L 05/08/23 07:47 Pulse Ox 97 05/08/23 07:47 O2 Del Method Room Air 05/08/23 07:47 BMI result Body Mass Index 22.6 Const: General: comfortable and no acute distress Orientation/consciousness: patient oriented x3 HEENT: Other: Unremarkable Head: Yes normal to inspection Neck: Neck: Yes normal visual inspection Chest: Chest palpation & inspection: normal inspection of the chest Resp: Auscultation: clear to auscultation bilaterally Cardio: Palpation: normal PMI Heart sounds: S1 normal heart sound present, S2 normal heart sound present, no gallops, Murmur heart sound present systolic II/ and no rubs GI: Palpation (GI): Soft to palpation Back/Spine/Pelvis: Other: unremarkable Skin: General skin exam: no rashes or lesions noted Neuro: General: patient oriented x3 Extrem: General: Yes normal to inspection Psych: Mental Status: mental status grossly normal Objective Labs and Meds 05/07/23 07:46 05/08/23 07:55 Lab results: Laboratory Results - last 24 hr 05/07/23 05/08/23 14:11 07:55 Sodium 141 Potassium 4.5 Chloride 111 H Carbon Dioxide 26 Anion Gap 9 L BUN 19 H Creatinine 0.70 Estim Creat Clear Calc 76.8 Estimated GFR > 60 Random Glucose 75 Calcium 9.3 D Magnesium 2.5 2.1 ECG Interpretation: In the initial EKG, she had significant sinus bradycardia at 47/Min and corrected QT was 532 milliseconds. In the follow EKG, it was 535 milliseconds. One further EKG with 571 milliseconds. Then it started coming down and most recently, 455 milliseconds. Heart rate is 49/Min. Assessment and Plan (1) Prolonged QT interval: Status: Acute (2) Polysubstance (including opioids) dependence with physiol dependence: Status: Acute (3) Suicidal ideation: Status: Acute Plan Drug screen positive for cocaine, benzo, fentanyl. Prolonged QTs in the EKGs as above with sinus bradycardia but corrected QT is back to normal now. QT prolongations all related to drug use as well as methadone. Discussed with patient about these. Not sure how much she understands. With prolonged QT, there is a risk of polymorphic VT. Methadone dose may have to be adjusted accordingly. Once breath sounds resume, we can get another EKG tomorrow for QT. Obtain echocardiogram as she has a cardiac murmur which could be from valvular heart disease related to drug use/previous endocarditis but do not think anything is acute now. Discussed with Dr. Mg who will communicate with psychiatry as the patient will be transferred there. Also discussed with Dr. Maravilla from ER at time of admission. Procedures Date of Service Date of Service: 05/08/23
[2023-05-08] MEDS: methADONE HCl 20 MG/2 ML ORAL.CONC 40 MG PO (11:08)
[2023-05-08 11:42] VITALS: BP 112/55; PULSE 56; RESP 18; TEMP 36.8; O2SAT 96
--- NOTE | 2023-05-08 11:46 | P.PNIM_ITS ---
Subjective Subjective Date of Service: 05/08/23 Interval History: depression/SI,qt prolongation Review of Systems qt seems improving patient denies new c/o Physical Exam 2 Vital Signs: Vital Signs: Last Vital Signs Temp 98.3 F 05/08/23 11:42 Pulse 56 05/08/23 11:42 Resp 18 05/08/23 11:42 BP 112/55 L 05/08/23 11:42 Pulse Ox 96 05/08/23 11:42 O2 Del Method Room Air 05/08/23 11:42 BMI result Body Mass Index 22.6 Appearance: Alert.? Oriented X3.? not in distress.?. cvs: rrr, [id number] . res: clear to auscultation ,no rhonchii or wheezing abd: no rebound or guarding ,nt, bs present. ext pulses present , no cyanosis . neuro: axo3 , nonfocal. Objective Data Active Medications Baclofen (Baclofen 10 Mg Tablet) 10 mg PO TID PRN PRN Reason: anxiety Last Admin: 05/08/23 08:34 Dose: 10 mg Documented By: CARLITOS Clonazepam (Clonazepam 0.5 Mg Tablet) 0.5 mg PO BID PRN PRN Reason: Anxiety Last Admin: 05/08/23 08:34 Dose: 0.5 mg Documented By: CARLITOS Clonazepam (Clonazepam 1 Mg Tablet) 1 mg PO BEDTIME PRN PRN Reason: Anxiety Last Admin: 05/07/23 20:55 Dose: 1 mg Documented By: ROJELIO Enoxaparin Sodium (Enoxaparin Sodium 40 Mg/0.4 Ml Syringe) 40 mg SUBCUT Q24H [facility] Last Admin: 05/07/23 20:54 Dose: Not Given Documented By: ROJELIO Non-Admin Reason: Patient Refused Methadone HCl (Methadone Hcl 20 Mg/2 Ml Oral.Conc) 40 mg PO BID [facility] Last Admin: 05/08/23 11:08 Dose: 40 mg Documented By: CARLITOS Olanzapine (Olanzapine 2.5 Mg Tablet) 2.5 mg PO BID PRN PRN Reason: Anxiety Last Admin: 05/07/23 16:12 Dose: 2.5 mg Documented By: GRETA Sodium Chloride (0.9 % Sodium Chloride Flush 3 Ml Syringe) 3 ml IVFLUSH QSHIFT [facility] Last Admin: 05/08/23 08:35 Dose: 3 ml Documented By: CARLITOS Labs 05/07/23 07:46 05/08/23 07:55 Labs: Laboratory Results - last 24 hr 05/07/23 05/08/23 14:11 07:55 Anion Gap 9 L Estim Creat Clear Calc 76.8 Estimated GFR > 60 Random Glucose 75 Calcium 9.3 D Magnesium 2.5 2.1 Microbiology Microbiology Results: Microbiology 05/06/23 Unknown Urine Culture - Final Urine clean catch - Urine elizabeth top Assessment and Plan Plan 52-year-old female with pmhx COPD, substance use, depression-came with so suicidal ideation,substance use on methadone, found to have prolonged QT. Prolonged QT continue Telemetry ekg repeated -qt improving d/w cardio, addiction team -start methadone . Depression with suicidal ideation: Continue home medications Psych evaluation , sitter, critical access hospital care sandy and psych made aware -patient is clear to go to inpatient psych. COPD: Stable No wheezing P.r.n. nebs Substance use: U tox is currently positive for fentanyl, cocaine Strongly advised to abstain from substance use. DVT prophylaxis: SubQ Lovenox Patient is medically clear to go back to psych. Quality Stroke Does the patient have a stroke diagnosis?: No VTE Prior VTE?: No VTE Risk Level:: Medical - moderate - high VTE Device Contraindication: N/A - Device Ordered VTE Drug Contraindication: N/A - Med Ordered
[2023-05-08] MEDS: OLANZapine 2.5 MG TABLET PO (11:56)
--- NOTE | 2023-05-08 13:59 | P.DS_ITS ---
DS: Providers Provider Date of Service: 05/08/23 Date of admission: 05/07/23 17:51 Date of discharge: 05/08/23 Primary care physician: Unknown Physician Consults: 05/06/23 13:17 Consult to Care Team Stat Comment: Reason for consultation: SI 05/07/23 16:04 Consult to Cardiology Stat Consulting Provider: [facility] Cardiovascular Services Reason for consultation: prolonged qtc Has provider been notified: Yes 05/07/23 16:05 Addiction Medicine Stat Consulting Provider: Addiction Covering Reason for consultation: on methadone prolonged qtc may need to switch Has provider been notified: No 05/07/23 17:53 Consult to Psychiatry Routine Consulting Provider: Psych Covering Reason for consultation: Qtr prolonged - psych med adjustment Has provider been notified: No 05/07/23 17:54 Consult to Cardiology Routine Consulting Provider: [facility] Cardi[facility] Services Reason for consultation: Qtc prolongation Has provider been notified: No 05/07/23 17:55 Consult for Sitter Routine Reason for consultation: SI Has provider been notified: No 05/07/23 17:57 Addiction Medicine Routine Consulting Provider: Addiction Covering Reason for consultation: Substance use on methadone - qtc prolongation Has provider been notified: No 05/08/23 09:35 Consult to Care Team Stat Comment: Reason for consultation: Medically clear need psych inpatient Attending physician on discharge: Fam Mg Discharging clinician: Fam Mg DS: Diagnosis Discharge Diagnosis (1) Prolonged QT interval: Status: Acute (2) Polysubstance (including opioids) dependence with physiol dependence: Status: Acute (3) Suicidal ideation: Status: Acute DS: Summary Hospital Course Hospital Course: 52-year-old female with pmhx COPD, substance use, depression: c/o getting weaned down on benzos and now dabbling in crack cocaine the last couple of days she is anxious and has SI Came to the hospital : During initial hospital workup found to have QTC of 523 range, ED physician discussed the case with Cardiology and requested admission for observation on tele for QTC prolongation, in addition patient was given IV magnesium also Ativan. Otherwise patient is asymptomatic denies any systemic complaints including chest pain or shortness of breath or abdominal pain or fever or chills or nausea or vomiting or cough or any weakness or numbness. In addition patient is on methadone at home due to substance use. Patient has sitter and sectioned as per ED. Lab imaging EKG reviewed: CBC, BMP seems fine, electrolytes are fine accept slightly borderline elevated calcium 10.3. EKG shows QTC of 571 millisecond. In ED: Patient received Ativan, magnesium, clonazepam. hospital course: Patient was admitted for QT prolongation: Initially methadone was placed on hold, electrolytes are normal, monitor on tele-QTC is improving. Seen by Cardiology patient will need EKG and echo in the morning. Addition today in is aware-plan is to switch methadone 40 b.i.d. plan: Please repeat EKG in the morning, also echo Follow-up with Cardiology. Above is discussed with the psych provider in detail length. Assessment plan coordination time spent 50 minute. Time Attestation Discharge coordination time: Greater than 30 minutes Quality: Safe Use of Opioids Does Pt have an Active Cancer Diagnosis on the Problem List?: No Quality: Stroke Does the patient have a stroke diagnosis?: No Physical Exam Vital Signs: Vital Signs: Last Vital Signs Temp 98.3 F 05/08/23 11:42 Pulse 56 05/08/23 11:42 Resp 18 05/08/23 11:42 BP 112/55 L 05/08/23 11:42 Pulse Ox 96 05/08/23 11:42 O2 Del Method Room Air 05/08/23 11:42 BMI result Body Mass Index 22.6 Appearance: Alert.? Oriented X3.? not in distress.depressed /si. cvs: rrr, [id number] . res: clear to auscultation ,no rhonchii or wheezing abd: no rebound or guarding ,nt, bs present. ext pulses present , no cyanosis . neuro: axo3 , nonfocal. DS: Data Data Completed and Pending Completed studies during hospitalization [Text1]: Procedures Insertion of Infusion Device into Right External Jugular Vein, Percutaneous Samara hinson (04/10/20) Ultrasonography of Right Jugular Veins, Guidance (04/10/20) Labs on day of discharge: Laboratory Results - last 24 hr 05/07/23 05/08/23 14:11 07:55 Sodium 141 Potassium 4.5 Chloride 111 H Carbon Dioxide 26 Anion Gap 9 L BUN 19 H Creatinine 0.70 Estim Creat Clear Calc 76.8 Estimated GFR > 60 Random Glucose 75 Calcium 9.3 D Magnesium 2.5 2.1 Discharge Plan Discharge Anticipated Discharge Date/Time: 12/30/23 13:54 Patient Disposition: Xfer Psychiatric Hosp Discharge Diagnosis: qtc prolongation Referrals: Physician,Unknown J [Primary Care Provider] - 1 Week Discharge Medications: No Action methadone [Methadose] 10 mg/mL concentrate 80 mg PO DAILY Rx Instructions: Partial Fill upon patient request. clonazepam 1 mg tablet 0.5 mg PO BID PRN (Reason: Anxiety) olanzapine 2.5 mg tablet 2.5 mg PO BID PRN (Reason: Anxiety) baclofen 10 mg tablet 10 mg PO TID PRN (Reason: anxiety) clonazepam [Klonopin] 1 mg tablet 1 mg PO BEDTIME PRN (Reason: Anxiety) Rx Instructions: Take 1/2 tablet twice daily as needed for anxiety. Take 1 tablet at bedtime as needed for anxiety Discharge Orders: Discharge Order (Routine); Ordered 05/08/23 Ordered By: Fam Mg Diet: Advance to usual diet Activity on Discharge: As tolerated Stand Alone Forms: Patient Portal Discharge page Care Plan Goals: Patient was admitted for QT prolongation: Initially methadone was placed on hold, electrolytes are normal, monitor on tele-QTC is improving. Seen by Cardiology patient will need EKG and echo in the morning. Addition today in is aware-plan is to switch methadone 40 b.i.d. Above is discussed with the psych provider in detail length. Health Concerns: As above. Plan of Treatment: As above.
--- NOTE | 2023-05-08 14:39 | MHC.CM.PN ---
Patient to be dc'd to [facility].
== END 2023-05-08 16:00 ==
LOC: HO.ED 05-07 16:04 → HO.EDOVER 05-07 17:59 → HO.IMC 05-07 19:20
PROVIDERS: Social Worker; Admitting Provider Internal Medicine; Emergency Provider Emergency Medicine; Visit Provider Internal Medicine
DX: R94.31 Abnormal electrocardiogram [ECG] [EKG] (principal); R45.851 Suicidal ideations; F19.20 Other psychoactive substance dependence, uncomplicated; J44.9 Chronic obstructive pulmonary disease, unspecified; F41.9 Anxiety disorder, unspecified; R00.1 Bradycardia, unspecified; F32.A Depression, unspecified; Z11.52 Encounter for screening for COVID-19; Z79.899 Other long term (current) drug therapy
CPT/HCPCS: 36415; 80048; 80076; 80307; 81001; 81025; 83735; 85025; 87086; 87635; 93005; 96361; 96365; 96366; 99222; 99285; J3475; S9485

== ENCOUNTER → 2023-05-07 08:17 | Outpatient (BNV) | payer OTHER, SELFPAY | PROVIDERS: Emergency Provider Emergency Medicine; Visit Provider Internal Medicine | DX: R00.1 Bradycardia, unspecified (principal); R94.31 Abnormal electrocardiogram [ECG] [EKG] | CPT/HCPCS: 93010 ==

== ENCOUNTER 2023-05-07 17:51 | Outpatient (BNV) | payer OTHER, SELFPAY | END 2023-05-08 08:07 | PROVIDERS: Admitting Provider Internal Medicine; Emergency Provider Emergency Medicine; Visit Provider Internal Medicine | DX: R00.1 Bradycardia, unspecified (principal) | CPT/HCPCS: 93010 ==

== ENCOUNTER → 2023-05-07 17:51 | Outpatient (BNV) | payer OTHER, SELFPAY | PROVIDERS: Admitting Provider Internal Medicine; Emergency Provider Emergency Medicine; Visit Provider Internal Medicine | DX: R94.31 Abnormal electrocardiogram [ECG] [EKG] (principal); R45.851 Suicidal ideations | CPT/HCPCS: 99222; 99239 ==

== ENCOUNTER → 2023-05-07 17:51 | Outpatient (BNV) | payer OTHER, SELFPAY | PROVIDERS: Admitting Provider Internal Medicine; Emergency Provider Emergency Medicine; Visit Provider Internal Medicine | DX: R94.31 Abnormal electrocardiogram [ECG] [EKG] (principal); F19.20 Other psychoactive substance dependence, uncomplicated; R45.851 Suicidal ideations | CPT/HCPCS: 99223 ==

== ENCOUNTER 2023-05-08 16:20 | Outpatient (BNV) | payer OTHER, SELFPAY | END 2023-05-10 09:35 | PROVIDERS: Admitting Provider Psychiatry & Neurology Psychiatry; Visit Provider Internal Medicine Cardiovascular Disease | DX: R00.1 Bradycardia, unspecified (principal) | CPT/HCPCS: 93010 ==

== ENCOUNTER 2023-05-08 16:20 | Outpatient (BNV) | payer OTHER, SELFPAY | END 2023-05-17 10:54 | PROVIDERS: Admitting Provider Psychiatry & Neurology Psychiatry; Visit Provider Internal Medicine Cardiovascular Disease | DX: R00.1 Bradycardia, unspecified (principal) | CPT/HCPCS: 93010 ==

== ENCOUNTER 2023-05-08 16:20 | Outpatient (BNV) | payer OTHER, SELFPAY | END 2023-05-13 14:13 | PROVIDERS: Admitting Provider Psychiatry & Neurology Psychiatry; Visit Provider Internal Medicine Cardiovascular Disease | DX: I45.81 Long QT syndrome (principal) | CPT/HCPCS: 93010 ==

== ENCOUNTER 2023-05-08 16:20 | Outpatient (BNV) | payer OTHER, SELFPAY | END 2023-05-09 07:00 | PROVIDERS: Admitting Provider Psychiatry & Neurology Psychiatry; Visit Provider Internal Medicine | DX: I45.81 Long QT syndrome (principal); R00.1 Bradycardia, unspecified | CPT/HCPCS: 93010; 93306 ==

== ENCOUNTER 2023-05-08 16:20 | Inpatient (IN) | payer OTHER, SELFPAY ==
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
[2023-05-08 17:08] VITALS: BP 113/62; PULSE 47; RESP 16; TEMP 36.2; O2SAT 96
[2023-05-08 17:26] LABS: Estimated Glomerular Filt Rate > 60
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
[2023-05-08 18:30] VITALS: BMI 23.0
[2023-05-08 19:52] VITALS: BP 113/59; PULSE 55; RESP 16; TEMP 36.7; O2SAT 96
[2023-05-08] MEDS: methADONE HCl 20 MG/2 ML ORAL.CONC 40 MG PO (20:21)
[2023-05-08] MEDS: clonazePAM 1 MG TABLET PO (20:23)
--- NOTE | 2023-05-09 07:00 | CA_ITS ---
Transthoracic Echocardiogram Patient (Last, First, Middle): Kelley Chow, Gender: Female Date of : 1970 Age: 53 Procedure Date: 05/09/2023 Procedure Type: Transthoracic Echocardiogram Location: M3 Psych Height: 160.02 cm Weight: 58.97 kg BSA: 1.61 m2 Heart Rate: bpm BP: 113 / 59 mmHg Gynaecological Oncologist: DMITRY/JAREN Referring MD: Munira Corbin MD Symptoms: Prolonged QT, murmur Study Quality: Good ECG Rhythm: Sinus Conclusions: - The left ventricular systolic function is normal. The calculated ejection fraction is 66% by biplane method. - No obvious valvular pathology seen on this study. Findings Left Ventricle Normal left ventricular cavity size. There is normal left ventricular wall thickness. The left ventricular systolic function is normal. The calculated ejection fraction is 66% by biplane method. There is no evidence of regional wall motion abnormalities. Diastolic function is normal for age. Right Ventricle Normal right ventricular cavity size and systolic function. Atria Both atria are normal in size. There is no evidence of interatrial shunt by color Doppler. Aortic Valve There is a normal trileaflet aortic valve. There is no aortic valve stenosis. There is trace (trivial) aortic valve regurgitation. Mitral Valve The mitral valve appears normal. There is trace mitral valve regurgitation. There is no mitral valve stenosis. Pulmonic Valve The pulmonic valve is likely normal. Tricuspid Valve Normal tricuspid valve structure. There is trace tricuspid valve regurgitation. There is no evidence of pulmonary hypertension. Great Vessels The asc aorta is normal in size. Venous The inferior vena cava is normal in size and collapses greater than 50% with inspiration. Pericardium/Pleural There is no evidence of pericardial effusion. Prior Study Comparison No significant change compared to prior study dated: 05/09/2023. Recommendations, Care & Conclusions No obvious valvular pathology seen on this study. Measurements 2D Linear Measurements IVSd: 0.78 0.6-0.9/0.6-1.0 cm LVIDd: 4.73 3.9-5.3/4.2-5.9 cm LVIDd Index: 2.94 2.4-3.2/2.2-3.1 cm/m2 LVIDs: 3.15 2.0-3.6 cm LVPWd: 0.96 0.7-1.1 cm Ao Root: 2.80 2.1-3.5 cm LA Diam: 4.40 2.7-3.8/3.0-4.0 cm LAIDs Index: 2.73 1.5-2.3 cm/m2 LV Mass: 171.62 67-162/88-224 g LV Mass Index: 106.59 43-95/49-115 g/m2 LVOT Diam: 1.90 3.0+(-)1.3 cm 2D Systolic Function EF 4C: 63.30 >55% EF 2C: 66.10 >55% EF BiP: 66.30 >55% Mitral Valve MV Pk E: 0.92 MV PK A: 0.49 MV Decel Time: 287.00 E/A: 1.90 E'Lateral: 7.07 E'Medial: 6.85 E/E' Med: 13.50 E/E' Lat: 13.10 PHT: 84.00 MVA PHT: 2.62 Decel Gregg: 3.22 Aortic Valve AoV Pk Rodo: 1.41 AoV Mn Rodo: 0.96 AoV VTI: 0.35 AoV Pk Grad: 8.00 Aov Mn Grad: 4.00 RICCI Cont.VTI: 2.39 LVOT LVOT Pk Rodo: 1.24 LVOT Mn Rodo: 0.79 LVOT VTI: 0.29 LVOT Pk Grad: 6.00 LVOT Mn Grad: 3.00 LVOT Diam: 1.90 LVOT Area: 2.84 Diastolic Function MV Pk E: 0.92 MV Pk A: 0.49 E/A: 1.90 E'Medial: 6.85 E/E' Med: 13.50 E' Laterial: 7.07 E/E' Lat: 13.10 Right Ventricle TAPSE (mm): 18.00 TVS' Rodo: 13.00 Tricuspid Valve TR Pk Rodo: 1.68 TR Pk Grad: 11.00 RA Press: 3.00 RVSP: 14.00 Great Vessels Aorta Ao Root-2D: 2.80 2.0-3.7 cm Ao Asc: 3.10 2.1-3.4 cm Pulmonary Valve PV Pk Rodo: 0.63 Peak PV Grad: 2.00 Updated in Other Vendor System with Status of Final Tyrel Oneal MD electronically signed on 05/09/2023 12:12:03 PM with status of Final
[2023-05-09 07:30] VITALS: BP 106/52; PULSE 44; RESP 14; TEMP 35.9; O2SAT 96
--- NOTE | 2023-05-09 08:00 | ECG_ITS ---
Test Reason : PROLONGED QTS Blood Pressure : / mmHG Vent. Rate : 042 BPM Atrial Rate : 042 BPM P-R Int : 136 ms QRS Dur : 078 ms QT Int : 534 ms P-R-T Axes : -15 028 026 degrees QTc Int : 445 ms Marked sinus bradycardia Abnormal ECG When compared with ECG of 08-MAY-2023 08:07, No significant change was found Referred By: Munira Corbin Electronically Signed By:JEN TAYLOR
[2023-05-09 08:15] LABS: Alanine Aminotransferase 8 U/L (0-31); Albumin Level 3.7 g/dL (3.5-5.0); Alkaline Phosphatase 76 U/L (39-117); Anion Gap 14 (12-20); Aspartate Amino Transferase 16 U/L (5-31); Bilirubin Total 0.2 mg/dL (0.0-1.0); Blood Urea Nitrogen 18 mg/dL (9-16); Calcium 9.6 mg/dL (8.4-10.2); Carbon Dioxide 21 mmol/L (22-29); Chloride 109 mmol/L (96-108); Cholesterol 217 mg/dL (<200); Creatinine Clr Calc Pharmacy 80.3; Estimated Glomerular Filt Rate > 60; Glucose Fasting 83 mg/dL (60-99); HDL Cholesterol 60 mg/dL (>40); LDL Cholesterol Calculated 128 mg/dL (<100); Potassium 4.8 mmol/L (3.3-5.1); Sodium 139 mmol/L (135-145); Total Protein 6.9 g/dL (6.5-8.0); Triglycerides 149 mg/dL (<150)
[2023-05-09] MEDS: methADONE HCl 20 MG/2 ML ORAL.CONC 40 MG PO (08:43)
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
--- NOTE | 2023-05-09 12:02 | MHC.RECOVRN ---
Received Addiction Medicine Consult for pt on methadone with prolonged qtc. Pt currently receiving 40 mg BID. Qtc this morning was 445. Discussed with Anali Valdez APRN. Plan to continue methadone and have patient follow up with OTP when discharged to discuss any necessary changes. Pt to have EKG in a day or two to continue following qtc. Discussed with provider as well who informs t/w pt is reducing to 75 mg daily, split dose.
[2023-05-09] MEDS: Cariprazine HCl 1.5 MG CAPSULE PO (12:37)
[2023-05-09] MEDS: clonazePAM 0.5 MG TABLET PO (12:39)
[2023-05-09] MEDS: Baclofen 10 MG TABLET PO (16:09)
[2023-05-09] MEDS: methADONE HCl 20 MG/2 ML ORAL.CONC 35 MG PO (16:09)
[2023-05-09 20:05] VITALS: BP 100/61; PULSE 48; RESP 16; TEMP 36.6; O2SAT 96
[2023-05-09] MEDS: clonazePAM 1 MG TABLET PO (20:17)
[2023-05-10] MEDS: clonazePAM 0.5 MG TABLET PO ×2 (02:40→18:20)
[2023-05-10 06:00] VITALS: BP 104/59; PULSE 44; RESP 18; TEMP 36.7; O2SAT 98
[2023-05-10] MEDS: Cariprazine HCl 1.5 MG CAPSULE PO (08:31)
[2023-05-10] MEDS: methADONE HCl 20 MG/2 ML ORAL.CONC 40 MG PO (08:31)
--- NOTE | 2023-05-10 09:35 | ECG_ITS ---
Test Reason : QT interval Blood Pressure : / mmHG Vent. Rate : 042 BPM Atrial Rate : 042 BPM P-R Int : 168 ms QRS Dur : 086 ms QT Int : 562 ms P-R-T Axes : -23 021 032 degrees QTc Int : 469 ms Marked sinus bradycardia Abnormal ECG When compared with ECG of 09-MAY-2023 08:23, No significant change was found Referred By: Tyrel Oneal Electronically Signed By:Andres Dial
--- NOTE | 2023-05-10 10:34 | PM.PNCARD ---
Subjective Subjective Date of Service: 05/10/23 Interval history: Seen and examined patient psychiatric floor. She is not having any cardiac symptoms. Review of Systems Review of Systems Yes all other systems are reviewed and are negative Constitutional: Reports as per HPI and Reports no additional constitutional complaints Eyes: Reports as per HPI and Denies no additional eye complaints Denies system reviewed and no additional complaints, except as documented and Reports as per HPI Cardiovascular: Reports as per HPI, Reports no additional cardiovascular complaints, Denies acrocyanosis, Denies cool extremities, Denies chest pain, Denies leg edema, Denies lightheadedness, Denies palpitations and Denies dyspnea Respiratory: Reports as per HPI, Denies no additional respiratory complaints and Denies dyspnea Gastrointestinal: Reports as per HPI and Denies no additional gastrointestinal complaints Genitourinary: Reports as per HPI Musculoskeletal: Reports no additional musculoskeletal complaints and Reports as per HPI Skin/Breast: Reports system reviewed and no additional complaints, except as docu Reports system reviewed and no additional complaints, except as documented and Reports as per HPI Psychiatric: Reports no additional psychiatric complaints and Reports as per HPI Endocrine: Reports no additional endocrine complaints, Reports as per HPI and Denies palpitations Hematologic/Lymphatic: Reports no additional hematologic/lymphatic complaints and Reports as per HPI Allergic/Immunologic: Reports no additional allergic/immunologic complaints and Reports as per HPI Physical Exam Vital Signs: Last Vital Signs Temp 98.1 F 05/10/23 06:00 Pulse 44 L 05/10/23 06:00 Resp 18 05/10/23 06:00 BP 104/59 L 05/10/23 06:00 Pulse Ox 98 05/10/23 06:00 O2 Del Method Room Air 05/10/23 06:00 BMI result Body Mass Index 23.0 Const General: comfortable and no acute distress Orientation/consciousness: patient oriented x3 HEENT Other: Unremarkable Head: Yes normal to inspection Neck Neck: Yes normal visual inspection Chest Chest palpation & inspection: normal inspection of the chest Resp Auscultation: clear to auscultation bilaterally Cardio Palpation: normal PMI Heart sounds: S1 normal heart sound present, S2 normal heart sound present, no gallops, Murmur heart sound present systolic II/ and no rubs GI Palpation (GI): Soft to palpation Back/Spine/Pelvis Other: unremarkable Skin General skin exam: no rashes or lesions noted Neuro General: patient oriented x3 Extrem General: Yes normal to inspection Psych Mental Status: mental status grossly normal Objective Labs and Meds 05/09/23 07:32 Progress Note: A&P Assessment and plan (1) Prolonged QT interval: Status: Acute (2) Sinus bradycardia: Status: Acute (3) Methadone dependence: Status: Acute Plan EKG today shows sinus bradycardia at 42/Min. Corrected QT is 469 milliseconds. Echocardiogram with LVEF of 66%. Otherwise unremarkable. Overall, she is not having any symptoms from bradycardia. However, use of methadone with significant bradycardia is still a concern. As much able, continue to decrease the dosage or consider alternatives. QT was prolonged at arrival which may include effects from the other drugs she was using including cocaine, fentanyl extra. But QT is improved since that time. Discussed in detail with patient regarding methadone effects of the heart including bradycardia, prolonged QT including fatal cardiac arrhythmias. 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 Time Spent With Patient Time: Total time managing care of this patient today ____ minutes. Procedures Date of Service Date of Service: 05/10/23
[2023-05-10] MEDS: Baclofen 10 MG TABLET PO ×2 (10:40→23:01)
--- NOTE | 2023-05-10 12:27 | P.PNPSI_ITS ---
Subjective Subjective Date of Service: 05/10/23 Reason For Visit: SI Subjective Notes: Conditional Voluntary Medical Problems Affecting Mental Status: Yes (prolonged qtc affecting ability to take some meds) Interim History: 53 yo looking for prn for racing thoughts today- suggested she use strategies- rather than med fix given prolonged qtc limiting- med trials Pt says has a few things she does and she has tried them- We discussed trial of buspar she can't remember effect had it it in past. Also discussed ? dosing methadone with pt, with [facility]- as her own clinic suggested bid dosing sticking with that today- can reeavl tomorrow- Ongoing si but no current plan on unit Medication Compliance: Yes Side effects from medications: Yes (prolonged qtc from methadone, and worse prior with relapse) Attending Groups: Intermittent Review of Systems Acute medical concerns: No Medical Review of Systems: unchanged Mental Status Exam Mental Status Exam Patient Appearance: Fatigued and Unkempt Patient Orientation: Person, Place and Situation Level of Consciousness: Awake and Alert Patient Behavior: Appropriate and Cooperative Mood Description: Depressed Affect Description: Constricted Patient Cognition Impaired: No Ability to Follow Directions: Good Speech Pattern: Clear Thought Process: Intact and Goal Oriented Thought Content: positive for Suicidal Ideation Depressive Symptoms: Changes in Appetite (still low ,even though usually goes up with hospitalizations), Feelings of Worthlessness, Hopelessness, Isolating- Friends/Family, Unhappiness and Loss of Energy Judgement: Fair Diagnostics Vital Signs (24Hr): Vital Signs - 24 hr 05/09/23 20:05 05/10/23 06:00 Temperature 97.9 F 98.1 F Pulse Rate 48 L 44 L Respiratory Rate 16 18 Blood Pressure 100/61 104/59 L Pulse Oximetry 96 98 Oxygen Delivery Method Room Air Room Air BMI result Body Mass Index 23.0 Labs 05/09/23 07:32 Labs: Laboratory Results - last 48 hr 05/08/23 05/09/23 17:08 07:32 Sodium 139 Potassium 4.8 Chloride 109 H Carbon Dioxide 21 L Anion Gap 14 BUN 18 H Creatinine 0.71 0.67 Estim Creat Clear Calc TNP 80.3 Estimated GFR > 60 > 60 Fasting Glucose 83 Calcium 9.6 Total Bilirubin 0.2 AST 16 ALT 8 Alkaline Phosphatase 76 Total Protein 6.9 Albumin 3.7 Triglycerides 149 Cholesterol 217 H LDL Cholesterol, Calc 128 H HDL Cholesterol 60 Medications Medications Current Medications Acetaminophen (Acetaminophen 325 Mg Tablet) 650 mg PO Q6H PRN PRN Reason: Headache/Pain Mild Scale (1-3) Al Hydroxide/Mg Hydroxide (Magnesium Hydrox/Alum Hydrox 30 Ml Oral.Susp) 30 ml PO Q6H PRN PRN Reason: Heartburn/Nausea Baclofen (Baclofen 10 Mg Tablet) 10 mg PO BID PRN PRN Reason: muscle spasms Last Admin: 05/10/23 10:40 Dose: 10 mg Buspirone HCl (Buspirone Hcl 10 Mg Tablet) 10 mg PO TID PRN PRN Reason: anxiety Cariprazine (Cariprazine Hcl 1.5 Mg Capsule) 1.5 mg PO DAILY [facility] Last Admin: 05/10/23 08:31 Dose: 1.5 mg Clonazepam (Clonazepam 1 Mg Tablet) 1 mg PO BEDTIME PRN PRN Reason: Insomnia Last Admin: 05/09/23 20:17 Dose: 1 mg Clonazepam (Clonazepam 0.5 Mg Tablet) 0.5 mg PO BID PRN PRN Reason: anxiety/restlessness Last Admin: 05/10/23 02:40 Dose: 0.5 mg Methadone HCl (Methadone Hcl 20 Mg/2 Ml Oral.Conc) 40 mg PO DAILY [facility] Last Admin: 05/10/23 08:31 Dose: 40 mg Methadone HCl (Methadone Hcl 20 Mg/2 Ml Oral.Conc) 35 mg PO DAILY@1600 [facility] Last Admin: 05/09/23 16:09 Dose: 35 mg Nicotine (Nicotine 21 Mg Patch.Td24) 21 mg TRANSDERMA DAILY [facility] Last Admin: 05/10/23 08:34 Dose: Not Given Nicotine Polacrilex (Nicotine Polacrilex 2 Mg Gum) 4 mg BUCCAL Q2H PRN PRN Reason: Nicotine Cravings Allergies Allergies Allergy/AdvReac Type Severity Reaction Status Date / Time trazodone [TRAZODONE] Allergy Severe SHORTNESS Verified 05/06/23 12:55 OF BREATH, GASPING FOR AIR , SOB aspirin [ASPIRIN] Allergy Unknown STOMACH Verified 05/06/23 12:55 UPSET, Nausea, nausa ciprofloxacin [Cipro] Allergy Unknown Rash Verified 05/06/23 12:55 promethazine [Phenergan] Allergy Unknown Hives Verified 05/06/23 12:55 Sulfa (Sulfonamide Allergy Unknown Unknown Verified 05/06/23 12:55 Antibiotics) Assessment & Plan Assessment & Plan (1) Prolonged QT interval: Status: Acute Code(s): R94.31 - Abnormal electrocardiogram [ECG] [EKG] (2) Sinus bradycardia: Status: Acute Code(s): R00.1 - Bradycardia, unspecified Assessment and Plan: being followed with daily ekg around qtc (3) Methadone dependence: Status: Acute Code(s): F11.20 - Opioid dependence, uncomplicated Assessment and Plan: on methadone for pain managment (4) PTSD (post-traumatic stress disorder): Status: Acute Code(s): F43.10 - Post-traumatic stress disorder, unspecified Assessment and Plan: 05/10/23 trial of bupar discussed , pt also on baclofen and clonazepam (5) Major depression, recurrent: Status: Acute Code(s): F33.9 - Major depressive disorder, recurrent, unspecified Plan EKG today shows sinus bradycardia at 42/Min. Corrected QT is 469 milliseconds. Echocardiogram with LVEF of 66%. Otherwise unremarkable. Overall, she is not having any symptoms from bradycardia. However, use of methadone with significant bradycardia is still a concern. As much able, continue to decrease the dosage or consider alternatives. QT was prolonged at arrival which may include effects from the other drugs she was using including cocaine, fentanyl extra. But QT is improved since that time. Discussed in detail with patient regarding methadone effects of the heart including bradycardia, prolonged QT including fatal cardiac arrhythmias. patient assistant and was at the bedside during discussion. Patient educated on: medication risk/benefits and therapeutic strategies Informed Consent: understands Reason for continued inpatient stay Substantial Risk for: harm to self and med/psych decompensation Time Spent With Patient Time: Total time managing care of this patient today ____ minutes.
[2023-05-10] MEDS: methADONE HCl 20 MG/2 ML ORAL.CONC 35 MG PO (16:07)
[2023-05-10] MEDS: busPIRone HCl 10 MG TABLET PO (16:10)
[2023-05-10 19:45] VITALS: BP 108/56; PULSE 46; RESP 16; TEMP 36.6; O2SAT 96
[2023-05-10] MEDS: clonazePAM 1 MG TABLET PO (23:01)
[2023-05-11] MEDS: Baclofen 10 MG TABLET PO ×2 (06:59→21:37)
[2023-05-11 07:00] VITALS: BP 94/81; PULSE 48; RESP 16; TEMP 36.1; O2SAT 96
[2023-05-11] MEDS: methADONE HCl 20 MG/2 ML ORAL.CONC 40 MG PO (08:45)
[2023-05-11] MEDS: Cariprazine HCl 1.5 MG CAPSULE PO (08:46)
[2023-05-11] MEDS: busPIRone HCl 10 MG TABLET PO ×2 (08:50→16:10)
[2023-05-11] MEDS: clonazePAM 0.5 MG TABLET PO (13:29)
--- NOTE | 2023-05-11 14:12 | P.PNPSI_ITS ---
Subjective Subjective Date of Service: 05/11/23 Reason For Visit: SI Interim History: calm, cooperative. review antidepressant Hx and various reasons for not continuing a great many medications. ultimately agree to have a re-trial of wellbutrin, which she reports having tried many moons ago, back when it was first approved for smoking cessation. plan to restart tomorrow morning. will plan to continue split-dosing of methadone. noted most recent QTc, from yesterday, is essentially WNL (469, whereas high normal is 460). interested in CSS. Mental Status Exam Mental Status Exam Narrative: Pt is alert and oriented; behavior is cooperative, engaged; patient is not in distress; combed hair and good hygiene; affect flexible; adequate eye contact; Speech is regular rate, volume and prosody; no psychomotor retardation present; thought process is goal directed; Thought content is treatment, aftercare; otherwise pertinent to relevant topics and without any delusional content, paranoid ideation or grandiosity; no SI/HI/AVH expressed. There is no evidence of perceptual disturbance. Patients insight and judgment are fair. Diagnostics Vital Signs (24Hr): Vital Signs - 24 hr 05/10/23 19:45 05/11/23 07:00 Temperature 97.8 F 97.0 F Pulse Rate 46 L 48 L Respiratory Rate 16 16 Blood Pressure 108/56 L 94/81 Pulse Oximetry 96 96 Oxygen Delivery Method Room Air Room Air BMI result Body Mass Index 23.0 Labs 05/09/23 07:32 Medications Medications Current Medications Acetaminophen (Acetaminophen 325 Mg Tablet) 650 mg PO Q6H PRN PRN Reason: Headache/Pain Mild Scale (1-3) Al Hydroxide/Mg Hydroxide (Magnesium Hydrox/Alum Hydrox 30 Ml Oral.Susp) 30 ml PO Q6H PRN PRN Reason: Heartburn/Nausea Baclofen (Baclofen 10 Mg Tablet) 10 mg PO BID PRN PRN Reason: muscle spasms Last Admin: 05/11/23 06:59 Dose: 10 mg Bupropion HCl (Bupropion Hcl Xl 150 Mg Tab.Er.24h) 150 mg PO DAILY [facility] Buspirone HCl (Buspirone Hcl 10 Mg Tablet) 10 mg PO TID PRN PRN Reason: anxiety Last Admin: 05/11/23 08:50 Dose: 10 mg Cariprazine (Cariprazine Hcl 1.5 Mg Capsule) 1.5 mg PO DAILY [facility] Last Admin: 05/11/23 08:46 Dose: 1.5 mg Clonazepam (Clonazepam 1 Mg Tablet) 1 mg PO BEDTIME PRN PRN Reason: Insomnia Last Admin: 05/10/23 23:01 Dose: 1 mg Clonazepam (Clonazepam 0.5 Mg Tablet) 0.5 mg PO BID PRN PRN Reason: anxiety/restlessness Last Admin: 05/11/23 13:29 Dose: 0.5 mg Methadone HCl (Methadone Hcl 20 Mg/2 Ml Oral.Conc) 40 mg PO DAILY [facility] Last Admin: 05/11/23 08:45 Dose: 40 mg Methadone HCl (Methadone Hcl 20 Mg/2 Ml Oral.Conc) 35 mg PO DAILY@1600 [facility] Last Admin: 05/10/23 16:07 Dose: 35 mg Nicotine (Nicotine 21 Mg Patch.Td24) 21 mg TRANSDERMA DAILY [facility] Last Admin: 05/11/23 08:48 Dose: Not Given Nicotine Polacrilex (Nicotine Polacrilex 2 Mg Gum) 4 mg BUCCAL Q2H PRN PRN Reason: Nicotine Cravings Allergies Allergies Allergy/AdvReac Type Severity Reaction Status Date / Time trazodone [TRAZODONE] Allergy Severe SHORTNESS Verified 05/06/23 12:55 OF BREATH, GASPING FOR AIR , SOB aspirin [ASPIRIN] Allergy Unknown STOMACH Verified 05/06/23 12:55 UPSET, Nausea, nausa ciprofloxacin [Cipro] Allergy Unknown Rash Verified 05/06/23 12:55 promethazine [Phenergan] Allergy Unknown Hives Verified 05/06/23 12:55 Sulfa (Sulfonamide Allergy Unknown Unknown Verified 05/06/23 12:55 Antibiotics) Assessment & Plan Assessment & Plan (1) Prolonged QT interval: Status: Acute Code(s): R94.31 - Abnormal electrocardiogram [ECG] [EKG] (2) Sinus bradycardia: Status: Acute Code(s): R00.1 - Bradycardia, unspecified Assessment and Plan: EKG 05/10/23 shows sinus bradycardia at 42/Min. Corrected QT is 469 milliseconds. Echocardiogram with LVEF of 66%. Otherwise unremarkable. Overall, she is not having any symptoms from bradycardia. However, use of methadone with significant bradycardia is still a concern. As much able, continue to decrease the dosage or consider alternatives. QT was prolonged at arrival which may include effects from the other drugs she was using including cocaine, fentanyl extra. But QT is improved since that time. Discussed in detail with patient regarding methadone effects of the heart including bradycardia, prolonged QT including fatal cardiac arrhythmias. 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 (3) Methadone dependence: Status: Acute Code(s): F11.20 - Opioid dependence, uncomplicated Assessment and Plan: on methadone for pain managment (4) PTSD (post-traumatic stress disorder): Status: Acute Code(s): F43.10 - Post-traumatic stress disorder, unspecified Assessment and Plan: 05/10/23 trial of bupar discussed , pt also on baclofen and clonazepam (5) Major depression, recurrent: Status: Acute Code(s): F33.9 - Major depressive disorder, recurrent, unspecified Plan 05/09: trial of vraylar says she was on olanzapine 2.5mg but want a med that doesn't affect qtc 05/10: trial of buspar PRN anxiety initiated 05/11: agreeable to re-trial wellbutrin, will start at 150 mg tomorrow. interested in CSS. Reason for continued inpatient stay Substantial Risk for: harm to self, inability to function and rapid decompensation Time Spent With Patient Time: Total time managing care of this patient today _35___ minutes.
[2023-05-11] MEDS: methADONE HCl 20 MG/2 ML ORAL.CONC 35 MG PO (16:10)
[2023-05-11] MEDS: Ondansetron ODT 4 MG TAB.RAPDIS TRANSLINGU (21:00)
[2023-05-11 21:15] VITALS: BP 98/52; PULSE 47; RESP 16; TEMP 36.1; O2SAT 96
[2023-05-11] MEDS: clonazePAM 1 MG TABLET PO (21:37)
[2023-05-12 06:00] VITALS: BP 88/53; PULSE 41; RESP 16; TEMP 36.4; O2SAT 95
[2023-05-12] MEDS: methADONE HCl 20 MG/2 ML ORAL.CONC 40 MG PO (08:04)
[2023-05-12] MEDS: buPROPion HCl XL 150 MG TAB.ER.24H PO (08:05)
[2023-05-12] MEDS: clonazePAM 0.5 MG TABLET PO ×2 (08:05→14:49)
[2023-05-12] MEDS: Cariprazine HCl 1.5 MG CAPSULE PO (08:05)
[2023-05-12] MEDS: Baclofen 10 MG TABLET PO (12:24)
[2023-05-12] MEDS: busPIRone HCl 10 MG TABLET PO ×2 (12:24→21:02)
[2023-05-12] MEDS: methADONE HCl 20 MG/2 ML ORAL.CONC 35 MG PO (16:46)
--- NOTE | 2023-05-12 17:48 | HO.PSYCHPN ---
Subjective Subjective Date of Service: 05/12/23 Reason For Visit: SI Interim History: pt reports daily SI/thoughts of . feeling very much not ready to discharge to [facility], despite bed availability. reports having SI/thoughts of several times weekly prior to a couple months ago, but about 2 months ago things got worse such that such experiences became daily. reports recent psychosocial stressors including losing her apartment and having to give away her cat, as well as her mother's illness (stage IV lung CA). per staff, dep/anx 5. vague SI. eating, meds. c/o nausea post-medications. attending groups. Mental Status Exam Mental Status Exam Narrative: Pt is alert and oriented; behavior is cooperative, engaged; patient is not in distress; combed hair and good hygiene; affect constricted, tearful; adequate eye contact; Speech is regular rate, volume and prosody; no psychomotor retardation present; thought process is goal directed; Thought content is treatment, aftercare; otherwise pertinent to relevant topics and without any delusional content, paranoid ideation or grandiosity; +SI. no HI/AVH expressed. There is no evidence of perceptual disturbance. Patients insight and judgment are fair. Diagnostics Vital Signs (24Hr): Vital Signs - 24 hr 05/11/23 21:15 05/12/23 06:00 Temperature 97.0 F 97.5 F Pulse Rate 47 L 41 L Respiratory Rate 16 16 Blood Pressure 98/52 L 88/53 L Pulse Oximetry 96 95 Oxygen Delivery Method Room Air Room Air BMI result Body Mass Index 23.0 Labs 05/09/23 07:32 Medications Medications Current Medications Acetaminophen (Acetaminophen 325 Mg Tablet) 650 mg PO Q6H PRN PRN Reason: Headache/Pain Mild Scale (1-3) Al Hydroxide/Mg Hydroxide (Magnesium Hydrox/Alum Hydrox 30 Ml Oral.Susp) 30 ml PO Q6H PRN PRN Reason: Heartburn/Nausea Baclofen (Baclofen 10 Mg Tablet) 10 mg PO BID PRN PRN Reason: muscle spasms Last Admin: 05/12/23 12:24 Dose: 10 mg Bupropion HCl (Bupropion Hcl Xl 150 Mg Tab.Er.24h) 150 mg PO DAILY [facility] Last Admin: 05/12/23 08:05 Dose: 150 mg Buspirone HCl (Buspirone Hcl 10 Mg Tablet) 10 mg PO TID PRN PRN Reason: anxiety Last Admin: 05/12/23 12:24 Dose: 10 mg Cariprazine (Cariprazine Hcl 1.5 Mg Capsule) 1.5 mg PO DAILY [facility] Last Admin: 05/12/23 08:05 Dose: 1.5 mg Clonazepam (Clonazepam 1 Mg Tablet) 1 mg PO BEDTIME PRN PRN Reason: Insomnia Last Admin: 05/11/23 21:37 Dose: 1 mg Clonazepam (Clonazepam 0.5 Mg Tablet) 0.5 mg PO BID PRN PRN Reason: anxiety/restlessness Last Admin: 05/12/23 14:49 Dose: 0.5 mg Methadone HCl (Methadone Hcl 20 Mg/2 Ml Oral.Conc) 40 mg PO DAILY [facility] Last Admin: 05/12/23 08:04 Dose: 40 mg Methadone HCl (Methadone Hcl 20 Mg/2 Ml Oral.Conc) 35 mg PO DAILY@1600 [facility] Last Admin: 05/12/23 16:46 Dose: 35 mg Nicotine (Nicotine 21 Mg Patch.Td24) 21 mg TRANSDERMA DAILY [facility] Last Admin: 05/12/23 08:23 Dose: Not Given Nicotine Polacrilex (Nicotine Polacrilex 2 Mg Gum) 4 mg BUCCAL Q2H PRN PRN Reason: Nicotine Cravings Ondansetron HCl (Ondansetron Odt 4 Mg Tab.Rapdis) 4 mg TRANSLINGU Q8H PRN PRN Reason: Nausea Last Admin: 05/11/23 21:00 Dose: 4 mg Allergies Allergies Allergy/AdvReac Type Severity Reaction Status Date / Time trazodone [TRAZODONE] Allergy Severe SHORTNESS Verified 05/06/23 12:55 OF BREATH, GASPING FOR AIR , SOB aspirin [ASPIRIN] Allergy Unknown STOMACH Verified 05/06/23 12:55 UPSET, Nausea, nausa ciprofloxacin [Cipro] Allergy Unknown Rash Verified 05/06/23 12:55 promethazine [Phenergan] Allergy Unknown Hives Verified 05/06/23 12:55 Sulfa (Sulfonamide Allergy Unknown Unknown Verified 05/06/23 12:55 Antibiotics) Assessment & Plan Assessment & Plan (1) Prolonged QT interval: Status: Acute Code(s): R94.31 - Abnormal electrocardiogram [ECG] [EKG] (2) Sinus bradycardia: Status: Acute Code(s): R00.1 - Bradycardia, unspecified Assessment and Plan: EKG 05/10/23 shows sinus bradycardia at 42/Min. Corrected QT is 469 milliseconds. Echocardiogram with LVEF of 66%. Otherwise unremarkable. Overall, she is not having any symptoms from bradycardia. However, use of methadone with significant bradycardia is still a concern. As much able, continue to decrease the dosage or consider alternatives. QT was prolonged at arrival which may include effects from the other drugs she was using including cocaine, fentanyl extra. But QT is improved since that time. Discussed in detail with patient regarding methadone effects of the heart including bradycardia, prolonged QT including fatal cardiac arrhythmias. 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 (3) Methadone dependence: Status: Acute Code(s): F11.20 - Opioid dependence, uncomplicated Assessment and Plan: on methadone for pain managment (4) PTSD (post-traumatic stress disorder): Status: Acute Code(s): F43.10 - Post-traumatic stress disorder, unspecified Assessment and Plan: 05/10/23 trial of bupar discussed , pt also on baclofen and clonazepam (5) Major depression, recurrent: Status: Acute Code(s): F33.9 - Major depressive disorder, recurrent, unspecified Plan 05/09: trial of vraylar says she was on olanzapine 2.5mg but want a med that doesn't affect qtc 05/10: trial of buspar PRN anxiety initiated 05/11: agreeable to re-trial wellbutrin, will start at 150 mg tomorrow. interested in CSS. 05/12: tolerating wellbutrin, planning to increase to 300 mg in 3 days. not feeling ready for CSS by wednesday, endorsing SI. Reason for continued inpatient stay Substantial Risk for: harm to self, inability to function and rapid decompensation Time Spent With Patient Time: Total time managing care of this patient today __35__ minutes.
[2023-05-12 18:00] VITALS: BP 114/57; PULSE 44; TEMP 36.7; O2SAT 99
[2023-05-12] MEDS: clonazePAM 1 MG TABLET PO (21:02)
[2023-05-13] MEDS: busPIRone HCl 10 MG TABLET PO (04:30)
[2023-05-13 08:04] VITALS: BP 106/52; PULSE 62; RESP 16; TEMP 36.3; O2SAT 95
[2023-05-13] MEDS: Cariprazine HCl 1.5 MG CAPSULE PO (08:19)
[2023-05-13 10:02] VITALS: BMI 23.2
--- NOTE | 2023-05-13 15:22 | HO.PSYCHPN ---
Subjective Subjective Date of Service: 05/13/23 Reason For Visit: SI Interim History: calm, cooperative. up all NOC last NOC, wants to DC wellbutrin, which is done. discuss other options, pt agrees to re-trial with zoloft, which she had some success with in the past. per staff, attending groups. + meds. no sleep last NOC. has appeared to be more restless in groups imani past 2 days per OT staff. Mental Status Exam Mental Status Exam Narrative: Pt is alert and oriented; behavior is cooperative, engaged; patient is not in distress; combed hair and good hygiene; affect constricted, non-labile; adequate eye contact; Speech is regular rate, volume and prosody; no psychomotor retardation present; thought process is goal directed; Thought content is treatment, aftercare; otherwise pertinent to relevant topics and without any delusional content, paranoid ideation or grandiosity; + intermittent SI. no HI/AVH expressed. There is no evidence of perceptual disturbance. Patients insight and judgment are fair. Diagnostics Vital Signs (24Hr): Vital Signs - 24 hr 05/12/23 18:00 05/13/23 08:04 Temperature 98.1 F 97.4 F Pulse Rate 44 L 62 Respiratory Rate 16 Blood Pressure 114/57 L 106/52 L Pulse Oximetry 99 95 Oxygen Delivery Method Room Air BMI result Body Mass Index 23.2 Labs 05/09/23 07:32 Medications Medications Current Medications Acetaminophen (Acetaminophen 325 Mg Tablet) 650 mg PO Q6H PRN PRN Reason: Headache/Pain Mild Scale (1-3) Al Hydroxide/Mg Hydroxide (Magnesium Hydrox/Alum Hydrox 30 Ml Oral.Susp) 30 ml PO Q6H PRN PRN Reason: Heartburn/Nausea Baclofen (Baclofen 10 Mg Tablet) 10 mg PO BID PRN PRN Reason: muscle spasms Last Admin: 05/13/23 08:25 Dose: 10 mg Buspirone HCl (Buspirone Hcl 10 Mg Tablet) 10 mg PO TID PRN PRN Reason: anxiety Last Admin: 05/13/23 04:30 Dose: 10 mg Cariprazine (Cariprazine Hcl 1.5 Mg Capsule) 1.5 mg PO DAILY [facility] Last Admin: 05/13/23 08:19 Dose: 1.5 mg Clonazepam (Clonazepam 1 Mg Tablet) 1 mg PO BEDTIME PRN PRN Reason: Insomnia Last Admin: 05/12/23 21:02 Dose: 1 mg Clonazepam (Clonazepam 0.5 Mg Tablet) 0.5 mg PO BID PRN PRN Reason: anxiety/restlessness Last Admin: 05/13/23 12:54 Dose: 0.5 mg Methadone HCl (Methadone Hcl 20 Mg/2 Ml Oral.Conc) 40 mg PO DAILY [facility] Last Admin: 05/13/23 08:19 Dose: 40 mg Methadone HCl (Methadone Hcl 20 Mg/2 Ml Oral.Conc) 35 mg PO DAILY@1600 [facility] Last Admin: 05/12/23 16:46 Dose: 35 mg Nicotine (Nicotine 21 Mg Patch.Td24) 21 mg TRANSDERMA DAILY [facility] Last Admin: 05/13/23 09:40 Dose: Not Given Nicotine Polacrilex (Nicotine Polacrilex 2 Mg Gum) 4 mg BUCCAL Q2H PRN PRN Reason: Nicotine Cravings Ondansetron HCl (Ondansetron Odt 4 Mg Tab.Rapdis) 4 mg TRANSLINGU Q8H PRN PRN Reason: Nausea Last Admin: 05/11/23 21:00 Dose: 4 mg Sertraline HCl (Sertraline Hcl 25 Mg Tablet) 25 mg PO DAILY [facility] Allergies Allergies Allergy/AdvReac Type Severity Reaction Status Date / Time trazodone [TRAZODONE] Allergy Severe SHORTNESS Verified 05/06/23 12:55 OF BREATH, GASPING FOR AIR , SOB aspirin [ASPIRIN] Allergy Unknown STOMACH Verified 05/06/23 12:55 UPSET, Nausea, nausa ciprofloxacin [Cipro] Allergy Unknown Rash Verified 05/06/23 12:55 promethazine [Phenergan] Allergy Unknown Hives Verified 05/06/23 12:55 Sulfa (Sulfonamide Allergy Unknown Unknown Verified 05/06/23 12:55 Antibiotics) Assessment & Plan Assessment & Plan (1) Prolonged QT interval: Status: Acute Code(s): R94.31 - Abnormal electrocardiogram [ECG] [EKG] (2) Sinus bradycardia: Status: Acute Code(s): R00.1 - Bradycardia, unspecified Assessment and Plan: EKG 05/10/23 shows sinus bradycardia at 42/Min. Corrected QT is 469 milliseconds. Echocardiogram with LVEF of 66%. Otherwise unremarkable. Overall, she is not having any symptoms from bradycardia. However, use of methadone with significant bradycardia is still a concern. As much able, continue to decrease the dosage or consider alternatives. QT was prolonged at arrival which may include effects from the other drugs she was using including cocaine, fentanyl extra. But QT is improved since that time. Discussed in detail with patient regarding methadone effects of the heart including bradycardia, prolonged QT including fatal cardiac arrhythmias. 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 (3) Methadone dependence: Status: Acute Code(s): F11.20 - Opioid dependence, uncomplicated Assessment and Plan: on methadone for pain managment (4) PTSD (post-traumatic stress disorder): Status: Acute Code(s): F43.10 - Post-traumatic stress disorder, unspecified Assessment and Plan: 05/10/23 trial of bupar discussed , pt also on baclofen and clonazepam (5) Major depression, recurrent: Status: Acute Code(s): F33.9 - Major depressive disorder, recurrent, unspecified Plan 05/09: trial of vraylar says she was on olanzapine 2.5mg but want a med that doesn't affect qtc 05/10: trial of buspar PRN anxiety initiated 05/11: agreeable to re-trial wellbutrin, will start at 150 mg tomorrow. interested in CSS. 05/12: tolerating wellbutrin, planning to increase to 300 mg in 3 days. not feeling ready for CSS by wednesday, endorsing SI. 05/13: no sleep last night, refused wellbutrin this morning, asked to DC it today. pt suggest re-trial with zoloft, which she reports has been helpful for her in the past. EKG today with QTc of 496 (460 top normal) Reason for continued inpatient stay Substantial Risk for: harm to self, inability to function and rapid decompensation Time Spent With Patient Time: Total time managing care of this patient today _35___ minutes.
[2023-05-13 19:55] VITALS: BP 108/58; PULSE 49; RESP 18; TEMP 37.1; O2SAT 97
[2023-05-14] MEDS: clonazePAM 1 MG TABLET PO ×2 (00:15→21:40)
[2023-05-14 06:00] VITALS: BP 140/55; PULSE 49; RESP 18; TEMP 36.3; O2SAT 98
[2023-05-14] MEDS: Cariprazine HCl 1.5 MG CAPSULE PO (08:19)
--- NOTE | 2023-05-14 15:37 | HO.PSYCHPN ---
Subjective Subjective Date of Service: 05/14/23 Reason For Visit: SI Interim History: appears more stable than yesterday. asking for baclofen to be available more frequently, MD increases frequency back to up to three times daily. per staff, not attending groups. slept about 5 hours. Mental Status Exam Mental Status Exam Narrative: Pt is alert and oriented; behavior is cooperative, engaged; patient is not in distress; combed hair and good hygiene; affect constricted, non-labile; adequate eye contact; Speech is regular rate, volume and prosody; no psychomotor retardation present; thought process is goal directed; Thought content is treatment, aftercare; otherwise pertinent to relevant topics and without any delusional content, paranoid ideation or grandiosity; + intermittent SI. no HI/AVH expressed. There is no evidence of perceptual disturbance. Patients insight and judgment are fair. Diagnostics Vital Signs (24Hr): Vital Signs - 24 hr 05/13/23 19:55 05/14/23 06:00 Temperature 98.8 F 97.4 F Pulse Rate 49 L 49 L Respiratory Rate 18 18 Blood Pressure 108/58 L 140/55 H Pulse Oximetry 97 98 Oxygen Delivery Method Room Air Room Air BMI result Body Mass Index 23.2 Labs 05/09/23 07:32 Medications Medications Current Medications Acetaminophen (Acetaminophen 325 Mg Tablet) 650 mg PO Q6H PRN PRN Reason: Headache/Pain Mild Scale (1-3) Al Hydroxide/Mg Hydroxide (Magnesium Hydrox/Alum Hydrox 30 Ml Oral.Susp) 30 ml PO Q6H PRN PRN Reason: Heartburn/Nausea Baclofen (Baclofen 10 Mg Tablet) 10 mg PO Q6H PRN PRN Reason: muscle spasms Last Admin: 05/14/23 14:15 Dose: 10 mg Buspirone HCl (Buspirone Hcl 10 Mg Tablet) 10 mg PO TID PRN PRN Reason: anxiety Last Admin: 05/13/23 04:30 Dose: 10 mg Cariprazine (Cariprazine Hcl 1.5 Mg Capsule) 1.5 mg PO DAILY [facility] Last Admin: 05/14/23 08:19 Dose: 1.5 mg Clonazepam (Clonazepam 1 Mg Tablet) 1 mg PO BEDTIME PRN PRN Reason: Insomnia Last Admin: 05/14/23 00:15 Dose: 1 mg Clonazepam (Clonazepam 0.5 Mg Tablet) 0.5 mg PO BID PRN PRN Reason: anxiety/restlessness Last Admin: 05/14/23 08:25 Dose: 0.5 mg Methadone HCl (Methadone Hcl 20 Mg/2 Ml Oral.Conc) 40 mg PO DAILY [facility] Last Admin: 05/14/23 08:20 Dose: 40 mg Methadone HCl (Methadone Hcl 20 Mg/2 Ml Oral.Conc) 35 mg PO DAILY@1600 [facility] Last Admin: 05/13/23 17:26 Dose: 35 mg Nicotine (Nicotine 21 Mg Patch.Td24) 21 mg TRANSDERMA DAILY [facility] Last Admin: 05/14/23 08:23 Dose: Not Given Nicotine Polacrilex (Nicotine Polacrilex 2 Mg Gum) 4 mg BUCCAL Q2H PRN PRN Reason: Nicotine Cravings Ondansetron HCl (Ondansetron Odt 4 Mg Tab.Rapdis) 4 mg TRANSLINGU Q8H PRN PRN Reason: Nausea Last Admin: 05/11/23 21:00 Dose: 4 mg Sertraline HCl (Sertraline Hcl 25 Mg Tablet) 25 mg PO DAILY [facility] Last Admin: 05/14/23 08:19 Dose: 25 mg Allergies Allergies Allergy/AdvReac Type Severity Reaction Status Date / Time trazodone [TRAZODONE] Allergy Severe SHORTNESS Verified 05/06/23 12:55 OF BREATH, GASPING FOR AIR , SOB aspirin [ASPIRIN] Allergy Unknown STOMACH Verified 05/06/23 12:55 UPSET, Nausea, nausa ciprofloxacin [Cipro] Allergy Unknown Rash Verified 05/06/23 12:55 promethazine [Phenergan] Allergy Unknown Hives Verified 05/06/23 12:55 Sulfa (Sulfonamide Allergy Unknown Unknown Verified 05/06/23 12:55 Antibiotics) Assessment & Plan Assessment & Plan (1) Prolonged QT interval: Status: Acute Code(s): R94.31 - Abnormal electrocardiogram [ECG] [EKG] (2) Sinus bradycardia: Status: Acute Code(s): R00.1 - Bradycardia, unspecified Assessment and Plan: EKG 05/10/23 shows sinus bradycardia at 42/Min. Corrected QT is 469 milliseconds. Echocardiogram with LVEF of 66%. Otherwise unremarkable. Overall, she is not having any symptoms from bradycardia. However, use of methadone with significant bradycardia is still a concern. As much able, continue to decrease the dosage or consider alternatives. QT was prolonged at arrival which may include effects from the other drugs she was using including cocaine, fentanyl extra. But QT is improved since that time. Discussed in detail with patient regarding methadone effects of the heart including bradycardia, prolonged QT including fatal cardiac arrhythmias. 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 (3) Methadone dependence: Status: Acute Code(s): F11.20 - Opioid dependence, uncomplicated Assessment and Plan: on methadone for pain managment (4) PTSD (post-traumatic stress disorder): Status: Acute Code(s): F43.10 - Post-traumatic stress disorder, unspecified Assessment and Plan: 05/10/23 trial of bupar discussed , pt also on baclofen and clonazepam (5) Major depression, recurrent: Status: Acute Code(s): F33.9 - Major depressive disorder, recurrent, unspecified Plan 05/09: trial of vraylar says she was on olanzapine 2.5mg but want a med that doesn't affect qtc 05/10: trial of buspar PRN anxiety initiated 05/11: agreeable to re-trial wellbutrin, will start at 150 mg tomorrow. interested in CSS. 05/12: tolerating wellbutrin, planning to increase to 300 mg in 3 days. not feeling ready for CSS by wednesday, endorsing SI. 05/13: no sleep last night, refused wellbutrin this morning, asked to DC it today. pt suggest re-trial with zoloft, which she reports has been helpful for her in the past. EKG today with QTc of 496 (460 top normal). 05/14: increase baclofen back to TID PRN, as she was RX'ed outpt. otherwise continue current mgmt. appears a bit more settled than yesterday. Reason for continued inpatient stay Substantial Risk for: inability to function and rapid decompensation Time Spent With Patient Time: Total time managing care of this patient today __25__ minutes.
[2023-05-15 06:00] VITALS: BP 104/54; PULSE 50; TEMP 36.1; O2SAT 98
--- NOTE | 2023-05-15 12:30 | HO.PSYCHPN ---
Subjective Subjective Date of Service: 05/15/23 Reason For Visit: SI Medical Problems Affecting Mental Status: No Interim History: met with patient. Discussed with Nursing. Chart reviewed. Overall has been isolative. Reports today with policy writer typist that she is not feeling too bed. Still endorses feeling depressed and tired. Sleep is broken. However reports her symptoms are getting slightly better including her sleep. Still having suicidal thoughts on a daily basis, but much less frequent and intense. Is feeling safe. Reports she is glad she did not discharged to the [facility] on Wednesday, as she was still feeling extremely depressed and suicidal. Medication Compliance: Yes Side effects from medications: No Attending Groups: Yes Review of Systems Acute medical concerns: No Review of Systems Review of Systems Unremarkable Mental Status Exam Mental Status Exam Narrative: Pt is alert and oriented; behavior is cooperative, engaged; patient is not in distress; combed hair and good hygiene; affect constricted, non-labile; adequate eye contact; Speech is regular rate, volume and prosody; no psychomotor retardation present; thought process is goal directed; Thought content is treatment, aftercare; otherwise pertinent to relevant topics and without any delusional content, paranoid ideation or grandiosity; + intermittent SI. no HI/AVH expressed. There is no evidence of perceptual disturbance. Patients insight and judgment are fair. Diagnostics Vital Signs (24Hr): Vital Signs - 24 hr 05/15/23 06:00 Temperature 97.0 F Pulse Rate 50 Blood Pressure 104/54 L Pulse Oximetry 98 Oxygen Delivery Method Room Air BMI result Body Mass Index 23.2 Labs 05/09/23 07:32 Medications Medications Current Medications Acetaminophen (Acetaminophen 325 Mg Tablet) 650 mg PO Q6H PRN PRN Reason: Headache/Pain Mild Scale (1-3) Al Hydroxide/Mg Hydroxide (Magnesium Hydrox/Alum Hydrox 30 Ml Oral.Susp) 30 ml PO Q6H PRN PRN Reason: Heartburn/Nausea Baclofen (Baclofen 10 Mg Tablet) 10 mg PO Q6H PRN PRN Reason: muscle spasms Last Admin: 05/15/23 08:46 Dose: 10 mg Buspirone HCl (Buspirone Hcl 10 Mg Tablet) 10 mg PO TID PRN PRN Reason: anxiety Last Admin: 05/14/23 16:04 Dose: 10 mg Cariprazine (Cariprazine Hcl 1.5 Mg Capsule) 1.5 mg PO DAILY [facility] Last Admin: 05/15/23 08:46 Dose: 1.5 mg Clonazepam (Clonazepam 1 Mg Tablet) 1 mg PO BEDTIME PRN PRN Reason: Insomnia Last Admin: 05/14/23 21:40 Dose: 1 mg Clonazepam (Clonazepam 0.5 Mg Tablet) 0.5 mg PO BID PRN PRN Reason: anxiety/restlessness Last Admin: 05/15/23 08:46 Dose: 0.5 mg Methadone HCl (Methadone Hcl 20 Mg/2 Ml Oral.Conc) 40 mg PO DAILY [facility] Last Admin: 05/15/23 08:46 Dose: 40 mg Methadone HCl (Methadone Hcl 20 Mg/2 Ml Oral.Conc) 35 mg PO DAILY@1600 [facility] Last Admin: 05/14/23 16:05 Dose: 35 mg Nicotine (Nicotine 21 Mg Patch.Td24) 21 mg TRANSDERMA DAILY [facility] Last Admin: 05/15/23 10:56 Dose: Not Given Nicotine Polacrilex (Nicotine Polacrilex 2 Mg Gum) 4 mg BUCCAL Q2H PRN PRN Reason: Nicotine Cravings Ondansetron HCl (Ondansetron Odt 4 Mg Tab.Rapdis) 4 mg TRANSLINGU Q8H PRN PRN Reason: Nausea Last Admin: 05/15/23 12:06 Dose: 4 mg Sertraline HCl (Sertraline Hcl 25 Mg Tablet) 25 mg PO DAILY [facility] Last Admin: 05/15/23 08:45 Dose: 25 mg Allergies Allergies Allergy/AdvReac Type Severity Reaction Status Date / Time trazodone [TRAZODONE] Allergy Severe SHORTNESS Verified 05/06/23 12:55 OF BREATH, GASPING FOR AIR , SOB aspirin [ASPIRIN] Allergy Unknown STOMACH Verified 05/06/23 12:55 UPSET, Nausea, nausa ciprofloxacin [Cipro] Allergy Unknown Rash Verified 05/06/23 12:55 promethazine [Phenergan] Allergy Unknown Hives Verified 05/06/23 12:55 Sulfa (Sulfonamide Allergy Unknown Unknown Verified 05/06/23 12:55 Antibiotics) Assessment & Plan Assessment & Plan (1) Prolonged QT interval: Status: Acute Code(s): R94.31 - Abnormal electrocardiogram [ECG] [EKG] (2) Sinus bradycardia: Status: Acute Code(s): R00.1 - Bradycardia, unspecified Assessment and Plan: EKG 05/10/23 shows sinus bradycardia at 42/Min. Corrected QT is 469 milliseconds. Echocardiogram with LVEF of 66%. Otherwise unremarkable. Overall, she is not having any symptoms from bradycardia. However, use of methadone with significant bradycardia is still a concern. As much able, continue to decrease the dosage or consider alternatives. QT was prolonged at arrival which may include effects from the other drugs she was using including cocaine, fentanyl extra. But QT is improved since that time. Discussed in detail with patient regarding methadone effects of the heart including bradycardia, prolonged QT including fatal cardiac arrhythmias. 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 (3) Methadone dependence: Status: Acute Code(s): F11.20 - Opioid dependence, uncomplicated Assessment and Plan: on methadone for pain managment (4) PTSD (post-traumatic stress disorder): Status: Acute Code(s): F43.10 - Post-traumatic stress disorder, unspecified Assessment and Plan: 05/10/23 trial of bupar discussed , pt also on baclofen and clonazepam (5) Major depression, recurrent: Status: Acute Code(s): F33.9 - Major depressive disorder, recurrent, unspecified Plan 05/09: trial of vraylar says she was on olanzapine 2.5mg but want a med that doesn't affect qtc 05/10: trial of buspar PRN anxiety initiated 05/11: agreeable to re-trial wellbutrin, will start at 150 mg tomorrow. interested in CSS. 05/12: tolerating wellbutrin, planning to increase to 300 mg in 3 days. not feeling ready for CSS by wednesday, endorsing SI. 05/13: no sleep last night, refused wellbutrin this morning, asked to DC it today. pt suggest re-trial with zoloft, which she reports has been helpful for her in the past. EKG today with QTc of 496 (460 top normal). 05/14: increase baclofen back to TID PRN, as she was RX'ed outpt. otherwise continue current mgmt. appears a bit more settled than yesterday. 05/15/2023: No changes to current plan. Gradually improving. Reason for continued inpatient stay Substantial Risk for: harm to self Time Spent With Patient Time: Total time managing care of this patient today ____ minutes.
[2023-05-15 21:22] VITALS: BP 108/58; PULSE 52; RESP 18; TEMP 36.5; O2SAT 97
[2023-05-16 06:00] VITALS: BP 94/56; PULSE 47; RESP 16; TEMP 36.8; O2SAT 96
--- NOTE | 2023-05-16 11:29 | HO.PSYCHPN ---
Subjective Subjective Date of Service: 05/16/23 Reason For Visit: SI Interim History: met with patient. Discussed with Nursing. Chart reviewed. Overall has been isolative. Reports today with life insurance underwriter that she is not feeling too bed. Still endorses feeling depressed and tired. Sleep is broken. reports the unit has been more stressful today, however her symptoms are getting slightly better including her sleep. Still having suicidal thoughts on a daily basis, but much less frequent and intense. Is feeling safe. Medication Compliance: Yes Side effects from medications: No Attending Groups: Intermittent Review of Systems Acute medical concerns: No Review of Systems Review of Systems Unremarkable Mental Status Exam Mental Status Exam Narrative: Pt is alert and oriented; behavior is cooperative, engaged; patient is not in distress; combed hair and good hygiene; affect constricted, non-labile; adequate eye contact; Speech is regular rate, volume and prosody; no psychomotor retardation present; thought process is goal directed; Thought content is treatment, aftercare; otherwise pertinent to relevant topics and without any delusional content, paranoid ideation or grandiosity; + intermittent SI. no HI/AVH expressed. There is no evidence of perceptual disturbance. Patients insight and judgment are fair. Diagnostics Vital Signs (24Hr): Vital Signs - 24 hr 05/15/23 21:22 05/16/23 06:00 Temperature 97.7 F 98.2 F Pulse Rate 52 47 L Respiratory Rate 18 16 Blood Pressure 108/58 L 94/56 L Pulse Oximetry 97 96 Oxygen Delivery Method Room Air Room Air BMI result Body Mass Index 23.2 Labs 05/09/23 07:32 Medications Medications Current Medications Acetaminophen (Acetaminophen 325 Mg Tablet) 650 mg PO Q6H PRN PRN Reason: Headache/Pain Mild Scale (1-3) Al Hydroxide/Mg Hydroxide (Magnesium Hydrox/Alum Hydrox 30 Ml Oral.Susp) 30 ml PO Q6H PRN PRN Reason: Heartburn/Nausea Baclofen (Baclofen 10 Mg Tablet) 10 mg PO Q6H PRN PRN Reason: muscle spasms Last Admin: 05/16/23 07:22 Dose: 10 mg Buspirone HCl (Buspirone Hcl 10 Mg Tablet) 10 mg PO TID PRN PRN Reason: anxiety Last Admin: 05/15/23 21:55 Dose: 10 mg Cariprazine (Cariprazine Hcl 1.5 Mg Capsule) 1.5 mg PO DAILY [facility] Last Admin: 05/16/23 08:05 Dose: 1.5 mg Clonazepam (Clonazepam 1 Mg Tablet) 1 mg PO BEDTIME PRN PRN Reason: Insomnia Last Admin: 05/15/23 21:55 Dose: 1 mg Clonazepam (Clonazepam 0.5 Mg Tablet) 0.5 mg PO BID PRN PRN Reason: anxiety/restlessness Last Admin: 05/15/23 16:02 Dose: 0.5 mg Methadone HCl (Methadone Hcl 20 Mg/2 Ml Oral.Conc) 40 mg PO DAILY [facility] Last Admin: 05/16/23 08:04 Dose: 40 mg Methadone HCl (Methadone Hcl 20 Mg/2 Ml Oral.Conc) 35 mg PO DAILY@1600 [facility] Last Admin: 05/15/23 15:59 Dose: 35 mg Nicotine (Nicotine 21 Mg Patch.Td24) 21 mg TRANSDERMA DAILY [facility] Last Admin: 05/16/23 08:22 Dose: Not Given Nicotine Polacrilex (Nicotine Polacrilex 2 Mg Gum) 4 mg BUCCAL Q2H PRN PRN Reason: Nicotine Cravings Ondansetron HCl (Ondansetron Odt 4 Mg Tab.Rapdis) 4 mg TRANSLINGU Q8H PRN PRN Reason: Nausea Last Admin: 05/15/23 12:06 Dose: 4 mg Sertraline HCl (Sertraline Hcl 25 Mg Tablet) 25 mg PO DAILY [facility] Last Admin: 05/16/23 08:05 Dose: 25 mg Allergies Allergies Allergy/AdvReac Type Severity Reaction Status Date / Time trazodone [TRAZODONE] Allergy Severe SHORTNESS Verified 05/06/23 12:55 OF BREATH, GASPING FOR AIR , SOB aspirin [ASPIRIN] Allergy Unknown STOMACH Verified 05/06/23 12:55 UPSET, Nausea, nausa ciprofloxacin [Cipro] Allergy Unknown Rash Verified 05/06/23 12:55 promethazine [Phenergan] Allergy Unknown Hives Verified 05/06/23 12:55 Sulfa (Sulfonamide Allergy Unknown Unknown Verified 05/06/23 12:55 Antibiotics) Assessment & Plan Assessment & Plan (1) Prolonged QT interval: Status: Acute Code(s): R94.31 - Abnormal electrocardiogram [ECG] [EKG] (2) Sinus bradycardia: Status: Acute Code(s): R00.1 - Bradycardia, unspecified Assessment and Plan: EKG 05/10/23 shows sinus bradycardia at 42/Min. Corrected QT is 469 milliseconds. Echocardiogram with LVEF of 66%. Otherwise unremarkable. Overall, she is not having any symptoms from bradycardia. However, use of methadone with significant bradycardia is still a concern. As much able, continue to decrease the dosage or consider alternatives. QT was prolonged at arrival which may include effects from the other drugs she was using including cocaine, fentanyl extra. But QT is improved since that time. Discussed in detail with patient regarding methadone effects of the heart including bradycardia, prolonged QT including fatal cardiac arrhythmias. 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 (3) Methadone dependence: Status: Acute Code(s): F11.20 - Opioid dependence, uncomplicated Assessment and Plan: on methadone for pain managment (4) PTSD (post-traumatic stress disorder): Status: Acute Code(s): F43.10 - Post-traumatic stress disorder, unspecified Assessment and Plan: 05/10/23 trial of bupar discussed , pt also on baclofen and clonazepam (5) Major depression, recurrent: Status: Acute Code(s): F33.9 - Major depressive disorder, recurrent, unspecified Plan 05/09: trial of vraylar says she was on olanzapine 2.5mg but want a med that doesn't affect qtc 05/10: trial of buspar PRN anxiety initiated 05/11: agreeable to re-trial wellbutrin, will start at 150 mg tomorrow. interested in CSS. 05/12: tolerating wellbutrin, planning to increase to 300 mg in 3 days. not feeling ready for CSS by wednesday, endorsing SI. 05/13: no sleep last night, refused wellbutrin this morning, asked to DC it today. pt suggest re-trial with zoloft, which she reports has been helpful for her in the past. EKG today with QTc of 496 (460 top normal). 05/14: increase baclofen back to TID PRN, as she was RX'ed outpt. otherwise continue current mgmt. appears a bit more settled than yesterday. 05/15/2023: No changes to current plan. Gradually improving. 05/16/2023: No changes to current plan Reason for continued inpatient stay Substantial Risk for: harm to self Time Spent With Patient Time: Total time managing care of this patient today ____ minutes.
[2023-05-16 20:45] VITALS: BP 107/56; PULSE 47; RESP 16; TEMP 36.2; O2SAT 98
[2023-05-17 08:38] VITALS: BP 99/58; PULSE 50; RESP 16; TEMP 36.4; O2SAT 97
--- NOTE | 2023-05-17 14:31 | HO.PSYCHPN ---
Subjective Subjective Date of Service: 05/17/23 Reason For Visit: SI Interim History: calm, cooperative. interested in [facility], feeling better but not sure if ready to discharge. concerned she may have to leave program to take care of her mother, who has stage 4 breast CA. will decide in the next 24H. c/o poor sleep last NOC, up and down throughout the night. reports some sympathetic hyperarousal when awakening. c/o split dosing of methadone. EKG results from today reviewed, where QTc was 479. suggests her QTc is not so concerningly high at the moment, we could return to single daily dosing of methadone. pt agrees. pt also asks to increase zoloft dosing to 50 mg daily, which is also agreed to. per staff, getting baclofen and klonopin PRNs BID. worried about her heart. slept about 7 hours overnight. Mental Status Exam Mental Status Exam Narrative: Pt is alert and oriented; behavior is cooperative, engaged; patient is not in distress; combed hair and good hygiene; affect constricted, non-labile; adequate eye contact; Speech is regular rate, volume and prosody; no psychomotor retardation present; thought process is goal directed; Thought content is treatment, aftercare; otherwise pertinent to relevant topics and without any delusional content, paranoid ideation or grandiosity; no SI/HI/AVH expressed. There is no evidence of perceptual disturbance. Patients insight and judgment are fair. Diagnostics Vital Signs (24Hr): Vital Signs - 24 hr 05/16/23 20:45 05/17/23 08:38 Temperature 97.1 F 97.5 F Pulse Rate 47 L 50 Respiratory Rate 16 16 Blood Pressure 107/56 L 99/58 L Pulse Oximetry 98 97 Oxygen Delivery Method Room Air Room Air BMI result Body Mass Index 23.2 Labs 05/09/23 07:32 Medications Medications Current Medications Acetaminophen (Acetaminophen 325 Mg Tablet) 650 mg PO Q6H PRN PRN Reason: Headache/Pain Mild Scale (1-3) Al Hydroxide/Mg Hydroxide (Magnesium Hydrox/Alum Hydrox 30 Ml Oral.Susp) 30 ml PO Q6H PRN PRN Reason: Heartburn/Nausea Baclofen (Baclofen 10 Mg Tablet) 10 mg PO Q6H PRN PRN Reason: muscle spasms Last Admin: 05/17/23 08:42 Dose: 10 mg Buspirone HCl (Buspirone Hcl 10 Mg Tablet) 10 mg PO TID PRN PRN Reason: anxiety Last Admin: 05/16/23 15:15 Dose: 10 mg Cariprazine (Cariprazine Hcl 1.5 Mg Capsule) 1.5 mg PO DAILY [facility] Last Admin: 05/17/23 08:42 Dose: 1.5 mg Clonazepam (Clonazepam 1 Mg Tablet) 1 mg PO BEDTIME PRN PRN Reason: Insomnia Last Admin: 05/16/23 21:18 Dose: 1 mg Clonazepam (Clonazepam 0.5 Mg Tablet) 0.5 mg PO BID PRN PRN Reason: anxiety/restlessness Last Admin: 05/17/23 14:07 Dose: 0.5 mg Methadone HCl (Methadone Hcl 20 Mg/2 Ml Oral.Conc) 75 mg PO DAILY [facility] Nicotine (Nicotine 21 Mg Patch.Td24) 21 mg TRANSDERMA DAILY [facility] Last Admin: 05/17/23 08:43 Dose: Not Given Nicotine Polacrilex (Nicotine Polacrilex 2 Mg Gum) 4 mg BUCCAL Q2H PRN PRN Reason: Nicotine Cravings Ondansetron HCl (Ondansetron Odt 4 Mg Tab.Rapdis) 4 mg TRANSLINGU Q8H PRN PRN Reason: Nausea Last Admin: 05/15/23 12:06 Dose: 4 mg Sertraline HCl (Sertraline Hcl 50 Mg Tablet) 50 mg PO DAILY [facility] Allergies Allergies Allergy/AdvReac Type Severity Reaction Status Date / Time trazodone [TRAZODONE] Allergy Severe SHORTNESS Verified 05/06/23 12:55 OF BREATH, GASPING FOR AIR , SOB aspirin [ASPIRIN] Allergy Unknown STOMACH Verified 05/06/23 12:55 UPSET, Nausea, nausa ciprofloxacin [Cipro] Allergy Unknown Rash Verified 05/06/23 12:55 promethazine [Phenergan] Allergy Unknown Hives Verified 05/06/23 12:55 Sulfa (Sulfonamide Allergy Unknown Unknown Verified 05/06/23 12:55 Antibiotics) Assessment & Plan Assessment & Plan (1) Prolonged QT interval: Status: Acute Code(s): R94.31 - Abnormal electrocardiogram [ECG] [EKG] (2) Sinus bradycardia: Status: Acute Code(s): R00.1 - Bradycardia, unspecified Assessment and Plan: EKG 05/10/23 shows sinus bradycardia at 42/Min. Corrected QT is 469 milliseconds. Echocardiogram with LVEF of 66%. Otherwise unremarkable. Overall, she is not having any symptoms from bradycardia. However, use of methadone with significant bradycardia is still a concern. As much able, continue to decrease the dosage or consider alternatives. QT was prolonged at arrival which may include effects from the other drugs she was using including cocaine, fentanyl extra. But QT is improved since that time. Discussed in detail with patient regarding methadone effects of the heart including bradycardia, prolonged QT including fatal cardiac arrhythmias. boss dyer and was at the bedside during discussion. (3) Methadone dependence: Status: Acute Code(s): F11.20 - Opioid dependence, uncomplicated Assessment and Plan: on methadone for pain managment (4) PTSD (post-traumatic stress disorder): Status: Acute Code(s): F43.10 - Post-traumatic stress disorder, unspecified Assessment and Plan: 05/10/23 trial of bupar discussed , pt also on baclofen and clonazepam (5) Major depression, recurrent: Status: Acute Code(s): F33.9 - Major depressive disorder, recurrent, unspecified Plan 05/09: trial of vraylar says she was on olanzapine 2.5mg but want a med that doesn't affect qtc 05/10: trial of buspar PRN anxiety initiated 05/11: agreeable to re-trial wellbutrin, will start at 150 mg tomorrow. interested in [facility]. 05/12: tolerating wellbutrin, planning to increase to 300 mg in 3 days. not feeling ready for [facility] by wednesday, endorsing SI. 05/13: no sleep last night, refused wellbutrin this morning, asked to DC it today. pt suggest re-trial with zoloft, which she reports has been helpful for her in the past. EKG today with QTc of 496 (460 top normal). 05/14: increase baclofen back to TID PRN, as she was RX'ed outpt. otherwise continue current mgmt. appears a bit more settled than yesterday. 05/15/2023: No changes to current plan. Gradually improving. 05/16/2023: No changes to current plan 05/17: gradual improvement continues. considering whether she is feeling ready for discharge to [facility]. concerned she will have to leave the program to care for her mother, who has stage 4 breast CA, and will not be able to return, or that she will get stuck in [place] when she discharges. change methadone back to single daily dosing of 75 mg per pt request, increase zoloft to 50 mg daily for dep/anx. Reason for continued inpatient stay Substantial Risk for: inability to function and rapid decompensation Time Spent With Patient Time: Total time managing care of this patient today __35__ minutes.
[2023-05-17 19:20] VITALS: BP 113/65; PULSE 50; RESP 15; TEMP 36.4; O2SAT 95
[2023-05-17] MEDS: Baclofen 10 MG TABLET PO (20:53)
[2023-05-17] MEDS: clonazePAM 1 MG TABLET PO (20:53)
[2023-05-18] MEDS: Baclofen 10 MG TABLET PO ×3 (05:09→21:54)
[2023-05-18] MEDS: Acetaminophen 325 MG TABLET 650 MG PO (05:09)
[2023-05-18 07:10] VITALS: BP 98/58; PULSE 41; RESP 16; TEMP 36.3; O2SAT 98
[2023-05-18 08:25] VITALS: BP 98/58; PULSE 41; RESP 16; TEMP 36.3; O2SAT 98
[2023-05-18] MEDS: methADONE HCl 20 MG/2 ML ORAL.CONC 75 MG PO (08:37)
[2023-05-18] MEDS: clonazePAM 0.5 MG TABLET PO ×2 (08:39→16:18)
[2023-05-18] MEDS: Cariprazine HCl 1.5 MG CAPSULE PO (08:39)
[2023-05-18] MEDS: Sertraline HCL 50 MG TABLET PO (08:39)
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
[2023-05-18 20:05] VITALS: BP 118/57; PULSE 50; RESP 16; TEMP 36.6; O2SAT 95
[2023-05-18] MEDS: clonazePAM 1 MG TABLET PO (21:54)
[2023-05-19] MEDS: clonazePAM 0.5 MG TABLET PO ×2 (01:15→10:59)
[2023-05-19 07:30] VITALS: BP 111/56; PULSE 45; RESP 12; TEMP 36.6; O2SAT 98
[2023-05-19] MEDS: Sertraline HCL 50 MG TABLET PO (08:03)
[2023-05-19] MEDS: Cariprazine HCl 1.5 MG CAPSULE PO (08:03)
[2023-05-19] MEDS: methADONE HCl 20 MG/2 ML ORAL.CONC 75 MG PO (08:03)
== END 2023-05-19 11:17 | disposition home or self-care (01) | DRG 751 ==
PROVIDERS: Nurse Practitioner; Admitting Provider Psychiatry & Neurology Psychiatry; Visit Provider Psychiatry & Neurology Psychiatry
DX: F33.1 Major depressive disorder, recurrent, moderate (principal); R45.851 Suicidal ideations; R00.1 Bradycardia, unspecified; F11.20 Opioid dependence, uncomplicated; F43.12 Post-traumatic stress disorder, chronic; R93.41 Abnormal radiologic findings on diagnostic imaging of renal pelvis, ureter, or bladder; Z87.891 Personal history of nicotine dependence; Z59.01 Sheltered homelessness; Z79.899 Other long term (current) drug therapy
CPT/HCPCS: 36415; 80053; 80061; 82565; 93005; 93306

== ENCOUNTER → 2023-05-08 16:20 | Outpatient (BNV) | payer OTHER, SELFPAY | PROVIDERS: Admitting Provider Psychiatry & Neurology Psychiatry; Visit Provider Psychiatry & Neurology Psychiatry | DX: F11.20 Opioid dependence, uncomplicated (principal); F43.11 Post-traumatic stress disorder, acute; R00.1 Bradycardia, unspecified; R94.31 Abnormal electrocardiogram [ECG] [EKG]; F33.9 Major depressive disorder, recurrent, unspecified | CPT/HCPCS: 99231; 99232; 99239 ==

== ENCOUNTER → 2023-05-08 16:20 | Outpatient (BNV) | payer OTHER, SELFPAY | PROVIDERS: Admitting Provider Psychiatry & Neurology Psychiatry; Visit Provider Internal Medicine | DX: R94.31 Abnormal electrocardiogram [ECG] [EKG] (principal); R00.1 Bradycardia, unspecified; F11.20 Opioid dependence, uncomplicated | CPT/HCPCS: 99233 ==

== ENCOUNTER 2023-05-20 22:51 | Inpatient (IN) | payer OTHER, SELFPAY ==
--- NOTE | 2023-05-20 23:15 | ED_ITS ---
HPI - Psych General Chief Complaint: Psychiatric Symptoms Stated Complaint: took 3 baclofen hoping to not wake up. SI w/ plan Time Seen by Provider: 05/20/23 23:02 Source: patient and EMS Mode of arrival: EMS Limitations: no limitations History of Present Illness HPI Narrative: Patient comes to the emergency room via ambulance. Earlier today, according to the patient, she tried to commit suicide by ingesting 3 tablets of baclofen. Patient states she took the medication about 1 hour prior to arrival. Patient denies taking any other medications. Patient states that she has no chest pain, shortness of breath, abdominal pain, nausea vomiting diarrhea. Patient is asymptomatic Related Data Home Medications Medication Instructions Recorded Confirmed baclofen 10 mg tablet 10 mg PO TID PRN anxiety 05/07/23 05/07/23 Previous Rx's Medication Instructions Recorded cariprazine 1.5 mg capsule 1.5 mg PO DAILY 30 days #30 caps 05/18/23 (Vraylar) clonazepam 1 mg tablet (Klonopin) 1 mg PO BEDTIME PRN anxiety 7 days 05/18/23 #11 tabs methadone 10 mg/mL oral 75 mg (7.5 mL) PO DAILY #0 mL 05/18/23 concentrate (Methadose) sertraline 50 mg tablet 50 mg PO DAILY 30 days #30 tabs 05/18/23 Allergies Allergy/AdvReac Type Severity Reaction Status Date / Time trazodone [TRAZODONE] Allergy Severe SHORTNESS Verified 05/06/23 12:55 OF BREATH, GASPING FOR AIR , SOB aspirin [ASPIRIN] Allergy Unknown STOMACH Verified 05/06/23 12:55 UPSET, Nausea, nausa ciprofloxacin [Cipro] Allergy Unknown Rash Verified 05/06/23 12:55 promethazine [Phenergan] Allergy Unknown Hives Verified 05/06/23 12:55 Sulfa (Sulfonamide Allergy Unknown Unknown Verified 05/06/23 12:55 Antibiotics) Review of Systems 2 Review of Systems: Constitutional : No Weight loss, No Fever, No Chills, No Night Sweats, No Fatigue, No Malaise ENT/Mouth : No Hearing loss, No Ear Pain, No Nasal Congestion, No Sinus Pain, No Hoarseness, No sore throat, No Rhinorrhea, No Swallowing Difficulty Eyes: No Eye Pain, No Swelling, No Redness, No Foreign Body, No Discharge, No Vision Changes Cardiovascular : No Chest Pain, No SOB, No Dyspnea on Exertion, No Orthopnea, No Edema, No Palpitations Respiratory : No Cough, No Sputum, No Wheezing, No Smoke Exposure, No Dyspnea Gastrointestinal : No Nausea, No Vomiting, No Diarrhea, No Constipation, No abdominal Pain, No Hematochezia, No Melena Genitourinary : no irregular bleeding, No Dysuria, No Urinary Frequency, No Hematuria, No Urinary Incontinence, No Urgency, No Flank Pain, No Urinary Flow Changes, No Hesitancy Musculoskeletal : No joint pain, No Myalgias, No Joint Swelling Skin : No Skin Lesions, No rash Neuro : No Weakness, No Numbness, No Paresthesias, No Loss of Consciousness, No Dizziness, No Headache Psych : Complaining of anxiety and depression, suicide attempt, no HI Heme/Lymph: No Bruising, No Bleeding,No Lymphadenopathy Endocrine : No Polyuria, No Polydipsia, No Temperature Intolerance PMFSH Past Medical History Onset Date is defined in the Problem List Problems that require an onset date and time if occurred within 24 hrs of arrival to the ED Aortic Dissection and Rupture; Neurologic impairment; Cardiopulmonary Arrest; Endotracheal Intubation; Insertion or Replacement of Mechanical Circulatory Assist Device Medical History Adjustment disorder with mixed disturbance of emotions and conduct in remission Opioid dependence PTSD (post-traumatic stress disorder) MDD (major depressive disorder), recurrent episode, severe COPD (chronic obstructive pulmonary disease) Asthma Cocaine use disorder, moderate, dependence Post traumatic stress disorder Major depression, recurrent Social History Social History Household Members: Other Household Members Other:: Staying with someone 1 other resident Housing: Apartment Do you presently have visiting nurse or other home services: No 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: 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 Tobacco Use Status: Current someday Tobacco user Tobacco use type: Cigarette Cigarette Packs Per Day: 0.5 Cigarettes Per Day: 3 Years Smoked: 40 years e-Cigarette/Vaping Use: Never Used Second Hand Smoke Exposure: Yes Substance Use Type: Crack/Cocaine and Caffiene Advance Directives: No Advance Directives Information Provided: Yes Advance Directives Date on File: 09/20/20 Healthcare Proxy: No Guardian: No service: No Current occupational status: disabled Sexual orientation: Straight/Heterosexual Physical Exam 2 Vital Signs: Vital Signs: Last Vital Signs Temp 98 F 05/20/23 23:24 Pulse 82 05/20/23 23:24 Resp 18 05/20/23 23:24 BP 109/75 05/20/23 23:24 Pulse Ox 98 05/20/23 23:24 O2 Del Method Room Air 05/20/23 23:24 BMI result Body Mass Index 22.3 Const: Other: Appearance: Alert. Oriented X3. No acute distress. Eyes: Pupils equal, round and reactive to light. ENT: Pharynx normal. Neck: Normal inspection. Neck supple. No lymph nodes noted. No crepitus CVS: Normal heart rate and rhythm. Pulses normal. Normal S1 and S2 Respiratory: No respiratory distress. Breath sounds normal. No Wheezing. No rales Abdomen: Soft and nontender. No rigidity. No distention. Skin: Skin warm and dry. Normal skin color. Normal skin turgor. Extremities: No lower extremity edema. No Lacerations. No Rash Neuro: Oriented X 3. No motor deficit. No sensory deficit. Moving all extremities. No slurred speech. CN 2 through 12 grossly intact Psych: calm, cooperative, normal affect Course Course Course Narrative: -all of patient's labs pending -care team consult pending -patient is on a Section 12 started in the ED -physician observation started at 23:15 Medications Administered Discontinued Medications Generic Name Dose Route Start Last Admin Trade Name Donavanq PRN Reason Stop Dose Admin Acetaminophen 975 mg 05/21/23 02:27 05/21/23 02:52 Acetaminophen 325 Mg Tablet PO 05/21/23 02:28 975 mg ONCE ONE Administration Medical Decision Making Medical Decision Making [facility] Narrative: -care team evaluated the patient, patient is a bed search, continues being on a Section 12 Differential Diagnosis Differential Diagnoses: The differential diagnosis associated with the presentation includes (Anxiety, depression, suicide attempt, polysubstance abuse) Admission/Observation Consideration of admission/observation: Escalation of care including admission/observation considered (Patient is on a Section 12, waiting to be seen by the care team to determine patient's disposition) Lab Data 05/21/23 02:48 05/21/23 02:48 Labs: Lab Results 05/20/23 05/20/23 05/21/23 Range/Units 23:41 23:54 02:48 WBC 8.2 (4.8-10.8) X10*3/uL RBC 4.44 (4.20-5.50) X10*6/uL Hgb 13.2 (12.0-16.0) g/dl Hct 39.9 (37.0-47.0) % MCV 89.9 (80.0-98.0) fL MCH 29.7 (27.0-33.0) pg MCHC 33.1 (31.0-35.0) g/dl RDW 14.9 (11.0-16.0) % Plt Count 225 (160-400) X10*3/uL MPV 11.9 (9.4-12.3) fL Immature Gran % (Auto) 0.2 (0.0-0.4) % Neut % (Auto) 57.7 (45-73) % Lymph % (Auto) 29.7 (20-40) % [place] % (Auto) 11.2 H (2-11) % Eos % (Auto) 1.0 (0-4) % Baso % (Auto) 0.2 (0-2) % Lymph # (Auto) 2.4 (1.2-4.9) X10*3/uL [place] # (Auto) 0.9 (0.1-1.2) X10*3/uL Eos # (Auto) 0.1 (0.0-0.4) X10*3/uL Baso # (Auto) 0.0 (0.0-0.2) X10*3/uL Abs Immat Gran (auto) 0.02 (0.00-0.03) X10*3/uL Absolute Neuts (auto) 4.7 (2.0-8.3) x10*3/uL Absolute Nucleated RBC 0.000 (0.0-0.012) X10*3/uL Nucleated RBC % (auto) 0.0 (0.0-0.2) /100WBC Sodium 142 (135-145) mmol/L Potassium 3.9 (3.3-5.1) mmol/L Chloride 104 (96-108) mmol/L Carbon Dioxide 27 (22-29) mmol/L Anion Gap 15 (12-20) BUN 30 H (9-16) mg/dL Creatinine 0.66 (0.5-1.4) mg/dL Estim Creat Clear Calc 85.1 Estimated GFR > 60 Random Glucose 83 (60-115) mg/dL Calcium 10.1 (8.4-10.2) mg/dL Magnesium 2.4 (1.6-2.6) mg/dL Total Bilirubin 0.6 (0.0-1.0) mg/dL Direct Bilirubin 0.2 (0.0-0.5) mg/dL AST 30 (5-31) U/L ALT 16 (0-31) U/L Alkaline Phosphatase 95 (39-117) U/L Troponin I High Sens 5.6 (<3.5-17.0) ng/L Total Protein 8.0 (6.5-8.0) g/dL Albumin 4.5 (3.5-5.0) g/dL Beta HCG, Quant < 2 mIU/mL Salicylates < 5.0 L (15-30) mg/dL Urine Opiates Screen Not Detected (Not Detect) Urine Fentanyl Screen Not Detected (Not Detect) Acetaminophen < 3 (<30) mcg/mL Ur Barbiturates Screen Not Detected (Not Detect) Ur Phencyclidine Scrn Not Detected (Not Detect) Ur Amphetamines Screen Not Detected (Not Detect) U Benzodiazepines Scrn Not Detected (Not Detect) Urine Cocaine Screen POSITIVE H (Not Detect) U Marijuana (THC) Screen Not Detected (Not Detect) Ethyl Alcohol < 10 mg/dL COVID-19 (SAMANTHA) Negative (Negative) COVID-19 Clin Com See Note Discharge Plan Discharge Clinical Impression: Suicidal ideation Patient Disposition: Still a Patient Prescriptions: No Action baclofen 10 mg tablet 10 mg PO TID PRN (Reason: anxiety) Vraylar 1.5 mg Capsule 1.5 mg PO DAILY 30 Days Qty: 30 0RF sertraline 50 mg Tablet 50 mg PO DAILY 30 Days Qty: 30 0RF methadone [Methadose] 10 mg/mL Concentrate 75 mg PO DAILY Qty: 0 0RF Rx Instructions: Partial Fill upon patient request. clonazepam [Klonopin] 1 mg tablet 1 mg PO BEDTIME PRN (Reason: anxiety) 7 Days Qty: 11 0RF Rx Instructions: administer 30 minutes before bedtime as needed and take 1/2 tab twice daily as needed for anxiety. Interventions: Estill-Suicide Risk Severity Scale Last Done: 05/21/23 02:05
[2023-05-20 23:19] VITALS: BP 109/75; PULSE 71; RESP 17; TEMP 36.9; O2SAT 95
[2023-05-20 23:24] VITALS: BP 109/75; BP 110/72; PULSE 82; RESP 18; TEMP 36.6; O2SAT 98; BMI 22.3
[2023-05-20 23:58] LABS: Amphetamine Screen Urine Not Detected (Not Detect); Barbiturates, Urine Not Detected (Not Detect); Benzodiazepines Screen Urine Not Detected (Not Detect); Cannabinoid Screen Urine Not Detected (Not Detect); Cocaine Screen Urine POSITIVE (Not Detect); Fentanyl, urine Not Detected (Not Detect); Opiate Screen Urine Not Detected (Not Detect); Phencyclidine Screen Urine Not Detected (Not Detect)
[2023-05-21 00:38] LABS: COVID-19 Test Negative (Negative); IDNOW Serial# 16C4AD1C
--- NOTE | 2023-05-21 02:04 | PC.NURSE ---
t/w called phlebotomy times two in attempts to get labs from client
--- NOTE | 2023-05-21 02:26 | ECG_ITS ---
Test Reason : ASSESS QT INTERVALS Blood Pressure : / mmHG Vent. Rate : 047 BPM Atrial Rate : 047 BPM P-R Int : 148 ms QRS Dur : 080 ms QT Int : 574 ms P-R-T Axes : 065 027 044 degrees QTc Int : 507 ms Sinus bradycardia Prolonged QT Abnormal ECG When compared with ECG of 17-MAY-2023 10:54, No significant change was found Referred By: Lynn Vides Electronically Signed By:CHADWICK CARIAS MD
[2023-05-21] MEDS: Acetaminophen 325 MG TABLET 975 MG PO (02:52)
[2023-05-21 02:54] LABS: MANUAL DIFF FLAG NO
[2023-05-21 02:55] LABS: Basophils Percent Auto 0.2 % (0-2); Eosinophils Absolute Auto 0.1 X10*3/uL (0.0-0.4); Hematocrit 39.9 % (37.0-47.0); Hemoglobin 13.2 g/dl (12.0-16.0); Imm Gran Abs Auto 0.02 X10*3/uL (0.00-0.03); Imm Gran Pct Auto 0.2 % (0.0-0.4); Lymphocytes Absolute Auto 2.4 X10*3/uL (1.2-4.9); Lymphocytes Percent Auto 29.7 % (20-40); Mean Corpuscular HGB Conc 33.1 g/dl (31.0-35.0); Mean Corpuscular Hemoglobin 29.7 pg (27.0-33.0); Mean Corpuscular Volume 89.9 fL (80.0-98.0); Mean Platelet Volume 11.9 fL (9.4-12.3); Monocytes Absolute Auto 0.9 X10*3/uL (0.1-1.2); Monocytes Percent Auto 11.2 % (2-11); Neutrophils Absolute Auto 4.7 x10*3/uL (2.0-8.3); Neutrophils Percent Auto 57.7 % (45-73); Platelet Count 225 X10*3/uL (160-400); Red Blood Count 4.44 X10*6/uL (4.20-5.50); Red Cell Distribution Width 14.9 % (11.0-16.0); White Blood Count 8.2 X10*3/uL (4.8-10.8)
[2023-05-21 03:10] LABS: Ethanol < 10 mg/dL
[2023-05-21 03:16] LABS: Troponin-I High Sensitivity 5.6 ng/L (<3.5-17.0)
[2023-05-21 03:21] LABS: Acetaminophen LAB < 3 mcg/mL (<30); Alanine Aminotransferase 16 U/L (0-31); Albumin Level 4.5 g/dL (3.5-5.0); Alkaline Phosphatase 95 U/L (39-117); Anion Gap 15 (12-20); Aspartate Amino Transferase 30 U/L (5-31); Bilirubin Direct 0.2 mg/dL (0.0-0.5); Bilirubin Total 0.6 mg/dL (0.0-1.0); Blood Urea Nitrogen 30 mg/dL (9-16); Calcium 10.1 mg/dL (8.4-10.2); Carbon Dioxide 27 mmol/L (22-29); Chloride 104 mmol/L (96-108); Creatinine Clr Calc Pharmacy 85.1; Estimated Glomerular Filt Rate > 60; Glucose Random 83 mg/dL (60-115); HCG Quantitative < 2 mIU/mL; Magnesium 2.4 mg/dL (1.6-2.6); Potassium 3.9 mmol/L (3.3-5.1); Salicylate < 5.0 mg/dL (15-30); Sodium 142 mmol/L (135-145)
[2023-05-21 07:40] VITALS: BP 103/68; PULSE 51; RESP 18; TEMP 36.8; O2SAT 98
[2023-05-21 07:54] LABS: Appearance Urine Turbid; Color Urine Yellow; Glucose Urine UA Negative (Negative); Leukocyte Esterase Urine Trace (Negative); Nitrite Urine Negative (Negative); Specific Gravity - Urine 1.025 (1.005-1.025); UMIC TRIGGER UACC YES; Urine Blood Trace (Negative); Urine Ketones Negative (Negative); Urine Protein Trace mg/dL (Neg-Trace)
[2023-05-21 07:59] LABS: Bacteria Urine Trace (None Seen); Hyaline Casts Urine 0-2 /LPF (0-2); Squamous Epithelial Cell Urine 0-2 /HPF (0-2); WBC Urine 0-5 /HPF (0-5)
--- NOTE | 2023-05-21 08:31 | HE.PHANOTE ---
METHADONE CONFIRMATION FORM PATIENT WAS GETTING 80MG TAKE HOME BOTTLES FROM [facility]. DOSE CHANGED TO 75MG HERE. PATIENT WAS DISCHARGED AND RESTARTED 80MG TAKE HOME BOTTLES. PROVIDER IS RESTARTING 75MG
[2023-05-21] MEDS: Cariprazine HCl 1.5 MG CAPSULE PO (08:56)
[2023-05-21] MEDS: Sertraline HCL 50 MG TABLET PO (08:56)
[2023-05-21] MEDS: methADONE HCl 20 MG/2 ML ORAL.CONC 75 MG PO (08:56)
--- NOTE | 2023-05-21 10:10 | PC.NURSE ---
Called [facility] in [place] who verified client had received 14 take home bottles on 04/26 for 80mg's each. These were only supposed to last until 05/10 and the clinic hasn't seen her since. She was hospitalized during that time and was being given 75mg's on our inpatient unit as her QT interval was high. Client reports she couldn't make it to the clinic yesterday and took one of her 80mg bottles. Client given 75mg's this AM and verification sent to pharmacy.
[2023-05-21] MEDS: clonazePAM 0.5 MG TABLET PO ×2 (11:12→15:52)
--- NOTE | 2023-05-21 11:52 | PC.NURSE ---
1112 Client given 0.5mg Clonazepam PO for anxiety pending effect.
[2023-05-21 12:00] VITALS: BP 110/72; PULSE 47; RESP 16; TEMP 36.8; O2SAT 97
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
[2023-05-21 15:34] VITALS: BMI 22.8
--- NOTE | 2023-05-21 15:55 | MHC.CLN ---
NUTRITION CONSULT FOR 8# WEIGHT LOSS X ONE WEEK. REVIEW OF WEIGHT HX SHOWS NO WEIGHT LOSS SINCE 05/13/23. WEIGHT 05/06/23=54.431 KG, SHOWING MODERATE WEIGHT GAIN. NO NEW NUTRITION INTERVENTIONS AT THIS TIME.
--- NOTE | 2023-05-21 16:01 | PC.NURSE ---
Addendum entered by Betsy Rothman RN 05/21/23 16:23: Kelley was admitted to at 1150 from [facility] Pod? on CV for treatment of MDD and cocaine use disorder. Pt was discharged from 05/19/23, smoked crack on 05/20/23 and overdosed on 3 tabs of prescribed baclofen. It was an overdose. I didn't want to wake up. My friend stopped me after I took 3 of them and made me come to the ED. On admission to the unit Kelley is alert, fully oriented, pleasant and cooperative wtih care.? Mood is depressed. Affect is anxious. She denies hallucinations and no s/s psychosis noted or reported. Thought Process is organized.? She denies ideation, plan or intent to harm herself or others.? Appetite is poor with 8 lb weight loss in the last one week. Sleep is fair. Focus is good. She denies current physical complaint. Pt reports she still plans to not go to shelter substance use treatment program following discharge. ? I need to be available to my sick mother. ? She is unable to identify goals of this admission. She is placed on q 15 minute Safety Checks Original Note: Kelley was admitted to at 1150 from [facility] Pod on CV for treatment of MDD and cocaine use disorder. Precipitant of admission include pt overdosed on 3 tablets of her prescribed baclofen. It was an overdose. I didn't want to wake up. My firend stopped me after I took 3 of them and made me come to the ED. On admission to the unit Kelley is alert, fully oriented, pleasant and cooperative [facility] care. Mood is depressed. Affect is anxious, She denies hallucinations and no s/s psychosis noted or reported. Thought Process is organized. She denies ideation, plan or intent to harm herself or others. Appetite is poor with 8 lb weight loss in the Recent wt loss or gain? Sleep? Focus? Substance Issues - type? date of last use, complicated withdrawal history (seizures, DTs ect?) Medical Issues? Physical complaint? Safety Checks
[2023-05-21 21:00] VITALS: BP 85/53; PULSE 49; RESP 14; TEMP 36.2; O2SAT 96
[2023-05-21] MEDS: clonazePAM 1 MG TABLET PO (22:10)
[2023-05-21] MEDS: hydrOXYzine HCL 25 MG TABLET PO (22:10)
[2023-05-22 07:23] VITALS: BP 101/55; PULSE 43; RESP 14; TEMP 36.3; O2SAT 93
[2023-05-22] MEDS: methADONE HCl 20 MG/2 ML ORAL.CONC 75 MG PO (08:25)
[2023-05-22] MEDS: clonazePAM 0.5 MG TABLET 0.25 MG PO (08:27)
[2023-05-22] MEDS: Cariprazine HCl 1.5 MG CAPSULE PO (08:27)
[2023-05-22] MEDS: Sertraline HCL 25 MG TABLET 75 MG PO (08:27)
[2023-05-22] MEDS: hydrOXYzine HCL 25 MG TABLET PO ×2 (09:42→18:20)
--- NOTE | 2023-05-22 12:56 | P.PNPSI_ITS ---
Subjective Subjective Date of Service: 05/22/23 Reason For Visit: SA Subjective Notes: Conditional Voluntary Interim History: The patient was assessed in the common area she denies current suicidal ideation. She looks dysphoric and she was able to contract for safety in the facility. The staff reported the patient had been compliant with treatment and she had been pleasant and cooperative. Mental Status Exam Mental Status Exam Patient Appearance: Appropriate Patient Orientation: Person and Situation Level of Consciousness: Awake Patient Behavior: Guarded Mood Description: Withdrawn Affect Description: Constricted Patient Cognition Impaired: Yes Ability to Follow Directions: Good Speech Pattern: Clear Hallucinations: None Delusions: Not Present Thought Process: Distracted and Slowed Thinking Thought Content: positive for [place] and positive for Poverty of Content Judgement: Fair Diagnostics Vital Signs (24Hr): Vital Signs - 24 hr 05/21/23 21:00 05/22/23 07:23 Temperature 97.2 F 97.4 F Pulse Rate 49 L 43 L Respiratory Rate 14 14 Blood Pressure 85/53 L 101/55 L Pulse Oximetry 96 93 Oxygen Delivery Method Room Air Room Air BMI result Body Mass Index 22.8 Labs 05/21/23 02:48 05/21/23 02:48 Labs: Laboratory Results - last 48 hr 05/20/23 05/20/23 05/21/23 23:41 23:54 02:48 WBC 8.2 RBC 4.44 Hgb 13.2 Hct 39.9 MCV 89.9 MCH 29.7 MCHC 33.1 RDW 14.9 Plt Count 225 MPV 11.9 Immature Gran % (Auto) 0.2 Neut % (Auto) 57.7 Lymph % (Auto) 29.7 [place] % (Auto) 11.2 H Eos % (Auto) 1.0 Baso % (Auto) 0.2 Lymph # (Auto) 2.4 [place] # (Auto) 0.9 Eos # (Auto) 0.1 Baso # (Auto) 0.0 Abs Immat Gran (auto) 0.02 Absolute Neuts (auto) 4.7 Absolute Nucleated RBC 0.000 Nucleated RBC % (auto) 0.0 Sodium 142 Potassium 3.9 Chloride 104 Carbon Dioxide 27 Anion Gap 15 BUN 30 H Creatinine 0.66 Estim Creat Clear Calc 85.1 Estimated GFR > 60 Random Glucose 83 Calcium 10.1 Magnesium 2.4 Total Bilirubin 0.6 Direct Bilirubin 0.2 AST 30 ALT 16 Alkaline Phosphatase 95 Troponin I High Sens 5.6 Total Protein 8.0 Albumin 4.5 Beta HCG, Quant < 2 Urine Color Yellow Urine Appearance Turbid Urine pH 6.0 Ur Specific [place] 1.025 Urine Protein Trace Urine Glucose (UA) Negative Urine Ketones Negative Urine Blood Trace H Urine Nitrite Negative Ur Leukocyte Esterase Trace H Urine RBC 3-5 H Urine WBC 0-5 Ur Squamous Epith Cells 0-2 Urine Bacteria Trace Hyaline Casts 0-2 Salicylates < 5.0 L Urine Opiates Screen Not Detected Urine Fentanyl Screen Not Detected Acetaminophen < 3 Ur Barbiturates Screen Not Detected Ur Phencyclidine Scrn Not Detected Ur Amphetamines Screen Not Detected U Benzodiazepines Scrn Not Detected Urine Cocaine Screen POSITIVE H U Marijuana (THC) Screen Not Detected Ethyl Alcohol < 10 COVID-19 ([facility]) Negative COVID-19 Clin Com See Note Medications Medications Current Medications Acetaminophen (Acetaminophen 325 Mg Tablet) 650 mg PO Q6H PRN PRN Reason: Headache/Pain Mild Scale (1-3) Al Hydroxide/Mg Hydroxide (Magnesium Hydrox/Alum Hydrox 30 Ml Oral.Susp) 30 ml PO Q6H PRN PRN Reason: Heartburn/Nausea Cariprazine (Cariprazine Hcl 1.5 Mg Capsule) 1.5 mg PO DAILY [facility] Last Admin: 05/22/23 08:27 Dose: 1.5 mg Clonazepam (Clonazepam 0.5 Mg Tablet) 0.25 mg PO BID PRN PRN Reason: Anxiety Last Admin: 05/22/23 08:27 Dose: 0.25 mg Clonazepam (Clonazepam 0.5 Mg Tablet) 0.75 mg PO BEDTIME PRN PRN Reason: anxiety Hydroxyzine HCl (Hydroxyzine Hcl 25 Mg Tablet) 25 mg PO Q6H PRN PRN Reason: Anxiety Last Admin: 05/22/23 09:42 Dose: 25 mg Magnesium Hydroxide (Milk Of Magnesia 30 Ml Oral.Susp) 30 ml PO DAILY PRN PRN Reason: Constipation Methadone HCl (Methadone Hcl 20 Mg/2 Ml Oral.Conc) 75 mg PO DAILY [facility] Last Admin: 05/22/23 08:25 Dose: 75 mg Sertraline HCl (Sertraline Hcl 25 Mg Tablet) 75 mg PO DAILY [facility] Last Admin: 05/22/23 08:27 Dose: 75 mg Trazodone HCl (Trazodone Hcl 50 Mg Tablet) 50 mg PO BEDTIME MRX1 PRN PRN Reason: Insomnia Allergies Allergies Allergy/AdvReac Type Severity Reaction Status Date / Time trazodone [TRAZODONE] Allergy Severe SHORTNESS Verified 05/06/23 12:55 OF BREATH, GASPING FOR AIR , SOB aspirin [ASPIRIN] Allergy Unknown STOMACH Verified 05/06/23 12:55 UPSET, Nausea, nausa ciprofloxacin [Cipro] Allergy Unknown Rash Verified 05/06/23 12:55 promethazine [Phenergan] Allergy Unknown Hives Verified 05/06/23 12:55 Sulfa (Sulfonamide Allergy Unknown Unknown Verified 05/06/23 12:55 Antibiotics) Assessment & Plan Assessment & Plan (1) Major depression, recurrent: Status: Acute Code(s): F33.9 - Major depressive disorder, recurrent, unspecified (2) Prolonged QT interval: Status: Acute Code(s): R94.31 - Abnormal electrocardiogram [ECG] [EKG] (3) Suicidal ideation: Status: Acute Code(s): R45.851 - Suicidal ideations (4) PTSD (post-traumatic stress disorder): Status: Acute Code(s): F43.10 - Post-traumatic stress disorder, unspecified (5) Polysubstance (including opioids) dependence with physiol dependence: Status: Acute Code(s): F19.20 - Other psychoactive substance dependence, uncomplicated Plan do not restart baclofen as pt recently overdosed on it. begin to taper klonopin as well due to concern with co-prescription with methadone and tendency to overdose. increase zoloft to 75 per pt request. otherwise continue discharge medications for now. 05/22 continue same treatment Reason for continued inpatient stay Substantial Risk for: inability to function, rapid decompensation and med/psych decompensation Time Spent With Patient Time: Total time managing care of this patient today __20__ minutes.
[2023-05-22 20:34] VITALS: BP 103/58; PULSE 50; RESP 16; TEMP 36.7; O2SAT 95
[2023-05-22] MEDS: clonazePAM 0.5 MG TABLET 0.75 MG PO (20:50)
[2023-05-22] MEDS: hydrOXYzine HCL 50 MG TABLET PO (21:53)
[2023-05-23 04:07] VITALS: BP 137/72; PULSE 56; RESP 14; O2SAT 99
[2023-05-23 07:10] VITALS: BP 105/55; PULSE 52; RESP 14; TEMP 37.4; O2SAT 95
[2023-05-23] MEDS: Sertraline HCL 25 MG TABLET 75 MG PO (08:19)
[2023-05-23] MEDS: Cariprazine HCl 1.5 MG CAPSULE PO (08:20)
[2023-05-23] MEDS: methADONE HCl 20 MG/2 ML ORAL.CONC 75 MG PO (08:20)
[2023-05-23] MEDS: clonazePAM 0.5 MG TABLET 0.25 MG PO (08:48)
[2023-05-23] MEDS: hydrOXYzine HCL 25 MG TABLET PO (09:08)
[2023-05-23] MEDS: hydrOXYzine HCL 50 MG TABLET PO ×2 (12:19→19:03)
--- NOTE | 2023-05-23 12:23 | HO.PSYCHPN ---
Subjective Subjective Date of Service: 05/23/23 Reason For Visit: SA Subjective Notes: Conditional Voluntary Interim History: The nursing staff reported the patient had been anxious and depressed, she was very upset that her Klonopin dose was lowered. She requested for increase her p.r.n. Vistaril that it was done up to 50 mg p.o.. On interview the patient denies new symptoms she advocated for increase of the Klonopin. No safety concerns at this moment. Mental Status Exam Mental Status Exam Patient Appearance: Appropriate Patient Orientation: Person Level of Consciousness: Awake Patient Behavior: Guarded and Passive Mood Description: Calm Affect Description: Constricted Ability to Follow Directions: Good Speech Pattern: Clear Hallucinations: None Delusions: Not Present Thought Process: Distracted and Evasive Thought Content: positive for [place] and positive for Circumstantial Judgement: Fair Diagnostics Vital Signs (24Hr): Vital Signs - 24 hr 05/22/23 20:34 05/23/23 04:07 05/23/23 07:10 Temperature 98.1 F 99.3 F Pulse Rate 50 56 52 Respiratory Rate 16 14 14 Blood Pressure 103/58 L 137/72 105/55 L Pulse Oximetry 95 99 95 Oxygen Delivery Method Room Air Room Air BMI result Body Mass Index 22.8 Labs 05/21/23 02:48 05/21/23 02:48 Medications Medications Current Medications Acetaminophen (Acetaminophen 325 Mg Tablet) 650 mg PO Q6H PRN PRN Reason: Headache/Pain Mild Scale (1-3) Al Hydroxide/Mg Hydroxide (Magnesium Hydrox/Alum Hydrox 30 Ml Oral.Susp) 30 ml PO Q6H PRN PRN Reason: Heartburn/Nausea Cariprazine (Cariprazine Hcl 1.5 Mg Capsule) 1.5 mg PO DAILY [facility] Last Admin: 05/23/23 08:20 Dose: 1.5 mg Clonazepam (Clonazepam 0.5 Mg Tablet) 0.25 mg PO BID PRN PRN Reason: Anxiety Last Admin: 05/23/23 08:48 Dose: 0.25 mg Clonazepam (Clonazepam 0.5 Mg Tablet) 0.75 mg PO BEDTIME PRN PRN Reason: anxiety Last Admin: 05/22/23 20:50 Dose: 0.75 mg Hydroxyzine HCl (Hydroxyzine Hcl 50 Mg Tablet) 50 mg PO Q6H PRN PRN Reason: Anxiety Last Admin: 05/23/23 12:19 Dose: 50 mg Magnesium Hydroxide (Milk Of Magnesia 30 Ml Oral.Susp) 30 ml PO DAILY PRN PRN Reason: Constipation Methadone HCl (Methadone Hcl 20 Mg/2 Ml Oral.Conc) 75 mg PO DAILY [facility] Last Admin: 05/23/23 08:20 Dose: 75 mg Sertraline HCl (Sertraline Hcl 25 Mg Tablet) 75 mg PO DAILY [facility] Last Admin: 05/23/23 08:19 Dose: 75 mg Trazodone HCl (Trazodone Hcl 50 Mg Tablet) 50 mg PO BEDTIME MRX1 PRN PRN Reason: Insomnia Allergies Allergies Allergy/AdvReac Type Severity Reaction Status Date / Time trazodone [TRAZODONE] Allergy Severe SHORTNESS Verified 05/06/23 12:55 OF BREATH, GASPING FOR AIR , SOB aspirin [ASPIRIN] Allergy Unknown STOMACH Verified 05/06/23 12:55 UPSET, Nausea, nausa ciprofloxacin [Cipro] Allergy Unknown Rash Verified 05/06/23 12:55 promethazine [Phenergan] Allergy Unknown Hives Verified 05/06/23 12:55 Sulfa (Sulfonamide Allergy Unknown Unknown Verified 05/06/23 12:55 Antibiotics) Assessment & Plan Assessment & Plan (1) Major depression, recurrent: Status: Acute Code(s): F33.9 - Major depressive disorder, recurrent, unspecified (2) Prolonged QT interval: Status: Acute Code(s): R94.31 - Abnormal electrocardiogram [ECG] [EKG] (3) Suicidal ideation: Status: Acute Code(s): R45.851 - Suicidal ideations (4) PTSD (post-traumatic stress disorder): Status: Acute Code(s): F43.10 - Post-traumatic stress disorder, unspecified (5) Polysubstance (including opioids) dependence with physiol dependence: Status: Acute Code(s): F19.20 - Other psychoactive substance dependence, uncomplicated Plan do not restart baclofen as pt recently overdosed on it. begin to taper klonopin as well due to concern with co-prescription with methadone and tendency to overdose. increase zoloft to 75 per pt request. otherwise continue discharge medications for now. 05/22 continue same treatment. 05/23 PRN Vistaril increased up to 50 mg, rest the same. Reason for continued inpatient stay Substantial Risk for: inability to function, rapid decompensation and med/psych decompensation Time Spent With Patient Time: Total time managing care of this patient today __20__ minutes.
[2023-05-23] MEDS: clonazePAM 0.5 MG TABLET 0.75 MG PO (19:57)
[2023-05-23 20:00] VITALS: BP 101/57; PULSE 53; RESP 18; TEMP 36.7; O2SAT 97
--- NOTE | 2023-05-23 20:32 | PC.NURSE ---
Kelley stated that she is very upset about having her benzos discontinued however, her clonazepam has in fact not been discontinued but her doses have apparently been decreased. her affect is flat and guarded, with a worries look on her face. she is quiet and isolation. she endorses mild to moderate anxiety and depression she denies suicidal/homicidal ideation and auditory/visual hallucinations. patient stated that she is allergic to trazodone, Dr. Damon made aware, medication discontinued. monitor for safety, continue Plan of Care
[2023-05-24 07:15] VITALS: BP 104/57; PULSE 53; RESP 14; TEMP 37; O2SAT 97
[2023-05-24] MEDS: Cariprazine HCl 1.5 MG CAPSULE PO (08:37)
[2023-05-24] MEDS: hydrOXYzine HCL 50 MG TABLET PO ×3 (08:37→21:25)
[2023-05-24] MEDS: Sertraline HCL 25 MG TABLET 75 MG PO (08:37)
[2023-05-24] MEDS: methADONE HCl 20 MG/2 ML ORAL.CONC 75 MG PO (08:39)
[2023-05-24] MEDS: clonazePAM 0.5 MG TABLET 0.25 MG PO (09:56)
--- NOTE | 2023-05-24 11:56 | HO.PSYCHPN ---
Subjective Subjective Date of Service: 05/24/23 Reason For Visit: SA Subjective Notes: Conditional Voluntary Interim History: Reviewed with . Calm, social with peers, attending groups. Pt reports her anxiety and depression are both high ; pt stated, I'm thinking about going to the [facility] . She reports suicidal ideation with no plan. denies HI/VH/AH. sleeping well. Medication Compliance: Yes Side effects from medications: No Attending Groups: Yes Review of Systems Constitutional: Reports as per HPI Eyes: Reports as per HPI Reports as per HPI Cardiovascular: Reports as per HPI Respiratory: Reports as per HPI Gastrointestinal: Reports as per HPI Genitourinary: Reports as per HPI Musculoskeletal: Reports as per HPI Skin/Breast: Reports as per HPI Reports as per HPI Psychiatric: Reports as per HPI Endocrine: Reports as per HPI Hematologic/Lymphatic: Reports as per HPI Allergic/Immunologic: Reports as per HPI Mental Status Exam Mental Status Exam Narrative: Pt is alert and oriented; behavior is cooperative and calm; dressed in casual attire; mood is described as anxious and depressed ; eye contact appropriate; Speech is normal rate, volume and prosody and not pressured; thought process is organized and goal directed; Thought content is on tx; Pt reports suicidal ideation with no plan. Diagnostics Vital Signs (24Hr): Vital Signs - 24 hr 05/23/23 20:00 05/24/23 07:15 Temperature 98.0 F 98.6 F Pulse Rate 53 53 Respiratory Rate 18 14 Blood Pressure 101/57 L 104/57 L Pulse Oximetry 97 97 Oxygen Delivery Method Room Air Room Air BMI result Body Mass Index 22.8 Labs 05/21/23 02:48 05/21/23 02:48 Medications Medications Current Medications Acetaminophen (Acetaminophen 325 Mg Tablet) 650 mg PO Q6H PRN PRN Reason: Headache/Pain Mild Scale (1-3) Al Hydroxide/Mg Hydroxide (Magnesium Hydrox/Alum Hydrox 30 Ml Oral.Susp) 30 ml PO Q6H PRN PRN Reason: Heartburn/Nausea Cariprazine (Cariprazine Hcl 1.5 Mg Capsule) 1.5 mg PO DAILY [facility] Last Admin: 05/24/23 08:37 Dose: 1.5 mg Clonazepam (Clonazepam 0.5 Mg Tablet) 0.25 mg PO BID PRN PRN Reason: Anxiety Last Admin: 05/24/23 09:56 Dose: 0.25 mg Clonazepam (Clonazepam 0.5 Mg Tablet) 0.75 mg PO BEDTIME PRN PRN Reason: anxiety Last Admin: 05/23/23 19:57 Dose: 0.75 mg Hydroxyzine HCl (Hydroxyzine Hcl 50 Mg Tablet) 50 mg PO Q6H PRN PRN Reason: Anxiety Last Admin: 05/24/23 08:37 Dose: 50 mg Magnesium Hydroxide (Milk Of Magnesia 30 Ml Oral.Susp) 30 ml PO DAILY PRN PRN Reason: Constipation Methadone HCl (Methadone Hcl 20 Mg/2 Ml Oral.Conc) 75 mg PO DAILY [facility] Last Admin: 05/24/23 08:39 Dose: 75 mg Sertraline HCl (Sertraline Hcl 25 Mg Tablet) 75 mg PO DAILY [facility] Last Admin: 05/24/23 08:37 Dose: 75 mg Allergies Allergies Allergy/AdvReac Type Severity Reaction Status Date / Time trazodone [TRAZODONE] Allergy Severe SHORTNESS Verified 05/06/23 12:55 OF BREATH, GASPING FOR AIR , SOB aspirin [ASPIRIN] Allergy Unknown STOMACH Verified 05/06/23 12:55 UPSET, Nausea, nausa ciprofloxacin [Cipro] Allergy Unknown Rash Verified 05/06/23 12:55 promethazine [Phenergan] Allergy Unknown Hives Verified 05/06/23 12:55 Sulfa (Sulfonamide Allergy Unknown Unknown Verified 05/06/23 12:55 Antibiotics) Assessment & Plan Assessment & Plan (1) Major depression, recurrent: Status: Acute Code(s): F33.9 - Major depressive disorder, recurrent, unspecified (2) Prolonged QT interval: Status: Acute Code(s): R94.31 - Abnormal electrocardiogram [ECG] [EKG] (3) Suicidal ideation: Status: Acute Code(s): R45.851 - Suicidal ideations (4) PTSD (post-traumatic stress disorder): Status: Acute Code(s): F43.10 - Post-traumatic stress disorder, unspecified (5) Polysubstance (including opioids) dependence with physiol dependence: Status: Acute Code(s): F19.20 - Other psychoactive substance dependence, uncomplicated Plan do not restart baclofen as pt recently overdosed on it. begin to taper klonopin as well due to concern with co-prescription with methadone and tendency to overdose. increase zoloft to 75 per pt request. otherwise continue discharge medications for now. 05/22 continue same treatment. 05/23 PRN Vistaril increased up to 50 mg, rest the same. 05/24: Calm, social with peers, attending groups. Pt reports her anxiety and depression are both high ; pt stated, I'm thinking about going to the [facility] . She reports suicidal ideation with no plan. denies HI/VH/AH. sleeping well. Continue current tx plan. Patient educated on: diagnosis, medication risk/benefits and therapeutic strategies Informed Consent: understands Reason for continued inpatient stay Substantial Risk for: harm to self and med/psych decompensation Time Spent With Patient Time: Total time managing care of this patient today _20___ minutes.
[2023-05-24] MEDS: clonazePAM 0.5 MG TABLET 0.75 MG PO (20:28)
[2023-05-24 20:45] VITALS: BP 97/59; PULSE 52; RESP 18; TEMP 36.6; O2SAT 96
[2023-05-25 08:25] VITALS: BP 103/57; PULSE 45; RESP 14; TEMP 36.7; O2SAT 96
[2023-05-25] MEDS: Sertraline HCL 25 MG TABLET 75 MG PO (08:31)
[2023-05-25] MEDS: Cariprazine HCl 1.5 MG CAPSULE PO (08:31)
[2023-05-25] MEDS: methADONE HCl 20 MG/2 ML ORAL.CONC 75 MG PO (08:33)
[2023-05-25] MEDS: clonazePAM 0.5 MG TABLET 0.25 MG PO (09:35)
[2023-05-25] MEDS: hydrOXYzine HCL 50 MG TABLET PO (10:40)
--- NOTE | 2023-05-25 13:00 | P.PNPSI_ITS ---
Subjective Subjective Date of Service: 05/25/23 Reason For Visit: SA Subjective Notes: Conditional Voluntary Interim History: Reviewed with . Calm, social with peers. Pt reports feeling anxious today; pt stated, I might want to go to respite rather than the [facility]. I'm going to talk to the social services coordinator about it . Medication Compliance: Yes Side effects from medications: No Review of Systems Constitutional: Reports as per HPI Eyes: Reports as per HPI Reports as per HPI Cardiovascular: Reports as per HPI Respiratory: Reports as per HPI Gastrointestinal: Reports as per HPI Genitourinary: Reports as per HPI Musculoskeletal: Reports as per HPI Skin/Breast: Reports as per HPI Reports as per HPI Psychiatric: Reports as per HPI Endocrine: Reports as per HPI Hematologic/Lymphatic: Reports as per HPI Allergic/Immunologic: Reports as per HPI Mental Status Exam Mental Status Exam Narrative: Pt is alert and oriented; behavior is cooperative and calm; dressed in casual attire; mood is described as anxious and depressed ; eye contact appropriate; Speech is normal rate, volume and prosody and not pressured; thought process is organized and goal directed; Thought content is on tx; Pt reports suicidal ideation with no plan. Patient Appearance: Appropriate Patient Orientation: Person Level of Consciousness: Awake Patient Behavior: Guarded and Passive Mood Description: Calm Affect Description: Constricted Patient Cognition Impaired: Yes Ability to Follow Directions: Good Speech Pattern: Clear Diagnostics Vital Signs (24Hr): Vital Signs - 24 hr 05/24/23 20:45 05/25/23 08:25 Temperature 97.8 F 98.1 F Pulse Rate 52 45 L Respiratory Rate 18 14 Blood Pressure 97/59 L 103/57 L Pulse Oximetry 96 96 Oxygen Delivery Method Room Air Room Air BMI result Body Mass Index 22.8 Labs 05/21/23 02:48 05/21/23 02:48 Medications Medications Current Medications Acetaminophen (Acetaminophen 325 Mg Tablet) 650 mg PO Q6H PRN PRN Reason: Headache/Pain Mild Scale (1-3) Al Hydroxide/Mg Hydroxide (Magnesium Hydrox/Alum Hydrox 30 Ml Oral.Susp) 30 ml PO Q6H PRN PRN Reason: Heartburn/Nausea Cariprazine (Cariprazine Hcl 1.5 Mg Capsule) 1.5 mg PO DAILY [facility] Last Admin: 05/25/23 08:31 Dose: 1.5 mg Clonazepam (Clonazepam 0.5 Mg Tablet) 0.25 mg PO BID PRN PRN Reason: Anxiety Last Admin: 05/25/23 09:35 Dose: 0.25 mg Clonazepam (Clonazepam 0.5 Mg Tablet) 0.75 mg PO BEDTIME PRN PRN Reason: anxiety Last Admin: 05/24/23 20:28 Dose: 0.75 mg Hydroxyzine HCl (Hydroxyzine Hcl 50 Mg Tablet) 50 mg PO Q6H PRN PRN Reason: Anxiety Last Admin: 05/25/23 10:40 Dose: 50 mg Magnesium Hydroxide (Milk Of Magnesia 30 Ml Oral.Susp) 30 ml PO DAILY PRN PRN Reason: Constipation Methadone HCl (Methadone Hcl 20 Mg/2 Ml Oral.Conc) 75 mg PO DAILY [facility] Last Admin: 05/25/23 08:33 Dose: 75 mg Sertraline HCl (Sertraline Hcl 25 Mg Tablet) 75 mg PO DAILY [facility] Last Admin: 05/25/23 08:31 Dose: 75 mg Allergies Allergies Allergy/AdvReac Type Severity Reaction Status Date / Time trazodone [TRAZODONE] Allergy Severe SHORTNESS Verified 05/06/23 12:55 OF BREATH, GASPING FOR AIR , SOB aspirin [ASPIRIN] Allergy Unknown STOMACH Verified 05/06/23 12:55 UPSET, Nausea, nausa ciprofloxacin [Cipro] Allergy Unknown Rash Verified 05/06/23 12:55 promethazine [Phenergan] Allergy Unknown Hives Verified 05/06/23 12:55 Sulfa (Sulfonamide Allergy Unknown Unknown Verified 05/06/23 12:55 Antibiotics) Assessment & Plan Assessment & Plan (1) Major depression, recurrent: Status: Acute Code(s): F33.9 - Major depressive disorder, recurrent, unspecified (2) Prolonged QT interval: Status: Acute Code(s): R94.31 - Abnormal electrocardiogram [ECG] [EKG] (3) Suicidal ideation: Status: Acute Code(s): R45.851 - Suicidal ideations (4) PTSD (post-traumatic stress disorder): Status: Acute Code(s): F43.10 - Post-traumatic stress disorder, unspecified (5) Polysubstance (including opioids) dependence with physiol dependence: Status: Acute Code(s): F19.20 - Other psychoactive substance dependence, uncomplicated Plan do not restart baclofen as pt recently overdosed on it. begin to taper klonopin as well due to concern with co-prescription with methadone and tendency to overdose. increase zoloft to 75 per pt request. otherwise continue discharge medications for now. 05/22 continue same treatment. 05/23 PRN Vistaril increased up to 50 mg, rest the same. 05/24: Calm, social with peers, attending groups. Pt reports her anxiety and depression are both high ; pt stated, I'm thinking about going to the [facility] . She reports suicidal ideation with no plan. denies HI/VH/AH. sleeping well. Continue current tx plan. 05/25: Continue current tx plan. Patient educated on: diagnosis and medication risk/benefits Informed Consent: understands Reason for continued inpatient stay Substantial Risk for: med/psych decompensation Time Spent With Patient Time: Total time managing care of this patient today _20___ minutes.
[2023-05-25] MEDS: OLANZapine 2.5 MG TABLET PO ×2 (14:23→20:35)
[2023-05-25] MEDS: clonazePAM 0.5 MG TABLET 0.75 MG PO (20:35)
[2023-05-25 20:36] VITALS: PULSE 50; RESP 16; TEMP 36.1; O2SAT 97
[2023-05-26 07:50] VITALS: BP 92/51; PULSE 48; RESP 14; TEMP 36.3; O2SAT 96
[2023-05-26] MEDS: Sertraline HCL 25 MG TABLET 75 MG PO (08:29)
[2023-05-26] MEDS: methADONE HCl 20 MG/2 ML ORAL.CONC 75 MG PO (08:29)
[2023-05-26] MEDS: Cariprazine HCl 1.5 MG CAPSULE PO (08:29)
[2023-05-26] MEDS: hydrOXYzine HCL 50 MG TABLET PO ×2 (08:42→14:31)
[2023-05-26] MEDS: clonazePAM 0.5 MG TABLET 0.25 MG PO ×2 (08:42→15:34)
[2023-05-26] MEDS: OLANZapine 2.5 MG TABLET PO ×2 (11:01→21:14)
--- NOTE | 2023-05-26 15:49 | P.PNPSI_ITS ---
Subjective Subjective Date of Service: 05/26/23 Reason For Visit: SA Interim History: mostly cooperative until the issue of MD's recommendation to taper klonopin comes up, then pt irritable, angry, uncooperative. explicitly states she does not want to go to [facility] but would like to discharge to respite. states she had nightmares last night and believes it is attributable to the upcoming anniversary of her daughter's father passing away (06/01). Mental Status Exam Mental Status Exam Narrative: Pt is alert and oriented; no PMA/PMR; patient is not in distress; combed hair and good hygiene; affect constricted, min-labile; adequate eye contact; Speech is regular rate, volume and prosody; no psychomotor retardation present; thought process is goal directed; Thought content is not delusional or paranoid; no SI/HI/AVH expressed. There is no evidence of perceptual disturbance. Patients insight and judgment are fair. Diagnostics Vital Signs (24Hr): Vital Signs - 24 hr 05/25/23 20:36 05/26/23 07:50 Temperature 97.0 F 97.4 F Pulse Rate 50 48 L Respiratory Rate 16 14 Blood Pressure 92/51 L Pulse Oximetry 97 96 Oxygen Delivery Method Room Air BMI result Body Mass Index 22.8 Labs 05/21/23 02:48 05/21/23 02:48 Medications Medications Current Medications Acetaminophen (Acetaminophen 325 Mg Tablet) 650 mg PO Q6H PRN PRN Reason: Headache/Pain Mild Scale (1-3) Al Hydroxide/Mg Hydroxide (Magnesium Hydrox/Alum Hydrox 30 Ml Oral.Susp) 30 ml PO Q6H PRN PRN Reason: Heartburn/Nausea Cariprazine (Cariprazine Hcl 1.5 Mg Capsule) 1.5 mg PO DAILY [facility] Last Admin: 05/26/23 08:29 Dose: 1.5 mg Clonazepam (Clonazepam 0.5 Mg Tablet) 0.25 mg PO BID PRN PRN Reason: Anxiety Last Admin: 05/26/23 15:34 Dose: 0.25 mg Clonazepam (Clonazepam 0.5 Mg Tablet) 0.75 mg PO BEDTIME PRN PRN Reason: anxiety Last Admin: 05/25/23 20:35 Dose: 0.75 mg Hydroxyzine HCl (Hydroxyzine Hcl 50 Mg Tablet) 50 mg PO Q6H PRN PRN Reason: Anxiety Last Admin: 05/26/23 14:31 Dose: 50 mg Magnesium Hydroxide (Milk Of Magnesia 30 Ml Oral.Susp) 30 ml PO DAILY PRN PRN Reason: Constipation Methadone HCl (Methadone Hcl 20 Mg/2 Ml Oral.Conc) 75 mg PO DAILY [facility] Last Admin: 05/26/23 08:29 Dose: 75 mg Olanzapine (Olanzapine 2.5 Mg Tablet) 2.5 mg PO BID PRN PRN Reason: Anxiety Last Admin: 05/26/23 11:01 Dose: 2.5 mg Sertraline HCl (Sertraline Hcl 25 Mg Tablet) 75 mg PO DAILY [facility] Last Admin: 05/26/23 08:29 Dose: 75 mg Allergies Allergies Allergy/AdvReac Type Severity Reaction Status Date / Time trazodone [TRAZODONE] Allergy Severe SHORTNESS Verified 05/06/23 12:55 OF BREATH, GASPING FOR AIR , SOB aspirin [ASPIRIN] Allergy Unknown STOMACH Verified 05/06/23 12:55 UPSET, Nausea, nausa ciprofloxacin [Cipro] Allergy Unknown Rash Verified 05/06/23 12:55 promethazine [Phenergan] Allergy Unknown Hives Verified 05/06/23 12:55 Sulfa (Sulfonamide Allergy Unknown Unknown Verified 05/06/23 12:55 Antibiotics) Assessment & Plan Assessment & Plan (1) Major depression, recurrent: Status: Acute Code(s): F33.9 - Major depressive disorder, recurrent, unspecified (2) Prolonged QT interval: Status: Acute Code(s): R94.31 - Abnormal electrocardiogram [ECG] [EKG] (3) Suicidal ideation: Status: Acute Code(s): R45.851 - Suicidal ideations (4) PTSD (post-traumatic stress disorder): Status: Acute Code(s): F43.10 - Post-traumatic stress disorder, unspecified (5) Polysubstance (including opioids) dependence with physiol dependence: Status: Acute Code(s): F19.20 - Other psychoactive substance dependence, uncomplicated Plan do not restart baclofen as pt recently overdosed on it. begin to taper klonopin as well due to concern with co-prescription with methadone and tendency to overdose. increase zoloft to 75 per pt request. otherwise continue discharge medications for now. 05/22 continue same treatment. 05/23 PRN Vistaril increased up to 50 mg, rest the same. 05/24: Calm, social with peers, attending groups. Pt reports her anxiety and depression are both high ; pt stated, I'm thinking about going to the [facility] . She reports suicidal ideation with no plan. denies HI/VH/AH. sleeping well. Continue current tx plan. 05/25: Continue current tx plan. 05/26: continue current mgmt. declining [facility], asking for DC to respite. Reason for continued inpatient stay Substantial Risk for: inability to function and rapid decompensation Time Spent With Patient Time: Total time managing care of this patient today __25__ minutes.
[2023-05-26 21:12] VITALS: BP 91/58; PULSE 58; RESP 14; TEMP 36.1; O2SAT 96
[2023-05-26] MEDS: clonazePAM 0.5 MG TABLET 0.75 MG PO (21:20)
[2023-05-27 07:00] VITALS: BMI 22.4
[2023-05-27 07:15] VITALS: BP 95/51; PULSE 53; RESP 18; TEMP 36.6; O2SAT 96
[2023-05-27] MEDS: methADONE HCl 20 MG/2 ML ORAL.CONC 75 MG PO (08:51)
[2023-05-27] MEDS: Sertraline HCL 25 MG TABLET 75 MG PO (08:51)
[2023-05-27] MEDS: Cariprazine HCl 1.5 MG CAPSULE PO (08:51)
[2023-05-27] MEDS: hydrOXYzine HCL 50 MG TABLET PO ×2 (09:03→18:27)
[2023-05-27] MEDS: clonazePAM 0.5 MG TABLET 0.25 MG PO ×2 (12:12→20:17)
[2023-05-27] MEDS: OLANZapine 2.5 MG TABLET PO ×2 (12:12→20:16)
--- NOTE | 2023-05-27 15:41 | P.PNPSI_ITS ---
Subjective Subjective Date of Service: 05/27/23 Reason For Visit: SA Interim History: calm, cooperative. c/o nightmares, declines any change in HS meds. asks to increase zoloft today, reports she has been on up to 250 mg in the past. MD agrees to increase dose. awaiting respite bed. Mental Status Exam Mental Status Exam Narrative: Pt is alert and oriented; no PMA/PMR; patient is not in distress; combed hair and good hygiene; affect constricted, min-labile; adequate eye contact; Speech is regular rate, volume and prosody; no psychomotor retardation present; thought process is goal directed; Thought content is not delusional or paranoid; no SI/HI/AVH expressed. There is no evidence of perceptual disturbance. Patients insight and judgment are fair. Diagnostics Vital Signs (24Hr): Vital Signs - 24 hr 05/26/23 21:12 05/27/23 07:15 Temperature 96.9 F 97.8 F Pulse Rate 58 53 Respiratory Rate 14 18 Blood Pressure 91/58 L 95/51 L Pulse Oximetry 96 96 Oxygen Delivery Method Room Air Room Air BMI result Body Mass Index 22.4 Labs 05/21/23 02:48 05/21/23 02:48 Medications Medications Current Medications Acetaminophen (Acetaminophen 325 Mg Tablet) 650 mg PO Q6H PRN PRN Reason: Headache/Pain Mild Scale (1-3) Al Hydroxide/Mg Hydroxide (Magnesium Hydrox/Alum Hydrox 30 Ml Oral.Susp) 30 ml PO Q6H PRN PRN Reason: Heartburn/Nausea Cariprazine (Cariprazine Hcl 1.5 Mg Capsule) 1.5 mg PO DAILY [facility] Last Admin: 05/27/23 08:51 Dose: 1.5 mg Clonazepam (Clonazepam 0.5 Mg Tablet) 0.25 mg PO BID PRN PRN Reason: Anxiety Last Admin: 05/27/23 12:12 Dose: 0.25 mg Clonazepam (Clonazepam 0.5 Mg Tablet) 0.75 mg PO BEDTIME PRN PRN Reason: anxiety Last Admin: 05/26/23 21:20 Dose: 0.75 mg Hydroxyzine HCl (Hydroxyzine Hcl 50 Mg Tablet) 50 mg PO Q6H PRN PRN Reason: Anxiety Last Admin: 05/27/23 09:03 Dose: 50 mg Magnesium Hydroxide (Milk Of Magnesia 30 Ml Oral.Susp) 30 ml PO DAILY PRN PRN Reason: Constipation Methadone HCl (Methadone Hcl 20 Mg/2 Ml Oral.Conc) 75 mg PO DAILY [facility] Last Admin: 05/27/23 08:51 Dose: 75 mg Olanzapine (Olanzapine 2.5 Mg Tablet) 2.5 mg PO BID PRN PRN Reason: Anxiety Last Admin: 05/27/23 12:12 Dose: 2.5 mg Sertraline HCl (Sertraline Hcl 100 Mg Tablet) 100 mg PO DAILY [facility] Allergies Allergies Allergy/AdvReac Type Severity Reaction Status Date / Time trazodone [TRAZODONE] Allergy Severe SHORTNESS Verified 05/06/23 12:55 OF BREATH, GASPING FOR AIR , SOB aspirin [ASPIRIN] Allergy Unknown STOMACH Verified 05/06/23 12:55 UPSET, Nausea, nausa ciprofloxacin [Cipro] Allergy Unknown Rash Verified 05/06/23 12:55 promethazine [Phenergan] Allergy Unknown Hives Verified 05/06/23 12:55 Sulfa (Sulfonamide Allergy Unknown Unknown Verified 05/06/23 12:55 Antibiotics) Assessment & Plan Assessment & Plan (1) Major depression, recurrent: Status: Acute Code(s): F33.9 - Major depressive disorder, recurrent, unspecified (2) Prolonged QT interval: Status: Acute Code(s): R94.31 - Abnormal electrocardiogram [ECG] [EKG] (3) Suicidal ideation: Status: Resolved Code(s): R45.851 - Suicidal ideations (4) PTSD (post-traumatic stress disorder): Status: Acute Code(s): F43.10 - Post-traumatic stress disorder, unspecified (5) Polysubstance (including opioids) dependence with physiol dependence: Status: Acute Code(s): F19.20 - Other psychoactive substance dependence, uncomplicated Plan do not restart baclofen as pt recently overdosed on it. begin to taper klonopin as well due to concern with co-prescription with methadone and tendency to overdose. increase zoloft to 75 per pt request. otherwise continue discharge medications for now. 05/22 continue same treatment. 05/23 PRN Vistaril increased up to 50 mg, rest the same. 05/24: Calm, social with peers, attending groups. Pt reports her anxiety and depression are both high ; pt stated, I'm thinking about going to the [facility] . She reports suicidal ideation with no plan. denies HI/VH/AH. sleeping well. Continue current tx plan. 05/25: Continue current tx plan. 05/26: continue current mgmt. declining [facility], asking for DC to respite. 05/27: increase zoloft to 100 mg daily as of tomorrow. nightmares persist, otherwise generally stable. awaiting word from respite. Reason for continued inpatient stay Substantial Risk for: inability to function and rapid decompensation Time Spent With Patient Time: Total time managing care of this patient today __25__ minutes.
[2023-05-27 20:00] VITALS: BP 109/55; PULSE 58; RESP 18; TEMP 36.8; O2SAT 96
[2023-05-27] MEDS: clonazePAM 0.5 MG TABLET 0.75 MG PO (20:16)
[2023-05-28 07:25] VITALS: BP 97/56; PULSE 48; RESP 14; TEMP 37.6; O2SAT 98
[2023-05-28] MEDS: Cariprazine HCl 1.5 MG CAPSULE PO (08:45)
[2023-05-28] MEDS: Sertraline HCL 100 MG TABLET PO (08:45)
[2023-05-28] MEDS: methADONE HCl 20 MG/2 ML ORAL.CONC 75 MG PO (08:45)
[2023-05-28] MEDS: hydrOXYzine HCL 50 MG TABLET PO ×2 (09:04→16:11)
[2023-05-28] MEDS: clonazePAM 0.5 MG TABLET 0.25 MG PO ×2 (09:05→16:11)
[2023-05-28] MEDS: OLANZapine 2.5 MG TABLET PO (10:55)
--- NOTE | 2023-05-28 13:00 | HO.PSYCHPN ---
Subjective Subjective Date of Service: 05/28/23 Reason For Visit: SA Interim History: nightmares last night. asking for something to help her sleep better for the short term, agrees to zyprexa 10 mg QHS for now. per staff, having nightmares. using zyprexa PRN, which she finds helpful for anxiety. appeared to have slept overnight. using all PRNs as available. Mental Status Exam Mental Status Exam Narrative: Pt is alert and oriented; no PMA/PMR; patient is not in distress; combed hair and good hygiene; affect constricted, non-labile; adequate eye contact; Speech is regular rate, volume and prosody; no psychomotor retardation present; thought process is goal directed; Thought content is not delusional or paranoid; no SI/HI/AVH expressed. There is no evidence of perceptual disturbance. Patients insight and judgment are fair. Diagnostics Vital Signs (24Hr): Vital Signs - 24 hr 05/27/23 20:00 05/28/23 07:25 Temperature 98.2 F 99.6 F Pulse Rate 58 48 L Respiratory Rate 18 14 Blood Pressure 109/55 L 97/56 L Pulse Oximetry 96 98 Oxygen Delivery Method Room Air Room Air BMI result Body Mass Index 22.4 Labs 05/21/23 02:48 05/21/23 02:48 Medications Medications Current Medications Acetaminophen (Acetaminophen 325 Mg Tablet) 650 mg PO Q6H PRN PRN Reason: Headache/Pain Mild Scale (1-3) Al Hydroxide/Mg Hydroxide (Magnesium Hydrox/Alum Hydrox 30 Ml Oral.Susp) 30 ml PO Q6H PRN PRN Reason: Heartburn/Nausea Cariprazine (Cariprazine Hcl 1.5 Mg Capsule) 1.5 mg PO DAILY [facility] Last Admin: 05/28/23 08:45 Dose: 1.5 mg Clonazepam (Clonazepam 0.5 Mg Tablet) 0.25 mg PO BID PRN PRN Reason: Anxiety Last Admin: 05/28/23 09:05 Dose: 0.25 mg Clonazepam (Clonazepam 0.5 Mg Tablet) 0.75 mg PO BEDTIME PRN PRN Reason: anxiety Last Admin: 05/27/23 20:16 Dose: 0.75 mg Hydroxyzine HCl (Hydroxyzine Hcl 50 Mg Tablet) 50 mg PO Q6H PRN PRN Reason: Anxiety Last Admin: 05/28/23 09:04 Dose: 50 mg Magnesium Hydroxide (Milk Of Magnesia 30 Ml Oral.Susp) 30 ml PO DAILY PRN PRN Reason: Constipation Methadone HCl (Methadone Hcl 20 Mg/2 Ml Oral.Conc) 75 mg PO DAILY [facility] Last Admin: 05/28/23 08:45 Dose: 75 mg Olanzapine (Olanzapine 2.5 Mg Tablet) 2.5 mg PO BID PRN PRN Reason: Anxiety Last Admin: 05/28/23 10:55 Dose: 2.5 mg Olanzapine (Olanzapine 10 Mg Tablet) 10 mg PO BEDTIME PRN PRN Reason: insomnia Sertraline HCl (Sertraline Hcl 100 Mg Tablet) 100 mg PO DAILY [facility] Last Admin: 05/28/23 08:45 Dose: 100 mg Allergies Allergies Allergy/AdvReac Type Severity Reaction Status Date / Time trazodone [TRAZODONE] Allergy Severe SHORTNESS Verified 05/06/23 12:55 OF BREATH, GASPING FOR AIR , SOB aspirin [ASPIRIN] Allergy Unknown STOMACH Verified 05/06/23 12:55 UPSET, Nausea, nausa ciprofloxacin [Cipro] Allergy Unknown Rash Verified 05/06/23 12:55 promethazine [Phenergan] Allergy Unknown Hives Verified 05/06/23 12:55 Sulfa (Sulfonamide Allergy Unknown Unknown Verified 05/06/23 12:55 Antibiotics) Assessment & Plan Assessment & Plan (1) Major depression, recurrent: Status: Acute Code(s): F33.9 - Major depressive disorder, recurrent, unspecified (2) Prolonged QT interval: Status: Acute Code(s): R94.31 - Abnormal electrocardiogram [ECG] [EKG] (3) Suicidal ideation: Status: Resolved Code(s): R45.851 - Suicidal ideations (4) PTSD (post-traumatic stress disorder): Status: Acute Code(s): F43.10 - Post-traumatic stress disorder, unspecified (5) Polysubstance (including opioids) dependence with physiol dependence: Status: Acute Code(s): F19.20 - Other psychoactive substance dependence, uncomplicated Plan do not restart baclofen as pt recently overdosed on it. begin to taper klonopin as well due to concern with co-prescription with methadone and tendency to overdose. increase zoloft to 75 per pt request. otherwise continue discharge medications for now. 05/22 continue same treatment. 05/23 PRN Vistaril increased up to 50 mg, rest the same. 05/24: Calm, social with peers, attending groups. Pt reports her anxiety and depression are both high ; pt stated, I'm thinking about going to the [facility] . She reports suicidal ideation with no plan. denies HI/VH/AH. sleeping well. Continue current tx plan. 05/25: Continue current tx plan. 05/26: continue current mgmt. declining [facility], asking for DC to respite. 05/27: increase zoloft to 100 mg daily as of tomorrow. nightmares persist, otherwise generally stable. awaiting word from respite. 05/28: adding zyprexa 10 mg QHS PRN insomnia due to recent nightmares. otherwise continue current mgmt, respite bed expected early/mid next week. Reason for continued inpatient stay Substantial Risk for: inability to function and rapid decompensation Time Spent With Patient Time: Total time managing care of this patient today __25__ minutes.
[2023-05-28 19:45] VITALS: BP 100/56; PULSE 50; RESP 16; TEMP 36.5; O2SAT 95
[2023-05-28] MEDS: clonazePAM 0.5 MG TABLET 0.75 MG PO (21:07)
[2023-05-28] MEDS: OLANZapine 10 MG TABLET PO (21:08)
--- NOTE | 2023-05-29 | ECG_ITS ---
Test Reason : qt recheck Blood Pressure : / mmHG Vent. Rate : 046 BPM Atrial Rate : 046 BPM P-R Int : 178 ms QRS Dur : 076 ms QT Int : 516 ms P-R-T Axes : -06 023 037 degrees QTc Int : 451 ms Sinus bradycardia Otherwise normal ECG No significant changes when compared with the previous EKG of 21 may 2023 Referred By: Alexa Layne Electronically Signed By:JEN TAYLOR
[2023-05-29] MEDS: hydrOXYzine HCL 50 MG TABLET PO ×2 (02:03→11:05)
[2023-05-29] MEDS: OLANZapine 2.5 MG TABLET PO ×2 (02:03→16:22)
[2023-05-29 08:10] VITALS: BP 92/50; PULSE 62; RESP 18; TEMP 36.6; O2SAT 97
[2023-05-29] MEDS: Sertraline HCL 100 MG TABLET PO (09:09)
[2023-05-29] MEDS: Cariprazine HCl 1.5 MG CAPSULE PO (09:09)
[2023-05-29] MEDS: methADONE HCl 20 MG/2 ML ORAL.CONC 75 MG PO (09:09)
--- NOTE | 2023-05-29 11:32 | HO.PSYCHPN ---
Subjective Subjective Date of Service: 05/29/23 Reason For Visit: SA Subjective Notes: Conditional Voluntary Interim History: Pt reports waking up at night but sleep better with olanzapine than without it. Noted while meeting with pt, she is tapping her feet which she reports has been on going. She denies SI/HI. She reports some anxiety. She states she feels better in terms of mood and more future oriented. Her BP has been low- also check ortho hotn--> lying 109/55, HR 51, standing 76/52. encourage to drink fluids, but will also avoid medication with alpha-adrenergic properties (like olanzapine) Review of Systems Review of Systems Constitutional : No Weight loss, No Fever, No Chills, No Night Sweats, No Fatigue, No Malaise ENT/Mouth : No Hearing loss, No Ear Pain, No Nasal Congestion, No Sinus Pain, No Hoarseness, No sore throat, No Rhinorrhea, No Swallowing Difficulty Eyes: No Eye Pain, No Swelling, No Redness, No Foreign Body, No Discharge, No Vision Changes Cardiovascular : No Chest Pain, No SOB, No Dyspnea on Exertion, No Orthopnea, No Edema, No Palpitations Respiratory : No Cough, No Sputum, No Wheezing, No Smoke Exposure, No Dyspnea Gastrointestinal : No Nausea, No Vomiting, No Diarrhea, No Constipation, No abdominal Pain, No Hematochezia, No Melena Genitourinary : no irregular bleeding, No Dysuria, No Urinary Frequency, No Hematuria, No Urinary Incontinence, No Urgency, No Flank Pain, No Urinary Flow Changes, No Hesitancy Musculoskeletal : No joint pain, No Myalgias, No Joint Swelling Skin : No Skin Lesions, No rash Neuro : No Weakness, No Numbness, No Paresthesias, No Loss of Consciousness, No Dizziness, No Headache Psych : Complaining of anxiety and depression, suicide attempt, no HI Heme/Lymph: No Bruising, No Bleeding,No Lymphadenopathy Endocrine : No Polyuria, No Polydipsia, No Temperature Intolerance Constitutional: Reports as per HPI Eyes: Reports as per HPI Reports as per HPI Cardiovascular: Reports as per HPI Respiratory: Reports as per HPI Gastrointestinal: Reports as per HPI Musculoskeletal: Reports as per HPI Skin/Breast: Reports as per HPI Reports as per HPI Psychiatric: Reports as per HPI Endocrine: Reports as per HPI Hematologic/Lymphatic: Reports as per HPI Allergic/Immunologic: Reports as per HPI Mental Status Exam Mental Status Exam Narrative: Pt is alert and oriented; no PMA/PMR; patient is not in distress; combed hair and good hygiene; affect constricted, non-labile; adequate eye contact; Speech is regular rate, volume and prosody; no psychomotor retardation present; thought process is goal directed; Thought content is not delusional or paranoid; no SI/HI/AVH expressed. There is no evidence of perceptual disturbance. Patients insight and judgment are fair. Diagnostics Vital Signs (24Hr): Vital Signs - 24 hr 05/28/23 19:45 05/29/23 08:10 Temperature 97.7 F 98 F Pulse Rate 50 62 Respiratory Rate 16 18 Blood Pressure 100/56 L 92/50 L Pulse Oximetry 95 97 Oxygen Delivery Method Room Air Room Air BMI result Body Mass Index 22.4 Labs 05/21/23 02:48 05/21/23 02:48 Medications Medications Current Medications Acetaminophen (Acetaminophen 325 Mg Tablet) 650 mg PO Q6H PRN PRN Reason: Headache/Pain Mild Scale (1-3) Al Hydroxide/Mg Hydroxide (Magnesium Hydrox/Alum Hydrox 30 Ml Oral.Susp) 30 ml PO Q6H PRN PRN Reason: Heartburn/Nausea Cariprazine (Cariprazine Hcl 1.5 Mg Capsule) 1.5 mg PO DAILY [facility] Last Admin: 05/29/23 09:09 Dose: 1.5 mg Clonazepam (Clonazepam 0.5 Mg Tablet) 0.25 mg PO BID PRN PRN Reason: Anxiety Last Admin: 05/28/23 16:11 Dose: 0.25 mg Clonazepam (Clonazepam 0.5 Mg Tablet) 0.75 mg PO BEDTIME PRN PRN Reason: anxiety Last Admin: 05/28/23 21:07 Dose: 0.75 mg Hydroxyzine HCl (Hydroxyzine Hcl 50 Mg Tablet) 50 mg PO Q6H PRN PRN Reason: Anxiety Last Admin: 05/29/23 11:05 Dose: 50 mg Magnesium Hydroxide (Milk Of Magnesia 30 Ml Oral.Susp) 30 ml PO DAILY PRN PRN Reason: Constipation Methadone HCl (Methadone Hcl 20 Mg/2 Ml Oral.Conc) 75 mg PO DAILY [facility] Last Admin: 05/29/23 09:09 Dose: 75 mg Olanzapine (Olanzapine 2.5 Mg Tablet) 2.5 mg PO BID PRN PRN Reason: Anxiety Last Admin: 05/29/23 02:03 Dose: 2.5 mg Olanzapine (Olanzapine 10 Mg Tablet) 10 mg PO BEDTIME PRN PRN Reason: insomnia Last Admin: 05/28/23 21:08 Dose: 10 mg Sertraline HCl (Sertraline Hcl 100 Mg Tablet) 100 mg PO DAILY [facility] Last Admin: 05/29/23 09:09 Dose: 100 mg Allergies Allergies Allergy/AdvReac Type Severity Reaction Status Date / Time trazodone [TRAZODONE] Allergy Severe SHORTNESS Verified 05/06/23 12:55 OF BREATH, GASPING FOR AIR , SOB aspirin [ASPIRIN] Allergy Unknown STOMACH Verified 05/06/23 12:55 UPSET, Nausea, nausa ciprofloxacin [Cipro] Allergy Unknown Rash Verified 05/06/23 12:55 promethazine [Phenergan] Allergy Unknown Hives Verified 05/06/23 12:55 Sulfa (Sulfonamide Allergy Unknown Unknown Verified 05/06/23 12:55 Antibiotics) Assessment & Plan Assessment & Plan (1) Major depression, recurrent: Status: Acute Code(s): F33.9 - Major depressive disorder, recurrent, unspecified (2) Prolonged QT interval: Status: Acute Code(s): R94.31 - Abnormal electrocardiogram [ECG] [EKG] Assessment and Plan: rechecked EKG on 05/29, Qtc has improved 451ms (3) Suicidal ideation: Status: Resolved Code(s): R45.851 - Suicidal ideations (4) PTSD (post-traumatic stress disorder): Status: Acute Code(s): F43.10 - Post-traumatic stress disorder, unspecified (5) Polysubstance (including opioids) dependence with physiol dependence: Status: Acute Code(s): F19.20 - Other psychoactive substance dependence, uncomplicated Plan do not restart baclofen as pt recently overdosed on it. begin to taper klonopin as well due to concern with co-prescription with methadone and tendency to overdose. increase zoloft to 75 per pt request. otherwise continue discharge medications for now. 05/22 continue same treatment. 05/23 PRN Vistaril increased up to 50 mg, rest the same. 05/24: Calm, social with peers, attending groups. Pt reports her anxiety and depression are both high ; pt stated, I'm thinking about going to the [facility] . She reports suicidal ideation with no plan. denies HI/VH/AH. sleeping well. Continue current tx plan. 05/25: Continue current tx plan. 05/26: continue current mgmt. declining [facility], asking for DC to respite. 05/27: increase zoloft to 100 mg daily as of tomorrow. nightmares persist, otherwise generally stable. awaiting word from respite. 05/28: adding zyprexa 10 mg QHS PRN insomnia due to recent nightmares. otherwise continue current mgmt, respite bed expected early/mid next week. 05/29 added magnesium 400mg po qhs with hope that with some degree of suspect RLS may help with sleep. monitor ortho HOTn, which she has and limit meds alpha adrenergic properties like olanzapine or clonidine or prazosin. Reason for continued inpatient stay Substantial Risk for: harm to self Time Spent With Patient Time: Total time managing care of this patient today ____ minutes.
[2023-05-29 12:00] VITALS: BP 109/55; PULSE 51; O2SAT 96
[2023-05-29 12:01] VITALS: BP 80/52; PULSE 55; O2SAT 96
[2023-05-29 12:02] VITALS: BP 76/50; PULSE 61; O2SAT 96
[2023-05-29] MEDS: clonazePAM 0.5 MG TABLET 0.25 MG PO (13:34)
--- NOTE | 2023-05-29 14:25 | PC.NURSE ---
orthostatic vital signs reported to Alexa Layne NP at 1205 today
[2023-05-29 19:05] VITALS: BP 94/55; PULSE 68; RESP 16; TEMP 36.7; O2SAT 96
[2023-05-29] MEDS: clonazePAM 0.5 MG TABLET 0.75 MG PO (20:31)
[2023-05-29] MEDS: Magnesium Oxide 400 MG TABLET PO (20:31)
[2023-05-29] MEDS: OLANZapine 10 MG TABLET PO (20:31)
[2023-05-30 07:15] VITALS: BP 97/52; PULSE 50; RESP 16; TEMP 36.3; O2SAT 99
[2023-05-30] MEDS: Sertraline HCL 100 MG TABLET PO (09:09)
[2023-05-30] MEDS: Cariprazine HCl 1.5 MG CAPSULE PO (09:09)
[2023-05-30] MEDS: methADONE HCl 20 MG/2 ML ORAL.CONC 75 MG PO (09:10)
[2023-05-30] MEDS: clonazePAM 0.5 MG TABLET 0.25 MG PO ×2 (09:15→18:31)
[2023-05-30] MEDS: hydrOXYzine HCL 50 MG TABLET PO (10:58)
[2023-05-30] MEDS: OLANZapine 2.5 MG TABLET PO (13:47)
--- NOTE | 2023-05-30 14:20 | HO.PSYCHPN ---
Subjective Subjective Date of Service: 05/30/23 Reason For Visit: SA Subjective Notes: Conditional Voluntary Interim History: Pt slept through the night. She reports best sleep in years. She reports feeling restless though, again noted tapping of her feet. Discussed that with prolonged use of cocaine she is more prone to akathisia same as RLS. She thinks vraylar may be more agitating than helping. So decided to stop and monitor sense of restlessness. discussed that due to ongoing cocaine use propanolol may increase CVA risk, and that benzo are limited use due to risk of misuse and abuse as pt continues to work on recovery. Review of Systems Review of Systems Constitutional : No Weight loss, No Fever, No Chills, No Night Sweats, No Fatigue, No Malaise ENT/Mouth : No Hearing loss, No Ear Pain, No Nasal Congestion, No Sinus Pain, No Hoarseness, No sore throat, No Rhinorrhea, No Swallowing Difficulty Eyes: No Eye Pain, No Swelling, No Redness, No Foreign Body, No Discharge, No Vision Changes Cardiovascular : No Chest Pain, No SOB, No Dyspnea on Exertion, No Orthopnea, No Edema, No Palpitations Respiratory : No Cough, No Sputum, No Wheezing, No Smoke Exposure, No Dyspnea Gastrointestinal : No Nausea, No Vomiting, No Diarrhea, No Constipation, No abdominal Pain, No Hematochezia, No Melena Genitourinary : no irregular bleeding, No Dysuria, No Urinary Frequency, No Hematuria, No Urinary Incontinence, No Urgency, No Flank Pain, No Urinary Flow Changes, No Hesitancy Musculoskeletal : No joint pain, No Myalgias, No Joint Swelling Skin : No Skin Lesions, No rash Neuro : No Weakness, No Numbness, No Paresthesias, No Loss of Consciousness, No Dizziness, No Headache Psych : Complaining of anxiety and depression, suicide attempt, no HI Heme/Lymph: No Bruising, No Bleeding,No Lymphadenopathy Endocrine : No Polyuria, No Polydipsia, No Temperature Intolerance Constitutional: Reports as per HPI Eyes: Reports as per HPI Reports as per HPI Cardiovascular: Reports as per HPI Respiratory: Reports as per HPI Gastrointestinal: Reports as per HPI Musculoskeletal: Reports as per HPI Skin/Breast: Reports as per HPI Reports as per HPI Psychiatric: Reports as per HPI Endocrine: Reports as per HPI Hematologic/Lymphatic: Reports as per HPI Allergic/Immunologic: Reports as per HPI Mental Status Exam Mental Status Exam Narrative: Pt is alert and oriented; no PMA/PMR; patient is not in distress; combed hair and good hygiene; affect constricted, non-labile; adequate eye contact; Speech is regular rate, volume and prosody; no psychomotor retardation present; thought process is goal directed; Thought content is not delusional or paranoid; no SI/HI/AVH expressed. There is no evidence of perceptual disturbance. Patients insight and judgment are fair. Diagnostics Vital Signs (24Hr): Vital Signs - 24 hr 05/29/23 19:05 05/30/23 07:15 Temperature 98.0 F 97.3 F Pulse Rate 68 50 Respiratory Rate 16 16 Blood Pressure 94/55 L 97/52 L Pulse Oximetry 96 99 Oxygen Delivery Method Room Air Room Air BMI result Body Mass Index 22.4 Labs 05/21/23 02:48 05/21/23 02:48 Medications Medications Current Medications Acetaminophen (Acetaminophen 325 Mg Tablet) 650 mg PO Q6H PRN PRN Reason: Headache/Pain Mild Scale (1-3) Al Hydroxide/Mg Hydroxide (Magnesium Hydrox/Alum Hydrox 30 Ml Oral.Susp) 30 ml PO Q6H PRN PRN Reason: Heartburn/Nausea Clonazepam (Clonazepam 0.5 Mg Tablet) 0.25 mg PO BID PRN PRN Reason: Anxiety Last Admin: 05/30/23 09:15 Dose: 0.25 mg Clonazepam (Clonazepam 0.5 Mg Tablet) 0.75 mg PO BEDTIME PRN PRN Reason: anxiety Last Admin: 05/29/23 20:31 Dose: 0.75 mg Hydroxyzine HCl (Hydroxyzine Hcl 50 Mg Tablet) 50 mg PO Q6H PRN PRN Reason: Anxiety Last Admin: 05/30/23 10:58 Dose: 50 mg Magnesium Hydroxide (Milk Of Magnesia 30 Ml Oral.Susp) 30 ml PO DAILY PRN PRN Reason: Constipation Magnesium Oxide (Magnesium Oxide 400 Mg Tablet) 400 mg PO BEDTIME ALICIA Last Admin: 05/29/23 20:31 Dose: 400 mg Methadone HCl (Methadone Hcl 20 Mg/2 Ml Oral.Conc) 75 mg PO DAILY ALICIA Last Admin: 05/30/23 09:10 Dose: 75 mg Olanzapine (Olanzapine 2.5 Mg Tablet) 2.5 mg PO BID PRN PRN Reason: Anxiety Last Admin: 05/30/23 13:47 Dose: 2.5 mg Olanzapine (Olanzapine 10 Mg Tablet) 10 mg PO BEDTIME PRN PRN Reason: insomnia Last Admin: 05/29/23 20:31 Dose: 10 mg Sertraline HCl (Sertraline Hcl 100 Mg Tablet) 100 mg PO DAILY ALICIA Last Admin: 05/30/23 09:09 Dose: 100 mg Allergies Allergies Allergy/AdvReac Type Severity Reaction Status Date / Time trazodone [TRAZODONE] Allergy Severe SHORTNESS Verified 05/06/23 12:55 OF BREATH, GASPING FOR AIR , SOB aspirin [ASPIRIN] Allergy Unknown STOMACH Verified 05/06/23 12:55 UPSET, Nausea, nausa ciprofloxacin [Cipro] Allergy Unknown Rash Verified 05/06/23 12:55 promethazine [Phenergan] Allergy Unknown Hives Verified 05/06/23 12:55 Sulfa (Sulfonamide Allergy Unknown Unknown Verified 05/06/23 12:55 Antibiotics) Assessment & Plan Assessment & Plan (1) Major depression, recurrent: Status: Acute Code(s): F33.9 - Major depressive disorder, recurrent, unspecified (2) Prolonged QT interval: Status: Acute Code(s): R94.31 - Abnormal electrocardiogram [ECG] [EKG] Assessment and Plan: rechecked EKG on 05/29, Qtc has improved 451ms (3) Suicidal ideation: Status: Resolved Code(s): R45.851 - Suicidal ideations (4) PTSD (post-traumatic stress disorder): Status: Acute Code(s): F43.10 - Post-traumatic stress disorder, unspecified (5) Polysubstance (including opioids) dependence with physiol dependence: Status: Acute Code(s): F19.20 - Other psychoactive substance dependence, uncomplicated Plan do not restart baclofen as pt recently overdosed on it. begin to taper klonopin as well due to concern with co-prescription with methadone and tendency to overdose. increase zoloft to 75 per pt request. otherwise continue discharge medications for now. 05/22 continue same treatment. 05/23 PRN Vistaril increased up to 50 mg, rest the same. 05/24: Calm, social with peers, attending groups. Pt reports her anxiety and depression are both high ; pt stated, I'm thinking about going to the [facility] . She reports suicidal ideation with no plan. denies HI/VH/AH. sleeping well. Continue current tx plan. 05/25: Continue current tx plan. 05/26: continue current mgmt. declining [facility], asking for DC to respite. 05/27: increase zoloft to 100 mg daily as of tomorrow. nightmares persist, otherwise generally stable. awaiting word from respite. 05/28: adding zyprexa 10 mg QHS PRN insomnia due to recent nightmares. otherwise continue current mgmt, respite bed expected early/mid next week. 05/29 added magnesium 400mg po qhs with hope that with some degree of suspect RLS may help with sleep. monitor ortho HOTn, which she has and limit meds alpha adrenergic properties like olanzapine or clonidine or prazosin. 05/30 d/c vraylar as it may be causing akathisia. Reason for continued inpatient stay Substantial Risk for: inability to function Time Spent With Patient Time: Total time managing care of this patient today ____ minutes.
[2023-05-30 19:05] VITALS: BP 117/59; PULSE 60; RESP 16; TEMP 36.3; O2SAT 97
[2023-05-30] MEDS: clonazePAM 0.5 MG TABLET 0.75 MG PO (20:42)
[2023-05-30] MEDS: Magnesium Oxide 400 MG TABLET PO (20:43)
[2023-05-30] MEDS: OLANZapine 10 MG TABLET PO (20:43)
[2023-05-31 07:15] VITALS: BP 102/57; PULSE 50; RESP 16; TEMP 36.6; O2SAT 97
[2023-05-31] MEDS: Sertraline HCL 100 MG TABLET PO (08:15)
[2023-05-31] MEDS: methADONE HCl 20 MG/2 ML ORAL.CONC 75 MG PO (08:16)
[2023-05-31] MEDS: Acetaminophen 325 MG TABLET 650 MG PO (10:58)
[2023-05-31] MEDS: hydrOXYzine HCL 50 MG TABLET PO (10:59)
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
[2023-05-31 11:38] LABS: COVID-19 Test Negative (Negative); IDNOW Serial# 152EDE1D
[2023-05-31] MEDS: clonazePAM 0.5 MG TABLET 0.25 MG PO (12:53)
[2023-05-31] MEDS: OLANZapine 2.5 MG TABLET PO (16:22)
[2023-05-31 20:00] VITALS: BP 123/62; PULSE 58; RESP 16; TEMP 36.3; O2SAT 97
[2023-05-31] MEDS: clonazePAM 0.5 MG TABLET 0.75 MG PO (20:38)
[2023-05-31] MEDS: Magnesium Oxide 400 MG TABLET PO (20:38)
[2023-05-31] MEDS: OLANZapine 10 MG TABLET PO (20:39)
[2023-06-01] MEDS: methADONE HCl 20 MG/2 ML ORAL.CONC 75 MG PO (08:06)
[2023-06-01] MEDS: Sertraline HCL 100 MG TABLET PO (08:06)
[2023-06-01] MEDS: clonazePAM 0.5 MG TABLET 0.25 MG PO (08:42)
[2023-06-01 09:32] VITALS: BP 109/67; PULSE 65; RESP 16; TEMP 36.7; O2SAT 97
[2023-06-01] MEDS: OLANZapine 2.5 MG TABLET PO (09:59)
== END 2023-06-01 10:54 | DRG 751 ==
LOC: HO.ED 05-21 08:02 → HO.PADLT16 05-21 11:28
PROVIDERS: Emergency Medicine; Admitting Provider Psychiatry & Neurology Psychiatry; Emergency Provider Emergency Medicine; Visit Provider Psychiatry & Neurology Psychiatry
DX: F33.9 Major depressive disorder, recurrent, unspecified (principal); R45.851 Suicidal ideations; F11.20 Opioid dependence, uncomplicated; F19.20 Other psychoactive substance dependence, uncomplicated; F43.10 Post-traumatic stress disorder, unspecified; R94.31 Abnormal electrocardiogram [ECG] [EKG]; F14.20 Cocaine dependence, uncomplicated; Z20.822 Contact with and (suspected) exposure to COVID-19; Z87.891 Personal history of nicotine dependence; Z79.899 Other long term (current) drug therapy
CPT/HCPCS: 36415; 80048; 80076; 80143; 80179; 80307; 81001; 83735; 84484; 84702; 85025; 87635; 93005; 99285; S9485

== ENCOUNTER → 2023-05-21 02:26 | Outpatient (BNV) | payer OTHER, SELFPAY | PROVIDERS: Emergency Provider Emergency Medicine; Visit Provider Internal Medicine Cardiovascular Disease | DX: I45.81 Long QT syndrome (principal) | CPT/HCPCS: 93010 ==

== ENCOUNTER 2023-05-21 11:12 | Outpatient (BNV) | payer OTHER, SELFPAY | END 2023-05-29 12:51 | PROVIDERS: Admitting Provider Psychiatry & Neurology Psychiatry; Emergency Provider Emergency Medicine; Visit Provider Internal Medicine | DX: R00.1 Bradycardia, unspecified (principal) | CPT/HCPCS: 93010 ==

== ENCOUNTER → 2023-05-21 11:12 | Outpatient (BNV) | payer OTHER, SELFPAY | PROVIDERS: Admitting Provider Psychiatry & Neurology Psychiatry; Emergency Provider Emergency Medicine; Visit Provider Psychiatry & Neurology Psychiatry | DX: F33.2 Major depressive disorder, recurrent severe without psychotic features (principal); R45.851 Suicidal ideations; F43.11 Post-traumatic stress disorder, acute; R94.31 Abnormal electrocardiogram [ECG] [EKG]; F19.20 Other psychoactive substance dependence, uncomplicated | CPT/HCPCS: 90792; 99231; 99232; 99239 ==

== ENCOUNTER 2023-06-11 10:36 | Emergency (ER) | payer OTHER, SELFPAY ==
[2023-06-11] VITALS (7 sets, daily range): BP systolic 80–159; BP diastolic 53–83; PULSE 60–75; RESP 14–20; TEMP 36.2–37.1; O2SAT 92–98; BMI 25.0
--- NOTE | 2023-06-11 | ECG_ITS ---
Test Reason : OVERDOSE Blood Pressure : / mmHG Vent. Rate : 072 BPM Atrial Rate : 072 BPM P-R Int : 158 ms QRS Dur : 074 ms QT Int : 460 ms P-R-T Axes : -14 022 052 degrees QTc Int : 503 ms Normal sinus rhythm Nonspecific T wave abnormality Prolonged QT Abnormal ECG When compared with ECG of 11-JUN-2023 16:20, No significant change was found Referred By: Trip Mao Electronically Signed By:CHADWICK CARIAS MD
--- NOTE | 2023-06-11 | ECG_ITS ---
Test Reason : OD Blood Pressure : / mmHG Vent. Rate : 067 BPM Atrial Rate : 067 BPM P-R Int : 148 ms QRS Dur : 078 ms QT Int : 488 ms P-R-T Axes : 036 056 065 degrees QTc Int : 515 ms Normal sinus rhythm Prolonged QT Abnormal ECG When compared with ECG of 11-JUN-2023 10:59, No significant change was found Referred By: Chelsea Mendez Electronically Signed By:CHADWICK CARIAS MD
--- NOTE | 2023-06-11 10:56 | ECG_ITS ---
Test Reason : overdose Blood Pressure : / mmHG Vent. Rate : 056 BPM Atrial Rate : 056 BPM P-R Int : 146 ms QRS Dur : 080 ms QT Int : 546 ms P-R-T Axes : -12 035 045 degrees QTc Int : 526 ms Poor data quality Possible Sinus bradycardia with sinus arrhythmia Prolonged QT Abnormal ECG When compared with ECG of 29-MAY-2023 12:51, QT has lengthened Referred By: Chelsea Mendez Electronically Signed By:CHADWICK CARIAS MD
--- NOTE | 2023-06-11 11:06 | MHC.EDTECH ---
POC 75 RN aware (promise)
[2023-06-11 11:08] LABS: Glucose, Whole Blood 75 mg/dL (60-115)
--- NOTE | 2023-06-11 11:08 | ED.OVERDOSE ---
HPI - Overdose General Chief Complaint: Psychiatric Symptoms Stated Complaint: SI DEPRESSION History of Present Illness HPI Narrative: Patient is a 53-year-old female with a history of anxiety depression baseline is on Zyprexa 2.5 mg q.d.. Patient also taking baclofen 10 mg. Today wanting to kill herself elected to take approximately 10 tablets of the Zyprexa 2.5 mg. Also took baclofen 10 mg approximately 10 tablets. Patient took it at approximately 10:00 about an hour prior to arrival. Patient denies any nausea vomiting. No chest pain or shortness breath no dizziness. Denies drinking alcohol. She did to kill herself. She has suicidal thoughts in the past. Patient denies using any recreational drugs. She is from home. Related Data Home Medications Medication Instructions Recorded Confirmed methadone 10 mg/mL oral 75 mg PO DAILY 05/21/23 05/21/23 concentrate (Methadose) Previous Rx's Medication Instructions Recorded magnesium oxide 400 mg (241.3 mg 400 mg PO BEDTIME 30 days #30 tabs 05/31/23 magnesium) tablet olanzapine 10 mg tablet 10 mg PO BEDTIME PRN insomnia 30 05/31/23 days #30 tabs olanzapine 2.5 mg tablet 2.5 mg PO BID PRN Anxiety 30 days 05/31/23 #60 tabs sertraline 100 mg tablet 100 mg PO DAILY 30 days #30 tabs 05/31/23 clonazepam 0.5 mg tablet (Klonopin) 0.25 mg (1/2 x 0.5 mg) PO BID PRN 06/02/23 anxiety and insomnia 14 days #35 tabs Allergies Allergy/AdvReac Type Severity Reaction Status Date / Time trazodone [TRAZODONE] Allergy Severe SHORTNESS Verified 06/11/23 11:23 OF BREATH, GASPING FOR AIR , SOB aspirin [ASPIRIN] Allergy Unknown STOMACH Verified 06/11/23 11:23 UPSET, Nausea, nausa ciprofloxacin [Cipro] Allergy Unknown Rash Verified 06/11/23 11:23 promethazine [Phenergan] Allergy Unknown Hives Verified 06/11/23 11:23 Sulfa (Sulfonamide Allergy Unknown Unknown Verified 06/11/23 11:23 Antibiotics) Review of Systems Review of Systems: No fever no chills no chest pain or shortness breath no nausea no vomiting Yes all other systems are reviewed and are negative [facility] Past Medical History Attestation statement: The following information was validated with the patient. 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 Tobacco Use Status: Former Tobacco user Tobacco use type: Cigarette Cigarette Packs Per Day: 0.5 Cigarettes Per Day: 3 Years Smoked: 40 years Smoked in Last 30 Days: Yes e-Cigarette/Vaping Use: Never Used Second Hand Smoke Exposure: Yes Use of substances other than those prescribed or required for medical reasons: No Substance Use Type: Crack/Cocaine and Prescription Drugs Substance Use Type Other:: Baclofen/Olanzapine Last Used Substance: Hours (ago) Any prior treatment program specific to substance use: Yes Advance Directives: No Advance Directives Date on File: 09/20/20 Patient : No service: No Current occupational status: disabled Sexual orientation: Straight/Heterosexual Physical Exam Vital Signs: Vital Signs: Last Vital Signs Temp 97.1 F 06/11/23 13:31 Pulse 71 06/11/23 13:31 Resp 16 06/11/23 13:31 BP 159/83 H 06/11/23 13:45 Pulse Ox 98 06/11/23 13:31 O2 Del Method Room Air 06/11/23 13:31 BMI result Body Mass Index 25.0 Appearance: Alert. Oriented X3. No acute distress. Eyes: Pupils equal, round and reactive to light. ENT: Pharynx normal. Neck: Normal inspection. Neck supple. No lymph nodes noted. No crepitus CVS: Normal heart rate and rhythm. Pulses normal. Normal S1 and S2 Respiratory: No respiratory distress. Breath sounds normal. No Wheezing. No rales Abdomen: Soft and nontender. No rigidity. No distention. good BS x4 Skin: Skin warm and dry. Normal skin color. Normal skin turgor. Extremities: No lower extremity edema. Neurovascular intact to all extremities. No Lacerations. No Rash Neuro: Oriented X 3. No motor deficit. No sensory deficit. Moving all extermities. No slurred speech Medications Administered Generic Name Dose Route Start Last Admin Trade Name Freq PRN Reason Stop Dose Admin Sodium Chloride 1,000 mls @ 999 mls/hr 06/11/23 15:15 06/11/23 15:21 Ns IV 06/11/23 16:15 999 mls/hr .Q1H1M ALICIA Administration Discontinued Medications Generic Name Dose Route Start Last Admin Trade Name Freq PRN Reason Stop Dose Admin Sodium Chloride 1,000 mls @ 999 mls/hr 06/11/23 11:15 06/11/23 13:40 Ns IV 06/11/23 12:15 Infused .Q1H1M ALICIA Infusion Potassium Chloride 40 meq 06/11/23 14:38 06/11/23 16:05 Potassium Chloride Packet 20 Meq Packet PO 06/11/23 14:39 40 meq ONCE ONE Administration Medical Decision Making Medical Decision Making MDM Narrative: Took an overdose of olanzapine approximately 2.5 mg x 10 tablets. Also took 10 mg of baclofen times 10 tablets. My interpretation patient's EKG showed a sinus rhythm heart rate is 60 NC QRS is normal. QTC is prolonged at 526 group will need close monitoring. Poison control to be contacted. Patient is started on fluids. Aspirin Tylenol alcohol tox screen ordered. Baseline labs ordered. Will monitor carefully. Sitter ordered as patient is suicidal. Procedure note at around 12 noon I put an 18 gauge external jugular catheter on the right side. There is good flow. Patient in no distress. Sterile technique was followed 13:50 Patient monitored. 2 L of IV fluids given. In no acute distress. Aspirin Tylenol levels were negative. A 2nd EKG was done. It showed a sinus rhythm heart rate is 80 NC QRS is normal QTC is still 510. Continue being monitored. In no distress. Discussed with poison control. Will continue to monitor until approximately 19:00 tonight 16:00 Patient is still awaiting crisis evaluation 16:00 Her hemoglobin is 12.6 no evidence of anemia. Patient's electrolytes showed an elevated BUN and creatinine consistent with dehydration patient's LFTs are normal test is negative aspirin Tylenol levels are negative. COVID test is negative. Differential Diagnosis Differential Diagnoses: The differential diagnosis associated with the presentation includes Toxic effect of baclofen, Zyprexa, alcohol, recreational drugs Admission/Observation Consideration of admission/observation: Escalation of care including admission/observation considered Consult Healthcare Provider Management of the patient was discussed with: Record Cutter (Poison control) Lab Data [facility] Lab Attestation statement: I reviewed the patient's lab results. 06/11/23 13:07 06/11/23 13:07 Labs: Lab Results 06/11/23 06/11/23 06/11/23 Range/Units 11:05 11:39 13:07 WBC 8.2 (4.8-10.8) X10*3/uL RBC 4.14 L (4.20-5.50) X10*6/uL Hgb 12.6 (12.0-16.0) g/dl Hct 37.3 (37.0-47.0) % MCV 90.1 (80.0-98.0) fL MCH 30.4 (27.0-33.0) pg MCHC 33.8 (31.0-35.0) g/dl RDW 14.6 (11.0-16.0) % Plt Count 244 (160-400) X10*3/uL MPV 11.4 (9.4-12.3) fL Immature Gran % (Auto) 0.1 (0.0-0.4) % Neut % (Auto) 65.0 (45-73) % Lymph % (Auto) 19.5 L (20-40) % [place]quois % (Auto) 11.7 H (2-11) % Eos % (Auto) 3.5 (0-4) % Baso % (Auto) 0.2 (0-2) % Lymph # (Auto) 1.6 (1.2-4.9) X10*3/uL [place] # (Auto) 1.0 (0.1-1.2) X10*3/uL Eos # (Auto) 0.3 (0.0-0.4) X10*3/uL Baso # (Auto) 0.0 (0.0-0.2) X10*3/uL Abs Immat Gran (auto) 0.01 (0.00-0.03) X10*3/uL Absolute Neuts (auto) 5.3 (2.0-8.3) x10*3/uL Absolute Nucleated RBC 0.000 (0.0-0.012) X10*3/uL Nucleated RBC % (auto) 0.0 (0.0-0.2) /100WBC Sodium 139 (135-145) mmol/L Potassium 3.4 (3.3-5.1) mmol/L Chloride 104 (96-108) mmol/L Carbon Dioxide 25 (22-29) mmol/L Anion Gap 13 (12-20) BUN 41 H (9-16) mg/dL Creatinine 0.87 (0.5-1.4) mg/dL Estim Creat Clear Calc 67.3 Estimated GFR > 60 POC Glucose 75 (60-115) mg/dL Random Glucose 73 (60-115) mg/dL Calcium 9.6 (8.4-10.2) mg/dL Magnesium 2.6 (1.6-2.6) mg/dL Total Bilirubin 0.6 (0.0-1.0) mg/dL Direct Bilirubin 0.2 (0.0-0.5) mg/dL AST 31 (5-31) U/L ALT 24 (0-31) U/L Alkaline Phosphatase 91 (39-117) U/L Total Protein 7.7 (6.5-8.0) g/dL Albumin 4.3 (3.5-5.0) g/dL Beta HCG, Quant < 2 mIU/mL Hold Red Top See Note Salicylates < 5.0 L (15-30) mg/dL Acetaminophen < 3 (<30) mcg/mL Ethyl Alcohol < 10 mg/dL COVID-19 (SAMANTHA) Negative (Negative) COVID-19 Clin Com See Note Critical Care Time Critical Care Time Critical Care Time: Yes Total Critical Care Time: 40 Attestation: I have personally provided 40 minutes of critical care time exclusive of time spent on separately billable procedures. ?Time includes review of lab data, radiology results, discussion with consultants, and monitoring for potential decompensation. ?Interventions were performed as documented above Discharge Plan Discharge Clinical Impression: Intentional olanzapine overdose Patient Disposition: Still a Patient Prescriptions: No Action methadone [Methadose] 10 mg/mL concentrate 75 mg PO DAILY Rx Instructions: Please see nursing note from 05/21 for last dose information sertraline 100 mg Tablet 100 mg PO DAILY 30 Days Qty: 30 0RF olanzapine 10 mg Tablet 10 mg PO BEDTIME PRN (Reason: insomnia) 30 Days Qty: 30 0RF olanzapine 2.5 mg Tablet 2.5 mg PO BID PRN (Reason: Anxiety) 30 Days Qty: 60 0RF magnesium oxide 400 mg (241.3 mg magnesium) Tablet 400 mg PO BEDTIME 30 Days Qty: 30 0RF clonazepam [Klonopin] 0.5 mg tablet 0.25 mg PO BID PRN (Reason: anxiety and insomnia) 14 Days Qty: 35 0RF Rx Instructions: take one half (0.5) tablet twice daily as needed for anxiety and one and one half (1.5) tablets at bedtime as needed for insomnia Interventions: [place]-Suicide Risk Severity Scale Last Done: 06/11/23 11:22
--- NOTE | 2023-06-11 11:37 | PC.NURSE ---
Pt a+o x3, she denies pain. Pt reports taking TEN of her prescription Balofen 10 mg tablets and TWENTY of her Olanzapine 2.5 mg tablets at around 1000 this morning. She states she took them in attempt to end her life. Pt reports losing everything and has nothing left and no where to live. She currently stays with a friend, she reports that she called the ambulance immediately after taking her pills. She Denies etoh or substance use today. Reports snorting crack yesterday. Pt placed on monitor, 1:1 staff is at her bedside. Pt changed into [place] [facility], belongings secured by security and placed into [facility] ROOM. Pt resting quietly, no apparent distress. No other complaints at this time. Will continue to observe.
[2023-06-11 12:07] LABS: COVID-19 Test Negative (Negative); IDNOW Serial# 9DB6401D
--- NOTE | 2023-06-11 12:12 | PC.NURSE ---
1155: Spoke with Anju from Poison Control ([phone]). Repeat EKG in 2 hrs, draw LFTs, Ethanol and Tylenol levels, monitor b/p. Give iv Mg if less than 2. Give iv K if less than 4. Pt may need to be observed for 8-12 hrs. Will continue to observe and reassess. Pt sleeping at this time. 1:1 staff at her bedside.
[2023-06-11] MEDS: 0.9 % Sodium Chloride 1,000 ML 999 ML IV ×2 (12:39→15:21)
[2023-06-11 13:13] LABS: MANUAL DIFF FLAG NO
[2023-06-11 13:20] LABS: Basophils Percent Auto 0.2 % (0-2); Eosinophils Absolute Auto 0.3 X10*3/uL (0.0-0.4); Eosinophils Percent Auto 3.5 % (0-4); Hematocrit 37.3 % (37.0-47.0); Hemoglobin 12.6 g/dl (12.0-16.0); Imm Gran Abs Auto 0.01 X10*3/uL (0.00-0.03); Imm Gran Pct Auto 0.1 % (0.0-0.4); Lymphocytes Absolute Auto 1.6 X10*3/uL (1.2-4.9); Lymphocytes Percent Auto 19.5 % (20-40); Mean Corpuscular HGB Conc 33.8 g/dl (31.0-35.0); Mean Corpuscular Hemoglobin 30.4 pg (27.0-33.0); Mean Corpuscular Volume 90.1 fL (80.0-98.0); Mean Platelet Volume 11.4 fL (9.4-12.3); Monocytes Percent Auto 11.7 % (2-11); Neutrophils Absolute Auto 5.3 x10*3/uL (2.0-8.3); Platelet Count 244 X10*3/uL (160-400); Red Blood Count 4.14 X10*6/uL (4.20-5.50); Red Cell Distribution Width 14.6 % (11.0-16.0); White Blood Count 8.2 X10*3/uL (4.8-10.8)
[2023-06-11 13:39] LABS: Alanine Aminotransferase 24 U/L (0-31); Albumin Level 4.3 g/dL (3.5-5.0); Alkaline Phosphatase 91 U/L (39-117); Anion Gap 13 (12-20); Aspartate Amino Transferase 31 U/L (5-31); Bilirubin Direct 0.2 mg/dL (0.0-0.5); Bilirubin Total 0.6 mg/dL (0.0-1.0); Blood Urea Nitrogen 41 mg/dL (9-16); Calcium 9.6 mg/dL (8.4-10.2); Carbon Dioxide 25 mmol/L (22-29); Chloride 104 mmol/L (96-108); Creatinine Clr Calc Pharmacy 67.3; Estimated Glomerular Filt Rate > 60; Ethanol < 10 mg/dL; Glucose Random 73 mg/dL (60-115); Potassium 3.4 mmol/L (3.3-5.1); Sodium 139 mmol/L (135-145); Total Protein 7.7 g/dL (6.5-8.0)
[2023-06-11 13:40] LABS: Acetaminophen LAB < 3 mcg/mL (<30); Salicylate < 5.0 mg/dL (15-30)
[2023-06-11 13:44] LABS: HCG Quantitative < 2 mIU/mL
--- NOTE | 2023-06-11 13:45 | MHC.EDTECH ---
repeat EKG for poison contorl. RN aware
--- NOTE | 2023-06-11 13:48 | PC.NURSE ---
20g inserted R EJ by Dr. Tran. Fluid started late d/t pt being a difficult stick. Labs were drawn by insurance adviser. Repeat ekg done. Pt sleeping at this time. vss. 1:1 staff remains at bedside. Will continue to observe.
--- NOTE | 2023-06-11 14:36 | PC.NURSE ---
Poison control recommends replacing potassium until it is above 4.0. MD aware
[2023-06-11 15:04] LABS: Magnesium 2.6 mg/dL (1.6-2.6)
--- NOTE | 2023-06-11 15:18 | ECG_ITS ---
Test Reason : OD Blood Pressure : / mmHG Vent. Rate : 063 BPM Atrial Rate : 063 BPM P-R Int : 156 ms QRS Dur : 080 ms QT Int : 530 ms P-R-T Axes : -08 025 050 degrees QTc Int : 542 ms Normal sinus rhythm Prolonged QT Abnormal ECG When compared with ECG of 11-JUN-2023 13:42, No significant change was found Referred By: Trip Mao Electronically Signed By:CHADWICK CARIAS MD
[2023-06-11] MEDS: Potassium Chloride Packet 20 MEQ PACKET 40 MEQ PO (16:05)
--- NOTE | 2023-06-11 17:01 | PC.NURSE ---
Anju from Poison Control called for update. Recommends repeat ekg, continue monitoring vs. She will call back in about an hour for update. Will continue to monitor. Pt a+o x3, denies pain, she denies si/hi at this time. Pt up to use bedside commode. Juice and snack given, tolerated well. 1:1 staff remains at the her bedside.
[2023-06-11 18:46] LABS: Amphetamine Screen Urine Not Detected (Not Detect); Barbiturates, Urine Not Detected (Not Detect); Benzodiazepines Screen Urine Not Detected (Not Detect); Cannabinoid Screen Urine Not Detected (Not Detect); Cocaine Screen Urine POSITIVE (Not Detect); Fentanyl, urine Not Detected (Not Detect); Opiate Screen Urine Not Detected (Not Detect); Phencyclidine Screen Urine Not Detected (Not Detect)
--- NOTE | 2023-06-11 19:23 | PHA.MEDREC ---
Pharmacy Consult ? Medication Reconciliation Pharmacy has completed the medication reconciliation. Patient just discharged from the adult psych unit on 06/01/33. Utilized discharge summary for med rec. Ayana Mills, ArielD
--- NOTE | 2023-06-11 19:38 | PC.NURSE ---
this rn assumed care of pt. pt resting in stretcher at this time, no acute distress noted. aware of blood pressure, no new orders at this time. 1:1 sitter at bedside for pt safety, pt currently denying thoughts of si/hi.
--- NOTE | 2023-06-11 21:48 | PC.NURSE ---
Patrizia from poison control on phone, requesting update. update given of ekg and stated the repeat ekg time.
[2023-06-12] VITALS (7 sets, daily range): BP systolic 91–129; BP diastolic 47–68; PULSE 60–82; RESP 12–23; TEMP 36.7–36.9; O2SAT 93–99
--- NOTE | 2023-06-12 00:05 | ECG_ITS ---
Test Reason : OVERDOSE Blood Pressure : / mmHG Vent. Rate : 072 BPM Atrial Rate : 072 BPM P-R Int : 154 ms QRS Dur : 080 ms QT Int : 482 ms P-R-T Axes : 051 013 059 degrees QTc Int : 527 ms Normal sinus rhythm Nonspecific T wave abnormality Prolonged QT Abnormal ECG When compared with ECG of 11-JUN-2023 20:23, No significant change was found Referred By: Trip Mao Electronically Signed By:CHADWICK CARIAS MD
[2023-06-12] MEDS: Lidocaine 4 % Patch ADH..PATCH 1 PATCH TRANSDERMA (03:56)
[2023-06-12] MEDS: Acetaminophen 325 MG TABLET 650 MG PO (03:56)
--- NOTE | 2023-06-12 07:21 | HE.PHANOTE ---
RE METHADONE PT DOSED BY [facility]. DOSE OF 75MG LAST GIVEN 06/10 @0811 ANURAG
[2023-06-12] MEDS: 0.9 % Sodium Chloride 1,000 ML 999 ML IV (07:44)
[2023-06-12] MEDS: Magnesium Sulfate/H2O 2 GM/50 ML PIGGYBACK IV (07:45)
--- NOTE | 2023-06-12 08:00 | ECG_ITS ---
Test Reason : EVALUATE QTC, OD Blood Pressure : / mmHG Vent. Rate : 076 BPM Atrial Rate : 076 BPM P-R Int : 154 ms QRS Dur : 084 ms QT Int : 452 ms P-R-T Axes : 048 019 053 degrees QTc Int : 508 ms Normal sinus rhythm Prolonged QT Abnormal ECG When compared with ECG of 12-JUN-2023 00:33, No significant change was found Referred By: Trip Mao Electronically Signed By:CHADWICK CARIAS MD
--- NOTE | 2023-06-12 08:42 | ECG_ITS ---
Test Reason : PROLONGED QT Blood Pressure : / mmHG Vent. Rate : 071 BPM Atrial Rate : 071 BPM P-R Int : 160 ms QRS Dur : 086 ms QT Int : 470 ms P-R-T Axes : 044 015 041 degrees QTc Int : 510 ms Normal sinus rhythm with sinus arrhythmia Prolonged QT Abnormal ECG When compared with ECG of 12-JUN-2023 08:49, No significant change was found Referred By: Trip Mao Electronically Signed By:CHADWICK CARIAS MD
[2023-06-12] MEDS: Potassium Chloride ER 20 MEQ TAB.ER.PRT 60 MEQ PO (10:52)
[2023-06-12] MEDS: Potassium Chloride/H20 10 MEQ/100 ML PIGGYBACK 100 MEQ IV (10:52)
--- NOTE | 2023-06-12 12:18 | ECG_ITS ---
Test Reason : OD, PROLONGED QT Blood Pressure : / mmHG Vent. Rate : 065 BPM Atrial Rate : 065 BPM P-R Int : 140 ms QRS Dur : 086 ms QT Int : 500 ms P-R-T Axes : -03 013 040 degrees QTc Int : 520 ms Normal sinus rhythm Prolonged QT Abnormal ECG When compared with ECG of 12-JUN-2023 08:01, No significant change was found Referred By: Trip Mao Electronically Signed By:CHADWICK CARIAS MD
[2023-06-12 13:27] LABS: Anion Gap 12 (12-20); Blood Urea Nitrogen 20 mg/dL (9-16); Calcium 9.1 mg/dL (8.4-10.2); Carbon Dioxide 21 mmol/L (22-29); Chloride 112 mmol/L (96-108); Estimated Glomerular Filt Rate > 60; Glucose Random 108 mg/dL (60-115); Potassium 5.2 mmol/L (3.3-5.1); Sodium 140 mmol/L (135-145)
--- NOTE | 2023-06-12 13:49 | PC.NURSE ---
Poison control called asking about the EKG done this morning for the QT C which i reported.
[2023-06-12] MEDS: oxyCODONE HCl Immed Release 5 MG TABLET 10 MG PO ×2 (15:06→21:31)
--- NOTE | 2023-06-12 15:52 | MHC.RECOVRN ---
Met with pt in [facility] after pt presented to ED after intentional overdose. Pt awaiting CARE Team. Pt currently on methadone, 75 mg daily, has prolonged qtc and cardiology advising against methadone administration. Pt sitting in bed, awake, alert, easily engages in conversation, appears uncomfortable. Pt reports current withdrawal symptoms including rhinorrhea, dilated pupils, restlessness, body aches. Pt reports recently decreasing from 80 mg due to prolonged qtc. Pt reports having a prolonged qtc for quite some time and OTP is aware. Pt reports that when she is in the hospital she typically has split dose methadone. Pt would like medication to address withdrawal symptoms. Discussed with Anali Valdez APRN, recommendation oxycodone q6 hours prn. Pt, provider, and RN aware.
--- NOTE | 2023-06-12 18:28 | PC.NURSE ---
Kelley was transferred to the POD from the main ED. She is reporting feeling frustrated d/t not being able to take her methadone. Kelley reporting she is having anxiety and observed pacing. Kelley understands her QT interval is prolonged but she reports this has been a problem for a long time . Appetite good. No behavioral concerns.
--- NOTE | 2023-06-12 19:19 | PC.NURSE ---
patient appears to remain at rest at present respirations are even and unlabored patient appears in no distress.
[2023-06-12] MEDS: Loperamide HCl 2 MG CAPSULE PO (22:05)
[2023-06-12] MEDS: Acetaminophen 325 MG TABLET 975 MG PO (22:06)
[2023-06-12] MEDS: diphenhydrAMINE HCL 25 MG CAPSULE 50 MG PO (22:42)
[2023-06-13] MEDS: LORazepam 1 MG TABLET PO (01:54)
[2023-06-13] MEDS: oxyCODONE HCl Immed Release 5 MG TABLET 10 MG PO ×4 (03:25→22:16)
[2023-06-13] MEDS: clonazePAM 0.5 MG TABLET 0.25 MG PO ×3 (09:30→20:01)
--- NOTE | 2023-06-13 10:20 | MHC.RECOVRN ---
Chart reviewed and spoke to pts RN. Pt doing well with oxycodone. Pts most recent qtc 520. Discussed with Anali Valdez APRN, plan to follow up with OTP provider tomorrow morning to discuss plan ie methadone.
[2023-06-13 12:15] LABS: Appearance Urine Clear; Color Urine Yellow; Glucose Urine UA Negative (Negative); Leukocyte Esterase Urine Negative (Negative); Nitrite Urine Negative (Negative); PH 7.5 (5.0-9.0); Specific Gravity - Urine <= 1.005 (1.005-1.025); Urine Blood Negative (Negative); Urine Ketones Negative (Negative); Urine Protein Negative (Neg-Trace)
[2023-06-13 12:18] LABS: Bacteria Urine Trace (None Seen); Hyaline Casts Urine 0-2 /LPF (0-2); RBC Urine 0-2 /HPF (0-2); WBC Urine 0-5 /HPF (0-5)
[2023-06-13] MEDS: Acetaminophen 325 MG TABLET 975 MG PO (14:18)
[2023-06-13 14:34] VITALS: RESP 18
--- NOTE | 2023-06-13 15:22 | MHC.CARE ---
Pt was accepted to [facility] for 06/14/23 ETA 10am. Accepting is Dr salazar Alvarez. Unit will be decided in the morning. [facility] nurse will call in the morning for N2N
[2023-06-13] MEDS: oxyCODONE HCl Immed Release 5 MG TABLET PO (15:37)
--- NOTE | 2023-06-13 16:08 | MHC.RECOVRN ---
Met with pt after RN informed t/w pt was experiencing worsening opioid withdrawal. Pt sitting in common area, appears anxious. Pt reports loose stool, restlessness, stomach cramps, pupils are dilated. Pt requesting additional medication to manage withdrawal. Discussed with Anali Valdez APRN, as well as ED provider. Plan to administer 5 mg additional oxycodone.
--- NOTE | 2023-06-13 16:55 | PC.NURSE ---
Kelley observed in milieu and pacing this shift. Verbalizing withdrawal symptoms and requesting her methadone back. Recovery contacted. Medications given per JUL. Kelley stated she is frustrated and doesn't understand why her methadone is being withheld for a QT interval when that has been a issue she has experienced previously. no behavioral concerns. Appetite good. No nausea and vomiting.
[2023-06-13] MEDS: clonazePAM 0.5 MG TABLET 0.75 MG PO (20:56)
[2023-06-13 21:56] VITALS: BP 147/103; PULSE 81; RESP 17; TEMP 36.9; O2SAT 96
[2023-06-13 22:45] VITALS: BP 147/97
[2023-06-14] MEDS: oxyCODONE HCl Immed Release 5 MG TABLET 10 MG PO (04:16)
[2023-06-14 05:08] VITALS: BP 124/88; PULSE 77; RESP 14; TEMP 36.9; O2SAT 97
[2023-06-14] MEDS: LORazepam 1 MG TABLET PO (05:27)
--- NOTE | 2023-06-14 05:31 | PC.NURSE ---
Pt requesting more medication stating anxiety is not getting any better. Pt has been up majority of the night. notified and medication administered per orders. .
--- NOTE | 2023-06-14 08:07 | PC.NURSE ---
BIANCA Fraga from [facility] called for report. The facility is expecting the pt at 1000. Pt aware of plan.
[2023-06-14] MEDS: clonazePAM 0.5 MG TABLET 0.25 MG PO (08:35)
--- NOTE | 2023-06-14 08:38 | PC.NURSE ---
Pt requested Clonidine for anxiety. Med given as documented, will reassess. Pt showered.
== END 2023-06-14 09:58 ==
PROVIDERS: Emergency Medicine Emergency Medical Services; Emergency Provider Emergency Medicine Emergency Medical Services; PCP Nurse Practitioner Family
DX: T43.592A Poisoning by other antipsychotics and neuroleptics, intentional self-harm, initial encounter (principal); Y92.9 Unspecified place or not applicable; F33.1 Major depressive disorder, recurrent, moderate; R45.851 Suicidal ideations; I49.8 Other specified cardiac arrhythmias; R94.31 Abnormal electrocardiogram [ECG] [EKG]; Z11.52 Encounter for screening for COVID-19; Z79.899 Other long term (current) drug therapy
CPT/HCPCS: 36415; 80048; 80076; 80143; 80179; 80307; 81001; 82947; 83735; 84702; 85025; 87635; 93005; 96361; 96365; 96367; 99285; J3475; J3480; S9485

== ENCOUNTER → 2023-06-11 10:56 | Outpatient (BNV) | payer OTHER, SELFPAY | PROVIDERS: Emergency Provider Emergency Medicine Emergency Medical Services; Visit Provider Internal Medicine Cardiovascular Disease | DX: I45.81 Long QT syndrome (principal) | CPT/HCPCS: 93010 ==

== ENCOUNTER → 2023-06-12 00:05 | Outpatient (BNV) | payer OTHER, SELFPAY | PROVIDERS: Emergency Provider Emergency Medicine Emergency Medical Services; Visit Provider Internal Medicine Cardiovascular Disease | DX: I45.81 Long QT syndrome (principal) | CPT/HCPCS: 93010 ==

== ENCOUNTER 2023-10-18 10:12 | Emergency (ER) | payer OTHER, SELFPAY ==
--- NOTE | ~2023-10-18 | XR_ITS ---
EXAMINATION: XR CHEST CLINICAL INFORMATION: Chest pain. COMPARISON: 07/19/2020 TECHNIQUE: 2 views of the chest were obtained. FINDINGS: There is no gross pneumothorax. Heart size is normal. Metallic structures with the appearance of likely snaps overlie the thorax. Mild dextroscoliosis of the thoracic spine with multilevel degenerative changes. Heart size is normal. No gross pleural effusion. Moderate increased bibasilar streaky opacities may represent atelectasis and/or an infectious/inflammatory process. XR/XR chest 2V IMPRESSION: Moderate increased bibasilar streaky opacities may represent atelectasis and/or an infectious/inflammatory process. This study was presented today October 18, 2023 for interpretation. Stat results provided at this time as requested by referring provider.
[2023-10-18 10:19] VITALS: BP 117/75; BP 124/76; PULSE 62; PULSE 78; RESP 16; TEMP 36.9; O2SAT 95; BMI 28.3
--- NOTE | 2023-10-18 10:28 | ECG_ITS ---
Test Reason : CHEST PAIN Blood Pressure : / mmHG Vent. Rate : 054 BPM Atrial Rate : 054 BPM P-R Int : 166 ms QRS Dur : 086 ms QT Int : 472 ms P-R-T Axes : 056 015 006 degrees QTc Int : 447 ms Sinus bradycardia Otherwise normal ECG When compared with ECG of 12-JUN-2023 12:26, Nonspecific T wave abnormality now evident in Inferior leads Nonspecific T wave abnormality now evident in Lateral leads QT has shortened Referred By: Generic ED Physician Electronically Signed By:JEN TAYLOR
--- NOTE | 2023-10-18 11:20 | ED_ITS ---
HPI - Chest Pain General Chief Complaint: Chest Pain Stated Complaint: CHEST DISCOMFORT,NAUSEA PER EMS Time Seen by Provider: 10/18/23 11:17 Source: patient and EMS Mode of arrival: EMS Limitations: no limitations History of Present Illness ED Provider: Alida Bassett PA-C HPI narrative: Patient is a 53 year old assigned female at with a history of cocaine abuse, opiate use, MDD, and PTSD presenting to the emergency department today with central chest pain, nausea, and vomiting. Patient states that over the last 2 days she has had nausea and chest pain with 2 episodes of vomiting this morning. Patient denies any dizziness, lightheadedness, abdominal pain, fever, chills, blurry vision, double vision, loss of vision, difficulty breathing, shortness of breath, back pain, night sweats, pain with urination, increased urinary frequency, increased urinary urgency, blood in her urine or stool, syncope or a near syncopal episode, recent trauma or falls, bowel incontinence, bladder incontinence, or any other complaints at this time. Relieving factors: nothing Exacerbating factors: nothing Associated symptoms: nausea and vomiting Treatment prior to arrival: none Risk Factors Coronary artery disease risk factors: cocaine use Related Data Home Medications ?Medication ?Instructions ?Recorded ?Confirmed methadone 10 mg/mL oral 75 mg PO DAILY 05/21/23 06/12/23 concentrate (Methadose) clonazepam 0.5 mg tablet 0.75 mg PO BEDTIME PRN Insomnia 06/11/23 06/11/23 clonazepam 0.5 mg tablet (Klonopin) 0.25 mg PO BID PRN Anxiety 06/11/23 06/11/23 Previous Rx's ?Medication ?Instructions ?Recorded magnesium oxide 400 mg (241.3 mg 400 mg PO BEDTIME 30 days #30 tabs 05/31/23 magnesium) tablet olanzapine 10 mg tablet 10 mg PO BEDTIME PRN insomnia 30 05/31/23 days #30 tabs olanzapine 2.5 mg tablet 2.5 mg PO BID PRN Anxiety 30 days 05/31/23 #60 tabs sertraline 100 mg tablet 100 mg PO DAILY 30 days #30 tabs 05/31/23 doxycycline hyclate 100 mg tablet 100 mg PO BID 7 days #14 tabs 10/18/23 Allergies Allergy/AdvReac Type Severity Reaction Status Date / Time trazodone [TRAZODONE] Allergy Severe SHORTNESS Verified 10/18/23 10:28 OF BREATH, GASPING FOR AIR , SOB aspirin [ASPIRIN] Allergy Unknown STOMACH Verified 10/18/23 10:28 UPSET, Nausea, nausa ciprofloxacin [Cipro] Allergy Unknown Rash Verified 10/18/23 10:28 promethazine [Phenergan] Allergy Unknown Hives Verified 10/18/23 10:28 Sulfa (Sulfonamide Allergy Unknown Unknown Verified 10/18/23 10:28 Antibiotics) Review of Systems 2 Constitutional: Constitutional: Reports no additional constitutional complaints, Denies chills, Denies fever(s) and Denies night sweats Eyes: Eyes: Reports no additional eye complaints, Denies blurry vision, Denies change in vision, Denies diplopia, Denies eye discharge, Denies loss of vision and Denies eye pain ENT: Denies dizziness Cardiovascular: Cardiovascular: Reports no additional cardiovascular complaints, Reports chest pain, Denies lightheadedness, Denies Loss of Consciousness and Denies dyspnea Respiratory: Respiratory: Reports no additional respiratory complaints and Denies dyspnea Gastrointestinal: Gastrointestinal: Reports no additional gastrointestinal complaints, Denies abdominal pain, Denies melena, Denies hematochezia, Denies change in bowel habits, Denies change in stool character, Reports nausea and Reports vomiting Genitourinary: Genitourinary: Denies hematuria, Denies urinary frequency, Denies dysuria, Denies urinary incontinence, Denies urinary hesitancy and Denies urinary urgency Musculoskeletal: Musculoskeletal: Reports no additional musculoskeletal complaints, Denies numbness and Denies tingling Neurologic: Denies dizziness, Denies loss of vision, Denies numbness and Denies tingling Psychiatric: Psychiatric: Reports no additional psychiatric complaints Endocrine: Endocrine: Reports no additional endocrine complaints Hematologic/Lymphatic: Hematologic/Lymphatic: Reports no additional hematologic/lymphatic complaints Allergic/Immunologic: Allergic/Immunologic: Reports no additional allergic/immunologic complaints PMFSH Past Medical History Attestation statement: The following information was validated with the patient. Source: old records reviewed and nursing notes reviewed 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 Tobacco Use Status: Former Tobacco user Tobacco use type: Cigarette Cigarette Packs Per Day: 0.5 Cigarettes Per Day: 3 Years Smoked: 40 years e-Cigarette/Vaping Use: Never Used Second Hand Smoke Exposure: Yes Substance Use Type: Crack/Cocaine and Prescription Drugs Advance Directives: No Advance Directives Information Provided: No Advance Directives Date on File: 09/20/20 service: No Current occupational status: disabled Sexual orientation: Straight/Heterosexual Physical Exam 2 Vital Signs: Vital Signs: Last Vital Signs Temp 98.9 F 10/18/23 14:41 Pulse 60 10/18/23 14:41 Resp 20 10/18/23 14:41 BP 114/76 10/18/23 14:41 Pulse Ox 94 10/18/23 14:41 O2 Del Method Room Air 10/18/23 14:41 BMI result Body Mass Index 28.3 Const: General: cooperative, no acute distress, alert and awake Nutritional Appearance: well nourished Orientation/consciousness: patient oriented x3 Limitations: no limitations HEENT: Head: Yes normal to inspection and Yes atraumatic Ears: hearing grossly normal bilaterally and external ears normal General nose exam: Normal external nose present, no nasal discharge noted and no epistaxis Face and sinus: Yes normal facial exam, No abrasion and No laceration Mouth: Normal oral and palatal mucosa present, no drooling and no muffled voice Eyes: General: appearance normal, both eyes and all related structures P eriorbital: periorbital findings normal Eyelids: Yes eyelids normal C onjunctivae: conjunctivae normal Pupils: Equal, round and reactive pupils present EOM: EOMs intact bilaterally Neck: Neck: Yes normal visual inspection, Yes full ROM and Yes no lymphadenopathy Chest: Chest palpation & inspection: normal inspection of the chest Resp: Effort & Inspection: normal respiratory effort and able to speak in complete sentences GI: Inspection: Yes normal to inspection Neuro: General: patient oriented x3 and moves all extremities Cranial nerves: Yes Equal, round and reactive pupils present Cognition (Neuro): n ormal cognition Motor exam (neuro): 5/5 motor strength present throughout Sensory Exam: Normal double simultaneous stimulation for sensation C oordination: [id number] test normal Extrem: General: Yes normal to inspection, Yes full ROM and Yes capillary refill normal Psych: Appearance: grossly normal Mental Status: mental status grossly normal Affect: normal affect Attitude: cooperative Thought process: N ormal thought process present Thought content: Normal thought content present Insight: Good insight present (Psych) Medical Decision Making Medical Decision Making [facility] Narrative: Patient is a 53 year old assigned female at with a history of cocaine use, opiate use, PTSD, and MDD presenting to the emergency department today with central chest pain, nausea, and vomiting. Patient's physical exam was unremarkable. Patient's blood work showed a minimal hyperkalemia of 5.2 which is chronic for the patient. Patient's urine showed no acute process. Patient's EKG was unremarkable. Patient's chest x-ray showed evidence of a possible pneumonia. Given the patient's symtpoms, will treat. I explained my physical exam findings as well as all test results to the patient. I answered all questions asked by the patient. I stressed the importance of the patient taking her medication as prescribed. I stressed the importance of the patient following up with her primary care provider. I stressed the importance of the patient returning to the emergency department immediately if her symptoms were to worsen or if she were to develop any dizziness, shortness of breath, difficulty breathing, chest pain, blurry vision, loss of vision, nausea, vomiting, abdominal pain, fever, chills, back pain, or any other complaints. Patient verbalized agreement and understanding with this treatment plan and discharge. Differential Diagnosis Differential Diagnoses: The differential diagnosis associated with the presentation includes Chest pain Cocaine use NSTEMI STEMI Costochondritis Admission/Observation Consideration of admission/observation: Escalation of care including admission/observation considered Patient would have been admitted to the hospital had her work up had any findings where hospital admission was appropriate and her clinical presentation warranted hospital admission. Lab Data [facility] Lab Attestation statement: I reviewed the patient's lab results. My interpretation of these results are in the [facility] Rationale portion of this note. 10/18/23 14:02 10/18/23 12:28 Labs: Lab Results 10/18/23 10/18/23 Range/Units 12:28 14:02 WBC 6.2 (4.8-10.8) X10*3/uL RBC 4.64 (4.20-5.50) X10*6/uL Hgb 14.0 (12.0-16.0) g/dl Hct 41.0 (37.0-47.0) % MCV 88.4 (80.0-98.0) fL MCH 30.2 (27.0-33.0) pg MCHC 34.1 (31.0-35.0) g/dl RDW 13.9 (11.0-16.0) % Plt Count 201 (160-400) X10*3/uL MPV 11.5 (9.4-12.3) fL Immature Gran % (Auto) 0.3 (0.0-0.4) % Neut % (Auto) 61.0 (45-73) % Lymph % (Auto) 25.2 (20-40) % [place] % (Auto) 9.0 (2-11) % Eos % (Auto) 4.2 H (0-4) % Baso % (Auto) 0.3 (0-2) % Lymph # (Auto) 1.6 (1.2-4.9) X10*3/uL [place] # (Auto) 0.6 (0.1-1.2) X10*3/uL Eos # (Auto) 0.3 (0.0-0.4) X10*3/uL Baso # (Auto) 0.0 (0.0-0.2) X10*3/uL Abs Immat Gran (auto) 0.02 (0.00-0.03) X10*3/uL Absolute Neuts (auto) 3.8 (2.0-8.3) x10*3/uL Absolute Nucleated RBC 0.000 (0.0-0.012) X10*3/uL Nucleated RBC % (auto) 0.0 (0.0-0.2) /100WBC PT 11.7 (11.1-13.3) SEC INR 1.0 (0.9-1.1) APTT 28.2 (26.0-36.8) SEC Sodium 137 (135-145) mmol/L Potassium 5.2 H (3.3-5.1) mmol/L Chloride 105 (96-108) mmol/L Carbon Dioxide 25 (22-29) mmol/L Anion Gap 12 (12-20) BUN 17 H (9-16) mg/dL Creatinine 0.73 (0.5-1.4) mg/dL Estim Creat Clear Calc 88.2 Estimated GFR > 60 Random Glucose 66 (60-115) mg/dL Calcium 10.2 D (8.4-10.2) mg/dL Magnesium 2.3 (1.6-2.6) mg/dL Total Bilirubin 0.2 (0.0-1.0) mg/dL AST 47 H (5-31) U/L ALT 42 H (0-31) U/L Alkaline Phosphatase 106 (39-117) U/L Troponin I High Sens 2.8 (<3.5-17.0) ng/L B-Natriuretic Peptide 21 (<100) pg/mL Total Protein 8.5 H (6.5-8.0) g/dL Albumin 4.1 (3.5-5.0) g/dL Beta HCG, Quant < 2 mIU/mL Influenza Type A (PCR) NEGATIVE (Negative) Influenza Type B (PCR) NEGATIVE (Negative) RSV RNA Qual (PCR) NEGATIVE (Negative) SARS-CoV-2 RNA (RT-PCR) NEGATIVE (Negative) Independent Interpretation I performed an independent interpretation of an: EKG and Plain X-Ray Interpretation: My interpretation is in agreement with the radiologist's impression of this imaging study. - EXAMINATION: XR CHEST CLINICAL INFORMATION: Chest pain. COMPARISON: 07/19/2020 TECHNIQUE: 2 views of the chest were obtained. FINDINGS: There is no gross pneumothorax. Heart size is normal. Metallic structures with the appearance of likely snaps overlie the thorax. Mild dextroscoliosis of the thoracic spine with multilevel degenerative changes. Heart size is normal. No gross pleural effusion. Moderate increased bibasilar streaky opacities may represent atelectasis and/or an infectious/inflammatory process. XR/XR chest 2V IMPRESSION: Moderate increased bibasilar streaky opacities may represent atelectasis and/or an infectious/inflammatory process. This study was presented today October 18, 2023 for interpretation. Stat results provided at this time as requested by referring provider. Dictated By: Tessa Pollard MD Signed By: Electronically signed by Tessa Pollard MD 10/18/23 1326 - Vent. Rate: 054 BPM Atrial Rate: 054 BPM P-R Int: 166 ms QRS Dur: 086 ms QT Int: 472 ms P-R-T Axes: 056 015 006 degrees QTc Int: 447 ms Sinus bradycardia Otherwise normal ECG When compared with ECG of 12-JUN-2023 12:26, Nonspecific T wave abnormality now evident in Inferior leads Nonspecific T wave abnormality now evident in Lateral leads QT has shortened Electronically Signed By:TYREL TAYLOR Dictated By: Tyrel Taylor MD Signed By: Electronically signed by Tyrel Taylor MD 10/18/23 8142 Radiology Impression Discussion of test interpretation with radiology: I have reviewed the radiologist's reading. Independent Historian Clinical information obtained from an independent historian. History obtained from or confirmed by: EMS (EMS provided additional history and confirmed the history provided by the patient) Prescription Management I considered prescription management with: Antibiotic (patient prescribed an antibiotic for penumonia) Discharge Plan Discharge Clinical Impression: Pneumonia, Acute hyperkalemia Patient Disposition: Home, Self-Care Instructions: Hyperkalemia (ED), Community Acquired Pneumonia (DC) Additional Instructions: Follow up with your primary care provider and a master planner for your chronic bradycardia. Return to the emergency department immediately if your symptoms worsen or if you develop any dizziness, shortness of breath, difficulty breathing, chest pain, blurry vision, loss of vision, nausea, vomiting, abdominal pain, fever, chills, back pain, or any other complaints. Prescriptions: New doxycycline hyclate 100 mg tablet 100 mg PO BID 7 Days Qty: 14 0RF No Action methadone [Methadose] 10 mg/mL concentrate 75 mg PO DAILY sertraline 100 mg Tablet 100 mg PO DAILY 30 Days Qty: 30 0RF olanzapine 10 mg Tablet 10 mg PO BEDTIME PRN (Reason: insomnia) 30 Days Qty: 30 0RF olanzapine 2.5 mg Tablet 2.5 mg PO BID PRN (Reason: Anxiety) 30 Days Qty: 60 0RF magnesium oxide 400 mg (241.3 mg magnesium) Tablet 400 mg PO BEDTIME 30 Days Qty: 30 0RF clonazepam 0.5 mg tablet 0.75 mg PO BEDTIME PRN (Reason: Insomnia) Rx Instructions: take one half (0.5) tablet twice daily as needed for anxiety and one and one half (1.5) tablets at bedtime as needed for insomnia clonazepam [Klonopin] 0.5 mg tablet 0.25 mg PO BID PRN (Reason: Anxiety) Rx Instructions: take one half (0.5) tablet twice daily as needed for anxiety and one and one half (1.5) tablets at bedtime as needed for insomnia Referrals: [facility] [place] Cardi[facility] Specialists [Provider Group] (Call to establish and follow up with a master planner.) [facility] [place] Family Medicine [Provider Group] (Call to establish and follow up with a primary care provider. If you already have a primary care provider, please follow up with them.) [facility] [place] Primary CareDonny [Provider Group] [facility] [place] Primary CareJosselyn [Provider Group] Stand Alone Forms: Work/School Release Interventions: ED Discharge Assessment Last Done: 10/18/23 14:41 Discharge Date/Time: 10/18/23 14:42 Print Language: Georgian
[2023-10-18 12:08] VITALS: BP 116/71; PULSE 49; RESP 14; RESP 20; O2SAT 98
[2023-10-18 12:56] LABS: Troponin-I High Sensitivity 2.8 ng/L (<3.5-17.0)
[2023-10-18 13:00] LABS: Alanine Aminotransferase 42 U/L (0-31); Albumin Level 4.1 g/dL (3.5-5.0); Alkaline Phosphatase 106 U/L (39-117); Anion Gap 12 (12-20); Aspartate Amino Transferase 47 U/L (5-31); Bilirubin Total 0.2 mg/dL (0.0-1.0); Blood Urea Nitrogen 17 mg/dL (9-16); Calcium 10.2 mg/dL (8.4-10.2); Carbon Dioxide 25 mmol/L (22-29); Chloride 105 mmol/L (96-108); Creatinine Clr Calc Pharmacy 88.2; Estimated Glomerular Filt Rate > 60; Glucose Random 66 mg/dL (60-115); HCG Quantitative < 2 mIU/mL; Magnesium 2.3 mg/dL (1.6-2.6); Potassium 5.2 mmol/L (3.3-5.1); Sodium 137 mmol/L (135-145); Total Protein 8.5 g/dL (6.5-8.0)
[2023-10-18 13:18] LABS: Influenza A PCR NEGATIVE (Negative); Influenza B PCR NEGATIVE (Negative); Resp Syncy Virus RNA Qual PCR NEGATIVE (Negative); SARS COV2 PCR INHOUSE NEGATIVE (Negative)
[2023-10-18 14:04] LABS: MANUAL DIFF FLAG NO
[2023-10-18 14:07] LABS: Basophils Percent Auto 0.3 % (0-2); Eosinophils Absolute Auto 0.3 X10*3/uL (0.0-0.4); Eosinophils Percent Auto 4.2 % (0-4); Imm Gran Abs Auto 0.02 X10*3/uL (0.00-0.03); Imm Gran Pct Auto 0.3 % (0.0-0.4); Lymphocytes Absolute Auto 1.6 X10*3/uL (1.2-4.9); Lymphocytes Percent Auto 25.2 % (20-40); Mean Corpuscular HGB Conc 34.1 g/dl (31.0-35.0); Mean Corpuscular Hemoglobin 30.2 pg (27.0-33.0); Mean Corpuscular Volume 88.4 fL (80.0-98.0); Mean Platelet Volume 11.5 fL (9.4-12.3); Monocytes Absolute Auto 0.6 X10*3/uL (0.1-1.2); Neutrophils Absolute Auto 3.8 x10*3/uL (2.0-8.3); Platelet Count 201 X10*3/uL (160-400); Red Blood Count 4.64 X10*6/uL (4.20-5.50); Red Cell Distribution Width 13.9 % (11.0-16.0); White Blood Count 6.2 X10*3/uL (4.8-10.8)
[2023-10-18 14:12] LABS: Prothrombin Time 11.7 SEC (11.1-13.3)
[2023-10-18 14:15] LABS: Partial Thromboplastin Time 28.2 SEC (26.0-36.8)
[2023-10-18 14:32] LABS: B Type Natriuretic Peptide 21 pg/mL (<100)
[2023-10-18 14:41] VITALS: BP 114/76; PULSE 60; RESP 20; TEMP 37.2; O2SAT 94
== END 2023-10-18 14:42 | disposition home or self-care (01) ==
PROVIDERS: Physician Assistant Medical; Emergency Provider Emergency Medicine
DX: J44.0 Chronic obstructive pulmonary disease with (acute) lower respiratory infection (principal); J18.9 Pneumonia, unspecified organism; E87.5 Hyperkalemia
CPT/HCPCS: 0241U; 36415; 71046; 80053; 83735; 83880; 84484; 84702; 85025; 85610; 85730; 93005; 99283; 99285

== ENCOUNTER → 2023-10-18 10:28 | Outpatient (BNV) | payer OTHER, SELFPAY | PROVIDERS: Emergency Provider Emergency Medicine; Visit Provider Internal Medicine | DX: R00.1 Bradycardia, unspecified (principal) | CPT/HCPCS: 93010 ==

== ENCOUNTER 2023-11-25 14:13 | Outpatient (AMB) | payer OTHER, SELFPAY ==
[2023-11-25 14:18] VITALS: BP 114/60; PULSE 83; BMI 28.4
--- NOTE | 2023-11-25 14:18 | A.OFFVIS_ITS ---
Vital Signs 11/25/23 14:18 Height 5 ft 4 in Weight 165 lb 5.547 oz BMI 28.4 BP 114/60 Blood Pressure Location Lt brachial Position Sitting Pulse 83 Pulse Source Pulse Oximeter Intake Visit Reasons: [facility] [place] ED fu req Allergies trazodone [TRAZODONE] Allergy (Severe, Verified 10/18/23 10:28) SHORTNESS OF BREATH, GASPING FOR AIR , SOB aspirin [ASPIRIN] Allergy (Unknown, Verified 10/18/23 10:28) STOMACH UPSET, Nausea, nausa ciprofloxacin [Cipro] Allergy (Unknown, Verified 10/18/23 10:28) Rash promethazine [Phenergan] Allergy (Unknown, Verified 10/18/23 10:28) Hives Sulfa (Sulfonamide Antibiotics) Allergy (Unknown, Verified 10/18/23 10:28) Unknown Medication List - Last Reconciled 11/25/23 by Leandar Oakley NP baclofen 10 mg PO TID clonazepam (Klonopin) 0.25 mg PO BID PRN lorazepam 0.5 mg PO BEDTIME PRN magnesium oxide 400 mg PO BEDTIME 30 days methadone (Methadose) 75 mg PO DAILY sertraline 100 mg PO DAILY 30 days HPI Comments Details: 53-year-old female presents today for a new patient visit. She was in the emergency department on 10/18/2023 for chest pains and pneumonia. She reports she is very fatigue, having chest pains, shortness of breath on exertion, dizziness, having palpitations (reported as a pause then double beat) and swelling in her ankles. She reports she is in a program and is 7 months clean for illicit drug use. SHe does not drink alcohol but does smoke. She is prediabetic and had seen Dr. Oneal in the past for bradycardia. REPLACED BY [facility] Medical History (Updated 11/25/23 @ 14:59 by Leandra Oakley NP) Shortness of breath Chest pain Adjustment disorder with mixed disturbance of emotions and conduct in remission Opioid dependence PTSD (post-traumatic stress disorder) MDD (major depressive disorder), recurrent episode, severe COPD (chronic obstructive pulmonary disease) Asthma Cocaine use disorder, moderate, dependence Post traumatic stress disorder Major depression, recurrent 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 Tobacco Use Status: Former Tobacco user Tobacco use type: Cigarette Cigarette Packs Per Day: 0.5 Cigarettes Per Day: 3 Years Smoked: 40 years e-Cigarette/Vaping Use: Never Used Second Hand Smoke Exposure: Yes Substance Use Type: Crack/Cocaine and Prescription Drugs Advance Directives Date on File: 09/20/20 service: No Current occupational status: disabled Sexual orientation: Straight/Heterosexual Review of Systems Const Denies weakness ENT Denies dizziness Card Denies chest pain, Denies chest pain with activity, Denies syncope, Denies rapid heart rate, Denies pedal edema, Denies edema, Denies leg edema, Denies lightheadedness, Denies palpitations, Denies dyspnea, Denies dyspnea on exertion and Denies orthopnea Resp Denies cough, Denies dyspnea and Denies dyspnea on exertion GI Denies hematochezia and Denies change in stool character Musc Denies abnormal gait, Denies muscle cramps, Denies muscle weakness, Denies numbness, Denies radiating pain into limb and Denies tingling Neuro Denies abnormal gait, Denies dizziness, Denies syncope, Denies numbness, Denies tingling and Denies weakness Endo Denies palpitations Physical Exam Vital Signs: Last Vital Signs Pulse 83 11/25/23 14:18 BP 114/60 11/25/23 14:18 BMI result Body Mass Index 28.4 Const General: healthy appearing and no acute distress Orientation/consciousness: patient oriented x3 HEENT Head: Yes normal to inspection Eyes General: appearance normal, both eyes and all related structures Neck Neck: Yes normal visual inspection Chest Chest palpation & inspection: normal inspection of the chest Resp Effort & Inspection: normal respiratory effort Auscultation: clear to auscultation bilaterally Cardio Jugular venous distension: no JVD Palpation: normal PMI Rate: regular rate Rhythm: regular rhythm Heart sounds: S1 normal heart sound present, S2 normal heart sound present, no click, no gallops, no murmurs and no rubs GI Inspection: Yes normal to inspection Palpation (GI): Soft to palpation Skin General skin exam: no rashes or lesions noted Neuro General: patient oriented x3 Extrem General: Yes normal to inspection Psych Appearance: grossly normal Assessment & Plan Assessment & Plan (1) Sinus bradycardia: Code(s): R00.1 - Bradycardia, unspecified Category: Medical Plan: Will check exercise stress test to see chronotropic competence. Will also order holter montior to assess for arrhythmias. (2) Chest pain: Code(s): R07.9 - Chest pain, unspecified Category: Medical Plan: Will get exercise stress test and echocardiogram to assess for ischemia. (3) Acute hyperkalemia: Code(s): E87.5 - Hyperkalemia Category: Medical Plan: Will recheck labs. (4) Shortness of breath: Code(s): R06.02 - Shortness of breath Category: Medical Plan: as above Orders: Orders ECG holter monitor 48 hour 11/25/23 R00.1 - Bradycardia, unspecified Basic Metabolic Panel 11/25/23 E87.5 - Hyperkalemia CA stress test 11/25/23 R06.02 - Shortness of breath, R07.9 - Chest pain, unspecified CA echo transthoracic complete 11/25/23 R00.1 - Bradycardia, unspecified, R07.9 - Chest pain, unspecified Basic Metabolic Panel 11/25/23 R07.9 - Chest pain, unspecified Medications: Discontinued olanzapine Discontinued Reason: Patient no longer taking 2.5 mg PO BID 30 days PRN 60 tabs 0RF Anxiety doxycycline hyclate Discontinued Reason: Patient no longer taking 100 mg PO BID 7 days 14 tabs 0RF olanzapine Discontinued Reason: Patient no longer taking 10 mg PO BEDTIME 30 days PRN 30 tabs 0RF insomnia Coding Level of Care Code Est Pt Level 4 (31239) Diagnoses Sinus bradycardia R00.1 Chest pain R07.9 Acute hyperkalemia E87.5 Shortness of breath R06.02
== END 2023-11-25 15:06 | disposition home or self-care (01) ==
PROVIDERS: Visit Provider Nurse Practitioner
DX: R00.1 Bradycardia, unspecified (principal); R07.9 Chest pain, unspecified; E87.5 Hyperkalemia; R06.02 Shortness of breath
CPT/HCPCS: 99214

== ENCOUNTER 2023-11-25 14:13 | Outpatient (REF) | payer OTHER, SELFPAY ==
[2023-11-25 16:03] LABS: Anion Gap 15 (12-20); Blood Urea Nitrogen 18 mg/dL (9-16); Calcium 10.1 mg/dL (8.4-10.2); Carbon Dioxide 26 mmol/L (22-29); Chloride 106 mmol/L (96-108); Estimated Glomerular Filt Rate > 60; Glucose Random 86 mg/dL (60-115); Potassium 3.9 mmol/L (3.3-5.1); Sodium 143 mmol/L (135-145)
== END 2023-11-25 14:14 | disposition home or self-care (01) ==
LOC: HO.LAB 14:13
PROVIDERS: Visit Provider Nurse Practitioner
DX: R00.1 Bradycardia, unspecified (principal); R07.9 Chest pain, unspecified; R06.02 Shortness of breath; E87.5 Hyperkalemia
CPT/HCPCS: 36415; 80048; 99212

== ENCOUNTER → 2023-12-17 08:53 | Outpatient (REF) | payer OTHER, SELFPAY ==
--- NOTE | 2023-12-17 09:00 | HM_ITS ---
Conclusion: 1. Patient was monitored for total period of 4 days and 18 hours 2. Baseline was normal sinus rhythm with average heart of 68 beats per minute 3. No significant pauses or arrhythmias noted 4. Patient marked the counter 6 times with symptoms of chest tightness, correlating with sinus rhythm or sinus tachycardia MTDD
--- NOTE | 2023-12-17 09:00 | CA_ITS ---
Transthoracic Echocardiogram Patient (Last, First, Middle): Kelley Chow, Gender: Female Date of : 1970 Age: 53 Procedure Date: 12/17/2023 Procedure Type: Transthoracic Echocardiogram Location: OP Height: 160. cm Weight: 75.75 kg BSA: 1.79 m2 Heart Rate: 64 bpm BP: 120 / 75 mmHg Correction Officer Reformatory: LAKSHMI Melchor MD: Leandra Oakley NP Auto Parts Manager: Parker Ivy MD Symptoms: R00.1 - Bradycardia, unspecified Study Quality: Adequate ECG Rhythm: Sinus Conclusions: - Normal study Findings Left Ventricle Normal left ventricular size, thickness, and systolic function. The visually estimated ejection fraction is between 60-65%. Spectral Doppler is indicative of a normal filling pattern. Peak GLS is -19.1%, within normal limits. Right Ventricle Normal right ventricular cavity size and systolic function. Atria Both atria are normal in size. There is no evidence of interatrial shunt. Aortic Valve Normal aortic valve structure and function. There is no aortic valve stenosis. There is no aortic valve regurgitation. Mitral Valve Normal mitral valve structure and function. There is trace mitral valve regurgitation. There is no mitral valve stenosis. Pulmonic Valve The pulmonic valve is likely normal. There is trace pulmonic valve regurgitation. Tricuspid Valve Normal tricuspid valve structure. There is trace tricuspid valve regurgitation. The right ventricular systolic pressure is normal. The right ventricular systolic pressure is 16 mmHg. Normal right atrial pressure. There is no evidence of pulmonary hypertension. Great Vessels All visible segments of the aorta are normal in size. The visualized portions of the pulmonary artery and branches are normal. Venous The inferior vena cava is normal in size and collapses greater than 50% with inspiration. Pericardium/Pleural There is no evidence of pericardial effusion. Measurements 2D Linear Measurements IVSd: 0.84 0.6-0.9/0.6-1.0 cm LVIDd: 4.84 3.9-5.3/4.2-5.9 cm LVIDd Index: 2.70 2.4-3.2/2.2-3.1 cm/m2 LVIDs: 3.15 2.0-3.6 cm LVPWd: 1.05 0.7-1.1 cm LA Diam: 3.60 2.7-3.8/3.0-4.0 cm LAIDs Index: 2.01 1.5-2.3 cm/m2 LV Mass: 199.66 67-162/88-224 g LV Mass Index: 111.54 43-95/49-115 g/m2 LVOT Diam: 1.90 3.0+(-)1.3 cm 2D Systolic Function EF 4C: 62.00 >55% EF 2C: 57.50 >55% EF BiP: 60.50 >55% Mitral Valve MV Pk E: 0.84 MV PK A: 0.79 MV Decel Time: 201.00 E/A: 1.10 E'Lateral: 11.60 E'Medial: 8.70 E/E' Med: 9.70 E/E' Lat: 7.30 PHT: 59.00 MVA PHT: 3.73 Decel Alfalfa: 4.21 Aortic Valve AoV Pk Rodo: 1.58 AoV Mn Rodo: 1.18 AoV VTI: 0.37 AoV Pk Grad: 10.00 Aov Mn Grad: 6.00 RICCI Cont.VTI: 2.33 LVOT LVOT Pk Rodo: 1.39 LVOT Mn Rodo: 0.94 LVOT VTI: 0.31 LVOT Pk Grad: 8.00 LVOT Mn Grad: 4.00 LVOT Diam: 1.90 LVOT Area: 2.84 Diastolic Function MV Pk E: 0.84 MV Pk A: 0.79 E/A: 1.10 E'Medial: 8.70 E/E' Med: 9.70 E' Laterial: 11.60 E/E' Lat: 7.30 Right Ventricle TAPSE (mm): 18.70 TVS' Rodo: 12.10 Tricuspid Valve TR Pk Rodo: 1.83 TR Pk Grad: 13.00 RA Press: 3.00 RVSP: 16.00 Great Vessels Aorta Sinus of Valsalva: 2.90 2.0-3.5 cm Ao Asc: 2.90 2.1-3.4 cm Pulmonary Valve PV Pk Rodo: 0.88 Peak PV Grad: 3.00 Updated in Other Vendor System with Status of Final Parker Ivy MD electronically signed on 12/17/2023 3:38:04 PM with status of Final
--- NOTE | 2023-12-17 09:00 | CA_ITS ---
Acquisition Time: 2023-12-17 09:43:34 Total Exercise Time: 00:08:57 Test Indications: cp, sob Medications: see h Protocol: GIOVANI Max HR: 142 BPM 85% of Pred: 167 BPM Max BP: 170/080 mmHG Max Work Load: 10.1 METS Exercise stress test exercise 8 min 57 sec of Giovani protocol achieving 81-84% MPHR, with mild SOB, 5/10 chest tightness, with isolated PACs seen through artfact,w ithout EKG changes. Chest paims resolved with rest. Test reviewed with Dr. Ivy Referred By: Leandra Oakley Overread By: Leandra Oakley
[2023-12-17 09:53] LABS: Anion Gap 11 (12-20); Blood Urea Nitrogen 17 mg/dL (9-16); Calcium 9.7 mg/dL (8.4-10.2); Carbon Dioxide 26 mmol/L (22-29); Chloride 107 mmol/L (96-108); Estimated Glomerular Filt Rate > 60; Glucose Random 106 mg/dL (60-115); Potassium 4.3 mmol/L (3.3-5.1); Sodium 140 mmol/L (135-145)
== END ==
LOC: HO.CARD 08:53
PROVIDERS: Visit Provider Nurse Practitioner
DX: R07.9 Chest pain, unspecified (principal); R06.02 Shortness of breath; R00.1 Bradycardia, unspecified
CPT/HCPCS: 36415; 80048; 93017; 93225; 93306; 93356

== ENCOUNTER → 2023-12-17 09:00 | Outpatient (BNV) | payer OTHER, SELFPAY | PROVIDERS: Visit Provider Internal Medicine Cardiovascular Disease | DX: R00.0 Tachycardia, unspecified (principal) | CPT/HCPCS: 93016; 93018; 93244; 93320; 93325; 93350; 93356 ==

== ENCOUNTER 2024-02-09 13:53 | Outpatient (AMB) | payer OTHER, SELFPAY ==
[2024-02-09 14:02] VITALS: BP 124/62; PULSE 63
--- NOTE | 2024-02-09 14:02 | A.OFFVIS_ITS ---
Vital Signs 02/09/24 14:02 Height 5 ft 4 in Weight 174 lb 9.698 oz BMI 30.0 BP 124/62 Blood Pressure Location Lt brachial Position Sitting Pulse 63 Pulse Source Pulse Oximeter Intake Visit Reasons: r/s 01/26/24 2 mos followup Credit Department Manager Required: No Accompanied by: Self / Same As Patient Allergies trazodone [TRAZODONE] Allergy (Severe, Verified 10/18/23 10:28) SHORTNESS OF BREATH, GASPING FOR AIR , SOB aspirin [ASPIRIN] Allergy (Unknown, Verified 10/18/23 10:28) STOMACH UPSET, Nausea, nausa ciprofloxacin [Cipro] Allergy (Unknown, Verified 10/18/23 10:28) Rash promethazine [Phenergan] Allergy (Unknown, Verified 10/18/23 10:) Hives Sulfa (Sulfonamide Antibiotics) Allergy (Unknown, Verified 10/18/23 10:) Unknown Medication List - Last Reconciled 02/09/24 by Tyrel Oneal MD baclofen 10 mg PO TID clonazepam (Klonopin) 0.25 mg PO BID PRN magnesium oxide 400 mg PO BEDTIME 30 days methadone (Methadose) 75 mg PO DAILY sertraline 50 mg PO DAILY HPI Comments Details: Kelley returns for follow-up. Recently seen by nurse practitioner. It seems that is a long history of substance abuse. Her cocaine screen has been positive from 2019 essentially every single time till June of 2023. There is no further drug testing after that. She states she gets frequent chest pains. This can happen any time. With or without exertion. It feels like a pressure in the chest. No known coronary disease or myocardial infarction or cardiomyopathy. She states she has not done any drugs since the beginning of this year. [facility] Medical History (Updated 02/09/24 @ 14:27 by Tyrel Oneal MD) Cocaine use disorder, moderate, dependence Shortness of breath Chest pain Adjustment disorder with mixed disturbance of emotions and conduct in remission Opioid dependence PTSD (post-traumatic stress disorder) MDD (major depressive disorder), recurrent episode, severe COPD (chronic obstructive pulmonary disease) Asthma Post traumatic stress disorder Major depression, recurrent Family History Unknown No problems noted. 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 Tobacco Use Status: Former Tobacco user Tobacco use type: Cigarette Cigarette Packs Per Day: 0.5 Cigarettes Per Day: 3 Years Smoked: 40 years e-Cigarette/Vaping Use: Never Used Second Hand Smoke Exposure: Yes Substance Use Type: Crack/Cocaine and Prescription Drugs Advance Directives Date on File: 09/20/20 service: No Current occupational status: disabled Sexual orientation: Straight/Heterosexual Review of Systems Const Denies chills, Denies fatigue, Denies fever(s), Denies frequent falls, Denies weakness, Denies weight gain and Denies weight loss ENT Denies dizziness Card Denies chest pain, Denies leg edema, Denies lightheadedness, Denies palpitations, Denies dyspnea and Denies dyspnea on exertion Resp Denies cough, Denies dyspnea and Denies dyspnea on exertion GI Denies hematochezia Musc Denies abnormal gait, Denies muscle weakness, Denies numbness, Denies radiating pain into limb and Denies tingling Neuro Denies abnormal gait, Denies dizziness, Denies frequent falls, Denies numbness, Denies tingling and Denies weakness Endo Denies fatigue and Denies palpitations Physical Exam Vital Signs: Last Vital Signs Pulse 63 02/09/24 14:02 BP 124/62 02/09/24 14:02 BMI result Body Mass Index 30.0 Const General: comfortable and no acute distress Orientation/consciousness: patient oriented x3 HEENT Other: Unremarkable Head: Yes normal to inspection Neck Neck: Yes normal visual inspection Chest Chest palpation & inspection: normal inspection of the chest Resp Auscultation: clear to auscultation bilaterally Cardio Palpation: normal PMI Heart sounds: S1 normal heart sound present, S2 normal heart sound present, no gallops, no murmurs and no rubs GI Palpation (GI): Soft to palpation Back/Spine/Pelvis Other: unremarkable Skin General skin exam: no rashes or lesions noted Neuro General: patient oriented x3 Extrem General: Yes normal to inspection Psych Mental Status: mental status grossly normal Assessment & Plan Assessment & Plan (1) Precordial chest pain: Code(s): R07.2 - Precordial pain Category: Medical (2) Cocaine use disorder, moderate, dependence: Code(s): F14.20 - Cocaine dependence, uncomplicated Category: Medical Plan EKG with underlying sinus bradycardia at 54/Min; no significant ST-T changes and otherwise unremarkable. Normal TN and corrected QT. Available high sensitivity troponins are within normal limits. Drug testing-opiates positive different times; cocaine essentially positive every time from 2018 to June of 2023. Echocardiogram with LVEF of 60-65%. Normal peak global longitudinal strain. Otherwise unremarkable. In the stress test, she was able to exercise for about 10 Mets and reached 81- 84% of target heart rate and had 5/10 chest tightness. No EKG evidence of ischemia. Then perfusion imaging was ordered but not yet performed. We can try to obtain rather a coronary CTA for further evaluation. Patient states that she has not done drugs for the last 7-8 months. Needs to refrain completely. She states she is in a program. Total time spent including review of data, counseling, documentation, coordination of care-31 minutes. Orders: Orders CT Cardiac Coronary Angio Today Tyrel Oneal MD I25.10 - Atherosclerotic heart disease of [place] coronary artery without angina pectoris, R07.2 - Precordial pain Basic Metabolic Panel Today Tyrel Oneal MD R07.2 - Precordial pain Medications: Changed From sertraline 100 mg PO DAILY 30 days 30 tabs 0RF To sertraline 50 mg PO DAILY Loy Farr MD Coding Level of Care Code Est Pt Level 4 (42214) Diagnoses Precordial chest pain R07.2 Cocaine use disorder, moderate, dependence F14.20
== END 2024-02-09 14:22 | disposition home or self-care (01) ==
PROVIDERS: Visit Provider Internal Medicine
DX: R07.2 Precordial pain (principal); F14.20 Cocaine dependence, uncomplicated
CPT/HCPCS: 99214

== ENCOUNTER → 2024-02-09 13:53 | Outpatient (BNVA) | payer OTHER, SELFPAY | PROVIDERS: Visit Provider Internal Medicine | DX: R07.2 Precordial pain (principal); F14.20 Cocaine dependence, uncomplicated | CPT/HCPCS: 99212 ==

== ENCOUNTER 2024-02-23 09:31 | Outpatient (REF) | payer OTHER, SELFPAY | END 2024-02-23 09:32 | disposition home or self-care (01) | LOC: HO.HOSX 09:31 | DX: M25.511 Pain in right shoulder (principal); M24.811 Other specific joint derangements of right shoulder, not elsewhere classified | CPT/HCPCS: 73030; 99202 ==

== ENCOUNTER 2024-02-23 11:49 | Outpatient (AMB) | payer OTHER, SELFPAY ==
--- NOTE | 2024-02-23 11:53 | A.OFFVIS_ITS ---
Intake Visit Reasons: New prob- Right Shoulder pain Intake Note: Kelley is a 54 year old right hand dominant female who presents today for a new problem visit with complaints of right shoulder pain. Pt states that her shoulder started hurting in December and then she states she fell out of bed which made the pain worse. Pt states she went to urgent care and was given a sling which she wears as much as possible. Pt states it is hard to make sudden movements and lift things with her right arm. Pt denies any previous surgeries or injections in her right arm. Allergies trazodone [TRAZODONE] Allergy (Severe, Verified 02/23/24 11:53) SHORTNESS OF BREATH, GASPING FOR AIR , SOB aspirin [ASPIRIN] Allergy (Unknown, Verified 02/23/24 11:53) STOMACH UPSET, Nausea, nausa ciprofloxacin [Cipro] Allergy (Unknown, Verified 02/23/24 11:53) Rash promethazine [Phenergan] Allergy (Unknown, Verified 02/23/24 11:53) Hives Sulfa (Sulfonamide Antibiotics) Allergy (Unknown, Verified 02/23/24 11:53) Unknown HPI HPI New prob- Right Shoulder pain: Details: Patient is a 54 YO F who presents for evaluation of R shoulder pain, ongoing for approximately 2 months. The patient reports that approximately 2 weeks into her pain, she fell off of her bed while sleeping, and noticed an increase in her R shoulder pain. Today, the patient reports that her pain has remained consistent since that time, and that this makes range of motion or lifting with the right arm or hand difficult. The patient reports that she is currently living at a rehab facility, and then they have fairly extensive chores that they are required to do, and the shoulder pain makes these fairly difficult. No other acute complaints or concerns at this time. [facility] Medical History (Updated 02/23/24 @ 12:27 by DINESH Marsh) Cocaine use disorder, moderate, dependence Shortness of breath Chest pain Adjustment disorder with mixed disturbance of emotions and conduct in remission Opioid dependence PTSD (post-traumatic stress disorder) MDD (major depressive disorder), recurrent episode, severe COPD (chronic obstructive pulmonary disease) Asthma Post traumatic stress disorder Major depression, recurrent Family History (Updated 02/09/24 @ 14:23 by Tyrel Oneal MD) Unknown No problems noted. 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 Tobacco Use Status: Former Tobacco user Tobacco use type: Cigarette Cigarette Packs Per Day: 0.5 Cigarettes Per Day: 3 Years Smoked: 40 years e-Cigarette/Vaping Use: Never Used Second Hand Smoke Exposure: Yes Substance Use Type: Crack/Cocaine and Prescription Drugs Advance Directives Date on File: 09/20/20 service: No Current occupational status: disabled Sexual orientation: Straight/Heterosexual Review of Systems Const All systems reviewed & are unremarkable except as noted in HPI and below Physical Exam Extrem Other: On inspection, there is no visible deformity of the patient's right shoulder No erythema, edema, ecchymosis noted No lacerations, abrasions, open areas No evidence of infection Patient reports diffuse tenderness to palpation throughout the right shoulder, worst on the posterior aspect and the greater tuberosity of the humeral head Patient is able to forward flex the shoulder to 90 degrees, but reports significant discomfort when doing so Patient is able to externally rotate the right shoulder to approximately 45-50 degrees, but experiences pain after this 3/5 strength empty can on the right when compared to the left Negative belly press Negative lift-off Positive Brown Distal sensation intact Capillary refill brisk Results Reviewed Results Reviewed: X-rays obtained in the office today and independently reviewed by me, Sergio Hunt PA-C, demonstrate no fracture or acute bony abnormality. Assessment & Plan Assessment & Plan (1) Internal derangement of right shoulder: Code(s): M24.811 - Other specific joint derangements of right shoulder, not elsewhere classified Category: Medical Plan 1. Internal derangement of right shoulder Ongoing for approximately 2 months Due to the patient's symptoms and physical exam findings, I am concerned for a potential rotator cuff pathology to explain this patient's shoulder pain Due to this, I have ordered a right shoulder MRI to assess the health of the internal structures of the right shoulder PT also ordered to help with range of motion and strengthening of the right shoulder prior to MRI Patient is advised on conservative pain management measures such as rest, ice, elevation, [id number]-niy-[id number] pain medication as needed, and topical pain medication as needed for pain management in the meantime Patient understands this and is amenable to this plan Patient will follow-up for telehealth appointment after MRI for results review and discussion of further treatment options if indicated, sooner with any acute concerns Orders: Orders PT Evaluation and Treatment Today M24.811 - Other specific joint derangements of right shoulder, not elsewhere classified XR shoulder RT min 2V Today M25.511 - Pain in right shoulder MR shoulder RT wo con Today M24.811 - Other specific joint derangements of right shoulder, not elsewhere classified, M77.8 - Other enthesopathies, not elsewhere classified Coding Level of Care Code New Pt Level 3 (18004) Diagnoses Internal derangement of right shoulder M24.811
== END 2024-02-23 12:30 | disposition home or self-care (01) ==
DX: M24.811 Other specific joint derangements of right shoulder, not elsewhere classified (principal)
CPT/HCPCS: 99203

== ENCOUNTER 2025-01-31 10:33 | Inpatient (IN) | payer OTHER, SELFPAY ==
--- OUTSIDE RECORDS SUMMARY | 2024-01-13 09:15 | XMS_ITS ---
Author Organization [facility] Address [address] [place] [id number] Care Team Providers Care Batch Room Technician Name Role Phone [facility] Pact, Program Primary Care Provider Madonna Crook Encounters Encounter Location Date Provider Diagnosis [facility] [address] [place] [phone] 01/13/2024 Maodnna Crook Plan Of Treatment No Information Progress Notes * Kelley HOLMeDOB: [birth year] (55 yo F)Acc No.[id number]:01/13/2024 Case Management Patient: Kelley MATHEWS Provider: Don Crook :1970 A ge:53 Y S ex:Female Date:01/13/2024 Address:[address] [place] [address], [address] floor, [id number] Pcp:Program [facility] Pact Subjective: * Chief Complaints: * * Medical History: Objective: Assessment: Plan: * Treatment: * Images: Billing Information: * Visit Code: * Procedure Codes: Care Plan Details* * Electronic signature of Michael Crook on 01/31/2025 at 02:55 PM EDT Sign off status: Pending * Provider: Don Crook Date: 01/13/2024 Generated for Mony germain/Oscar/eTviviane on: 01/31/2025 02:55 PM EDT
--- OUTSIDE RECORDS SUMMARY | 2024-02-11 05:30 | XMS_ITS ---
Author Organization [facility] Address [address] [place] [id number] Care Team Providers Care Setter Helper Name Role Phone [facility] Pact, Program Primary Care Provider [phone] Madonna Crook Encounters Encounter Location Date Provider Diagnosis [facility] [address] [place] [phone] 02/11/2024 Madonna Crook Plan Of Treatment No Information Progress Notes * Kelley HOLMeDOB: [birth year] (55 yo F)Acc No.[id number]:02/11/2024 Case Management Patient: Kelley MATHEWS Provider: Don Crook :1970 A ge:54 Y S ex:Female Date:02/11/2024 Address:[address] [place] [address], [address] floor, [id number] Pcp:Program [facility] Pact Subjective: * Chief Complaints: * * Medical History: Objective: Assessment: Plan: * Treatment: * Images: Billing Information: * Visit Code: * Procedure Codes: Care Plan Details* * Electronic signature of Michael Crook on 01/31/2025 at 02:55 PM EDT Sign off status: Pending * Provider: Don Crook Date: 1 Generated for Mony germain/Oscar/eTviviane on: 0 01/31/2025 02:55 PM EDT
--- OUTSIDE RECORDS SUMMARY | 2025-01-20 17:00 | XMS_ITS ---
Author Organization [facility] Address [address] [place] [address] Care Team Providers Care Almond Huller Name Role Phone [facility] Pact, Program Primary Care Provider Madonna Crook Unavailable Migration, Provider Unavailable Unavailable Allergies Allergen (clinical drug ingredient) Drug/Non Drug Allergy documented on EMR Reaction Allergy Type Onset Date Status acetaminophen Tylenol >LFT's Drug Allergy Act olga promethazine Phenergan rash Drug Allergy Acti ve ciprofloxacin Cipro rash Drug Allergy Act olga ASA (uncoded) nausea Allergy [facility] Encounter Medications Medication SIG (Take, Route, Frequency, Duration) Notes Start Date End Date Status ProAir HFA CFC FREE 90 MCG/INH 2 PUFF(S) INHALED 4 TIMES A DAY *Please review and pick correct strength-formulati on from [employer] options. If intended option is not shown, discontinue and re-order from Quick Search* Active Hydrocortisone 2.5 % 1 sari applied topically bid 04/26/2012 Active Simvastatin 20 MG 1 tab(s) orally once a day (at bedtime) 12/19/2012 05/10/2024 Active Zoloft 100 MG 2 tab(s) orally once a day 05/10/2024 05/10/2024 Active Methadone HCl 60 MG DAILY ORALLY DAILY- [facility] *Please review and pick correct strength-formulati on from [employer] options. If intended option is not shown, discontinue and re-order from Quick Search* 05/10/2024 05/10/2024 Active MiraLax - 17 G ORALLY ONCE A DAY for 30 DAY(S) *Please review and pick correct strength-formulati on from [employer] options. If intended option is not shown, discontinue and re-order from Quick Search* Active Docusate Sodium 50 MG 1 cap(s) orally 2 times a day Active Flovent HFA CFC FREE 110 MCG/INH 2 PUFF(S) INHALED 2 TIMES A DAY for 30 DAY(S) *Please review and pick correct strength-formulati on from [employer] options. If intended option is not shown, discontinue and re-order from Quick Search* 05/12/2012 Active Encounters Encounter Location Date Provider Diagnosis [address] [phone] 01/20/2025 Provider Migration Hypercholesterolemia 272.0 ; Asthma 493.00 ; Depression with anxiety 300.4 ; Constipation not elsewhere classified 564.09 and Opioid abuse, in remission 305.53 Assessments Encounter Date Diagnosis (ICD Code) Assessment Notes Treatment Notes Treatment Clinical Notes Section Notes 01/20/2025 Hypercholesterolemia (ICD9-CM - 272.0) 01/20/2025 Asthma (ICD9-CM - 493.00) 01/20/2025 Depression with anxi ety (ICD9-CM - 300.4) 01/20/2025 Constipation not elsewhere classified (ICD9-CM - 564.09) 01/20/2025 Opioid abuse, in remission (ICD9-CM - 305.53) Plan Of Treatment Medication Medication Name Sig Start Date Stop Date Notes ProAir HFA CFC FREE 90 MCG/INH 2 PUFF(S) INHALED 4 TIMES A DAY *Please review and pick correct strength-formulation from [employer] options. If intended option is not shown, discontinue and re-order from Quick Search* Simvastatin 20 MG 1 tab(s) orally once a day (at bedtime) 12/19/2012 05/10/2024 Zoloft 100 MG 2 tab(s) orally once a day 05/10/2024 05/10/2024 Methadone HCl 60 MG DAILY ORALLY DAILY- [facility] 05/10/2024 05/10/2024 *Please review and pick correct strength-formulation from [employer] options. If intended option is not shown, discontinue and re-order from Quick Search* MiraLax - 17 G ORALLY ONCE A DAY for 30 DAY(S) *Please review and pick correct strength-formulation from [employer] options. If intended option is not shown, discontinue and re-order from Quick Search* Docusate Sodium 50 MG 1 cap(s) orally 2 times a day Flovent HFA CFC FREE 110 MCG/INH 2 PUFF(S) INHALED 2 TIMES A DAY for 30 DAY(S) 05/12/2012 *Please review and pick correct strength-formulation from [employer] options. If intended option is not shown, discontinue and re-order from Quick Search* Progress Notes * Kelley HOLMOB: [birth year] (55 yo F)Acc No.[id number]:01/20/2025 Patient: Kelley MATHEWS Provider: :1970 A ge:54 Y S ex:Female Date:01/20/2025 Address:[address] [place] [address], [address] floor, [place] [phone] Pcp:John LANDERS Pact Subjective: * Chief Complaints: * 1 . Mult[facility] To Med[employer] Conversion Encounter. * Medical History: * Medications: T aking Hydrocortisone 2.5 % Cream 1 sari applied topically bid * Allergies: A SA: nausea, Cipro: rash, Phenergan: rash, Tylenol: >LFT's. Objective: * Vitals: Assessment: * Assessment: 1. H ypercholesterolemia - 272.0 (Primary) 2 . A sthma - 493.00 ?3. D epression with anxiety - 300.4 4 . C onstipation not elsewhere classified - 564.09 5 . O pioid abuse, in remission - 305.53 Plan: * Treatment: 2. A sthma Refill Flovent HFA AEROSOL WITH ADAPTER, CFC FREE 110 MCG/INH, 2 PUFF(S), INHALED, 2 TIMES A DAY, 30 DAY(S), 1 INHALER, Refills 5, Notes to Pharmacist: *Please review and pick correct strength-formulation from [employer] options. If intended option is not shown, discontinue and re-order from Quick Search*; C ontinue ProAir HFA AEROSOL WITH ADAPTER, CFC FREE 90 MCG/INH, 2 PUFF(S), INHALED, 4 TIMES A DAY, Notes to Pharmacist: *Please review and pick correct strength-formulation from [employer] options. If intended option is not shown, discontinue and re-order from Quick Search*. 3. D epression with anxiety Continue Zoloft Tablet, 100 MG, 2 tab(s), orally, once a day. 4. C onstipation not elsewhere classified Refill MiraLax POWDER FOR RECONSTITUTION, -, 17 G, ORALLY, ONCE A DAY, 30 DAY(S), 1, Refills 1, Notes to Pharmacist: *Please review and pick correct strength-formulation from [employer] options. If intended option is not shown, discontinue and re-order from Quick Search*; R efill Docusate Sodium Capsule, 50 MG, 1 cap(s), orally, 2 times a day. 5. O pioid abuse, in remission Continue Methadone HCl LIQUID, 60 MG, DAILY, ORALLY, DAILY- [facility], Notes to Pharmacist: *Please review and pick correct strength-formulation from [employer] options. If intended option is not shown, discontinue and re-order from Quick Search*. * Images: Billing Information: * Visit Code: * Procedure Codes: * Electronic signature of Prov ider Migration on 01/31/2025 at 02:55 PM EDT Sign off status: Pending * Provider: Date: 01/20/2025 Generated for Mony germain/Oscar/Aideitting on: 01/31/2025 02:55 PM EDT
[2025-01-31 10:49] VITALS: BP 122/77; BP 132/84; PULSE 76; PULSE 86; RESP 18; TEMP 37.1; O2SAT 94; O2SAT 96; BMI 25.8
--- NOTE | 2025-01-31 10:54 | ECG_ITS ---
Test Reason : CHECK PROLONGED QT Blood Pressure : */* mmHG Vent. Rate : 62 BPM Atrial Rate : 62 BPM P-R Int : 184 ms QRS Dur : 86 ms QT Int : 558 ms P-R-T Axes : 12 31 22 degrees QTcB Int : 566 ms Normal sinus rhythm Prolonged QT Abnormal ECG When compared with ECG of 18-Oct-2023 10:35, QT has lengthened Referred By: Alida Bassett Electronically Signed By: Andres Dial
--- NOTE | 2025-01-31 10:54 | ED.GENADULT ---
HPI - General Adult General Chief complaint: Psychiatric Symptoms Stated complaint: PSYCH EVAL,SI NO PLAN PER EMS Time Seen by Provider: 01/31/25 10:38 Source: patient and EMS Mode of arrival: EMS Limitations: no limitations History of Present Illness ED Provider: Alida Bassett PA-C HPI narrative: Patient is a 55 year old assigned female at with a history of cocaine use, MDD, PTSD, and polysubstance use presenting to the emergency department today with suicidal ideation. Patient states that her boyfriend recently and she has been depresse ever since - feeling suicidal. Patient denies any other complaints at this time. Related Data Home Medications ?Medication ?Instructions ?Recorded ?Confirmed methadone 10 mg/mL oral 30 mg PO DAILY 05/21/23 01/31/25 concentrate (Methadose) sertraline 100 mg tablet 200 mg PO DAILY 02/09/24 01/31/25 aripiprazole 5 mg tablet 5 mg PO DAILY 01/31/25 01/31/25 clonazepam 1 mg tablet 1 mg PO BID aniety 01/31/25 01/31/25 docusate sodium 100 mg capsule 100 mg PO DAILY 01/31/25 01/31/25 escitalopram oxalate 5 mg tablet 5 mg PO DAILY 01/31/25 01/31/25 gabapentin 600 mg tablet 300 mg PO BID 01/31/25 01/31/25 methadone 10 mg/mL oral 42 mg PO DAILY@1800 01/31/25 01/31/25 concentrate (Methadone Intensol) propranolol 10 mg tablet 30 mg PO DAILY 01/31/25 01/31/25 propranolol 20 mg tablet 20 mg PO BID 01/31/25 01/31/25 zolpidem 5 mg tablet 5 mg PO BEDTIME PRN Insomnia 01/31/25 01/31/25 Allergies Allergy/AdvReac Type Severity Reaction Status Date / Time trazodone (TRAZODONE) Allergy Severe SHORTNESS Verified 01/31/25 10:54 OF BREATH, GASPING FOR AIR , SOB aspirin (ASPIRIN) Allergy Unknown STOMACH Verified 01/31/25 10:54 UPSET, Nausea, nausa ciprofloxacin (Cipro) Allergy Unknown Rash Verified 01/31/25 10:54 promethazine (Phenergan) Allergy Unknown Hives Verified 01/31/25 10:54 Sulfa (Sulfonamide Allergy Unknown Unknown Verified 01/31/25 10:54 Antibiotics) Review of Systems Constitutional: Constitutional: Reports as per HPI Eyes: Eyes: Reports as per HPI ENT: Reports as per HPI Cardiovascular: Cardiovascular: Reports as per HPI Respiratory: Respiratory: Reports as per HPI Gastrointestinal: Gastrointestinal: Reports as per HPI Genitourinary: Genitourinary: Reports as per HPI Musculoskeletal: Musculoskeletal: Reports as per HPI Integumentary/Breasts: Skin/Breast: Reports as per HPI Neurologic: Reports as per HPI Psychiatric: Psychiatric: Reports as per HPI Endocrine: Endocrine: Reports as per HPI Hematologic/Lymphatic: Hematologic/Lymphatic: Reports as per HPI Allergic/Immunologic: Allergic/Immunologic: Reports as per HPI [facility] Past Medical History Attestation statement: The following information was validated with the patient. Source: old records reviewed and nursing notes reviewed Medical History Cocaine use disorder, moderate, dependence Shortness of breath Chest pain Adjustment disorder with mixed disturbance of emotions and conduct in remission Opioid dependence PTSD (post-traumatic stress disorder) MDD (major depressive disorder), recurrent episode, severe COPD (chronic obstructive pulmonary disease) Asthma Post traumatic stress disorder Major depression, recurrent Family History Family History Unknown No problems noted. 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 If so, by whom?: No Do you feel safe in your current relationship?: No Current Relationship Is there a partner from a previous relationship who is making you feel unsafe now?: No Are you made to feel afraid or neglected: No Spiritual Healthcare Practices: none reported Sikh Healthcare Practices: none reported Cultural Healthcare Practices: none reported Advance Directives: No Advance Directives Information Provided: Yes Advance Directives Date on File: 09/20/20 Do you have a plan to hurt others: No Plan Recently lost weight without trying: Yes How much weight loss: 14-23 pounds Eating poorly because of decreased appetite: Yes Nutrition screen score: 5 Nutrition Risks: No Nutritional Risk Patient : No : No Poor oral hygiene: Yes service: No Current occupational status: disabled Sexual orientation: Straight/Heterosexual Physical Exam ED Vital Signs: Vital Signs - 24 hr 01/31/25 10:49 01/31/25 11:26 01/31/25 18:41 Temperature 98.7 F 97.3 F Pulse Rate 76 76 78 Respiratory Rate 18 18 Blood Pressure 122/77 132/84 Pulse Oximetry 94 98 Oxygen Delivery Method Room Air Room Air BMI result Body Mass Index 25.8 Const General: cooperative, no acute distress, alert and awake Nutritional Appearance: well nourished Orientation/consciousness: patient oriented x3 HENMT Head: Yes normal to inspection and Yes atraumatic Ears: hearing grossly normal bilaterally and external ears normal General nose exam: Normal external nose present, no nasal discharge noted and no epistaxis Face and sinus: Yes normal facial exam, No abrasion and No laceration Mouth: Normal oral and palatal mucosa present, no drooling and no muffled voice Eyes General: appearance normal, both eyes and all related structures Periorbital: periorbital findings normal Eyelids: Yes eyelids normal Conjunctivae: conjunctivae normal Pupils: Equal, round and reactive pupils present EOM: EOMs intact bilaterally Neck Neck: Yes normal visual inspection and Yes full ROM Resp Effort & Inspection: normal respiratory effort and able to speak in complete sentences Neuro General: patient oriented x3, moves all extremities and CN's II-XI intact bilaterally Cranial nerves: Yes Equal, round and reactive pupils present Cognition (Neuro): normal cognition Extrem General: Yes normal to inspection, Yes full ROM and Yes capillary refill normal Psych Appearance: grossly normal Mental Status: mental status grossly normal Affect: Sad affect present Attitude: Guarded attititude/behavior present Thought content: Suicidality present Course Reevaluation(s) Reevaluation #1: Patient received in sign-out at change of shift pending repeat chemistries to evaluate for hypokalemia and a repeat EKG due to prolonged QTC. The patient's QTC has improved but is still slightly prolonged. Her potassium has improved to 3.8, within normal limits. The patient is medically cleared for this time but would use caution with QTC prolonging agents. Time: 19:10 Reevaluation #2: Patient QTC is improving. Repeat EKG shows QTC of 521. I did review patient's EKG from June of last year in October of this year patient's QT is chronically prolonged likely secondary to her psychiatric medicine we will plan to hold on her methadone dose at this time. I did give patient some IV magnesium. She did have finding of hypokalemia which was repleted. Potassium has improved. Patient is medically clear after IV magnesium given. IV magnesium completed. The patient is medically cleared from the ER. Okay to be transferred to inpatient psychiatric floor. Time: 21:27 Medications Administered Generic Name Dose Route Start Last Admin Trade Name Freq PRN Reason Stop Dose Admin Acetaminophen 650 mg 01/31/25 19:32 02/01/25 06:58 Acetaminophen 325 Mg Tablet PO 650 mg Q6H PRN Administration Headache/Pain, Scale 1-10 Al Hydroxide/Mg Hydroxide 30 ml 01/31/25 19:32 01/31/25 20:09 Magnesium Hydrox/Alum Hydrox 30 Ml Oral.Susp PO 30 ml Q6H PRN Administration Heartburn/Nausea Aripiprazole 5 mg 02/01/25 09:00 02/01/25 08:50 Aripiprazole 5 Mg Tablet PO 5 mg DAILY ALICIA Administration Clonazepam 1 mg 01/31/25 19:40 01/31/25 20:09 Clonazepam 1 Mg Tablet PO 1 mg BID PRN Administration severe anxiety Docusate Sodium 100 mg 02/01/25 09:00 02/01/25 08:53 Docusate Sodium 100 Mg Capsule PO Not Given DAILY ALICIA Escitalopram Oxalate 5 mg 02/01/25 09:00 02/01/25 08:50 Escitalopram Oxalate 5 Mg Tablet PO 5 mg DAILY ALICIA Administration Gabapentin 300 mg 01/31/25 21:00 02/01/25 08:49 Gabapentin 300 Mg Capsule PO 300 mg BID ALICIA Administration Melatonin 6 mg 01/31/25 21:00 01/31/25 20:09 Melatonin 3 Mg Tablet PO 6 mg BEDTIME ALICIA Administration Propranolol HCl 30 mg 02/01/25 09:00 02/01/25 09:05 Propranolol Hcl 10 Mg Tablet PO 30 mg DAILY ALICIA Administration Protocol Sertraline HCl 200 mg 02/01/25 09:00 02/01/25 08:49 Sertraline Hcl 100 Mg Tablet PO 200 mg DAILY ALICIA Administration Discontinued Medications Generic Name Dose Route Start Last Admin Trade Name Ariel PRN Reason Stop Dose Admin Magnesium Sulfate 2 gm in 50 mls @ 50 mls/hr 01/31/25 20:10 01/31/25 21:14 Magnesium Sulfate/H2o IV 01/31/25 21:09 Infused ONCE ONE Infusion Magnesium Oxide 800 mg 01/31/25 12:36 01/31/25 14:46 Magnesium Oxide 400 Mg Tablet PO 01/31/25 12:37 800 mg ONCE ONE Administration Potassium Chloride 40 meq 01/31/25 13:19 01/31/25 14:49 Potassium Chloride Er 20 Meq Tab.Er.Prt PO 01/31/25 13:20 40 meq ONCE ONE Administration Potassium Chloride 40 meq 01/31/25 13:59 01/31/25 14:46 Potassium Chloride Packet 20 Meq Packet PO 01/31/25 14:00 40 meq ONCE ONE Administration Medical Decision Making Medical Decision Making [facility] Narrative: Patient is a 55 year old assigned female at with a history of cocaine use, MDD, PTSD, and polysubstance use presenting to the emergency department today with suicidal ideation. Patient's physical exam was as noted in the physical exam portion of this note. Patient's blood work showed a potassium of 3.2 but otherwise unremarkable. Patient's urine showed no acute infection. Patient's UDS was positive for methadone, fentanyl, benzos, and cocaine. Patient's EKG showed a QTC of 566 ms. I explained my physical exam findings as well as all test results to the patient. I answered all questions asked by the patient. CARE team evaluated the patient and recommended admission here for inpatient level of psychiatric care. The covering psychiatrist spoke to my attending physician, Dr. Choi, and stated he would not be taking this patient until her QTC decreased to 520 ms or below and her potassium was repleated. Patient was ordered PO magnesium at 1236 and PO potassium at 1319 and 1359. Patient was given the PO medications and the plan is to repeat the BMP and EKG at 6pm. Patient signed out to DINESH Das pending repeat BMP + EKG. If the QTC decreases to 520 ms or below and the potassium is uptrending - patient will be admitted to the psychiatric service. Differential Diagnosis Differential Diagnoses: The differential diagnosis associated with the presentation includes Hypokalemia QT prolongation Methadone use Suicidal ideation Admission/Observation Consideration of admission/observation: Escalation of care including admission/observation considered Patient is going to be admitted to the psychiatric service after her QTC and potassium have corrected. Consult Healthcare Provider Management of the patient was discussed with: Behavioral Health Provider (spoke with the CARE Team as noted in the MDM Rationale portion of this note. ) Lab Data [facility] Lab Attestation statement: I reviewed the patient's lab results. My interpretation of these results are in the MDM Rationale portion of this note. 01/31/25 11:48 02/01/25 07:35 Labs: Lab Results 01/31/25 01/31/25 01/31/25 Range/Units 11:30 11:48 18:03 WBC 8.3 (4.8-10.8) X10*3/uL RBC 4.37 (4.20-5.50) X10*6/uL Hgb 13.3 (12.0-16.0) g/dl Hct 38.9 (37.0-47.0) % MCV 89.0 (80.0-98.0) fL MCH 30.4 (27.0-33.0) pg MCHC 34.2 (31.0-35.0) g/dl RDW 13.2 (11.0-16.0) % Plt Count 238 (160-400) X10*3/uL MPV 12.1 (9.4-12.3) fL Immature Gran % (Auto) 0.4 (0.0-0.4) % Neut % (Auto) 73.0 (45-73) % Lymph % (Auto) 19.4 L (20-40) % [place] % (Auto) 7.0 (2-11) % Eos % (Auto) 0.0 (0-4) % Baso % (Auto) 0.2 (0-2) % Lymph # (Auto) 1.6 (1.2-4.9) X10*3/uL [place] # (Auto) 0.6 (0.1-1.2) X10*3/uL Eos # (Auto) 0.0 (0.0-0.4) X10*3/uL Baso # (Auto) 0.0 (0.0-0.2) X10*3/uL Abs Immat Gran (auto) 0.03 (0.00-0.03) X10*3/uL Absolute Neuts (auto) 6.1 (2.0-8.3) x10*3/uL Absolute Nucleated RBC 0.000 (0.0-0.012) X10*3/uL Nucleated RBC % (auto) 0.0 (0.0-0.2) /100WBC Smear Tech's Comments VERIFIED Sodium 142 144 (135-145) mmol/L Potassium 3.2 L D 3.8 (3.3-5.1) mmol/L Chloride 106 107 (96-108) mmol/L Carbon Dioxide 24 28 (22-29) mmol/L Anion Gap 15 13 (12-20) BUN 21 H 19 H (9-16) mg/dL Creatinine 0.66 0.71 (0.5-1.4) mg/dL Estim Creat Clear Calc 94.7 88.1 Estimated GFR > 60 > 60 Random Glucose 158 H 108 (60-115) mg/dL Calcium 9.7 9.7 (8.4-10.2) mg/dL Magnesium 2.1 (1.6-2.6) mg/dL Total Bilirubin 0.7 (0.0-1.0) mg/dL AST 28 (5-31) U/L ALT 17 (0-31) U/L Alkaline Phosphatase 106 (39-117) U/L Total Protein 7.7 (6.5-8.0) g/dL Albumin 4.5 (3.5-5.0) g/dL Urine Color Yellow Urine Appearance Clear Urine pH 5.5 (5.0-9.0) Ur Specific [place] >= 1.030 H (1.005-1.025) Urine Protein 30 (1+) H (Neg-Trace) mg/dL Urine Glucose (UA) Negative (Negative) mg/dL Urine Ketones 40 (Negative) mg/dL Urine Blood Trace H (Negative) Urine Nitrite Negative (Negative) Ur Leukocyte Esterase Negative (Negative) Urine RBC 0-2 (0-2) /HPF Urine WBC 0-5 (0-5) /HPF Ur Squamous Epith Cells 3-5 (0-2) /HPF Urine Bacteria Trace (None Seen) Hyaline Casts 0-2 (0-2) /LPF Urine Test NEGATIVE (NEGATIVE) Salicylates < 5.0 L (15-30) mg/dL Urine Opiates Screen Not Detected (Not Detect) Ur Buprenorphine Scrn Not Detected (Not Detect) ng/mL Ur Oxycodone Screen Not Detected (Not Detect) ng/mL Urine Methadone Screen Positive H (Not Detect) ng/mL Urine Fentanyl Screen POSITIVE H (Not Detect) Acetaminophen < 3 (<30) mcg/mL Ur Barbiturates Screen Not Detected (Not Detect) Ur Phencyclidine Scrn Not Detected (Not Detect) Ur Amphetamines Screen Not Detected (Not Detect) U Benzodiazepines Scrn POSITIVE H (Not Detect) Urine Cocaine Screen POSITIVE H (Not Detect) U Marijuana (THC) Screen Not Detected (Not Detect) Ethyl Alcohol < 10 mg/dL COVID-19 (SAMANTHA) Negative (Negative) COVID-19 Clin Com See Note Independent Interpretation I performed an independent interpretation of an: EKG Interpretation: I independently interpreted this EKG and am in agreement with the below findings: Vent. Rate: 62 BPM Atrial Rate: 62 BPM P-R Int: 184 ms QRS Dur: 86 ms QT Int: 558 ms P-R-T Axes: 12 31 22 degrees QTcB Int: 566 ms Normal sinus rhythm Prolonged QT When compared with ECG of 18-Oct-2023 10:35, QT has lengthened DD/ 1221 Radiology Impression Discussion of test interpretation with radiology: I have reviewed the radiologist's reading. Critical Care Time Critical Care Time Critical Care Time: Yes Total Critical Care Time: 36 Attestation: I spent 36 minutes of Critical Care Time with this patient. This does not include time spent on separately reported billable procedures. Discharge Plan Discharge Clinical Impression: Suicidal ideation, Prolonged QT interval, Hypokalemia, Polysubstance use disorder Patient Disposition: Admitted As Inpatient Interventions: Admission Worksheet (ED) Last Done: 01/31/25 22:13 Discharge Date/Time: 01/31/25 22:20
[2025-01-31 11:26] VITALS: PULSE 76
[2025-01-31 12:05] LABS: Appearance Urine Clear; Glucose Urine UA Negative (Negative); PH 5.5 (5.0-9.0); Specific Gravity - Urine >= 1.030 (1.005-1.025); UMIC TRIGGER UA YES
--- NOTE | 2025-01-31 12:11 | MHC.CARE ---
Pt meets the criteria for IPLOC secondary to SI with a plan to OD on fentanyl. Section 12a in chart. Provider in agreement.
[2025-01-31 12:12] LABS: UPreg QC Valid YES
[2025-01-31 12:18] LABS: Cannabinoid Screen Urine Not Detected (Not Detect)
[2025-01-31 12:18] LABS: COVID-19 Test Negative (Negative); IDNOW Serial# 152EDE1D
--- NOTE | 2025-01-31 12:18 | HE.PHANOTE ---
RE: METHADONE DOSING Patient takes 30 mg in the morning and 42 mg in the evening @1800. Last dose 30 mg was given on 01/31/25 @0830 with one take home dose of 42 mg per Marija at [facility] [phone].
[2025-01-31 12:20] LABS: Hematocrit 38.9 % (37.0-47.0); Hemoglobin 13.3 g/dl (12.0-16.0); Imm Gran Abs Auto 0.03 X10*3/uL (0.00-0.03); Imm Gran Pct Auto 0.4 % (0.0-0.4); Lymphocytes Absolute Auto 1.6 X10*3/uL (1.2-4.9); MANUAL DIFF FLAG SCAN; Mean Corpuscular HGB Conc 34.2 g/dl (31.0-35.0); Mean Corpuscular Hemoglobin 30.4 pg (27.0-33.0); Mean Corpuscular Volume 89.0 fL (80.0-98.0); NRBC Abs Auto 0.000 X10*3/uL (0.0-0.012); NRBC Pct Auto 0.0 /100WBC (0.0-0.2); PLT CLUMP 1; Red Blood Count 4.37 X10*6/uL (4.20-5.50); SCAN SMEAR FLAG 1; White Blood Count 8.3 X10*3/uL (4.8-10.8)
[2025-01-31 12:24] LABS: Acetaminophen LAB < 3 mcg/mL (<30); Alanine Aminotransferase 17 U/L (0-31); Albumin Level 4.5 g/dL (3.5-5.0); Alkaline Phosphatase 106 U/L (39-117); Anion Gap 15 (12-20); Aspartate Amino Transferase 28 U/L (5-31); Blood Urea Nitrogen 21 mg/dL (9-16); Calcium 9.7 mg/dL (8.4-10.2); Carbon Dioxide 24 mmol/L (22-29); Chloride 106 mmol/L (96-108); Creatinine Clr Calc Pharmacy 94.7; Estimated Glomerular Filt Rate > 60; Potassium 3.2 mmol/L (3.3-5.1); Salicylate < 5.0 mg/dL (15-30); Sodium 142 mmol/L (135-145); Total Protein 7.7 g/dL (6.5-8.0)
[2025-01-31 13:03] LABS: Magnesium 2.1 mg/dL (1.6-2.6); Platelet Count 238 X10*3/uL (160-400)
[2025-01-31] MEDS: Potassium Chloride Packet 20 MEQ PACKET 40 MEQ PO (14:46)
[2025-01-31] MEDS: Potassium Chloride ER 20 MEQ TAB.ER.PRT 40 MEQ PO (14:49)
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
--- OUTSIDE RECORDS SUMMARY | 2025-01-31 14:56 | XMS_ITS | Clinical Summary ---
Author Organization [address] Address [address] [place] [id number] Phone Care Team Providers Care Miscellaneous Machine Operator Name Role Phone Shelley Rendon KUMAR Primary Care Provider [phone] Allergies Active Allergy Reactions Criticality Noted Date Comments Aspirin High 01/02/2016 Ciprofloxacin Rash 01/06/2025 Ciprofloxacin-Hydrocortisone Rash High 016 Ibuprofen High 01/02/2016 Phenergan Plain High 01/02/2016 Trazodone Wheezing 07/14/2016 Medications methadone (DOLOPHINE) 5 mg tablet Take 1.5 Tabs by mouth daily. Pt on tapering dose at methadone clinic 0 Active venlafaxine XR (EFFEXOR-XR) 150 mg 24 hr capsule Take 1 Cap by mouth daily. Prescribed by provider 0 Active QUEtiapine (SEROquel) 200 mg tablet Take 1 Tab by mouth at bedtime. Active QUEtiapine (SEROquel) 25 mg tablet Take 1 Tab by mouth 2 times daily as needed. Active clonazePAM (KlonoPIN) 0.5 mg tablet Take 1 Tab by mouth daily as needed. Active clonazePAM (KlonoPIN) 1 mg tablet Take 1 Tab by mouth at bedtime. 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 Emergency [address] [place] [address] Chest pain with low risk for cardiac etiology (Primary Dx); Acute anxiety; Cocaine use Discharge Disposition: Home or Self Care from Last 3 Months Immunizations Name Administration Dates Next Due Hepatitis A-Hepatitis B Adult (Twinrix) 18yo and older 08/17/2018 Surgical History Surgery Date Site/Laterality Comments TUBAL LIGATION PROCEDURE: HISTORICAL TUBAL LIGATION OTHER SURGICAL HISTORY PROCEDURE: HISTORICAL PELVISCOPY BLADDER SUSPENSION PROCEDURE: HISTORICAL BLADDER SUSPENSION Medical History Medical History Date Comments Liver cyst 06/08/2016 DX:Liver cyst Cigarette smoker 06/08/2016 DX:Cigarette sm oker Major depression 06/08/2016 DX:Major depres [place]adwick; COMMENT: F/u clinical support options 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 DX:Methadone maintenance therapy patient (HCC) History of heroin use 06/08/2016 DX:History of heroin use Hyperlipidemia 06/16/2016 DX:Hyperlipidemi a Suicide attempt (CMS/HCC V24 , CMS/HCC V28) 12/18/2016 DX:Suicide attempt (HCC); CO MMENT: 12/15/16 OD seroquel and flexeril Cocaine use 05/25/2018 DX:Cocaine use Chronic hepatitis C (CMS/HCC V24, [facility]/HCC V28) DX:Chronic hepatitis C (HCC) Family History Medical History Relation Name Comments Lung cancer Father Ovarian cancer Maternal Grandmother Uterine cancer Mother's side aunts x2 Prostate cancer Paternal Grandfather Relation Name Status Comments Father Maternal Grandmother Mother's side Paternal Grandfather Social History Tobacco Use Types Packs/Day Years Used Date Smoking Tobacco: Every Day Cigarettes 0.5 45 Started: 01/25/1980 Smokeless Tobacco: Never Alcohol Use Standard Drinks/Week Comments Yes 0 (1 standard drink = 0.6 oz pur e alcohol) Comments Unknown Sex and Gender Information Value Date Recorded Sex Assigned at Not on file Legal Sex Female 8:57 PM EST Gender Identity Not on file Sexual Orientation Not on file Obstetrics History Last Filed Vital Signs Vital Sign Reading Time Taken Comments Blood Pressure 136/82 01/06/2025 11:28 PM EDT Pulse 73 01/06/2025 11:45 PM EDT Temperature 36.9 C (98.5 F) 01/06/2025 9:14 PM EDT Respiratory Rate 20 01/06/2025 11:28 PM EDT Oxygen Saturation 95% 01/06/2025 11:45 PM EDT Inhaled Oxygen Concentration - - Weight 68 kg (150 lb) 01/06/2025 9:14 PM EDT Height 167.6 cm (5' 6 ) 01/06/2025 9:14 PM EDT Body Mass Index 24.21 01/06/2025 9:14 PM EDT Plan of Treatment Health Maintenance Due Date Last Done Comments Breast Cancer Screening 1970 DTaP,Tdap,and Td Vaccines (1 - Tdap) 1989 Pneumococcal Vaccine: 50+ Years (1 of 2 - PCV) 1989 Hepatitis A Vaccines (2 of 3 - Hep A Twinrix risk 3-dose series) 09/14/2018 08/17/2018 Hepatitis B Vaccines (2 of 3 - Hep B Twinrix 3-dose series) 09/14/2018 08/17/2018 Cervical Cancer Screening: Pap Smear 01/01/2019 01/02/2016, 01/02/2016 Zoster Vaccines (1 of 2) 01/25/2020 Colorectal Cancer Screening: Colonoscopy 06/04/2023 HIV Screening 06/04/2023 Lung Cancer Screening (Low Dose CT) 06/04/2023 Social Influencers of Health Screening 06/04/2023 Depression Screening 05/10/2024 COVID-19 Vaccine ( season) 2025 Influenza Vaccine (#1) 2025 0, 02/06/2019, 04/05/2017, Additional history exists Cholesterol Screening (Lipid Panel) 07/18/2029 07/18/2024, 04/21/2024 Hepatitis C Screening Completed 08/17/2018 HIB Vaccines Aged Out No longer eligi ble based on patient's age to complete this topic HPV Vaccines Aged Out No longer eligi ble based on patient's age to complete this topic IPV Vaccines Aged Out No longer eligi ble based on patient's age to complete this topic MMR Vaccines Aged Out No longer eligi ble based on patient's age to complete this topic Meningococcal ACWY Vaccine Aged Out N o longer eligible based on patient's age to complete this topic Meningococcal B Vaccine Aged Out No l onger eligible based on patient's age to complete this topic RSV Immunization Patients Under 20 months Aged Out No longer eligible based on patient's age to complete this topic Varicella Vaccines Aged Out No longer eligible based on patient's age to complete this topic Procedures Procedure Name Priority Date/Time Associated Diagnosis Comments ECG ANNOTATED 01/09/2025 TROPONIN I HIGH SENSITIVITY Timed 01/06/2025 10:34 PM EDT ECG 12-LEAD STAT 01/06/2025 9:56 PM EDT XR CHEST 1 VIEW STAT 01/06/2025 9:40 PM EDT CBC WITH AUTO DIFFERENTIAL STAT 01/06/2025 9:33 PM EDT B-TYPE NATRIURETIC PEPTIDE STAT 01/06/2025 9:33 PM EDT MAGNESIUM STAT 01/06/2025 9:33 PM EDT LIPASE STAT 01/06/2025 9:33 PM EDT COMPREHENSIVE METABOLIC PANEL STAT 01/06/2025 9:33 PM EDT CBC AND DIFFERENTIAL STAT 01/06/2025 9:33 PM EDT TROPONIN I HIGH SENSITIVITY Timed 01/06/2025 9:33 PM EDT LIPID PANEL WITH REFLEX TO DIRECT LDL Routine 07/18/2024 10:52 AM EDT Posttraumatic stress disorder HEPATITIS C SCREENING Routine 08/17/2018 HPV Routine 01/02/2016 from Last 3 Months or Most Recently Relevant to Health Maintenance Results * ECG-Annotated (01/09/2025) us Provider Onbase MD ECG ORDERABLES Final Result * Troponin I high sensitivity (01/06/2025 10:34 PM EDT) Only the most recent of2 resultswithin the time period is included. [facility] High Sensitivity Troponin I 21 <=54 ng/L LAB CHEMISTRY METHOD 01/06/2025 11:22 PM EDT [facility] Blood Venous blood specimen / Unknown Venipuncture / Unknown 01/06/2025 10:34 PM EDT 01/06/2025 10:50 PM EDT Narrative [facility] - 01/06/2025 11:22 PM EDT High levels of biotin in samples may falsely decrease hsTroponin values. Use caution when interpreting hsTroponin results in patients taking biotin who exhibit renal impairment (eGFR <60) or in patients taking more than 20 mg/day of biotin. Adam Eduardo MD LAB BLOOD ORDERABLES Final Resu lt [facility] [address] [place] [address], * ECG 12 lead (01/06/2025 9:56 PM EDT) [facility] Ventricular Rate ECG 80 BPM GEMUSE Atrial Rate 80 BPM GEMUSE P-R Interval 134 ms GEMUSE QRS Duration 82 ms GEMUSE Q-T Interval 432 ms GEMUSE QTc 498 ms GEMUSE P Wave Barre -25 degrees GEMUSE R Barre 15 degrees GEMUSE T Barre 29 degrees GEMUSE ECG Interpretation Normal sinus rhythm Nonspecific T wave abnormality Statement not found (#1146) Abnormal ECG When compared with ECG of 21-APR-2024 11:22, No significant change was found Confirmed by Keith SERRANO JAMES ([id number]) on 01/07/2025 3:37:17 PM GEMUSE 01/06/2025 9:56 PM EDT 01/07/2025 3:37 PM EDT us Adam Eduardo MD ECG ORDERABLES Final Result GEMUSE * XR Chest 1 View (01/06/2025 9:40 PM EDT) Anatomical Region Laterality Modality Body Radiographic Yris ging 01/07/2025 7:22 AM EDT Impressions 01/07/2025 7:23 AM EDT No pneumonia or edema. -------- FINAL REPORT -------- Dictated By: Elias Reynolds Dictated Date: 01/07/2025 07:22 ET Assigned Physician: Elias Reynolds Reviewed and Electronically Signed By: Elias Reynolds Signed Date: 01/07/2025 07:23 ET Workstation ID: [id number] Transcribed By: Self Edit Transcribed Date: 01/07/2025 07:22 ET Narrative 01/07/2025 7:23 AM EDT EXAMINATION: CHEST CLINICAL INFORMATION: Chest pain COMPARISON: None. TECHNIQUE: Portable upright frontal view of the chest FINDINGS: Cardiac size within normal limits. No mediastinal or hilar mass. The vasculature is normal. There is no consolidation or major zone of atelectasis. The visualized pleural margins are within normal limits. No suspicious focal bony lesion. Procedure Note Elias Reynolds MD - 01/07/2025 EXAMINATION: CHEST CLINICAL INFORMATION: Chest pain COMPARISON: None. TECHNIQUE: Portable upright frontal view of the chest FINDINGS: Cardiac size within normal limits. No mediastinal or hilar mass. Thevasculature is normal. There is no consolidation or major zone ofatelectasis. The visualized pleural margins are within normal limits. No suspicious focal bony lesion. IMPRESSION: No pneumonia or edema. -------- FINAL REPORT -------- Dictated By: Elias Reynolds Dictated Date: 01/07/2025 07:22 ET Assigned Physician: Elias Reynolds Reviewed and Electronically Signed By: Elias Reynolds Signed Date: 01/07/2025 07:23 ET Workstation ID: [id number] Transcribed By: Self Edit Transcribed Date: 01/07/2025 07:22 ET Adam Eduardo MD IMG XR PROCEDURES Final Result * (ABNORMAL) CBC auto differential (01/06/2025 9:33 PM EDT) WBC 13.4(H) 4.8 - 10.8 K/mcL LAB HEMETOLOGY METHOD 01/06/2025 10:12 PM EDT [facility] RBC 4.40 3.80 - 4.80 M/mcL LAB HEMETOLOGY METHOD 01/06/2025 10:12 PM EDT [facility] Hemoglobin 13.1 11.5 - 16.0 g/dL LAB HEMETOLOGY METHOD 01/06/2025 10:12 PM EDT [facility] Hematocrit 39.9 35.0 - 47.0 % LAB HEMETOLOGY METHOD 01/06/2025 10:12 PM EDT [facility] MCV 91.7 79.0 - 98.0 FL LAB HEMETOLOGY METHOD 01/06/2025 10:12 PM EDT [facility] MCH 30.1 27.0 - 32.0 pcg LAB HEMETOLOGY METHOD 01/06/2025 10:12 PM EDT [facility] MCHC 32.8 32.0 - 37.0 g/dL LAB HEMETOLOGY METHOD 01/06/2025 10:12 PM EDT [facility] RDW 13.5 11.0 - 15.0 % LAB HEMETOLOGY METHOD 01/06/2025 10:12 PM EDT [facility] Platelets 268 130 - 400 K/mcL LAB HEMETOLOGY METHOD 01/06/2025 10:12 PM EDT [facility] MPV 12.6(H) 7.0 - 11.0 FL LAB HEMETOLOGY METHOD 01/06/2025 10:12 PM EDT [facility] NRBC 0.0 <1.0 % LAB HEMETOLOGY METHOD 01/06/2025 10:12 PM [facility] NRBC Absolute 0.00 <0.10 K/mcL LAB HEMETOLOGY METHOD 01/06/2025 10:12 PM [facility] Neutrophils Relative 72.0 % LAB HEMETOLOGY METHOD 01/06/2025 10:12 PM [facility] Lymphocytes Relative 15.1 % LAB HEMETOLOGY METHOD 01/06/2025 10:12 PM [facility] Monocytes Relative 11.8 % LAB HEMETOLOGY METHOD 01/06/2025 10:12 PM [facility] Eosinophils Relative 0.5 % LAB HEMETOLOGY METHOD 01/06/2025 10:12 PM [facility] Basophils Relative 0.2 % LAB HEMETOLOGY METHOD 01/06/2025 10:12 PM [facility] Immature Granulocytes Relative 0.4 % LAB HEMETOLOGY METHOD 01/06/2025 10:12 PM [facility] Neutrophils Absolute 9.66(H) 1.50 - 7.00 K/mcL LAB HEMETOLOGY METHOD 01/06/2025 10:12 PM [facility] Lymphocytes Absolute 2.02 1.00 - 5.00 K/mcL LAB HEMETOLOGY METHOD 01/06/2025 10:12 PM [facility] Monocytes Absolute 1.58(H) 0.20 - 1.00 K/mcL LAB HEMETOLOGY METHOD 01/06/2025 10:12 PM [facility] Eosinophils Absolute 0.07 0.00 - 0.50 K/mcL LAB HEMETOLOGY METHOD 01/06/2025 10:12 PM [facility] Basophils Absolute 0.03 0.00 - 0.20 K/[facility] LAB HEMETOLOGY METHOD 01/06/2025 10:12 PM EDT [facility] Immature Granulocytes Absolute 0.05(H) 0.00 - 0.03 K/[facility] LAB HEMETOLOGY METHOD 01/06/2025 10:12 PM EDT [facility] Blood Venous blood specimen / Unknown Venipuncture / Unknown 01/06/2025 9:33 PM EDT 01/06/2025 10:07 PM EDT us Adam Eduardo MD LAB BLOOD ORDERABLES Final Resu lt Performing Organization Address [facility]/ZIP Co de Phone Number [facility] [address] [place] [address], [place] [phone] * (ABNORMAL) B-type natriuretic peptide (01/06/2025 9:33 PM EDT) BNP 126(H) <=100 pcg/mL LAB CHEMISTRY METHOD 01/06/2025 10:48 PM EDT [facility] Blood Venous blood specimen / Unknown Venipuncture / Unknown 01/06/2025 9:33 PM EDT 01/06/2025 10:07 PM EDT us Adam Eduardo MD LAB BLOOD ORDERABLES Final Resu lt Performing Organization Address City/[facility]/ZIP Co de Phone Number [facility] [address] [place] [address], [place] [phone] * Magnesium (01/06/2025 9:33 PM EDT) Magnesium 2.2 1.9 - 2.6 mg/dL LAB CHEMISTRY METHOD 01/06/2025 10:34 PM EDT [facility] Comment:Hemolysis present Blood Venous blood specimen / Unknown Venipuncture / Unknown 01/06/2025 9:33 PM EDT 01/06/2025 10:07 PM EDT us Adam Eduardo MD LAB BLOOD ORDERABLES Final Resu lt Performing Organization Address City/[facility]/ZIP Co de Phone Number [facility] [address] [place] [address], [place] [phone] * (ABNORMAL) Lipase (01/06/2025 9:33 PM EDT) [facility] Lipase 12(L) 13 - 75 unit/L LAB CHEMISTRY METHOD 01/06/2025 10:34 PM EDT [facility] Blood Venous blood specimen / Unknown Venipuncture / Unknown 01/06/2025 9:33 PM EDT 01/06/2025 10:07 PM EDT Adam Eduardo MD LAB BLOOD ORDERABLES Final Resu lt Performing Organization Address [facility] Co de Phone Number [facility] [address] [place] [address], [place] [phone] * (ABNORMAL) Comprehensive metabolic panel (01/06/2025 9:33 PM EDT) [facility] Sodium 138 133 - 145 mmol/L LAB CHEMISTRY METHOD 01/06/2025 10:34 PM EDT [facility] Potassium 3.6 3.5 - 5.5 mmol/L LAB CHEMISTRY METHOD 01/06/2025 10:34 PM EDT [facility] Comment:Hemolysis present Chloride 103 96 - 110 mmol/L LAB CHEMISTRY METHOD 01/06/2025 10:34 PM EDT [facility] CO2 26 21 - 32 mmol/L LAB CHEMISTRY METHOD 01/06/2025 10:34 PM EDT [facility] Anion Gap 9 3 - 11 LAB CHEMISTRY METHOD 01/06/2025 10:34 PM EDT [facility] Glucose 118(H) 70 - 100 mg/dL LAB CHEMISTRY METHOD 01/06/2025 10:34 PM [facility] BUN 25 5 - 25 mg/dL LAB CHEMISTRY METHOD 01/06/2025 10:34 PM [facility] Creatinine 0.90 0.50 - 1.10 mg/dL LAB CHEMISTRY METHOD 01/06/2025 10:34 PM [facility] eGFR 76 >=60 mL/min/1. 73m2 LAB CHEMISTRY METHOD 01/06/2025 10:34 PM [facility] Comment:Calculation based on the Chronic Kidney Disease Epidemiology Collaboration (CKD-EPI) equation refit without adjustment for race. BUN/Creatinine Ratio 27.8 LAB CHEMISTRY METHOD 01/06/2025 10:34 PM [facility] Calcium 10.0 8.5 - 10.5 mg/dL LAB CHEMISTRY METHOD 01/06/2025 10:34 PM [facility] AST (SGOT) 36 10 - 42 unit/L LAB CHEMISTRY METHOD 01/06/2025 10:34 PM [facility] Comment:Hemolysis present ALT (SGPT) 33 10 - 60 unit/L LAB CHEMISTRY METHOD 01/06/2025 10:34 PM [facility] Alkaline Phosphatase 124(H) 42 - 121 unit/L LAB CHEMISTRY METHOD 01/06/2025 10:34 PM [facility] Total Protein 7.9 6.0 - 8.0 g/dL LAB CHEMISTRY METHOD 01/06/2025 10:34 PM [facility] Albumin 4.3 3.2 - 5.0 g/dL LAB CHEMISTRY METHOD 01/06/2025 10:34 PM [facility] Total Bilirubin 1.0 0.0 - 1.4 mg/dL LAB CHEMISTRY METHOD 01/06/2025 10:34 PM [facility] Blood Venous blood specimen / Unknown Venipuncture / Unknown 01/06/2025 9:33 PM EDT 01/06/2025 10:07 PM EDT us Adam Eduardo MD LAB BLOOD ORDERABLES Final Resu lt [facility] [address] [place] [address], [place] [phone] * (ABNORMAL) Lipid panel with reflex to direct LDL (07/18/2024 10:52 AM EDT) [facility] Signature Cholesterol 262(H) 0 - 200 mg/dL LAB CHEMISTRY METHOD 07/18/2024 12:06 PM EDT [facility] Triglycerides 129 0 - 150 mg/dL LAB CHEMISTRY METHOD 07/18/2024 12:06 PM EDT [facility] HDL 48 >=40 mg/dL LAB CHEMISTRY METHOD 07/18/2024 12:06 PM EDT [facility] LDL Calculated 188(H) 0 - 100 mg/dL LAB CHEMISTRY METHOD 07/18/2024 12:06 PM EDT [facility] VLDL Cholesterol Lawrence 25.8 mg/dL LAB CHEMISTRY METHOD 07/18/2024 12:06 PM EDT [facility] Non HDL Chol. (LDL+VLDL) 214(H) <145 mg/dL LAB CHEMISTRY METHOD 07/18/2024 12:06 PM EDT [facility] Chol/HDL Ratio 5.5(H) 0.0 - 4.4 LAB CHEMISTRY METHOD 07/18/2024 12:06 PM EDT [facility] Blood Venous blood specimen / Unknown Venipuncture / Unknown 07/18/2024 10:52 AM EDT 07/18/2024 11:08 AM EDT us Shelley HEATH LAB BLOOD ORDERABLES Final Re sult Performing Organization Address City/[facility]/ZIP Co de Phone Number [facility] [address] [place] [address], [place] [phone] * Hm Hepatitis C Screening (08/17/2018) Hepatitis C Screening Abstracted Historical Provider HEALTH MAINTENANCE Final Result * Cervical Cancer Screening: HPV (01/02/2016) Cervical Cancer Screening: HPV Abnormal, Abstracted Historical Provider HEALTH MAINTENANCE Final Result from Last 3 Months or Most Recently Relevant to Health Maintenance [place] [address] [place] [address] [employer]ICA[employer] - [place] Care Teams Miscellaneous Machine Operator Relationship Specialty Start Date End Date [place] [phone] PCP - General Family Medicine 07/18/24
--- NOTE | 2025-01-31 16:00 | ECG_ITS ---
Test Reason : PROLONG QT Blood Pressure : */* mmHG Vent. Rate : 62 BPM Atrial Rate : 62 BPM P-R Int : 180 ms QRS Dur : 80 ms QT Int : 514 ms P-R-T Axes : 8 22 17 degrees QTcB Int : 521 ms Normal sinus rhythm Prolonged QT Abnormal ECG When compared with ECG of 31-Jan-2025 12:21, No significant change was found Referred By: Alida Bassett Electronically Signed By: Andres Dial
[2025-01-31 18:37] LABS: Anion Gap 13 (12-20); Blood Urea Nitrogen 19 mg/dL (9-16); Calcium 9.7 mg/dL (8.4-10.2); Carbon Dioxide 28 mmol/L (22-29); Chloride 107 mmol/L (96-108); Creatinine Clr Calc Pharmacy 88.1; Estimated Glomerular Filt Rate > 60; Potassium 3.8 mmol/L (3.3-5.1); Sodium 144 mmol/L (135-145)
[2025-01-31 18:41] VITALS: BP 132/84; PULSE 78; RESP 18; TEMP 36.3; O2SAT 98
[2025-01-31] MEDS: Magnesium Hydrox/Alum Hydrox 30 ML ORAL.SUSP PO (20:09)
[2025-01-31] MEDS: Magnesium Sulfate/H2O 2 GM/50 ML PIGGYBACK IV (20:13)
--- NOTE | 2025-01-31 20:25 | PC.NURSE ---
Assumed care of pt at 1900. PT resting quietly in room at the time care was taken over. Report received from BIANCA Moser. Provider concerned regarding pt's continued QTC prolongation aware it is chronic plan for IV supplementation. IV line placed in right wrist. PT tolerated well. IV infusing at this time. 1:1 at bedside for d/t IV use. Plan of care ongoing
--- NOTE | 2025-01-31 21:14 | PC.NURSE ---
IV infusion complete. IV removed. 1:1 sitter discontinued. PT resting quietly respirations even and unlabored. Video monitoring on 15 minute checks remain.
[2025-01-31 23:16] VITALS: BP 106/69; PULSE 88; RESP 16; TEMP 36.8; O2SAT 94; BMI 26.5
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
--- NOTE | 2025-02-01 00:12 | PC.NURSE ---
- pt declined the flu vaccine - menu for tomorrow incomplete: pt able to only fill out her breakfast. requested to fill out lunch and dinner in the morning as she was falling asleep. - pt was not able to write down phone #s due to her phone being . requested to do this in the morning.
--- NOTE | 2025-02-01 06:30 | ECG_ITS ---
Test Reason : qt check Blood Pressure : */* mmHG Vent. Rate : 64 BPM Atrial Rate : 64 BPM P-R Int : 166 ms QRS Dur : 78 ms QT Int : 488 ms P-R-T Axes : 20 21 9 degrees QTcB Int : 503 ms Normal sinus rhythm Prolonged QT Abnormal ECG When compared to the previous EKG of No significant changes seen Referred By: Cookie Aragon Electronically Signed By: Andres Dial
[2025-02-01 07:00] VITALS: BMI 26.3
[2025-02-01 08:00] VITALS: BP 111/56; PULSE 63; RESP 16; TEMP 36.6; O2SAT 97
[2025-02-01 08:29] LABS: Alanine Aminotransferase 21 U/L (0-31); Albumin Level 4.5 g/dL (3.5-5.0); Alkaline Phosphatase 103 U/L (39-117); Anion Gap 13 (12-20); Aspartate Amino Transferase 27 U/L (5-31); Blood Urea Nitrogen 21 mg/dL (9-16); Calcium 9.7 mg/dL (8.4-10.2); Carbon Dioxide 27 mmol/L (22-29); Chloride 109 mmol/L (96-108); Cholesterol 326 mg/dL (<200); Creatinine Clr Calc Pharmacy 84.4; Estimated Glomerular Filt Rate > 60; HDL Cholesterol 49 mg/dL (>40); Potassium 3.9 mmol/L (3.3-5.1); Sodium 145 mmol/L (135-145); Total Protein 7.6 g/dL (6.5-8.0); Triglycerides 158 mg/dL (<150)
--- NOTE | 2025-02-01 08:30 | HO.PM.IMCN ---
History of Present Illness Data of Consult Service Date: 02/01/25 Primary Care Provider: Luke Nagel MD [facility] Reason for consult: Medical management 55-year-old female with a history major depressive disorder, adjustment disorder, QT prolongation, COPD, asthma, PTSD and polysubstance use on methadone presented department with suicidal ideation. In the ED patient was treated for hypokalemia, and noted to have a prolonged QTC. Urinalysis with no active infection. Tox screen was positive for methadone fentanyl benzos and cocaine. EKG demonstrated normal sinus rhythm with initial QTC noted to be 566, improved to 521. This morning QTC is 503. CBC with no leukocytosis, anemia, CMP otherwise unremarkable, magnesium within normal limits, no EtOH. On exam she reports she is feeling symptoms of withdrawal. She has not received for methadone due to prolonged QTC, patient is on split dosing methadone. She has experienced some nausea and some vomiting and anxiety. Denies any shortness of breath, dizziness, lightheadedness or any other concerning symptoms. Review of Systems Review of Systems: Denies any shortness of breath, chest pain, dizziness, lightheadedness, abdominal pain or discomfort, + nausea vomiting, no diarrhea PMFSH Medical History Cocaine use disorder, moderate, dependence Shortness of breath Chest pain Adjustment disorder with mixed disturbance of emotions and conduct in remission Opioid dependence PTSD (post-traumatic stress disorder) MDD (major depressive disorder), recurrent episode, severe COPD (chronic obstructive pulmonary disease) Asthma Post traumatic stress disorder Major depression, recurrent Family History Unknown No problems noted. 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 If so, by whom?: No Do you feel safe in your current relationship?: No Current Relationship Is there a partner from a previous relationship who is making you feel unsafe now?: No Are you made to feel afraid or neglected: No Spiritual Healthcare Practices: none reported [facility] Practices: none reported Cultural Healthcare Practices: none reported Advance Directives: No Advance Directives Information Provided: Yes Advance Directives Date on File: 09/20/20 Do you have thoughts of harming others: None Do you have a plan to hurt others: No Plan Recently lost weight without trying: Yes How much weight loss: 14-23 pounds Eating poorly because of decreased appetite: Yes Nutrition screen score: 5 Nutrition Risks: No Nutritional Risk Patient : No : No Poor oral hygiene: Yes service: No Current occupational status: disabled Sexual orientation: Straight/Heterosexual Meds Allergies Allergy/AdvReac Type Severity Reaction Status Date / Time trazodone (TRAZODONE) Allergy Severe SHORTNESS Verified 01/31/25 10:54 OF BREATH, GASPING FOR AIR , SOB aspirin (ASPIRIN) Allergy Unknown STOMACH Verified 01/31/25 10:54 UPSET, Nausea, nausa ciprofloxacin (Cipro) Allergy Unknown Rash Verified 01/31/25 10:54 promethazine (Phenergan) Allergy Unknown Hives Verified 01/31/25 10:54 Sulfa (Sulfonamide Allergy Unknown Unknown Verified 01/31/25 10:54 Antibiotics) Active Medications: Current Medications Acetaminophen (Acetaminophen 325 Mg Tablet) 650 mg PO Q6H PRN PRN Reason: Headache/Pain, Scale 1-10 Last Admin: 02/01/25 06:58 Dose: 650 mg Al Hydroxide/Mg Hydroxide (Magnesium Hydrox/Alum Hydrox 30 Ml Oral.Susp) 30 ml PO Q6H PRN PRN Reason: Heartburn/Nausea Last Admin: 01/31/25 20:09 Dose: 30 ml Aripiprazole (Aripiprazole 5 Mg Tablet) 5 mg PO DAILY ALICIA Clonazepam (Clonazepam 1 Mg Tablet) 1 mg PO BID PRN PRN Reason: severe anxiety Last Admin: 01/31/25 20:09 Dose: 1 mg Docusate Sodium (Docusate Sodium 100 Mg Capsule) 100 mg PO DAILY [facility] Escitalopram Oxalate (Escitalopram Oxalate 5 Mg Tablet) 5 mg PO DAILY [facility] Gabapentin (Gabapentin 300 Mg Capsule) 300 mg PO BID [facility] Last Admin: 01/31/25 20:09 Dose: 300 mg Magnesium Hydroxide (Milk Of Magnesia 30 Ml Oral.Susp) 30 ml PO DAILY PRN PRN Reason: Constipation Melatonin (Melatonin 3 Mg Tablet) 6 mg PO BEDTIME ALICIA Last Admin: 01/31/25 20:09 Dose: 6 mg Nicotine (Nicotine 21 Mg Patch.Td24) 21 mg TRANSDERMA DAILY PRN PRN Reason: nicotine craving Nicotine Polacrilex (Nicotine Polacrilex 2 Mg Gum) 2 mg BUCCAL Q2H PRN PRN Reason: Nicotine Cravings Propranolol HCl (Propranolol Hcl 10 Mg Tablet) 30 mg PO DAILY [facility]; Protocol Sertraline HCl (Sertraline Hcl 100 Mg Tablet) 200 mg PO DAILY [facility] Home Medications ?Medication ?Instructions ?Recorded ?Confirmed ?Last Taken ?Type methadone 10 mg/mL oral 30 mg PO DAILY 05/21/23 01/31/25 01/31/25 History concentrate (Methadose) sertraline 100 mg tablet 200 mg PO DAILY 02/09/24 01/31/25 01/30/25 History aripiprazole 5 mg tablet 5 mg PO DAILY 01/31/25 01/31/25 01/30/25 History clonazepam 1 mg tablet 1 mg PO BID aniety 01/31/25 01/31/25 01/30/25 History docusate sodium 100 mg capsule 100 mg PO DAILY 01/31/25 01/31/25 01/30/25 History escitalopram oxalate 5 mg tablet 5 mg PO DAILY 01/31/25 01/31/25 Unknown History gabapentin 600 mg tablet 300 mg PO BID 01/31/25 01/31/25 01/30/25 History methadone 10 mg/mL oral 42 mg PO DAILY@1800 01/31/25 01/31/25 01/30/25 History concentrate (Methadone Intensol) propranolol 10 mg tablet 30 mg PO DAILY 01/31/25 01/31/25 01/30/25 History propranolol 20 mg tablet 20 mg PO BID 01/31/25 01/31/25 01/30/25 History zolpidem 5 mg tablet 5 mg PO BEDTIME PRN Insomnia 01/31/25 01/31/25 01/30/25 History Physical Exam Vital Signs and Narrative: Vital Signs: Last Vital Signs Temp 97.9 F 02/01/25 08:00 Pulse 63 02/01/25 08:00 Resp 16 02/01/25 08:00 BP 111/56 L 02/01/25 08:00 Pulse Ox 97 02/01/25 08:00 O2 Del Method Room Air 02/01/25 08:00 BMI result Body Mass Index 26.5 CONST: Alert and oriented, in NAD. Well nourished HEENT: Normocephalic, atraumatic, MMM, Eyes clear, Neck supple RESP: Lungs clear, RRR even and regular HEART:,RRR, S1, S2. No edema GI:Abdomen Soft NT, ND. + BS times four :Deferred SKIN: Warm dry and intact, no visible lesions or rashes NEURO:CN II-XII Intact bilaterally, Sensation intact. Speech clear PSYCH: Normal affect Results Labs 01/31/25 11:48 02/01/25 07:35 Labs: Laboratory Results - last 24 hr 01/31/25 01/31/25 01/31/25 11:30 11:48 18:03 MCV 89.0 MCH 30.4 MCHC 34.2 RDW 13.2 Plt Count 238 MPV 12.1 Immature Gran % (Auto) 0.4 Neut % (Auto) 73.0 Lymph % (Auto) 19.4 L [place] % (Auto) 7.0 Eos % (Auto) 0.0 Baso % (Auto) 0.2 Lymph # (Auto) 1.6 [place] # (Auto) 0.6 Eos # (Auto) 0.0 Baso # (Auto) 0.0 Abs Immat Gran (auto) 0.03 Absolute Neuts (auto) 6.1 Absolute Nucleated RBC 0.000 Nucleated RBC % (auto) 0.0 Smear Tech's Comments VERIFIED Anion Gap 15 13 Estim Creat Clear Calc 94.7 88.1 Estimated GFR > 60 > 60 Random Glucose 158 H 108 Calcium 9.7 9.7 Magnesium 2.1 Total Bilirubin 0.7 AST 28 ALT 17 Alkaline Phosphatase 106 Total Protein 7.7 Albumin 4.5 Triglycerides Cholesterol LDL Cholesterol, Calc HDL Cholesterol Urine Color Yellow Urine Appearance Clear Urine pH 5.5 Ur Specific [place] >= 1.030 H Urine Protein 30 (1+) H Urine Glucose (UA) Negative Urine Ketones 40 Urine Blood Trace H Urine Nitrite Negative Ur Leukocyte Esterase Negative Urine RBC 0-2 Urine WBC 0-5 Ur Squamous Epith Cells 3-5 Urine Bacteria Trace Hyaline Casts 0-2 Urine Test NEGATIVE Salicylates < 5.0 L Urine Opiates Screen Not Detected Ur Buprenorphine Scrn Not Detected Ur Oxycodone Screen Not Detected Urine Methadone Screen Positive H Urine Fentanyl Screen POSITIVE H Acetaminophen < 3 Ur Barbiturates Screen Not Detected Ur Phencyclidine Scrn Not Detected Ur Amphetamines Screen Not Detected U Benzodiazepines Scrn POSITIVE H Urine Cocaine Screen POSITIVE H U Marijuana (THC) Screen Not Detected Ethyl Alcohol < 10 COVID-19 (SAMANTHA) Negative COVID-19 Clin Com See Note 02/01/25 07:35 MCV MCH MCHC RDW Plt Count MPV Immature Gran % (Auto) Neut % (Auto) Lymph % (Auto) [place] % (Auto) Eos % (Auto) Baso % (Auto) Lymph # (Auto) [place] # (Auto) Eos # (Auto) Baso # (Auto) Abs Immat Gran (auto) Absolute Neuts (auto) Absolute Nucleated RBC Nucleated RBC % (auto) Smear Tech's Comments Anion Gap 13 Estim Creat Clear Calc 84.4 Estimated GFR > 60 Random Glucose 94 Calcium 9.7 Magnesium Total Bilirubin 0.8 AST 27 ALT 21 Alkaline Phosphatase 103 Total Protein 7.6 Albumin 4.5 Triglycerides 158 H Cholesterol 326 H LDL Cholesterol, Calc 246 H HDL Cholesterol 49 Urine Color Urine Appearance Urine pH Ur Specific [place] Urine Protein Urine Glucose (UA) Urine Ketones Urine Blood Urine Nitrite Ur Leukocyte Esterase Urine RBC Urine WBC Ur Squamous Epith Cells Urine Bacteria Hyaline Casts Urine Test Salicylates Urine Opiates Screen Ur Buprenorphine Scrn Ur Oxycodone Screen Urine Methadone Screen Urine Fentanyl Screen Acetaminophen Ur Barbiturates Screen Ur Phencyclidine Scrn Ur Amphetamines Screen U Benzodiazepines Scrn Urine Cocaine Screen U Marijuana (THC) Screen Ethyl Alcohol COVID-19 (SAMANTHA) COVID-19 Clin Com Assessment and Plan (1) Prolonged QT interval: Status: Acute Plan 55-year-old female with a past medical history of major depressive disorder, adjustment disorder, PTSD, polysubstance use on methadone, SI, QT prolongation, COPD and asthma is admitted to inpatient psych for stabilization. MDD/ adjustment disorder/PTSD/Polysubstance use on methadone/SI Treatment per psychiatric team. QT prolongation Avoid QTC prolongation agents Initial QTC noted to be 566, improved to 521. This morning QTC is 503. COPD, asthma, Stable, not in exacerbation Thank you for allowing me to participate in the care of this patient. Will follow as needed, please notify medical provider with any changes in condition or concerns.
[2025-02-01 08:47] LABS: Free T4 (Free Thyroxine) 1.11 ng/dL (0.71-1.85); Thyroid Stimulating Hormone 3.73 uIU/mL (0.32-4.0)
[2025-02-01 09:00] VITALS: BP 115/69; PULSE 73; RESP 16; TEMP 36.6; O2SAT 95
[2025-02-01 09:05] VITALS: BP 115/69; PULSE 73
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
[2025-02-01] MEDS: methADONE HCl 20 MG/2 ML ORAL.CONC 30 MG PO (09:32)
[2025-02-01] MEDS: methADONE HCl 20 MG/2 ML ORAL.CONC 42 MG PO (17:29)
[2025-02-01 19:45] VITALS: BP 108/54; PULSE 60; RESP 16; TEMP 37; O2SAT 93
[2025-02-02 07:35] VITALS: BP 123/67; PULSE 60; RESP 18; TEMP 36.4; O2SAT 96
[2025-02-02] MEDS: methADONE HCl 20 MG/2 ML ORAL.CONC 30 MG PO (07:59)
[2025-02-02] MEDS: buPROPion HCl XL 150 MG TAB.ER.24H PO (08:09)
--- NOTE | 2025-02-02 09:16 | MHC.CLN ---
CONSULT PATIENT REPORTED 10# RECENT WEIGHT LOSS. DIET RX REGULAR. NO NOTED CONCERNS WITH CURRENT PO INTAKE. REVIEW OF WEIGHT HX SHOWS 02/09/24=79.2 KG. WEIGHT OUT OF USUAL WEIGHT RANGE AND IS HIGHEST WEIGHT X 5 YEARS. USUAL WEIGHT RANGE FROM [id number] 58-65 KG. CURRENT WEIGHT=71.7 KG WITH BMI=26.3 (NORMAL TO OVERWEIGHT). NO ADDITIONAL NUTRITION INTERVENTIONS AT THIS TIME. PLEASE CONSULT RD WITH NUTRITION PROBLEMS OR POOR PO INTAKE.
[2025-02-02] MEDS: Throat Lozenge, Medicated LOZENGE 1 LOZENGE MUCOUS MEM (11:26)
[2025-02-02] MEDS: guaiFENesin LA 600 MG TAB.ER.12H 1200 MG PO ×2 (11:26→20:13)
--- NOTE | 2025-02-02 12:47 | P.PNPSI_ITS ---
Subjective Subjective Date of Service: 02/02/25 Reason For Visit: SI and HI Interim History: c/o URI Sx, prescribed PRNs. feeling fine on current regimen. no complaints or requests otherwise. just feeling under the weather. per staff, taking meds, attending groups. calm, cooperative. no SI/HI. slept 8 hours. Mental Status Exam Mental Status Exam Narrative: Pt is alert and oriented; no PMA/PMR; patient is not in distress; fair hygiene; affect constricted, non-labile; adequate eye contact; Speech is regular rate, loudness, and prosody; thought process is linear and goal directed; mood not assessed; Thought content is not delusional or paranoid; no SI/HI/AVH expressed. There is no evidence of perceptual disturbance. Patients insight and judgment are fair. Diagnostics Vital Signs (24Hr): Vital Signs - 24 hr 02/01/25 19:45 02/02/25 07:35 Temperature 98.6 F 97.5 F Pulse Rate 60 60 Respiratory Rate 16 18 Blood Pressure 108/54 L 123/67 Pulse Oximetry 93 96 Oxygen Delivery Method Room Air Room Air BMI result Body Mass Index 26.3 Labs 01/31/25 11:48 02/01/25 07:35 Labs: Laboratory Results - last 48 hr 01/31/25 01/31/25 02/01/25 11:48 18:03 07:35 WBC 8.3 Plt Count 238 MPV 12.1 Immature Gran % (Auto) 0.4 Neut % (Auto) 73.0 Lymph % (Auto) 19.4 L Sanders % (Auto) 7.0 Eos % (Auto) 0.0 Baso % (Auto) 0.2 Lymph # (Auto) 1.6 Sanders # (Auto) 0.6 Eos # (Auto) 0.0 Baso # (Auto) 0.0 Abs Immat Gran (auto) 0.03 Absolute Neuts (auto) 6.1 Absolute Nucleated RBC 0.000 Nucleated RBC % (auto) 0.0 Smear Tech's Comments VERIFIED Sodium 144 145 Potassium 3.8 3.9 Chloride 107 109 H Carbon Dioxide 28 27 Anion Gap 13 13 BUN 19 H 21 H Creatinine 0.71 0.75 Estim Creat Clear Calc 88.1 84.4 Estimated GFR > 60 > 60 Random Glucose 108 94 Estimat Average Glucose 114 Hemoglobin A1c % 5.6 Calcium 9.7 9.7 Magnesium 2.1 Total Bilirubin 0.8 AST 27 ALT 21 Alkaline Phosphatase 103 Total Protein 7.6 Albumin 4.5 Triglycerides 158 H Cholesterol 326 H LDL Cholesterol, Calc 246 H HDL Cholesterol 49 TSH 3.73 Free T4 1.11 Medications Medications Current Medications Acetaminophen (Acetaminophen 325 Mg Tablet) 650 mg PO Q6H PRN PRN Reason: Headache/Pain, Scale 1-10 Last Admin: 02/02/25 09:48 Dose: 650 mg Al Hydroxide/Mg Hydroxide (Magnesium Hydrox/Alum Hydrox 30 Ml Oral.Susp) 30 ml PO Q6H PRN PRN Reason: Heartburn/Nausea Last Admin: 01/31/25 20:09 Dose: 30 ml Aripiprazole 2 mg/ (Aripiprazole 5 mg) 7 mg PO DAILY [facility] Last Admin: 02/02/25 08:08 Dose: 7 mg Benzocaine (Throat Lozenge, Medicated Lozenge) 1 lozenge MUCOUS MEM Q1H PRN PRN Reason: Sore Throat Last Admin: 02/02/25 11:26 Dose: 1 lozenge Bupropion HCl (Bupropion Hcl Xl 150 Mg Tab.Er.24h) 150 mg PO DAILY [facility] Last Admin: 02/02/25 08:09 Dose: 150 mg Clonazepam (Clonazepam 1 Mg Tablet) 0.75 mg PO BID PRN PRN Reason: severe anxiety Last Admin: 02/01/25 20:50 Dose: 0.75 mg Diphenhydramine HCl (Diphenhydramine Hcl 25 Mg Capsule) 50 mg PO Q8H PRN PRN Reason: congestion Last Admin: 02/02/25 11:26 Dose: 50 mg Docusate Sodium (Docusate Sodium 100 Mg Capsule) 100 mg PO DAILY [facility] Last Admin: 02/02/25 08:10 Dose: Not Given Escitalopram Oxalate (Escitalopram Oxalate 5 Mg Tablet) 5 mg PO DAILY [facility] Last Admin: 02/02/25 08:10 Dose: 5 mg Gabapentin (Gabapentin 300 Mg Capsule) 300 mg PO BID [facility] Last Admin: 02/02/25 08:09 Dose: 300 mg Guaifenesin (Guaifenesin La 600 Mg Tab.Er.12h) 1,200 mg PO BID PRN PRN Reason: Cough Last Admin: 02/02/25 11:26 Dose: 1,200 mg Magnesium Hydroxide (Milk Of Magnesia 30 Ml Oral.Susp) 30 ml PO DAILY PRN PRN Reason: Constipation Melatonin (Melatonin 3 Mg Tablet) 6 mg PO BEDTIME [facility] Last Admin: 02/01/25 21:01 Dose: Not Given Methadone HCl (Methadone Hcl 20 Mg/2 Ml Oral.Conc) 30 mg PO DAILY@0800 [facility] Last Admin: 02/02/25 07:59 Dose: 30 mg Methadone HCl (Methadone Hcl 20 Mg/2 Ml Oral.Conc) 42 mg PO DAILY@1800 [facility] Last Admin: 02/01/25 17:29 Dose: 42 mg Nicotine (Nicotine 21 Mg Patch.Td24) 21 mg TRANSDERMA DAILY PRN PRN Reason: nicotine craving Nicotine Polacrilex (Nicotine Polacrilex 2 Mg Gum) 2 mg BUCCAL Q2H PRN PRN Reason: Nicotine Cravings Propranolol HCl (Propranolol Hcl 20 Mg Tablet) 20 mg PO BID [facility]; Protocol Last Admin: 02/02/25 08:09 Dose: 20 mg Allergies Allergies Allergy/AdvReac Type Severity Reaction Status Date / Time trazodone (TRAZODONE) Allergy Severe SHORTNESS Verified 01/31/25 10:54 OF BREATH, GASPING FOR AIR , SOB aspirin (ASPIRIN) Allergy Unknown STOMACH Verified 01/31/25 10:54 UPSET, Nausea, nausa ciprofloxacin (Cipro) Allergy Unknown Rash Verified 01/31/25 10:54 promethazine (Phenergan) Allergy Unknown Hives Verified 01/31/25 10:54 Sulfa (Sulfonamide Allergy Unknown Unknown Verified 01/31/25 10:54 Antibiotics) Assessment & Plan Assessment & Plan (1) PTSD (post-traumatic stress disorder): Status: Acute Code(s): F43.10 - Post-traumatic stress disorder, unspecified (2) Major depression, recurrent: Status: Acute Code(s): F33.9 - Major depressive disorder, recurrent, unspecified (3) Opioid dependence: Status: Acute Code(s): F11.20 - Opioid dependence, uncomplicated (4) Cocaine use disorder, moderate, dependence: Status: Acute Code(s): F14.20 - Cocaine dependence, uncomplicated Plan 02/01: continue methadone. periodically check QTc. DC zoloft - not on that medication currently. increase abilify from 5 to 7 daily for mood. continue lexapro 5. decrease klonopin to 0.75 per dose. restart wellbutrin 150, increase to 300 after 3 days. counseled abstinence (utox methadone, cocaine, fentanyl, benzo POS). refer for outpt therapy and medications mgmt. Reason for continued inpatient stay Substantial Risk for: inability to function and rapid decompensation Time Spent With Patient Time: Total time managing care of this patient today __25__ minutes.
[2025-02-02] MEDS: methADONE HCl 20 MG/2 ML ORAL.CONC 42 MG PO (17:43)
[2025-02-02 20:00] VITALS: BP 126/73; PULSE 56; RESP 16; TEMP 37.7; O2SAT 94
[2025-02-03 07:39] VITALS: BP 112/59; PULSE 52; RESP 16; TEMP 36.4; O2SAT 97
[2025-02-03] MEDS: methADONE HCl 20 MG/2 ML ORAL.CONC 30 MG PO (08:14)
[2025-02-03 08:15] VITALS: BP 112/65; PULSE 63
[2025-02-03] MEDS: buPROPion HCl XL 150 MG TAB.ER.24H PO (08:18)
[2025-02-03] MEDS: guaiFENesin LA 600 MG TAB.ER.12H 1200 MG PO ×2 (09:22→21:59)
[2025-02-03] MEDS: methADONE HCl 20 MG/2 ML ORAL.CONC 42 MG PO (17:37)
[2025-02-03 19:44] VITALS: BP 115/57; PULSE 50; RESP 16; TEMP 36.9; O2SAT 95
--- NOTE | 2025-02-03 20:24 | HO.PSYCHPN ---
Subjective Subjective Date of Service: 02/03/25 Reason For Visit: SI and HI Interim History: looking better than previous days, fresher, more awake and lively. asking for benadryl for anxiety and also agreeable to increase lexapro to 10. having nightmares, declines prazosin or clonidine. will consider moving forward. per staff, anxious. taking meds. URI Sx. vague SI eves. slept 7 hours. Mental Status Exam Mental Status Exam Narrative: Pt is alert and oriented; no PMA/PMR; patient is not in distress; fair hygiene; affect more flexible, non-labile; adequate eye contact; Speech is regular rate, loudness, and prosody; thought process is linear and goal directed; mood not assessed; Thought content is not delusional or paranoid; no SI/HI/AVH expressed. There is no evidence of perceptual disturbance. Patients insight and judgment are fair. Diagnostics Vital Signs (24Hr): Vital Signs - 24 hr 02/03/25 07:39 02/03/25 08:15 02/03/25 19:44 Temperature 97.5 F 98.4 F Pulse Rate 52 63 50 Respiratory Rate 16 16 Blood Pressure 112/59 L 112/65 115/57 L Pulse Oximetry 97 95 Oxygen Delivery Method Room Air Room Air BMI result Body Mass Index 26.3 Labs 01/31/25 11:48 02/01/25 07:35 Medications Medications Current Medications Acetaminophen (Acetaminophen 325 Mg Tablet) 650 mg PO Q6H PRN PRN Reason: Headache/Pain, Scale 1-10 Last Admin: 02/02/25 20:09 Dose: 650 mg Al Hydroxide/Mg Hydroxide (Magnesium Hydrox/Alum Hydrox 30 Ml Oral.Susp) 30 ml PO Q6H PRN PRN Reason: Heartburn/Nausea Last Admin: 01/31/25 20:09 Dose: 30 ml Aripiprazole 2 mg/ (Aripiprazole 5 mg) 7 mg PO DAILY [facility] Last Admin: 02/03/25 08:19 Dose: 7 mg Benzocaine (Throat Lozenge, Medicated Lozenge) 1 lozenge MUCOUS MEM Q1H PRN PRN Reason: Sore Throat Last Admin: 02/02/25 11:26 Dose: 1 lozenge Bupropion HCl (Bupropion Hcl Xl 150 Mg Tab.Er.24h) 150 mg PO DAILY [facility] Last Admin: 02/03/25 08:18 Dose: 150 mg Clonazepam (Clonazepam 0.5 Mg Tablet) 0.5 mg PO BID PRN PRN Reason: SEVERE ANXIETY Last Admin: 02/03/25 08:24 Dose: 0.5 mg Clonazepam (Clonazepam 0.5 Mg Tablet) 0.25 mg PO BID PRN PRN Reason: SEVERE ANXIETY Last Admin: 02/03/25 08:25 Dose: 0.25 mg Diphenhydramine HCl (Diphenhydramine Hcl 25 Mg Capsule) 50 mg PO Q6H PRN PRN Reason: congestion/anxiety Last Admin: 02/03/25 15:43 Dose: 50 mg Docusate Sodium (Docusate Sodium 100 Mg Capsule) 100 mg PO DAILY [facility] Last Admin: 02/03/25 08:27 Dose: Not Given Escitalopram Oxalate (Escitalopram Oxalate 10 Mg Tablet) 10 mg PO DAILY [facility] Gabapentin (Gabapentin 300 Mg Capsule) 300 mg PO BID [facility] Last Admin: 02/03/25 08:15 Dose: 300 mg Guaifenesin (Guaifenesin La 600 Mg Tab.Er.12h) 1,200 mg PO BID PRN PRN Reason: Cough Last Admin: 02/03/25 09:22 Dose: 1,200 mg Magnesium Hydroxide (Milk Of Magnesia 30 Ml Oral.Susp) 30 ml PO DAILY PRN PRN Reason: Constipation Melatonin (Melatonin 3 Mg Tablet) 6 mg PO BEDTIME [facility] Last Admin: 02/02/25 20:08 Dose: Not Given Methadone HCl (Methadone Hcl 20 Mg/2 Ml Oral.Conc) 30 mg PO DAILY@0800 [facility] Last Admin: 02/03/25 08:14 Dose: 30 mg Methadone HCl (Methadone Hcl 20 Mg/2 Ml Oral.Conc) 42 mg PO DAILY@1800 [facility] Last Admin: 02/03/25 17:37 Dose: 42 mg Nicotine (Nicotine 21 Mg Patch.Td24) 21 mg TRANSDERMA DAILY PRN PRN Reason: nicotine craving Nicotine Polacrilex (Nicotine Polacrilex 2 Mg Gum) 2 mg BUCCAL Q2H PRN PRN Reason: Nicotine Cravings Propranolol HCl (Propranolol Hcl 20 Mg Tablet) 20 mg PO BID [facility]; Protocol Last Admin: 02/03/25 08:15 Dose: 20 mg Allergies Allergies Allergy/AdvReac Type Severity Reaction Status Date / Time trazodone (TRAZODONE) Allergy Severe SHORTNESS Verified 01/31/25 10:54 OF BREATH, GASPING FOR AIR , SOB aspirin (ASPIRIN) Allergy Unknown STOMACH Verified 01/31/25 10:54 UPSET, Nausea, nausa ciprofloxacin (Cipro) Allergy Unknown Rash Verified 01/31/25 10:54 promethazine (Phenergan) Allergy Unknown Hives Verified 01/31/25 10:54 Sulfa (Sulfonamide Allergy Unknown Unknown Verified 01/31/25 10:54 Antibiotics) Assessment & Plan Assessment & Plan (1) PTSD (post-traumatic stress disorder): Status: Acute Code(s): F43.10 - Post-traumatic stress disorder, unspecified (2) Major depression, recurrent: Status: Acute Code(s): F33.9 - Major depressive disorder, recurrent, unspecified (3) Opioid dependence: Status: Acute Code(s): F11.20 - Opioid dependence, uncomplicated (4) Cocaine use disorder, moderate, dependence: Status: Acute Code(s): F14.20 - Cocaine dependence, uncomplicated Plan 02/01: continue methadone. periodically check QTc. DC zoloft - not on that medication currently. increase abilify from 5 to 7 daily for mood. continue lexapro 5. decrease klonopin to 0.75 per dose. restart wellbutrin 150, increase to 300 after 3 days. counseled abstinence (utox methadone, cocaine, fentanyl, benzo POS). refer for outpt therapy and medications mgmt. 02/03: affect improved, more time in milieu. increase lexapro to 10 mg daily. add benadryl 50 PRN anxiety per pt request. otherwise continue current mgmt. Reason for continued inpatient stay Substantial Risk for: inability to function and rapid decompensation Time Spent With Patient Time: Total time managing care of this patient today ____ minutes.
[2025-02-03 22:15] VITALS: BP 111/67; PULSE 73
[2025-02-04] MEDS: methADONE HCl 20 MG/2 ML ORAL.CONC 30 MG PO (07:49)
[2025-02-04 08:00] VITALS: BP 104/64; PULSE 55; RESP 14; TEMP 36.5; O2SAT 95
[2025-02-04 08:08] VITALS: BP 106/64; PULSE 60
[2025-02-04] MEDS: buPROPion HCl XL 150 MG TAB.ER.24H PO (08:08)
--- NOTE | 2025-02-04 16:16 | P.PNPSI_ITS ---
Subjective Subjective Date of Service: 02/04/25 Reason For Visit: SI and HI Interim History: stable presentation. states she had trouble sleeping last night and had nightmares. R/B of prazosin discussed, pt agrees to start 1 mg at HS. per staff, guarded but visible. calm. isolative. anxiety PRNs being requested. dep 8 anx 4. slept 8 hours. Mental Status Exam Mental Status Exam Narrative: Pt is alert and oriented; no PMA/PMR; patient is not in distress; fair hygiene; affect more flexible, non-labile; adequate eye contact; Speech is regular rate, loudness, and prosody; thought process is linear and goal directed; mood not assessed; Thought content is not delusional or paranoid; no SI/HI/AVH expressed. There is no evidence of perceptual disturbance. Patients insight and judgment are fair. Diagnostics Vital Signs (24Hr): Vital Signs - 24 hr 02/03/25 19:44 02/03/25 22:15 02/04/25 08:00 Temperature 98.4 F 97.7 F Pulse Rate 50 73 55 Respiratory Rate 16 14 Blood Pressure 115/57 L 111/67 104/64 Pulse Oximetry 95 95 Oxygen Delivery Method Room Air Room Air 02/04/25 08:08 Temperature Pulse Rate 60 Respiratory Rate Blood Pressure 106/64 Pulse Oximetry Oxygen Delivery Method BMI result Body Mass Index 26.3 Labs 01/31/25 11:48 02/01/25 07:35 Medications Medications Current Medications Acetaminophen (Acetaminophen 325 Mg Tablet) 650 mg PO Q6H PRN PRN Reason: Headache/Pain, Scale 1-10 Last Admin: 02/02/25 20:09 Dose: 650 mg Al Hydroxide/Mg Hydroxide (Magnesium Hydrox/Alum Hydrox 30 Ml Oral.Susp) 30 ml PO Q6H PRN PRN Reason: Heartburn/Nausea Last Admin: 01/31/25 20:09 Dose: 30 ml Aripiprazole 2 mg/ (Aripiprazole 5 mg) 7 mg PO DAILY [facility] Last Admin: 02/04/25 08:09 Dose: 7 mg Benzocaine (Throat Lozenge, Medicated Lozenge) 1 lozenge MUCOUS MEM Q1H PRN PRN Reason: Sore Throat Last Admin: 02/02/25 11:26 Dose: 1 lozenge Bupropion HCl (Bupropion Hcl Xl 150 Mg Tab.Er.24h) 150 mg PO DAILY [facility] Last Admin: 02/04/25 08:08 Dose: 150 mg Clonazepam (Clonazepam 0.5 Mg Tablet) 0.5 mg PO BID PRN PRN Reason: SEVERE ANXIETY Last Admin: 02/04/25 08:08 Dose: 0.5 mg Clonazepam (Clonazepam 0.5 Mg Tablet) 0.25 mg PO BID PRN PRN Reason: SEVERE ANXIETY Last Admin: 02/04/25 08:08 Dose: 0.25 mg Diphenhydramine HCl (Diphenhydramine Hcl 25 Mg Capsule) 50 mg PO Q6H PRN PRN Reason: congestion/anxiety Last Admin: 02/03/25 21:59 Dose: 50 mg Docusate Sodium (Docusate Sodium 100 Mg Capsule) 100 mg PO DAILY [facility] Last Admin: 02/04/25 08:10 Dose: Not Given Escitalopram Oxalate (Escitalopram Oxalate 10 Mg Tablet) 10 mg PO DAILY [facility] Last Admin: 02/04/25 08:09 Dose: 10 mg Gabapentin (Gabapentin 300 Mg Capsule) 300 mg PO BID [facility] Last Admin: 02/04/25 08:08 Dose: 300 mg Guaifenesin (Guaifenesin La 600 Mg Tab.Er.12h) 1,200 mg PO BID PRN PRN Reason: Cough Last Admin: 02/03/25 21:59 Dose: 1,200 mg Magnesium Hydroxide (Milk Of Magnesia 30 Ml Oral.Susp) 30 ml PO DAILY PRN PRN Reason: Constipation Melatonin (Melatonin 3 Mg Tablet) 6 mg PO BEDTIME [facility] Last Admin: 02/03/25 21:55 Dose: Not Given Methadone HCl (Methadone Hcl 20 Mg/2 Ml Oral.Conc) 30 mg PO DAILY@0800 [facility] Last Admin: 02/04/25 07:49 Dose: 30 mg Methadone HCl (Methadone Hcl 20 Mg/2 Ml Oral.Conc) 42 mg PO DAILY@1800 [facility] Last Admin: 02/03/25 17:37 Dose: 42 mg Nicotine (Nicotine 21 Mg Patch.Td24) 21 mg TRANSDERMA DAILY PRN PRN Reason: nicotine craving Nicotine Polacrilex (Nicotine Polacrilex 2 Mg Gum) 2 mg BUCCAL Q2H PRN PRN Reason: Nicotine Cravings Prazosin HCl (Prazosin Hcl 1 Mg Capsule) 1 mg PO BEDTIME [facility]; Protocol Propranolol HCl (Propranolol Hcl 20 Mg Tablet) 20 mg PO BID [facility]; Protocol Last Admin: 02/04/25 08:08 Dose: 20 mg Allergies Allergies Allergy/AdvReac Type Severity Reaction Status Date / Time trazodone (TRAZODONE) Allergy Severe SHORTNESS Verified 01/31/25 10:54 OF BREATH, GASPING FOR AIR , SOB aspirin (ASPIRIN) Allergy Unknown STOMACH Verified 01/31/25 10:54 UPSET, Nausea, nausa ciprofloxacin (Cipro) Allergy Unknown Rash Verified 01/31/25 10:54 promethazine (Phenergan) Allergy Unknown Hives Verified 01/31/25 10:54 Sulfa (Sulfonamide Allergy Unknown Unknown Verified 01/31/25 10:54 Antibiotics) Assessment & Plan Assessment & Plan (1) PTSD (post-traumatic stress disorder): Status: Acute Code(s): F43.10 - Post-traumatic stress disorder, unspecified (2) Major depression, recurrent: Status: Acute Code(s): F33.9 - Major depressive disorder, recurrent, unspecified (3) Opioid dependence: Status: Acute Code(s): F11.20 - Opioid dependence, uncomplicated (4) Cocaine use disorder, moderate, dependence: Status: Acute Code(s): F14.20 - Cocaine dependence, uncomplicated Plan 02/01: continue methadone. periodically check QTc. DC zoloft - not on that medication currently. increase abilify from 5 to 7 daily for mood. continue lexapro 5. decrease klonopin to 0.75 per dose. restart wellbutrin 150, increase to 300 after 3 days. counseled abstinence (utox methadone, cocaine, fentanyl, benzo POS). refer for outpt therapy and medications mgmt. 02/03: affect improved, more time in milieu. increase lexapro to 10 mg daily. add benadryl 50 PRN anxiety per pt request. otherwise continue current mgmt. 02/04: start prazosin 1 mg QHS for nightmares and insomnia in PTSD; titrate as indicated. otherwise continue current mgmt. Reason for continued inpatient stay Substantial Risk for: harm to self, inability to function and rapid decompensation Time Spent With Patient Time: Total time managing care of this patient today ____ minutes.
[2025-02-04] MEDS: methADONE HCl 20 MG/2 ML ORAL.CONC 42 MG PO (17:34)
[2025-02-04 20:30] VITALS: BP 110/68; PULSE 60; RESP 16; TEMP 36.8; O2SAT 98
[2025-02-05] MEDS: methADONE HCl 20 MG/2 ML ORAL.CONC 30 MG PO (07:46)
[2025-02-05] MEDS: buPROPion HCl XL 300 MG TAB.ER.24H PO (07:50)
[2025-02-05 07:55] VITALS: BP 101/60; PULSE 71; RESP 16; TEMP 36.2; O2SAT 93
[2025-02-05 11:42] VITALS: TEMP 36.7
[2025-02-05] MEDS: Oxymetazoline HCl 0.05 % Nasal 15 ML SPRAY 2 SPRAY NOSTRIL-B (11:52)
--- NOTE | 2025-02-05 16:07 | HO.PSYCHPN ---
Subjective Subjective Date of Service: 02/05/25 Reason For Visit: SI and HI Subjective Notes: Conditional Voluntary Interim History: Chart reviewed, case discussed with team, met with pt 1:1. Pt reviewed stressors leading up to this admission, including the murder of her bf and feelings of guilt over being short with him on the phone the last time they spoke. She reports that two men who had fathered her children (one from a drug o/d). Tomorrow is the 15 yr anniversary of her father's . Her mom has end stage COPD and lung ca. She reports that her mom is somewhat supportive but also adds to her stress. Pt is tolerating her current med regimen but hasn't noticed significant improvement from the Abilify or Lexapro titration yet. She always feels anxious. She endorses intermittent passive wish, wanting to be with her ex. Denies active SI. Sleep has been restless at night and she denies any reduction in nightmares from the prazosin 1 mg that was started last night. Agreeable w/ plan to titrate to 2 mg starting tonight. Medication Compliance: Yes Side effects from medications: No Attending Groups: Yes Review of Systems Review of Systems: Nasal congestion, headache. Improved w/ ibuprofen and nasal spray rx'd today Mental Status Exam Mental Status Exam Narrative: Appearance: Casually dressed. Grooming/hygiene wnl. Good eye contact Attitude:Cooperative Speech: Fluent and wnl in regard to volume, tone, prosody Motor activity: Calm and without any tics, tremors or dyskinesias. Steady gait Mood: as noted above Affect: appropriate, reactive Thought process: goal directed and without evidence of formal thought disorder Thought content: as noted above. Perception: does not appear to respond to internal stimuli Alert/oriented in all spheres Cognition grossly intact Insight: intact Judgment: intact Diagnostics Vital Signs (24Hr): Vital Signs - 24 hr 02/04/25 20:30 02/05/25 07:55 02/05/25 11:42 Temperature 98.2 F 97.2 F 98.1 F Pulse Rate 60 71 Respiratory Rate 16 16 Blood Pressure 110/68 101/60 Pulse Oximetry 98 93 Oxygen Delivery Method Room Air Room Air BMI result Body Mass Index 26.3 Labs 01/31/25 11:48 02/01/25 07:35 Medications Medications Current Medications Acetaminophen (Acetaminophen 325 Mg Tablet) 650 mg PO Q6H PRN PRN Reason: Headache/Pain, Scale 1-10 Last Admin: 02/05/25 08:19 Dose: 650 mg Al Hydroxide/Mg Hydroxide (Magnesium Hydrox/Alum Hydrox 30 Ml Oral.Susp) 30 ml PO Q6H PRN PRN Reason: Heartburn/Nausea Last Admin: 01/31/25 20:09 Dose: 30 ml Aripiprazole 2 mg/ (Aripiprazole 5 mg) 7 mg PO DAILY [facility] Last Admin: 02/05/25 07:49 Dose: 7 mg Benzocaine (Throat Lozenge, Medicated Lozenge) 1 lozenge MUCOUS MEM Q1H PRN PRN Reason: Sore Throat Last Admin: 02/02/25 11:26 Dose: 1 lozenge Bupropion HCl (Bupropion Hcl Xl 300 Mg Tab.Er.24h) 300 mg PO DAILY [facility] Last Admin: 02/05/25 07:50 Dose: 300 mg Clonazepam (Clonazepam 0.5 Mg Tablet) 0.5 mg PO BID PRN PRN Reason: SEVERE ANXIETY Last Admin: 02/05/25 07:48 Dose: 0.5 mg Clonazepam (Clonazepam 0.5 Mg Tablet) 0.25 mg PO BID PRN PRN Reason: SEVERE ANXIETY Last Admin: 02/05/25 07:48 Dose: 0.25 mg Diphenhydramine HCl (Diphenhydramine Hcl 25 Mg Capsule) 50 mg PO Q6H PRN PRN Reason: congestion/anxiety Last Admin: 02/05/25 08:18 Dose: 50 mg Docusate Sodium (Docusate Sodium 100 Mg Capsule) 100 mg PO DAILY [facility] Last Admin: 02/05/25 07:50 Dose: Not Given Escitalopram Oxalate (Escitalopram Oxalate 10 Mg Tablet) 10 mg PO DAILY [facility] Last Admin: 02/05/25 07:50 Dose: 10 mg Gabapentin (Gabapentin 300 Mg Capsule) 300 mg PO BID [facility] Last Admin: 02/05/25 07:49 Dose: 300 mg Guaifenesin (Guaifenesin La 600 Mg Tab.Er.12h) 1,200 mg PO BID PRN PRN Reason: Cough Last Admin: 02/03/25 21:59 Dose: 1,200 mg Ibuprofen (Ibuprofen 600 Mg Tablet) 600 mg PO Q6H PRN PRN Reason: Pain, Moderate(Pain Scale 4-6) Last Admin: 02/05/25 12:54 Dose: 600 mg Magnesium Hydroxide (Milk Of Magnesia 30 Ml Oral.Susp) 30 ml PO DAILY PRN PRN Reason: Constipation Melatonin (Melatonin 3 Mg Tablet) 6 mg PO BEDTIME [facility] Last Admin: 02/04/25 20:42 Dose: Not Given Methadone HCl (Methadone Hcl 20 Mg/2 Ml Oral.Conc) 30 mg PO DAILY@0800 [facility] Last Admin: 02/05/25 07:46 Dose: 30 mg Methadone HCl (Methadone Hcl 20 Mg/2 Ml Oral.Conc) 42 mg PO DAILY@1800 [facility] Last Admin: 02/04/25 17:34 Dose: 42 mg Nicotine (Nicotine 21 Mg Patch.Td24) 21 mg TRANSDERMA DAILY PRN PRN Reason: nicotine craving Nicotine Polacrilex (Nicotine Polacrilex 2 Mg Gum) 2 mg BUCCAL Q2H PRN PRN Reason: Nicotine Cravings Oxymetazoline HCl (Oxymetazoline Hcl 0.05 % Nasal 15 Ml [place]) 2 spray NOSTRIL-B BID PRN PRN Reason: Nasal Congestion Stop: 02/08/25 11:28 Last Admin: 02/05/25 11:52 Dose: 2 spray Prazosin HCl (Prazosin Hcl 1 Mg Capsule) 1 mg PO BEDTIME [facility]; Protocol Last Admin: 02/04/25 20:40 Dose: 1 mg Propranolol HCl (Propranolol Hcl 20 Mg Tablet) 20 mg PO BID [facility]; Protocol Last Admin: 02/05/25 07:50 Dose: 20 mg Allergies Allergies Allergy/AdvReac Type Severity Reaction Status Date / Time trazodone (TRAZODONE) Allergy Severe SHORTNESS Verified 01/31/25 10:54 OF BREATH, GASPING FOR AIR , SOB aspirin (ASPIRIN) Allergy Unknown STOMACH Verified 01/31/25 10:54 UPSET, Nausea, nausa ciprofloxacin (Cipro) Allergy Unknown Rash Verified 01/31/25 10:54 promethazine (Phenergan) Allergy Unknown Hives Verified 01/31/25 10:54 Sulfa (Sulfonamide Allergy Unknown Unknown Verified 01/31/25 10:54 Antibiotics) Assessment & Plan Assessment & Plan (1) PTSD (post-traumatic stress disorder): Status: Acute Code(s): F43.10 - Post-traumatic stress disorder, unspecified (2) Major depression, recurrent: Status: Acute Code(s): F33.9 - Major depressive disorder, recurrent, unspecified (3) Opioid dependence: Status: Acute Code(s): F11.20 - Opioid dependence, uncomplicated (4) Cocaine use disorder, moderate, dependence: Status: Acute Code(s): F14.20 - Cocaine dependence, uncomplicated Plan 02/01: continue methadone. periodically check QTc. DC zoloft - not on that medication currently. increase abilify from 5 to 7 daily for mood. continue lexapro 5. decrease klonopin to 0.75 per dose. restart wellbutrin 150, increase to 300 after 3 days. counseled abstinence (utox methadone, cocaine, fentanyl, benzo POS). refer for outpt therapy and medications mgmt. 02/03: affect improved, more time in milieu. increase lexapro to 10 mg daily. add benadryl 50 PRN anxiety per pt request. otherwise continue current mgmt. 02/04: start prazosin 1 mg QHS for nightmares and insomnia in PTSD; titrate as indicated. otherwise continue current mgmt. 02/05: Titrate prazosin to 2 mg qhs for nightmares/insomnia off-label. Otherwise continue current med regimen/tx plan Patient educated on: medication risk/benefits and therapeutic strategies Informed Consent: understands Reason for continued inpatient stay Substantial Risk for: harm to self and med/psych decompensation Time Spent With Patient Time: Total time managing care of this patient today _30___ minutes.
[2025-02-05] MEDS: methADONE HCl 20 MG/2 ML ORAL.CONC 42 MG PO (18:15)
[2025-02-05 20:00] VITALS: BP 100/53; PULSE 59; RESP 17; TEMP 37; O2SAT 96
[2025-02-05 21:06] VITALS: BP 102/60
[2025-02-05 21:27] VITALS: BP 102/60; PULSE 58
[2025-02-06 07:48] VITALS: BP 99/70; PULSE 65; RESP 18; TEMP 36.4; O2SAT 96
[2025-02-06] MEDS: methADONE HCl 20 MG/2 ML ORAL.CONC 30 MG PO (07:54)
[2025-02-06] MEDS: buPROPion HCl XL 300 MG TAB.ER.24H PO (08:00)
[2025-02-06] MEDS: methADONE HCl 20 MG/2 ML ORAL.CONC 42 MG PO (18:20)
--- NOTE | 2025-02-06 20:27 | HO.PSYCHPN ---
Subjective Subjective Date of Service: 02/06/25 Reason For Visit: SI and HI Subjective Notes: Conditional Voluntary Interim History: chart reviewed, case discussed in team. Met with pt in interview room Pt reports feeling more depressed/anxious today. Denies SI today but wonders what it would be like if she . Today is the anniversary of her father's . Pt continues to experience vivid nightmares,which contribute to restless sleep. Denies any +/- effects from prazosin thus far. Agrees w/ my recs to titrate to 3 mg tonight. Discussed options for tx of anxiety. Pt feels like Benadryl is more effective than Vistaril. She's noticed partial benefit from gabapentin 300 mg bid and denies excessive sedation or other SE Nasal congestion & PEDRAZA improved. Medication Compliance: Yes Side effects from medications: No Mental Status Exam Mental Status Exam Narrative: Appearance: Casually dressed. Grooming/hygiene wnl. Good eye contact Attitude:Cooperative Speech: Fluent and wnl in regard to volume, tone, prosody Motor activity: Calm and without any tics, tremors or dyskinesias. Steady gait Mood: as noted above Affect: appropriate, reactive Thought process: goal directed and without evidence of formal thought disorder Thought content: as noted above. Perception: does not appear to respond to internal stimuli Alert/oriented in all spheres Cognition grossly intact Insight: fair Judgment: intact Diagnostics Vital Signs (24Hr): Vital Signs - 24 hr 02/05/25 21:06 02/05/25 21:27 02/06/25 07:48 Temperature 97.6 F Pulse Rate 58 65 Respiratory Rate 18 Blood Pressure 102/60 102/60 99/70 Pulse Oximetry 96 Oxygen Delivery Method Room Air BMI result Body Mass Index 26.3 Labs 01/31/25 11:48 02/01/25 07:35 Medications Medications Current Medications Acetaminophen (Acetaminophen 325 Mg Tablet) 650 mg PO Q6H PRN PRN Reason: Headache/Pain, Scale 1-10 Last Admin: 02/05/25 08:19 Dose: 650 mg Al Hydroxide/Mg Hydroxide (Magnesium Hydrox/Alum Hydrox 30 Ml Oral.Susp) 30 ml PO Q6H PRN PRN Reason: Heartburn/Nausea Last Admin: 01/31/25 20:09 Dose: 30 ml Aripiprazole 2 mg/ (Aripiprazole 5 mg) 7 mg PO DAILY [facility] Last Admin: 02/06/25 07:59 Dose: 7 mg Benzocaine (Throat Lozenge, Medicated Lozenge) 1 lozenge MUCOUS MEM Q1H PRN PRN Reason: Sore Throat Last Admin: 02/02/25 11:26 Dose: 1 lozenge Bupropion HCl (Bupropion Hcl Xl 300 Mg Tab.Er.24h) 300 mg PO DAILY [facility] Last Admin: 02/06/25 08:00 Dose: 300 mg Clonazepam (Clonazepam 0.5 Mg Tablet) 0.5 mg PO BID PRN PRN Reason: SEVERE ANXIETY Last Admin: 02/05/25 21:05 Dose: 0.5 mg Clonazepam (Clonazepam 0.5 Mg Tablet) 0.25 mg PO BID PRN PRN Reason: SEVERE ANXIETY Last Admin: 02/05/25 21:06 Dose: 0.25 mg Diphenhydramine HCl (Diphenhydramine Hcl 25 Mg Capsule) 50 mg PO Q6H PRN PRN Reason: congestion/anxiety Last Admin: 02/06/25 12:17 Dose: 50 mg Docusate Sodium (Docusate Sodium 100 Mg Capsule) 100 mg PO DAILY [facility] Last Admin: 02/06/25 08:00 Dose: Not Given Escitalopram Oxalate (Escitalopram Oxalate 10 Mg Tablet) 10 mg PO DAILY [facility] Last Admin: 02/06/25 07:59 Dose: 10 mg Gabapentin (Gabapentin 300 Mg Capsule) 300 mg PO TID [facility] Guaifenesin (Guaifenesin La 600 Mg Tab.Er.12h) 1,200 mg PO BID PRN PRN Reason: Cough Last Admin: 02/03/25 21:59 Dose: 1,200 mg Ibuprofen (Ibuprofen 600 Mg Tablet) 600 mg PO Q6H PRN PRN Reason: Pain, Moderate(Pain Scale 4-6) Last Admin: 02/05/25 12:54 Dose: 600 mg Magnesium Hydroxide (Milk Of Magnesia 30 Ml Oral.Susp) 30 ml PO DAILY PRN PRN Reason: Constipation Melatonin (Melatonin 3 Mg Tablet) 6 mg PO BEDTIME [facility] Last Admin: 02/05/25 22:14 Dose: Not Given Methadone HCl (Methadone Hcl 20 Mg/2 Ml Oral.Conc) 30 mg PO DAILY@0800 [facility] Last Admin: 02/06/25 07:54 Dose: 30 mg Methadone HCl (Methadone Hcl 20 Mg/2 Ml Oral.Conc) 42 mg PO DAILY@1800 [facility] Last Admin: 02/06/25 18:20 Dose: 42 mg Nicotine (Nicotine 21 Mg Patch.Td24) 21 mg TRANSDERMA DAILY PRN PRN Reason: nicotine craving Nicotine Polacrilex (Nicotine Polacrilex 2 Mg Gum) 2 mg BUCCAL Q2H PRN PRN Reason: Nicotine Cravings Oxymetazoline HCl (Oxymetazoline Hcl 0.05 % Nasal 15 Ml [place]) 2 spray NOSTRIL-B BID PRN PRN Reason: Nasal Congestion Stop: 02/08/25 11:28 Last Admin: 02/05/25 11:52 Dose: 2 spray Prazosin HCl (Prazosin Hcl 1 Mg Capsule) 3 mg PO BEDTIME [facility]; Protocol Propranolol HCl (Propranolol Hcl 20 Mg Tablet) 20 mg PO BID [facility]; Protocol Last Admin: 02/06/25 08:00 Dose: 20 mg Allergies Allergies Allergy/AdvReac Type Severity Reaction Status Date / Time trazodone (TRAZODONE) Allergy Severe SHORTNESS Verified 01/31/25 10:54 OF BREATH, GASPING FOR AIR , SOB aspirin (ASPIRIN) Allergy Unknown STOMACH Verified 01/31/25 10:54 UPSET, Nausea, nausa ciprofloxacin (Cipro) Allergy Unknown Rash Verified 01/31/25 10:54 promethazine (Phenergan) Allergy Unknown Hives Verified 01/31/25 10:54 Sulfa (Sulfonamide Allergy Unknown Unknown Verified 01/31/25 10:54 Antibiotics) Assessment & Plan Assessment & Plan (1) PTSD (post-traumatic stress disorder): Status: Acute Code(s): F43.10 - Post-traumatic stress disorder, unspecified (2) Major depression, recurrent: Status: Acute Code(s): F33.9 - Major depressive disorder, recurrent, unspecified (3) Opioid dependence: Status: Acute Code(s): F11.20 - Opioid dependence, uncomplicated (4) Cocaine use disorder, moderate, dependence: Status: Acute Code(s): F14.20 - Cocaine dependence, uncomplicated Plan 02/01: continue methadone. periodically check QTc. DC zoloft - not on that medication currently. increase abilify from 5 to 7 daily for mood. continue lexapro 5. decrease klonopin to 0.75 per dose. restart wellbutrin 150, increase to 300 after 3 days. counseled abstinence (utox methadone, cocaine, fentanyl, benzo POS). refer for outpt therapy and medications mgmt. 02/03: affect improved, more time in milieu. increase lexapro to 10 mg daily. add benadryl 50 PRN anxiety per pt request. otherwise continue current mgmt. 02/04: start prazosin 1 mg QHS for nightmares and insomnia in PTSD; titrate as indicated. otherwise continue current mgmt. 02/05: Titrate prazosin to 2 mg qhs for nightmares/insomnia off-label. Otherwise continue current med regimen/tx plan 02/06: Pt agreeable w/ plan to titrate prazosin to 3 mg qhs off-label for hyperarousal sx in setting of PTSD. Monitor for s/sx of hypotension. Titrate gabapentin to 300 mg tid off-label for tx of anxiety. Monitor for excessive sedation. Informed Consent: understands Reason for continued inpatient stay Substantial Risk for: med/psych decompensation Time Spent With Patient Time: Total time managing care of this patient today __30__ minutes.
[2025-02-06 21:14] VITALS: BP 108/59; PULSE 57; RESP 16; TEMP 36.3; O2SAT 97
[2025-02-07 08:36] VITALS: BP 111/57; PULSE 57; O2SAT 97
[2025-02-07] MEDS: methADONE HCl 20 MG/2 ML ORAL.CONC 30 MG PO (08:45)
[2025-02-07] MEDS: buPROPion HCl XL 300 MG TAB.ER.24H PO (08:48)
[2025-02-07 08:49] VITALS: BP 111/57; PULSE 57
[2025-02-07 12:00] VITALS: BP 94/57; PULSE 56
[2025-02-07] MEDS: methADONE HCl 20 MG/2 ML ORAL.CONC 42 MG PO (17:43)
--- NOTE | 2025-02-07 18:15 | HO.PSYCHPN ---
Subjective Subjective Date of Service: 02/07/25 Reason For Visit: SI and HI Subjective Notes: Conditional Voluntary Interim History: chart reviewed, case discussed in tx team, met with pt Pt feels more tired today, which she attributes to cold sx. She is afebrile. Gabapentin dose was increased from 300 mg bid to tid today and I told her the midday dose may have also contributed to sedation this afternoon. Still having nightmares and reports poor sleep. She thinks the prazosin may be making her feel worse and she asked to d/c it. Discussed low BP. Denies dizziness or palpitations. She wants to continue the propranolol since it helps with her anxiety. Discussed d/c planning. She thinks she can return to the sober living house but hasn't called to confirm. She asked her mom to call the staff today and her mom reportedly left a message but hasn't heard back. Pt feels like she was treated unfairly there by staff. Mental Status Exam Mental Status Exam Narrative: Appearance: Grooming/hygiene wnl. Good eye contact Attitude:Cooperative Speech: Fluent and wnl in regard to volume, tone, prosody Motor activity: Calm and without any tics, tremors or dyskinesias. Steady gait Mood: anxious, tired Affect: appropriate, reactive Thought process: goal directed and without evidence of formal thought disorder Thought content: as noted above. Denies current SI or violent ideation Perception: does not appear to respond to internal stimuli Cognition grossly intact Insight: fair Judgment: fair Diagnostics Vital Signs (24Hr): Vital Signs - 24 hr 02/06/25 21:14 02/07/25 08:36 02/07/25 08:49 Temperature 97.4 F Pulse Rate 57 57 57 Respiratory Rate 16 Blood Pressure 108/59 L 111/57 L 111/57 L Pulse Oximetry 97 97 Oxygen Delivery Method Room Air Room Air 02/07/25 12:00 Temperature Pulse Rate 56 Respiratory Rate Blood Pressure 94/57 L Pulse Oximetry Oxygen Delivery Method BMI result Body Mass Index 26.3 Labs 01/31/25 11:48 02/01/25 07:35 Medications Medications Current Medications Acetaminophen (Acetaminophen 325 Mg Tablet) 650 mg PO Q6H PRN PRN Reason: Headache/Pain, Scale 1-10 Last Admin: 02/05/25 08:19 Dose: 650 mg Al Hydroxide/Mg Hydroxide (Magnesium Hydrox/Alum Hydrox 30 Ml Oral.Susp) 30 ml PO Q6H PRN PRN Reason: Heartburn/Nausea Last Admin: 01/31/25 20:09 Dose: 30 ml Aripiprazole 2 mg/ (Aripiprazole 5 mg) 7 mg PO DAILY [facility] Last Admin: 02/07/25 08:48 Dose: 7 mg Benzocaine (Throat Lozenge, Medicated Lozenge) 1 lozenge MUCOUS MEM Q1H PRN PRN Reason: Sore Throat Last Admin: 02/02/25 11:26 Dose: 1 lozenge Bupropion HCl (Bupropion Hcl Xl 300 Mg Tab.Er.24h) 300 mg PO DAILY [facility] Last Admin: 02/07/25 08:48 Dose: 300 mg Clonazepam (Clonazepam 0.5 Mg Tablet) 0.5 mg PO BID PRN PRN Reason: SEVERE ANXIETY Last Admin: 02/06/25 21:43 Dose: 0.5 mg Clonazepam (Clonazepam 0.5 Mg Tablet) 0.25 mg PO BID PRN PRN Reason: SEVERE ANXIETY Last Admin: 02/06/25 21:43 Dose: 0.25 mg Cyproheptadine HCl (Cyproheptadine Hcl 4 Mg Tablet) 4 mg PO BEDTIME [facility] Diphenhydramine HCl (Diphenhydramine Hcl 25 Mg Capsule) 50 mg PO Q6H PRN PRN Reason: congestion/anxiety Last Admin: 02/07/25 12:40 Dose: 50 mg Docusate Sodium (Docusate Sodium 100 Mg Capsule) 100 mg PO DAILY [facility] Last Admin: 02/07/25 08:49 Dose: Not Given Escitalopram Oxalate (Escitalopram Oxalate 10 Mg Tablet) 10 mg PO DAILY [facility] Last Admin: 02/07/25 08:49 Dose: 10 mg Gabapentin (Gabapentin 300 Mg Capsule) 300 mg PO TID [facility] Last Admin: 02/07/25 14:12 Dose: 300 mg Guaifenesin (Guaifenesin La 600 Mg Tab.Er.12h) 1,200 mg PO BID PRN PRN Reason: Cough Last Admin: 02/03/25 21:59 Dose: 1,200 mg Ibuprofen (Ibuprofen 600 Mg Tablet) 600 mg PO Q6H PRN PRN Reason: Pain, Moderate(Pain Scale 4-6) Last Admin: 02/05/25 12:54 Dose: 600 mg Magnesium Hydroxide (Milk Of Magnesia 30 Ml Oral.Susp) 30 ml PO DAILY PRN PRN Reason: Constipation Melatonin (Melatonin 3 Mg Tablet) 6 mg PO BEDTIME [facility] Last Admin: 02/06/25 21:45 Dose: Not Given Methadone HCl (Methadone Hcl 20 Mg/2 Ml Oral.Conc) 30 mg PO DAILY@0800 [facility] Last Admin: 02/07/25 08:45 Dose: 30 mg Methadone HCl (Methadone Hcl 20 Mg/2 Ml Oral.Conc) 42 mg PO DAILY@1800 [facility] Last Admin: 02/07/25 17:43 Dose: 42 mg Nicotine (Nicotine 21 Mg Patch.Td24) 21 mg TRANSDERMA DAILY PRN PRN Reason: nicotine craving Nicotine Polacrilex (Nicotine Polacrilex 2 Mg Gum) 2 mg BUCCAL Q2H PRN PRN Reason: Nicotine Cravings Oxymetazoline HCl (Oxymetazoline Hcl 0.05 % Nasal 15 Ml [place]) 2 spray NOSTRIL-B BID PRN PRN Reason: Nasal Congestion Stop: 02/08/25 11:28 Last Admin: 02/05/25 11:52 Dose: 2 spray Propranolol HCl (Propranolol Hcl 20 Mg Tablet) 20 mg PO BID [facility]; Protocol Last Admin: 02/07/25 08:49 Dose: Not Given Allergies Allergies Allergy/AdvReac Type Severity Reaction Status Date / Time trazodone (TRAZODONE) Allergy Severe SHORTNESS Verified 01/31/25 10:54 OF BREATH, GASPING FOR AIR , SOB aspirin (ASPIRIN) Allergy Unknown STOMACH Verified 01/31/25 10:54 UPSET, Nausea, nausa ciprofloxacin (Cipro) Allergy Unknown Rash Verified 01/31/25 10:54 promethazine (Phenergan) Allergy Unknown Hives Verified 01/31/25 10:54 Sulfa (Sulfonamide Allergy Unknown Unknown Verified 01/31/25 10:54 Antibiotics) Assessment & Plan Assessment & Plan (1) PTSD (post-traumatic stress disorder): Status: Acute Code(s): F43.10 - Post-traumatic stress disorder, unspecified (2) Major depression, recurrent: Status: Acute Code(s): F33.9 - Major depressive disorder, recurrent, unspecified (3) Opioid dependence: Status: Acute Code(s): F11.20 - Opioid dependence, uncomplicated (4) Cocaine use disorder, moderate, dependence: Status: Acute Code(s): F14.20 - Cocaine dependence, uncomplicated Plan 02/01: continue methadone. periodically check QTc. DC zoloft - not on that medication currently. increase abilify from 5 to 7 daily for mood. continue lexapro 5. decrease klonopin to 0.75 per dose. restart wellbutrin 150, increase to 300 after 3 days. counseled abstinence (utox methadone, cocaine, fentanyl, benzo POS). refer for outpt therapy and medications mgmt. 02/03: affect improved, more time in milieu. increase lexapro to 10 mg daily. add benadryl 50 PRN anxiety per pt request. otherwise continue current mgmt. 02/04: start prazosin 1 mg QHS for nightmares and insomnia in PTSD; titrate as indicated. otherwise continue current mgmt. 02/05: Titrate prazosin to 2 mg qhs for nightmares/insomnia off-label. Otherwise continue current med regimen/tx plan 02/06: Pt agreeable w/ plan to titrate prazosin to 3 mg qhs off-label for hyperarousal sx in setting of PTSD. Monitor for s/sx of hypotension. Titrate gabapentin to 300 mg tid off-label for tx of anxiety. Monitor for excessive sedation. 02/07: Pt endorsed increased sedation today, which could be related to cold sx or addition of 300 mg gabapentin at midday. Pt would like to continue gabapentin 300 mg tid for now. Will d/c prazosin due to lack of efficacy & hypotension (will not taper since it was recently started and she is hypotensive). Will trial cyproheptadine 4 mg off-label to target nightmares. Reviewed med r/b/a. Will aim for d/c next wk back to sober living house if they accept her. Patient educated on: medication risk/benefits Informed Consent: understands Reason for continued inpatient stay Substantial Risk for: med/psych decompensation Time Spent With Patient Time: Total time managing care of this patient today __30__ minutes.
[2025-02-07 19:30] VITALS: BP 119/64; PULSE 52; RESP 16; TEMP 36.7; O2SAT 95
[2025-02-07 22:41] VITALS: BP 99/57; PULSE 53
[2025-02-08 07:00] VITALS: BMI 26.7
[2025-02-08 08:00] VITALS: BP 101/64; PULSE 55; RESP 16; TEMP 36.5; O2SAT 95
[2025-02-08] MEDS: methADONE HCl 20 MG/2 ML ORAL.CONC 30 MG PO (08:28)
[2025-02-08] MEDS: buPROPion HCl XL 300 MG TAB.ER.24H PO (08:29)
[2025-02-08 08:32] VITALS: BP 101/64; PULSE 86
--- NOTE | 2025-02-08 11:42 | HO.PSYCHPN ---
Subjective Subjective Date of Service: 02/08/25 Reason For Visit: SI and HI Subjective Notes: Conditional Voluntary Interim History: chart reviewed, case discussed in tx team Pt c/o congestion, PEDRAZA, cough. PRN meds have helped. Afebrile. On exam- Chest clear to auscultation BL She's been spending most of the day in bed due to the above sx. Hasn't heard back from her mom about the sober living situation. Aware of goal for d/c next wk. She's anxious about it but trying to stay optimistic. Denies current SI or violent ideation. Reports less intense nightmares last night (1st night w/ 4 mg cyproheptadine, prazosin d/c'd). She feels better off the prazosin. Agrees w/ plan to continue current med regimen for now Mental Status Exam Mental Status Exam Narrative: Appearance: Grooming/hygiene wnl. dressed in [facility]. Lying in bed. good eye contact Attitude:Cooperative Speech: Fluent and wnl in regard to volume, tone, prosody Motor activity: Calm and without any tics, tremors or dyskinesias. Steady gait Mood: anxious, tired Affect: appropriate, constricted Thought process: goal directed and without evidence of formal thought disorder Thought content: as noted above. Denies current SI or violent ideation Perception: does not appear to respond to internal stimuli Cognition grossly intact Insight: fair Judgment: fair Diagnostics Vital Signs (24Hr): Vital Signs - 24 hr 02/07/25 12:00 02/07/25 19:30 02/07/25 22:41 Temperature 98.1 F Pulse Rate 56 52 53 Respiratory Rate 16 Blood Pressure 94/57 L 119/64 99/57 L Pulse Oximetry 95 Oxygen Delivery Method Room Air 02/08/25 08:00 02/08/25 08:32 Temperature 97.7 F Pulse Rate 55 86 Respiratory Rate 16 Blood Pressure 101/64 101/64 Pulse Oximetry 95 Oxygen Delivery Method Room Air BMI result Body Mass Index 26.7 Labs 01/31/25 11:48 02/01/25 07:35 Medications Medications Current Medications Acetaminophen (Acetaminophen 325 Mg Tablet) 650 mg PO Q6H PRN PRN Reason: Headache/Pain, Scale 1-10 Last Admin: 02/05/25 08:19 Dose: 650 mg Al Hydroxide/Mg Hydroxide (Magnesium Hydrox/Alum Hydrox 30 Ml Oral.Susp) 30 ml PO Q6H PRN PRN Reason: Heartburn/Nausea Last Admin: 01/31/25 20:09 Dose: 30 ml Aripiprazole 2 mg/ (Aripiprazole 5 mg) 7 mg PO DAILY [facility] Last Admin: 02/08/25 08:31 Dose: 7 mg Benzocaine (Throat Lozenge, Medicated Lozenge) 1 lozenge MUCOUS MEM Q1H PRN PRN Reason: Sore Throat Last Admin: 02/02/25 11:26 Dose: 1 lozenge Bupropion HCl (Bupropion Hcl Xl 300 Mg Tab.Er.24h) 300 mg PO DAILY [facility] Last Admin: 02/08/25 08:29 Dose: 300 mg Clonazepam (Clonazepam 0.5 Mg Tablet) 0.5 mg PO BID PRN PRN Reason: SEVERE ANXIETY Last Admin: 02/08/25 08:30 Dose: 0.5 mg Clonazepam (Clonazepam 0.5 Mg Tablet) 0.25 mg PO BID PRN PRN Reason: SEVERE ANXIETY Last Admin: 02/08/25 08:31 Dose: 0.25 mg Cyproheptadine HCl (Cyproheptadine Hcl 4 Mg Tablet) 4 mg PO BEDTIME [facility] Last Admin: 02/07/25 22:37 Dose: 4 mg Diphenhydramine HCl (Diphenhydramine Hcl 25 Mg Capsule) 50 mg PO Q6H PRN PRN Reason: congestion/anxiety Last Admin: 02/07/25 12:40 Dose: 50 mg Docusate Sodium (Docusate Sodium 100 Mg Capsule) 100 mg PO DAILY [facility] Last Admin: 02/08/25 11:13 Dose: Not Given Escitalopram Oxalate (Escitalopram Oxalate 10 Mg Tablet) 10 mg PO DAILY [facility] Last Admin: 02/08/25 08:30 Dose: 10 mg Gabapentin (Gabapentin 300 Mg Capsule) 300 mg PO TID [facility] Last Admin: 02/08/25 08:31 Dose: 300 mg Guaifenesin (Guaifenesin La 600 Mg Tab.Er.12h) 1,200 mg PO BID PRN PRN Reason: Cough Last Admin: 02/03/25 21:59 Dose: 1,200 mg Ibuprofen (Ibuprofen 600 Mg Tablet) 600 mg PO Q6H PRN PRN Reason: Pain, Moderate(Pain Scale 4-6) Last Admin: 02/08/25 11:15 Dose: 600 mg Magnesium Hydroxide (Milk Of Magnesia 30 Ml Oral.Susp) 30 ml PO DAILY PRN PRN Reason: Constipation Melatonin (Melatonin 3 Mg Tablet) 6 mg PO BEDTIME PRN PRN Reason: insomnia Methadone HCl (Methadone Hcl 20 Mg/2 Ml Oral.Conc) 30 mg PO DAILY@0800 [facility] Last Admin: 02/08/25 08:28 Dose: 30 mg Methadone HCl (Methadone Hcl 20 Mg/2 Ml Oral.Conc) 42 mg PO DAILY@1800 [facility] Last Admin: 02/07/25 17:43 Dose: 42 mg Nicotine (Nicotine 21 Mg Patch.Td24) 21 mg TRANSDERMA DAILY PRN PRN Reason: nicotine craving Nicotine Polacrilex (Nicotine Polacrilex 2 Mg Gum) 2 mg BUCCAL Q2H PRN PRN Reason: Nicotine Cravings Propranolol HCl (Propranolol Hcl 20 Mg Tablet) 20 mg PO BID [facility]; Protocol Last Admin: 02/08/25 08:32 Dose: 20 mg Allergies Allergies Allergy/AdvReac Type Severity Reaction Status Date / Time trazodone (TRAZODONE) Allergy Severe SHORTNESS Verified 01/31/25 10:54 OF BREATH, GASPING FOR AIR , SOB aspirin (ASPIRIN) Allergy Unknown STOMACH Verified 01/31/25 10:54 UPSET, Nausea, nausa ciprofloxacin (Cipro) Allergy Unknown Rash Verified 01/31/25 10:54 promethazine (Phenergan) Allergy Unknown Hives Verified 01/31/25 10:54 Sulfa (Sulfonamide Allergy Unknown Unknown Verified 01/31/25 10:54 Antibiotics) Assessment & Plan Assessment & Plan (1) PTSD (post-traumatic stress disorder): Status: Acute Code(s): F43.10 - Post-traumatic stress disorder, unspecified (2) Major depression, recurrent: Status: Acute Code(s): F33.9 - Major depressive disorder, recurrent, unspecified (3) Opioid dependence: Status: Acute Code(s): F11.20 - Opioid dependence, uncomplicated (4) Cocaine use disorder, moderate, dependence: Status: Acute Code(s): F14.20 - Cocaine dependence, uncomplicated Plan 02/01: continue methadone. periodically check QTc. DC zoloft - not on that medication currently. increase abilify from 5 to 7 daily for mood. continue lexapro 5. decrease klonopin to 0.75 per dose. restart wellbutrin 150, increase to 300 after 3 days. counseled abstinence (utox methadone, cocaine, fentanyl, benzo POS). refer for outpt therapy and medications mgmt. 02/03: affect improved, more time in milieu. increase lexapro to 10 mg daily. add benadryl 50 PRN anxiety per pt request. otherwise continue current mgmt. 02/04: start prazosin 1 mg QHS for nightmares and insomnia in PTSD; titrate as indicated. otherwise continue current mgmt. 02/05: Titrate prazosin to 2 mg qhs for nightmares/insomnia off-label. Otherwise continue current med regimen/tx plan 02/06: Pt agreeable w/ plan to titrate prazosin to 3 mg qhs off-label for hyperarousal sx in setting of PTSD. Monitor for s/sx of hypotension. Titrate gabapentin to 300 mg tid off-label for tx of anxiety. Monitor for excessive sedation. 02/07: Pt endorsed increased sedation today, which could be related to cold sx or addition of 300 mg gabapentin at midday. Pt would like to continue gabapentin 300 mg tid for now. Will d/c prazosin due to lack of efficacy & hypotension (will not taper since it was recently started and she is hypotensive). Will trial cyproheptadine 4 mg off-label to target nightmares. Reviewed med r/b/a. Will aim for d/c next wk back to sober living house if they accept her. 02/08: Pt reports reduction in nightmares w/ cyproheptadine. Will continue current med regimen for now. Reason for continued inpatient stay Substantial Risk for: med/psych decompensation Time Spent With Patient Time: Total time managing care of this patient today _25___ minutes.
[2025-02-08] MEDS: methADONE HCl 20 MG/2 ML ORAL.CONC 42 MG PO (19:25)
[2025-02-08 20:00] VITALS: BP 102/64; PULSE 57; RESP 16; TEMP 36.8; O2SAT 94
[2025-02-08 21:35] VITALS: BP 109/63; PULSE 60
[2025-02-09 07:15] VITALS: BP 98/55; PULSE 54; RESP 16; TEMP 37.3; O2SAT 96
[2025-02-09] MEDS: buPROPion HCl XL 300 MG TAB.ER.24H PO (08:53)
[2025-02-09] MEDS: methADONE HCl 20 MG/2 ML ORAL.CONC 30 MG PO (09:02)
[2025-02-09 09:09] VITALS: BP 97/60; PULSE 73
--- NOTE | 2025-02-09 09:36 | P.PNPSI_ITS ---
Subjective Subjective Date of Service: 02/09/25 Reason For Visit: SI and HI Subjective Notes: Conditional Voluntary Interim History: Chart reviewed, case discussed in team body aches/URI sx improved Appeared to be asleep x 7 hrs per staff report. Pt reports poor sleep, nightmares, was up crying when she couldn't sleep.She's been processing the loss of her ex, who was murdered. Her mood is better today. She denies SI or violent ideation. Propranolol has been held mult x due to hypotension/bradycardia. Pt reports feeling more anxious w/o it (takes for anxiety). She agreed w/ trying to lower the dose to reduce effect on HR/BP. Pt feels tired but thinks this might be related to stress. She denies feeling more sedated after getting midday gabapentin dose, wants to continue it. States that she prefers to take gabapentin rather than the 4 mg of clonazepam that she took prior to admission. The clonazepam still helps at the lower dose Mental Status Exam Mental Status Exam Narrative: Appearance: Grooming/hygiene wnl. dressed in [facility]. was lying in bed but sat up during mtg. good eye contact Attitude:Cooperative Speech: Fluent and wnl in regard to volume, tone, prosody Motor activity: Calm and without any tics, tremors or dyskinesias. Steady gait Mood: better Affect: appropriate, reactive Thought process: goal directed and without evidence of formal thought disorder Thought content: as noted above. Denies current SI or violent ideation Perception: does not appear to respond to internal stimuli Cognition grossly intact Insight: fair Judgment: fair Diagnostics Vital Signs (24Hr): Vital Signs - 24 hr 02/08/25 20:00 02/08/25 21:35 02/09/25 07:15 Temperature 98.3 F 99.2 F Pulse Rate 57 60 54 Respiratory Rate 16 16 Blood Pressure 102/64 109/63 98/55 L Pulse Oximetry 94 96 Oxygen Delivery Method Room Air Room Air 02/09/25 09:09 Temperature Pulse Rate 73 Respiratory Rate Blood Pressure 97/60 Pulse Oximetry Oxygen Delivery Method BMI result Body Mass Index 26.7 Labs 01/31/25 11:48 02/01/25 07:35 Medications Medications Current Medications Acetaminophen (Acetaminophen 325 Mg Tablet) 650 mg PO Q6H PRN PRN Reason: Headache/Pain, Scale 1-10 Last Admin: 02/05/25 08:19 Dose: 650 mg Al Hydroxide/Mg Hydroxide (Magnesium Hydrox/Alum Hydrox 30 Ml Oral.Susp) 30 ml PO Q6H PRN PRN Reason: Heartburn/Nausea Last Admin: 01/31/25 20:09 Dose: 30 ml Aripiprazole 2 mg/ (Aripiprazole 5 mg) 7 mg PO DAILY [facility] Last Admin: 02/09/25 08:53 Dose: 7 mg Benzocaine (Throat Lozenge, Medicated Lozenge) 1 lozenge MUCOUS MEM Q1H PRN PRN Reason: Sore Throat Last Admin: 02/02/25 11:26 Dose: 1 lozenge Bupropion HCl (Bupropion Hcl Xl 300 Mg Tab.Er.24h) 300 mg PO DAILY [facility] Last Admin: 02/09/25 08:53 Dose: 300 mg Clonazepam (Clonazepam 0.5 Mg Tablet) 0.5 mg PO BID PRN PRN Reason: SEVERE ANXIETY Last Admin: 02/09/25 08:55 Dose: 0.5 mg Clonazepam (Clonazepam 0.5 Mg Tablet) 0.25 mg PO BID PRN PRN Reason: SEVERE ANXIETY Last Admin: 02/09/25 08:58 Dose: 0.25 mg Cyproheptadine HCl (Cyproheptadine Hcl 4 Mg Tablet) 4 mg PO BEDTIME [facility] Last Admin: 02/08/25 21:36 Dose: 4 mg Diphenhydramine HCl (Diphenhydramine Hcl 25 Mg Capsule) 50 mg PO Q6H PRN PRN Reason: congestion/anxiety Last Admin: 02/07/25 12:40 Dose: 50 mg Docusate Sodium (Docusate Sodium 100 Mg Capsule) 100 mg PO DAILY [facility] Last Admin: 02/08/25 11:13 Dose: Not Given Escitalopram Oxalate (Escitalopram Oxalate 10 Mg Tablet) 10 mg PO DAILY [facility] Last Admin: 02/09/25 08:53 Dose: 10 mg Gabapentin (Gabapentin 300 Mg Capsule) 300 mg PO TID [facility] Last Admin: 02/09/25 08:58 Dose: 300 mg Guaifenesin (Guaifenesin La 600 Mg Tab.Er.12h) 1,200 mg PO BID PRN PRN Reason: Cough Last Admin: 02/03/25 21:59 Dose: 1,200 mg Ibuprofen (Ibuprofen 600 Mg Tablet) 600 mg PO Q6H PRN PRN Reason: Pain, Moderate(Pain Scale 4-6) Last Admin: 02/09/25 08:52 Dose: 600 mg Magnesium Hydroxide (Milk Of Magnesia 30 Ml Oral.Susp) 30 ml PO DAILY PRN PRN Reason: Constipation Melatonin (Melatonin 3 Mg Tablet) 6 mg PO BEDTIME PRN PRN Reason: insomnia Methadone HCl (Methadone Hcl 20 Mg/2 Ml Oral.Conc) 30 mg PO DAILY@0800 [facility] Last Admin: 02/09/25 09:02 Dose: 30 mg Methadone HCl (Methadone Hcl 20 Mg/2 Ml Oral.Conc) 42 mg PO DAILY@1800 [facility] Last Admin: 02/08/25 19:25 Dose: 42 mg Nicotine (Nicotine 21 Mg Patch.Td24) 21 mg TRANSDERMA DAILY PRN PRN Reason: nicotine craving Nicotine Polacrilex (Nicotine Polacrilex 2 Mg Gum) 2 mg BUCCAL Q2H PRN PRN Reason: Nicotine Cravings Propranolol HCl (Propranolol Hcl 20 Mg Tablet) 20 mg PO BID [facility]; Protocol Last Admin: 02/08/25 21:35 Dose: 20 mg Allergies Allergies Allergy/AdvReac Type Severity Reaction Status Date / Time trazodone (TRAZODONE) Allergy Severe SHORTNESS Verified 01/31/25 10:54 OF BREATH, GASPING FOR AIR , SOB aspirin (ASPIRIN) Allergy Unknown STOMACH Verified 01/31/25 10:54 UPSET, Nausea, nausa ciprofloxacin (Cipro) Allergy Unknown Rash Verified 01/31/25 10:54 promethazine (Phenergan) Allergy Unknown Hives Verified 01/31/25 10:54 Sulfa (Sulfonamide Allergy Unknown Unknown Verified 01/31/25 10:54 Antibiotics) Assessment & Plan Assessment & Plan (1) PTSD (post-traumatic stress disorder): Status: Acute Code(s): F43.10 - Post-traumatic stress disorder, unspecified (2) Major depression, recurrent: Status: Acute Code(s): F33.9 - Major depressive disorder, recurrent, unspecified (3) Opioid dependence: Status: Acute Code(s): F11.20 - Opioid dependence, uncomplicated (4) Cocaine use disorder, moderate, dependence: Status: Acute Code(s): F14.20 - Cocaine dependence, uncomplicated Plan 02/01: continue methadone. periodically check QTc. DC zoloft - not on that medication currently. increase abilify from 5 to 7 daily for mood. continue lexapro 5. decrease klonopin to 0.75 per dose. restart wellbutrin 150, increase to 300 after 3 days. counseled abstinence (utox methadone, cocaine, fentanyl, benzo POS). refer for outpt therapy and medications mgmt. 02/03: affect improved, more time in milieu. increase lexapro to 10 mg daily. add benadryl 50 PRN anxiety per pt request. otherwise continue current mgmt. 02/04: start prazosin 1 mg QHS for nightmares and insomnia in PTSD; titrate as indicated. otherwise continue current mgmt. 02/05: Titrate prazosin to 2 mg qhs for nightmares/insomnia off-label. Otherwise continue current med regimen/tx plan 02/06: Pt agreeable w/ plan to titrate prazosin to 3 mg qhs off-label for hyperarousal sx in setting of PTSD. Monitor for s/sx of hypotension. Titrate gabapentin to 300 mg tid off-label for tx of anxiety. Monitor for excessive sedation. 02/07: Pt endorsed increased sedation today, which could be related to cold sx or addition of 300 mg gabapentin at midday. Pt would like to continue gabapentin 300 mg tid for now. Will d/c prazosin due to lack of efficacy & hypotension (will not taper since it was recently started and she is hypotensive). Will trial cyproheptadine 4 mg off-label to target nightmares. Reviewed med r/b/a. Will aim for d/c next wk back to sober living house if they accept her. 02/08: Pt reports reduction in nightmares w/ cyproheptadine. Will continue current med regimen for now. 02/09: Pt agreeable w/ plan to titrate cyproheptadine off-label to reduce nightmares. Will lower propranolol to 10 mg bid (for anxiety) to reduce risk of hypotension/bradycardia. otherwise continue current tx plan Patient educated on: medication risk/benefits and therapeutic strategies Informed Consent: understands Reason for continued inpatient stay Substantial Risk for: med/psych decompensation Time Spent With Patient Time: Total time managing care of this patient today __25__ minutes.
[2025-02-09 10:11] VITALS: BP 89/58; PULSE 73
[2025-02-09] MEDS: methADONE HCl 20 MG/2 ML ORAL.CONC 42 MG PO (18:14)
[2025-02-09 20:00] VITALS: BP 101/60; PULSE 59; RESP 16; TEMP 36.9; O2SAT 95
--- NOTE | 2025-02-10 07:30 | P.PNPSI_ITS ---
Subjective Subjective Date of Service: 02/10/25 Reason For Visit: SI and HI Subjective Notes: Conditional Voluntary Interim History: Noted 02/09: Propranolol has been held mult x due to hypotension/bradycardia. Pt reports feeling more anxious w/o it (takes for anxiety). She agreed w/ trying to lower the dose to reduce effect on HR/BP. Pt feels tired but thinks this might be related to stress. She denies feeling more sedated after getting midday gabapentin dose, wants to continue it. States that she prefers to take gabapentin rather than the 4 mg of clonazepam that she took prior to admission. The clonazepam still helps at the lower dose today, has been sleeping well. Ongoing depression. His concern around discharge planning and reported groups were triggering today from trauma and anxiety perspective. No SI. No agitation or psychosis. Was asking around p.r.n. medications and 1 that had been discontinued. Reviewed chart and appears this was Benadryl and same reordered. Medication Compliance: Yes Side effects from medications: No Attending Groups: Yes Review of Systems Acute medical concerns: No Mental Status Exam Mental Status Exam Narrative: Appearance: Grooming/hygiene wnl. dressed in [facility]. good eye contact Attitude:Cooperative Speech: Fluent and wnl in regard to volume, tone, prosody Motor activity: Calm and without any tics, tremors or dyskinesias. Steady gait Mood: Anxious Affect: congruent Thought process: goal directed and without evidence of formal thought disorder Thought content: as noted above. Denies current SI or violent ideation Perception: does not appear to respond to internal stimuli Cognition grossly intact Insight: fair Judgment: fair Diagnostics Vital Signs (24Hr): Vital Signs - 24 hr 02/09/25 09:09 02/09/25 10:11 02/09/25 20:00 Temperature 98.4 F Pulse Rate 73 73 59 Respiratory Rate 16 Blood Pressure 97/60 89/58 L 101/60 Pulse Oximetry 95 Oxygen Delivery Method Room Air BMI result Body Mass Index 26.7 Labs 01/31/25 11:48 02/01/25 07:35 Medications Medications Current Medications Acetaminophen (Acetaminophen 325 Mg Tablet) 650 mg PO Q6H PRN PRN Reason: Headache/Pain, Scale 1-10 Last Admin: 02/05/25 08:19 Dose: 650 mg Al Hydroxide/Mg Hydroxide (Magnesium Hydrox/Alum Hydrox 30 Ml Oral.Susp) 30 ml PO Q6H PRN PRN Reason: Heartburn/Nausea Last Admin: 01/31/25 20:09 Dose: 30 ml Aripiprazole 2 mg/ (Aripiprazole 5 mg) 7 mg PO DAILY [facility] Last Admin: 02/09/25 08:53 Dose: 7 mg Benzocaine (Throat Lozenge, Medicated Lozenge) 1 lozenge MUCOUS MEM Q1H PRN PRN Reason: Sore Throat Last Admin: 02/02/25 11:26 Dose: 1 lozenge Bupropion HCl (Bupropion Hcl Xl 300 Mg Tab.Er.24h) 300 mg PO DAILY [facility] Last Admin: 02/09/25 08:53 Dose: 300 mg Clonazepam (Clonazepam 0.5 Mg Tablet) 0.5 mg PO BID PRN PRN Reason: SEVERE ANXIETY Last Admin: 02/09/25 20:23 Dose: 0.5 mg Clonazepam (Clonazepam 0.5 Mg Tablet) 0.25 mg PO BID PRN PRN Reason: SEVERE ANXIETY Last Admin: 02/09/25 20:23 Dose: 0.25 mg Cyproheptadine HCl (Cyproheptadine Hcl 4 Mg Tablet) 8 mg PO BEDTIME [facility] Last Admin: 02/09/25 20:12 Dose: 8 mg Docusate Sodium (Docusate Sodium 100 Mg Capsule) 100 mg PO DAILY PRN PRN Reason: constipation Escitalopram Oxalate (Escitalopram Oxalate 10 Mg Tablet) 10 mg PO DAILY [facility] Last Admin: 02/09/25 08:53 Dose: 10 mg Gabapentin (Gabapentin 300 Mg Capsule) 300 mg PO TID [facility] Last Admin: 02/09/25 20:13 Dose: 300 mg Guaifenesin (Guaifenesin La 600 Mg Tab.Er.12h) 1,200 mg PO BID PRN PRN Reason: Cough Last Admin: 02/03/25 21:59 Dose: 1,200 mg Ibuprofen (Ibuprofen 600 Mg Tablet) 600 mg PO Q6H PRN PRN Reason: Pain, Moderate(Pain Scale 4-6) Last Admin: 02/09/25 08:52 Dose: 600 mg Magnesium Hydroxide (Milk Of Magnesia 30 Ml Oral.Susp) 30 ml PO DAILY PRN PRN Reason: Constipation Melatonin (Melatonin 3 Mg Tablet) 6 mg PO BEDTIME PRN PRN Reason: insomnia Methadone HCl (Methadone Hcl 20 Mg/2 Ml Oral.Conc) 30 mg PO DAILY@0800 [facility] Last Admin: 02/09/25 09:02 Dose: 30 mg Methadone HCl (Methadone Hcl 20 Mg/2 Ml Oral.Conc) 42 mg PO DAILY@1800 [facility] Last Admin: 02/09/25 18:14 Dose: 42 mg Nicotine (Nicotine 21 Mg Patch.Td24) 21 mg TRANSDERMA DAILY PRN PRN Reason: nicotine craving Nicotine Polacrilex (Nicotine Polacrilex 2 Mg Gum) 2 mg BUCCAL Q2H PRN PRN Reason: Nicotine Cravings Propranolol HCl (Propranolol Hcl 10 Mg Tablet) 10 mg PO BID [facility]; Protocol Last Admin: 02/09/25 20:12 Dose: 10 mg Allergies Allergies Allergy/AdvReac Type Severity Reaction Status Date / Time trazodone (TRAZODONE) Allergy Severe SHORTNESS Verified 01/31/25 10:54 OF BREATH, GASPING FOR AIR , SOB aspirin (ASPIRIN) Allergy Unknown STOMACH Verified 01/31/25 10:54 UPSET, Nausea, nausa ciprofloxacin (Cipro) Allergy Unknown Rash Verified 01/31/25 10:54 promethazine (Phenergan) Allergy Unknown Hives Verified 01/31/25 10:54 Sulfa (Sulfonamide Allergy Unknown Unknown Verified 01/31/25 10:54 Antibiotics) Assessment & Plan Assessment & Plan (1) PTSD (post-traumatic stress disorder): Status: Acute Code(s): F43.10 - Post-traumatic stress disorder, unspecified (2) Major depression, recurrent: Status: Acute Code(s): F33.9 - Major depressive disorder, recurrent, unspecified (3) Opioid dependence: Status: Acute Code(s): F11.20 - Opioid dependence, uncomplicated (4) Cocaine use disorder, moderate, dependence: Status: Acute Code(s): F14.20 - Cocaine dependence, uncomplicated Plan 02/01: continue methadone. periodically check QTc. DC zoloft - not on that medication currently. increase abilify from 5 to 7 daily for mood. continue lexapro 5. decrease klonopin to 0.75 per dose. restart wellbutrin 150, increase to 300 after 3 days. counseled abstinence (utox methadone, cocaine, fentanyl, benzo POS). refer for outpt therapy and medications mgmt. 02/03: affect improved, more time in milieu. increase lexapro to 10 mg daily. add benadryl 50 PRN anxiety per pt request. otherwise continue current mgmt. 02/04: start prazosin 1 mg QHS for nightmares and insomnia in PTSD; titrate as indicated. otherwise continue current mgmt. 02/05: Titrate prazosin to 2 mg qhs for nightmares/insomnia off-label. Otherwise continue current med regimen/tx plan 02/06: Pt agreeable w/ plan to titrate prazosin to 3 mg qhs off-label for hyperarousal sx in setting of PTSD. Monitor for s/sx of hypotension. Titrate gabapentin to 300 mg tid off-label for tx of anxiety. Monitor for excessive sedation. 02/07: Pt endorsed increased sedation today, which could be related to cold sx or addition of 300 mg gabapentin at midday. Pt would like to continue gabapentin 300 mg tid for now. Will d/c prazosin due to lack of efficacy & hypotension (will not taper since it was recently started and she is hypotensive). Will trial cyproheptadine 4 mg off-label to target nightmares. Reviewed med r/b/a. Will aim for d/c next wk back to sober living house if they accept her. 02/08: Pt reports reduction in nightmares w/ cyproheptadine. Will continue current med regimen for now. 02/09: Pt agreeable w/ plan to titrate cyproheptadine off-label to reduce nightmares. Will lower propranolol to 10 mg bid (for anxiety) to reduce risk of hypotension/bradycardia. otherwise continue current tx plan 02/10/2025: Restart Benadryl as needed, as patient was finding this helpful Reason for continued inpatient stay Substantial Risk for: rapid decompensation Time Spent With Patient Time: Total time managing care of this patient today ____ minutes.
[2025-02-10] MEDS: methADONE HCl 20 MG/2 ML ORAL.CONC 30 MG PO (08:06)
[2025-02-10 08:12] VITALS: BP 113/67; PULSE 56; RESP 18; TEMP 36.5; O2SAT 96
[2025-02-10] MEDS: buPROPion HCl XL 300 MG TAB.ER.24H PO (08:18)
[2025-02-10] MEDS: methADONE HCl 20 MG/2 ML ORAL.CONC 42 MG PO (17:15)
[2025-02-10 20:00] VITALS: BP 116/74; PULSE 62; RESP 16; TEMP 37; O2SAT 97
[2025-02-11 08:02] VITALS: BP 87/50; PULSE 67; RESP 16; TEMP 36.9; O2SAT 97
[2025-02-11] MEDS: methADONE HCl 20 MG/2 ML ORAL.CONC 30 MG PO (08:23)
[2025-02-11] MEDS: buPROPion HCl XL 300 MG TAB.ER.24H PO (08:26)
[2025-02-11 09:15] VITALS: BP 94/50; PULSE 77
--- NOTE | 2025-02-11 11:01 | HO.PSYCHPN ---
Subjective Subjective Date of Service: 02/11/25 Reason For Visit: SI and HI Interim History: Noted 02/09: Propranolol has been held mult x due to hypotension/bradycardia. Pt reports feeling more anxious w/o it (takes for anxiety). She agreed w/ trying to lower the dose to reduce effect on HR/BP. Pt feels tired but thinks this might be related to stress. She denies feeling more sedated after getting midday gabapentin dose, wants to continue it. States that she prefers to take gabapentin rather than the 4 mg of clonazepam that she took prior to admission. The clonazepam still helps at the lower dose Today: overall feeling less anxious with Benadryl being rear-ended. Was worried about the future as she forgot getting medications yesterday and reports that when she decompensates she can have periods where she completely misses days at a time- reassurance provided and advised to monitor same. Not depressed. Not suicidal. No psychosis. Sleeping well. Medication Compliance: Yes Side effects from medications: No Attending Groups: Yes Review of Systems Acute medical concerns: No Review of Systems Review of Systems nothing acute Mental Status Exam Mental Status Exam Narrative: Appearance: Grooming/hygiene wnl. dressed in [facility]. good eye contact Attitude:Cooperative Speech: Fluent and wnl in regard to volume, tone, prosody Motor activity: Calm and without any tics, tremors or dyskinesias. Steady gait Mood: Less anxious Affect: congruent Thought process: goal directed and without evidence of formal thought disorder Thought content: as noted above. Denies current SI or violent ideation Perception: does not appear to respond to internal stimuli Cognition grossly intact Insight: fair Judgment: fair Diagnostics Vital Signs (24Hr): Vital Signs - 24 hr 02/10/25 20:00 02/11/25 08:02 02/11/25 09:15 Temperature 98.6 F 98.5 F Pulse Rate 62 67 77 Respiratory Rate 16 16 Blood Pressure 116/74 87/50 L 94/50 L Pulse Oximetry 97 97 Oxygen Delivery Method Room Air Room Air BMI result Body Mass Index 26.7 Labs 01/31/25 11:48 02/01/25 07:35 Medications Medications Current Medications Acetaminophen (Acetaminophen 325 Mg Tablet) 650 mg PO Q6H PRN PRN Reason: Headache/Pain, Scale 1-10 Last Admin: 02/05/25 08:19 Dose: 650 mg Al Hydroxide/Mg Hydroxide (Magnesium Hydrox/Alum Hydrox 30 Ml Oral.Susp) 30 ml PO Q6H PRN PRN Reason: Heartburn/Nausea Last Admin: 01/31/25 20:09 Dose: 30 ml Aripiprazole 2 mg/ (Aripiprazole 5 mg) 7 mg PO DAILY [facility] Last Admin: 02/11/25 08:25 Dose: 7 mg Benzocaine (Throat Lozenge, Medicated Lozenge) 1 lozenge MUCOUS MEM Q1H PRN PRN Reason: Sore Throat Last Admin: 02/02/25 11:26 Dose: 1 lozenge Bupropion HCl (Bupropion Hcl Xl 300 Mg Tab.Er.24h) 300 mg PO DAILY [facility] Last Admin: 02/11/25 08:26 Dose: 300 mg Clonazepam (Clonazepam 0.5 Mg Tablet) 0.5 mg PO BID PRN PRN Reason: SEVERE ANXIETY Last Admin: 02/11/25 08:25 Dose: 0.5 mg Clonazepam (Clonazepam 0.5 Mg Tablet) 0.25 mg PO BID PRN PRN Reason: SEVERE ANXIETY Last Admin: 02/11/25 08:25 Dose: 0.25 mg Cyproheptadine HCl (Cyproheptadine Hcl 4 Mg Tablet) 8 mg PO BEDTIME [facility] Last Admin: 02/10/25 20:18 Dose: 8 mg Diphenhydramine HCl (Diphenhydramine Hcl 25 Mg Capsule) 50 mg PO Q6H PRN PRN Reason: mild anxiety or insomnia Last Admin: 02/10/25 23:44 Dose: 50 mg Docusate Sodium (Docusate Sodium 100 Mg Capsule) 100 mg PO DAILY PRN PRN Reason: constipation Escitalopram Oxalate (Escitalopram Oxalate 10 Mg Tablet) 10 mg PO DAILY [facility] Last Admin: 02/11/25 08:26 Dose: 10 mg Gabapentin (Gabapentin 300 Mg Capsule) 300 mg PO TID [facility] Last Admin: 02/11/25 08:26 Dose: 300 mg Guaifenesin (Guaifenesin La 600 Mg Tab.Er.12h) 1,200 mg PO BID PRN PRN Reason: Cough Last Admin: 02/03/25 21:59 Dose: 1,200 mg Ibuprofen (Ibuprofen 600 Mg Tablet) 600 mg PO Q6H PRN PRN Reason: Pain, Moderate(Pain Scale 4-6) Last Admin: 02/09/25 08:52 Dose: 600 mg Magnesium Hydroxide (Milk Of Magnesia 30 Ml Oral.Susp) 30 ml PO DAILY PRN PRN Reason: Constipation Melatonin (Melatonin 3 Mg Tablet) 6 mg PO BEDTIME PRN PRN Reason: insomnia Methadone HCl (Methadone Hcl 20 Mg/2 Ml Oral.Conc) 30 mg PO DAILY@0800 [facility] Last Admin: 02/11/25 08:23 Dose: 30 mg Methadone HCl (Methadone Hcl 20 Mg/2 Ml Oral.Conc) 42 mg PO DAILY@1800 [facility] Last Admin: 02/10/25 17:15 Dose: 42 mg Nicotine (Nicotine 21 Mg Patch.Td24) 21 mg TRANSDERMA DAILY PRN PRN Reason: nicotine craving Nicotine Polacrilex (Nicotine Polacrilex 2 Mg Gum) 2 mg BUCCAL Q2H PRN PRN Reason: Nicotine Cravings Propranolol HCl (Propranolol Hcl 10 Mg Tablet) 10 mg PO BID [facility]; Protocol Last Admin: 02/11/25 09:15 Dose: Not Given Allergies Allergies Allergy/AdvReac Type Severity Reaction Status Date / Time trazodone (TRAZODONE) Allergy Severe SHORTNESS Verified 01/31/25 10:54 OF BREATH, GASPING FOR AIR , SOB aspirin (ASPIRIN) Allergy Unknown STOMACH Verified 01/31/25 10:54 UPSET, Nausea, nausa ciprofloxacin (Cipro) Allergy Unknown Rash Verified 01/31/25 10:54 promethazine (Phenergan) Allergy Unknown Hives Verified 01/31/25 10:54 Sulfa (Sulfonamide Allergy Unknown Unknown Verified 01/31/25 10:54 Antibiotics) Assessment & Plan Assessment & Plan (1) PTSD (post-traumatic stress disorder): Status: Acute Code(s): F43.10 - Post-traumatic stress disorder, unspecified (2) Major depression, recurrent: Status: Acute Code(s): F33.9 - Major depressive disorder, recurrent, unspecified (3) Opioid dependence: Status: Acute Code(s): F11.20 - Opioid dependence, uncomplicated (4) Cocaine use disorder, moderate, dependence: Status: Acute Code(s): F14.20 - Cocaine dependence, uncomplicated Plan 02/01: continue methadone. periodically check QTc. DC zoloft - not on that medication currently. increase abilify from 5 to 7 daily for mood. continue lexapro 5. decrease klonopin to 0.75 per dose. restart wellbutrin 150, increase to 300 after 3 days. counseled abstinence (utox methadone, cocaine, fentanyl, benzo POS). refer for outpt therapy and medications mgmt. 02/03: affect improved, more time in milieu. increase lexapro to 10 mg daily. add benadryl 50 PRN anxiety per pt request. otherwise continue current mgmt. 02/04: start prazosin 1 mg QHS for nightmares and insomnia in PTSD; titrate as indicated. otherwise continue current mgmt. 02/05: Titrate prazosin to 2 mg qhs for nightmares/insomnia off-label. Otherwise continue current med regimen/tx plan 02/06: Pt agreeable w/ plan to titrate prazosin to 3 mg qhs off-label for hyperarousal sx in setting of PTSD. Monitor for s/sx of hypotension. Titrate gabapentin to 300 mg tid off-label for tx of anxiety. Monitor for excessive sedation. 02/07: Pt endorsed increased sedation today, which could be related to cold sx or addition of 300 mg gabapentin at midday. Pt would like to continue gabapentin 300 mg tid for now. Will d/c prazosin due to lack of efficacy & hypotension (will not taper since it was recently started and she is hypotensive). Will trial cyproheptadine 4 mg off-label to target nightmares. Reviewed med r/b/a. Will aim for d/c next wk back to sober living house if they accept her. 02/08: Pt reports reduction in nightmares w/ cyproheptadine. Will continue current med regimen for now. 02/09: Pt agreeable w/ plan to titrate cyproheptadine off-label to reduce nightmares. Will lower propranolol to 10 mg bid (for anxiety) to reduce risk of hypotension/bradycardia. otherwise continue current tx plan 02/10/2025: Restart Benadryl as needed, as patient was finding this helpful 02/11/2025: No changes Reason for continued inpatient stay Substantial Risk for: rapid decompensation Time Spent With Patient Time: Total time managing care of this patient today ____ minutes.
[2025-02-11] MEDS: methADONE HCl 20 MG/2 ML ORAL.CONC 42 MG PO (18:11)
[2025-02-11 19:45] VITALS: BP 112/63; PULSE 66; RESP 16; TEMP 36.6; O2SAT 95
[2025-02-11 20:55] VITALS: BP 103/65; PULSE 62
[2025-02-12 07:25] VITALS: BP 120/75; PULSE 59; RESP 18; TEMP 36.2; O2SAT 95
[2025-02-12] MEDS: methADONE HCl 20 MG/2 ML ORAL.CONC 30 MG PO (08:00)
[2025-02-12] MEDS: buPROPion HCl XL 300 MG TAB.ER.24H PO (08:38)
--- NOTE | 2025-02-12 14:42 | P.PNPSI_ITS ---
Subjective Subjective Date of Service: 02/12/25 Reason For Visit: SI and HI Subjective Notes: Conditional Voluntary Interim History: Chart reviewed, case discussed with tx team Pt feels 'okay' but anxious/tired. She reports that she's been sleeping a lot during the day since she feels safer sleeping during the daytime. She's sleeping better at night but understands that sleeping during the day is likely impacting her circadian rhythm. She denies any improvement in the nightmares w/ the inc'd dose of cyproheptadine. Denies feeling groggy/confused in the am She is aware of the plan for her to d/c tomorrow and is accepting of the plan. She plans to return to the [facility] (sober living). She hasn't called the staff from the [facility] since she thinks it would be too aggravating to talk to her over the phone. She states that she doesn't need to make arrangements to return and can return when she's dc'd. She denies SI/violent deation Per chart review-- Pt has been more hypotensive in am for past few days, which coincides w/ starting cyproheptadine. She was re-started on prn Benadryl over the weekend for anxiety Medication Compliance: Yes Side effects from medications: No Review of Systems Medical Review of Systems: changed (URI sx significantly improved) Mental Status Exam Mental Status Exam Narrative: Appearance: Casually dressed. Grooming/hygiene wnl. Good eye contact Attitude: Cooperative Speech: Fluent and wnl in regard to volume, tone, prosody Motor activity: Calm and without any tics, tremors or dyskinesias. Steady gait Mood: as noted above Affect: appropriate, reactive, generally bright Thought process: goal directed and without evidence of formal thought disorder Thought content: as noted above. Future oriented Perception: Denies AH/VH and does not appear to respond to internal stimuli Alert/oriented in all spheres Cognition grossly intact Insight: intact Judgment: intact Diagnostics Vital Signs (24Hr): Vital Signs - 24 hr 02/11/25 19:45 02/11/25 20:55 02/12/25 07:25 Temperature 97.9 F 97.1 F Pulse Rate 66 62 59 Respiratory Rate 16 18 Blood Pressure 112/63 103/65 120/75 Pulse Oximetry 95 95 Oxygen Delivery Method Room Air Room Air BMI result Body Mass Index 26.7 Labs 01/31/25 11:48 02/01/25 07:35 Medications Medications Current Medications Acetaminophen (Acetaminophen 325 Mg Tablet) 650 mg PO Q6H PRN PRN Reason: Headache/Pain, Scale 1-10 Last Admin: 02/05/25 08:19 Dose: 650 mg Al Hydroxide/Mg Hydroxide (Magnesium Hydrox/Alum Hydrox 30 Ml Oral.Susp) 30 ml PO Q6H PRN PRN Reason: Heartburn/Nausea Last Admin: 01/31/25 20:09 Dose: 30 ml Aripiprazole 2 mg/ (Aripiprazole 5 mg) 7 mg PO DAILY [facility] Last Admin: 02/12/25 08:38 Dose: 7 mg Benzocaine (Throat Lozenge, Medicated Lozenge) 1 lozenge MUCOUS MEM Q1H PRN PRN Reason: Sore Throat Last Admin: 02/02/25 11:26 Dose: 1 lozenge Bupropion HCl (Bupropion Hcl Xl 300 Mg Tab.Er.24h) 300 mg PO DAILY [facility] Last Admin: 02/12/25 08:38 Dose: 300 mg Clonazepam (Clonazepam 0.5 Mg Tablet) 0.5 mg PO BID PRN PRN Reason: SEVERE ANXIETY Last Admin: 02/12/25 08:47 Dose: 0.5 mg Clonazepam (Clonazepam 0.5 Mg Tablet) 0.25 mg PO BID PRN PRN Reason: SEVERE ANXIETY Last Admin: 02/12/25 08:47 Dose: 0.25 mg Cyproheptadine HCl (Cyproheptadine Hcl 4 Mg Tablet) 8 mg PO BEDTIME [facility] Last Admin: 02/11/25 20:48 Dose: 8 mg Diphenhydramine HCl (Diphenhydramine Hcl 25 Mg Capsule) 50 mg PO Q6H PRN PRN Reason: mild anxiety or insomnia Last Admin: 02/12/25 08:47 Dose: 50 mg Docusate Sodium (Docusate Sodium 100 Mg Capsule) 100 mg PO DAILY PRN PRN Reason: constipation Escitalopram Oxalate (Escitalopram Oxalate 10 Mg Tablet) 10 mg PO DAILY [facility] Last Admin: 02/12/25 08:38 Dose: 10 mg Gabapentin (Gabapentin 300 Mg Capsule) 300 mg PO TID [facility] Last Admin: 02/12/25 08:38 Dose: 300 mg Guaifenesin (Guaifenesin La 600 Mg Tab.Er.12h) 1,200 mg PO BID PRN PRN Reason: Cough Last Admin: 02/03/25 21:59 Dose: 1,200 mg Ibuprofen (Ibuprofen 600 Mg Tablet) 600 mg PO Q6H PRN PRN Reason: Pain, Moderate(Pain Scale 4-6) Last Admin: 02/09/25 08:52 Dose: 600 mg Magnesium Hydroxide (Milk Of Magnesia 30 Ml Oral.Susp) 30 ml PO DAILY PRN PRN Reason: Constipation Melatonin (Melatonin 3 Mg Tablet) 6 mg PO BEDTIME PRN PRN Reason: insomnia Methadone HCl (Methadone Hcl 20 Mg/2 Ml Oral.Conc) 30 mg PO DAILY@0800 [facility] Last Admin: 02/12/25 08:00 Dose: 30 mg Methadone HCl (Methadone Hcl 20 Mg/2 Ml Oral.Conc) 42 mg PO DAILY@1800 [facility] Last Admin: 02/11/25 18:11 Dose: 42 mg Nicotine (Nicotine 21 Mg Patch.Td24) 21 mg TRANSDERMA DAILY PRN PRN Reason: nicotine craving Nicotine Polacrilex (Nicotine Polacrilex 2 Mg Gum) 2 mg BUCCAL Q2H PRN PRN Reason: Nicotine Cravings Propranolol HCl (Propranolol Hcl 10 Mg Tablet) 10 mg PO BID PRN; Protocol PRN Reason: mild panic/anxiety Last Admin: 02/11/25 20:55 Dose: 10 mg Allergies Allergies Allergy/AdvReac Type Severity Reaction Status Date / Time trazodone (TRAZODONE) Allergy Severe SHORTNESS Verified 01/31/25 10:54 OF BREATH, GASPING FOR AIR , SOB aspirin (ASPIRIN) Allergy Unknown STOMACH Verified 01/31/25 10:54 UPSET, Nausea, nausa ciprofloxacin (Cipro) Allergy Unknown Rash Verified 01/31/25 10:54 promethazine (Phenergan) Allergy Unknown Hives Verified 01/31/25 10:54 Sulfa (Sulfonamide Allergy Unknown Unknown Verified 01/31/25 10:54 Antibiotics) Assessment & Plan Assessment & Plan (1) PTSD (post-traumatic stress disorder): Status: Acute Code(s): F43.10 - Post-traumatic stress disorder, unspecified (2) Major depression, recurrent: Status: Acute Code(s): F33.9 - Major depressive disorder, recurrent, unspecified (3) Opioid dependence: Status: Acute Code(s): F11.20 - Opioid dependence, uncomplicated (4) Cocaine use disorder, moderate, dependence: Status: Acute Code(s): F14.20 - Cocaine dependence, uncomplicated Plan 02/01: continue methadone. periodically check QTc. DC zoloft - not on that medication currently. increase abilify from 5 to 7 daily for mood. continue lexapro 5. decrease klonopin to 0.75 per dose. restart wellbutrin 150, increase to 300 after 3 days. counseled abstinence (utox methadone, cocaine, fentanyl, benzo POS). refer for outpt therapy and medications mgmt. 02/03: affect improved, more time in milieu. increase lexapro to 10 mg daily. add benadryl 50 PRN anxiety per pt request. otherwise continue current mgmt. 02/04: start prazosin 1 mg QHS for nightmares and insomnia in PTSD; titrate as indicated. otherwise continue current mgmt. 02/05: Titrate prazosin to 2 mg qhs for nightmares/insomnia off-label. Otherwise continue current med regimen/tx plan 02/06: Pt agreeable w/ plan to titrate prazosin to 3 mg qhs off-label for hyperarousal sx in setting of PTSD. Monitor for s/sx of hypotension. Titrate gabapentin to 300 mg tid off-label for tx of anxiety. Monitor for excessive sedation. 02/07: Pt endorsed increased sedation today, which could be related to cold sx or addition of 300 mg gabapentin at midday. Pt would like to continue gabapentin 300 mg tid for now. Will d/c prazosin due to lack of efficacy & hypotension (will not taper since it was recently started and she is hypotensive). Will trial cyproheptadine 4 mg off-label to target nightmares. Reviewed med r/b/a. Will aim for d/c next wk back to sober living house if they accept her. 02/08: Pt reports reduction in nightmares w/ cyproheptadine. Will continue current med regimen for now. 02/09: Pt agreeable w/ plan to titrate cyproheptadine off-label to reduce nightmares. Will lower propranolol to 10 mg bid (for anxiety) to reduce risk of hypotension/bradycardia. otherwise continue current tx plan 02/10/2025: Restart Benadryl as needed, as patient was finding this helpful 02/11/2025: No changes 02/12/25: Will d/c cyproheptadine due to lack of signif benefit, re-starting Benadryl over the weekend and potential contribution to worsening am hypotension. otherwise continue current med regimen. D/C planned for tomorrow Patient educated on: medication risk/benefits Informed Consent: understands Reason for continued inpatient stay Substantial Risk for: med/psych decompensation Time Spent With Patient Time: Total time managing care of this patient today ___30_ minutes.
[2025-02-12] MEDS: methADONE HCl 20 MG/2 ML ORAL.CONC 42 MG PO (18:05)
[2025-02-12 19:54] VITALS: BP 117/63; PULSE 65; RESP 16; TEMP 36.5; O2SAT 96
[2025-02-13 07:34] VITALS: BP 114/62; PULSE 61; RESP 18; TEMP 36.3; O2SAT 96
[2025-02-13] MEDS: methADONE HCl 20 MG/2 ML ORAL.CONC 30 MG PO (08:12)
[2025-02-13] MEDS: buPROPion HCl XL 300 MG TAB.ER.24H PO (08:14)
--- NOTE | 2025-02-13 09:27 | HO.PSYCHPN ---
Subjective Subjective Reason For Visit: SI and HI Diagnostics Vital Signs (24Hr): Vital Signs - 24 hr 02/12/25 19:54 02/13/25 07:34 Temperature 97.7 F 97.4 F Pulse Rate 65 61 Respiratory Rate 16 18 Blood Pressure 117/63 114/62 Pulse Oximetry 96 96 Oxygen Delivery Method Room Air Room Air BMI result Body Mass Index 26.7 Labs 01/31/25 11:48 02/01/25 07:35 Medications Medications Current Medications Acetaminophen (Acetaminophen 325 Mg Tablet) 650 mg PO Q6H PRN PRN Reason: Headache/Pain, Scale 1-10 Last Admin: 02/05/25 08:19 Dose: 650 mg Al Hydroxide/Mg Hydroxide (Magnesium Hydrox/Alum Hydrox 30 Ml Oral.Susp) 30 ml PO Q6H PRN PRN Reason: Heartburn/Nausea Last Admin: 01/31/25 20:09 Dose: 30 ml Aripiprazole 2 mg/ (Aripiprazole 5 mg) 7 mg PO DAILY [facility] Last Admin: 02/13/25 08:14 Dose: 7 mg Benzocaine (Throat Lozenge, Medicated Lozenge) 1 lozenge MUCOUS MEM Q1H PRN PRN Reason: Sore Throat Last Admin: 02/02/25 11:26 Dose: 1 lozenge Bupropion HCl (Bupropion Hcl Xl 300 Mg Tab.Er.24h) 300 mg PO DAILY [facility] Last Admin: 02/13/25 08:14 Dose: 300 mg Clonazepam (Clonazepam 0.5 Mg Tablet) 0.5 mg PO BID PRN PRN Reason: SEVERE ANXIETY Last Admin: 02/13/25 08:20 Dose: 0.5 mg Clonazepam (Clonazepam 0.5 Mg Tablet) 0.25 mg PO BID PRN PRN Reason: SEVERE ANXIETY Last Admin: 02/13/25 08:21 Dose: 0.25 mg Cyproheptadine HCl (Cyproheptadine Hcl 4 Mg Tablet) 8 mg PO BEDTIME [facility] Last Admin: 02/12/25 20:48 Dose: 8 mg Diphenhydramine HCl (Diphenhydramine Hcl 25 Mg Capsule) 50 mg PO Q6H PRN PRN Reason: mild anxiety or insomnia Last Admin: 02/12/25 21:00 Dose: 50 mg Docusate Sodium (Docusate Sodium 100 Mg Capsule) 100 mg PO DAILY PRN PRN Reason: constipation Escitalopram Oxalate (Escitalopram Oxalate 10 Mg Tablet) 10 mg PO DAILY [facility] Last Admin: 02/13/25 08:14 Dose: 10 mg Gabapentin (Gabapentin 300 Mg Capsule) 300 mg PO TID [facility] Last Admin: 02/13/25 08:14 Dose: 300 mg Guaifenesin (Guaifenesin La 600 Mg Tab.Er.12h) 1,200 mg PO BID PRN PRN Reason: Cough Last Admin: 02/03/25 21:59 Dose: 1,200 mg Ibuprofen (Ibuprofen 600 Mg Tablet) 600 mg PO Q6H PRN PRN Reason: Pain, Moderate(Pain Scale 4-6) Last Admin: 02/09/25 08:52 Dose: 600 mg Magnesium Hydroxide (Milk Of Magnesia 30 Ml Oral.Susp) 30 ml PO DAILY PRN PRN Reason: Constipation Melatonin (Melatonin 3 Mg Tablet) 6 mg PO BEDTIME PRN PRN Reason: insomnia Methadone HCl (Methadone Hcl 20 Mg/2 Ml Oral.Conc) 30 mg PO DAILY@0800 [facility] Last Admin: 02/13/25 08:12 Dose: 30 mg Methadone HCl (Methadone Hcl 20 Mg/2 Ml Oral.Conc) 42 mg PO DAILY@1800 [facility] Last Admin: 02/12/25 18:05 Dose: 42 mg Nicotine (Nicotine 21 Mg Patch.Td24) 21 mg TRANSDERMA DAILY PRN PRN Reason: nicotine craving Nicotine Polacrilex (Nicotine Polacrilex 2 Mg Gum) 2 mg BUCCAL Q2H PRN PRN Reason: Nicotine Cravings Propranolol HCl (Propranolol Hcl 10 Mg Tablet) 10 mg PO BID PRN; Protocol PRN Reason: mild panic/anxiety Last Admin: 02/12/25 20:50 Dose: 10 mg Allergies Allergies Allergy/AdvReac Type Severity Reaction Status Date / Time trazodone (TRAZODONE) Allergy Severe SHORTNESS Verified 01/31/25 10:54 OF BREATH, GASPING FOR AIR , SOB aspirin (ASPIRIN) Allergy Unknown STOMACH Verified 01/31/25 10:54 UPSET, Nausea, nausa ciprofloxacin (Cipro) Allergy Unknown Rash Verified 01/31/25 10:54 promethazine (Phenergan) Allergy Unknown Hives Verified 01/31/25 10:54 Sulfa (Sulfonamide Allergy Unknown Unknown Verified 01/31/25 10:54 Antibiotics) Assessment & Plan Assessment & Plan (1) PTSD (post-traumatic stress disorder): Status: Acute Code(s): F43.10 - Post-traumatic stress disorder, unspecified (2) Major depression, recurrent: Status: Acute Code(s): F33.9 - Major depressive disorder, recurrent, unspecified (3) Opioid dependence: Status: Acute Code(s): F11.20 - Opioid dependence, uncomplicated (4) Cocaine use disorder, moderate, dependence: Status: Acute Code(s): F14.20 - Cocaine dependence, uncomplicated Plan 02/01: continue methadone. periodically check QTc. DC zoloft - not on that medication currently. increase abilify from 5 to 7 daily for mood. continue lexapro 5. decrease klonopin to 0.75 per dose. restart wellbutrin 150, increase to 300 after 3 days. counseled abstinence (utox methadone, cocaine, fentanyl, benzo POS). refer for outpt therapy and medications mgmt. 02/03: affect improved, more time in milieu. increase lexapro to 10 mg daily. add benadryl 50 PRN anxiety per pt request. otherwise continue current mgmt. 02/04: start prazosin 1 mg QHS for nightmares and insomnia in PTSD; titrate as indicated. otherwise continue current mgmt. 02/05: Titrate prazosin to 2 mg qhs for nightmares/insomnia off-label. Otherwise continue current med regimen/tx plan 02/06: Pt agreeable w/ plan to titrate prazosin to 3 mg qhs off-label for hyperarousal sx in setting of PTSD. Monitor for s/sx of hypotension. Titrate gabapentin to 300 mg tid off-label for tx of anxiety. Monitor for excessive sedation. 02/07: Pt endorsed increased sedation today, which could be related to cold sx or addition of 300 mg gabapentin at midday. Pt would like to continue gabapentin 300 mg tid for now. Will d/c prazosin due to lack of efficacy & hypotension (will not taper since it was recently started and she is hypotensive). Will trial cyproheptadine 4 mg off-label to target nightmares. Reviewed med r/b/a. Will aim for d/c next wk back to sober living house if they accept her. 02/08: Pt reports reduction in nightmares w/ cyproheptadine. Will continue current med regimen for now. 02/09: Pt agreeable w/ plan to titrate cyproheptadine off-label to reduce nightmares. Will lower propranolol to 10 mg bid (for anxiety) to reduce risk of hypotension/bradycardia. otherwise continue current tx plan 02/10/2025: Restart Benadryl as needed, as patient was finding this helpful 02/11/2025: No changes 02/12/25: Will d/c cyproheptadine due to lack of signif benefit, re-starting Benadryl over the weekend and potential contribution to worsening am hypotension. otherwise continue current med regimen. D/C planned for tomorrow Time Spent With Patient Time: Total time managing care of this patient today ____ minutes.
[2025-02-13] MEDS: methADONE HCl 20 MG/2 ML ORAL.CONC 42 MG PO (10:57)
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
== END 2025-02-13 11:42 | disposition home or self-care (01) | DRG 751 ==
LOC: HO.ED 15:18 → HO.PADLT16 20:22
PROVIDERS: Physician Assistant Medical; Admitting Provider Nurse Practitioner Psychiatric/Mental Health; Emergency Provider Emergency Medicine; PCP Internal Medicine; Visit Provider Psychiatry & Neurology Psychiatry
DX: F33.9 Major depressive disorder, recurrent, unspecified (principal); R45.851 Suicidal ideations; I95.9 Hypotension, unspecified; R94.31 Abnormal electrocardiogram [ECG] [EKG]; F11.20 Opioid dependence, uncomplicated; E87.6 Hypokalemia; F43.10 Post-traumatic stress disorder, unspecified; F14.20 Cocaine dependence, uncomplicated; J44.9 Chronic obstructive pulmonary disease, unspecified; Z20.822 Contact with and (suspected) exposure to COVID-19; Z87.891 Personal history of nicotine dependence; Z79.899 Other long term (current) drug therapy
CPT/HCPCS: 36415; 80048; 80053; 80061; 80143; 80179; 80307; 81001; 81003; 81025; 83036; 83735; 84439; 84443; 85025; 87635; 93005; 99285; J3475; S9485

== ENCOUNTER → 2025-01-31 10:54 | Outpatient (BNV) | payer OTHER, SELFPAY | PROVIDERS: Admitting Provider Nurse Practitioner Psychiatric/Mental Health; Emergency Provider Emergency Medicine; PCP Internal Medicine; Visit Provider Internal Medicine Cardiovascular Disease | DX: R94.31 Abnormal electrocardiogram [ECG] [EKG] (principal); Z13.6 Encounter for screening for cardiovascular disorders | CPT/HCPCS: 93010 ==

== ENCOUNTER 2025-01-31 19:35 | Outpatient (BNV) | payer OTHER, SELFPAY | END 2025-02-01 06:30 | PROVIDERS: Admitting Provider Nurse Practitioner Psychiatric/Mental Health; Emergency Provider Emergency Medicine; PCP Internal Medicine; Visit Provider Internal Medicine Cardiovascular Disease | DX: R94.31 Abnormal electrocardiogram [ECG] [EKG] (principal); Z13.6 Encounter for screening for cardiovascular disorders | CPT/HCPCS: 93010 ==

== ENCOUNTER → 2025-01-31 19:35 | Outpatient (BNV) | payer OTHER, SELFPAY | PROVIDERS: Admitting Provider Nurse Practitioner Psychiatric/Mental Health; Emergency Provider Emergency Medicine; PCP Internal Medicine; Visit Provider Nurse Practitioner Family | DX: R94.31 Abnormal electrocardiogram [ECG] [EKG] (principal) | CPT/HCPCS: 99221 ==

== ENCOUNTER → 2025-01-31 19:35 | Outpatient (BNV) | payer OTHER, SELFPAY | PROVIDERS: Admitting Provider Nurse Practitioner Psychiatric/Mental Health; Emergency Provider Emergency Medicine; PCP Internal Medicine; Visit Provider Psychiatry & Neurology Psychiatry | DX: F43.10 Post-traumatic stress disorder, unspecified (principal); F33.9 Major depressive disorder, recurrent, unspecified; F11.20 Opioid dependence, uncomplicated; F14.20 Cocaine dependence, uncomplicated | CPT/HCPCS: 90792; 99231; 99232 ==